=== PATIENT | female | born 1980 | race Caucasian/White ===

== ENCOUNTER → 2022-02-07 07:57 | Outpatient (BNVA) | payer OTHER, SELFPAY | PROVIDERS: PCP Pediatrics; Visit Provider Nurse Practitioner Family | DX: G70.00 Myasthenia gravis without (acute) exacerbation (principal); B02.9 Zoster without complications; H53.2 Diplopia; K58.9 Irritable bowel syndrome, unspecified; Z79.899 Other long term (current) drug therapy | CPT/HCPCS: 99212 ==

== ENCOUNTER → 2022-11-29 08:12 | Outpatient (BNVA) | payer OTHER, SELFPAY | PROVIDERS: PCP Pediatrics; Visit Provider Nurse Practitioner Family | DX: Z13.89 Encounter for screening for other disorder (principal) ==

== ENCOUNTER 2023-07-15 08:02 | Outpatient (AMB) | payer OTHER, SELFPAY ==
--- NOTE | 2023-07-15 08:07 | MHC.OFFVIS ---
Intake Vital Signs 07/15/23 08:08 Height 5 ft 2 in Weight 277 lb 2 oz BMI 50.7 BP 130/92 H Blood Pressure Location Rt brachial Position Sitting Pulse 86 Pulse Source Pulse Oximeter Pulse Oximetry (%) 97 Oxygen Delivery Method Room Air Intake Visit Reasons: 4m follow up - Confirmed Intake Note: Patient presents for follow up. Patient states no concerns today. Allergies hydromorphone [From Dilaudid] Allergy (Severe, Verified 07/15/23 08:09) Hives sulfamethoxazole [From Bactrim] Allergy (Severe, Verified 07/15/23 08:09) Rash trimethoprim [From Bactrim] Allergy (Severe, Verified 07/15/23 08:09) Rash clindamycin Allergy (Intermediate, Verified 07/15/23 08:09) Rash acetaminophen [From Percocet] Allergy (Mild, Verified 07/15/23 08:09) axitation erythromycin base Allergy (Mild, Verified 07/15/23 08:09) mg flare oxycodone [From Percocet] Allergy (Mild, Verified 07/15/23 08:09) axitation Medication List - Last Reconciled 07/15/23 by ELINOR Ramon cephalexin 500 mg PO TID escitalopram oxalate (Lexapro) 5 mg PO DAILY ketoconazole 2% appl topical DAILY levothyroxine 75 mcg PO DAILY liothyronine (Cytomel) 5 mcg PO BID lisinopril 20 mg PO DAILY mometasone 0.1% appl topical DAILY pyridostigmine bromide (Mestinon) 30 mg orally 6 times a day, may take extra 1-2 doses per day prn diplopia; 90 days semaglutide (Ozempic) 1 mg subcut QWEEK HPI HPI Comments History of Present Illness Details 43-yr-old female presents for f/u visit. She had another Covid-19 infection in early Jun- states was primarily cold/flu s/s, fatigued, sore legs. Pt reports she had a weight increase and had increased snoring. She had a HST which showed mild sleep apnea. She is sleeping better with CPAP and has more daytiem energy. F/b SMS- Nandini. She also started Ozempic- for pre-diabetes and weight loss. She states her MG is stable- intermittent diplopia, swallowing, and generalized weakness- worse when the weather is warmer and more humid.. She is taking Mestinon 30mg 5 x's per day, if increased triggers (being outside) may take an extra 1-2 1/2 tabs per day. Her MG AB labs are still pending. Since the weight gain, she is feeling more off-balance. This can overlap w/ when her MG symptoms have flared up. May use a cane when walking on her own. [facility] Medical History (Reviewed 11/29/22 @ 08:22 by Donita Moon [facility] [address]) COVID-19 virus infection Depression Hypothyroidism Surgical History Hx of cholecystectomy Family History (Updated 07/15/23 @ 08:12 by COREY Meier) Mother Diabetes HTN (hypertension) Hyperlipidemia Father Diabetes HTN (hypertension) Hyperlipidemia Skin cancer Social History Alcohol intake: current Alcohol intake frequency: a few times a week Patient Tobacco Use Status: Never used Tobacco Review of Systems Const All systems reviewed & are unremarkable except as noted in HPI and below Physical Exam Vital Signs: Last Vital Signs Pulse 86 07/15/23 08:08 BP 130/92 H 07/15/23 08:08 Pulse Ox 97 07/15/23 08:08 Oxygen Delivery Method Room Air 07/15/23 08:08 BMI result Body Mass Index 50.7 Const General: cooperative and no acute distress Orientation/consciousness: patient oriented x3 HEENT Head: Yes normocephalic Resp Effort & Inspection: normal respiratory effort and able to speak in complete sentences Neuro General: patient oriented x3, gait normal and CN's II-XI intact bilaterally Cognition (Neuro): normal cognition Motor exam (neuro): 5/5 motor strength present throughout Psych Appearance: grossly normal Mental Status: mental status grossly normal Speech and movement: Normal speech and movement present Affect: normal affect Attitude: cooperative Thought process: Normal thought process present Thought content: Normal thought content present Insight: Good insight present (Psych) Judgement: Good judgement present (Psych) Assessment & Plan Assessment & Plan (1) Myasthenia gravis: Comment: ACHR-AB negative Code(s): G70.00 - Myasthenia gravis without (acute) exacerbation (2) Diplopia: Code(s): H53.2 - Diplopia (3) IBS (irritable bowel syndrome): Code(s): K58.9 - Irritable bowel syndrome without diarrhea (4) Weakness: Code(s): R53.1 - Weakness Plan Will request MG AB labs when available. For now, continue Mestinon 60mg- 1/2 tab 4-6 times per day, and extra 1/2 tab as needed. Continue increased exercise, adhering to a healthy diet, MG trigger avoidance as able Monitor myasthenia symptoms- diplopia, swallowing, and generalized weakness. Future considerations: Cellcept, IvIG Medications: Refilled pyridostigmine bromide (Mestinon) (1/2 x 60 mg) 30 mg orally 6 times a day, may take extra 1-2 doses per day prn diplopia; 90 days 285 tabs 1RF Coding Level of Care Code Est Pt Level 4 (84053) Diagnoses Myasthenia gravis G70.00 Diplopia H53.2 IBS (irritable bowel syndrome) K58.9 Weakness R53.1
[2023-07-15 08:08] VITALS: BP 130/92; PULSE 86; O2SAT 97; BMI 50.7
== END 2023-07-15 08:48 | disposition home or self-care (01) ==
PROVIDERS: Visit Provider Nurse Practitioner Family
DX: G70.00 Myasthenia gravis without (acute) exacerbation (principal); H53.2 Diplopia; K58.9 Irritable bowel syndrome, unspecified; R53.1 Weakness
CPT/HCPCS: 99214

== ENCOUNTER → 2023-07-15 08:02 | Outpatient (BNVA) | payer OTHER, SELFPAY | PROVIDERS: Visit Provider Nurse Practitioner Family | DX: G70.00 Myasthenia gravis without (acute) exacerbation (principal) ==

== ENCOUNTER 2024-01-15 09:14 | Outpatient (AMB) | payer OTHER, SELFPAY ==
--- NOTE | 2024-01-15 09:15 | MHC.OFFVIS ---
Intake Intake Visit Reasons: 6m follow up-LVM Intake Note: Patient presents for6 month follow up. pt. wants to discuss medication dosage. Allergies hydromorphone [From Dilaudid] Allergy (Severe, Verified 01/15/24 09:16) Hives sulfamethoxazole [From Bactrim] Allergy (Severe, Verified 01/15/24 09:16) Rash trimethoprim [From Bactrim] Allergy (Severe, Verified 01/15/24 09:16) Rash clindamycin Allergy (Intermediate, Verified 01/15/24 09:16) Rash acetaminophen [From Percocet] Allergy (Mild, Verified 01/15/24 09:16) axitation erythromycin base Allergy (Mild, Verified 01/15/24 09:16) mg flare oxycodone [From Percocet] Allergy (Mild, Verified 01/15/24 09:16) axitation Medication List - Last Reconciled 01/15/24 by ELINOR Ramon cephalexin 500 mg PO TID escitalopram oxalate (Lexapro) 5 mg PO DAILY ketoconazole 2% appl topical DAILY levothyroxine 75 mcg PO DAILY liothyronine (Cytomel) 5 mcg PO BID lisinopril 20 mg PO DAILY mometasone 0.1% appl topical DAILY pyridostigmine bromide (Mestinon) 30 mg orally 6 times a day, may take extra 1-2 doses per day prn diplopia; 90 days semaglutide (Ozempic) 1 mg subcut QWEEK HPI HPI Comments History of Present Illness Details 43-yr-old female presents for f/u televideo visit via [employer]. Pt reports she has not been She had a Covid-19 negative URI and a post-viral cough x's 2 months and GIs/s. CXR- was WNL. She did sprain her side from coughing, and could not get up much x's the last 1-2 month. This has led to another 20lb weight gain. Her Ozempic was held when she was sick, but this has been resumed recently. She resumed her nutrition plan. She has been noticing more pronounced diplopia. Wakes up with diplopia, cannot see her phone. Needing to take more Mestinon in order to use her computer more frequently- from 30mg to 60mg a few times a week. Otherwise taking 30mg qid. She has been having increased chewing (jaw becomes tired) and swallowing difficulties- takes more effort- timing eating around the timing of her Mestinon. Has not noticed any SOB- but has just recently been more active. Needing to use her cane again- her body is uncomfortable. She notes the weight gain has not helped her mobility. She has to plan to sit down after showering d/t the humidity causing her to feel more weak. Her mood is good. Is seeing her therapist weekly. [facility] Medical History COVID-19 virus infection Depression Hypothyroidism Surgical History Hx of cholecystectomy Family History Mother Diabetes HTN (hypertension) Hyperlipidemia Father Diabetes HTN (hypertension) Hyperlipidemia Skin cancer Social History Alcohol intake: current Alcohol intake frequency: a few times a week Patient Tobacco Use Status: Never used Tobacco Physical Exam Const General: cooperative and no acute distress Orientation/consciousness: patient oriented x3 Resp Effort & Inspection: normal respiratory effort and able to speak in complete sentences Neuro General: patient oriented x3 Cognition (Neuro): normal cognition Psych Appearance: grossly normal Mental Status: mental status grossly normal Speech and movement: Normal speech and movement present Affect: normal affect Attitude: cooperative Assessment & Plan Assessment & Plan (1) Myasthenia gravis: Comment: ACHR-AB negative Code(s): G70.00 - Myasthenia gravis without (acute) exacerbation (2) Diplopia: Code(s): H53.2 - Diplopia (3) Weakness: Code(s): R53.1 - Weakness (4) Mild obstructive sleep apnea: Code(s): G47.33 - Obstructive sleep apnea (adult) (pediatric) (5) Weight gain: Code(s): R63.5 - Abnormal weight gain Plan ACHR AB and anti-MuSK AB- negative. Increase Mestinon 30mg tid and 60mg at bedtime, may increase up to 60mg QID and extra 1/2 tab as needed. Continue adhering to a healthy diet, MG trigger avoidance as able. Increase physical activity- slowly, paced. Monitor myasthenia symptoms- diplopia, swallowing, and generalized weakness. Future considerations: Mestinon extended release, Cellcept, IvIG Telehealth Telehealth Location of provider rendering services: practice address Location of patient: address on file Patient Identification confirmed using: Name, : Yes Telehealth method: video Patient verbally consented to treatment: Yes Patient verbally consented to billing insurance company: Yes Patient informed of any privacy concerns related to visit: Yes Minutes spent on Phone/Video with Pt.: 23 Coding Level of Care Code Tele Est Pt Level 4 (48172) Diagnoses Myasthenia gravis G70.00 Diplopia H53.2 Weakness R53.1 Mild obstructive sleep apnea G47.33 Weight gain R63.5
== END 2024-01-15 14:26 | disposition home or self-care (01) ==
LOC: HO.HSMS 09:15
PROVIDERS: PCP Pediatrics; Visit Provider Nurse Practitioner Family
DX: G70.00 Myasthenia gravis without (acute) exacerbation (principal); H53.2 Diplopia; R53.1 Weakness; G47.33 Obstructive sleep apnea (adult) (pediatric); R63.5 Abnormal weight gain
CPT/HCPCS: 99214

== ENCOUNTER → 2024-01-15 09:14 | Outpatient (BNVA) | payer OTHER, SELFPAY | PROVIDERS: PCP Pediatrics; Visit Provider Nurse Practitioner Family | DX: G70.00 Myasthenia gravis without (acute) exacerbation (principal) ==

== ENCOUNTER 2024-04-30 08:48 | Outpatient (AMB) | payer OTHER, SELFPAY ==
--- NOTE | 2024-04-30 08:52 | A.OFFVIS_ITS ---
Vital Signs 04/30/24 08:53 Height 5 ft Weight 289 lb BMI 56.4 BP 114/84 Blood Pressure Location Rt brachial Position Sitting Pulse 90 Pulse Source Pulse Oximeter Pulse Oximetry (%) 96 Oxygen Delivery Method Room Air Intake Visit Reasons: follow up - LVM Intake Note: Patient presents for follow up. patient has no changes. Allergies hydromorphone [From Dilaudid] Allergy (Severe, Verified 04/30/24 08:56) Hives sulfamethoxazole [From Bactrim] Allergy (Severe, Verified 04/30/24 08:56) Rash trimethoprim [From Bactrim] Allergy (Severe, Verified 04/30/24 08:56) Rash clindamycin Allergy (Intermediate, Verified 04/30/24 08:56) Rash acetaminophen [From Percocet] Allergy (Mild, Verified 04/30/24 08:56) axitation erythromycin base Allergy (Mild, Verified 04/30/24 08:56) mg flare oxycodone [From Percocet] Allergy (Mild, Verified 04/30/24 08:56) axitation Medication List - Last Reconciled 04/30/24 by ELINOR Ramon cephalexin 500 mg PO TID escitalopram oxalate (Lexapro) 5 mg PO DAILY ketoconazole 2% appl topical DAILY levothyroxine 75 mcg PO DAILY liothyronine (Cytomel) 5 mcg PO BID lisinopril 20 mg PO DAILY mometasone 0.1% appl topical DAILY pyridostigmine bromide (Mestinon) 30 mg orally 6 times a day, may take extra 1-2 doses per day prn diplopia; 90 days semaglutide (Ozempic) 1 mg subcut QWEEK HPI Comments Details: 44-yr-old female presents for f/u visit. Pt denies any significant interval medical changes. Pt reports she is still struggling with mobility, which has affected her ability to do her ADLs and walk well. She notes some days are better than others. Some days she feels overall weaker, triggered by the warmer temperatures or temperature changes- which she contributes to the MG. Feels this in her arms, but can be in her legs and generalized as well. Sometimes trouble swallowing- gagging on her own saliva in the am. Not noticing SOB- but not overly active. She finds herself needing to support herself- say leaning against counter, proppring ehrself up on the couch, using a cane. She has increased the Mestinon to 60mg tab - tid w/ extra 1/2 tab prn. (1, 11/18, 11/18, 1). The tab at night, helps to suppress her nocturnal diplopia. She is still trying to mange her triggers. Resting in an space w/ AC and taking 1/2 tab Mesitinon helps after 15-20 minutes- but this can prevent her from driving or engaging in activities while waiting. [facility] Medical History COVID-19 virus infection Depression Hypothyroidism Surgical History Hx of cholecystectomy Family History Mother Diabetes HTN (hypertension) Hyperlipidemia Father Diabetes HTN (hypertension) Hyperlipidemia Skin cancer Social History Alcohol intake: current Alcohol intake frequency: a few times a week Patient Tobacco Use Status: Never used Tobacco Review of Systems Const All systems reviewed & are unremarkable except as noted in HPI and below Physical Exam Vital Signs: Last Vital Signs Pulse 90 04/30/24 08:53 BP 114/84 04/30/24 08:53 Pulse Ox 96 04/30/24 08:53 Oxygen Delivery Method Room Air 04/30/24 08:53 BMI result Body Mass Index 56.4 Const General: cooperative and no acute distress Orientation/consciousness: patient oriented x3 HEENT Head: Yes normocephalic Resp Effort & Inspection: normal respiratory effort and able to speak in complete sentences Neuro General: patient oriented x3, gait normal and CN's II-XI intact bilaterally Cognition (Neuro): normal cognition Motor exam (neuro): 5/5 motor strength present throughout Psych Appearance: grossly normal Mental Status: mental status grossly normal Speech and movement: Normal speech and movement present Affect: normal affect Attitude: cooperative Thought process: Normal thought process present Thought content: Normal thought content present Insight: Good insight present (Psych) Judgement: Good judgement present (Psych) Assessment & Plan Assessment & Plan (1) Myasthenia gravis: Comment: ACHR-AB negative Code(s): - Myasthenia gravis without (acute) exacerbation Category: Medical Plan ACHR AB and anti-MuSK AB- negative. Start Mycophenolate mofetil 500mg orally twice a day in hopes this improves MG control- reduces weakness, diplopia, dysphagia. Would avoid chronic glucocorticoids, such as prednisone, use d/t risk for weight gain. Increase Mestinon to 180mg ER bid, as Mycophenolate mofetil may take 6-12 months to take full effect. May continue Mestinon 30mg tid prn. With starting Mycophenolate mofetil, will monitor labs closely. Lab orders mailed to pt and written instruction sent via portal. CBC w/ diff baseline weekly for first month, twice monthly during months 2 and 3, then monthly thereafter through the first year. CMP baseline and then monthly HCG baseline and in 2 weeks Hep B & C profile- baseline. Pt should establish care w/ a air value tester if she does not have one. Concur w/ starting PT and OT. Monitor myasthenia symptoms- diplopia, swallowing, and generalized weakness. f/u upon review of labs and in clinic in 3-4 months or sooner prn. Orders: Orders Complete Blood Count Auto Diff 04/30/24 G70. - Myasthenia gravis without (acute) exacerbation Hepatitis B,C Profile 04/30/2470. - Myasthenia gravis without (acute) exacerbation Comprehensive Met. Panel 04/30/24 G70. - Myasthenia gravis without (acute) exacerbation HCG Quantitative 04/30/2470. - Myasthenia gravis without (acute) exacerbation Medications: New pyridostigmine bromide ER (Mestinon Timespan) administer 6 hours apart 180 mg PO BID 60 tabs 6RF 30 days mycophenolate mofetil (CellCept) 500 mg PO BID 60 tabs 6RF 30 days Coding Level of Care Code Est Pt Level 4 (77925) Diagnoses Myasthenia gravis G
[2024-04-30 08:53] VITALS: BP 114/84; PULSE 90; O2SAT 96; BMI 56.4
== END 2024-04-30 09:58 | disposition home or self-care (01) ==
PROVIDERS: PCP Pediatrics; Visit Provider Nurse Practitioner Family
DX: G70.00 Myasthenia gravis without (acute) exacerbation (principal)
CPT/HCPCS: 99214

== ENCOUNTER → 2024-04-30 08:48 | Outpatient (BNVA) | payer OTHER, SELFPAY | PROVIDERS: PCP Pediatrics; Visit Provider Nurse Practitioner Family | DX: G70.00 Myasthenia gravis without (acute) exacerbation (principal) ==

== ENCOUNTER 2024-05-21 14:37 | Outpatient (REF) | payer OTHER, SELFPAY ==
[2024-05-21 14:58] LABS: MANUAL DIFF FLAG NO
[2024-05-21 15:36] LABS: Basophils Percent Auto 0.4 % (0-2); Eosinophils Absolute Auto 0.1 X10*3/uL (0.0-0.4); Eosinophils Percent Auto 1.1 % (0-4); Hematocrit 40.8 % (37.0-47.0); Hemoglobin 13.5 g/dl (12.0-16.0); Imm Gran Abs Auto 0.04 X10*3/uL (0.00-0.03); Imm Gran Pct Auto 0.5 % (0.0-0.4); Lymphocytes Absolute Auto 2.3 X10*3/uL (1.2-4.9); Lymphocytes Percent Auto 27.5 % (20-40); Mean Corpuscular HGB Conc 33.1 g/dl (31.0-35.0); Mean Corpuscular Hemoglobin 30.9 pg (27.0-33.0); Mean Corpuscular Volume 93.4 fL (80.0-98.0); Monocytes Absolute Auto 0.5 X10*3/uL (0.1-1.2); Monocytes Percent Auto 6.2 % (2-11); Neutrophils Absolute Auto 5.3 x10*3/uL (2.0-8.3); Neutrophils Percent Auto 64.3 % (45-73); Platelet Count 264 X10*3/uL (160-400); Red Blood Count 4.37 X10*6/uL (4.20-5.50); Red Cell Distribution Width 13.1 % (11.0-16.0); White Blood Count 8.2 X10*3/uL (4.8-10.8)
[2024-05-21 15:58] LABS: Alanine Aminotransferase 41 U/L (0-31); Albumin Level 4.5 g/dL (3.5-5.0); Alkaline Phosphatase 76 U/L (39-117); Anion Gap 13 (12-20); Aspartate Amino Transferase 22 U/L (5-31); Bilirubin Total 0.2 mg/dL (0.0-1.0); Blood Urea Nitrogen 13 mg/dL (9-16); Carbon Dioxide 23 mmol/L (22-29); Chloride 107 mmol/L (96-108); Estimated Glomerular Filt Rate > 60; Glucose Random 100 mg/dL (60-115); Potassium 3.9 mmol/L (3.3-5.1); Sodium 139 mmol/L (135-145); Total Protein 7.6 g/dL (6.5-8.0)
[2024-05-21 16:01] LABS: HCG Quantitative < 2 mIU/mL
[2024-05-22 03:50] LABS: HBS Num1 72.55 mIU/mL (0-7.99); HBc Num1 0.05 S/CO (0.00-0.79); HBsAGNum1 0.29 S/CO (0.00-0.99); Hepatitis B Core Antibody Nonreactive (Nonreactive); Hepatitis B Surface Antigen Negative (Negative); ~HepC Num1 0.05 S/CO (0.00-0.79); ~Hepatitis B Surface Antibody REACTIVE (Nonreactive); ~Hepatitis C Antibody Nonreactive (Nonreactive)
== END 2024-05-21 14:38 | disposition home or self-care (01) ==
LOC: HO.LAB 14:37
PROVIDERS: Visit Provider Nurse Practitioner Family
DX: G70.00 Myasthenia gravis without (acute) exacerbation (principal)
CPT/HCPCS: 36415; 80053; 84702; 85025; 86704; 86706; 86803; 87340

== ENCOUNTER 2024-05-31 15:58 | Outpatient (REF) | payer OTHER, SELFPAY ==
[2024-05-31 16:19] LABS: MANUAL DIFF FLAG NO
[2024-05-31 16:33] LABS: Basophils Percent Auto 0.4 % (0-2); Eosinophils Absolute Auto 0.1 X10*3/uL (0.0-0.4); Eosinophils Percent Auto 1.5 % (0-4); Hemoglobin 13.2 g/dl (12.0-16.0); Imm Gran Abs Auto 0.02 X10*3/uL (0.00-0.03); Imm Gran Pct Auto 0.3 % (0.0-0.4); Lymphocytes Absolute Auto 2.5 X10*3/uL (1.2-4.9); Lymphocytes Percent Auto 31.2 % (20-40); Mean Corpuscular Hemoglobin 31.1 pg (27.0-33.0); Mean Corpuscular Volume 94.3 fL (80.0-98.0); Mean Platelet Volume 10.6 fL (9.4-12.3); Monocytes Absolute Auto 0.5 X10*3/uL (0.1-1.2); Monocytes Percent Auto 6.7 % (2-11); Neutrophils Absolute Auto 4.8 x10*3/uL (2.0-8.3); Neutrophils Percent Auto 59.9 % (45-73); Platelet Count 275 X10*3/uL (160-400); Red Blood Count 4.24 X10*6/uL (4.20-5.50); Red Cell Distribution Width 12.8 % (11.0-16.0)
== END 2024-05-31 15:59 | disposition home or self-care (01) ==
LOC: HO.LABR 15:58
PROVIDERS: PCP Pediatrics; Visit Provider Nurse Practitioner Family
DX: G70.00 Myasthenia gravis without (acute) exacerbation (principal)
CPT/HCPCS: 36415; 85025

== ENCOUNTER 2024-06-07 16:16 | Outpatient (REF) | payer OTHER, SELFPAY ==
[2024-06-07 16:29] LABS: MANUAL DIFF FLAG NO
[2024-06-07 16:41] LABS: Basophils Percent Auto 0.5 % (0-2); Eosinophils Absolute Auto 0.1 X10*3/uL (0.0-0.4); Hematocrit 41.2 % (37.0-47.0); Hemoglobin 13.4 g/dl (12.0-16.0); Imm Gran Abs Auto 0.02 X10*3/uL (0.00-0.03); Imm Gran Pct Auto 0.2 % (0.0-0.4); Lymphocytes Percent Auto 24.7 % (20-40); Mean Corpuscular HGB Conc 32.5 g/dl (31.0-35.0); Mean Corpuscular Hemoglobin 31.5 pg (27.0-33.0); Mean Corpuscular Volume 96.7 fL (80.0-98.0); Monocytes Absolute Auto 0.4 X10*3/uL (0.1-1.2); Monocytes Percent Auto 5.3 % (2-11); Neutrophils Absolute Auto 5.5 x10*3/uL (2.0-8.3); Neutrophils Percent Auto 68.3 % (45-73); Platelet Count 248 X10*3/uL (160-400); Red Blood Count 4.26 X10*6/uL (4.20-5.50); White Blood Count 8.1 X10*3/uL (4.8-10.8)
[2024-06-07 17:16] LABS: HCG Quantitative < 2 mIU/mL
== END 2024-06-07 16:17 | disposition home or self-care (01) ==
LOC: HO.LAB 16:16
PROVIDERS: PCP Pediatrics; Visit Provider Nurse Practitioner Family
DX: G70.00 Myasthenia gravis without (acute) exacerbation (principal)
CPT/HCPCS: 36415; 84702; 85025

== ENCOUNTER 2024-06-22 08:26 | Outpatient (REF) | payer OTHER, SELFPAY ==
[2024-06-22 08:53] LABS: MANUAL DIFF FLAG NO
[2024-06-22 10:16] LABS: Basophils Percent Auto 0.4 % (0-2); Eosinophils Absolute Auto 0.1 X10*3/uL (0.0-0.4); Eosinophils Percent Auto 1.2 % (0-4); Hematocrit 41.9 % (37.0-47.0); Hemoglobin 13.8 g/dl (12.0-16.0); Imm Gran Abs Auto 0.03 X10*3/uL (0.00-0.03); Imm Gran Pct Auto 0.4 % (0.0-0.4); Lymphocytes Absolute Auto 1.7 X10*3/uL (1.2-4.9); Mean Corpuscular HGB Conc 32.9 g/dl (31.0-35.0); Mean Corpuscular Hemoglobin 30.8 pg (27.0-33.0); Mean Corpuscular Volume 93.5 fL (80.0-98.0); Mean Platelet Volume 11.2 fL (9.4-12.3); Monocytes Absolute Auto 0.4 X10*3/uL (0.1-1.2); Monocytes Percent Auto 6.4 % (2-11); Neutrophils Absolute Auto 4.4 x10*3/uL (2.0-8.3); Neutrophils Percent Auto 65.6 % (45-73); Platelet Count 246 X10*3/uL (160-400); Red Blood Count 4.48 X10*6/uL (4.20-5.50); Red Cell Distribution Width 12.6 % (11.0-16.0); White Blood Count 6.7 X10*3/uL (4.8-10.8)
[2024-06-22 11:07] LABS: Alanine Aminotransferase 41 U/L (0-31); Albumin Level 4.4 g/dL (3.5-5.0); Alkaline Phosphatase 66 U/L (39-117); Anion Gap 18 (12-20); Aspartate Amino Transferase 27 U/L (5-31); Bilirubin Total 0.3 mg/dL (0.0-1.0); Blood Urea Nitrogen 12 mg/dL (9-16); Calcium 9.6 mg/dL (8.4-10.2); Carbon Dioxide 20 mmol/L (22-29); Chloride 105 mmol/L (96-108); Estimated Glomerular Filt Rate > 60; Glucose Random 140 mg/dL (60-115); Potassium 4.2 mmol/L (3.3-5.1); Sodium 139 mmol/L (135-145); Total Protein 7.4 g/dL (6.5-8.0)
== END 2024-06-22 08:27 | disposition home or self-care (01) ==
LOC: HO.LAB 08:26
PROVIDERS: PCP Pediatrics; Visit Provider Nurse Practitioner Family
DX: G70.00 Myasthenia gravis without (acute) exacerbation (principal)
CPT/HCPCS: 36415; 80053; 85025

== ENCOUNTER 2024-07-05 16:14 | Outpatient (REF) | payer OTHER, SELFPAY ==
[2024-07-05 16:29] LABS: MANUAL DIFF FLAG NO
[2024-07-05 16:45] LABS: Basophils Percent Auto 0.4 % (0-2); Eosinophils Absolute Auto 0.1 X10*3/uL (0.0-0.4); Eosinophils Percent Auto 1.3 % (0-4); Hematocrit 40.7 % (37.0-47.0); Hemoglobin 13.1 g/dl (12.0-16.0); Imm Gran Abs Auto 0.04 X10*3/uL (0.00-0.03); Imm Gran Pct Auto 0.5 % (0.0-0.4); Lymphocytes Absolute Auto 2.1 X10*3/uL (1.2-4.9); Lymphocytes Percent Auto 27.6 % (20-40); Mean Corpuscular HGB Conc 32.2 g/dl (31.0-35.0); Mean Corpuscular Hemoglobin 30.8 pg (27.0-33.0); Mean Corpuscular Volume 95.5 fL (80.0-98.0); Mean Platelet Volume 10.9 fL (9.4-12.3); Monocytes Absolute Auto 0.5 X10*3/uL (0.1-1.2); Monocytes Percent Auto 6.3 % (2-11); Neutrophils Percent Auto 63.9 % (45-73); Platelet Count 255 X10*3/uL (160-400); Red Blood Count 4.26 X10*6/uL (4.20-5.50); Red Cell Distribution Width 12.7 % (11.0-16.0); White Blood Count 7.8 X10*3/uL (4.8-10.8)
== END 2024-07-05 16:15 | disposition home or self-care (01) ==
LOC: HO.LAB 16:14
PROVIDERS: PCP Pediatrics; Visit Provider Nurse Practitioner Family
DX: G70.00 Myasthenia gravis without (acute) exacerbation (principal)
CPT/HCPCS: 36415; 85025

== ENCOUNTER 2024-08-03 14:32 | Outpatient (REF) | payer OTHER, SELFPAY ==
[2024-08-03 14:53] LABS: MANUAL DIFF FLAG NO
[2024-08-03 15:14] LABS: Basophils Percent Auto 0.4 % (0-2); Eosinophils Absolute Auto 0.1 X10*3/uL (0.0-0.4); Eosinophils Percent Auto 1.2 % (0-4); Hematocrit 40.8 % (37.0-47.0); Hemoglobin 13.5 g/dl (12.0-16.0); Imm Gran Abs Auto 0.02 X10*3/uL (0.00-0.03); Imm Gran Pct Auto 0.3 % (0.0-0.4); Lymphocytes Absolute Auto 1.9 X10*3/uL (1.2-4.9); Lymphocytes Percent Auto 28.1 % (20-40); Mean Corpuscular HGB Conc 33.1 g/dl (31.0-35.0); Mean Corpuscular Hemoglobin 31.4 pg (27.0-33.0); Mean Corpuscular Volume 94.9 fL (80.0-98.0); Mean Platelet Volume 10.9 fL (9.4-12.3); Monocytes Absolute Auto 0.5 X10*3/uL (0.1-1.2); Monocytes Percent Auto 7.5 % (2-11); Neutrophils Absolute Auto 4.3 x10*3/uL (2.0-8.3); Neutrophils Percent Auto 62.5 % (45-73); Platelet Count 255 X10*3/uL (160-400); Red Cell Distribution Width 12.5 % (11.0-16.0); White Blood Count 6.8 X10*3/uL (4.8-10.8)
[2024-08-03 15:47] LABS: Alanine Aminotransferase 45 U/L (0-31); Albumin Level 4.4 g/dL (3.5-5.0); Alkaline Phosphatase 73 U/L (39-117); Anion Gap 12 (12-20); Aspartate Amino Transferase 27 U/L (5-31); Bilirubin Total 0.2 mg/dL (0.0-1.0); Blood Urea Nitrogen 12 mg/dL (9-16); Calcium 9.9 mg/dL (8.4-10.2); Carbon Dioxide 27 mmol/L (22-29); Chloride 106 mmol/L (96-108); Estimated Glomerular Filt Rate > 60; Glucose Random 107 mg/dL (60-115); Sodium 141 mmol/L (135-145); Total Protein 7.3 g/dL (6.5-8.0)
== END 2024-08-03 14:33 | disposition home or self-care (01) ==
LOC: HO.LAB 14:32
PROVIDERS: PCP Pediatrics; Visit Provider Nurse Practitioner Family
DX: G70.00 Myasthenia gravis without (acute) exacerbation (principal)
CPT/HCPCS: 36415; 80053; 85025

== ENCOUNTER 2024-09-17 15:20 | Outpatient (REF) | payer OTHER, SELFPAY ==
[2024-09-17 15:32] LABS: MANUAL DIFF FLAG NO
[2024-09-17 16:09] LABS: Basophils Percent Auto 0.4 % (0-2); Eosinophils Absolute Auto 0.1 X10*3/uL (0.0-0.4); Eosinophils Percent Auto 1.2 % (0-4); Hematocrit 40.6 % (37.0-47.0); Hemoglobin 13.4 g/dl (12.0-16.0); Imm Gran Abs Auto 0.02 X10*3/uL (0.00-0.03); Imm Gran Pct Auto 0.3 % (0.0-0.4); Lymphocytes Absolute Auto 2.3 X10*3/uL (1.2-4.9); Lymphocytes Percent Auto 31.3 % (20-40); Mean Corpuscular Hemoglobin 30.9 pg (27.0-33.0); Mean Corpuscular Volume 93.8 fL (80.0-98.0); Mean Platelet Volume 11.3 fL (9.4-12.3); Monocytes Absolute Auto 0.5 X10*3/uL (0.1-1.2); Monocytes Percent Auto 6.6 % (2-11); Neutrophils Absolute Auto 4.4 x10*3/uL (2.0-8.3); Neutrophils Percent Auto 60.2 % (45-73); Platelet Count 266 X10*3/uL (160-400); Red Blood Count 4.33 X10*6/uL (4.20-5.50); Red Cell Distribution Width 12.6 % (11.0-16.0); White Blood Count 7.3 X10*3/uL (4.8-10.8)
[2024-09-17 16:32] LABS: Alanine Aminotransferase 36 U/L (0-31); Albumin Level 4.5 g/dL (3.5-5.0); Alkaline Phosphatase 75 U/L (39-117); Anion Gap 15 (12-20); Aspartate Amino Transferase 27 U/L (5-31); Bilirubin Total 0.3 mg/dL (0.0-1.0); Blood Urea Nitrogen 12 mg/dL (9-16); Calcium 9.6 mg/dL (8.4-10.2); Carbon Dioxide 22 mmol/L (22-29); Chloride 107 mmol/L (96-108); Estimated Glomerular Filt Rate > 60; Glucose Random 90 mg/dL (60-115); Potassium 3.9 mmol/L (3.3-5.1); Sodium 140 mmol/L (135-145); Total Protein 7.2 g/dL (6.5-8.0)
== END 2024-09-17 15:21 | disposition home or self-care (01) ==
LOC: HO.LAB 15:20
PROVIDERS: PCP Pediatrics; Visit Provider Nurse Practitioner Family
DX: G70.00 Myasthenia gravis without (acute) exacerbation (principal)
CPT/HCPCS: 36415; 80053; 85025

== ENCOUNTER 2024-09-21 07:41 | Outpatient (AMB) | payer OTHER, SELFPAY ==
--- NOTE | 2024-09-21 07:41 | MHC.OFFVIS ---
Intake Visit Reasons: 3 month f/u Intake Note: Patient presents for follow up Allergies hydromorphone [From Dilaudid] Allergy (Severe, Verified 09/21/24 07:42) Hives sulfamethoxazole [From Bactrim] Allergy (Severe, Verified 09/21/24 07:42) Rash trimethoprim [From Bactrim] Allergy (Severe, Verified 09/21/24 07:42) Rash clindamycin Allergy (Intermediate, Verified 09/21/24 07:42) Rash acetaminophen [From Percocet] Allergy (Mild, Verified 09/21/24 07:42) axitation erythromycin base Allergy (Mild, Verified 09/21/24 07:42) mg flare oxycodone [From Percocet] Allergy (Mild, Verified 09/21/24 07:42) axitation Medication List - Last Reconciled 09/21/24 by ELINOR Ramon cephalexin 500 mg PO TID escitalopram oxalate (Lexapro) 5 mg PO DAILY ketoconazole 2% appl topical DAILY levothyroxine 75 mcg PO DAILY liothyronine (Cytomel) 5 mcg PO BID lisinopril 20 mg PO DAILY mometasone 0.1% appl topical DAILY mycophenolate mofetil (CellCept) 500 mg PO BID 30 days pyridostigmine bromide (Mestinon) 30 mg orally 6 times a day, may take extra 1-2 doses per day prn diplopia; 90 days pyridostigmine bromide ER (Mestinon Timespan) 180 mg PO BID 30 days semaglutide (Ozempic) 1 mg subcut QWEEK tirzepatide (weight loss) (Zepbound) mg subcut HPI Comments Details: 44-yr-old female presents for f/u televideo visit for myasthenia gravis. She feels overall much improved. Her weight loss tx was switched from Ozempic to Zepbound d/t change in her insurance formulary. 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 Has completed PT, doing some weight training exercises. Monitoring body composition- fat/muscle percentages. Has lost approx 10 lbs so far. Pt reports the extended release Mestinon and Mycophenolate has been helpful. Using the Mestinon 30mg prn usually once once a day, sometimes 2-3 times a day, rarely 4-5 times- only if in extended heat/humidity. Continues to try avoid heat/humidity, avoids night driving as diplopia is worse at night (has avoided this since dx). Tolerating increased Mestinon well- states usually w/ increased mestinon she may feel daytime creepy crawly restlessness, but has not noticed this. No significant GI effects. Monitoring her GI s/s as she is also on wt loss tx. Routine CBC/CMP- have been overall WNL- just very mild increase in AST at 41 which is trending down to last AST 36. She did notice increase in her general MG s/s- especially more generalized weakness- when she held the Mycophenolate for 2 weeks following her Covid-19 vaccination. However, this improved upon restarting the Mycophenolate. Her vision is better in the am- no longer waiting for mestinon to kick in before her diplopia subsides. She may still have gagging- typically triggered by allergies. Not noticing SOB. She is stronger now. Can now sit in her desk chair for an entire work day- supporting her arms and back on the chair/desk helps. Still needs support to hold herself up for longer times- say needing chair w/ arms and using a cane. She has increased the Mestinon to 60mg tab - tid w/ extra 1/2 tab prn. (1, 1/2, 1/2, 1). The tab at night, helps to suppress her nocturnal diplopia. She is still trying to mange her triggers. Resting in an space w/ AC and taking 1/2 tab Mesitinon helps after 15-20 minutes- but this can prevent her from driving or engaging in activities while waiting. [facility] Medical History COVID-19 virus infection Depression Hypothyroidism Surgical History Hx of cholecystectomy Family History Mother Diabetes HTN (hypertension) Hyperlipidemia Father Diabetes HTN (hypertension) Hyperlipidemia Skin cancer Social History Alcohol intake: current Alcohol intake frequency: a few times a week Patient Tobacco Use Status: Never used Tobacco Physical Exam Const General: cooperative and no acute distress Orientation/consciousness: patient oriented x3 Resp Effort & Inspection: normal respiratory effort and able to speak in complete sentences Neuro General: patient oriented x3 Cognition (Neuro): normal cognition Psych Appearance: grossly normal Mental Status: mental status grossly normal Speech and movement: Normal speech and movement present Affect: normal affect Attitude: cooperative Telehealth Telehealth Telehealth Platform: [employer] Location of provider rendering services: practice address Location of patient: address on file Patient Identification confirmed using: Name, : Yes Telehealth method: video Patient verbally consented to treatment: Yes Patient verbally consented to billing insurance company: Yes Patient informed of any privacy concerns related to visit: Yes Minutes spent on Phone/Video with Pt.: 29 Assessment & Plan Assessment & Plan (1) Myasthenia gravis: Comment: ACHR-AB negative Code(s): G70.00 - Myasthenia gravis without (acute) exacerbation Category: Medical (2) Weakness: Code(s): R53.1 - Weakness Category: Medical (3) Diplopia: Code(s): H53.2 - Diplopia Category: Medical Plan ACHR AB and anti-MuSK AB- negative. Hep B & C profile- negative. Continue Mycophenolate mofetil 500mg orally twice a day as pt is already seeing reduction in MG s/s of weakness, diplopia, dysphagia. Continue Mestinon to 180mg ER bid, as Mycophenolate mofetil may take 6-12 months to take full effect. May continue Mestinon 30mg tid prn. Would avoid chronic glucocorticoids, such as prednisone, use d/t risk for weight gain. Check Mycophenolate level. Check CBC and CMP monthly- orders written. CBC w/ diff baseline weekly for first month, twice monthly during months 2 and 3, then monthly thereafter through the first year. Pt should establish care w/ a ob/gyn doctor if she does not have one. Concur w/ weight loss efforts, optimizing diet, increasing physical and weight training exercises. Continue to avoid known MG triggers- heat/humidity. Monitor myasthenia symptoms- diplopia, swallowing, and generalized weakness. Will follow-up upon review of above and patient to follow-up in clinic in 3-4 months or sooner prn. Orders: Orders Other Ref Test - [facility] Today G70.00 - Myasthenia gravis without (acute) exacerbation, H53.2 - Diplopia, R53.1 - Weakness Complete Blood Count Auto Diff Today G70.00 - Myasthenia gravis without (acute) exacerbation Comprehensive Met. Panel Today G70.00 - Myasthenia gravis without (acute) exacerbation Comprehensive Met. Panel Today G70.00 - Myasthenia gravis without (acute) exacerbation Comprehensive Met. Panel 12/20/24 G70.00 - Myasthenia gravis without (acute) exacerbation Comprehensive Met. Panel 01/19/25 G70.00 - Myasthenia gravis without (acute) exacerbation Comprehensive Met. Panel 02/18/25 G70.00 - Myasthenia gravis without (acute) exacerbation Comprehensive Met. Panel 05/19/25 G70.00 - Myasthenia gravis without (acute) exacerbation Complete Blood Count Auto Diff Today G70.00 - Myasthenia gravis without (acute) exacerbation Complete Blood Count Auto Diff 12/20/24 G70.00 - Myasthenia gravis without (acute) exacerbation Complete Blood Count Auto Diff 07/18/25 G70.00 - Myasthenia gravis without (acute) exacerbation Complete Blood Count Auto Diff 08/17/25 G70.00 - Myasthenia gravis without (acute) exacerbation Comprehensive Met. Panel 10/21/24 G70.00 - Myasthenia gravis without (acute) exacerbation Comprehensive Met. Panel 11/20/24 G70.00 - Myasthenia gravis without (acute) exacerbation Comprehensive Met. Panel 03/20/25 G70.00 - Myasthenia gravis without (acute) exacerbation Comprehensive Met. Panel 04/19/25 G70.00 - Myasthenia gravis without (acute) exacerbation Comprehensive Met. Panel 06/18/25 G70.00 - Myasthenia gravis without (acute) exacerbation Comprehensive Met. Panel 07/18/25 G70.00 - Myasthenia gravis without (acute) exacerbation Comprehensive Met. Panel 08/17/25 G70.00 - Myasthenia gravis without (acute) exacerbation Complete Blood Count Auto Diff 10/21/24 G70.00 - Myasthenia gravis without (acute) exacerbation Complete Blood Count Auto Diff 11/20/24 G70.00 - Myasthenia gravis without (acute) exacerbation Complete Blood Count Auto Diff 01/19/25 G70.00 - Myasthenia gravis without (acute) exacerbation Complete Blood Count Auto Diff 02/18/25 G70.00 - Myasthenia gravis without (acute) exacerbation Complete Blood Count Auto Diff 03/20/25 G70.00 - Myasthenia gravis without (acute) exacerbation Complete Blood Count Auto Diff 04/19/25 G70.00 - Myasthenia gravis without (acute) exacerbation Complete Blood Count Auto Diff 05/19/25 G70.00 - Myasthenia gravis without (acute) exacerbation Complete Blood Count Auto Diff 06/18/25 G70.00 - Myasthenia gravis without (acute) exacerbation Coding Level of Care Code Tele Est Pt Level 4 (85928) Diagnoses Myasthenia gravis G70.00 Weakness R53.1 Diplopia H53.2
== END 2024-09-21 09:33 | disposition home or self-care (01) ==
LOC: HO.HSMS 07:41
PROVIDERS: PCP Pediatrics; Visit Provider Nurse Practitioner Family
DX: G70.00 Myasthenia gravis without (acute) exacerbation (principal); R53.1 Weakness; H53.2 Diplopia
CPT/HCPCS: 99214

== ENCOUNTER 2024-10-29 12:58 | Outpatient (REF) | payer OTHER, SELFPAY ==
--- OUTSIDE RECORDS SUMMARY | 2024-10-29 13:02 | XMS_ITS | Continuity of Care Document ---
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 Plan of Treatment Reminders Order Date Submit Date Provider Last Modified By Organization Details Last Modified Time Details Appointments FOLLOW UP 1 2024 10:45A Main Ring MD Not available Not available Not available Lab CMP, serum or plasma 2023 [facility], [address], [address], [place], [address], 09/20/2024 13:43:27 LDL, direct, serum 2023 [facility], [address], [place], [address], 09/07/2024 09:47:00 HbA1c (hemoglob in A1c), blood 2023 024 R[facility], [address], [address], [place], [address], 09/07/2024 09:47:01 T3, free, serum or plasma 2023 RICK [facility], [address], [place], [address], 09/07/2024 09:47:00 unlisted lab - TSH reflex to t4f 2023 [facility], [address], [place], [address], 09/07/2024 09:47:01 urinalysi s, complete 2023 [place] [facility], [address], [place], [address], 09/07/2024 09:46:59 Referral gynecolog ist referral - Patient to schedule 2023 Not available 09/07/2024 09:51:38 gastroent erologist referral - Needs colon cancer screening 2023 [email or web address] Bowen MD, [address] [place], [address], 10/11/2024 09:28:36 Procedures colonosco py screening (PROC) 2023 024 [email or web address] [facility], [address] [facility], [address], [place], [address], 09/07/2024 11:05:37 Surgeries None recorded. Imaging MAMMO, screening , bilateral - Perform Diagnosti c Mammogram and Breast Ultrasoun d if needed / Perform Ultrasoun d Guided Aspiratio n and/or Breast Biopsy if warranted 2023 [facility], [address] [facility], [place], [address], 09/07/2024 09:51:38 Medication Orders Zepbound 5 mg/0.5 mL subcutane ous pen injector 2023 [place] [id number], [id number] [place], [address], 10/22/2024 15:00:19 Patient TargetsNo targets recorded. Patient Instructions Encounter Date Encounter Id Patient Instructions Last Modified By Organization Details Last Modified Time 09/07/2024 [id number] depression treatment: care instructions awychowski Not available 09/07/2024 09:46:41 Cervical Cancer Screening awychowski Not available 09/07/2024 09:46:41 prediabetes: care instructions awychowski Not available 09/07/2024 09:46:41 body mass index: care instructions awychowski Not available 09/07/2024 09:46:40 learning about healthy weight awychowski Not available 09/07/2024 09:46:41 starting a weight loss plan: care instructions awychowski Not available 09/07/2024 09:46:40 Nutrition Referral and Weight Management Follow-up Information awychowski Not available 09/07/2024 09:46:40 learning about colon cancer awychowski Not available 09/07/2024 09:46:40 high blood pressure: care instructions awychowski Not available 09/07/2024 09:46:41 learning about high blood pressure awychowski Not available 09/07/2024 09:46:40 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 Referral for Sc reening for malignant neoplasm of cervix Patient to schedule Referring Physician: Family Lidia Medicine, Encounter Date: 09/07/2024 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 Referral for Screening for malignant neoplasm of colon Needs colon cancer screening Referring Physician: Family Celeste Murillo, Encounter Date: 09/07/2024 Problems Name Problem SNOMED Code Status Onset Date Resolution Date Notes Provider Name and Address Organization Details Recorded Time Anaphyla xis 54009380 Completed 201305/31/2014 STORY: UNKNOWN CAUSE OCT 2012; RECORDED 02/25/20 14 8:52AM BY ANGELO Siegel MD, ANNOTATI ON/ADDEN DUM Angelo Ring MD [address] [address], [place], [address] , [facility] 6 21:33:38 Anxiety state 090034926 Completed 201303/28/2016 Angelo Ring MD [address] [facility] [address], [place], [address] , [facility] 6 21:33:38 Patient status finding [id number] Completed 201205/31/2014 RECORDED 05/21/20 13 2:50PM BY GANESH HOPE MA, ANNOTATI ON/ADDEN DUM Angelo Ring MD [address] [facility] [address], [place], [address] , [facility] 6 21:33:38 Autoimmu ne disease 21607038 Completed 201305/31/2014 RECORDED 02/25/20 14 8:52AM BY ANGELO Siegel MD, ANNOTATI ON/ADDEN DUM Angelo Ring MD [address] [facility] [address], [place], [address] , [facility] 6 21:33:38 Hashimot o thyroidi tis 57215040 Active 2013 Not Available [facility] 3 13:43:23 Screenin g for malignan t neoplasm of cervix Completed 201305/31/2014 RECORDED 02/25/20 14 8:30AM BY CASSIA MCPHERSON MA, ANNOTATI ON/ADDEN DUM Angelo Ring MD [address] [facility] [address], [place], [address] , [facility] 6 21:33:38 Chest pain 14510780 Completed 201205/31/2014 IMPRESSI ON: SYMPTOMS C/W EIA POSSIBLE ANXIETY COMPONEN T. WILL TRY PRE EXERCISE MDI. ADVISED TO CALL IF PERSISTA NT/WORSE .; RECORDED 05/21/20 13 2:50PM BY GANESH HOPE MA, ANNOTATI ON/ADDEN DUM Angelo Ring MD [address] [facility] [address], [place], [address] , [facility] 6 21:33:38 Cough [id number] Completed 201312/09/2014 IMPRESSI ON: LUNGS ARE CLEAR, ALREADY ON AUGMENTI N FOR SINUSITI S WILL COMPLETE COURSE, REC. MUCOLYTI CS/HYDRA TION; RECORDED 03/03/20 14 11:53AM BY CHARLES PATHAK PA-C, OFFICE VISIT Angelo Ring MD [address] [facility] [address], [place], [address] , [facility] 6 21:33:38 Depressi ve disorder 54137930 Completed 201303/28/2016 Angelo Ring MD [address] [facility] [address], [place], [address] , [facility] 6 21:33:38 Recurren t major depressi ve episodes , in full remissio n Completed 201311/05/2019 Removal Reason: negative Angelo Ring MD [address] [facility] [address], [place], [address] , [facility] 9 09:34:27 Lyme disease 98312823 Completed 201305/31/2014 IMPRESSI ON: SXS CONSISTE NT WITH EARLY LYME, WILL TREAT. 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 I DO NOT SEE ANY BELLS PALSY AT THIS POINT. REASSURE Shine ZARATE THAT SHE HAS NO DROOP; RECORDED 02/25/20 14 8:52AM BY ANGELO Siegel MD, ANNOTATI ON/ADDEN DUM Angelo Ring MD [address] [facility] [address], [place], [address] , [facility] 6 21:33:38 Malaise and fatigue 578632468 Completed 201205/31/2014 IMPRESSI ON: COUPLED TO CHEST TIGHTNES S WITH INCREASE D ANXIETY RAISES POSSIBLI TY OF MOOD DISORDER . AT THE SAME TIME PRESENCE OF ABNORMAL THYROID LABS GENERATE S CONSERN FOR THAT CONTRIBU TING. WILL ASK ENDO FOR OPION ON THYROID LAB RESULTS AND WHETHER SYMPTOMS ARE REASONAB LE TO ATTRIBUT E TO THAT. IF NOT WILL NEED FURTHER EVAL AND CONSIDER ATION OF ANXIETY TREATMEN T.; RECORDED 01/28/20 13 4:18PM BY CASSIA MCPHERSON MA, ALEX ON/LEAH Ring MD [address] [facility] [address], [place], [address] , [facility] 6 21:33:38 Influenz a vaccine needed [id number] 06 Completed 201205/31/2014 RECORDED 07/31/20 13 10:03AM BY RAMYA BENTON I, NURSE VISIT Angelo Ring MD [address] [facility] [address], [place], [address] , [facility] 6 21:33:38 Adult health examinat ion Completed 201305/31/2014 IMPRESSI ON: IMMUNIZA TION STATUS UTD WILL SCREEN BASED ON RISK FACTORS. REGULAR DENTAL CARE AND SEATBELT USE ADVISED. DISTRACT ED DRIVING DISCUSSE D. CERVICAL CANCER SCREENIN G UTD. ADVANCE DIRECTIV ES DISCUSSE D AND IN PLACE.; RECORDED 03/03/20 14 9:43AM BY CALEB HENRY MA, ALEX ON/ DUM Angelo Ring MD [address] [facility] [address], [place], [address] , [facility] 6 21:33:38 Celiac disease 458804837 Completed 201304/02/2017 STORY: BLOOD TESTS NEGATIVE FOR CELIAC Angelo Ring MD [address] [facility] [address], [place], [address] , [facility] 7 10:21:10 History of infectio us disease 446455090 Completed 201205/31/2014 RECORDED 01/28/20 13 4:18PM BY CASSIA MCPHERSON MA, ALEX ON/ADD DUM Angelo Ring MD [address] [facility] [address], [place], [address] , [facility] 6 21:33:38 Obesity 992571709 Completed 201304/02/2017 IMPRESSI ON: POTENTIA L ADVERSE HEALTH CONSEQUE MOES DISCUSSE D. INCREASE D PHYSICAL ACTIVITY AND APPROPRI ATWE DIETARY CHANGES ADVISED. ; RECORDED 03/03/20 14 9:43AM BY CALEB HENRY MA, OFFICE VISIT Cherie Hannah PA-C [address] [address], [place], [address] , [facility] 3 15:22:51 Panic disorder without agorapho litzy 22229476 Completed 201305/31/2014 RECORDED 02/25/20 14 8:52AM BY ANGELO Siegel MD, ANNOTATI ON/ADDEN DUM Angelo Ring MD [address] [address], [place], [address] , [facility] 6 21:33:38 Immuniza tion refused Completed 201205/31/2014 RECORDED 01/28/20 13 4:18PM BY CASSIA MCPHERSON MA, ANNOTATI ON/ADDEN DUM Angelo Ring MD [address] [address], [place], [address] , [facility] 6 21:33:38 Chronic sinusiti s 89493292 Completed 201305/31/2014 IMPRESSI ON: C/W POST VIRAL SECONDAR Y BACTERIA L PROCESS. CALL INB/WORS E.; RECORDED 03/03/20 14 9:43AM BY CALEB HENRY MA, ANNOTATI ON/PINEDA Ring MD [address] [address], [place], [address] , [facility] 6 21:33:38 Tachycar effie 4204619 Completed 201205/31/2014 IMPRESSI ON: WILL SCREEN FOR CONDUCTI ON ABNORMAL ITY.; RECORDED 05/21/20 13 2:50PM BY GANESH HOPE MA, ANNOTATI ON/ADDEN DUM Angelo Ring MD [address] [facility] [address], [place], [address] , [facility] 6 21:33:38 Vitamin D deficien cy 27888323 Active 2013 Not Available [facility] 3 13:43:23 Anaphyla xis 17099536 Completed 201306/27/2014 STORY: UNKNOWN CAUSE OCT 2012; RECORDED 02/25/20 14 8:52AM BY ANGELO Siegel MD, ANNOTATI ON/ADDEN DUM Angelo Ring MD [address] [facility] [address], [place], [address] , [facility] 6 21:33:38 Patient status finding [id number] Completed 201206/27/2014 RECORDED 05/21/20 13 2:50PM BY GANESH HOPE MA, ANNOTATI ON/ADDEN DUM Angelo Ring MD [address] [facility] [address], [place], [address] , [facility] 6 21:33:38 Autoimmu ne disease 99064629 Completed 201306/27/2014 RECORDED 02/25/20 14 8:52AM BY ANGELO Siegel MD, ANNOTATI ON/ADD DUM Angelo Ring MD [address] [facility] [address], [place], [address] , [facility] 6 21:33:38 Screenin g for malignan t neoplasm of cervix Completed 201306/27/2014 RECORDED 02/25/20 14 8:30AM BY CASSAI MCPHERSON MA, ANNOTATI ON/ADDEN DUM Angelo Ring MD [address] [facility] [address], [place], [address] , [facility] 6 21:33:38 Chest pain 75752603 Completed 201206/27/2014 IMPRESSI ON: SYMPTOMS C/W EIA POSSIBLE ANXIETY COMPONEN T. WILL TRY PRE EXERCISE MDI. ADVISED TO CALL IF PERSISTA NT/WORSE .; RECORDED 05/21/20 13 2:50PM BY GANESH HOPE MA, ANNOTATI ON/ DUM Angelo Ring MD [address] [facility] [address], [place], [address] , [facility] 6 21:33:38 Lyme disease 30704726 Completed 201306/27/2014 IMPRESSI ON: SXS CONSISTE NT WITH EARLY LYME, WILL TREAT. 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 I DO NOT SEE ANY BELLS PALSY AT THIS POINT. REASSURE Shine ZARATE THAT SHE HAS NO DROOP; RECORDED 02/25/20 14 8:52AM BY ANGELO Siegel MD, CAROLINEATI ON/ DUM Angelo Ring MD [address] [facility] [address], [place], [address] , [facility] 6 21:33:38 Malaise and fatigue 822504215 Completed 201206/27/2014 IMPRESSI ON: COUPLED TO CHEST TIGHTNES S WITH INCREASE D ANXIETY RAISES POSSIBLI TY OF MOOD DISORDER . AT THE SAME TIME PRESENCE OF ABNORMAL THYROID LABS GENERATE S CONSERN FOR THAT CONTRIBU TING. WILL ASK ENDO FOR OPION ON THYROID LAB RESULTS AND WHETHER SYMPTOMS ARE REASONAB LE TO ATTRIBUT E TO THAT. IF NOT WILL NEED FURTHER EVAL AND CONSIDER ATION OF ANXIETY TREATMEN T.; RECORDED 01/28/20 13 4:18PM BY CASSIA MCPHERSON MA, CAROLINEATI ON/ DUM Angelo Ring MD [address] [facility] [address], [place], [address] , [facility] 6 21:33:38 Influenz a vaccine needed [id number] 06 Completed 201206/27/2014 RECORDED 07/31/20 13 10:03AM BY RAMYA BENTON I, NURSE VISIT Angelo Ring MD [address] [facility] [address], [place], [address] , [facility] 6 21:33:38 Adult health examinat ion Completed 201306/27/2014 IMPRESSI ON: IMMUNIZA TION STATUS UTD WILL SCREEN BASED ON RISK FACTORS. REGULAR DENTAL CARE AND SEATBELT USE ADVISED. DISTRACT ED DRIVING DISCUSSDanica [place]. CERVICAL CANCER SCREENIN G UTD. ADVANCE DIRECTIV ES DISCUSSDanica D AND IN PLACE.; RECORDED 03/03/20 14 9:43AM BY CALEB HENRY MA, ANNOTATI ON/ADDLEAH DUM Angelo Ring MD [address] [address], [place], [address] , [facility] 6 21:33:38 History of infectio us disease 040478173 Completed 201206/27/2014 RECORDED 01/28/20 13 4:18PM BY CASSIA MCPHERSON MA, ANNOTATI ON/PINEDA Ring MD [address] [address], [place], [address] , [facility] 6 21:33:38 Panic disorder without agorapho litzy 81590209 Completed 201306/27/2014 RECORDED 02/25/20 14 8:52AM BY ANGELO Siegel MD, ANNOTATI ON/PINEDA Ring MD [address] [address], [place], [address] , [facility] 6 21:33:38 Immuniza tion refused Completed 201206/27/2014 RECORDED 01/28/20 13 4:18PM BY CASSIA MCPHERSON MA, ANNOTATI ON/ DUM Angelo Ring MD [address] [address], [place], [address] , [facility] 6 21:33:38 Chronic sinusiti s 40475232 Completed 201306/27/2014 IMPRESSI ON: C/W POST VIRAL SECONDAR Y BACTERIA L PROCESS. CALL INB/WORS E.; RECORDED 03/03/20 14 9:43AM BY CALEB HENRY MA, ANNOTATI ON/ADDEN DUM Angelo Ring MD [address] [facility] [address], [place], [address] , [facility] 6 21:33:38 Tachycceci effie 2092997 Completed 201206/27/2014 IMPRESSI ON: WILL SCREEN FOR CONDUCTI ON ABNORMAL ITY.; RECORDED 05/21/20 13 2:50PM BY GANESH HOPE MA, ANNOTATI ON/ADDEN DUM Angelo Ring MD [address] [facility] [address], [place], [address] , [facility] 6 21:33:38 Divertic ulitis of colon 823621657 Completed 201404/02/2017 Angelo Ring MD [address] [facility] [address], [place], [address] , [facility] 7 10:20:23 Body mass index 30+ - obesity 871796085 Completed 07/06/2020 Cassia Mcpherson MA null, [facility] 0 15:05:27 Multiple joint pain 51912175 Active Not Available [facility] 3 13:43:23 Mixed anxiety and depressi ve disorder 024808304 Completed 04/02/2017 Angelo Ring MD [address] [facility] [address], [place], [address] , [facility] 7 10:20:46 Abdomina l pain 10721268 Completed 03/28/2016 Angelo Ring MD [address] [facility] [address], [place], [address] , [facility] 6 21:33:38 Divertic ular disease 834177209 Active s/p partial colectom y Not Available [facility] 3 13:43:23 Diplopia 73011865 Active Not Available [facility] 3 13:43:23 Floaters in visual field 533744807 Completed 03/28/2016 Angelo Ring MD [address] [facility] [address], [place], [address] , [facility] 6 21:33:38 Headache 48792806 Completed 04/02/2017 Angelo Ring MD [address] [facility] [address], [place], [address] , [facility] 7 10:20:58 Myasthen ia gravis 26385025 Active Not Available [facility] 3 13:43:24 Acne 34166264 Completed 04/02/2017 Angelo Ring MD [address] [facility] [address], [place], [address] , [facility] 7 10:20:27 Hypergly cemia 20100269 Completed 04/02/2017 Angelo Ring MD [address] [facility] [address], [place], [address] , [facility] 7 10:21:18 Vitiligo 82894666 Active Not Available [facility] 3 13:43:23 Autoimmu ne polyendo crinopat hy 75502712 Active Not Available [facility] 3 13:43:23 Macrocyt osis 877052486 Active 2018 Not Available [facility] 3 13:43:23 Irritabl e bowel syndrome 40268195 Active 2018 Not Available [facility] 3 13:43:23 Recurren t major depressi on in partial remissio n 59748785 Active 2018 Not Available [facility] 3 13:43:23 Essentia l hyperten lucia 15987971 Active 2019 Not Available [facility] 3 13:43:24 Anti-nuc lear factor detected 498726934 Active 2020 Not Available [facility] 3 13:43:23 Herpes zoster 2027087 Active 2020 Not Available [facility] 3 13:43:23 History of SARS-CoV -2 37911420586 1519921 Active 2021 Not Available [facility] 3 13:43:23 Tinea pedis 7802433 Active 2021 Not Available [facility] 3 13:43:24 Generali zed anxiety disorder 71154264 Active 2021 Not Available [facility] 3 13:43:23 Prediabe rema 958642242 Active 2022 Not Available [facility] 3 13:43:24 Hyperlip idemia 83229762 Active 2022 Not Available [facility] 3 13:43:23 Pain in right heel 93605848749 84554 Completed 202208/05/2023 Angelo Ring MD [address], [place], [address] , [facility] 3 13:48:40 Candidia sis of vagina 52408506 Completed 202208/05/2023 Angelo Ring MD [address], [place], [address] , [facility] 3 13:35:30 Snoring 06454305 Completed 202208/05/2023 Angelo Ring MD [address], [place], [address] , [facility] 3 13:48:55 Obstruct kathy sleep apnea of adult 95471918533 03 Active 2022 Not Available [facility] 3 13:43:23 Morbid obesity 035981782 Active 2022 Not Available [facility] 3 13:43:23 Family history of malignan t melanoma 383750113 Active 2023 Angelo Ring MD [address], [place], [address] , [facility] 4 17:18:08 Body mass index 40+ - severely obese 494500699 Active 2023 Angelo Ring MD [address] [address], [place], [address] , [facility] 4 09:39:33 Problem Notes None recorded. Procedures Surgical History Date Name Laterality Status Provider Name and Address Organization Details Recorded Time 12/22/19 24 Most Recent Mammogram completed Lizeth Herrera [facility] 12/22/2023 13:04:28 12/22/19 24 Mammogram both breasts completed Charles Jack MA [facility] 09/07/2024 09:03:27 12/20/19 23 Mammogram both breasts completed Charles Jack MA [facility] 08/05/2023 13:06:43 12/05/19 22 Mammogram Screening completed Liyah Sheikh [facility] 12/28/2021 14:01:53 03/19/20 20 Date of Last Pap Smear completed Cassia Mcpherson MA [facility] 07/06/2020 15:07:41 06/21/20 18 Cholecystectomy completed Angelo Ring MD [address] [address], [place], [address], [facility] 06/23/2018 10:10:03 12/26/19 16 Gastrointestinal Surgery completed Angelo Rnig MD [address], [address], [facility] 12/27/2015 08:41:03 03/15/20 11 Date of Last Colonoscopy completed Cassia Mcpherson MA [facility] 03/28/2016 08:32:59 03/15/20 11 Colonoscopy completed Cassia Mcpherson MA [facility] 03/28/2016 08:33:00 Dxa bone density study completed Cassia Mcpherson MA [facility] 04/02/2017 09:39:01 Imaging Results None recorded. Procedure Notes None recorded. Medical Equipment None Reported. Allergies Allergen ID Allergen Name Allergen Category Reaction Reaction Severity Criticality Documentation Date Start Date Code Code System Note Provider Name and Address Organization Details Recorded Time 85260 Substance with sulfonami de structure and antibacte rial mechanism of action (substanc e) medicatio n hives moderate Not available 12/09/20142013 09866 8003 SNOMED REACT ION: HIVES Lily [place] her [facility] 5 11:01:46 55011 acetamino phen / oxycodone medicatio n other mild Not available 12/09/2014 56929 3 RxNorm agita tion Angelo Ring MD [address], [place], [address], [facility] 5 08:52:25 38816 Dilaudid medicatio n rash mild Not available 01/03/20162015 08937 3 RxNorm hives ,rash , itchi ness, repor rafia from pt ED visit Flori Springer taina, [facility] 6 08:13:55 05162 erythromy morro medicatio n other moderate Not available 03/28/20162015 4053 RxNorm MG flare Angelo Ring MD [address], [place], [address], [facility] 6 09:06:27 31760 amoxicill in medicatio n abdominal pain severe Not available 02/01/20192018 723 RxNorm Iris PatireCASEY, [facility] 9 09:36:51 08951 Bactrim medicatio n Not available Not available Not available 02/28/2020 98265 9 RxNorm Gita Money taina [facility] 0 10:20:34 97030 cephalexi n medicatio n rash moderate Not available 12/24/2022 2231 RxNorm KAYLI Hollingsworth, [facility] 3 14:38:30 56706 bupropion Not available other mild Not available 12/24/2022 41958 RxNorm eleva rafia BP Not Available [facility] 3 17:58:18 4228 clindamyc in hydrochlo ride medicatio n hives moderate Not available 05/31/20142013 94090 RxNorm Cassialakisha Mcpherson MA null, [facility] 6 08:28:39 4229 Paxil medicatio n Not available Not available Not available 05/31/20142013 68810 8 RxNorm REACT ION: ECCHY SIMON Ring MD [address] [facility] [address], [facility] [place], [address], [facility] 7 10:12:34 Medications Name Sig Start Date Stop Date Status Note LastModified by Organization Details LastModified Time metronida zole 500 mg tabs active Not Available Not Available Not Available levofloxa morro 500 mg tabs active Not Available Not Available Not Available fluconazo le 150 mg tabs active Not Available Not Available Not Available naltrexon e 3mg caps. 06/28 completed Not Available Not Available Not Available pyridosti gmine bromide 60 mg tabs 1/2 tab 3-5 times daily as needed 04/03 completed Not Available Not Available Not Available hydrocodo ne/acetam inophen 5-325 mgtabs active Not Available Not Available Not Available peg-3350/ nacl/na bicarbona te/kcl 420 gm solr active Not Available Not Available Not Available levothyro xine sodium 75 mcg tabs active Not Available Not Available Not Available cefuroxim e axetil 250 mg tabs active Not Available Not Available Not Available amoxicill in 500 mg capsule 01/04 completed Not Available Not Available Not Available Mirena 21 mcg/24 hr (up to 8 years) 52 mg intrauter ine device 04/03 completed Not Available Not Available Not Available dicloxaci llin 500 mg capsule TAKE 1 CAPSULE BY MOUTH TWICE A DAY 07/15 completed Not Available Not Available Not Available doxycycli ne hyclate 100 mg capsule Take 1 capsule twice a day by oral route for 10 days. active Not Available Not Available No t Available tizanidin e 2 mg tablet active Not Available Not Available Not Available cetirizin e 10 mg tablet DAILY 11/02 completed RECORDED 11/04/20 12 2:36PM BY DENISSE WHITING, MEDICATI ON AUTO-JANET CTIVATIO N; Not Available Not Available Not Available alprazola m 1 mg tablet TAKE 1 TABLET BY MOUTH EVERY DAY A SINGLE DOSE 07/15 completed Not Available Not Available Not Available ofloxacin 0.3 % eye drops INSTILL 1 DROP INTO AFFECTED EYE(S) BY OPHTHALM IC ROUTE 4 TIMES PER DAY 04/02 completed Not Available Not Available Not Available fluconazo le 150 mg tablet TAKE 1 TABLET BY MOUTH EVERY 72 HOURS DIRECTED FOR 2 DAYS 06/13 completed Not Available Not Available Not Available methylphe nidate 10 mg tablet TAKE 1 TABLET BY MOUTH TWICE A DAY NEEDED FOR 14 DAYS 02/07 completed Not Available Not Available Not Available valacyclo vir 1 gram tablet TAKE 1 TABLET BY MOUTH THREE TIMES A DAY FOR 7 DAYS 02/25 completed Not Available Not Available Not Available fluconazo le 200 mg tablet Take 1 tablet as needed by oral route for 21 days. 04/03 completed Not Available Not Available Not Available lisinopri l 20 mg tablet TAKE 1 TABLET BY MOUTH EVERY DAY active Not Available Not Available No t Available prednison e 20 mg tablet DAILY 11/04 completed RECORDED 11/04/20 12 2:36PM BY DENISSE WHITING, MEDICATI ON AUTO-JANET CTIVATIO N; Not Available Not Available Not Available terconazo le 0.8 % vaginal cream 04/02 completed Not Available Not Available Not Available metronida zole 500 mg tablet Take 1 tablet every 8 hours by oral route for 7 days. 2014 active Not Available Not Available Not Avai lable Tamiflu 75 mg capsule Take 1 capsule twice a day by oral route. 07/06 completed Not Available Not Available Not Available liothyron ine 5 mcg tablet TAKE 1 TABLET BY MOUTH TWICE A DAY active Not Available Not Available No t Available triamcino lone acetonide 0.1 % topical cream APPLY A THIN LAYER TO THE AFFECTED AREAS TOPICALL Y TWICE DAILY FOR 10-14 DAYS. 06/13 completed Not Available Not Available Not Available amoxicill in 500 mg tablet Take 2 tablets every day by oral route for 10 days. 03/30 completed Not Available Not Available Not Available levothyro xine 75 mcg tablet TAKE 1 TABLET BY MOUTH EVERY MORNING active Not Available Not Available No t Available mycopheno late mofetil 500 mg tablet TAKE 1 TABLET BY MOUTH TWICE A DAY FOR 30 DAYS active Not Available Not Available No t Available adapalene 0.1 % topical cream 04/02 completed Not Available Not Available Not Available levothyro xine 88 mcg tablet Take 1 tablet every day by oral route as directed for 30 days. 04/03 completed Not Available Not Available Not Available benzonata te 100 mg capsule TAKE 1 CAPSULE BY MOUTH 3 TIMES A DAY NEEDED 07/15 completed Not Available Not Available Not Available econazole 1 % topical cream APPLY TWICE DAILY TO AFFECTED TOES/WEB SPACES UNTIL RESOLVED . REPEAT NEEDED FOR RECURREN CE. active Not Available Not Available No t Available cephalexi n 500 mg capsule Take 1 capsule 3 times a day by oral route as directed for 7 days. 12/24 completed Not Available Not Available Not Available clotrimaz ole-betam ethasone 1 %-0.05 % topical cream 04/02 completed Not Available Not Available Not Available pyridosti gmine bromide 60 mg tablet 1 TABLET NEEDED active Not Available Not Available No t Available lisinopri l 10 mg tablet TAKE 1 TABLET BY MOUTH EVERY DAY 03/08 completed Not Available Not Available Not Available lidocaine 5 % topical patch Apply 1 package every day by topical route as directed for 10 days. 04/06 completed Not Available Not Available Not Available bupropion HCl 75 mg tablet TAKE 1 TABLET BY MOUTH TWICE A DAY DIRECTED 10/13 completed Not Available Not Available Not Available indapamid e 1.25 mg tablet Take 1 tablet every day by oral route. 06/29 completed Not Available Not Available Not Available pyridosti gmine bromide ER 180 mg tablet,ex tended release TAKE 1 TABLET BY MOUTH TWICE A DAY 6 HOURS APART active Not Available Not Available No t Available zinc 50 mg tablet Take 1 tablet every day by oral route. 04/03 completed Not Available Not Available Not Available ranitidin e 150 mg capsule TWO TIMES DAILY 11/02 completed RECORDED 11/04/20 12 2:36PM BY DENISSE WHITING, MEDICATI ON AUTO-JANET CTIVATIO N; Not Available Not Available Not Available lisinopri l 10 mg-hydroc hlorothia zide 12.5 mg tablet Take 1 tablet every day by oral route. 06/29 completed Not Available Not Available Not Available levofloxa morro 500 mg tablet Take 1 tablet every 24 hours by oral route for 7 days. 2014 active Not Available Not Available Not Avai lable levofloxa morro 750 mg tablet TAKE 1 TABLET BY MOUTH EVERY DAY active Not Available Not Available No t Available albuterol sulfate HFA 90 mcg/actua tion aerosol inhaler INHALE 2 PUFFS EVERY 4 HOURS NEEDED FOR 14 DAYS active Not Available Not Available No t Available ketoconaz ole 2 % topical cream APPLY TOPICALL Y TO THE AFFECTED AREA EVERY DAY 02/07 completed Not Available Not Available Not Available ondansetr on 4 mg disintegr ating tablet Place 1 tablet twice a day by translin gual route as needed for 3 days. 2014 active Not Available Not Available Not Avai lable mometason e 0.1 % topical cream APPLY SPARINGL Y TO AFFECTED AREA EVERY DAY 12/24 completed Not Available Not Available Not Available amoxicill in 875 mg-potass ium clavulana te 125 mg tablet TWO TIMES DAILY 03/06 completed RECORDED 03/09/20 14 10:05AM BY CALEB HENRY MA, MEDICATI ON AUTO-JANET CTIVATIO N; Not Available Not Available Not Available amoxicill in 500 mg-potass ium clavulana te 125 mg tablet 01/14 completed Not Available Not Available Not Available bacitraci n-polymyx in B 500 unit-10,0 00 unit/gram eye ointment 01/14 completed Not Available Not Available Not Available erythromy morro with ethanol 2 % topical gel active MG exacerba tion Not Available Not Available Not Available escitalop daniella 10 mg tablet TAKE 1 TABLET BY MOUTH EVERY DAY active Not Available Not Available No t Available atomoxeti ne 40 mg capsule TAKE 1 CAPSULE BY MOUTH EVERY DAY active Not Available Not Available No t Available Vitamin D3 25 mcg (1,000 unit) tablet 1 tablet every day by oral route. 2018 active Not Available Not Available Not Avai lable codeine-g uaifenesi n oral syrup Q 4 HOURS PRN 03/11 completed RECORDED 03/11/20 14 9:03AM BY CHARLES PATHAK PA-C, MEDICATI ON AUTO-JANET CTIVATIO N; Not Available Not Available Not Available bupropion HCl XL 300 mg 24 hr tablet, extended release TAKE 1 TABLET BY MOUTH EVERY DAY 12/24 completed Not Available Not Available Not Available bupropion HCl XL 150 mg 24 hr tablet, extended release Take 1 tablet every day by oral route for 30 days. 09/12 completed Not Available Not Available Not Available escitalop daniella 5 mg tablet TAKE 1 TABLET BY MOUTH EVERY DAY 09/22 completed Not Available Not Available Not Available EpiPen 0.3 mg/0.3 mL injection , auto-inje ctor INJECT AT ONSET ANAPHYLA XIS 04/02 completed Not Available Not Available Not Available iron 1 daily active Not Available Not Avail able Not Available naltrexon e 3 mcg daily orally 02/23 completed Not Available Not Available Not Available Iron (ferrous sulfate) 1 tab daily orally 04/02 completed Not Available Not Available Not Available Multivita min With Minerals 1 tablet po daily active Not Available Not Available No t Available cholecalc iferol (vitamin D3) 50 mcg (2,000 unit) capsule Take 1 capsule every day by oral route as directed . 03/30 completed Not Available Not Available Not Available glucos 375 mg-msm 375 mg-collag n2-hyalur on 20 mg-antiar thritic3 tablet Take 2 tablets every day by oral route. active Not Available Not Available No t Available Lo Loestrin Fe 1 mg-10 mcg (24)/10 mcg (2) tablet TAKE 1 TABLET BY MOUTH EVERY DAY 02/22 completed Not Available Not Available Not Available morphine ER 30 mg-naltre xone 1.2 mg capsule, extend release, oral only Take 1 capsule every 24 hours by oral route as directed . 04/02 completed Not Available Not Available Not Available Flonase Allergy Relief 50 mcg/actua tion nasal spray,[employer] [place] 1 spray every day by intranas al route. active Not Available Not Available No t Available bupropion HCl 150 mg tablet,12 hr sustained -release( smoking deterrent ) Take 1 tablet every day by oral route. 07/06 completed Not Available Not Available Not Available Ozempic 0.25 mg or 0.5 mg (2 mg/1.5 mL) subcutane ous pen injector Inject 0.25 mg every week by subcutan eous route for 28 days. 06/13 completed Not Available Not Available Not Available Ozempic 1 mg/dose (4 mg/3 mL) subcutane ous pen injector Inject 1 mg every week by sub-q route for 28 days. 07/08 completed Not Available Not Available Not Available BinaxNOW COVID-19 Ag Self Test kit FOLLOW INSTRUCT IONS INCLUDED WITH THE PACKAGE. 01/16 completed Not Available Not Available Not Available Paxlovid 300 mg (150 mg x 2)-100 mg tablets in a dose pack TAKE 2 TABLETS (NIRMATR STEPHEN) AND TAKE 1 TABLET (RITONAV IR) BY MOUTH TWICE A DAY FOR 5 DAYS 08/05 completed Not Available Not Available Not Available Ozempic 2 mg/dose (8 mg/3 mL) subcutane ous pen injector INJECT 2MG SUBCUTAN EOUSLY WEEKLY FOR 28 DAYS 09/22 completed diarrhea and daily nausea Not Available Not Available Not Available Ozempic 0.25 mg or 0.5 mg (2 mg/3 mL) subcutane ous pen injector INJECT 0.5 MG SUBCUTAN EOUSLY EVERY WEEK FOR 30 DAYS. 04/06 completed Not Available Not Available Not Available Zepbound 5 mg/0.5 mL subcutane ous pen injector INJECT 5 MG SUBCUTAN EOUSLY WEEKLY FOR 28 DAYS 10/22 completed Not Available Not Available Not Available Zepbound 2.5 mg/0.5 mL subcutane ous pen injector INJECT 2.5 MG SUBCUTAN EOUSLY WEEKLY FOR 28 DAYS PA DENIED 09/07 completed Not Available Not Available Not Available Zepbound 7.5 mg/0.5 mL subcutane ous pen injector Inject 7.5 mg every week by subcutan eous route for 28 days. 2023 active Not Available Not Available Not Avai lable Vitals Date Recorded Body height Body mass index (BMI) Body weight Heart rate Oxygen saturation Oxygen saturation in Arterial blood by Pulse oximetry Body temperature Systolic blood pressure Diastolic blood pressure Provider Name and Address Organization Details Last Updated DateTime 4 156.85 cm 50.8 kg/m2 194260 g 99 /min 96 % 96 % 98.1 [degF] 118 mm[Hg] 81 mm[Hg] Charles Jack MA [facility] 4 09:00:49 Social History Question Answer Notes LastModified by Organizat ion Details LastModified Time Tobacco Smoking Status Never Smoker Not Available [facility]/2020 03:36:39 Do You Have An Advance Directive? Yes HCP -Jacklyn, Kaela/Mauro Information not available 06/13/2023 What Is Your Level Of Alcohol Consumption? Occasional Information not available 08/05/2023 Is Blood Transfusion Acceptable In An Emergency? Yes [id number] Information not available 09/19/2020 What Is Your Level Of Caffeine Consumption? Moderate Coffee [id number] Information not available 09/19/2020 How Much Tobacco Do You Chew? None [id number] Information not available 09/19/2020 Are You Currently Employed? Yes [employer] [id number] Information not available 09/19/2020 What Type Of Diet Are You Following? REGULAR Information not available 07/15/2022 Which Illicit Or Recreational Drugs Have You Used? None [id number] Information not available 09/19/2020 Do You Or Have You Ever Used E-cigarettes Or Vape? 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 With Others 3 Partners (Jacklyn, Kaela, Mauro), 3 Children, 2 Cats, 1 Dog Information not available 06/13/2023 Do You Take Precautions To Prevent Distracted Driving? Yes Information not available 10/20/2015 How Often Do You Need To Have Someone Help You When You Read Instructions, Pamphlets, Or Other Written Material From Your Doctor Or Pharmacy? Never Information not available 10/20/2015 Have You Served In The ? No Information not available 04/02/2017 Have You Or Anyone In Your Household Had Any Of The Following Symptoms In The Last 14 Days: Sore Throat, Cough, Chills, Body Aches For Unknown Reasons, Shortness Of Breath For Unknown Reasons, Loss Of Smell, Loss Of Taste, Fever At Or Greater Than 100 Degrees Fahrenheit? No Information not available 06/28/2020 Are You Or Anyone In Your Household A Health Care Provider Or Emergency Responder? No Information not available 06/28/2020 To The Best Of Your Knowledge Have You Been In Close Proximity To Any Individual Who Tested Positive For COVID-19? No [email or web address] Information not available 06/28/2020 *AWV ONLY* Are You Presently Prescribed Opioid Medication By PCP Or Specialist? If YES -Provider Assess The Benefit For Other, Non-opioid Pain Therapies Instead, Even If The Patient Does Not Have OUD But Is Possibly At Risk. No Information not available 07/06/2020 Have You Recently Traveled To A COVID-19 High Risk Area Or Gathering In The Last 10 Days? No Information not available 02/23/2021 What Was The Date Of Your Most Recent Tobacco Screening? 09/07/2024 Information not available 09/07/2024 How Many Children Do You Have? 3 [id number] Information not available 09/19/2020 Do You Use Protection During Sex? No Information not available 07/08/2024 Do You Use Your Seat Belt Or Car Seat Routinely? Yes Information not available 07/15/2022 Seat Belts Used Routinely Yes Information not available 06/13/2023 Are You Sexually Active? Yes [id number] Information not available 09/19/2020 Smoke Alarm In Home Yes Information not available 06/13/2023 Do You Have Smoke And Carbon Monoxide Detectors In Your Home? Yes Information not available 07/15/2022 At What Age Did You Start Smoking Tobacco? 1 [id number] Information not available 09/19/2020 Are You Passively Exposed To Smoke? No Information not available 03/17/2015 Do You Or Have You Ever Used Smokeless Tobacco? Never Used Smokeless Tobacco [id number] Information not available 09/19/2020 How Much Tobacco Do You Smoke? No [id number] Information not available 09/19/2020 Do You Use Any Illicit Or Recreational Drugs? No Information not available 06/13/2023 Do You Use Sunscreen Routinely? Yes [id number] Information not available 09/19/2020 How Many Years Have You Smoked Tobacco? 0 [id number] Information not available 09/19/2020 Do You Or Have You Ever Used Any Other Forms Of Tobacco Or Nicotine? No Information not available 06/13/2023 Sex: Unknown Functional Status Question Answer Note LastModified by Organizat ion Details LastModified Time Are you able to walk? YESWOREST Information not available 06/13/2023 Are you able to care for yourself? Yes [id number] Information not available 09/19/2020 What is your exercise level? Occasional Information not available 07/08/2024 Mental Status None recorded. Family History Relationship Description Onset Age of this Age Resolved Age Notes LastModified by Organization Details LastModified Time Father Alcohol abuse awychowski Not available 03/28 09:07:20 Father Asthma awychowski Not available 03/28/2016 09:07:20 Father Malignant neoplastic disease melano ma Not available 07/08/2024 12:34:29 Father Diabetes mellitus 40 [email or web address] Not available 11:29:04 Father Hypercholest erolemia awychowski Not available 03/28 09:07:20 Father Hypertensive disorder awychowski Not available 03/28 09:07:20 Father Minh thyroiditis Not available 06/18 12:34:29 Father Disorder of thyroid gland [email or web address] Not available 11:29:04 Father Sleep disorder 50 [email or web address] Not available 11:29:04 Father Obesity 40 [email or web address] Not avail able 04/01/2023 11:29:04 Mother Hypercholest erolemia Not available 2021 10:59:46 Mother Hypertensive disorder awychowski Not available 03/28 09:07:20 Mother Diabetes mellitus 40 [email or web address] Not available 11:29:04 Mother Obesity 40 [email or web address] Not avail able 04/01/2023 11:29:04 Brother Well adult Not availabl e 07/08/2024 12:34:29 Medical History Condition Response Other N Gout N Blood Diseases N Kidney Stones N Hyperthyroidism N Breast Cancer N Hypothyroidism Y Lung Disease N Depression Y COPD N Defects or Inherited Disease N Anesthesia Complications N Headaches/Migraines N Varicose Veins N Anxiety Disorder Y Obesity Y Vision or Eye Problems Y Arthritis N Head Injury/Concussion N Infertility N Polyps N Congenital Anomalies N Acid Reflux (GERD) N Cancer N Stroke N ADHD N Endometriosis N High Cholesterol N Liver Disease N Fibromyalgia N Kidney Disease N Heart Problems N Ear or Hearing Problems N Hospitalizations N Thyroid Problems Y GI Problems Y Acne N Eating Disorder N Skin Problems N Anemia N Constipation N Bladder Problems N Mental Illness N Diabetes N Ovarian Cancer N Blood Transfusions N Seizures/Epilepsy N Tuberculosis N AIDS/HIV N Congestive Heart Failure (CHF) N Eczema N Abuse/Domestic Violence N Diverticulitis Y Asthma N Allergies N Reflux/GERD N Hepatitis N Pulmonary Embolism N Hypertension N Chicken Pox N Autism Spectrum Disorder (ASD) N Osteoporosis N Gynecological History Statement/Question Response Date of Last Pap Smear 03/19/2020 Date of Last Colonoscopy 03/15/2011 Most Recent Mammogram 12/22/2023 Most Recent Bone Density Obstetrics History GPAL:G 0 P 0 0 0 0 Immunizations Vaccine Type Date Status Note Provider Nam e and Address Organization Details Recorded Time COVID-19, mRNA, LNP-S, PF, 30 mcg/0.3 mL dose 1 completed Lizeth her [facility] 09/29/2023 09:57:53 COVID-19, mRNA, LNP-S, PF, 30 mcg/0.3 mL dose 1 completed Lizeth her [facility] 09/29/2023 09:57:53 COVID-19, mRNA, LNP-S, PF, 30 mcg/0.3 mL dose 1 completed Lizeth L Herrera null, [facility] 09/29/2023 09:57:53 COVID-19, mRNA, LNP-S, PF, 30 mcg/0.3 mL dose 1 completed Lizeth L Herrera null, [facility] 09/29/2023 09:57:53 Influenza, MDCK, quadrivalent, PF 1 completed Lizeth L Herrera null, [facility] 09/29/2023 09:57:53 Tdap 9 completed Lizeth L Herrera null, [facility] 09/29/2023 09:57:53 Influenza, split virus, quadrivalent, PF 8 completed Lizeth L Herrera null, [facility] 09/29/2023 09:57:53 Influenza, split virus, quadrivalent, PF 0 completed Lizeth L Herrera null, [facility] 09/29/2023 09:57:53 COVID-19, mRNA, LNP-S, PF, 100 mcg/0.5mL dose or 50 mcg/0.25mL dose 2 completed Lizeth L Herrera null, [facility] 09/29/2023 09:57:53 Influenza, split virus, quadrivalent, PF 6 completed Lizeth L Herrera null, [facility] 09/29/2023 09:57:53 Influenza, split virus, quadrivalent, PF 9 completed Lizeth L Herrera null, [facility] 09/29/2023 09:57:53 Influenza, MDCK, quadrivalent, PF 2 completed Lizeth L Herrera null, [facility] 09/29/2023 09:57:53 COVID-19, mRNA, LNP-S, bivalent, PF, 50 mcg/0.5 mL or 25mcg/0.25 mL dose 2 completed Lizeth her, [facility] 09/29/2023 09:57:53 COVID-19, mRNA, LNP-S, PF, 50 mcg/0.5 mL 3 completed Lizeth her, [facility] 09/29/2023 09:57:53 Influenza, MDCK, trivalent, PF 4 completed KAYLI Hollingsworth, [facility] 09/07/2024 08:52:06 COVID-19, mRNA, LNP-S, PF, mina-sucrose, 30 mcg/0.3 mL 4 completed KAYLI Hollingsworth, [facility] 09/07/2024 08:52:06 Tdap 9 completed Lizeth her [facility] 09/29/2023 09:57:53 influenza, seasonal, intradermal, preservative free 3 completed Lizeth her, [facility] 09/29/2023 09:57:53 Influenza, split virus, quadrivalent, PF 3 completed Angelo Ring MD [address], [address], [facility] 08/05/2023 13:57:35 Past Encounters Encounter ID Performer Location Encounter Start Date Encounter Closed Date Diagnosis/Indication Diagnosis SNOMED-CT Code Diagnosis ICD10 Code [id number] Lorenza cross [place] Main Office [address] [facility] [address] [place] [address] 09/07/2024 08:48:57 09/07/2024 09:51:38 Adult health examination 523398170 Z00.00 Screening for malignant neoplasm of cervix 885541192 Z12.4 Screening for malignant neoplasm of breast 677859048 Z12.39 Body mass index 40+ - severely obese 059003553 E66.01 Z68.43 Needs infl uenza immunization 652777528 Z23 Recurrent major depression in partial remission 16985900 F33.41 Impaired f asting glycemia 536600193 R73.01 Essential hypertension 42617048 I10 Hypercholesterolemia 136 48494 E78.01 Vitamin D deficiency 347 55684 E55.9 Minh thyroiditis 21 613441 E06.3 Myasthenia gravis 128478 04 G70.00 Prediabetes 665131292 R7 3.03 Obstructiv e sleep apnea of adult 8025073122 103 G47.33 Screening for malignant neoplasm of colon 760452044 Z12.11 Health Concerns Section Related Observation LastModified by Organization Detai ls LastModified Time None Recorded Concern Status LastModified by Organization Details LastModified Time None Recorded Payers Encounter Date Sequence Insurance Name Policy Number Policy Quick Covered Member ID Quick Member ID Guarantor Name 09/07/2024 1 [facility] [id number] Joanna Elise [id number] Joanna Elise Notes Date Note Type Note Provider Name and Address Organization Details Recorded Time 09/07/2024 text/html Generic HPI TemplateReported bypatient.Notes:Here for physical, Feels well on tirzapatide for 5 weeks. . Seeing dentist and ophtho regularly. KAYLI Llamas [place] - [facility] 09/07/2024 13:37:21 OBGyn Episode No OBEpisode recorded.
--- OUTSIDE RECORDS SUMMARY | 2024-10-29 13:02 | XMS_ITS | Data Portability ---
Author Organization [facility], Main Office Address [address] [place] [address] Care Team Providers Care Pediatric Geneticist Name Role Phone ANGELO RING Primary Care Provider SVITLANA RUBIN OTHER AIYANA OBREGON Neurologist [facility] Gymnastic Coach [phone] [facility] SCHEDULING DEPT Mixing Operator [facility] Electric Power Superintendent Assessment Encounter Date Assessment Date Assessment LastModified by Organization Details LastModified Time 10/27/2023 10/27/2023 Discussed with patient the signs/symptom s warranted for a return to office visit and/or an ER visit. Patient understood and agreed with the plan. [email or web address] Not available 10/27/2023 10:57:47 Plan of Treatment Reminders Order Date Submit Date Provider Last Modified By Organization Details Last Modified Time Details Appointments FOLLOW UP 1 2024 10:45A M Angelo Ring MD Not available Not available Not available Lab unlist ed lab - urinal ysis w/refl ex cultur e 2023 024 [facility], [address] [facility], [place], [address], 12/04/2023 15:54:43 unlist ed lab - TSH reflex to t4f 2023 024 [facility], [address], [place], [address], 07/09/2024 12:06:19 thyrop eroxid ase Ab, serum 2023 024 [facility], [address] [facility] [address], [place], [address], 07/09/2024 12:06:20 T3, free, serum or plasma 2023 024 [facility], [address] , [facility] [address], [place], [address], 07/09/2024 12:06:20 HbA1c (hemog lobin A1c), blood 2023 024 [facility], [address] [facility], [facility] [address], [place], [address], 07/09/2024 12:06:18 CMP, serum or plasma 2023 024 [facility], [address] [facility], [facility] [address], [place], [address], 07/09/2024 12:06:15 urinal ysis, comple te 2023 024 [facility], [address] [facility], [facility] [address], [place], [address], 07/09/2024 12:06:17 lipid panel, serum 2023 024 [facility], [address] [facility], [facility] [address], [place], [address], 07/09/2024 12:06:18 CMP, serum or plasma 2023 024 [facility], [address], [facility] [address], [place], [address], 09/20/2024 13:43:27 LDL, direct , serum 2023 024 [facility], [address] , [facility] [address], [place], [address], 09/07/2024 09:47:00 HbA1c (hemog lobin A1c), blood 2023 024 [facility], [address], [address], [place], [address], 09/07/2024 09:47:01 T3, free, serum or plasma 2023 024 R[facility], [address] [place] [address], [place], [address], 09/07/2024 09:47:00 unlist ed lab - TSH reflex to t4f 2023 RICK [facility], [address] , [facility] [address], [place], [address], 09/07/2024 09:47:01 urinal ysis, comple te 2023 024 [facility], [address], [address], [place], [address], 09/07/2024 09:46:59 Referral occupa tional therap ist referr al - for assist ance with global weakne ss/ADL s and impair ed functi on second rigo to mysandra enia gravis . 2023 024 [email or web address] [place], [address], [place], [address], 10/04/2024 09:46:13 physic al therap ist referr al - for assist ance with global weakne ss/ADL s and impair ed functi on second rigo to mysandra enia gravis . 2023 024 [facility] [place], [address], [place], [address], 05/06/2024 15:34:45 nutrit ionist /dieti jocelin referr al 2023 024 [facility], [address] [place], [address], 07/14/2024 10:04:01 gyneco logist referr oseas - Ravi harvey to willyu le 2023 024 Not available 09/07/2024 09:51:38 gastro entero logist referr oseas - Michelle colon cancer screen ing 2023 024 Moe Bowen MD, [address] [place], [address], 10/11/2024 09:28:36 Procedures colono scopy screen ing (PROC) 2023 024 [facility], [address] [place] [address], [address], 09/07/2024 11:05:37 Surgeries None record ed. Imaging XR, chest, 2 view - produc tive cough x1 week with SOB and mild wheezi ng- rule in/out any pneumo earl 2022 023 [facility], [address] [place] [address], [address], 10/27/2023 12:01:14 XR, ribs, unilat eral, w/ PA chest - rule out right sided rib fractu re/PNA 2023 024 [facility], [address] [place] [address], [address], 12/04/2023 17:27:48 MAMMO, screen ing, bilate ral - Perfor m Diagno stic Mammog daniella and Breast Ultras ound if needed / Perfor m Ultras ound Guided Aspira tion and/or Breast Biopsy if warran rafia 2023 024 [facility], [address] [place] [address], [address], 09/07/2024 09:51:38 Medication Orders albute rol sulfat e HFA 90 mcg/ac tuatio n aeroso l inhale r 2022 023 [email or web address] [facility], [phone] [place], [address], 10/27/2023 11:37:38 tizani dine 2 mg tablet 2023 024 [facility] [phone] [place] [address], [address], 04/06/2024 12:53:19 lidoca ine 5 % topica l patch 2023 024 [facility], [phone] [place] [address], [address], 04/06/2024 12:52:41 Ozempi c 1 mg/dos e (4 mg/3 mL) subcut aneous pen inject or 2023 024 [facility], [phone] [place], [address], 07/08/2024 12:49:57 Zepbou nd 2.5 mg/0.5 mL subcut aneous pen inject or 2023 024 [facility], [phone] [place], [address], 09/07/2024 09:25:20 Zepbou nd 5 mg/0.5 mL subcut aneous pen inject or 2023 024 [facility], [phone] [place] [address], [address], 10/22/2024 15:00:19 Patient TargetsNo targets recorded. Patient Instructions Encounter Date Encounter Id Patient Instructions Last Modified By Organization Details Last Modified Time 10/27/2023 [id number] Chart reviewed, agree with above assessment and plan. suzy Not available 10/28/2023 13:41:47 12/04/2023 [id number] bladder training: care instructions suzy Not available 12/04/2023 15:54:33 kegel exercises: care instructions awychowski Not available 12/04/2023 15:55:21 depression treatment: care instructions awychowski Not available 12/04/2023 15:54:33 anxiety disorder: care instructions awychowski Not available 12/04/2023 15:54:33 When You Want to Lose Weight: Care Instructions awychowski Not available 12/04/2023 15:54:33 04/06/2024 [id number] myasthenia gravis: care instructions awychowski Not available 04/06/2024 13:21:10 anxiety disorder: care instructions awychowski Not available 04/06/2024 13:21:09 07/08/2024 [id number] starting a weight loss plan: care instructions awychowski Not available 07/08/2024 13:21:23 Nutrition Referral and Weight Management Follow-up Information awychowski Not available 07/08/2024 13:21:23 myasthenia gravis: care instructions awychowski Not available 07/08/2024 13:21:22 high blood pressure: care instructions awychowski Not available 07/08/2024 13:21:23 learning about high blood pressure awychowski Not available 07/08/2024 13:21:23 When You Want to Lose Weight: Care Instructions awychowski Not available 07/08/2024 13:21:23 09/07/2024 [id number] depression treatment: care instructions awychowski Not available [...] 09/07/2024 09:46:41 learning about high blood pressure suzy Not available 09/07/2024 09:46:40 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 Occupational Therapist Refer ral for Myasthenia gravis for assistance with global weakness/ADLs and impaired function secondary to myesthenia gravis. Referring Physician: Family Celeste Murillo, Encounter Date: 04/06/2024 Physical Therapist Referral for Myasthenia gravis for assistance with global weakness/ADLs and impaired function secondary to myesthenia gravis. Referring Physician: Family Celeste Murillo, Encounter Date: 04/06/2024 Community Midwife/dietitian Refer ral for Body mass index 40+ - severely obese Referring Physician: Family Celeste Murillo, Encounter Date: 07/08/2024 Mixing Operator Referral for Sc reening for malignant neoplasm of cervix Patient to schedule Referring Physician: Family Celeste Murillo, Encounter Date: 09/07/2024 Hand Stoner Referral for Screening for malignant neoplasm of colon Needs colon cancer screening Referring Physician: Family Celeste Murillo, Encounter Date: 09/07/2024 Results Created Date Observation Date Name Description Value Unit Range Abnormal Flag Note LastModifiedBy Organization Detail LastModifiedTime 07/08/20 24 07/09/2024 COMP. METAB OLIC PANEL (14) glucose 125 mg/dL 70-99 above high normal Not Available [facility] ([facility]) [address] [place], [address], 07/09/2024 12:06:15 07/08/20 24 07/09/2024 COMP. METAB OLIC PANEL (14) BUN 10 mg/dL 6-24 normal Not Available [facility] ([facility]) [address] [place], [address], 07/09/2024 12:06:15 07/08/20 24 07/09/2024 COMP. METAB OLIC PANEL (14) creatinine 0.62 mg/dL 0.57-1 .00 normal Not Available [facility] ([facility]) [address], [place], [address], 07/09/2024 12:06:15 07/08/20 24 07/09/2024 COMP. METAB OLIC PANEL (14) eGFR 112 mL/mi n/1.7 3 >59 normal Not Available [facility] ([facility]) [address], [place], [address], 07/09/2024 12:06:15 07/08/20 24 07/09/2024 COMP. METAB OLIC PANEL (14) BUN/creatini ne ratio 16 9-23 normal Not Available [facility] ([facility]) [address], [place], [address], 07/09/2024 12:06:15 07/08/20 24 07/09/2024 COMP. METAB OLIC PANEL (14) sodium 140 mmol/ L 134-14 4 normal Not Available [facility] ([facility]) [address], [place], [address], 07/09/2024 12:06:15 07/08/20 24 07/09/2024 COMP. METAB OLIC PANEL (14) potassium 4.4 mmol/ L 3.5-5. 2 normal Not Available [facility] ([facility]) [address], [address], 07/09/2024 12:06:15 07/08/20 24 07/09/2024 COMP. METAB OLIC PANEL (14) chloride 103 mmol/ L 96-106 normal Not Available [facility] ([facility]) [address], [address], 07/09/2024 12:06:15 07/08/20 24 07/09/2024 COMP. METAB OLIC PANEL (14) carbon dioxide, total 20 mmol/ L 20-29 normal Not Available [facility] ([facility]) [address] [place], [address], 07/09/2024 12:06:15 07/08/20 24 07/09/2024 COMP. METAB OLIC PANEL (14) calcium 9.5 mg/dL 8.7-10 .2 normal Not Available [facility] ([facility]) [address] [place], [address], 07/09/2024 12:06:15 07/08/20 24 07/09/2024 COMP. METAB OLIC PANEL (14) protein, total 6.9 g/dL 6.0-8. 5 normal Not Available [facility] ([facility]) [address] [place], [address], 07/09/2024 12:06:15 07/08/20 24 07/09/2024 COMP. METAB OLIC PANEL (14) albumin 4.6 g/dL 3.9-4. 9 normal Not Available [facility] ([facility]) [address] [place], [address], 07/09/2024 12:06:15 07/08/20 24 07/09/2024 COMP. METAB OLIC PANEL (14) globulin, total 2.3 g/dL 1.5-4. 5 Not Available [facility] ([facility]) [address] [place], [address], 07/09/2024 12:06:15 07/08/20 24 07/09/2024 COMP. METAB OLIC PANEL (14) bilirubin, total <0.2 mg/dL 0.0-1. 2 Not Available [facility] ([facility]) [address] [place], [address], 07/09/2024 12:06:15 07/08/20 24 07/09/2024 COMP. METAB OLIC PANEL (14) alkaline phosphatase 79 IU/L 44-121 normal Not Available [facility]) [address] [place], [address], 07/09/2024 12:06:15 07/08/20 24 07/09/2024 COMP. METAB OLIC PANEL (14) AST (SGOT) 28 IU/L 0-40 normal Not Available [facility] ([facility]) [address] [place], [address], 07/09/2024 12:06:15 07/08/20 24 07/09/2024 COMP. METAB OLIC PANEL (14) ALT (SGPT) 45 IU/L 0-32 above high normal Not Available [facility] ([facility]) [address], [place], [address], 07/09/2024 12:06:15 07/08/20 24 07/09/2024 URINA LYSIS , COMPL ETE specific gravity 1.017 1.005- 1.030 normal Not Available [facility] ([facility]) [address], [place], [address], 07/09/2024 12:06:17 07/08/20 24 07/09/2024 URINA LYSIS , COMPL ETE pH 5.5 5.0-7. 5 normal Not Available [facility] ([facility]) [address] [place], [address], 07/09/2024 12:06:17 07/08/20 24 07/09/2024 URINA LYSIS , COMPL ETE urine-color Yellow yellow Not Available [facility]) [address] [place], [address], 07/09/2024 12:06:17 07/08/20 24 07/09/2024 URINA LYSIS , COMPL ETE appearance Clear clear Not Available [facility] ([facility]) [address] [place], [address], 07/09/2024 12:06:17 07/08/20 24 07/09/2024 URINA LYSIS , COMPL ETE WBC esterase 1+ negati ve abnormal Not Available [facility] ([facility]) [address], [place], [address], 07/09/2024 12:06:17 07/08/20 24 07/09/2024 URINA LYSIS , COMPL ETE protein Negati ve negati ve/tra ce Not Available [facility] ([facility]) [address], [place], [address], 07/09/2024 12:06:17 07/08/20 24 07/09/2024 URINA LYSIS , COMPL ETE glucose Negati ve negati ve Not Available [facility] ([facility]) [address] [place], [address], 07/09/2024 12:06:17 07/08/20 24 07/09/2024 URINA LYSIS , COMPL ETE ketones Negati ve negati ve Not Available [facility] ([facility]) [address] [place], [address], 07/09/2024 12:06:17 07/08/20 24 07/09/2024 URINA LYSIS , COMPL ETE occult blood Negati ve negati ve Not Available [facility] ([facility]) [address] [place], [address], 07/09/2024 12:06:17 07/08/20 24 07/09/2024 URINA LYSIS , COMPL ETE bilirubin Negati ve negati ve Not Available [facility] ([facility]) [address] [place], [address], 07/09/2024 12:06:17 07/08/20 24 07/09/2024 URINA LYSIS , COMPL ETE urobilinogen ,semi-qn 0.2 mg/dL 0.2-1. 0 normal Not Available [facility] ([facility]) [address] [place], [address], 07/09/2024 12:06:17 07/08/20 24 07/09/2024 URINA LYSIS , COMPL ETE nitrite, urine Negati ve negati ve Not Available [facility] ([facility]) [address], [place], [address], 07/09/2024 12:06:17 07/08/20 24 07/09/2024 URINA LYSIS , COMPL ETE microscopic examination See below: Micro scopi c was indic ated and was perfo rmed. Not Available [facility] ([facility]) [address], [place], [address], 07/09/2024 12:06:17 07/08/20 24 07/09/2024 URINA LYSIS , COMPL ETE WBC 0-5 /hpf 0 - 5 Not Available [facility] ([facility]) [address], [place], [address], 07/09/2024 12:06:17 07/08/20 24 07/09/2024 URINA LYSIS , COMPL ETE RBC None seen /hpf 0 - 2 Not Available [facility] ([facility]) [address], [place], [address], 07/09/2024 12:06:17 07/08/20 24 07/09/2024 URINA LYSIS , COMPL ETE epithelial cells (non renal) 0-10 /hpf 0 - 10 Not Available [facility] ([facility]) [address], [place], [address], 07/09/2024 12:06:17 07/08/20 24 07/09/2024 URINA LYSIS , COMPL ETE epithelial cells (renal) BRANCH ASSOCIATE TELLER Not Available [facility] ([facility]) [address], [place], [address], 07/09/2024 12:06:17 07/08/20 24 07/09/2024 URINA LYSIS , COMPL ETE casts None seen /lpf none seen Not Available [facility] ([facility]) [address], [place], [address], 07/09/2024 12:06:17 07/08/20 24 07/09/2024 URINA LYSIS , COMPL ETE cast type BRANCH ASSOCIATE TELLER Not Available [facility] ([facility]) [address], [place], [address], 07/09/2024 12:06:17 07/08/20 24 07/09/2024 URINA LYSIS , COMPL ETE crystals BRANCH ASSOCIATE TELLER Not Available [facility] ([facility]) [address], [place], [address], 07/09/2024 12:06:17 07/08/20 24 07/09/2024 URINA LYSIS , COMPL ETE crystal type BRANCH ASSOCIATE TELLER Not Available [facility]) [address], [place], [address], 07/09/2024 12:06:17 07/08/20 24 07/09/2024 URINA LYSIS , COMPL ETE mucus threads BRANCH ASSOCIATE TELLER Not Available [facility]) [address], [place], [address], 07/09/2024 12:06:17 07/08/20 24 07/09/2024 URINA LYSIS , COMPL ETE bacteria Few none seen/f ew Not Available [facility] ([facility]) [address], [place], [address], 07/09/2024 12:06:17 07/08/20 24 07/09/2024 URINA LYSIS , COMPL ETE yeast BRANCH ASSOCIATE TELLER Not Available [facility] ([facility]) [address], [place], [address], 07/09/2024 12:06:17 07/08/20 24 07/09/2024 URINA LYSIS , COMPL ETE trichomonas BRANCH ASSOCIATE TELLER Not Available [facility] ([facility]) [address] [place], [address], 07/09/2024 12:06:17 07/08/20 24 07/09/2024 URINA LYSIS , COMPL ETE comment BRANCH ASSOCIATE TELLER Not Available [facility] ([facility]) [address] [place], [address], 07/09/2024 12:06:17 07/08/20 24 07/09/2024 URINA LYSIS , COMPL ETE microscopic examination BRANCH ASSOCIATE TELLER Not Available [facility]) [address], [place], [address], 07/09/2024 12:06:17 07/08/20 24 07/09/2024 LIPID PANEL cholesterol, total 206 mg/dL 100-19 9 above high normal Not Available [facility] ([facility]) [address] [place], [address], 07/09/2024 12:06:18 07/08/20 24 07/09/2024 LIPID PANEL triglyceride s 199 mg/dL 0-149 above high normal Not Available [facility] ([facility]) [address] [place], [address], 07/09/2024 12:06:18 07/08/20 24 07/09/2024 LIPID PANEL HDL cholesterol 59 mg/dL >39 normal Not Available [facility]) [address], [place], [address], 07/09/2024 12:06:18 07/08/20 24 07/09/2024 LIPID PANEL VLDL cholesterol barry 34 mg/dL 5-40 Not Available [facility]) [address] [place], [address], 07/09/2024 12:06:18 07/08/20 24 07/09/2024 LIPID PANEL LDL chol calc ([facility]) 113 mg/dL 0-99 above high normal Not Available [facility] ([facility]) [address] [place], [address], 07/09/2024 12:06:18 07/08/20 24 07/09/2024 LIPID PANEL LDL calc comment: BRANCH ASSOCIATE TELLER Not Available [facility] ([facility]) [address], [place], [address], 07/09/2024 12:06:18 07/08/20 24 07/09/2024 HEMOG LOBIN A1C hemoglobin A1C 6.5 % 4.8-5. 6 above high normal Predi abete s: 5.7 - 6.4 Diabe rema: >6.4 Glyce margarito contr ol for adult s with diabe rema: <7.0 Not Available [facility] ([facility]) [address] [place], [address], 07/09/2024 12:06:18 07/08/20 24 07/09/2024 TSH REFLE X TO T4F TSH 1.400 uIU/m L 0.450- 4.500 normal Not Available [facility] ([facility]) [address] [place], [address], 07/09/2024 12:06:19 07/08/20 24 07/09/2024 THYRO ID ANTIB ODIES thyroid peroxidase (tpo) Ab <9 IU/mL 0-34 Not Available [facility] ([facility]) [address] [place], [address], 07/09/2024 12:06:20 07/08/20 24 07/09/2024 THYRO ID ANTIB ODIES thyroglobuli n antibody <1.0 IU/mL 0.0-0. 9 Thyro globu larry Antib itzel measu red by Kathryn castro Coult er Metho dolog y It shoul d be noted that the prese nce of thyro globu larry antib odies may not be patho genic nor diagn ostic , espec ially at very low level s. The assay manuf actur er has found that four perce nt of indiv idual s witho ut evide nce of thyro id disea se or autoi mmuni ty will have posit kathy TgAb level s up to 4 IU/mL . Not Available [facility] ([facility]) [address], [place], [address], 07/09/2024 12:06:20 07/08/20 24 07/09/2024 TRIIO DOTHY ANGEL E (T3), FREE triiodothyro nine (T3), free 3.8 pg/mL 2.0-4. 4 normal Not Available [facility] ([facility]) [address], [place], [address], 07/09/2024 12:06:20 10/27/20 23 10/27/2023 XR, chest , 2 view Chest 2 Views Fronta l and Lat Reason : produc tive cough x1 week w SOB and mild wheezi ng- rule in out any pneumo earl COMPAR EVELYN: 2 prior chest examin ations with the most recent dated 022. FINDIN GS: LINES AND TUBES: None. LUNGS AND PLEURA : Clear lungs. Normal pulmon rigo vascul arity. No pleura l effusi on. No pneumo thorax . HEART, MEDIAS TINUM AND ELADIO: Heart is normal in size. Normal medias tinal and hilar contou r. BONES AND SOFT TISSUE S: No acute abnorm ality. IMPRES LUCIA: No acute abnorm ality. WSN: [id number] Orderi ng Physic mauro: Lucy Suarez Dictat ed By: Jm Maldonado MD, V Dictat ed Date/T jay jay: 11:58 a Review ed By: Jm Maldonado MD, V Signed By: Jm Maldonado MD, V Signed Date/T jay jay: 11:58 am Transc ribed By: FLOYD Transc ribed Date/T jay jay: 11:57 am Patien t Class: Outpat ient [facility] [address] , [place], [address], 12/04/2023 15:48:56 10/27/20 23 10/27/2023 XR, chest , 2 view No observ ation record ed. [facility] [address], [place], [address], 12/04/2023 15:48:56 12/04/19 24 12/04/2023 XR, ribs, unila teral , w/ PA chest Ribs W/ PA Chest Right 5 views. Reason : right sided chest pain, r o rib fx PNA COMPAR EVELYN: None FINDIN GS: LINES AND TUBES: None. LUNGS AND PLEURA : The lungs are clear, and the pulmon rigo vascul arity is normal . No effusi on or pneumo thorax . HEART, MEDIAS TINUM AND ELADIO: Normal . BONES: No fractu res or bone lesion s. SOFT TISSUE S: Normal . IMPRES LUCIA: No defini te acute displa isaac right- sided rib fractu res are seen. No right- sided pneumo thorax is seen. WSN: [id number] Orderi ng Physic mauro: Angelo Hernandez Dictat ed By: Jm Maldonado MD, V Dictat ed Date/T jay jay: 5:24 pm Review ed By: Braulio cabral MD, Jm Angeles Signed By: Jm Maldonado MD, V Signed Date/T jay jay: 5:24 pm Transc ribed By: FLOYD Transc ribed Date/T jay jay: 5:23 pm Patien t Class: Outpat ient [facility]) [address], [place], [address], 04/06/2024 13:10:21 12/22/19 24 12/22/2023 MAMMO , scree loli, digit al, bilat eral PROCED URE: MM Digita l Mammo Screen ing INDICA TION: Screen ing for breast cancer . No known palpab le abnorm alitie s. COMPAR EVELYN: 12/20/19 23, 022 TECHNI QUE: Full-f ield digita l CC and MLO 3D tomosy nthesi s images of both breast s were acquir ed. Comput er-aid ed detect ion (CAD) was utiliz ed in the interp retati on of this study. DENSIT Y: The breast tissue is almost entire ly fatty. FINDIN GS: No suspic ious masses , suspic ious microc alcifi cation s, or areas of joseph ectura l distor tion are seen in either breast to sugges t malign marina. IMPRES LUCIA: No mammog raphic eviden ce of malign marina. RECOMM ENDATI ON: Annual mammog raphic screen ing BI-RAD S: 1 (Negat kathy) Lay letter mailed to ravi harvey WSN: [id number] Orderi ng Physic mauro: Angelo Hernandez Dictat ed By: Sarahi Najera MD Dictat ed Date/T jay jay: 12:41 pm Review ed By: Sarahi Najera MD Signed By: Sarahi Najera MD Signed Date/T jay jay: 12:41 pm Transc ribed By: CSB Transc riptio n Date/T jay jay: 12:38 pm Birads : Ravi harvey Class: Outpat ient [facility] [address] [place], [address], 04/06/2024 13:10:21 12/22/19 24 12/22/2023 MAMMO , scree loli, bilat eral No observ ation record ed. [facility] [address] [place], [address], 04/06/2024 13:10:21 Result Notes None recorded. Problems Name Problem SNOMED Code Status Onset Date Resolution Date Notes Provider Name and Address Organization Details Recorded Time Anaphyla xis 77565958 Completed 201305/31/2014 STORY: UNKNOWN CAUSE OCT 2012; RECORDED 02/25/20 14 8:52AM BY ANGELO Siegel MD, ANNOTATI ON/ADDEN DUM Angelo Ring MD [address] [facility] [address], [place], [address] , [facility] 6 21:33:38 Anxiety state [id number] Completed 201303/28/2016 Angelo Ring MD [address] [facility] [address], [place], [address] , [facility] 6 21:33:38 Patient status finding [id number] Completed 201205/31/2014 RECORDED 05/21/20 13 2:50PM BY GANESH HOPE MA, ANNOTATI ON/ADDEN DUM Angelo Ring MD [address] [facility] [address], [place], [address] , [facility] 6 21:33:38 Autoimmu ne disease 23494693 Completed 201305/31/2014 RECORDED 02/25/20 14 8:52AM BY ANGELO Siegel MD, ANNOTATI ON/ADDEN DUM Angelo Ring MD [address] [facility] [address], [place], [address] , [facility] 6 21:33:38 Hashimot o thyroidi tis 82900866 Active 2013 Not Available [facility] 3 13:43:23 Screenin g for malignan t neoplasm of cervix Completed 201305/31/2014 RECORDED 02/25/20 14 8:30AM BY CASSIA MCPHERSON MA, ANNOTATI ON/ADDEN DUM Angelo Ring MD [address] [facility] [address], [place], [address] , [facility] 6 21:33:38 Chest pain 37563161 Completed 201205/31/2014 IMPRESSI ON: SYMPTOMS C/W EIA POSSIBLE ANXIETY COMPONEN T. WILL TRY PRE EXERCISE MDI. ADVISED TO CALL IF PERSISTA NT/WORSE .; RECORDED 05/21/20 13 2:50PM BY GANESH HOPE MA, ANNOTATI ON/ADDEN DUM Angelo Ring MD [address] [facility] [address], [place], [address] , [facility] 6 21:33:38 Cough 81073583 Completed 201312/09/2014 IMPRESSI ON: LUNGS ARE CLEAR, ALREADY ON AUGMENTI N FOR SINUSITI S WILL COMPLETE COURSE, REC. MUCOLYTI CS/HYDRA TION; RECORDED 03/03/20 14 11:53AM BY LIZZETH PATHAK PA-C, OFFICE VISIT Angelo Ring MD [address] [facility] [address], [place], [address] , [facility] 6 21:33:38 Depressi ve disorder 72684657 Completed 201303/28/2016 Angelo Ring MD [address] [facility] [address], [place], [address] , [facility] 6 21:33:38 Recurren t major depressi ve episodes , in full remissio n Completed 201311/05/2019 Removal Reason: negative Angelo Ring MD [address] [facility] [address], [place], [address] , [facility] 9 09:34:27 Lyme disease 39571134 Completed 201305/31/2014 IMPRESSI ON: SXS CONSISTE NT WITH EARLY LYME, WILL TREAT. 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 I DO NOT SEE ANY BELLS PALSY AT THIS POINT. REASSURE Shine MARSHALL THAT SHE HAS NO DROOP; RECORDED 02/25/20 14 8:52AM BY ANGELO Siegel MD, ANNOTATI ON/ADDEN DUM Angelo Ring MD [address] [facility] [address], [place], [address] , [facility] 6 21:33:38 Malaise and fatigue 431965245 Completed 201205/31/2014 IMPRESSI ON: COUPLED TO CHEST [...] MCPHERSON MA, ALEX ON/LEAH Ring MD [address] [facility] [address], [place], [address] , [facility] 6 21:33:38 Influenz a vaccine needed [id number] 06 Completed 201205/31/2014 RECORDED 07/31/20 13 10:03AM BY RAMYA BENTON I, NURSE VISIT Angelo Ring MD [address] [facility] [address], [place], [address] , [facility] 6 21:33:38 Adult health examinat ion Completed 201305/31/2014 IMPRESSI ON: IMMUNIZA TION STATUS UTD WILL SCREEN BASED ON RISK FACTORS. REGULAR DENTAL CARE AND SEATBELT USE ADVISED. DISTRACT ED DRIVING DISCUSSE D. CERVICAL CANCER SCREENIN G UTD. ADVANCE DIRECTIV ES DISCUSSE D AND IN PLACE.; RECORDED 03/03/20 14 9:43AM BY CALEB HENRY MA, ALEX ON/ DUM Angelo Ring MD [address] [facility] [address], [place], [address] , [facility] 6 21:33:38 Celiac disease 717006186 Completed 201304/02/2017 STORY: BLOOD TESTS NEGATIVE FOR CELIAC Angelo Ring MD [address] [address], [place], [address] , [facility] 7 10:21:10 History of infectio us disease 803915341 Completed 201205/31/2014 RECORDED 01/28/20 13 4:18PM BY CASSIA MCPHERSON MA, ALEX ON/ADD DUM Angelo Ring MD [address] [facility] [address], [place], [address] , [facility] 6 21:33:38 Obesity 786889822 Completed 201304/02/2017 IMPRESSI ON: POTENTIA L ADVERSE HEALTH CONSEQUE WVES DISCUSSE D. INCREASE D PHYSICAL ACTIVITY AND APPROPRI ATWE DIETARY CHANGES ADVISED. ; RECORDED 03/03/20 14 9:43AM BY CALEB HENRY MA, OFFICE VISIT Cherie Hannha PA-C [address] [address], [place], [address] , [facility] 3 15:22:51 Panic disorder without agorapho litzy 98382595 Completed 201305/31/2014 RECORDED 02/25/20 14 8:52AM BY ANGELO Siegel MD, ANNOTATI ON/ADDEN DUM Angelo Ring MD [address] [address], [place], [address] , [facility] 6 21:33:38 Immuniza tion refused Completed 201205/31/2014 RECORDED 01/28/20 13 4:18PM BY CASSIA MCPHERSON MA, ANNOTATI ON/ADDEN DUM Angelo Ring MD [address] [address], [place], [address] , [facility] 6 21:33:38 Chronic sinusiti s 96380592 Completed 201305/31/2014 IMPRESSI ON: C/W POST VIRAL SECONDAR Y BACTERIA L PROCESS. CALL INB/WORS E.; RECORDED 03/03/20 14 9:43AM BY CALEB HENRY MA, ANNOTATI ON/PINEDA Ring MD [address] [address], [place], [address] , [facility] 6 21:33:38 Tachycar effie 2345352 Completed 201205/31/2014 IMPRESSI ON: WILL SCREEN FOR CONDUCTI ON ABNORMAL ITY.; RECORDED 05/21/20 13 2:50PM BY GANESH HOPE MA, ANNOTATI ON/ADDEN DUM Angelo Ring MD [address] [address], [place], [address] , [facility] 6 21:33:38 Vitamin D deficien cy 79652720 Active 2013 Not Available [facility] 3 13:43:23 Anaphyla xis 76281737 Completed 201306/27/2014 STORY: UNKNOWN CAUSE OCT 2012; RECORDED 02/25/20 14 8:52AM BY ANGELO Siegel MD, ANNOTATI ON/ADDEN DUM Angelo Ring MD [address], [place], [address] , [facility] 6 21:33:38 Patient status finding [id number] Completed 201206/27/2014 RECORDED 05/21/20 13 2:50PM BY GANESH HOPE MA, ANNOTATI ON/ADDEN DUM Angelo Ring MD [address], [place], [address] , [facility] 6 21:33:38 Autoimmu ne disease 95172466 Completed 201306/27/2014 RECORDED 02/25/20 14 8:52AM BY ANGELO Siegel MD, ANNOTATI ON/ADD DUM Angelo Ring MD [address], [place], [address] , [facility] 6 21:33:38 Screenin g for malignan t neoplasm of cervix Completed 201306/27/2014 RECORDED 02/25/20 14 8:30AM BY CASSIA MCPHERSON MA, ANNOTATI ON/ADDEN DUM Angelo Ring MD [address], [place], [address] , [facility] 6 21:33:38 Chest pain 78463440 Completed 201206/27/2014 IMPRESSI ON: SYMPTOMS C/W EIA POSSIBLE ANXIETY COMPONEN T. WILL TRY PRE EXERCISE MDI. ADVISED TO CALL IF PERSISTA NT/WORSE .; RECORDED 05/21/20 13 2:50PM BY GANESH HOPE MA, ANNOTATI ON/ DUM Angelo Ring MD [address], [place], [address] , [facility] 6 21:33:38 Lyme disease 48152253 Completed 201306/27/2014 IMPRESSI ON: SXS CONSISTE NT WITH EARLY LYME, WILL TREAT. 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 I DO NOT SEE ANY BELLS PALSY AT THIS POINT. REASSURE Shine MARSHALL THAT SHE HAS NO DROOP; RECORDED 02/25/20 14 8:52AM BY ANGELO Siegel MD, CAROLINEATI ON/ DUM Angelo Ring MD [address] [facility] [address], [place], [address] , [facility] 6 21:33:38 Malaise and fatigue 793278448 Completed 201206/27/2014 IMPRESSI ON: COUPLED TO CHEST [...] CAROLINEATI ON/ DUM Angelo Ring MD [address] [facility] [address], [place], [address] , [facility] 6 21:33:38 Influenz a vaccine needed [id number] 06 Completed 201206/27/2014 RECORDED 07/31/20 13 10:03AM BY RAMYA BENTON I, NURSE VISIT Angelo Ring MD [address] [facility] [address], [place], [address] , [facility] 6 21:33:38 Adult health examinat ion Completed 201306/27/2014 IMPRESSI ON: IMMUNIZA TION STATUS UTD WILL SCREEN BASED ON RISK FACTORS. REGULAR DENTAL CARE AND SEATBELT USE ADVISED. DISTRACT ED DRIVING DISCUSSDanica [place]. CERVICAL CANCER SCREENIN G UTD. ADVANCE DIRECTIV ES DISCUSSDanica D AND IN PLACE.; RECORDED 03/03/20 14 9:43AM BY CALEB HENRY MA, ANNOTATI ON/ADDLEAH DUM Angelo Ring MD [address] [address], [place], [address] , [facility] 6 21:33:38 History of infectio us disease 142860106 Completed 201206/27/2014 RECORDED 01/28/20 13 4:18PM BY CASSIA MCPHERSON MA, ANNOTATI ON/PINEDA Ring MD [address] [address], [place], [address] , [facility] 6 21:33:38 Panic disorder without agorapho litzy 30506699 Completed 201306/27/2014 RECORDED 02/25/20 14 8:52AM BY ANGELO Siegel MD, ANNOTATI ON/PINEDA Ring MD [address] [address], [place], [address] , [facility] 6 21:33:38 Immuniza tion refused Completed 201206/27/2014 RECORDED 01/28/20 13 4:18PM BY CASSIA MCPHERSON MA, ANNOTATI ON/ DUM Angelo Ring MD [address] [address], [place], [address] , [facility] 6 21:33:38 Chronic sinusiti s 67293559 Completed 201306/27/2014 IMPRESSI ON: C/W POST VIRAL SECONDAR Y BACTERIA L PROCESS. CALL INB/WORS E.; RECORDED 03/03/20 14 9:43AM BY CALEB HENRY MA, ANNOTATI ON/ADDEN DUM Angelo Ring MD [address] [facility] [address], [place], [address] , [facility] 6 21:33:38 Tachycceci effie 0137293 Completed 201206/27/2014 IMPRESSI ON: WILL SCREEN FOR CONDUCTI ON ABNORMAL ITY.; RECORDED 05/21/20 13 2:50PM BY GANESH HOPE MA, ANNOTATI ON/ADDEN DUM Angelo Ring MD [address] [facility] [address], [place], [address] , [facility] 6 21:33:38 Divertic ulitis of colon 428883357 Completed 201404/02/2017 Angelo Ring MD [address] [facility] [address], [place], [address] , [facility] 7 10:20:23 Body mass index 30+ - obesity 499090327 Completed 07/06/2020 Cassia Mcpherson MA null, [facility] 0 15:05:27 Multiple joint pain 30287620 Active Not Available [facility] 3 13:43:23 Mixed anxiety and depressi ve disorder 493780449 Completed 04/02/2017 Angelo Ring MD [address] [facility] [address], [place], [address] , [facility] 7 10:20:46 Abdomina l pain 00847995 Completed 03/28/2016 Angelo Ring MD [address] [facility] [address], [place], [address] , [facility] 6 21:33:38 Divertic ular disease 730973093 Active s/p partial colectom y Not Available [facility] 3 13:43:23 Diplopia 71744428 Active Not Available [facility] 3 13:43:23 Floaters in visual field 068437764 Completed 03/28/2016 Angelo Ring MD [address] [facility] [address], [place], [address] , [facility] 6 21:33:38 Headache 04922128 Completed 04/02/2017 Angelo Ring MD [address] [facility] [address], [place], [address] , [facility] 7 10:20:58 Myasthen ia gravis 58790374 Active Not Available [facility] 3 13:43:24 Acne 20251157 Completed 04/02/2017 Angelo Ring MD [address] [address], [place], [address] , [facility] 7 10:20:27 Hypergly cemia 17849505 Completed 04/02/2017 Angelo Ring MD [address] [address], [place], [address] , [facility] 7 10:21:18 Vitiligo 43077469 Active Not Available [facility] 3 13:43:23 Autoimmu ne polyendo crinopat hy 75349675 Active Not Available [facility] 3 13:43:23 Macrocyt osis 395147929 Active 2018 Not Available [facility] 3 13:43:23 Irritabl e bowel syndrome 70666117 Active 2018 Not Available [facility] 3 13:43:23 Recurren t major depressi on in partial remissio n 26263955 Active 2018 Not Available [facility] 3 13:43:23 Essentia l hyperten lucia 02719126 Active 2019 Not Available [facility] 3 13:43:24 Anti-nuc lear factor detected 426090270 Active 2020 Not Available [facility] 3 13:43:23 Herpes zoster 5974744 Active 2020 Not Available [facility] 3 13:43:23 History of SARS-CoV -2 53034678116 3816770 Active 2021 Not Available [facility] 3 13:43:23 Tinea pedis 6036946 Active 2021 Not Available [facility] 3 13:43:24 Generali zed anxiety disorder 16868557 Active 2021 Not Available [facility] 3 13:43:23 Prediabe rema 610999714 Active 2022 Not Available [facility] 3 13:43:24 Hyperlip idemia 80698924 Active 2022 Not Available [facility] 3 13:43:23 Pain in right heel 63989623739 63255 Completed 202208/05/2023 Angelo Ring MD [address], [place], [address] , [facility] 3 13:48:40 Candidia sis of vagina 02998253 Completed 202208/05/2023 Angelo Ring MD [address], [place], [address] , [facility] 3 13:35:30 Snoring 79692509 Completed 202208/05/2023 Angelo Ring MD [address], [place], [address] , [facility] 3 13:48:55 Obstruct kathy sleep apnea of adult 16517421115 03 Active 2022 Not Available [facility] 3 13:43:23 Morbid obesity 235398040 Active 2022 Not Available [facility] 3 13:43:23 Family history of malignan t melanoma 587483937 Active 2023 Angelo Ring MD [address], [place], [address] , [facility] 4 17:18:08 Body mass index 40+ - severely obese 792673029 Active 2023 Angelo Ring MD [address] [address], [place], [address] , [facility] 4 09:39:33 Problem Notes None recorded. Procedures Surgical History Date Name Laterality Status Provider Name and Address Organization Details Recorded Time 12/22/19 24 Most Recent Mammogram completed Lizeth Herrera [facility] 12/22/2023 13:04:28 12/22/19 24 Mammogram both breasts completed Lizzeth Jack MA [facility] 09/07/2024 09:03:27 12/20/19 23 Mammogram both breasts completed Lizzeth Jack MA [facility] 08/05/2023 13:06:43 12/05/19 22 Mammogram Screening completed Liyah Sheikh [facility] 12/28/2021 14:01:53 03/19/20 20 Date of Last Pap Smear completed Cassia Mcpherson MA [facility] 07/06/2020 15:07:41 06/21/20 18 Cholecystectomy completed Angelo Ring MD [address] [address], [place], [address], [facility] 06/23/2018 10:10:03 12/26/19 16 Gastrointestinal Surgery completed Angelo Ring MD [address], [address], [facility] 12/27/2015 08:41:03 03/15/20 11 Date of Last Colonoscopy completed Cassia Mcpherson MA [facility] 03/28/2016 08:32:59 03/15/20 11 Colonoscopy completed Cassia Mcpherson MA [facility] 03/28/2016 08:33:00 Dxa bone density study completed Cassia Mcpherson MA [facility] 04/02/2017 09:39:01 Imaging Results Imaging Date Name Status LastModified by Organiz ation Details LastModified Time 10/27/2023 XR, chest, 2 view completed [facility] [address] [place], [address], 12/04/2023 15:48:56 10/27/2023 XR, chest, 2 view completed [facility] [address] [place], [address], 12/04/2023 15:48:56 12/04/2023 XR, ribs, unilateral, w/ PA chest completed [facility] [address] [place], [address], 04/06/2024 13:10:21 12/22/2023 MAMMO, screening, digital, bilateral completed [facility] [address] [place], [address], 04/06/2024 13:10:21 12/22/2023 MAMMO, screening, bilateral completed [facility] [address], [place], [address], 04/06/2024 13:10:21 Procedure Notes None recorded. Medical Equipment None Reported. Allergies Allergen ID Allergen Name Allergen Category Reaction Reaction Severity Criticality Documentation Date Start Date Code Code System Note Provider Name and Address Organization Details Recorded Time 14734 Substance with sulfonami de structure and antibacte rial mechanism of action (substanc e) medicatio n hives moderate Not available 12/09/20142013 13574 8003 SNOMED REACT ION: HIVES Lily her, [facility] 5 11:01:46 72229 acetamino phen / oxycodone medicatio n other mild Not available 12/09/2014 47683 3 RxNorm agita tidalton Ring MD [address], [place], [address], [facility] 5 08:52:25 74035 Dilaudid medicatio n rash mild Not available 01/03/20162015 61353 3 RxNorm hives ,rash , itchi ness, repor rafia from pt ED visit Flori Springer taina, [facility] 6 08:13:55 57911 erythromy morro medicatio n other moderate Not available 03/28/20162015 4053 RxNorm MG flare Angelo Ring MD [address], [place], [address], [facility] 6 09:06:27 27491 amoxicill in medicatio n abdominal pain severe Not available 02/01/20192018 723 RxNorm Iris Lutz LPN [facility], [facility] 9 09:36:51 62467 Bactrim medicatio n Not available Not available Not available 02/28/2020 92194 9 RxNorm Gita Money [facility], [facility] 0 10:20:34 16610 cephalexi n medicatio n rash moderate Not available 12/24/2022 2231 RxNorm KAYLI Hollingsworth, [facility] 3 14:38:30 31298 bupropion Not available other mild Not available 12/24/2022 04507 RxNorm eleva rafia BP Not Available [facility] 3 17:58:18 4228 clindamyc in hydrochlo ride medicatio n hives moderate Not available 05/31/20142013 51004 RxNorm Cassia Mcpherson MA [facility], [facility] 6 08:28:39 4229 Paxil medicatio n Not available Not available Not available 05/31/20142013 12406 8 RxNorm REACT ION: ECCHY MOSIS Angelo Ring MD [address], [place], [address], [facility] 7 10:12:34 Medications Name Sig Start Date [...] 03/11 completed RECORDED 03/11/20 14 9:03AM BY LIZZETH PATHAK PA-C, MEDICATI ON AUTO-JANET CTIVATIO N; [...] Relief 50 mcg/actua tion nasal spray,nacho pension [place] 1 spray every day by intranas al [...] height Body mass index (BMI) Body weight Oxygen saturation Oxygen saturation in Arterial blood by Pulse oximetry Heart rate Body temperature Systolic blood pressure Diastolic blood pressure Provider Name and Address Organization Details Last Updated DateTime 3 156.85 cm 51.6 kg/m2 398176. 56 g 97 % 97 % 112 /min 98.2 [degF] 126 mm[Hg] 81 mm[Hg] Lacy Graham MA [facility] 3 10:47:53 Date Recorded Body height Body mass index (BMI) Body weight Heart rate Oxygen saturation Oxygen saturation in Arterial blood by Pulse oximetry Body temperature Systolic blood pressure Diastolic blood pressure Provider Name and Address Organization Details Last Updated DateTime 4 156.85 cm 52.5 kg/m2 850691. 83 g 93 /min 97 % 97 % 98.1 [degF] 127 mm[Hg] 85 mm[Hg] Lorenza grissom MA [facility] 4 15:22:37 Date Recorded Body height Body mass index (BMI) Body weight Heart rate Oxygen saturation Oxygen saturation in Arterial blood by Pulse oximetry Body temperature Systolic blood pressure Diastolic blood pressure Provider Name and Address Organization Details Last Updated DateTime 4 156.85 cm 53.5 kg/m2 227665. 79 g 120 /min 96 % 96 % 98.7 [degF] 130 mm[Hg] 84 mm[Hg] Waqas atkins [facility] 4 12:51:58 Date Recorded Heart rate Provider Name an d Address Organization Details Last Updated DateTime 04/06/2024 88 /min Angelo Bartlett i, MD [address], [address], [facility] 04/06/2024 13:21:01 Date Recorded Body height Body mass index (BMI) Body weight Heart rate Oxygen saturation Oxygen saturation in Arterial blood by Pulse oximetry Body temperature Systolic blood pressure Diastolic blood pressure Provider Name and Address Organization Details Last Updated DateTime 4 156.85 cm 52.8 kg/m2 461068. 22 g 88 /min 98 % 98 % 98.2 [degF] 125 mm[Hg] 83 mm[Hg] Kelly Ramirez LPN [facility] 4 12:48:01 Date Recorded Body height Body mass index (BMI) Body weight Heart rate Oxygen saturation Oxygen saturation in Arterial blood by Pulse oximetry Body temperature Systolic blood pressure Diastolic blood pressure Provider Name and Address Organization Details Last Updated DateTime 4 156.85 cm 50.8 kg/m2 854984 g 99 /min 96 % 96 % 98.1 [degF] 118 mm[Hg] 81 mm[Hg] Lizzeth Jack [facility] 4 09:00:49 Social History Question Answer Notes LastModified by Organizat ion Details LastModified Time Tobacco Smoking Status Never Smoker Not Available [facility] 09/19/2020 03:36:39 Do You Have An Advance Directive? Yes HCP -Jacklyn, Kaela/Mauro Information not available 06/13/2023 What Is Your Level Of Alcohol Consumption? Occasional Information not available 08/05/2023 Is Blood Transfusion Acceptable In An Emergency? Yes [id number] Information not available 09/19/2020 What Is Your Level Of Caffeine Consumption? Moderate Coffee [id number] Information not available 09/19/2020 How Much Tobacco Do You Chew? None [id number] Information not available 09/19/2020 Are You Currently Employed? Yes [employer] [id number] Information not available 09/19/2020 What Type Of Diet Are You Following? REGULAR Information not available 07/15/2022 Which Illicit Or Recreational Drugs Have You Used? None [id number] Information not available 09/19/2020 Do You Or Have You Ever Used E-cigarettes Or Vape? 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 No [email or web address] Information not available 06/28/2020 Are You Or Anyone In Your Household A Health Care Provider Or Emergency Responder? No Information not available 06/28/2020 To The Best Of Your Knowledge Have You Been In Close Proximity To Any Individual Who Tested Positive For COVID-19? No Information not available 06/28/2020 *AWV ONLY* Are [...] How Many Children Do You Have? 3 [id number] Information not available 09/19/2020 Do You Use Protection During Sex? No Information not available 07/08/2024 Do You Use Your Seat Belt Or Car Seat Routinely? Yes Information not available 07/15/2022 Seat Belts Used Routinely Yes Information not available 06/13/2023 Are You Sexually Active? Yes [id number] Information not available 09/19/2020 Smoke Alarm In Home Yes Information not available 06/13/2023 Do You Have Smoke And Carbon Monoxide Detectors In Your Home? Yes Information not available 07/15/2022 At What Age Did You Start Smoking Tobacco? 1 [id number] Information not available 09/19/2020 Are You Passively Exposed To Smoke? No Information not available 03/17/2015 Do You Or Have You Ever Used Smokeless Tobacco? Never Used Smokeless Tobacco [id number] Information not available 09/19/2020 How Much Tobacco Do You Smoke? No [id number] Information not available 09/19/2020 Do You Use Any Illicit Or Recreational Drugs? No Information not available 06/13/2023 Do You Use Sunscreen Routinely? Yes [id number] Information not available 09/19/2020 How Many Years Have You Smoked Tobacco? 0 [id number] Information not available 09/19/2020 Do You Or Have You Ever Used Any Other Forms Of Tobacco Or Nicotine? No Information not available 06/13/2023 Sex: Unknown Functional Status Question Answer Note LastModified by Organizat ion Details LastModified Time Are you able to walk? YESWOREST Information not available 06/13/2023 Are you able to care for yourself? Yes [id number] Information not available 09/19/2020 What is your [...] History Condition Response Other N Gout N Kidney Stones N Blood Diseases N Hyperthyroidism N Breast Cancer N COPD N Depression Y Hypothyroidism Y Lung Disease N Defects or Inherited Disease N Anesthesia [...] Problems Y GI Problems Y Acne N Skin Problems N Eating Disorder N Anemia N Constipation N Bladder Problems N Mental Illness N Ovarian Cancer N Diabetes N Blood Transfusions N Seizures/Epilepsy N Tuberculosis N AIDS/HIV N Congestive Heart Failure (CHF) N Eczema N Diverticulitis Y Abuse/Domestic Violence N Asthma N Allergies N Reflux/GERD N Hepatitis N Pulmonary Embolism N Hypertension N Osteoporosis N Chicken Pox N Autism Spectrum Disorder (ASD) N Gynecological History Statement/Question Response Date of Last Pap Smear 03/19/2020 Date of Last Colonoscopy 03/15/2011 Most Recent Mammogram 12/22/2023 Most Recent Bone Density Obstetrics History GPAL:G 0 P 0 0 0 0 Immunizations Vaccine Type Date Status Note Provider Nam e and Address Organization Details Recorded Time COVID-19, mRNA, LNP-S, PF, 30 mcg/0.3 mL dose 1 completed Lizeth her, [facility] 09/29/2023 09:57:53 COVID-19, mRNA, LNP-S, PF, 30 mcg/0.3 mL dose 1 completed Lizeth her [facility] 09/29/2023 09:57:53 COVID-19, mRNA, LNP-S, PF, 30 mcg/0.3 mL dose 1 completed Lizeth her, [facility] 09/29/2023 09:57:53 COVID-19, mRNA, LNP-S, PF, 30 mcg/0.3 mL dose 1 completed Lizeth her, [facility] 09/29/2023 09:57:53 Influenza, MDCK, quadrivalent, PF 1 completed Lizeth her [facility] 09/29/2023 09:57:53 Tdap 9 completed Lizeth L Herrera null, [facility] 09/29/2023 09:57:53 Influenza, split virus, quadrivalent, PF 8 completed Lizeth L Herrera null, [facility] 09/29/2023 09:57:53 Influenza, split virus, quadrivalent, PF 0 completed Lizeth L Herrera null, [facility] 09/29/2023 09:57:53 COVID-19, mRNA, LNP-S, PF, 100 mcg/0.5mL dose or 50 mcg/0.25mL dose 2 completed Lizeth L Herrera null, [facility] 09/29/2023 09:57:53 Influenza, split virus, quadrivalent, PF 6 completed Lizeth L Herrera null, [facility] 09/29/2023 09:57:53 Influenza, split virus, quadrivalent, PF 9 completed Lizeth L Herrera null, [facility] 09/29/2023 09:57:53 Influenza, MDCK, quadrivalent, PF 2 completed Lizeth L Herrera null, [facility] 09/29/2023 09:57:53 COVID-19, mRNA, LNP-S, bivalent, PF, 50 mcg/0.5 mL or 25mcg/0.25 mL dose 2 completed Lizeth L Herrera null, [facility] 09/29/2023 09:57:53 COVID-19, mRNA, LNP-S, PF, 50 mcg/0.5 mL 3 completed Lizeth L Herrera null, [facility] 09/29/2023 09:57:53 Influenza, MDCK, trivalent, PF 4 completed Lizzeth Jack [place] null, [facility] 09/07/2024 08:52:06 COVID-19, mRNA, LNP-S, PF, mina-sucrose, 30 mcg/0.3 mL 4 completed Lizzeth Jack [place] null, [facility] 09/07/2024 08:52:06 Tdap 9 completed Lizeth Herrera null, [facility] 09/29/2023 09:57:53 influenza, seasonal, intradermal, preservative free 3 completed Lizeth Herrera null, [facility] 09/29/2023 09:57:53 Influenza, split virus, quadrivalent, PF 3 completed Angelo Ring MD [address] [facility] [address], [place], [address], [facility] 08/05/2023 13:57:35 Past Encounters Encounter ID Performer Location Encounter Start Date Encounter Closed Date Diagnosis/Indication Diagnosis SNOMED-CT Code Diagnosis ICD10 Code [id number] autoEComm erce [id number] [facility] [place] [address] 10/30/2012 00:00:00 [id number] autoEComm erce [address] [facility] [place] [address] 12/17/2012 00:00:00 [id number] autoEComm erce [address] [facility] [place] [address] 01/28/2013 00:00:00 [id number] autoEComm erce [address] [facility] [place] [address] 05/21/2013 00:00:00 [id number] autoEComm erce [address] [facility] [place] [address] 02/24/2014 00:00:00 [id number] autoEComm erce [address] [facility] [place] [address] 03/03/2014 00:00:00 [id number] Cha Gil [place] Main Office [address] [place] [address] 11/29/2014 14:07:45 11/29/2014 14:55:38 Adnexal tenderness 149490391 Acute abdomen [id number] Cha Gil [place] Main Office [address] [address] [place] [address] 12/09/2014 08:01:30 12/09/2014 08:56:51 Diverticulitis of colon 371300712 [id number] Cassia Mcpherson [place] Main Office [address] [address] [place] [address] 02/15/2015 09:48:55 02/15/2015 10:33:32 Cough 53472628 [id number] Emerald Grimm Main Office [address] [address] [place] [address] 03/17/2015 13:57:14 03/17/2015 15:19:51 Adult health examination 568485430 Body mass index 30+ - obesity 819879091 Multiple joint pain 3567 8005 Minh thyroiditis 21 595896 Mixed anxi ety and depressive disorder 352114927 [id number] Cassia Mcpherson [place] Main Office [address] [address] [place] [address] 05/30/2015 14:03:59 05/30/2015 15:06:20 Abdominal pain 90876546 [id number] Essence sosa Main Office [address] [address] [place] [address] 06/01/2015 11:25:30 06/01/2015 11:52:16 Diverticulitis of colon 770108312 [id number] Main Office [address] [address] [place] [address] 06/22/2015 14:07:00 06/22/2015 15:04:05 Diverticulitis of colon 453914098 Mixed anxi ety and depressive disorder 661589184 Minh thyroiditis 21 762302 [id number] Shante Gr Main Office [address] [address] [place] [address] 07/11/2015 12:42:00 07/11/2015 13:32:02 Diplopia 73379833 Floaters i n visual field 064449983 Headache 08419001 [id number] Main Office [address] [address] [place] [address] 10/20/2015 13:24:10/20/2015 14:01:53 Diverticulitis of colon 719469559 K57.32 [id number] Angelo Ring MD Main Office [address] [address] [place] [address] 12/07/2015 08:06:46 12/07/2015 08:52:55 Diverticulitis of colon 519997150 K57.32 Minh thyroiditis 21 217603 E06.3 Needs infl uenza immunization 740356827 Z23 Myasthenia gravis 564807 04 G70.00 Body mass index 30+ - obesity 203277912 Z68.38 [id number] Angelo Ring MD Main Office [address] [address] [place] [address] 01/02/2016 10:23:43 01/16/2016 11:46:47 [id number] Angelo Ring MD Main Office [address] [address] [place] [address] 03/28/2016 08:05:39 03/28/2016 09:29:39 Adult health examination 269814096 Z00.00 Body mass index 30+ - obesity 205833565 Z68.36 Minh thyroiditis 21 102696 E06.3 Hyperglycemia 23204588 R 73.9 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 [id number] Jorge Luis smith Main Office [address] [address] [place] [address] 01/14/2017 08:40:56 01/14/2017 09:24:29 Acute conjunctivitis 61794225 H10.31 [id number] Angelo Ring MD Main Office [address] [address] [place] [address] 04/02/2017 09:26:44 04/02/2017 10:34:49 Adult health examination 653865701 Z00.01 Myasthenia gravis 856116 04 G70.00 Body mass index 30+ - obesity 865797109 Z68.36 Increased frequency of urination 275786353 R35.0 [id number] Angelo Ring MD Main Office [address] [address] [place] [address] 04/03/2018 08:22:48 04/03/2018 09:21:03 Adult health examination 205132363 Z00.00 Myasthenia gravis 562996 04 G70.00 Body mass index 30+ - obesity 273053501 Z68.36 Minh thyroiditis 21 279367 E06.3 Vitamin D deficiency 347 06379 E55.9 [id number] Angelo Ring MD Main Office [address] [address] [place] [address] 06/19/2018 14:32:25 06/19/2018 15:29:15 Sprain of jaw 82848728 S03.40XA [id number] Angelo Ring MD Main Office [address] [address] [place] [address] 06/23/2018 08:44:23 06/23/2018 10:11:04 [id number] Angelo Ring MD Main Office [address] [address] [place] [address] 09/03/2018 14:32:34 09/03/2018 14:43:41 Needs influenza immunization 551791699 Z23 [id number] Angelo Ring MD Main Office [address] [address] [place] [address] 01/29/2019 10:50:49 01/29/2019 11:48:59 Acute pharyngitis 333548873 J02.9 Acute vaginitis 29542746 N76.0 [id number] Angelo Ring MD Main Office [address] [address] 04/05/2019 14:03:43 04/05/2019 15:27:44 Adult health examination 193167456 Z00.00 Administra tion of viral vaccine 59426260 Z23 Screening for malignant neoplasm of breast 350212395 Z12.39 Myasthenia gravis 899223 04 G70.00 Body mass index 30+ - obesity 039071096 Z68.37 Minh thyroiditis 21 676154 E06.3 Vitamin D deficiency 347 39074 E55.9 Recurrent major depression in partial remission 82116487 F33.41 Macrocytosis 366895147 D 75.89 Hypercholesterolemia 136 93998 E78.00 Left flank pain 19844380 9 R10.9 Impaired f asting glycemia 222808922 R73.01 Obesity 002353784 E66.9 [id number] Angelo Ring MD Main Office [address] [address] [place] [address] 05/13/2019 14:41:57 05/13/2019 15:25:19 Recurrent major depressive episodes, in full remission 158529392 F33.42 Vitamin D deficiency 347 80566 E55.9 [id number] Angelo Ring MD Main Office [address] [address] [place] [address] 09/14/2019 12:37:13 09/14/2019 13:28:14 Needs influenza immunization 602943777 Z23 Major depr ession single episode, in partial remission 62177108 F32.4 [id number] Angelo Ring MD Main Office [address] [address] [place] [address] 11/05/2019 08:32:31 11/05/2019 09:43:46 Recurrent major depression in partial remission 83333786 F33.41 [id number] Angelo Ring MD Main Office [address] [address] [place] [address] 02/28/2020 09:22:21 02/28/2020 13:24:40 Recurrent major depression in partial remission 71007726 F33.41 Impaired f asting glycemia 455984554 R73.01 Hypercholesterolemia 136 52799 E78.00 Vitamin D deficiency 347 37044 E55.9 [id number] Angelo Ring MD Main Office [facility] [address] [place] [address] 06/28/2020 14:04:47 06/28/2020 15:12:18 Hypertensive disorder 57047128 I10 Minh thyroiditis 21 020843 E06.3 [id number] Angelo Ring MD Main Office [facility] [address] [place] [address] 07/06/2020 14:50:52 07/06/2020 15:58:04 Adult health examination 294199493 Z00.00 Essential hypertension 54424788 I10 Screening for malignant neoplasm of breast 559927890 Z12.39 Myasthenia gravis 883541 04 G70.00 Obesity 763683044 E66.9 Body mass index 30+ - obesity 833966819 Z68.39 Minh thyroiditis 21 385721 E06.3 Vitamin D deficiency 347 62645 E55.9 Recurrent major depression in partial remission 71828322 F33.41 Hypercholesterolemia 136 34324 E78.01 Impaired f asting glycemia 798164520 R73.01 [id number] Angelo Ring MD Main Office [address] [address] 09/05/2020 13:24:59 09/05/2020 13:59:04 Essential hypertension 35984867 I10 Recurrent major depression in partial remission 50763470 F33.41 Needs infl uenza immunization 530914185 Z23 [id number] Angelo Ring MD [address] [address] 10/13/2020 08:10:30 10/13/2020 13:15:17 Essential hypertension 36206807 I10 Recurrent major depression in partial remission 99926501 F33.41 [id number] Angelo Ring MD [address] [address] 02/23/2021 08:38:27 02/23/2021 09:43:57 Essential hypertension 70267749 I10 Recurrent major depression in partial remission 33771370 F33.41 Impaired f asting glycemia 240085196 R73.01 [id number] [address] [address] 03/08/2021 08:40:17 03/08/2021 11:56:11 Headache 65298625 R51.9 Minh thyroiditis 21 114906 E06.3 Myasthenia gravis 629986 04 G70.00 Essential hypertension 72161795 I10 [id number] Angelo Ring MD Main Office [facility] [address] [address] 04/26/2021 12:40:23 04/26/2021 13:13:55 Contusion of right foot 6831132202 7832552 S90.31XA [id number] Angelo Ring MD Main Office [address] [facility] [address] [place] [address] 07/12/2021 10:55:07 07/12/2021 12:03:32 Adult health examination 889428509 Z00.00 Essential hypertension 03155924 I10 Screening for malignant neoplasm of breast 057731676 Z12.39 Screening for malignant neoplasm of cervix 641743027 Z12.4 Hepatitis C screening 41 5087988 Z11.59 Myasthenia gravis 176199 04 G70.00 Obesity 873095721 E66.9 Minh thyroiditis 21 358330 E06.3 Vitamin D deficiency 347 69522 E55.9 Recurrent major depression in partial remission 45789688 F33.41 Hypercholesterolemia 136 01078 E78.01 Impaired f asting glycemia 694532956 R73.01 Bilateral knee pain 1187 636476 7573365 M25.561 M25.562 Body mass index 40+ - severely obese 248933121 E66.01 Z68.41 Adjustment disorder with anxious mood 40772513 F43.22 [id number] Angelo Ring MD [facility] [address] [facility] [address] [place] [address] 08/17/2021 08:33:56 08/21/2021 09:12:13 Recurrent major depression in partial remission 81968444 F33.41 Herpes zoster 0113772 B0 2.9 [id number] Byron Rodrigues MD [facility] [address] [facility] [address] [place] [address] 02/23/2022 08:23:04 02/25/2022 10:00:48 COVID-19 121690402 U07.1 [id number] Angelo Ring MD Main Office [address] [facility] [address] [place] [address] 07/15/2022 10:59:17 07/15/2022 12:27:18 Adult health examination 870379735 Z00.00 Recurrent major depression in partial remission 32070716 F33.41 Impaired f asting glycemia 177185755 R73.01 Essential hypertension 32455871 I10 Screening for malignant neoplasm of breast 289910544 Z12.39 Screening for malignant neoplasm of cervix 996489469 Z12.4 Body mass index 40+ - severely obese 699366009 E66.01 Z68.42 Hypercholesterolemia 136 44714 E78.01 Vitamin D deficiency 347 17136 E55.9 Minh thyroiditis 21 534523 E06.3 Myasthenia gravis 814473 04 G70.00 Tinea pedis 1445866 B35. 3 [id number] Angelo Ring MD [address] [address] [place] [address] 08/16/2022 08:17:39 08/16/2022 09:29:36 Recurrent major depression in partial remission 32731823 F33.41 Persistent cough 9947023 02 R05.3 Generalize d anxiety disorder 83888909 F41.1 [id number] Angelo Ring MD Main Office [address] [place] [address] [place] [address] 10/31/2022 12:35:45 10/31/2022 13:21:07 Generalized anxiety disorder 96657920 F41.1 Fever 424000857 R50.9 Essential hypertension 84647021 I10 [id number] ADAM Hector Main Office [facility] [address] [place] [address] 11/22/2022 13:58:23 11/22/2022 14:45:50 Essential hypertension 98248636 I10 Anxiety 81568274 F41.9 Prediabetes 735521334 R7 3.03 Hyperlipidemia 23885581 E78.5 Pain in right heel 79806 96927 524617 M79.671 Candidiasis of vagina 72 908886 B37.31 [id number] Erasmo Sandoval MD [address] [address] [place] [address] 12/07/2022 16:43:59 12/09/2022 10:40:33 Eruption 630389616 R21 [id number] Angelo Ring MD Main Office [address] [place] [address] [place] [address] 12/24/2022 14:31:04 12/24/2022 15:30:08 Essential hypertension 71807662 I10 Liver enzy mes level above reference range 364506046 R74.01 [id number] Angelo Ring MD Main Office [address] [facility] [address] [place] [address] 01/16/2023 09:03:04 01/16/2023 10:05:21 Generalized anxiety disorder 43878323 F41.1 Obesity 993148120 E66.9 Essential hypertension 12203306 I10 Attention deficit hyperactivity disorder, combined type 95017868 F90.2 Recurrent major depression in partial remission 52595841 F33.41 [id number] Angelo Ring MD [address] [address] [place] [address] 02/07/2023 13:10:43 02/07/2023 13:56:06 Generalized anxiety disorder 58696458 F41.1 Recurrent major depression in partial remission 07202731 F33.41 Attention deficit hyperactivity disorder, predominantly inattentive type 05908056 F90.0 Essential hypertension 45004788 I10 Snoring 80510168 R06.83 [id number] Angelo Ring MD Main Office [address] [address] [place] [address] 04/01/2023 11:19:49 04/01/2023 12:38:49 Generalized anxiety disorder 74242247 F41.1 Snoring 47709857 R06.83 Impaired f asting glycemia 924455015 R73.01 Recurrent major depression in partial remission 16021924 F33.41 Essential hypertension 87698716 I10 Minh thyroiditis 21 640429 E06.3 [id number] Angelo Ring MD [address] [address] [place] [address] 05/02/2023 08:32:28 05/06/2023 08:24:01 Generalized anxiety disorder 83760165 F41.1 Recurrent major depression in partial remission 54907135 F33.41 Obstructiv e sleep apnea of adult 1768485200 103 G47.33 Contact dermatitis 12028 004 L25.9 Body mass index 40+ - severely obese 224708135 E66.01 Z68.41 Prediabetes 465787608 R7 3.03 [id number] Angelo Ring MD [address] [address] [place] [address] 06/13/2023 08:26:00 06/13/2023 10:16:05 Generalized anxiety disorder 04698126 F41.1 Morbid obesity 367190471 E66.01 Obstructiv e sleep apnea of adult 4835705057 103 G47.33 Prediabetes 482846806 R7 3.03 Recurrent major depression in partial remission 26403830 F33.41 [id number] Angelo Ring MD Main Office [address] [place] [address] 08/05/2023 12:49:12 08/05/2023 14:02:15 Adult health examination 287997044 Z00.00 Needs infl uenza immunization 639392151 Z23 Body mass index 40+ - severely obese 942219931 E66.01 Z68.41 Recurrent major depression in partial remission 67213409 F33.41 Impaired f asting glycemia 351882104 R73.01 Essential hypertension 96202708 I10 Screening for malignant neoplasm of breast 158426678 Z12.39 Screening for malignant neoplasm of cervix 757039527 Z12.4 Hypercholesterolemia 136 61095 E78.01 Vitamin D deficiency 347 22126 E55.9 Minh thyroiditis 21 058841 E06.3 Myasthenia gravis 657725 04 G70.00 Abnormal g ait due to impairment of balance 939376292 R26.89 Prediabetes 077291859 R7 3.03 Obstructiv e sleep apnea of adult 9735944567 103 G47.33 [id number] Jenn Alejandra [facility] [address] [place] [address] 09/22/2023 14:22:00 09/22/2023 15:45:04 Adverse reaction to drug 31721893 T50.905A Morbid obesity 500538004 E66.01 Prediabetes 907370479 R7 3.03 Nausea 664441958 R11.0 [id number] Angelo Ring MD Main Office [address] [address] [place] [address] 10/27/2023 10:39:25 10/27/2023 11:05:58 Cough 63455018 R05.9 Expiratory wheezing 9763 007 R06.2 [id number] Jenn Alejandra Main Office [address] [place] [address] 12/04/2023 14:27:42 12/04/2023 16:00:04 Generalized anxiety disorder 55916642 F41.1 Morbid obesity 328608809 E66.01 Recurrent major depression in partial remission 90340162 F33.41 Right side d chest pain 710297799 R07.89 Female str ess incontinence 57725405 N39.3 Myasthenia gravis 130648 04 G70.00 Body mass index 40+ - severely obese 587097467 Z68.43 [id number] Angelo Ring MD Main Office [address] [address] 04/06/2024 12:43:35 04/06/2024 13:25:15 Generalized anxiety disorder 29900498 F41.1 Prediabetes 493274213 R7 3.03 Myasthenia gravis 574599 04 G70.00 [id number] Angelo Ring MD Main Office [address] [address] 07/08/2024 12:32:31 07/08/2024 13:26:04 Myasthenia gravis 48800022 G70.00 Minh thyroiditis 21 669939 E06.3 Obstructiv e sleep apnea of adult 9047501199 103 G47.33 Morbid obesity 222297885 E66.01 Body mass index 40+ - severely obese 084763442 E66.01 Z68.41 Essential hypertension 10115166 I10 Prediabetes 212518864 R7 3.03 [id number] Lorenza cross [place] Main Office [address] [address] 09/07/2024 08:48:57 09/07/2024 09:51:38 Adult health examination 487469002 Z00.00 Screening for malignant neoplasm of cervix 207171182 Z12.4 Screening for malignant neoplasm of breast 144925571 Z12.39 Body mass index 40+ - severely obese 317918860 E66.01 Z68.43 Needs infl uenza immunization 797028416 Z23 Recurrent major depression in partial remission 30675404 F33.41 Impaired f asting glycemia 693995123 R73.01 Essential hypertension 28623239 I10 Hypercholesterolemia 136 65839 E78.01 Vitamin D deficiency 347 60028 E55.9 Minh thyroiditis 21 473016 E06.3 Myasthenia gravis 985815 04 G70.00 Prediabetes 254945786 R7 3.03 Obstructiv e sleep apnea of adult 2289412715 103 G47.33 Screening for malignant neoplasm of colon 716902798 Z12.11 Health Concerns Section Related Observation LastModified by Organization Detai ls LastModified Time None Recorded Concern Status LastModified by Organization Details LastModified Time None Recorded Advance Directives Directive Y: HCP -Jacklyn, Margarito a/Mauro Payers Encounter Date Sequence Insurance Name Policy Number Policy Quick Covered Member ID Quick Member ID Guarantor Name 10/27/2023 1 [facility] [id number] 1 Frannie Edouard [id number] Joanna Elise 12/04/[address] [place] [address] [id number] 1 Frannie Edouard [id number] Joanna Elise 04/06/[address] [place] [address] [id number] 1 Frannie Edouard [id number] Joanna Elise 07/08/[address] [place] [address]) [id number] Joanna Elise [id number] Joanna lEise 09/07/[address] [place] [address]) [id number] Joanna Elise [id number] Joanna Elise Notes Date Note Type Note Provider Name and Address Organization Details Recorded Time 10/27/20 23 text/htm krissy Marshall presents to the office for a cough x 11 days. Reports of having a sore throat that resolved after x1 week (resolved on 10/23). Still experiencing a lingering cough and fatigue. Notes of feeling SOB after coughing episodes. Denies of any fever, chills, sore throat, nasal congestion, sinus pressure, chest pain, n/v/d. Angelo Ring MD [address] [address], [place], [address], [facility] 10/28/2023 13:42:08 12/04/19 24 text/htm l Anxiety/DepressionReported bypatient.Quality:symptoms improved Severity:able to maintain relationships; does not interfere with activities of daily living Duration:symptoms lasting over 2 weeks Context:major life stressors Associated Symptoms:denies homicidal ideations; no significant weight gain; no significant weight loss; mood good; no crying spells;anxiety;depressionNote s:Symptoms significantly improved CPAP and escitalopram.ObesityReported bypatient.Diagnosis Summary:diagnosis: impaired fasting glucose Context:no oral steroids Associated Symptoms:depression or anger symptoms;chronic illness Co-morbidities:obstructive sleep symptoms Lifestyle changes:exercising more Nutrition:whole grain foods;poor compliance with diet Physical Activity:no exercise Medication Education:understands potential side effects; understands administration; understands role of diet as primary therapyNotes:Was initially tolerating GLP1 agonist very well, but then developed GI symptoms in the beginning of Sep prompting d/c of 2mg dose. Has not resumed, GI symptoms have improved.Urinary FrequencyReported bypatient.Severity:mild Associated Symptoms:no constipation;abdominal painNotes:Pt with MG having stress incontinence symptoms also with recent cough. Also has myasthenia gravis. Had a cough since which just resolved, but around 11/02 developed acute right sided lower thoracic pain with a coughing fit which is persistent and limiting. Jenn her, [facility] 12/08/2023 15:24:59 04/06/20 24 text/htm l Anxiety/DepressionReported bypatient.Quality:symptoms improved Severity:able to maintain relationships; does not interfere with activities of daily living Duration:symptoms lasting over 2 weeks Context:major life stressors Associated Symptoms:denies homicidal ideations; no significant weight gain; no significant weight loss; mood good; no crying spells;anxiety;depressionNote s:Symptoms significantly improved CPAP and escitalopram.ObesityReported bypatient.Diagnosis Summary:diagnosis: impaired fasting glucose Context:no oral steroids Associated Symptoms:depression or anger symptoms;chronic illness Co-morbidities:obstructive sleep symptoms Lifestyle changes:exercising more Nutrition:whole grain foods;poor compliance with diet Physical Activity:no exercise Medication Education:understands potential side effects; understands administration; understands role of diet as primary therapyNotes:Was initially tolerating GLP1 agonist very well, but then developed GI symptoms in the beginning of Sep prompting d/c of 2mg dose. Has been on 0.5mg/week since her last visit and tolerating it well. Having trouble physically rebounding from her COVID and other infections last year. Spent most of the beginning of this year in bed but working. Having trouble ambulating and myesthenia gravis medications recently titrated by Dr. Obregon. Angelo Ring MD [address], [id number], [facility] 04/06/2024 13:28:51 07/08/20 24 text/htm l Hypertension F/UReported bypatient.Associated Symptoms:no dizziness; no lightheadedness; no chest pain; no shortness of breath; no palpitations; no edema; no calf pain with exertion Medications:taking medications as directed; no side effects from medicationObesityReported bypatient.Diagnosis Summary:diagnosis: impaired fasting glucose Context:no oral steroids Associated Symptoms:depression or anger symptoms;chronic illness Co-morbidities:obstructive sleep symptoms Lifestyle changes:exercising more Nutrition:whole grain foods;poor compliance with diet Physical Activity:no exercise Medication Education:understands potential side effects; understands administration; understands role of diet as primary therapyNotes:Was initially tolerating Ozempic very well, but then developed GI symptoms in the beginning of Sep 2023 prompting d/c of 2mg dose. Resumed at last visit but [facility] denied dose titration because she is not technically diabetic. Carries several other significant comorbidities. though. Nutritional counseling done in the past but still struggling to lose weight. Angelo Ring MD [address] [address], [place], [id number], [facility] 07/08/2024 13:31:09 09/07/20 24 text/htm l Generic HPI TemplateReported bypatient.Notes:Here for physical, Feels well on tirzapatide for 5 weeks. . Seeing dentist and ophtho regularly. KAYLI Thomas, [facility] 09/07/2024 13:37:21 OBGyn Episode No OBEpisode recorded.
[2024-10-29 13:17] LABS: MANUAL DIFF FLAG NO
[2024-10-29 13:36] LABS: Basophils Percent Auto 0.4 % (0-2); Eosinophils Absolute Auto 0.1 X10*3/uL (0.0-0.4); Eosinophils Percent Auto 1.6 % (0-4); Hematocrit 39.3 % (37.0-47.0); Hemoglobin 12.7 g/dl (12.0-16.0); Imm Gran Abs Auto 0.05 X10*3/uL (0.00-0.03); Imm Gran Pct Auto 0.6 % (0.0-0.4); Lymphocytes Absolute Auto 2.3 X10*3/uL (1.2-4.9); Lymphocytes Percent Auto 27.4 % (20-40); Mean Corpuscular HGB Conc 32.3 g/dl (31.0-35.0); Mean Corpuscular Hemoglobin 30.6 pg (27.0-33.0); Mean Corpuscular Volume 94.7 fL (80.0-98.0); Mean Platelet Volume 11.1 fL (9.4-12.3); Monocytes Absolute Auto 0.5 X10*3/uL (0.1-1.2); Monocytes Percent Auto 5.4 % (2-11); Neutrophils Absolute Auto 5.4 x10*3/uL (2.0-8.3); Neutrophils Percent Auto 64.6 % (45-73); Platelet Count 245 X10*3/uL (160-400); Red Blood Count 4.15 X10*6/uL (4.20-5.50); Red Cell Distribution Width 13.1 % (11.0-16.0); White Blood Count 8.4 X10*3/uL (4.8-10.8)
[2024-10-29 14:17] LABS: Alanine Aminotransferase 23 U/L (0-31); Albumin Level 4.1 g/dL (3.5-5.0); Alkaline Phosphatase 61 U/L (39-117); Anion Gap 14 (12-20); Aspartate Amino Transferase 22 U/L (5-31); Bilirubin Total 0.2 mg/dL (0.0-1.0); Blood Urea Nitrogen 14 mg/dL (9-16); Carbon Dioxide 26 mmol/L (22-29); Chloride 105 mmol/L (96-108); Estimated Glomerular Filt Rate > 60; Glucose Random 93 mg/dL (60-115); Potassium 4.2 mmol/L (3.3-5.1); Sodium 141 mmol/L (135-145); Total Protein 6.8 g/dL (6.5-8.0)
[2024-11-04 03:19] LABS: Mycophenolic Acid 1.5 mcg/mL (1.0-3.5); Mycophenolic Acid Glucuronide 33.5 mcg/mL (35.0-100.0)
== END 2024-10-29 12:59 | disposition home or self-care (01) ==
LOC: HO.LAB 12:58
PROVIDERS: PCP Pediatrics; Visit Provider Nurse Practitioner Family
DX: G70.00 Myasthenia gravis without (acute) exacerbation (principal)
CPT/HCPCS: 36415; 80053; 80180; 85025

== ENCOUNTER 2025-03-25 13:56 | Outpatient (REF) | payer OTHER, SELFPAY ==
--- OUTSIDE RECORDS SUMMARY | 2025-03-25 13:59 | XMS_ITS | Continuity of Care Document ---
Author Organization [facility] Address [address] [place] [address] Phone Care Team Providers Care Seo Team Lead Name Role Phone Axel VALDEZ, RVT, RPTERE, Ruddy Unavailable U navailable Allergies, Adverse Reactions, Alerts Substance Reaction Status Criticality PSEUDOEPHEDRINE HCL Active No Infor mation Sulfa (Sulfonamide Antibiotics) Active No Information oxycodone Active No Information Procedures Procedure Date Duplex Scan-extrem Veins; Uni/ CT & [place] A Endovenous Rf, 1st Vein- [place] & [place] 2024 Ultrason Guidan Needle Bx-rad- CT & [place] A Inj Sclerosing Solution; Sngl- CT & [place] A Duplex Scan-extrem Veins; Uni/ CT & [place] A Endovenous Laser, 1st Vein- CT & [place] Endovenous Laser, 1st Vein- CT & [place] Endovenous laser vein addon- CT & [place] Feb Ultrason Guidan Needle Bx-rad- CT & [place] A Inj Sclerosing Solution; Sngl- CT & [place] A Offic/outpt E&m Estab 5 Min Trial- Telem edicine CT & [place] Offic Cons New/estab Mod 40 Mi- CT & [place] Duplex Scan-extrem Veins; Comp- CT & [place] Advance Directives Directive Yes / No Effective Date File Name No Information Encounters Encounter Description Practice Location Reason(s) For Visit Diagnoses Date Provider Providers Copied on Encounter [facility] [place], [address] [place] [address] Dr Barrera [address], [id number], tel:[phone] [facility] [place] Encounter for follow-up examination after completed treatment for conditions other than malignant neoplasmPain in left leg 5 Axel VALDEZ RVT, AJITH Fox. [facility], [address], [place], [id number], [place]. tel:[phone] Referring Provider: Angelo Pinzon, [address] [place] [address] [place] [address], suite [facility], [place], [address]. tel:[phone] [facility] MD JEROME, [address] [place] [address] Dr Barrera [address], [place], [id number], [place] tel:[phone] [facility] [place] Varicose veins of left lower extremity with other complications 5 Axel VALDEZ RVT, RPVI Robert. [facility], [place] [address], [place], [id number], [place]. tel:[phone] Referring Provider: Angelo Pinzon, [address] [facility] 207 [facility], suite [facility], [place], [address]. tel:[phone] [facility] MD JEROME, [address] [place] [address] Dr Barrera [address], [place], [id number], [place] tel:[phone] [facility] [place] Encounter for follow-up examination after completed treatment for conditions other than malignant neoplasmVaric ose veins of right lower extremity with pain 5 Axel VALDEZ RVT, RPVI Robert. [facility], [address], [place], [id number], [place]. tel:[phone] Referring Provider: Angelo Pinzon, [address] [place] [address] [place] [address], [place], [address]. tel:[phone] [facility], [address] [place] [address] Dr Barrera [address] [facility] [place], [id number], [place] tel:[phone] [facility] - [place] - [place] Varicose veins of right lower extremity with other complications 5 Axel VALDEZ RVT, AJITH Fox. [address] [place] [address], [place], [id number], [place]. tel:[phone] Referring Provider: Angelo Pinzon, [address] [place] [address], [place], [address]. tel:[phone] [facility], [address] [place] [address] Dr Barrera [address] [facility] [place], [id number], [place] tel:[phone] [facility] - [place] No Information 5 Axel VALDEZ RVT, AJITH Fox. [address] [place] [address], [place], [id number], [place]. tel:[phone] [facility] MD JEROME, [address] [place] [address] Dr Barrera [address] [facility] [place], [id number], [place] tel:[phone] [facility] - [place] - [place] Chronic venous hypertension (idiopathic) with inflammation of right lower extremity 5 Axel VALDEZ RVT, AJITH Fox. [address] [place] [address], [place], [id number], [place]. tel:[phone] Referring Provider: Angelo Pinzon, [address] [place] [address], [place], [address]. tel:[phone] Offic/outpt E&m Estab 5 Min Trial- Telemedicine CT & [place] [facility] MD JEROME, [address] [place] [address] Dr Barrera [address] [facility] [address], [id number], [place] tel:[phone] [facility] [place] Localized edemaVenous insufficiency (chronic) (peripheral) 5 Jarocho Suh. [address] [facility], [address], [place], [id number], [place]. tel:[phone] Referring Provider: Angelo Pinzon, [address] [place] [address], [place] [address], [place], [address]. tel:[phone] Offic Cons New/estab Mod 40 Mi- [place] & [place] [facility], [address] [place] [address] Dr Barrera [address], [place], [id number], [place] tel:[phone] CVR - [facility] Chronic venous hypertension (idiopathic) with other complications of bilateral lower extremityLoca lized edema 5 Axel VALDEZ RVT, AJITH Fox. [address] [place] [address], [place], [id number], [place]. tel:[phone] Referring Provider: Angelo Pinzon, [facility] [address] [place] [address], [place], [address]. tel:[phone] [facility], [address] [place] [address] Dr Barrera [address], [place], [id number], [place] tel:[phone] CV - [facility] Chronic venous hypertension (idiopathic) with other complications of bilateral lower extremity 5 Axel VALDEZ RVT, AJITH Fox. [address] [place] [address], [place], [id number], [place]. tel:[phone] Referring Provider: Angelo Pinzon, [address] [facility] [address] [place] [address], [place] [address], [place], [address]. tel:[phone] Family History Family Member Type Diagnosis Age At Onset No Information Payers Payer name Insurance type Covered libertarian ID Doris nickerson(s) [facility] [id number] Social History Type Description Quantity Date Captured Comments Sex Female Smoking Status No Information Chief Complaint And Reason For Visit No Information Reason For Referral Reason For Referral No Information Plan Of Treatment Date Type Action Status Goal Diet education completed Referral Ordered: Weight management: Referral to physician timeframe: 3 Months (related to Body mass index (BMI) 50-59.9 , adult) ordered Appointment Joanna Elise BOOKED Appointment oJanna Elise BOOKED History Of Present Illness Encounter Date Complaint History Of Prese nt Illness No Information Functional Status Date Functional Assessmen t No Information Instructions Date Instruction Additional Infor mation Patient education booklet given Related to Localized edema Compression stocking usage as conservative measure Related to Localized edema Patient education booklet given Related to Chronic venous hypertension (idiopathic) with other complications of bilateral lower extremity Diet education Related to Body mass index (BMI) 50-59.9 , adult Giving Encouragement to exercise Related to Body mass index (BMI) 50-59.9 , adult Lifestyle education Related to B itzel mass index (BMI) 50-59.9 , adult Assessments Type Assessment Date No Information Patient Care Teams Name Effective Dates (start - stop) Status Members No Information
--- OUTSIDE RECORDS SUMMARY | 2025-03-25 14:00 | XMS_ITS | Data Portability ---
Author Organization [facility], Main Office Address [address] [facility] [address] [place] [id number] Care Team Providers Care Promotions Coordinator Name Role Phone ANGELO RING Primary Care Provider SVITLANA RUBIN OTHER AIYANA OBREGON Neurologist [facility] Music Video Director [facility] SCHEDULING DEPT Layout Operator [facility] Coagulating Operator IRINEO REYNA Vascular Surgeon Assessment No assessment recorded. Plan of Treatment Reminders Order Date Submit Date Provider Last Modified By Organization Details Last Modified Time Details Appointments URGENT 2024 12:45P Main Ring MD Not available Not available Not available FOLLOW UP 2024 10:00A Main Ring MD Not available Not available Not available Lab strep group A, DNA, swab 2024 025 RICK In-Office Order, Internal Use Only DO Not Attach Compendium DO Not Attach Compendium, Do Not Delete/merge, [id number] 02/16/2025 10:47:11 CMP, serum or plasma 2023 024 RICK [facility], [address] [place] [address], [address], [address], 09/20/2024 13:43:27 LDL, direct , serum 2023 024 RICK [facility] (Centralized Electronic Ordering - All Locations), Patient Can Go To The Location Of Their Choice, 12/07/2024 06:07:23 HbA1c (hemog lobin A1c), blood 2023 RICK [facility], [address], [address], [place], [address], 12/07/2024 06:07:24 T3, free, serum or plasma 2023 RICK [facility] (Centralized Electronic Ordering - All Locations), Patient Can Go To The Location Of Their Choice, 12/07/2024 06:07:26 unlist ed lab - TSH reflex to t4f 2023 RICK [facility] (Centralized Electronic Ordering - All Locations), Patient Can Go To The Location Of Their Choice, 12/07/2024 06:07:25 urinal ysis, comple te 2023 RICK [facility], [address], [address], [place], [address], 09/07/2024 09:46:59 unlist ed lab - TSH reflex to t4f 2023 RICK [facility] (Centralized Electronic Ordering - All Locations), Patient Can Go To The Location Of Their Choice, 07/09/2024 12:06:19 thyrop eroxid ase Ab, serum 2023 RICK [facility] (Centralized Electronic Ordering - All Locations), Patient Can Go To The Location Of Their Choice, 07/09/2024 12:06:20 T3, free, serum or plasma 2023 RICK [facility] (Centralized Electronic Ordering - All Locations), Patient Can Go To The Location Of Their Choice, 07/09/2024 12:06:20 HbA1c (hemog lobin A1c), blood 2023 RICK [facility] (Centralized Electronic Ordering - All Locations), Patient Can Go To The Location Of Their Choice, 07/09/2024 12:06:18 CMP, serum or plasma 2023 RICK [facility] (Centralized Electronic Ordering - All Locations), Patient Can Go To The Location Of Their Choice, [id number] 07/09/2024 12:06:15 urinal ysis, comple te 2023 RICK [facility] (Centralized Electronic Ordering - All Locations), Patient Can Go To The Location Of Their Choice, [id number] 07/09/2024 12:06:17 lipid panel, serum 2023 RICK [facility] (Centralized Electronic Ordering - All Locations), Patient Can Go To The Location Of Their Choice, [id number] 07/09/2024 12:06:18 Referral vein specia list referr al - rule out venous insuff icienc y in pt with leg pain/s wellin g 2024 025 RICK Reyna MD, [address] [facility], [address], [place], [address], 12/10/2024 08:50:04 gyneco logist referr al - Patien t to schedu le 2023 024 [email or web address] Not available 03/07/2025 10:30:46 gastro entero logist referr al - Needs colon cancer screen ing 2023 024 [email or web address] Bowen MD, [address] [place], [address], 10/11/2024 09:28:36 nutrit ionist /dieti jocelin referr al 2023 024 [facility], [address] [facility], [place], [address], 07/14/2024 10:04:01 Procedures colono scopy screen ing (PROC) 2023 024 richie [facility], [address], [place], [address], 09/07/2024 11:05:37 Surgeries None record ed. Imaging MAMMO, screen ing, bilate ral - Perfor m Diagno stic Mammog daniella and Breast Ultras ound if needed / Perfor m Ultras ound Guided Aspira tion and/or Breast Biopsy if warran rafia 2023 024 [facility], [address] [place], [address], 01/06/2025 09:45:37 Medication Orders Zepbou nd 12.5 mg/0.5 mL subcut aneous pen inject or 2024 025 [id number], [phone] [place], [address], 02/22/2025 15:29:27 ondans etron 4 mg disint egrati ng tablet 2024 025 [id number], [phone] [place], [address], 02/28/2025 05:01:00 Zepbou nd 10 mg/0.5 mL subcut aneous pen inject or 2024 025 [facility], [phone] [place], [address], 02/22/2025 15:29:13 Zepbou nd 5 mg/0.5 mL subcut aneous pen inject or 2023 024 [facility], [phone] [place], [address], 10/22/2024 15:00:19 Zepbou nd 2.5 mg/0.5 mL subcut aneous pen inject or 2023 024 [facility], [phone] [place], [address], 09/07/2024 09:25:20 Patient TargetsNo targets recorded. Patient Instructions Encounter Date Encounter Id Patient Instructions Last Modified By Organization Details Last Modified Time 07/08/2024 [id number] starting a weight loss plan: care instructions [...] Instructions [email or web address] Not available 07/08/2024 13:21:23 09/07/2024 [id number] depression treatment: care instructions awychowski Not available [...] blood pressure awychowski Not available 09/07/2024 09:46:40 12/07/2024 [id number] high blood pressure: care instructions awychowski Not available 12/07/2024 11:46:40 learning about high blood pressure awychowski Not available 12/07/2024 11:46:40 02/16/2025 [id number] food poisoning: care instructions jthabet Not available 02/16/2025 12:19:59 gastroenteritis: care instructions jthabet Not available 02/16/2025 12:19:59 oral rehydration: care instructions jthabet Not available 02/16/2025 10:40:27 dehydration: care instructions jthabet Not available 02/16/2025 10:40:27 To call or return for worsening or concerns jthabet Not available 02/16/2025 10:34:50 02/22/2025 [id number] depression treatment: care instructions awychowski Not available 02/22/2025 15:29:25 high blood pressure: care instructions awychowski Not available 02/22/2025 15:29:25 learning about high blood pressure awychowski Not available 02/22/2025 15:29:25 When You Want to Lose Weight: Care Instructions awychowski Not available 02/22/2025 15:29:25 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 Refer ral for Body mass index 40+ - severely obese Referring Physician: Family Celeste Murillo, Encounter Date: 07/08/2024 Layout Operator Referral for Sc reening for malignant neoplasm of cervix Patient to schedule Referring Physician: Family Celeste Murillo, Encounter Date: 09/07/2024 Instructional Assistant Referral for Screening for malignant neoplasm of colon Needs colon cancer screening Referring Physician: Family Celeste Mruillo, Encounter Date: 09/07/2024 Vein Specialist Referral for Pain in bilateral legs rule out venous insufficiency in pt with leg pain/swelling Referring Physician: Family Celeste Murillo, Encounter Date: 12/07/2024 Results Created Date Observation Date Name Description Value Unit Range Abnormal Flag Note LastModifiedBy Organization Detail LastModifiedTime 07/08/20 24 07/09/2024 COMP. METAB OLIC PANEL (14) glucose 125 mg/dL 70-99 above high normal Not Available [facility] ([facility]) [address] [place], [address], 07/09/2024 12:06:15 07/08/20 24 07/09/2024 COMP. METAB OLIC PANEL (14) BUN 10 mg/dL 6-24 normal Not Available [facility] ([facility]) [address] [place], [address], 07/09/2024 12:06:15 07/08/20 24 07/09/2024 COMP. METAB OLIC PANEL (14) creatinine 0.62 mg/dL 0.57-1 .00 normal Not Available [facility] ([facility]) [address] [place] [place], [address], 07/09/2024 12:06:15 07/08/20 24 07/09/2024 COMP. METAB OLIC PANEL (14) eGFR 112 mL/mi n/1.7 3 >59 normal Not Available [facility] ([facility]) [address] [facility], [place], [address], 07/09/2024 12:06:15 07/08/20 24 07/09/2024 COMP. METAB OLIC PANEL (14) BUN/creatini ne ratio 16 9-23 normal Not Available [facility] ([facility]) [address] [facility], [place], [address], 07/09/2024 12:06:15 07/08/20 24 07/09/2024 COMP. METAB OLIC PANEL (14) sodium 140 mmol/ L 134-14 4 normal Not Available [facility] ([facility]) [address] [place] [place], [address], 07/09/2024 12:06:15 07/08/20 24 07/09/2024 COMP. METAB OLIC PANEL (14) potassium 4.4 mmol/ L 3.5-5. 2 normal Not Available [facility] ([facility]) [address] [place] [place], [address], 07/09/2024 12:06:15 07/08/20 24 07/09/2024 COMP. METAB OLIC PANEL (14) chloride 103 mmol/ L 96-106 normal Not Available [facility] ([facility]) [address] [facility], [place], [address], 07/09/2024 12:06:15 07/08/20 24 07/09/2024 COMP. METAB OLIC PANEL (14) carbon dioxide, total 20 mmol/ L 20-29 normal Not Available [facility] ([facility]) [address] [place] [place], [address], 07/09/2024 12:06:15 07/08/20 24 07/09/2024 COMP. METAB OLIC PANEL (14) calcium 9.5 mg/dL 8.7-10 .2 normal Not Available [facility] ([facility]) [address] [place] [place], [address], 07/09/2024 12:06:15 07/08/20 24 07/09/2024 COMP. METAB OLIC PANEL (14) protein, total 6.9 g/dL 6.0-8. 5 normal Not Available [facility] ([facility]) [address] [place] [place], [address], 07/09/2024 12:06:15 07/08/20 24 07/09/2024 COMP. METAB OLIC PANEL (14) albumin 4.6 g/dL 3.9-4. 9 normal Not Available [facility] ([facility]) [address] [place] [place], [address], 07/09/2024 12:06:15 07/08/20 24 07/09/2024 COMP. METAB OLIC PANEL (14) globulin, total 2.3 g/dL 1.5-4. 5 Not Available [facility] ([facility]) [address] [place] [place], [address], 07/09/2024 12:06:15 07/08/20 24 07/09/2024 COMP. METAB OLIC PANEL (14) bilirubin, total <0.2 mg/dL 0.0-1. 2 Not Available [facility] ([facility]) [address] [place] [place], [address], 07/09/2024 12:06:15 07/08/20 24 07/09/2024 COMP. METAB OLIC PANEL (14) alkaline phosphatase 79 IU/L 44-121 normal Not Available [facility] ([facility]) [address] [place], [address], 07/09/2024 12:06:15 07/08/20 24 07/09/2024 COMP. METAB OLIC PANEL (14) AST (SGOT) 28 IU/L 0-40 normal Not Available [facility] ([facility]) [address] [place], [address], 07/09/2024 12:06:15 07/08/20 24 07/09/2024 COMP. METAB OLIC PANEL (14) ALT (SGPT) 45 IU/L 0-32 above high normal Not Available [facility] ([facility]) [address] [place] [place], [address], 07/09/2024 12:06:15 07/08/20 24 07/09/2024 URINA LYSIS , COMPL ETE specific gravity 1.017 1.005- 1.030 normal Not Available [facility] ([facility]) [address] [place] [place], [address], 07/09/2024 12:06:17 07/08/20 24 07/09/2024 URINA LYSIS , COMPL ETE pH 5.5 5.0-7. 5 normal Not Available [facility] ([facility]) [address] [place] [place], [address], 07/09/2024 12:06:17 07/08/20 24 07/09/2024 URINA LYSIS , COMPL ETE urine-color Yellow yellow Not Available [facility] ([facility]) [address] [place] [place], [address], 07/09/2024 12:06:17 07/08/20 24 07/09/2024 URINA LYSIS , COMPL ETE appearance Clear clear Not Available [facility] ([facility]) [address] [place] [place], [address], 07/09/2024 12:06:17 07/08/20 24 07/09/2024 URINA LYSIS , COMPL ETE WBC esterase 1+ negati ve abnormal Not Available [facility] ([facility]) [address] [facility], [place], [address], 07/09/2024 12:06:17 07/08/20 24 07/09/2024 URINA LYSIS , COMPL ETE protein Negati ve negati ve/tra ce Not Available [facility] ([facility]) [address] [place], [address], 07/09/2024 12:06:17 07/08/20 24 07/09/2024 URINA LYSIS , COMPL ETE glucose Negati ve negati ve Not Available [facility] ([facility]) [address] [place], [address], 07/09/2024 12:06:17 07/08/20 24 07/09/2024 URINA LYSIS , COMPL ETE ketones Negati ve negati ve Not Available [facility] ([facility]) [address] [facility], [place], [address], 07/09/2024 12:06:17 07/08/20 24 07/09/2024 URINA LYSIS , COMPL ETE occult blood Negati ve negati ve Not Available [facility] ([facility]) [address] [place], [address], 07/09/2024 12:06:17 07/08/20 24 07/09/2024 URINA LYSIS , COMPL ETE bilirubin Negati ve negati ve Not Available [facility] ([facility]) [address] [place], [address], 07/09/2024 12:06:17 07/08/20 24 07/09/2024 URINA LYSIS , COMPL ETE urobilinogen ,semi-qn 0.2 mg/dL 0.2-1. 0 normal Not Available [facility] ([facility]) [address] [facility], [place], [address], 07/09/2024 12:06:17 07/08/20 24 07/09/2024 URINA LYSIS , COMPL ETE nitrite, urine Negati ve negati ve Not Available [facility] ([facility]) [address] [facility], [place], [address], 07/09/2024 12:06:17 07/08/20 24 07/09/2024 URINA LYSIS , COMPL ETE microscopic examination See below: Micro scopi c was indic ated and was perfo rmed. Not Available [facility] ([facility]) [address] [facility], [place], [address], 07/09/2024 12:06:17 07/08/20 24 07/09/2024 URINA LYSIS , COMPL ETE WBC 0-5 /hpf 0 - 5 Not Available [facility] ([facility]) [address] [facility], [place], [address], 07/09/2024 12:06:17 07/08/20 24 07/09/2024 URINA LYSIS , COMPL ETE RBC None seen /hpf 0 - 2 Not Available [facility] ([facility]) [address] [facility], [place], [address], 07/09/2024 12:06:17 07/08/20 24 07/09/2024 URINA LYSIS , COMPL ETE epithelial cells (non renal) 0-10 /hpf 0 - 10 Not Available [facility] ([facility]) [address] [facility], [place], [address], 07/09/2024 12:06:17 07/08/20 24 07/09/2024 URINA LYSIS , COMPL ETE epithelial cells (renal) DYE HOUSE HELPER Not Available [facility] ([facility]) [address] [place], [address], 07/09/2024 12:06:17 07/08/20 24 07/09/2024 URINA LYSIS , COMPL ETE casts None seen /lpf none seen Not Available [facility] ([facility]) [address] [facility], [place], [address], 07/09/2024 12:06:17 07/08/20 24 07/09/2024 URINA LYSIS , COMPL ETE cast type DYE HOUSE HELPER Not Available [facility] ([facility]) [address] [facility], [place], [address], 07/09/2024 12:06:17 07/08/20 24 07/09/2024 URINA LYSIS , COMPL ETE crystals DYE HOUSE HELPER Not Available [facility] ([facility]) [address] [facility], [place], [address], 07/09/2024 12:06:17 07/08/20 24 07/09/2024 URINA LYSIS , COMPL ETE crystal type DYE HOUSE HELPER Not Available [facility] ([facility]) [address] [facility], [place], [address], 07/09/2024 12:06:17 07/08/20 24 07/09/2024 URINA LYSIS , COMPL ETE mucus threads DYE HOUSE HELPER Not Available [facility] ([facility]) [address] [facility], [place], [address], 07/09/2024 12:06:17 07/08/20 24 07/09/2024 URINA LYSIS , COMPL ETE bacteria Few none seen/f ew Not Available [facility] ([facility]) [address] [facility], [place], [address], 07/09/2024 12:06:17 07/08/20 24 07/09/2024 URINA LYSIS , COMPL ETE yeast 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 HELPER Not Available [facility] ([facility]) [address] [facility], [place], [address], 07/09/2024 12:06:17 07/08/20 24 07/09/2024 URINA LYSIS , COMPL ETE trichomonas DYE HOUSE HELPER Not Available [facility] ([facility]) [address] [place], [address], 07/09/2024 12:06:17 07/08/20 24 07/09/2024 URINA LYSIS , COMPL ETE comment DYE HOUSE HELPER Not Available [facility] ([facility]) [address] [place], [address], 07/09/2024 12:06:17 07/08/20 24 07/09/2024 URINA LYSIS , COMPL ETE microscopic examination DYE HOUSE HELPER Not Available [facility] ([facility]) [address] [place], [address], 07/09/2024 12:06:17 07/08/20 24 07/09/2024 LIPID PANEL cholesterol, total 206 mg/dL 100-19 9 above high normal Not Available [facility] ([facility]) [address] [place], [address], 07/09/2024 12:06:18 07/08/20 24 07/09/2024 LIPID PANEL triglyceride s 199 mg/dL 0-149 above high normal Not Available [facility] ([facility]) [address] [place], [address], 07/09/2024 12:06:18 07/08/20 24 07/09/2024 LIPID PANEL HDL cholesterol 59 mg/dL >39 normal Not Available [facility] ([facility]) [address] [place], [address], 07/09/2024 12:06:18 07/08/20 24 07/09/2024 LIPID PANEL VLDL cholesterol barry 34 mg/dL 5-40 Not Available [facility] ([facility]) [address] [place], [address], 07/09/2024 12:06:18 07/08/20 24 07/09/2024 LIPID PANEL LDL chol calc ([facility]) 113 mg/dL 0-99 above high normal Not Available [facility] ([facility]) [address] [place], [address], 07/09/2024 12:06:18 07/08/20 24 07/09/2024 LIPID PANEL LDL calc comment: 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 6 above high normal Predi abete s: 5.7 - 6.4 Diabe rema: >6.4 Glyce margarito contr ol for adult s with diabe rema: <7.0 Not Available [facility] ([facility]) [address] [place], [address], 07/09/2024 12:06:18 07/08/20 24 07/09/2024 TSH REFLE X TO T4F TSH 1.400 uIU/m L 0.450- 4.500 normal Not Available [facility] ([facility]) [address] [place], [address], 07/09/2024 12:06:19 07/08/20 24 07/09/2024 THYRO ID ANTIB ODIES thyroid peroxidase (tpo) Ab <9 IU/mL 0-34 Not Available [facility] ([facility]) [address] [place], [address], 07/09/2024 12:06:20 07/08/20 24 07/09/2024 THYRO ID [...] at very low level s. The assay manusteven actur er has found that four perce nt of indiv idual s witho ut evide nce of thyro id disea se or autoi mmuni ty will have posit kathy TgAb level s up to 4 IU/mL . Not Available [facility] ([facility]) [address] [place], [address], 07/09/2024 12:06:20 07/08/20 24 07/09/2024 TRIIO DOTHY ANGEL E (T3), FREE triiodothyro nine (T3), free 3.8 pg/mL 2.0-4. 4 normal Not Available [facility] ([facility]) [address] [place], [address], 07/09/2024 12:06:20 12/03/19 25 12/04/2024 COMP. METAB OLIC PANEL (14) glucose 133 mg/dL 70-99 above high normal Not Available [facility] ([facility]) [address] [place], [address], 12/07/2024 06:07:22 12/03/19 25 12/04/2024 COMP. METAB OLIC PANEL (14) BUN 12 mg/dL 6-24 normal Not Available [facility] ([facility]) [address] [place], [address], 12/07/2024 06:07:22 12/03/19 25 12/04/2024 COMP. METAB OLIC PANEL (14) creatinine 0.77 mg/dL 0.57-1 .00 normal Not Available [facility] ([facility]) [address] [place], [address], 12/07/2024 06:07:22 12/03/19 25 12/04/2024 COMP. METAB OLIC PANEL (14) eGFR 97 mL/mi n/1.7 3 >59 normal Not Available [facility] ([facility]) [address] [place], [address], 12/07/2024 06:07:22 12/03/19 25 12/04/2024 COMP. METAB OLIC PANEL (14) BUN/creatini ne ratio 16 9-23 normal Not Available [facility] ([facility]) [address] [place], [address], 12/07/2024 06:07:22 12/03/19 25 12/04/2024 COMP. METAB OLIC PANEL (14) sodium 143 mmol/ L 134-14 4 normal Not Available [facility] ([facility]) [address] [place], [address], 12/07/2024 06:07:22 12/03/19 25 12/04/2024 COMP. METAB OLIC PANEL (14) potassium 4.6 mmol/ L 3.5-5. 2 normal Not Available [facility] ([facility]) [address] [place], [address], 12/07/2024 06:07:22 12/03/19 25 12/04/2024 COMP. METAB OLIC PANEL (14) chloride 106 mmol/ L 96-106 normal Not Available [facility] ([facility]) [address] [place], [address], 12/07/2024 06:07:22 12/03/19 25 12/04/2024 COMP. METAB OLIC PANEL (14) carbon dioxide, total 16 mmol/ L 20-29 below low normal Not Available [facility] ([facility]) [address] [place], [address], 12/07/2024 06:07:22 12/03/19 25 12/04/2024 COMP. METAB OLIC PANEL (14) calcium 10.1 mg/dL 8.7-10 .2 normal Not Available [facility] ([facility]) [address] [place], [address], 12/07/2024 06:07:22 12/03/19 25 12/04/2024 COMP. METAB OLIC PANEL (14) protein, total 7.2 g/dL 6.0-8. 5 normal Not Available [facility] ([facility]) [address] [place], [address], 12/07/2024 06:07:22 12/03/19 25 12/04/2024 COMP. METAB OLIC PANEL (14) albumin 4.8 g/dL 3.9-4. 9 normal Not Available [facility] ([facility]) [address] [place], [address], 12/07/2024 06:07:22 12/03/19 25 12/04/2024 COMP. METAB OLIC PANEL (14) globulin, total 2.4 g/dL 1.5-4. 5 Not Available [facility] ([facility]) [address] [place], [address], 12/07/2024 06:07:22 12/03/19 25 12/04/2024 COMP. METAB OLIC PANEL (14) bilirubin, total <0.2 mg/dL 0.0-1. 2 Not Available [facility] ([facility]) [address] [place], [address], 12/07/2024 06:07:22 12/03/19 25 12/04/2024 COMP. METAB OLIC PANEL (14) alkaline phosphatase 69 IU/L 44-121 normal Not Available [facility] ([facility]) [address] [place], [address], 12/07/2024 06:07:22 12/03/19 25 12/04/2024 COMP. METAB OLIC PANEL (14) AST (SGOT) 26 IU/L 0-40 normal Not Available [facility] ([facility]) [address] [place], [address], 12/07/2024 06:07:22 12/03/19 25 12/04/2024 COMP. METAB OLIC PANEL (14) ALT (SGPT) 33 IU/L 0-32 above high normal Not Available [facility] ([facility]) [address] [place], [address], 12/07/2024 06:07:22 12/03/19 25 12/04/2024 LDL RUTH STERO L (DIRE CT) LDL chol. 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 6 above high normal Predi abete s: 5.7 - 6.4 Diabe rema: >6.4 Glyce margarito contr ol for adult s with diabe rema: <7.0 Not Available [facility] ([facility]) [address] [place], [address], 12/07/2024 06:07:24 12/03/1912/04/2024 TSH REFLE X TO T4F TSH 0.715 uIU/m L 0.450- 4.500 normal Not Available [facility] ([facility]) [address] [place], [address], 12/07/2024 06:07:25 12/03/1912/04/2024 TRIIO DOTHY ANGEL E (T3), FREE triiodothyro nine (T3), free 4.2 pg/mL 2.0-4. 4 normal Not Available [facility] ([facility]) [address] [place], [address], 12/07/2024 06:07:26 12/03/19 25 12/07/[address] PROBL EM request problem COMMEN T Test not perfo rmed. Patie nt was unabl e to provi de a self- colle cted speci men for the reque sted testi ng. The follo wing test( s) were not perfo rmed: TEST: 19500 2 Urina lysis , Compl ete Not Available [facility] ([facility]) [address] [facility], [place], [address], 12/07/2024 06:07:27 02/17/20 25 02/16/2025 strep group A, DNA, swab ID NOW Strep A 2 (rapid molecular test) negati ve Not Available In-Office Order Internal Use Only DO Not Attach Compendium DO Not Attach Compendium, Do Not Delete/merge, [id number] 02/16/2025 10:34:12 12/10/19 25 12/09/2024 US, kelly x, samir s, oziel mity, compl ete No observ ation record ed. [facility] [address], [place], [address], 12/14/2024 07:33:11 01/06/20 25 01/06/2025 MAMMO , scree loli, digit al, bilat eral PROCED URE: MM Digita l Mammo Screen ing INDICA TION: Screen ing. No known palpab le abnorm alitie s. COMPAR EVELYN: Dating back to 022 TECHNI QUE: Full-f ield digita l [...] 1 (Negat kathy) Lay letter mailed to bg harvey WSN: [id number] Orderi Physic mauro: Angelo Hernandez ed By: Zain Camacho MD Dictat ed Date/T jay jay: 9:40 am Review ed By: Zain Camacho MD Signed By: Zain Camacho MD Signed Date/T jay jay: 9:40 am Transc ribed By: CSB Transc riptio n Date/T jay jay: 9:40 am Birads : Kasandradanielito harvey Class: Outpat ient [email or web address] [facility] (Outpt Imaging) [address] [place], [address], 01/06/2025 11:27:56 01/06/2001/06/2025 MAMMO , scree loli, bilat eral No observ ation record ed. [email or web address] [facility] [address] [place], [address], 01/06/2025 11:28:21 Result Notes None recorded. Problems Name Problem SNOMED Code Status Onset Date Resolution Date Notes Provider Name and Address Organization Details Recorded Time Anaphyla xis 95020283 Completed 201305/31/2014 STORY: UNKNOWN CAUSE OCT 2012; RECORDED 02/25/20 14 8:52AM BY ANGELO Siegel MD, ANNOTATI ON/ADDEN DUM Angelo Ring MD [address], [place], [address] , [facility] 6 21:33:38 Anxiety state 367326370 Completed 201303/28/2016 Angelo Ring MD [address], [place], [address] , [facility] 6 21:33:38 Patient status finding [id number] Completed 201205/31/2014 RECORDED 05/21/20 13 2:50PM BY GANESH HOPE MA, ANNOTATI ON/ADDEN DUM Angelo Ring MD [address], [place], [address] , [facility] 6 21:33:38 Autoimmu ne disease 88064564 Completed 201305/31/2014 RECORDED 02/25/20 14 8:52AM BY ANGELO Siegel MD, ANNOTATI ON/ADDEN DUM Angelo Ring MD [address], [place], [address] , [facility] 6 21:33:38 Hashimot o thyroidi tis 79275034 Active 2013 Not Available [facility] 3 13:43:23 Screenin g for malignan t neoplasm of cervix Completed 201305/31/2014 RECORDED 02/25/20 14 8:30AM BY CASSIA MCPHERSON MA, ANNOTATI ON/ADDEN DUM Angelo Ring MD [address], [place], [address] , [facility] 6 21:33:38 Chest pain 03072413 Completed 201205/31/2014 IMPRESSI ON: SYMPTOMS C/W EIA POSSIBLE ANXIETY COMPONEN T. WILL TRY PRE EXERCISE MDI. ADVISED TO CALL IF PERSISTA NT/WORSE .; RECORDED 05/21/20 13 2:50PM BY GANESH HOPE MA, ANNOTATI ON/ADDEN DUM Angelo Rign MD [address], [place], [address] , [facility] 6 21:33:38 Cough 71272146 Completed 201312/09/2014 IMPRESSI ON: LUNGS ARE CLEAR, ALREADY ON AUGMENTI N FOR SINUSITI S WILL COMPLETE COURSE, REC. MUCOLYTI CS/HYDRA TION; RECORDED 03/03/20 14 11:53AM BY LIZZETH PATHAK PA-C, OFFICE VISIT Angelo Ring MD [address], [place], [address] , [facility] 6 21:33:38 Depressi ve disorder 05378887 Completed 201303/28/2016 Angelo Ring MD [address], [place], [address] , [facility] 6 21:33:38 Recurren t major depressi ve episodes , in full remissio n Completed 201311/05/2019 Removal Reason: negative Angelo Ring MD [address], [place], [address] , [facility] 9 09:34:27 Lyme disease 91579852 Completed 201305/31/2014 IMPRESSI ON: SXS CONSISTE NT WITH EARLY LYME, WILL TREAT. 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 I DO NOT SEE ANY BELLS PALSY AT THIS POINT. REASSURE Shine ZARATE THAT SHE HAS NO DROOP; RECORDED 02/25/20 14 8:52AM BY ANGELO Siegel MD, ANNOTATI ON/ADDEN DUM Angelo Ring MD [address], [place], [address] , [facility] 6 21:33:38 Malaise and fatigue 633184803 Completed 201205/31/2014 IMPRESSI ON: COUPLED TO CHEST [...] ON/ADDEN DUM Angelo Ring MD [address] [facility] [address], [place], [address] , [facility] 6 21:33:38 Influenz a vaccine needed [id number] 06 Completed 201205/31/2014 RECORDED 07/31/20 13 10:03AM BY RAMYA BENTON I, NURSE VISIT Angelo Ring MD [address] [address], [place], [address] , [facility] 6 21:33:38 Adult health examinat ion Completed 201305/31/2014 IMPRESSI ON: IMMUNIZA TION STATUS UTD WILL SCREEN BASED ON RISK FACTORS. REGULAR DENTAL CARE AND SEATBELT USE ADVISED. DISTRACT ED DRIVING DISCUSSE D. CERVICAL CANCER SCREENIN G UTD. ADVANCE DIRECTIV ES DISCUSSDanica D AND IN PLACE.; RECORDED 03/03/20 14 9:43AM BY CALEB HENRY MA, ANNOTATI ON/PINEDA Ring MD [address] [address], [place], [address] , [facility] 6 21:33:38 Celiac disease 454481319 Completed 201304/02/2017 STORY: BLOOD TESTS NEGATIVE FOR CELIAC Angelo Ring MD [address] [address], [place], [address] , [facility] 7 10:21:10 History of infectio us disease 200802818 Completed 201205/31/2014 RECORDED 01/28/20 13 4:18PM BY CASSIA MCPHERSON MA, ANNOTATI ON/PINEDA Ring MD [address] [address], [place], [address] , [facility] 6 21:33:38 Obesity 839953248 Completed 201304/02/2017 IMPRESSI ON: POTENTIA L ADVERSE HEALTH CONSEQUE NCES DISCUSSDanica D. INCREASE D PHYSICAL ACTIVITY AND APPROPRI ATWE DIETARY CHANGES ADVISED. ; RECORDED 03/03/20 14 9:43AM BY CALEB HENRY MA, OFFICE VISIT Cherie Hannah PA-C [address] [address], [place], [address] , [facility] 3 15:22:51 Panic disorder without agorapho litzy 28874835 Completed 201305/31/2014 RECORDED 02/25/20 14 8:52AM BY ANGELO Siegel MD, ANNOTATI ON/PINEDA Ring MD [address] [address], [place], [address] , [facility] 6 21:33:38 Immuniza tion refused Completed 201205/31/2014 RECORDED 01/28/20 13 4:18PM BY CASSIA MCPHERSON MA, ANNOTATI ON/PINEDA Ring MD [address] [address], [place], [address] , [facility] 6 21:33:38 Chronic sinusiti s 22599188 Completed 201305/31/2014 IMPRESSI ON: C/W POST VIRAL SECONDAR Y BACTERIA L PROCESS. CALL INB/WORS E.; RECORDED 03/03/20 14 9:43AM BY CALEB HENRY MA, ANNOTATI ON/PINEDA Ring MD [address] [address], [place], [address] , [facility] 6 21:33:38 Tachycar effie 6431943 Completed 201205/31/2014 IMPRESSI ON: WILL SCREEN FOR CONDUCTI ON ABNORMAL ITY.; RECORDED 05/21/20 13 2:50PM BY GANESH HOPE MA, ANNOTATI ON/PINEDA Ring MD [address] [address], [place], [address] , [facility] 6 21:33:38 Vitamin D deficien cy 22382940 Active 2013 Not Available [facility] 3 13:43:23 Anaphyla xis 94343950 Completed 201306/27/2014 STORY: UNKNOWN CAUSE OCT 2012; RECORDED 02/25/20 14 8:52AM BY ANGELO Siegel MD, ANNOTATI ON/ADDEN DUM Angelo Ring MD [address], [place], [address] , [facility] 6 21:33:38 Patient status finding [id number] Completed 201206/27/2014 RECORDED 05/21/20 13 2:50PM BY GANESH HOPE MA, ANNOTATI ON/ADDEN DUM Angelo Ring MD [address], [place], [address] , [facility] 6 21:33:38 Autoimmu ne disease 88386158 Completed 201306/27/2014 RECORDED 02/25/20 14 8:52AM BY ANGELO Siegel MD, ANNOTATI ON/EN DUM Angelo Ring MD [address], [place], [address] , [facility] 6 21:33:38 Screenin g for malignan t neoplasm of cervix Completed 201306/27/2014 RECORDED 02/25/20 14 8:30AM BY CASSIA MCPHERSON MA, ANNOTATI ON/ADDEN DUM Angelo Ring MD [address], [place], [address] , [facility] 6 21:33:38 Chest pain 33035767 Completed 201206/27/2014 IMPRESSI ON: SYMPTOMS C/W EIA POSSIBLE ANXIETY COMPONEN T. WILL TRY PRE EXERCISE MDI. ADVISED TO CALL IF PERSISTA NT/WORSE .; RECORDED 05/21/20 13 2:50PM BY GANESH HOPE MA, ANNOTATI ON/ADDEN DUM Angelo Ring MD [address], [place], [address] , [facility] 6 21:33:38 Lyme disease 60228824 Completed 201306/27/2014 IMPRESSI ON: SXS CONSISTE NT WITH EARLY LYME, WILL TREAT. 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 I DO NOT SEE ANY BELLS PALSY AT THIS POINT. REASSURE Shine ZARATE THAT SHE HAS NO DROOP; RECORDED 02/25/20 14 8:52AM BY ANGELO Siegel MD, ANNOTATI ON/PINEDA Ring MD [address], [place], [address] , [facility] 6 21:33:38 Malaise and fatigue 090189196 Completed 201206/27/2014 IMPRESSI ON: COUPLED TO CHEST [...] CASSIA MCPHERSON MA, ANNOTATI ON/PINEDA Ring MD [address] [address], [place], [address] , [facility] 6 21:33:38 Influenz a vaccine needed [id number] 06 Completed 201206/27/2014 RECORDED 07/31/20 13 10:03AM BY RAMYA BENTON I, NURSE VISIT Angelo Ring MD [address], [place], [address] , [facility] 6 21:33:38 Adult health examinat ion Completed 201306/27/2014 IMPRESSI ON: IMMUNIZA TION STATUS UTD WILL SCREEN BASED ON RISK FACTORS. REGULAR DENTAL CARE AND SEATBELT USE ADVISED. DISTRACT ED DRIVING [place]. CERVICAL CANCER SCREENIN G UTD. ADVANCE DIRECTIV ES CHRISTIE D AND IN PLACE.; RECORDED 03/03/20 14 9:43AM BY CALEB HENRY MA, ANNOTATI ON/PINEDA Ring MD [address] [address], [place], [address] , [facility] 6 21:33:38 History of infectio us disease 732326945 Completed 201206/27/2014 RECORDED 01/28/20 13 4:18PM BY CASSIA MCPHERSON MA, ANNOTATI ON/PINEDA Ring MD [address] [address], [place], [address] , [facility] 6 21:33:38 Panic disorder without agorapho litzy 99523339 Completed 201306/27/2014 RECORDED 02/25/20 14 8:52AM BY ANGELO Siegel MD, ANNOTVICKY ON/PINEDA Ring MD [address] [address], [place], [address] , [facility] 6 21:33:38 Immuniza tion refused Completed 201206/27/2014 RECORDED 01/28/20 13 4:18PM BY CASSIA MCPHERSON MA, ANNOTATI ON/PINEDA Ring MD [address] [address], [place], [address] , [facility] 6 21:33:38 Chronic sinusiti s 41673768 Completed 201306/27/2014 IMPRESSI ON: C/W POST VIRAL SECONDAR Y BACTERIA L PROCESS. CALL INB/WORS E.; RECORDED 03/03/20 14 9:43AM BY CALEB HENRY MA, ANNOTATI ON/PINEDA Ring MD [address] [address], [place], [address] , [facility] 6 21:33:38 Tachycar effie 4321400 Completed 201206/27/2014 IMPRESSI ON: WILL SCREEN FOR CONDUCTI ON ABNORMAL ITY.; RECORDED 05/21/20 13 2:50PM BY GANESH HOPE MA, ANNOTATI ON/ADDEN DUM Angelo Ring MD [address], [place], [address] , [facility] 6 21:33:38 Divertic ulitis of colon 306594155 Completed 201404/02/2017 Angelo Ring MD [address], [place], [address] , [facility] 7 10:20:23 Body mass index 30+ - obesity 890956391 Completed 07/06/2020 Cassia Mcpherson MA null, [facility] 0 15:05:27 Pain of multiple joints 58182828 Active Not Available [facility] 3 13:43:23 Mixed anxiety and depressi ve disorder 333966426 Completed 04/02/2017 Angeol Ring MD [address], [place], [address] , [facility] 7 10:20:46 Abdomina l pain 47163146 Completed 03/28/2016 Angelo Ring MD [address], [place], [address] , [facility] 6 21:33:38 Divertic ular disease 578940934 Active s/p partial colectom y Not Available [facility] 3 13:43:23 Diplopia 74293630 Active Not Available [facility] 3 13:43:23 Floaters in visual field 816383629 Completed 03/28/2016 Angelo Ring MD [address], [place], [address] , [facility] 6 21:33:38 Headache 47871011 Completed 04/02/2017 Angelo Ring MD [address], [place], [address] , [facility] 7 10:20:58 Myasthen ia gravis 65138871 Active Not Available [facility] 3 13:43:24 Acne 29203899 Completed 04/02/2017 Angelo Ring MD [address], [place], [address] , [facility] 7 10:20:27 Hypergly cemia 44411284 Completed 04/02/2017 Angelo Ring MD [address], [place], [address] , [facility] 7 10:21:18 Vitiligo 07031386 Active Not Available [facility] 3 13:43:23 Autoimmu ne polyendo crinopat hy 82775448 Active Not Available [facility] 3 13:43:23 Macrocyt osis 841459947 Active 2018 Not Available [facility] 3 13:43:23 Irritabl e bowel syndrome 55481784 Active 2018 Not Available [facility] 3 13:43:23 Recurren t major depressi on in partial remissio n 46993718 Active 2018 Not Available [facility] 3 13:43:23 Essentia l hyperten lucia 75919284 Active 2019 Not Available [facility] 3 13:43:24 Anti-nuc lear factor detected 285356862 Active 2020 Not Available [facility] 3 13:43:23 Herpes zoster 5140974 Active 2020 Not Available [facility] 3 13:43:23 History of SARS-CoV -2 75825389719 3522376 Active 2021 Not Available [facility] 3 13:43:23 Tinea pedis 8511990 Active 2021 Not Available [facility] 3 13:43:24 Generali zed anxiety disorder 42830467 Active 2021 Not Available [facility] 3 13:43:23 Prediabe rema 477242357 Active 2022 Not Available [facility] 3 13:43:24 Hyperlip idemia 24424710 Active 2022 Not Available [facility] 3 13:43:23 Pain in right heel 57973736183 79659 Completed 202208/05/2023 Angelo Ring MD [address], [place], [address] , [facility] 3 13:48:40 Candidia sis of vagina 98219907 Completed 202208/05/2023 Angelo Ring MD [address], [place], [address] , [facility] 3 13:35:30 Snoring 27401780 Completed 202208/05/2023 Angelo Ring MD [address], [place], [address] , [facility] 3 13:48:55 Obstruct kathy sleep apnea of adult 81645651107 03 Active 2022 Not Available [facility] 3 13:43:23 Morbid obesity 478213293 Active 2022 Not Available [facility] 3 13:43:23 Family history of malignan t melanoma 174073593 Active 2023 Angelo Ring MD [address], [place], [address] , [facility] 4 17:18:08 Body mass index 40+ - severely obese 227867150 Active 2023 Angelo Ring MD [address], [place], [address] , [facility] 4 09:39:33 Venous insuffic iency of leg 244742003 Active 2024 Angelo Ring MD [address], [place], [address] , [facility] 5 14:24:45 Acute pharyngi tis 564879014 Completed 202402/22/2025 Angelo Ring MD [address], [place], [address] , [facility] 5 15:16:34 Moderate dehydrat ion 52607241043 05 Completed 202402/22/2025 Angelo Ring MD [address], [place], [address] , [facility] 5 15:16:25 Food-bor ne gastroen teritis 446024256 Completed 202402/22/2025 Angelo Ring MD [address], [place], [address] , [facility] 5 15:16:36 Problem Notes None recorded. Procedures Surgical History Date Name Laterality Status Provider Name and Address Organization Details Recorded Time 01/06/20 25 Most Recent Mammogram completed Lizeth Herrera [facility] 01/06/2025 11:27:53 12/22/19 24 Mammogram both breasts completed Lizzeth Jack MA [facility] 09/07/2024 09:03:27 12/20/19 23 Mammogram both breasts completed Lizzeth Jack MA [facility] 08/05/2023 13:06:43 12/05/19 22 Mammogram Screening completed Liyah Sheikh [facility] 12/28/2021 14:01:53 03/19/20 20 Date of Last Pap Smear completed Cassia Mcpherson MA [facility] 07/06/2020 15:07:41 06/21/20 18 Cholecystectomy completed Angelo Ring MD [address], [place], [address], [facility] 06/23/2018 10:10:03 12/26/19 16 Gastrointestinal Surgery completed Angelo Ring MD [address], [place], [address], [facility] 12/27/2015 08:41:03 03/15/20 11 Date of Last Colonoscopy completed Cassia Mcpherson MA [facility] 03/28/2016 08:32:59 03/15/20 11 Colonoscopy completed Cassia Mcpherson MA [facility] 03/28/2016 08:33:00 Dxa bone density study completed [facility] 04/02/2017 09:39:01 Imaging Results Imaging Date Name Status LastModified by Organiz ation Details LastModified Time 12/09/2024 US, duplex, venous, extremity, complete completed [facility] [address], [place], [address], 12/14/2024 07:33:11 01/06/2025 MAMMO, screening, digital, bilateral completed [address] (Outpt Imaging) [address] [place], [address], 01/06/2025 11:27:56 01/06/2025 MAMMO, screening, bilateral completed [address] [facility] [address] [facility], [place], [address], 01/06/2025 11:28:21 Procedure Notes None recorded. Medical Equipment None Reported. Allergies Allergen ID Allergen Name Allergen Category Reaction Reaction Severity Criticality Documentation Date Start Date Code Code System Note Provider Name and Address Organization Details Recorded Time 41725 Substance with sulfonami de structure and antibacte rial mechanism of action (substanc e) medicatio n hives moderate Not available 12/09/20142013 08351 5437 SNOMED REACT ION: AGNES her, [facility] 5 11:01:46 11709 acetamino phen / oxycodone medicatio n other mild Not available 12/09/2014 73039 3 RxNorm agita tion Angelo Ring MD [address], [facility] [place], [address], [facility] 5 08:52:25 44208 Dilaudid medicatio n rash mild Not available 01/03/20162015 95768 3 RxNorm hives ,rash , itchi ness, repor rafia from pt ED visit Flori Springer taina, [facility] 6 08:13:55 18699 erythromy morro medicatio n other moderate Not available 03/28/20162015 4053 RxNorm MG flare Angelo Ring MD [address], [place], [address], [facility] 6 09:06:27 35837 amoxicill in medicatio n abdominal pain severe Not available 02/01/20192018 723 RxNorm CASEY Anderson, [facility] 9 09:36:51 58953 Bactrim medicatio n Not available Not available Not available 02/28/2020 90713 9 RxNorm Gita Money taina, [facility] 0 10:20:34 85517 cephalexi n medicatio n rash moderate Not available 12/24/2022 2231 RxNorm KAYLI Hollingsworth, [facility] 3 14:38:30 91455 bupropion Not available other mild Not available 12/24/2022 56940 RxNorm eleva rafia BP Not Available [facility] 3 17:58:18 4228 clindamyc in hydrochlo ride medicatio n hives moderate Not available 05/31/20142013 55850 RxNorm KAYLI Baron, [facility] 6 08:28:39 4229 Paxil medicatio n Not available Not available Not available 05/31/20142013 61128 8 RxNorm REACT ION: JOVANNA JASEDANNA Angelo Ring MD [address], [place], [address], [facility] 7 10:12:34 Medications Name Sig Start Date [...] ine 5 mcg tablet TAKE 1 TABLET TWICE A DAY BY ORAL ROUTE FOR 90 DAYS. active Not Available Not Available No t [...] TAKE 1 TABLET BY MOUTH EVERY DAY IN THE MORNING active Not Available Not Available No t Available mycopheno late mofetil 500 mg tablet TAKE 1 TABLET ORALLY 2 TIMES A DAY FOR 30 DAYS active Not [...] Not Available Not Available Not Available econazole nitrate 1 % topical cream APPLY TWICE DAILY [...] Available pyridosti gmine bromide 60 mg tablet TAKE 1/2 TABLET BY MOUTH 6 TIMES A DAY, MAY TAKE EXTRA 1-2 DOSES PER DAY NEEDED FOR DIPLOPIA active Not Available Not Available No t [...] 1 TABLET BY MOUTH TWICE A DAY (MAKE SURE TO SPACE AT LEAST 6 HOURS APART) active Not Available Not Available No t [...] mg disintegr ating tablet Place 1 tablet 3 times a day by translin gual route as needed for 5 days. 02/28 completed Not Available Not Available Not Available mometason e 0.1 % topical cream APPLY [...] TAKE 1 TABLET BY MOUTH EVERY DAY 2024 active Not Available Not Available Not Avai lable atomoxeti ne 40 mg capsule TAKE 1 [...] Relief 50 mcg/actua tion nasal spray,[employer] [place] 1 spray every day by intranas al [...] Not Available Not Available Not Available Zepbound 10 mg/0.5 mL subcutane ous pen injector INJECT 10 MG SUBCUTAN EOUSLY ONE TIME PER WEEK FOR 28 DAYS 02/22 completed Not Available Not Available Not Available Zepbound 5 mg/0.5 mL subcutane ous pen injector INJECT 5 MG SUBCUTAN EOUSLY WEEKLY FOR 28 DAYS 10/22 completed Not Available Not Available Not Available Zepbound 2.5 mg/0.5 mL subcutane ous pen injector INJECT 2.5 MG SUBCUTAN EOUSLY WEEKLY FOR 28 DAYS PA DENIED 09/07 completed Not Available Not Available Not Available Zepbound 12.5 mg/0.5 mL subcutane ous pen injector INJECT 12.5 MG SUBCUTAN EOUSLY WEEKLY active Not Available Not Available No t Available Zepbound 7.5 mg/0.5 mL subcutane ous pen injector Inject 7.5 mg every week by subcutan eous route for 28 days. 12/07 completed Not Available Not Available Not Available Vitals Date Recorded Body height Body mass index (BMI) Body weight Heart rate Oxygen saturation Oxygen saturation in Arterial blood by Pulse oximetry Body temperature Systolic blood pressure Diastolic blood pressure Provider Name and Address Organization Details Last Updated DateTime 4 156.85 cm 52.8 kg/m2 803378. 22 g 88 /min 98 % 98 % 98.2 [degF] 125 mm[Hg] 83 mm[Hg] Kelly Ramirez LPN [facility] 4 12:48:01 Date Recorded Body height Body mass index (BMI) Body weight Heart rate Oxygen saturation Oxygen saturation in Arterial blood by Pulse oximetry Body temperature Systolic blood pressure Diastolic blood pressure Provider Name and Address Organization Details Last Updated DateTime 4 156.85 cm 50.8 kg/m2 027050 g 99 /min 96 % 96 % 98.1 [degF] 118 mm[Hg] 81 mm[Hg] Lizzeth Forest [facility] [place] 4 09:00:49 Date Recorded Body height Body mass index (BMI) Body weight Heart rate Oxygen saturation Oxygen saturation in Arterial blood by Pulse oximetry Body temperature Systolic blood pressure Diastolic blood pressure Provider Name and Address Organization Details Last Updated DateTime 5 156.85 cm 51.9 kg/m2 658317. 86 g 96 /min 95 % 95 % 98.4 [degF] 130 mm[Hg] 82 mm[Hg] Lizzeth [facility] 5 10:58:49 Date Recorded Body height Body mass index (BMI) Body weight Heart rate Oxygen saturation Oxygen saturation in Arterial blood by Pulse oximetry Body temperature Systolic blood pressure Diastolic blood pressure Provider Name and Address Organization Details Last Updated DateTime 5 156.85 cm 49.2 kg/m2 077231. 16 g 107 /min 97 % 97 % 98.2 [degF] 118 mm[Hg] 84 mm[Hg] Waqas atkins MA [facility] 5 10:17:47 Date Recorded Body height Body mass index (BMI) Body weight Heart rate Oxygen saturation Oxygen saturation in Arterial blood by Pulse oximetry Body temperature Systolic blood pressure Diastolic blood pressure Provider Name and Address Organization Details Last Updated DateTime 5 156.85 cm 50.9 kg/m2 094067. 49 g 81 /min 97 % 97 % 97.6 [degF] 132 mm[Hg] 89 mm[Hg] Lizzeth Jack MA [facility] 5 14:50:45 Social History Question Answer Notes LastModified by Organizat ion Details LastModified Time Tobacco Smoking Status Never Smoker Not Available [facility] 09/19/2020 03:36:39 Do You Have An Advance Directive? Yes HCP -Jacklyn, Kaela/Mauro Information not available 06/13/2023 What Is Your Level Of Alcohol Consumption? Occasional Information not available 08/05/2023 Is Blood Transfusion Acceptable In An Emergency? Yes [id number] Information not available 09/19/2020 What Is Your Level Of Caffeine Consumption? Moderate Coffee [id number] Information not available 09/19/2020 How Much Tobacco Do You Chew? None [id number] Information not available 09/19/2020 Are You Currently Employed? Yes [employer] [id number] Information not available 09/19/2020 What Type Of Diet Are You Following? REGULAR Information not available 07/15/2022 Which Illicit Or Recreational Drugs Have You Used? None [id number] Information not available 09/19/2020 Do You Or Have You Ever Used E-cigarettes Or Vape? 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 No [employer] Information not available 06/28/2020 *AWV ONLY* Are [...] Date Of Your Most Recent Tobacco Screening? 02/22/2025 Information not available 02/22/2025 How Many Children Do You Have? 3 [id number] Information not available 09/19/2020 Do You Use Protection During Sex? No Information not available 07/08/2024 Do You Use Your Seat Belt Or Car Seat Routinely? Yes Information not available 07/15/2022 Seat Belts Used Routinely Yes Information not available 06/13/2023 Are You Sexually Active? Yes [id number] Information not available 09/19/2020 Smoke Alarm In Home Yes Information not available 06/13/2023 Do You Have Smoke And Carbon Monoxide Detectors In Your Home? Yes Information not available 07/15/2022 At What Age Did You Start Smoking Tobacco? 1 [id number] Information not available 09/19/2020 Are You Passively Exposed To Smoke? No Information not available 03/17/2015 Do You Or Have You Ever Used Smokeless Tobacco? Never Used Smokeless Tobacco [id number] Information not available 09/19/2020 How Much Tobacco Do You Smoke? No [id number] Information not available 09/19/2020 Do You Use Any Illicit Or Recreational Drugs? No Information not available 06/13/2023 Do You Use Sunscreen Routinely? Yes [id number] Information not available 09/19/2020 How Many Years Have You Smoked Tobacco? 0 [id number] Information not available 09/19/2020 Do You Or Have You Ever Used Any Other Forms Of Tobacco Or Nicotine? No Information not available 06/13/2023 Sex: Unknown Functional Status Question Answer Note LastModified by Organizat ion Details LastModified Time Are you able to walk? YESWOREST Information not available 06/13/2023 Are you able to care for yourself? Yes [id number] Information not available 09/19/2020 What is your exercise level? Occasional Information not available 07/08/2024 Mental Status None recorded. Family History Relationship Description Onset Age of this Age Resolved Age Notes LastModified by Organization Details LastModified Time Father Harmful pattern of use of alcohol [email or web address] Not available 03/28 09:07:20 Father Asthma [...] e 07/08/2024 12:34:29 Medical History Condition Response Gout N Other N Kidney Stones N Blood Diseases N Hyperthyroidism N Breast Cancer N Hypothyroidism Y Lung Disease N Depression Y COPD N Defects or Inherited Disease N Anesthesia Complications N Headaches/Migraines N Anxiety Disorder Y Varicose Veins N Obesity Y Vision or Eye Problems Y [...] of Last Colonoscopy 03/15/2011 Most Recent Mammogram 01/06/2025 Most Recent Bone Density Obstetrics History GPAL:G 0 P 0 0 0 0 Immunizations Vaccine Type Date Status Note Provider Nam e and Address Organization Details Recorded Time COVID-19, mRNA, LNP-S, PF, 30 mcg/0.3 mL dose [address] [facility] 09/29/2023 09:57:53 COVID-19, mRNA, LNP-S, PF, 30 mcg/0.3 mL dose [address] [facility] 09/29/2023 09:57:53 COVID-19, mRNA, LNP-S, PF, 30 mcg/0.3 mL dose 1 completed Lizeth Herrera null, [facility] 09/29/2023 09:57:53 COVID-19, mRNA, LNP-S, PF, 30 mcg/0.3 mL dose 1 completed Lizeth Herrera null, [facility] 09/29/2023 09:57:53 Influenza, MDCK, quadrivalent, PF 1 completed Lizeth Herrera null, [facility] 09/29/2023 09:57:53 Tdap 9 completed Lizeth Herrera null, [facility] 09/29/2023 09:57:53 Influenza, split virus, quadrivalent, PF 8 completed Lizeth Herrera null, [facility] 09/29/2023 09:57:53 Influenza, split virus, quadrivalent, PF 0 completed Lizeth Herrera null, [facility] 09/29/2023 09:57:53 COVID-19, mRNA, LNP-S, PF, 100 mcg/0.5mL dose or 50 mcg/0.25mL dose 2 completed Lizeth Herrera null, [facility] 09/29/2023 09:57:53 Influenza, split virus, quadrivalent, PF 6 completed Lizeth Herrera null, [facility] 09/29/2023 09:57:53 Influenza, split virus, quadrivalent, PF 9 completed Lizeth Herrera null, [facility] 09/29/2023 09:57:53 Influenza, MDCK, quadrivalent, PF 2 completed Lizeth Herrera null, [facility] 09/29/2023 09:57:53 COVID-19, mRNA, LNP-S, bivalent, PF, 50 mcg/0.5 mL or 25mcg/0.25 mL dose 2 completed Lizeth her, [facility] 09/29/2023 09:57:53 COVID-19, mRNA, LNP-S, PF, 50 mcg/0.5 mL 3 completed Lizeth her, [facility] 09/29/2023 09:57:53 Influenza, MDCK, trivalent, PF 4 completed KAYLI Hollingsworth, [facility] 09/07/2024 08:52:06 COVID-19, mRNA, LNP-S, PF, mina-sucrose, 30 mcg/0.3 mL 4 completed KAYLI Hollingsworth, [facility] 09/07/2024 08:52:06 Tdap [address] [facility] 09/29/2023 09:57:53 influenza, seasonal, intradermal, preservative free 3 completed Lizeth her, [facility] 09/29/2023 09:57:53 Influenza, split virus, quadrivalent, PF 3 completed Angelo Ring MD [address], [address], [facility] 08/05/2023 13:57:35 Past Encounters Encounter ID Performer Location Encounter Start Date Encounter Closed Date Diagnosis/Indication Diagnosis SNOMED-CT Code Diagnosis ICD10 Code Diagnosis Note [id number] autoEComm erce [address] [facility] [place] [address] 10/30/2012 00:00:00 [id number] autoEComm erce [address] [facility] [place] [address] 12/17/2012 00:00:00 [id number] [facility] [facility] [address] [place] [address] 01/28/2013 00:00:00 [id number] autoEComm erce [address] [facility] [place] [address] 05/21/2013 00:00:00 [id number] autoEComm erce [address] [facility] [place], [place] [address] 02/24/2014 00:00:00 [id number] autoEComm erce [address] [facility] [place], [place] [address] 03/03/2014 00:00:00 [id number] Jasen Bruna [facility] Main Office [address] [facility] [address] [place] [address] 11/29/2014 14:07:45 11/29/2014 14:55:38 Adnexal tenderness [id number] Acute abdomen [id number] re bound tenderness and fever. most tenderness seems to be adnexal. To ER for either CT ab/pelvis or transvag u/s. she will take herself to ER. high risk condition with threat to life [id number] Angelo Ring MD Main Office [facility] [address] [place] [address] 12/09/2014 08:01:30 12/09/2014 08:56:51 Diverticulitis of colon 306615325 Responding well to therapy which patient seems to be tolerating well. Will complete course and implement diverticul osis dietary modificati ons. If recurs may need further evaluation /intervent ion. [id number] [facility] Main Office [address] [facility] [address] [place] [address] 02/15/2015 09:48:55 02/15/2015 10:33:32 Cough [id number] suspect bacterial infection given the new onset fever after 2 wks of sxs. pneumonia is possible but lung exam nl. sinusitis also possible since getting bloody rhinorrhea . will treat with coverage for both. she will call in 5 days if not improving and we will do a CXR [id number] Angelo Ring MD Main Office [address] [facility] [address] [place] [address] 03/17/2015 13:57:14 03/17/2015 15:19:51 Adult health examination [id number] Immunizati on status utd, flu advised in the Fall. Cervical cancer screening utd. Regular dental and ophtho care advised as well as seatbelt and sunscreen use. Distracted driving discussed. Advance directives in place. Body mass index 30+ - obesity 466190020 Pain of mu ltiple joints 58609866 Has history of Lyme s/p tx. Now episodic flares of joint pain in the context of other autoimmune disease. Will check labs and consult rheum to rule out inflammato ry vs autoimmune joint disease. Minh thyroiditis 25841132 Followed by endo. Will check labs. Mixed anxi ety and depressive disorder 880443418 Suspect this might be playing into some of her symptoms. Will reassess at f/u. [id number] Essence sosa MD Main Office [address] [facility] [address] [place] [address] 05/30/2015 14:03:59 05/30/2015 15:06:20 Abdominal pain 93916926 most likely diverticul itis by hx and exam, feels similar to episode of diverticul itis in 12/01, this is 2nd episode, pain /, eating and drinking, will check CBC, pt with negative urine and negative urine, will treat as below and repeat exam in 48 hours her with me, if any worsening, vomiting, more pain or high fever pt to ER for CT scan, for now iwll hold off on CT scan since early and more mild than last presentati on, talk to Dr Plaza her primary in 07/01 about if she should meet a surgeon since 2 episodes in 7 months in such a young person. [id number] Essence sosa MD Main Office [address] [facility] [address] [place] [address] 06/01/2015 11:25:30 06/01/2015 11:52:16 Diverticulitis of colon 369363575 much better after 48 hours of abx, did not do CT scan and not needed at this time, any worsening pt needs to return. [id number] Angelo Ring MD Main Office [address] [facility] [address] [place] [address] 06/22/2015 14:07:00 06/22/2015 15:04:05 Diverticulitis of colon 975453984 Given recurrence will ask surgery for opinion on whether resection is indicated. Mixed anxi ety and depressive disorder 788523245 Improved, without meds. Will monitor. Minh thyroiditis 08042181 Will assume med prescribin g. [id number] Angelo Ring MD Main Office [address] [facility] [address] [place] [address] 07/11/2015 12:42:00 07/11/2015 13:32:02 Diplopia 06206102 Exam unremarkab le. Will image to look for evidence of gliosis/MS vs other brainstem lesions vs atypical migraine, vs recurrent lyme. Needs ophtho eval for more thorough fundoscopi c examinatio n. Will start with labs and depending on whether symptoms persist and imaging results neuro referral would be next step. Floaters i n visual field 844927311 Headache 67695392 [id number] Cherie Hannah PA-C Main Office [address] [address] [place] [address] 10/20/2015 13:24:01 10/20/2015 14:01:53 Diverticulitis of colon 983861102 K57.32 3 rd episode of acute diverticul itis. Will try to manage outpatient ly. Do STAT CBC with diff. If high, will ask her to go to the ER. PT. needs clear liquid diet and will strt on Flagyl and Levaquin. If no improvemen t in 24 hrs or high or worse , recommende d to go to the ER immediatel y. [id number] Angelo Ring MD Main Office [address] [address] [place] [address] 12/07/2015 08:06:46 12/07/2015 08:52:55 Diverticulitis of colon 852005712 K57.32 Scheduled for surgery. Minh thyroiditis 21 231842 E06.3 Will assume med prescribin g and monitoring . Needs infl uenza immunization 782946108 Z23 Myasthenia gravis 264110 04 G70.00 Immunology referral generated. Body mass index 30+ - obesity 874860437 Z68.38 Will check fasting labs today. [id number] Angelo Ring MD Main Office [address] [facility] [address] [place] [address] 01/02/2016 10:23:43 01/16/2016 11:46:47 [id number] Angelo Ring MD Main Office [address] [place] [address] 03/28/2016 08:05:39 03/28/2016 09:29:39 Adult health examination 682588133 Z00.00 Immunizati on status utd, flu advised in the Fall. Cervical cancer screening utd. Regular dental and ophtho care advised as well as seat belt and sunscreen use. Distracted driving discussed. Advance directives in place. Body mass index 30+ - obesity 659355704 Z68.36 Minh thyroiditis 21 258259 E06.3 Biochemica lly and clinically euthyroid. Continue current dose and follow labs. Hyperglycemia 25290888 R 73.9 Mixed anxi ety and depressive disorder 416403487 F41.8 Improved, without meds. Seeing therapist. will monitor. [id number] Cherie Hannah PA-C Main Office [address] [address] 01/14/2017 08:40:56 01/14/2017 09:24:29 Acute conjunctivitis 29870522 H10.31 [id number] Angelo Ring MD Main Office [address] [place] [address] 04/02/2017 09:26:44 04/02/2017 10:34:49 Adult health examination 004658341 Z00.01 Immunizati on status utd, flu advised in the Fall. Cervical cancer screening utd. Regular dental and ophtho care advised as well as seat belt and sunscreen use. Distracted driving discussed. Advance directives in place. Myasthenia gravis 946233 04 G70.00 Well controlled and followed by neuro. Body mass index 30+ - obesity 323253730 Z68.36 Increased frequency of urination 509701125 R35.0 Info provided on IC as I suspect this is the issue. Pt will call for urology referral if symptoms worsen/kwame nge. [id number] nAgelo Ring MD Main Office [address] [address] 04/03/2018 08:22:48 04/03/2018 09:21:03 Adult health examination 639306048 Z00.00 Immunizati on status utd, flu advised in the Fall. Cervical cancer screening utd. Regular dental and ophtho care advised as well as seat belt and sunscreen use. Distracted driving discussed. Advance directives in place. Myasthenia gravis 205780 04 G70.00 Well controlled and followed by neuro. Body mass index 30+ - obesity 829159894 Z68.36 Minh thyroiditis 21 600672 E06.3 Biochemica lly and clinically euthyroid. Continue current dose and follow labs. Vitamin D deficiency 347 15037 E55.9 WIll confirm adequate supplement ation. [id number] Angelo Ring MD Main Office [address] [facility] [address] [place] [address] 06/19/2018 14:32:25 06/19/2018 15:29:15 Sprain of jaw 31918949 S03.40XA Mouth guard, prn NSAID. Call dentist inb/worse. [id number] Angelo Ring MD Main Office [address] [address] [place] [address] 06/23/2018 08:44:23 06/23/2018 10:11:04 [id number] Angelo Ring MD Main Office [address] [address] [place] [address] 09/03/2018 14:32:34 09/03/2018 14:43:41 Needs influenza immunization 733942712 Z23 [id number] Angelo Ring MD Main Office [address] [address] [place] [address] 01/29/2019 10:50:49 01/29/2019 11:48:59 Acute pharyngitis 603217180 J02.9 Given symptom score and recent exposure will cover for strep despite negative rapid. Supportive tx advised as well. Will d/c abx if culture is negative. Call inb/worse or if new symptoms develop. Acute vaginitis 27915827 N76.0 Often an issue with abx for her. Rx provided in case. [id number] Angelo Ring MD Main Office [address] [address] [place] [address] 04/05/2019 14:03:43 04/05/2019 15:27:44 Adult health examination 952560454 Z00.00 Immunizati on status updated, flu advised in the Fall. Cervical cancer screening utd. Regular dental and ophtho care advised as well as seat belt and sunscreen use. Distracted driving discussed. Advance directives in place. Administra tion of viral vaccine 20277814 Z23 Screening for malignant neoplasm of breast 754417426 Z12.39 Myasthenia gravis 072506 04 G70.00 Well controlled and followed by neuro. Body mass index 30+ - obesity 334345949 Z68.37 Minh thyroiditis 21 285096 E06.3 Biochemica lly and clinically euthyroid. Continue current dose and follow labs. Vitamin D deficiency 347 72978 E55.9 WIll confirm adequate supplement ation. Recurrent major depression in partial remission 52821957 F33.41 Symptoms are worse/limi ting. Will see if buproprion is tolerated/ effective. Macrocytosis 054230644 D 75.89 Will screen for nutritiona l deficienci es. Hypercholesterolemia 136 37568 E78.00 Based on current CVD risk score will work on TLC and plan to monitor. Left flank pain 59680793 9 R10.9 Start eval with UA and consider imaging depending on symptom evolution and test results. Impaired f asting glycemia 113703113 R73.01 Low CHO, regular exercise and weight loss advised. Obesity 772660454 E66.9 [id number] Angelo Ring MD Main Office [address] [facility] [address] [place] [address] 05/13/2019 14:41:57 05/13/2019 15:25:19 Recurrent major depressive episodes, in full remission 189856921 F33.42 Responding well to low dose buproprion . Back to exercising and using mindfullne ss skills. Will continue current dose for now. Call with any problems. Vitamin D deficiency 347 72020 E55.9 Will d/c supplement [id number] Angelo Ring MD Main Office [address] [facility] [address] [place] [address] 09/14/2019 12:37:13 09/14/2019 13:28:14 Needs influenza immunization 625383368 Z23 Major depr ession single episode, in partial remission 64574068 F32.4 Responding well to low dose buproprion . Planning to resume exercise. Will try alternatin g 300/150mg tablets and see if tolerated/ effective. [id number] Angelo Ring MD Main Office [address] [address] [place] [address] 11/05/2019 08:32:31 11/05/2019 09:43:46 Recurrent major depression in partial remission 69673419 F33.41 Overall doing well on reduced buproprion dose but not in a position to reduce further at this point. Will monitor. Will resume melatonin for sleep. [id number] Angelo Ring MD Main Office [address] [address] [place] [address] 02/28/2020 09:22:21 02/28/2020 13:24:40 Recurrent major depression in partial remission 14791907 F33.41 Overall doing well on reduced buproprion dose but not in a position to reduce further at this point. Will monitor. Impaired f asting glycemia 247579759 R73.01 Low CHO, regular exercise and weight loss advised. Due for f/u labs. Hypercholesterolemia 136 55695 E78.00 Due for reassessme nt, will discuss mgmt based on CVD risk score. Vitamin D deficiency 347 04718 E55.9 Will reassess on lower supplement dose. [id number] Angelo Ring MD Main Office [address] [address] [place] [address] 06/28/2020 14:04:47 06/28/2020 15:12:18 Hypertensive disorder 45299679 I10 Likely diet and weight related, but thyroid issues need to be considered as well. Will screen for end organ damage and start dual medication therapy. Pt advised of common/ser ious potential side effects and to call with any problems after starting. Will go for her fasting labs today. Titrate dose at f/u as tolerated to goal BP <130/90. Minh thyroiditis 21 776625 E06.3 Biochemica lly and clinically euthyroid. Continue current dose and follow labs. [id number] Angelo Ring MD Main Office [address] [address] [place] [address] 07/06/2020 14:50:52 07/06/2020 15:58:04 Adult health examination 860465242 Z00.00 Immunizati on status updated, flu advised in the Fall. Cervical cancer screening utd. Regular dental and ophtho care advised as well as seat belt and sunscreen use. Distracted driving discussed. Advance directives in place. Essential hypertension 84950804 I10 Well controlled on low dose ACEI. Continue as is for now. Screening for malignant neoplasm of breast 909500394 Z12.39 Myasthenia gravis 452148 04 G70.00 Stable and followed by neuro. Obesity 428685800 E66.9 Body mass index 30+ - obesity 898998232 Z68.39 Minh thyroiditis 21 059634 E06.3 Biochemica lly and clinically euthyroid. Continue current dose and follow labs. Vitamin D deficiency 347 61606 E55.9 Continue current dose. Recurrent major depression in partial remission 67726934 F33.41 Improved. Continue current regimen. Hypercholesterolemia 136 44194 E78.01 Based on current CVD risk score will work on TLC and plan to monitor. Impaired f asting glycemia 403319469 R73.01 Low CHO, regular exercise and weight loss advised. [id number] Angelo Ring MD Main Office [address] [facility] [address] [place] [address] 09/05/2020 13:24:59 09/05/2020 13:59:04 Essential hypertension 16009364 I10 Well controlled on low dose ACEI. Continue as is for now. May decrease if BP goes down off of SNRI. Recurrent major depression in partial remission 34808986 F33.41 Will try slow wean and monitor symptoms. Call with any problems. Needs infl uenza immunization 346167380 Z23 [id number] Angelo Ring MD [facility] [address] [facility] [address] [place] [address] 10/13/2020 08:10:30 10/13/2020 13:15:17 Essential hypertension 88901661 I10 Fair control based on reported home numbers. Wants to work on Na restrictio n and weight loss. Will monitor. Recurrent major depression in partial remission 73254131 F33.41 Symptoms have increased since stopping buproprion but overall coping well and heading in the right direction. Will monitor with therapy and no medication for now. Call if any problems. [id number] Angelo Ring MD [facility] [address] [facility] [address] [place] [address] 02/23/2021 08:38:27 02/23/2021 09:43:57 Essential hypertension 70590644 I10 Fair control based on reported home numbers. Will titrate ACEI dose and monitor home BP. Advised to go for labs 2-3 weeks after dose increase. Healthy diet and exercise habits again discussed/ encouraged . Recurrent major depression in partial remission 59080087 F33.41 Symptoms remain since stopping buproprion but overall coping well and heading in the right direction. Will monitor with therapy and no medication for now. Call if any problems. Impaired f asting glycemia 632624554 R73.01 Low CHO, regular exercise and weight loss advised. Has been normal last 2 assessment s. Will remove diagnosis if normal this time around., [id number] Erasmo Sandoval MD [facility] [address] [address] [place] [address] 03/08/2021 08:40:17 03/08/2021 11:56:11 Headache 50810744 R51.9 Multifacto rial: ( stress, kids school from home, work, recent change in lisinopril , MG with 1st pfizer vaccine 02/21) but suspect may be hormonal as she recently stopped OCP and had a 9 day menses. Hydration, rest, watch for any possible triggers. Advil as needed but not daily to prevent rebound headaches. Have lab work done in the next week or so- I will add on CBC and thyroid studies to bloodwork already ordered by PCP. Minh thyroiditis 21 194096 E06.3 Myasthenia gravis 699071 04 G70.00 Essential hypertension 71769525 I10 Recent increase in lisinopril dosing which has improved her BP, still in normal range, do not suspect med is the cause of headache. continue to monitor BP. [id number] Angelo Ring MD Main Office [address] [facility] [address] [place] [address] 04/26/2021 12:40:23 04/26/2021 13:13:55 Contusion of right foot 0241067551 7919845 S90.31XA Most likely soft tissue injury is the cause of her symptoms, but given persistent point tenderness will image to rule out fracture. Refer to ortho if positive. [id number] Angelo Ring MD Main Office [address] [place] [address] 07/12/2021 10:55:07 07/12/2021 12:03:32 Adult health examination 651652688 Z00.00 Immunizati on status updated, flu advised in the Fall. Will screen based on risk factors. Cervical cancer screening utd, pt to have mammo done this year. Regular dental and ophtho care advised as well as seat belt and sunscreen use. Distracted driving discussed. Advance directives in place. Essential hypertension 74644052 I10 Well controlled , continue current regimen. Screening for malignant neoplasm of breast 039775028 Z12.39 Screening for malignant neoplasm of cervix 529746073 Z12.4 Hepatitis C screening 41 3178635 Z11.59 Myasthenia gravis 113876 04 G70.00 Stable and followed by neuro. Obesity 063758629 E66.9 Minh thyroiditis 21 920884 E06.3 Biochemica lly and clinically euthyroid. Continue current dose and follow labs. Vitamin D deficiency 347 69487 E55.9 Will verify adequate dosing. Recurrent major depression in partial remission 70128690 F33.41 Improved. Continue current regimen. Hypercholesterolemia 136 14515 E78.01 WIll reassess and manage based on CVD risk score. Impaired f asting glycemia 382121317 R73.01 Low CHO, regular exercise and weight loss advised. WIll monitor. Bilateral knee pain [id number] M25.561 M25.562 Likely OA but with comorbid autoimmune disease will screen for reactive arhtritis. Body mass index 40+ - severely obese 493441169 E66.01 Z68.41 Adjustment disorder with anxious mood 72310946 F43.22 Will monitor with SSRI trial. [id number] Angelo Ring MD [facility] [address] [place] [address] 08/17/2021 08:33:56 08/21/2021 09:12:13 Recurrent major depression in partial remission 57037175 F33.41 Improved but still symptomati c. Still following with therapist. Will continue current dose for now. Herpes zoster 2469189 B0 2.9 Diagnosed at and responding to valacyclov ir without significan t pain symptoms. Will call with any problems. [id number] Byron Rodrigues MD Tele[facility] [address] [facility] [address] [facility] [place] [address] 02/23/2022 08:23:04 02/25/2022 10:00:48 COVID-19 [id number] U07.1 Motrin or Tylenol OTC, not to exceed package insert for pain or fever q6h advised prn.Throat Lozenges otc prn for sore throat,masood twater gargle,mary quate hydration enforced,s jhonny sprays,hum idifier use enforced.p axlovid called in, last available kidney function reviewed, tessalon 100 tid prn good called inalso advised can use teaspoon honey for cough.isol ation precaution discussedp recaution advised if any difficulty breathing or tmax 103 > go to nearest ED [id number] Angleo Ring MD Main Office [address] [facility] [address] [facility] [place] [address] 07/15/2022 10:59:17 07/15/2022 12:27:18 Adult health examination 614128262 Z00.00 Immunizati on status updated, flu advised in the Fall. Will screen based on risk factors. Cervical cancer screening utd, pt to have mammo done this year. Regular dental and ophtho care advised as well as seat belt and sunscreen use. Distracted driving discussed. Advance directives in place. Recurrent major depression in partial remission 78203728 F33.41 Improved but still symptomati c. Still following with therapist. Will continue current dose for now. Impaired f asting glycemia 110743748 R73.01 Low CHO, regular exercise and weight loss advised. Will monitor. Essential hypertension 26086061 I10 Well controlled , continue current regimen. Screening for malignant neoplasm of breast 232331779 Z12.39 Screening for malignant neoplasm of cervix 987395913 Z12.4 Body mass index 40+ - severely obese 337274884 E66.01 Z68.42 Hypercholesterolemia 136 60605 E78.01 Will reassess and manage based on CVD risk score. Vitamin D deficiency 347 37024 E55.9 Level has been perfect on current dose. Contiue as is. Minh thyroiditis 21 750235 E06.3 Biochemica lly and clinically euthyroid. Continue current dose and follow labs. Additional labs ordered for the prescriber of her throid supplement s. Myasthenia gravis 025461 04 G70.00 Stable and followed by neuro. Luis Miguel cano [id number] B35. 3 [id number] Angelo Ring MD [facility] [address] [facility] [address] [facility] [place] [address] 08/16/2022 08:17:39 08/16/2022 09:29:36 Recurrent major depression in partial remission 79041845 F33.41 Improved but still symptomati c. Will titrate buproprion dose and reassess in 3-4 weeks. Persistent cough 2907449 02 R05.3 Will rule out pneumonia. If CXR positive or if symptoms worsen/sec ond sickening occurs would start her on a course of doxy. May need to consider ACEI induced cough but this sounds more inflammato ry. Generalize d anxiety disorder 03453793 F41.1 Buproprion seems to help. Not using any anxiolytic s. Wonder if there is a component of OCD. [id number] Angelo Ring MD Main Office [address] [facility] [address] [place] [address] 10/31/2022 12:35:45 10/31/2022 13:21:07 Generalized anxiety disorder 61565247 F41.1 Buproprion with low dose escitalopr am seems to be helping. Not using any anxiolytic s. Wonder if there is a component of OCD. Consider weaning off of SSRI if remains well controlled . Fever 463860187 R50.9 With exposure and fever here will screen for likely possible viral proccesees in community and more specifical ly at her home. Essential hypertension 18454185 I10 Not well controlled today and not sure if it is related to febrile illness or buporoprio n. Will reassess after acute issues resolve. [id number] Erasmo Sandoval MD Main Office [address] [facility] [address] [place] [address] 11/22/2022 13:58:23 11/22/2022 14:45:50 Essential hypertension 88791104 I10 will check blood work and urine, and wean off wellbutrin . ut back on sodium, hydration, rest, take lisinopril as directed. F/U as scheduled in Dec.EKG NSR, no acute abnormalit y Anxiety 60747413 F41.9 Cut wellbutrin back to 150mg daily x 7 days. then 150mg every other day for 7 days, if needed may extend to take 150mg every 3rd day then stop med. Prediabetes 866814025 R7 3.03 Hyperlipidemia 30952382 E78.5 Pain in right heel 69491 17605 273401 M79.671 recommend keeping heels clean and dry, use mometasone at bedtime x 7 days then start flexitol heel balm daily. Candidiasis of vagina 72 587304 B37.31 will rx diflucan as she is on abx and gets yeast frequently . 229126 Erasmo Sandoval MD [facility] [address] [address] [address] [facility] [place] [address] 12/07/2022 16:43:59 12/09/2022 10:40:33 Eruption 821934091 R21 Possible drug eruption to keflex. [id number] Angelo Ring MD Main Office [address] [place] [address] [place] [address] 12/24/2022 14:31:04 12/24/2022 15:30:08 Essential hypertension 12812083 I10 Well controlled on ACEI, tolerating therapy continue current dose. Liver enzy mes level above reference range 664212468 R74.01 Will reassess and evaluate further if persistent . [id number] Angelo Ring MD Main Office [address] [place] [address] [place] [address] 01/16/2023 09:03:04 01/16/2023 10:05:21 Generalized anxiety disorder 68599807 F41.1 Obesity 062389339 E66.9 Essential hypertension 98425234 I10 Well controlled on ACEI, tolerating therapy continue current dose. Needs to be monitored on stimulant therapy. Attention deficit hyperactivity disorder, combined type 11773004 F90.2 Will trial a course of stimulant therapy to help augment SSRI and monitor BP/symptom s. Titrate as tolerated to goal symptoms control. If effective transition to ER formulatio n. Recurrent major depression in partial remission 50598099 F33.41 Worse, reluctant to titrate SSRI further given her weight issues. [id number] Angelo Ring MD [facility] [address] [facility] [address] [place] [place] [address] 02/07/2023 13:10:43 02/07/2023 13:56:06 Generalized anxiety disorder 39207840 F41.1 Not well controlled but secondary to stressors which are hopefully going to be mitigate soon. Recurrent major depression in partial remission 18044377 F33.41 Worse, reluctant to titrate SSRI further given her weight issues. Attention deficit hyperactivity disorder, predominantly inattentive type 13437315 F90.0 See if atomoxetin e helps and is better tolerated. Essential hypertension 50992627 I10 Well controlled on ACEI, tolerating therapy continue current dose. Snoring 80642909 R06.83 Based on increasing weight and other symptoms sleep testing to r/o CHRIS is appropriat e. [id number] Angelo Ring MD Main Office [address] [facility] [address] [place] [address] 04/01/2023 11:19:49 04/01/2023 12:38:49 Generalized anxiety disorder 39744992 F41.1 Not well controlled but secondary to stressors which are hopefully going to be mitigate soon. Snoring 68167595 R06.83 Referral being coordinate d. Impaired f asting glycemia 022289931 R73.01 Low CHO, regular exercise and weight loss advised. Will monitor. Recurrent major depression in partial remission 60737195 F33.41 Worse, reluctant to titrate SSRI further given her weight issues. Ondina 4 weeks since last dose increase. Will monitor. Essential hypertension 07994029 I10 Well controlled on ACEI, tolerating therapy continue current dose. Minh thyroiditis 21 243909 E06.3 Biochemica lly and clinically euthyroid. Continue current dose and follow labs. Additional labs ordered for the prescriber of her throid supplement s. [id number] Angelo Ring MD [facility] [address] [facility] [address] [place] [address] 05/02/2023 08:32:28 05/06/2023 08:24:01 Generalized anxiety disorder 64166698 F41.1 Improved since escitalopr am dose titration. Will continue as is for now. Recurrent major depression in partial remission 51197085 F33.41 Fair control/co ping better on escitalopr am. Will continue current dose. Obstructiv e sleep apnea of adult 4615941825 103 G47.33 Positive sleep study, no follow up available with sleep medicine until Jul. Pt is ok waiting. I would defer to them as her treatment plan will likely be ivis rowan Contact dermatitis 15073 004 L25.9 OTC cortisone helps somewhat. Will try higher potency for short term only. Body mass index 40+ - severely obese 605304603 E66.01 Z68.41 Member is 18 years of age and older. The member has a BMI greater than 30KG/m2. The member has engaged in a trial of behavioral modificati on, dietary restrictio ns, and exercise for least 3 months. The member will continue to engage in behavioral modificati on, dietary restrictio ns, and exercise while on Ozempic. The dose requested does not exceed 2.4 mg once weekly. The member will not be taking Wegovy with any other weight loss agent or any other GLP-1 receptor agent. Prediabetes 100262322 R7 3.03 [id number] Angelo Ring MD Tele[facility] [address] [facility] [address] [place] [address] 06/13/2023 08:26:00 06/13/2023 10:16:05 Generalized anxiety disorder 68713891 F41.1 Improved on escitalopr am dose titration, but virtually resolved with CHRIS therapy. Will try reducing lexapro dose. Morbid obesity 344976859 E66.01 Obstructiv e sleep apnea of adult 2030190245 103 G47.33 On CPAP, tolerating and complying well with it with dramatic impact on systemic symptoms. Prediabetes 496002709 R7 3.03 Will titrate GLP1 agonist dose and go up to 1mg in 4 weeks if continuing to do well. Recurrent major depression in partial remission 07973481 F33.41 Doing much better from a mod perspectiv e on CPAP and not happy with thi impact on libido. Wants to try reducing dose to 5mg daily. Will taper slowly [id number] Angelo Ring MD Main Office [address] [facility] [address] [place] [address] 08/05/2023 12:49:12 08/05/2023 14:02:15 Adult health examination 839177201 Z00.00 Immunizati on status updated, flu advised in the Fall. Will screen based on risk factors. Cervical cancer screening utd, pt to have mammo done this year. Regular dental and ophtho care advised as well as seat belt and sunscreen use. Distracted driving discussed. Advance directives in place. Needs infl uenza immunization 727644205 Z23 Body mass index 40+ - severely obese 248452197 E66.01 Z68.41 Member is 18 years of age and older. The member has a BMI greater than 30KG/m2. The member has engaged in a trial of behavioral modificati on, dietary restrictio ns, and exercise for least 3 months. The member will continue to engage in behavioral modificati on, dietary restrictio ns, and exercise while on Ozempic. The dose requested does not exceed 2.4 mg once weekly. The member will not be taking Wegovy with any other weight loss agent or any other GLP-1 receptor agent. Recurrent major depression in partial remission 69424386 F33.41 Under much better control since starting CPAP Accidental ly self titrated her dose down to 5mg and doing well. Will stay there for now. Impaired f asting glycemia 412920315 R73.01 Low CHO, regular exercise and weight loss advised. Will monitor. Essential hypertension 35575875 I10 Well controlled , continue current regimen. Screening for malignant neoplasm of breast 117389531 Z12.39 Screening for malignant neoplasm of cervix 568604602 Z12.4 Hypercholesterolemia 136 12909 E78.01 Will reassess and manage based on CVD risk score. Vitamin D deficiency 347 03631 E55.9 Level has been perfect on current dose. Continue as is. Minh thyroiditis 21 286605 E06.3 Biochemica lly and clinically euthyroid. Continue current dose and follow labs. Additional labs ordered for the prescriber of her throid supplement s. Myasthenia gravis 728152 04 G70.00 Stable and followed by neuro. Abnormal g ait due to impairment of balance 672769851 R26.89 Prediabetes 815762361 R7 3.03 Will titrate GLP1 agonist dose and go up to 2mg in 4 weeks if continuing to do well. Obstructiv e sleep apnea of adult 2449100830 103 G47.33 On CPAP, tolerating and complying well with it with dramatic impact on systemic symptoms. [id number] Byron Rodrigues MD Tele[facility] [address] [facility] 207 [place] [address] 09/22/2023 14:22:00 09/22/2023 15:45:04 Adverse reaction to drug 89536080 T50.905A Adverse reaction to 2 mg of Ozempic which potentiate s pts IBS. Recommend to discontinu e 2 mg dose and take no Ozempic for 4 weeks. GLP is of great benefit to this patient overall due to prediabete s , morbid obesity ( current bmi 50.4) and hyperlipid emia with high cardiovasc ular risk. I would suggest to go back to 0.5 mg dose after 4 weeks and see if pt. is able to tolerate it better. Pt. agreed with the above plan and will f/u with PCP as scheduled in November. Morbid obesity 627007892 E66.01 Clear benefit from use of GLP-1 despite no weight loss so far on Ozempic. See above. Prediabetes 691638180 R7 3.03 Continue strict low calorie low carb diet and small dose of GLP-1 Ozempic. Discuss with PCP retrying 1 mg in the future if 0.5 mg dose was tolerated well. Avoid using at 2 mg dose. Nausea 527858049 R11.0 [id number] DENISSE NIETO Main Office [address] [facility] [address] [place] [address] 10/27/2023 10:39:25 10/27/2023 11:05:58 Cough 08157923 R05.9 -reports of recovering from viral infection- had sore throat that resolved after x1 week (resolved 10/23)-has not taken any OTC medication s-discusse d conservati ve measuremen ts to provide symptomati c relief-lopez l order xray for further evaluation Expiratory wheezing 9763 007 R06.2 hx of exercise induced asthma- has not needed/use d an inhaler in [facility] provide albuterol inhaler as wheezing was appreciate d on the PE [id number] Angelo Ring MD Main Office [address] [facility] [address] [place] [address] 12/04/2023 14:27:42 12/04/2023 16:00:04 Generalized anxiety disorder 72785702 F41.1 Improved on escitalopr am and CHRIS therapy. Morbid obesity 419638931 E66.01 Hold off on revisitng GLP1 agonsit therapy until chest pain is addressed. Recurrent major depression in partial remission 10868130 F33.41 Under much better control since starting CPAP Accidental ly self titrated her dose down to 5mg and doing well. Will stay there for now. Right side d chest pain 380855868 R07.89 Suspect soft tissue injury/str ain secondary to prolonged severe cough. Treatment options significan tly limited secondary to pt's myesthenia gravis (no NSAIDS/benitez roid). See if heat, and muscle relaxant helps as well as try topical lidocaine therapy if insurance will allow. Rule of rib fracture/P TX with focused imaging. Female str ess incontinence 96579924 N39.3 With her neuromuscu lar disorder may need further eval if persistent /worse. Will rule out UTI. Myasthenia gravis 504915 04 G70.00 Stable and followed by neuro, but condition and medical therapy impact many treatment options. Body mass index 40+ - severely obese 046348577 Z68.43 [id number] Angelo Ring MD Main Office [address] [facility] [address] [place] [address] 04/06/2024 12:43:35 04/06/2024 13:25:15 Generalized anxiety disorder 73334660 F41.1 Stable on current escitalopr am dose and CHRIS therapy. Prediabetes 752787653 R7 3.03 Will titrate GLP1 agonist dose and go up to 1mg dose Myasthenia gravis 355675 04 G70.00 Needs therapy assistance for global strength/b alance as well as help maintainin g ADLs. Requesting handicap placard which is reasonable . [id number] Angelo Ring MD Main Office [address] [facility] [address] [facility] [place] [address] 07/08/2024 12:32:31 07/08/2024 13:26:04 Myasthenia gravis 27063290 G70.00 On Cellcept, and labs being monitored closely by neuro. Minh thyroiditis 21 344891 E06.3 Biochemica lly and clinically euthyroid. Continue current dose and follow labs. Overdue for labs and does not want to follow with integrati e medicine who prescribed /monitored labs in the past. Obstructiv e sleep apnea of adult 9509661786 103 G47.33 On CPAP, tolerating and complying well with it with dramatic impact on systemic symptoms. Morbid obesity 545914960 E66.01 Certainly a candidate for GLP 1 agonist therapy. I hope insurance realizes this. Body mass index 40+ - severely obese 388747918 E66.01 Z68.41 Essential hypertension 38368932 I10 Well controlled , continue current regimen. Prediabetes 403158984 R7 3.03 Insurance rejected Ozempic, due for labs. [id number] Angelo Ring MD Main Office [address] [facility] [address] [place] [address] 09/07/2024 08:48:57 09/07/2024 09:51:38 Adult health examination 101330611 Z00.00 Immunizati on status utd. Will screen based on risk factors. Cervical cancer screening utd, pt to have mammo done this year. Regular dental and ophtho care advised as well as seat belt and sunscreen use. Distracted driving discussed. Advance directives in place. Screening for malignant neoplasm of cervix 216082528 Z12.4 Screening for malignant neoplasm of breast 911814339 Z12.39 Body mass index 40+ - severely obese 907332411 E66.01 Z68.43 Ins ultimately approved GLP1 therapy and she is responding . WIll titrate dose as tolerated. Needs infl uenza immunization 703541278 Z23 Recurrent major depression in partial remission 76774188 F33.41 Under much better control since starting CPAP, well controlled on current SSRI dose. Impaired f asting glycemia 530197975 R73.01 Low CHO, regular exercise and weight loss advised. Will monitor. Essential hypertension 42365197 I10 Well controlled , continue current regimen. Hypercholesterolemia 136 76626 E78.01 Will reassess and manage based on CVD risk score. Vitamin D deficiency 347 23552 E55.9 Level has been perfect on current dose. Continue as is. Minh thyroiditis 21 555419 E06.3 Biochemica lly and clinically euthyroid. Continue current dose and follow labs. Additional labs ordered for the prescriber of her throid supplement s. Myasthenia gravis 021543 04 G70.00 Stable and followed by neuro. Prediabetes 029280564 R7 3.03 Will titrate GLP1 agonist dose and go up to 2mg in 4 weeks if continuing to do well. If A1c remains >6.4 will enter diabetes diagnosis. Obstructiv e sleep apnea of adult 4515063364 103 G47.33 On CPAP, tolerating and complying well with it with dramatic impact on systemic symptoms. Screening for malignant neoplasm of colon 323202970 Z12.11 [id number] Angelo Ring MD Main Office [address] [facility] [facility] 207 [place] [address] 12/07/2024 10:28:22 12/07/2024 11:50:35 Prediabetes 081581082 R73.03 Will titrate GLP1 agonist dose and go up to 15mg in 4 weeks if continuing to do well. Generalize d anxiety disorder 15813827 F41.1 Stable on current escitalopr am dose and CHRIS therapy. Essential hypertension 80035739 I10 Well controlled , continue current regimen. Body mass index 40+ - severely obese 959319934 E66.01 Z68.43 Ins ultimately approved GLP1 therapy not responding as would have expected. Will titrate dose as tolerated. Pain in bi lateral legs 4682606403 9138908 M79.604 M79.605 ? neurogenic vs vascular. will start with vascular eval and go further from there depending on outcome. Recurrent major depression in partial remission 43553419 F33.41 Under much better control despite increased personal stressors. Well controlled on current SSRI dose. [id number] Erasmo Sandoval MD Main Office [address] [place] [address] 02/16/2025 09:45:44 02/16/2025 10:44:05 Acute pharyngitis 655405734 J02.9 negative strep test. Moderate dehydration 475 9679957 105 E86.0 tachycardi a, has had N/V/D. encouraged hydration with electrolyt es, water. zofran as eeded for nausea Essential hypertension 37783484 I10 BP stable Myasthenia gravis 174589 04 G70.00 Food-borne gastroenteritis 647003222 A05.9 suspect food related, neg covid/ flu and strep. sx overall imrpoving, encouraged zofran as needed, hydration, bland diet and advance as tolerated, if not better next week f/u as scheduled. [id number] Angelo Ring MD Main Office [address] [facility] [address] [place] [address] 02/22/2025 14:43:13 02/22/2025 15:31:58 Morbid obesity 582775308 E66.01 On GLP1 and tolerating well, but not really responding . Will try to increase dose further. Generalize d anxiety disorder 01218102 F41.1 Stable on current escitalopr am dose and CHRIS therapy. Essential hypertension 34308887 I10 Well controlled , continue current regimen. Recurrent major depression in partial remission 83813661 F33.41 Under much better control despite increased personal stressors. Well controlled on current SSRI dose. Body mass index 40+ - severely obese 974166072 E66.01 Z68.43 Ins ultimately approved GLP1 therapy not responding as would have expected. Will titrate dose as tolerated. Obstructiv e sleep apnea of adult 5861756071 103 G47.33 On CPAP, tolerating and complying well with it with dramatic impact on systemic symptoms. Venous ins ufficiency of leg 035608717 I87.2 Has ablations scheduled next week Health Concerns Section Related Observation LastModified by Organization Lucero melo LastModified Time None Recorded Concern Status LastModified by Organization Details LastModified Time None Recorded Advance Directives Directive Y: HCP -Jacklyn, Margarito a/Mauro Payers Encounter Date Sequence Insurance Name Policy Number Policy Quick Covered Member ID Quick Member ID Guarantor Name 07/08/2024 1 [facility] [place] [id number] 1 Joanna Elise [id number] Joanna Elise 09/07/2024 1 [facility] [place] [place] [id number] 1 Joanna Elise [id number] Joanna Elise 12/07/2024 1 [facility] [place] [place] [id number] 1 Joanna Elise [id number] Joanna Elise 02/16/2025 1 [facility]) [id number] 1 Joanna Hoyt Evelina Elise [id number] Joanna Elise 02/22/2025 1 [facility] [place] [place] [id number] 1 Joanna L Evelina Elise [id number] Joanna Elise Notes Date Note Type Note Provider Name and Address Organization Details Recorded Time 07/08/20 24 text/htm l Hypertension F/UReported bypatient.Associated [...] to lose weight. Angelo Ring MD [address] [address], [place], [address], [facility] 07/08/2024 13:31:09 09/07/20 24 text/htm l Generic HPI TemplateReported bypatient.Notes:Here for physical, Feels well on tirzapatide for 5 weeks. . Seeing dentist and ophtho regularly. Lorenza cordero, [place] her, [email or web address] 09/07/2024 13:37:21 12/07/19 25 text/htm l Hypertension F/UReported bypatient.Associated Symptoms:no dizziness; no lightheadedness; no chest pain; no shortness of breath; no palpitations; no edema; no calf pain with exertion Medications:taking medications as directed; no side effects from medicationMusculoskeletal PainReported bypatient.Quality:aching Severity:worsening;interferen ce with work Duration:present for 6-12 months Timing:intermittent Context:overuseNotes:HAving intermittent leg pain and muscle fatigue in the afternoon. Has myestenia Gravis, does not exercise regularly, and was advised by therapist that she may have lipiedema.ObesityReported bypatient.Diagnosis Summary:diagnosis: impaired fasting glucose Context:no oral [...] struggling to lose weight. Angelo Ring MD [address], [address], [facility] 12/07/2024 13:11:06 02/17/20 25 text/htm l Throat PainReported bypatient.Notes:Patient went to dinner Friday, has seafood RAS, few hours later felt unwell, Friday was unable to tolerate PO and woke up with fever. diarrhea and vomiting, Friday had fever again, diarrhea most of the night.Yesterday had fever again, diarrhea less frequent, no fever today.distended abd, sulfur burps.-Is on zepbound- same dose x 5 weeks. last dose sunday 02/11.has had strep at home in her family members, 1 week ago. + sore throat, no body aches/ chills, + fatigue, + headache, no ear pain.She did test neg for covid and flu at home yesterday. Overall today feels better, less diarrhea and no fever. No one else at home got diarrhea or illness, she was the only one who ate seafood. ADAM Hector [address] [address], [place], [address], [facility] 02/16/2025 12:20:18 02/23/20 25 text/htm l Anxiety/DepressionReported bypatient.Quality:symptoms improved Severity:able to maintain relationships; does not interfere with activities of daily living Duration:symptoms lasting over 2 weeks Context:major life stressors Associated Symptoms:denies homicidal ideations; no significant weight gain; no significant weight loss; mood good; no crying spells;anxiety;depressionNote s:Symptoms significantly improved with CPAP, escitalopram and therapyHypertension F/UReported bypatient.Associated Symptoms:no dizziness; no lightheadedness; no chest pain; no shortness of breath; no palpitations; no edema; no calf pain with exertion Medications:taking medications as directed; no side effects from medicationMusculoskeletal PainReported bypatient.Quality:aching Severity:worsening;interferen ce with work Duration:present for 6-12 months Timing:intermittent Context:overuseNotes:Having intermittent leg pain and muscle fatigue in the afternoon. Has myesthenia Gravis, on cellcept, does not exercise regularly, and was advised by therapist that she may have lipedema. Seen by vascular and diagnosed with venous insufficiency.ObesityReported bypatient.Diagnosis Summary:diagnosis: impaired fasting glucose Context:no oral [...] past but still struggling to lose weight. Tolerating tirzepatide well, but weight loss effect has plateaued Angelo Ring MD [address] [address], [place], [address], [facility] 02/22/2025 16:49:43 OBGyn Episode No OBEpisode recorded.
[2025-03-25 14:10] LABS: MANUAL DIFF FLAG NO
[2025-03-25 14:33] LABS: Basophils Percent Auto 0.2 % (0-2); Eosinophils Absolute Auto 0.1 X10*3/uL (0.0-0.4); Eosinophils Percent Auto 1.1 % (0-4); Hematocrit 40.3 % (37.0-47.0); Hemoglobin 13.2 g/dl (12.0-16.0); Imm Gran Abs Auto 0.05 X10*3/uL (0.00-0.03); Imm Gran Pct Auto 0.6 % (0.0-0.4); Lymphocytes Absolute Auto 2.6 X10*3/uL (1.2-4.9); Lymphocytes Percent Auto 28.9 % (20-40); Mean Corpuscular HGB Conc 32.8 g/dl (31.0-35.0); Mean Corpuscular Volume 94.6 fL (80.0-98.0); Monocytes Absolute Auto 0.6 X10*3/uL (0.1-1.2); Monocytes Percent Auto 6.7 % (2-11); Neutrophils Absolute Auto 5.6 x10*3/uL (2.0-8.3); Neutrophils Percent Auto 62.5 % (45-73); Platelet Count 267 X10*3/uL (160-400); Red Blood Count 4.26 X10*6/uL (4.20-5.50); Red Cell Distribution Width 12.6 % (11.0-16.0); White Blood Count 8.9 X10*3/uL (4.8-10.8)
[2025-03-25 14:53] LABS: Alanine Aminotransferase 44 U/L (0-31); Albumin Level 4.5 g/dL (3.5-5.0); Alkaline Phosphatase 80 U/L (39-117); Anion Gap 11 (12-20); Aspartate Amino Transferase 26 U/L (5-31); Bilirubin Total 0.2 mg/dL (0.0-1.0); Blood Urea Nitrogen 12 mg/dL (9-16); Carbon Dioxide 27 mmol/L (22-29); Chloride 101 mmol/L (96-108); Estimated Glomerular Filt Rate > 60; Glucose Random 93 mg/dL (60-115); Potassium 4.1 mmol/L (3.3-5.1); Sodium 135 mmol/L (135-145); Total Protein 7.1 g/dL (6.5-8.0)
== END 2025-03-25 13:57 | disposition home or self-care (01) ==
LOC: HO.LAB 13:56
PROVIDERS: PCP Pediatrics; Visit Provider Nurse Practitioner Family
DX: G70.00 Myasthenia gravis without (acute) exacerbation (principal)
CPT/HCPCS: 36415; 80053; 85025

== ENCOUNTER 2025-03-29 07:49 | Outpatient (AMB) | payer OTHER, SELFPAY ==
--- OUTSIDE RECORDS SUMMARY | 2025-03-29 07:51 | XMS_ITS | Continuity of Care Document ---
Author Organization [facility] Address [address] [place] [address] Phone Care Team Providers Care Machine Stamper Name Role Phone Axel VALDEZ, RVT, RPTERE, [...] Providers Copied on Encounter [facility] [place], [address] [place] [address] Dr Barrera [address], [id number], tel:[phone] [facility] [place] Encounter for follow-up examination after completed treatment for conditions other than malignant neoplasmPain in left leg 5 Axel VALDEZ RVT, AJITH Fox. Formerly [facility], [address], [place], [id number], [place]. tel:[phone] Referring Provider: Angelo Pinzon, [address] [place] [address] [place] [address], suite [facility], [place], [address]. tel:[phone] [facility] MD JEROME, [address] [place] [address] Dr Barrera [address], [place], [id number], [place] tel:[phone] [facility] [place] Varicose veins of left lower extremity with other complications 5 Axel VALDEZ RVT, RPVI Robert. [facility], [address] [address], [place], [id number], [place]. tel:[phone] Referring Provider: Angelo Pinzon, [address] [facility] 207 [facility], suite [facility], [place], [address]. tel:[phone] [facility] MD J[place]OME, [address] [place] [address] Dr Barrera [address], [place], [id number], [place] tel:[phone] [facility] Encounter for follow-up examination after completed treatment for conditions other than malignant neoplasmVaric ose veins of right lower extremity with pain 5 Axel VALDEZ RVT, RPVI Robert. [facility], [address], [place], [id number], [place]. tel:[phone] Referring Provider: Angelo Pinzon, [address] [place] [address] [place] [address], [place], [address]. tel:[phone] [facility], [address] [place] [address] Dr Barrera 1000[facility] [place], [id number], [place] tel:[phone] CVR - [place] Varicose veins of right lower extremity with other complications 5 Axel VALDEZ RVT, AJITH Fox. [address] [place] [address], [place], [id number], [place]. tel:[phone] Referring Provider: Angelo Pinzon, [address] [place] [address], [place], [address]. tel:[phone] [facility], [address] [place] [address] Dr Barrera 1000[facility] [place], [id number], [place] tel:[phone] [facility] - [place] No Information 5 Axel VLADEZ RVT, AJITH Fox. [address] [place] [address], [place], [id number], [place]. tel:[phone] [facility] MD JEROME, [address] [place] [address] Dr Barrera 1000[facility] [place], [id number], [place] tel:[phone] [facility] Chronic venous hypertension (idiopathic) with inflammation of right lower extremity 5 Axel VALDEZ RVT, AJITH Fox. [address] [place] [address], [place], [id number], [place]. tel:[phone] Referring Provider: Angelo Pinzon, [address] [place] [address], [place], [address]. tel:[phone] Offic/outpt E&m Estab 5 Min Trial- Telemedicine [place] & [place] Mauricio [facility] MD JEROME, [address] [place] [address] Dr Barrera 1000[facility] [address], [id number], [place] tel:[phone] [facility] Localized edemaVenous insufficiency (chronic) (peripheral) 5 Jarocho Suh. [address] [facility], [address], [place], [id number], [place]. tel:[phone] Referring Provider: Angelo Pinzon, [address] [place] [address], [place] [address], [place], [address]. tel:[phone] Offic Cons New/estab Mod 40 Mi- [place] & [place] [facility], [address] [place] [address] Dr Barrera [address], [place], [id number], [place] tel:[phone] CVR - [facility] Chronic venous hypertension (idiopathic) with other complications of bilateral lower extremityLoca lized edema 5 Axel VALDEZ RVT, AJITH Fox. [address] [place] [address], [place], [id number], [place]. tel:[phone] Referring Provider: Angelo Pinzon, [facility]0 [facility] [address] [place] [address], [place], [address]. tel:[phone] [place] [facility], [address] [place] [address] Dr Barrera [address], [place], [id number], [place] tel:[phone] CV - [facility] Chronic venous hypertension (idiopathic) with other complications of bilateral lower extremity 5 Axel VALDEZ RVT, AJITH Fox. [address] [place] [address], [place], [id number], [place]. tel:[phone] Referring Provider: Angelo Pinzon, [address] [facility] [address] [place] [address], [place] [address], [place], [address]. tel:[phone] Family History Family Member Type Diagnosis Age At Onset No Information Payers Payer name Insurance type Covered democrat ID Doris nickerson(s) [facility] [id number] Social History Type Description Quantity Date Captured [...] adult) ordered Appointment Joanna Elise BOOKED Appointment Joanna Elise BOOKED History Of Present Illness Encounter Date Complaint History Of Prese nt Illness No Information Functional Status Date Functional Assessmen t No Information Instructions Date Instruction Additional Infor mation Compression stocking usage as conservative measure Related to Localized edema Patient education booklet given Related to Localized edema Lifestyle education Related to B itzel mass index (BMI) 50-59.9 , adult Giving Encouragement to exercise Related to Body mass index (BMI) 50-59.9 , adult Diet education Related to Body mass index (BMI) 50-59.9 , adult Patient education booklet given Related to Chronic venous hypertension (idiopathic) with other complications of bilateral lower extremity Assessments Type Assessment Date No Information Patient Care Teams Name Effective Dates (start - stop) Status Members No Information
--- OUTSIDE RECORDS SUMMARY | 2025-03-29 07:52 | XMS_ITS | Data Portability ---
Author Organization [facility], Main Office Address [address] [facility] [address] [place] [phone] Care Team Providers Care Sales Product Manager Name Role Phone ANGELO RING Primary Care Provider SVITLANA RUBIN OTHER AIYANA OBREGON Neurologist [facility] Health Physicist [facility] SCHEDULING DEPT Locator Specialist [facility] Rock Loader [phone] IRINEO REYNA Vascular Surgeon Assessment No assessment [...] DO Not Attach Compendium, Do Not Delete/merge, [id number] 02/16/2025 10:47:11 CMP, serum or plasma 2023 024 [facility], [address] [place] [address], [address], [address], 09/20/2024 13:43:27 LDL, direct , serum 2023 024 [facility] (Centralized Electronic Ordering - All Locations), Patient Can Go To The Location Of Their Choice, 12/07/2024 06:07:23 HbA1c (hemog lobin A1c), blood 2023 [facility], [address], [address], [place], [address], 12/07/2024 06:07:24 T3, free, serum or plasma 2023 R[facility] (Centralized Electronic Ordering - All Locations), Patient Can Go To The Location Of Their Choice, 12/07/2024 06:07:26 unlist ed lab - TSH reflex to t4f 2023 R[facility] (Centralized Electronic Ordering - All Locations), Patient Can Go To The Location Of Their Choice, 12/07/2024 06:07:25 urinal ysis, comple te 2023 [facility], [address], [address], [place], [address], 09/07/2024 09:46:59 unlist ed lab - TSH [...] Go To The Location Of Their Choice, [id number] 07/09/2024 12:06:15 urinal ysis, comple te 2023 R[facility] (Centralized Electronic Ordering - All Locations), Patient Can Go To The Location Of Their Choice, [id number] 07/09/2024 12:06:17 lipid panel, serum 2023 R[facility] (Centralized Electronic Ordering - All Locations), Patient Can Go To The Location Of Their Choice, [id number] 07/09/2024 12:06:18 Referral vein specia list referr al - rule out venous insuff icienc y in pt with leg pain/s wellin g 2024 025 RICK Reyna MD, [address] [facility], [address], [place], [address], 12/10/2024 08:50:04 gyneco logist referr al - Patien t to schedu le 2023 024 [email or web address] Not available 03/07/2025 10:30:46 gastro entero logist referr al - Needs colon cancer screen ing 2023 024 [email or web address] Bowen MD, [address] [place], [address], 10/11/2024 09:28:36 nutrit ionist /dieti jocelin referr al 2023 024 ATHENAFAX [employer], [address] [facility], [place], [address], 07/14/2024 10:04:01 Procedures colono scopy screen ing (PROC) 2023 024 richie [facility], [address], [place], [address], 09/07/2024 11:05:37 Surgeries None record ed. Imaging MAMMO, screen ing, bilate ral - Perfor m Diagno stic Mammog daniella and Breast Ultras ound if needed / Perfor m Ultras ound Guided Aspira tion and/or Breast Biopsy if warran rafia 2023 024 [facility], [address] [place], [address], 01/06/2025 09:45:37 Medication Orders Zepbou nd 12.5 mg/0.5 mL subcut aneous pen inject or 2024 025 [id number], [phone] [place], [address], 02/22/2025 15:29:27 ondans etron 4 mg disint egrati ng tablet 2024 025 [id number], [phone] [place], [address], 02/28/2025 05:01:00 Zepbou nd 10 mg/0.5 mL subcut aneous pen inject or 2024 025 [id number], [phone] [place], [address], 02/22/2025 15:29:13 Zepbou nd 5 mg/0.5 mL subcut aneous pen inject or 2023 024 [facility]1130, [phone] [place], [address], 10/22/2024 15:00:19 Zepbou nd 2.5 mg/0.5 mL subcut aneous pen inject or 2023 024 [id number], [phone] [place], [address], 09/07/2024 09:25:20 Patient TargetsNo targets recorded. Patient Instructions Encounter Date Encounter Id Patient Instructions Last Modified By Organization Details Last Modified Time 07/08/2024 [id number] starting a weight loss plan: care instructions [...] Instructions [email or web address] Not available 07/08/2024 13:21:23 09/07/2024 [id number] depression treatment: care instructions awychowski Not available [...] pressure awychowski Not available 09/07/2024 09:46:40 12/07/2024 [id number] high blood pressure: care instructions awychowski Not available 12/07/2024 11:46:40 learning about high blood pressure awychowski Not available 12/07/2024 11:46:40 02/16/2025 [id number] food poisoning: care instructions jthabet Not available 02/16/2025 12:19:59 gastroenteritis: care instructions jthabet Not available 02/16/2025 12:19:59 oral rehydration: care instructions jthabet Not available 02/16/2025 10:40:27 dehydration: care instructions jthabet Not available 02/16/2025 10:40:27 To call or return for worsening or concerns jthabet Not available 02/16/2025 10:34:50 02/22/2025 [id number] depression treatment: care instructions awychowski Not available 02/22/2025 15:29:25 high blood pressure: care instructions awychowski Not available 02/22/2025 15:29:25 learning about high blood pressure awychowski Not available 02/22/2025 15:29:25 When You Want to Lose Weight: Care Instructions awychowski Not available 02/22/2025 15:29:25 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 Branch Or Department 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/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 Refer ral for Body mass index 40+ - severely obese Referring Physician: Family Celeste Murillo, Encounter Date: 07/08/2024 Locator Specialist Referral for Sc reening for malignant neoplasm of cervix Patient to schedule Referring Physician: Family Celeste Murillo, Encounter Date: 09/07/2024 Adult Educator Referral for Screening for malignant neoplasm of colon Needs colon cancer screening Referring Physician: Family Celeste Murillo, Encounter Date: 09/07/2024 Vein Specialist Referral for Pain in bilateral legs rule out venous insufficiency in pt with leg pain/swelling Referring Physician: Family Celeste Murillo, Encounter Date: 12/07/2024 Results Created Date Observation Date Name Description Value Unit Range Abnormal Flag Note LastModifiedBy Organization Detail LastModifiedTime 07/08/20 24 07/09/2024 COMP. METAB OLIC PANEL (14) glucose 125 mg/dL 70-99 above high normal Not Available [facility] ([facility]) [address] [place], [address], 07/09/2024 12:06:15 07/08/20 24 07/09/2024 COMP. METAB OLIC PANEL (14) BUN 10 mg/dL 6-24 normal Not Available [facility] ([facility]) [address] [place], [address], 07/09/2024 12:06:15 07/08/20 24 07/09/2024 COMP. METAB OLIC PANEL (14) creatinine 0.62 mg/dL 0.57-1 .00 normal Not Available [facility] ([facility]) [address] [facility] [place], [address], 07/09/2024 12:06:15 07/08/20 24 07/09/2024 COMP. METAB OLIC PANEL (14) eGFR 112 mL/mi n/1.7 3 >59 normal Not Available [facility] ([facility]) [address] [facility], [place], [address], 07/09/2024 12:06:15 07/08/20 24 07/09/2024 COMP. METAB OLIC PANEL (14) BUN/creatini ne ratio 16 9-23 normal Not Available [facility] ([facility]) [address] [facility], [place], [address], 07/09/2024 12:06:15 07/08/20 24 07/09/2024 COMP. METAB OLIC PANEL (14) sodium 140 mmol/ L 134-14 4 normal Not Available [facility] ([facility]) [address] [facility] [place], [address], 07/09/2024 12:06:15 07/08/20 24 07/09/2024 COMP. METAB OLIC PANEL (14) potassium 4.4 mmol/ L 3.5-5. 2 normal Not Available [facility] ([facility]) [address] [facility] [place], [address], 07/09/2024 12:06:15 07/08/20 24 07/09/2024 COMP. METAB OLIC PANEL (14) chloride 103 mmol/ L 96-106 normal Not Available [facility] ([facility]) [address] [facility], [place], [address], 07/09/2024 12:06:15 07/08/20 24 07/09/2024 COMP. METAB OLIC PANEL (14) carbon dioxide, total 20 mmol/ L 20-29 normal Not Available [facility] ([facility]) [address] [facility] [place] [place], [address], 07/09/2024 12:06:15 07/08/20 24 07/09/2024 COMP. METAB OLIC PANEL (14) calcium 9.5 mg/dL 8.7-10 .2 normal Not Available [facility] ([facility]) [address] [facility] [place] [place], [address], 07/09/2024 12:06:15 07/08/20 24 07/09/2024 COMP. METAB OLIC PANEL (14) protein, total 6.9 g/dL 6.0-8. 5 normal Not Available [facility] ([facility]) [address] [facility] [place], [address], 07/09/2024 12:06:15 07/08/20 24 07/09/2024 COMP. METAB OLIC PANEL (14) albumin 4.6 g/dL 3.9-4. 9 normal Not Available [facility] ([facility]) [address] [facility] [place] [place], [address], 07/09/2024 12:06:15 07/08/20 24 07/09/2024 COMP. METAB OLIC PANEL (14) globulin, total 2.3 g/dL 1.5-4. 5 Not Available [facility] ([facility]) [address] [facility] [place] [place], [address], 07/09/2024 12:06:15 07/08/20 24 07/09/2024 COMP. METAB OLIC PANEL (14) bilirubin, total <0.2 mg/dL 0.0-1. 2 Not Available [facility] ([facility]) [address] [facility] [place], [address], 07/09/2024 12:06:15 07/08/20 24 07/09/2024 COMP. METAB OLIC PANEL (14) alkaline phosphatase 79 IU/L 44-121 normal Not Available [facility]) [address] [facility] [place], [address], 07/09/2024 12:06:15 07/08/20 24 07/09/2024 COMP. METAB OLIC PANEL (14) AST (SGOT) 28 IU/L 0-40 normal Not Available [facility] ([facility]) [address] [facility] [place], [address], 07/09/2024 12:06:15 07/08/20 24 07/09/2024 COMP. METAB OLIC PANEL (14) ALT (SGPT) 45 IU/L 0-32 above high normal Not Available [facility] ([facility]) [address] [facility] [place], [address], 07/09/2024 12:06:15 07/08/20 24 07/09/2024 URINA LYSIS , COMPL ETE specific gravity 1.017 1.005- 1.030 normal Not Available [facility] ([facility]) [address] [facility] [place], [address], 07/09/2024 12:06:17 07/08/20 24 07/09/2024 URINA LYSIS , COMPL ETE pH 5.5 5.0-7. 5 normal Not Available [facility] ([facility]) [address] [facility] [place], [address], 07/09/2024 12:06:17 07/08/20 24 07/09/2024 URINA LYSIS , COMPL ETE urine-color Yellow yellow Not Available [facility] ([facility]) [address] [facility] [place], [address], 07/09/2024 12:06:17 07/08/20 24 07/09/2024 URINA LYSIS , COMPL ETE appearance Clear clear Not Available [facility] ([facility]) [address] [facility] [place], [address], 07/09/2024 12:06:17 07/08/20 24 07/09/2024 URINA LYSIS , COMPL ETE WBC esterase 1+ negati ve abnormal Not Available [facility] ([facility]) [address] [facility], [place], [address], 07/09/2024 12:06:17 07/08/20 24 07/09/2024 URINA LYSIS , COMPL ETE protein Negati ve negati ve/tra ce Not Available [facility] ([facility]) [address] [place], [address], 07/09/2024 12:06:17 07/08/20 24 07/09/2024 URINA LYSIS , COMPL ETE glucose Negati ve negati ve Not Available [facility] ([facility]) [address] [place], [address], 07/09/2024 12:06:17 07/08/20 24 07/09/2024 URINA LYSIS , COMPL ETE ketones Negati ve negati ve Not Available [facility] ([facility]) [address] [facility], [place], [address], 07/09/2024 12:06:17 07/08/20 24 07/09/2024 URINA LYSIS , COMPL ETE occult blood Negati ve negati ve Not Available [facility] ([facility]) [address] [place], [address], 07/09/2024 12:06:17 07/08/20 24 07/09/2024 URINA LYSIS , COMPL ETE bilirubin Negati ve negati ve Not Available [facility] ([facility]) [address] [place], [address], 07/09/2024 12:06:17 07/08/20 24 07/09/2024 URINA LYSIS , COMPL ETE urobilinogen ,semi-qn 0.2 mg/dL 0.2-1. 0 normal Not Available [facility] ([facility]) [address] [facility], [place], [address], 07/09/2024 12:06:17 07/08/20 24 07/09/2024 URINA LYSIS , COMPL ETE nitrite, urine Negati ve negati ve Not Available [facility] ([facility]) [address] [facility], [place], [address], 07/09/2024 12:06:17 07/08/20 24 07/09/2024 URINA LYSIS , COMPL ETE microscopic examination See below: Micro scopi c was indic ated and was perfo rmed. Not Available [facility] ([facility]) [address] [facility], [place], [address], 07/09/2024 12:06:17 07/08/20 24 07/09/2024 URINA LYSIS , COMPL ETE WBC 0-5 /hpf 0 - 5 Not Available [facility] ([facility]) [address] [facility], [place], [address], 07/09/2024 12:06:17 07/08/20 24 07/09/2024 URINA LYSIS , COMPL ETE RBC None seen /hpf 0 - 2 Not Available [facility] ([facility]) [address] [facility], [place], [address], 07/09/2024 12:06:17 07/08/20 24 07/09/2024 URINA LYSIS , COMPL ETE epithelial cells (non renal) 0-10 /hpf 0 - 10 Not Available [facility] ([facility]) [address] [facility], [place], [address], 07/09/2024 12:06:17 07/08/20 24 07/09/2024 URINA LYSIS , COMPL ETE epithelial cells (renal) DECORATOR MANNEQUIN Not Available [facility] ([facility]) [address] [place], [address], 07/09/2024 12:06:17 07/08/20 24 07/09/2024 URINA LYSIS , COMPL ETE casts None seen /lpf none seen Not Available [facility] ([facility]) [address] [facility], [place], [address], 07/09/2024 12:06:17 07/08/20 24 07/09/2024 URINA LYSIS , COMPL ETE cast type DECORATOR MANNEQUIN Not Available [facility] ([facility]) [address] [facility], [place], [address], 07/09/2024 12:06:17 07/08/20 24 07/09/2024 URINA LYSIS , COMPL ETE crystals DECORATOR MANNEQUIN Not Available [facility] ([facility]) [address] [facility], [place], [address], 07/09/2024 12:06:17 07/08/20 24 07/09/2024 URINA LYSIS , COMPL ETE crystal type DECORATOR MANNEQUIN Not Available [facility]) [address] [facility], [place], [address], 07/09/2024 12:06:17 07/08/20 24 07/09/2024 URINA LYSIS , COMPL ETE mucus threads DECORATOR MANNEQUIN Not Available [facility] ([facility]) [address] [facility], [place], [address], 07/09/2024 12:06:17 07/08/20 24 07/09/2024 URINA LYSIS , COMPL ETE bacteria Few none seen/f ew Not Available [facility] ([facility]) [address] [facility], [place], [address], 07/09/2024 12:06:17 07/08/20 24 07/09/2024 URINA LYSIS , COMPL ETE yeast DECORATOR MANNEQUIN Not Available [facility] ([facility]) [address] [facility], [place], [address], 07/09/2024 12:06:17 07/08/20 24 07/09/2024 URINA LYSIS , COMPL ETE trichomonas DECORATOR MANNEQUIN Not Available [facility] ([facility]) [address] [place], [address], 07/09/2024 12:06:17 07/08/20 24 07/09/2024 URINA LYSIS , COMPL ETE comment DECORATOR MANNEQUIN Not Available [facility] ([facility]) [address] [place], [address], 07/09/2024 12:06:17 07/08/20 24 07/09/2024 URINA LYSIS , COMPL ETE microscopic examination DECORATOR MANNEQUIN Not Available [facility] ([facility]) [address] [place], [address], 07/09/2024 12:06:17 07/08/20 24 07/09/2024 LIPID PANEL cholesterol, total 206 mg/dL 100-19 9 above high normal Not Available [facility] ([facility]) [address] [place], [address], 07/09/2024 12:06:18 07/08/20 24 07/09/2024 LIPID PANEL triglyceride s 199 mg/dL 0-149 above high normal Not Available [facility] ([facility]) [address] [place], [address], 07/09/2024 12:06:18 07/08/20 24 07/09/2024 LIPID PANEL HDL cholesterol 59 mg/dL >39 normal Not Available [facility] ([facility]) [address] [place], [address], 07/09/2024 12:06:18 07/08/20 24 07/09/2024 LIPID PANEL VLDL cholesterol barry 34 mg/dL 5-40 Not Available [facility] ([facility]) [address] [place], [address], 07/09/2024 12:06:18 07/08/20 24 07/09/2024 LIPID PANEL LDL chol calc ([facility]) 113 mg/dL 0-99 above high normal Not Available [facility] ([facility]) [address] [place], [address], 07/09/2024 12:06:18 07/08/20 24 07/09/2024 LIPID PANEL LDL calc comment: DECORATOR MANNEQUIN Not Available [facility] ([facility]) [address] [place], [address], 07/09/2024 12:06:18 07/08/20 24 07/09/2024 HEMOG LOBIN A1C hemoglobin A1C 6.5 % 4.8-5. 6 above high normal Predi abete s: 5.7 - 6.4 Diabe rema: >6.4 Glyce margarito contr ol for adult s with diabe rema: <7.0 Not Available [facility] ([facility]) [address] [place], [address], 07/09/2024 12:06:18 07/08/20 24 07/09/2024 TSH REFLE X TO T4F TSH 1.400 uIU/m L 0.450- 4.500 normal Not Available [facility] ([facility]) [address] [place], [address], 07/09/2024 12:06:19 07/08/20 24 07/09/2024 THYRO ID ANTIB ODIES thyroid peroxidase (tpo) Ab <9 IU/mL 0-34 Not Available [facility] ([facility]) [address] [place], [address], 07/09/2024 12:06:20 07/08/20 24 07/09/2024 THYRO ID [...] to 4 IU/mL . Not Available [facility] ([facility]) [address] [place], [address], 07/09/2024 12:06:20 07/08/20 24 07/09/2024 TRIIO DOTHY ANGEL E (T3), FREE triiodothyro nine (T3), free 3.8 pg/mL 2.0-4. 4 normal Not Available [facility] ([facility]) [address] [place], [address], 07/09/2024 12:06:20 12/03/19 25 12/04/2024 COMP. METAB OLIC PANEL (14) glucose 133 mg/dL 70-99 above high normal Not Available [facility] ([facility]) [address] [place], [address], 12/07/2024 06:07:22 12/03/19 25 12/04/2024 COMP. METAB OLIC PANEL (14) BUN 12 mg/dL 6-24 normal Not Available [facility] ([facility]) [address] [place], [address], 12/07/2024 06:07:22 12/03/19 25 12/04/2024 COMP. METAB OLIC PANEL (14) creatinine 0.77 mg/dL 0.57-1 .00 normal Not Available [facility] ([facility]) [address] [place], [address], 12/07/2024 06:07:22 12/03/19 25 12/04/2024 COMP. METAB OLIC PANEL (14) eGFR 97 mL/mi n/1.7 3 >59 normal Not Available [facility] ([facility]) [address] [place], [address], 12/07/2024 06:07:22 12/03/19 25 12/04/2024 COMP. METAB OLIC PANEL (14) BUN/creatini ne ratio 16 9-23 normal Not Available [facility] ([facility]) [address] [facility] [place] [place], [address], 12/07/2024 06:07:22 12/03/19 25 12/04/2024 COMP. METAB OLIC PANEL (14) sodium 143 mmol/ L 134-14 4 normal Not Available [facility] ([facility]) [address] [facility] [place], [address], 12/07/2024 06:07:22 12/03/19 25 12/04/2024 COMP. METAB OLIC PANEL (14) potassium 4.6 mmol/ L 3.5-5. 2 normal Not Available [facility] ([facility]) [address] [facility] [place], [address], 12/07/2024 06:07:22 12/03/19 25 12/04/2024 COMP. METAB OLIC PANEL (14) chloride 106 mmol/ L 96-106 normal Not Available [facility] ([facility]) [address] [place], [address], 12/07/2024 06:07:22 12/03/19 25 12/04/2024 COMP. METAB OLIC PANEL (14) carbon dioxide, total 16 mmol/ L 20-29 below low normal Not Available [facility] ([facility]) [address] [place], [address], 12/07/2024 06:07:22 12/03/19 25 12/04/2024 COMP. METAB OLIC PANEL (14) calcium 10.1 mg/dL 8.7-10 .2 normal Not Available [facility] ([facility]) [address] [facility] [place], [address], 12/07/2024 06:07:22 12/03/19 25 12/04/2024 COMP. METAB OLIC PANEL (14) protein, total 7.2 g/dL 6.0-8. 5 normal Not Available [facility] ([facility]) [address] [facility] [place], [address], 12/07/2024 06:07:22 12/03/19 25 12/04/2024 COMP. METAB OLIC PANEL (14) albumin 4.8 g/dL 3.9-4. 9 normal Not Available [facility] ([facility]) [address] [facility] [place], [address], 12/07/2024 06:07:22 12/03/19 25 12/04/2024 COMP. METAB OLIC PANEL (14) globulin, total 2.4 g/dL 1.5-4. 5 Not Available [facility] ([facility]) [address] [facility] [place], [address], 12/07/2024 06:07:22 12/03/19 25 12/04/2024 COMP. METAB OLIC PANEL (14) bilirubin, total <0.2 mg/dL 0.0-1. 2 Not Available [facility] ([facility]) [address] [facility] [place], [address], 12/07/2024 06:07:22 12/03/19 25 12/04/2024 COMP. METAB OLIC PANEL (14) alkaline phosphatase 69 IU/L 44-121 normal Not Available [facility] ([facility]) [address] [place], [address], 12/07/2024 06:07:22 12/03/19 25 12/04/2024 COMP. METAB OLIC PANEL (14) AST (SGOT) 26 IU/L 0-40 normal Not Available [facility] ([facility]) [address] [place], [address], 12/07/2024 06:07:22 12/03/19 25 12/04/2024 COMP. METAB OLIC PANEL (14) ALT (SGPT) 33 IU/L 0-32 above high normal Not Available [facility] ([facility]) [address] [place], [address], 12/07/2024 06:07:22 12/03/19 25 12/04/2024 LDL RUTH STERO L (DIRE CT) LDL chol. (direct) 132 mg/dL 0-99 above high normal Not Available [facility] ([facility]) [address] [place], [address], 12/07/2024 06:07:23 12/03/19 25 12/04/2024 LDL RUTH STERO L (DIRE CT) LDL direct comment: DECORATOR MANNEQUIN Not Available [facility] ([facility]) [address] [place], [address], 12/07/2024 06:07:23 12/03/1912/04/2024 HEMOG LOBIN A1C hemoglobin A1C 6.1 % 4.8-5. 6 above high normal Predi abete s: 5.7 - 6.4 Diabe rema: >6.4 Glyce margarito contr ol for adult s with diabe rema: <7.0 Not Available [facility] ([facility]) [address] [place], [address], 12/07/2024 06:07:24 12/03/1912/04/2024 TSH REFLE X TO T4F TSH 0.715 uIU/m L 0.450- 4.500 normal Not Available [facility] ([facility]) [address] [place], [address], 12/07/2024 06:07:25 12/03/1912/04/2024 TRIIO DOTHY ANGEL E (T3), FREE triiodothyro nine (T3), free 4.2 pg/mL 2.0-4. 4 normal Not Available [facility] ([facility]) [address] [place], [address], 12/07/2024 06:07:26 12/03/19 25 12/07/[address] PROBL EM request problem COMMEN T Test not perfo rmed. Patie nt was unabl e to provi de a self- colle cted speci men for the reque sted testi ng. The follo wing test( s) were not perfo rmed: TEST: 06507 2 Urina lysis , Compl ete Not Available [facility] ([facility]) [address] [facility], [place], [address], 12/07/2024 06:07:27 02/17/20 25 02/16/2025 strep group A, DNA, swab ID NOW Strep A 2 (rapid molecular test) negati ve Not Available In-Office Order Internal Use Only DO Not Attach Compendium DO Not Attach Compendium, Do Not Delete/merge, [id number] 02/16/2025 10:34:12 12/10/19 25 12/09/2024 US, kelly x, samir s, oziel mity, compl ete No observ ation record ed. [facility] [address], [place], [address], 12/14/2024 07:33:11 01/06/20 25 01/06/2025 MAMMO , [...] Lay letter mailed to bg harvey WSN: [id number] Orderi Physic mauro: Angelo Hernandez ed By: Zain Camacho MD Dictat ed Date/T jay jay: 9:40 am Review ed By: Zain Camacho MD Signed By: Zain Camacho MD Signed Date/T jay jay: 9:40 am Transc ribed By: CSB Transc riptio n Date/T jay jay: 9:40 am Birads : Kasandradanielito harvey Class: Outpat ient [email or web address] [facility] (Outpt Imaging) [address] [place], [address], 01/06/2025 11:27:56 01/06/2001/06/2025 MAMMO , scree loli, bilat eral No observ ation record ed. [email or web address] [facility] [address] [place], [address], 01/06/2025 11:28:21 Result Notes None recorded. Problems Name Problem SNOMED Code Status Onset Date Resolution Date Notes Provider Name and Address Organization Details Recorded Time Anaphyla xis 41400643 Completed 201305/31/2014 STORY: UNKNOWN CAUSE OCT 2012; RECORDED 02/25/20 14 8:52AM BY ANGELO Siegel MD, ANNOTATI ON/ADDEN DUM Angelo Ring MD [address] [facility] [address], [place], [address] , [facility] 6 21:33:38 Anxiety state 368691802 Completed 201303/28/2016 Angelo Ring MD [address] [facility] [address], [place], [address] , [facility] 6 21:33:38 Patient status finding [id number] Completed 201205/31/2014 RECORDED 05/21/20 13 2:50PM BY GANESH HOPE MA, ANNOTATI ON/ADDEN DUM Angelo Ring MD [address] [facility] [address], [place], [address] , [facility] 6 21:33:38 Autoimmu ne disease 51792433 Completed 201305/31/2014 RECORDED 02/25/20 14 8:52AM BY ANGELO Siegel MD, ANNOTATI ON/ADDEN DUM Angelo Ring MD [address] [facility] [address], [place], [address] , [facility] 6 21:33:38 Hashimot o thyroidi tis 33244354 Active 2013 Not Available [facility] 3 13:43:23 Screenin g for malignan t neoplasm of cervix Completed 201305/31/2014 RECORDED 02/25/20 14 8:30AM BY CASSIA MCPHERSON MA, ANNOTATI ON/ADDEN DUM Angelo Ring MD [address] [facility] [address], [place], [address] , [facility] 6 21:33:38 Chest pain 37084358 Completed 201205/31/2014 IMPRESSI ON: SYMPTOMS C/W EIA POSSIBLE ANXIETY COMPONEN T. WILL TRY PRE EXERCISE MDI. ADVISED TO CALL IF PERSISTA NT/WORSE .; RECORDED 05/21/20 13 2:50PM BY GANESH HOPE MA, ANNOTATI ON/ADDEN DUM Angelo Ring MD [address] [facility] [address], [place], [address] , [facility] 6 21:33:38 Cough 81039018 Completed 201312/09/2014 IMPRESSI ON: LUNGS ARE CLEAR, ALREADY ON AUGMENTI N FOR SINUSITI S WILL COMPLETE COURSE, REC. MUCOLYTI CS/HYDRA TION; RECORDED 03/03/20 14 11:53AM BY LIZZETH PATHAK PA-C, OFFICE VISIT Angelo Ring MD [address] [facility] [address], [place], [address] , [facility] 6 21:33:38 Depressi ve disorder 92542531 Completed 201303/28/2016 Angelo Ring MD [address] [facility] [address], [place], [address] , [facility] 6 21:33:38 Recurren t major depressi ve episodes , in full remissio n Completed 201311/05/2019 Removal Reason: negative Angelo Ring MD [address] [facility] [address], [place], [address] , [facility] 9 09:34:27 Lyme disease 79108958 Completed 201305/31/2014 IMPRESSI ON: SXS CONSISTE NT WITH EARLY LYME, WILL TREAT. 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 I DO NOT SEE ANY BELLS PALSY AT THIS POINT. REASSURE Shine ZARATE THAT SHE HAS NO DROOP; RECORDED 02/25/20 14 8:52AM BY ANGELO Siegel MD, ANNOTATI ON/ADDEN DUM Angelo Ring MD [address] [facility] [address], [place], [address] , [facility] 6 21:33:38 Malaise and fatigue 682385414 Completed 201205/31/2014 IMPRESSI ON: COUPLED TO CHEST [...] ANNOTATI ON/ADDEN DUM Angelo Ring MD [address] [facility] [address], [place], [address] , [facility] 6 21:33:38 Influenz a vaccine needed [id number] 06 Completed 201205/31/2014 RECORDED 07/31/20 13 10:03AM BY RAMYA BENTON I, NURSE VISIT Angelo Ring MD [address] [address], [place], [address] , [facility] 6 21:33:38 Adult health examinat ion Completed 201305/31/2014 IMPRESSI ON: IMMUNIZA TION STATUS UTD WILL SCREEN BASED ON RISK FACTORS. REGULAR DENTAL CARE AND SEATBELT USE ADVISED. DISTRACT ED DRIVING DISCUSSE D. CERVICAL CANCER SCREENIN G UTD. ADVANCE DIRECTIV ES DISCUSSDanica D AND IN PLACE.; RECORDED 03/03/20 14 9:43AM BY CALEB HENRY MA, ANNOTATI ON/PINEDA Ring MD [address] [address], [place], [address] , [facility] 6 21:33:38 Celiac disease 742168214 Completed 201304/02/2017 STORY: BLOOD TESTS NEGATIVE FOR CELIAC Angelo Ring MD [address] [address], [place], [address] , [facility] 7 10:21:10 History of infectio us disease 217742385 Completed 201205/31/2014 RECORDED 01/28/20 13 4:18PM BY CASSIA MCPHERSON MA, ANNOTATI ON/PINEDA Ring MD [address] [address], [place], [address] , [facility] 6 21:33:38 Obesity 260060337 Completed 201304/02/2017 IMPRESSI ON: POTENTIA L ADVERSE HEALTH CONSEQUE NCES DISCUSSDanica D. INCREASE D PHYSICAL ACTIVITY AND APPROPRI ATWE DIETARY CHANGES ADVISED. ; RECORDED 03/03/20 14 9:43AM BY CALEB HENRY MA, OFFICE VISIT Cherie Hannah PA-C [address] [address], [place], [address] , [facility] 3 15:22:51 Panic disorder without agorapho litzy 65941652 Completed 201305/31/2014 RECORDED 02/25/20 14 8:52AM BY ANGELO Siegel MD, ANNOTATI ON/PINEDA Ring MD [address] [address], [place], [address] , [facility] 6 21:33:38 Immuniza tion refused Completed 201205/31/2014 RECORDED 01/28/20 13 4:18PM BY CASSIA MCPHERSON MA, ANNOTATI ON/PINEDA Ring MD [address] [address], [place], [address] , [facility] 6 21:33:38 Chronic sinusiti s 91635048 Completed 201305/31/2014 IMPRESSI ON: C/W POST VIRAL SECONDAR Y BACTERIA L PROCESS. CALL INB/WORS E.; RECORDED 03/03/20 14 9:43AM BY CALEB HENRY MA, ANNOTATI ON/PINEDA Ring MD [address] [address], [place], [address] , [facility] 6 21:33:38 Tachycar effie 9996469 Completed 201205/31/2014 IMPRESSI ON: WILL SCREEN FOR CONDUCTI ON ABNORMAL ITY.; RECORDED 05/21/20 13 2:50PM BY GANESH HOPE MA, ANNOTATI ON/PINEDA Ring MD [address] [address], [place], [address] , [facility] 6 21:33:38 Vitamin D deficien cy 02658505 Active 2013 Not Available [facility] 3 13:43:23 Anaphyla xis 41613066 Completed 201306/27/2014 STORY: UNKNOWN CAUSE OCT 2012; RECORDED 02/25/20 14 8:52AM BY ANGELO Seigel MD, ANNOTATI ON/ADDEN DUM Angelo Ring MD [address], [place], [address] , [facility] 6 21:33:38 Patient status finding [id number] Completed 201206/27/2014 RECORDED 05/21/20 13 2:50PM BY GANESH HOPE MA, ANNOTATI ON/ADDEN DUM Angelo Ring MD [address], [place], [address] , [facility] 6 21:33:38 Autoimmu ne disease 07877557 Completed 201306/27/2014 RECORDED 02/25/20 14 8:52AM BY ANGELO Siegel MD, ANNOTATI ON/EN DUM Angelo Ring MD [address], [place], [address] , [facility] 6 21:33:38 Screenin g for malignan t neoplasm of cervix Completed 201306/27/2014 RECORDED 02/25/20 14 8:30AM BY CASSIA MCPHERSON MA, ANNOTATI ON/ADDEN DUM Angelo Ring MD [address], [place], [address] , [facility] 6 21:33:38 Chest pain 23753323 Completed 201206/27/2014 IMPRESSI ON: SYMPTOMS C/W EIA POSSIBLE ANXIETY COMPONEN T. WILL TRY PRE EXERCISE MDI. ADVISED TO CALL IF PERSISTA NT/WORSE .; RECORDED 05/21/20 13 2:50PM BY GANESH HOPE MA, ANNOTATI ON/ADDEN DUM Angelo Ring MD [address], [place], [address] , [facility] 6 21:33:38 Lyme disease 36563475 Completed 201306/27/2014 IMPRESSI ON: SXS CONSISTE NT WITH EARLY LYME, WILL TREAT. 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 I DO NOT SEE ANY BELLS PALSY AT THIS POINT. REASSURE Shine ZARATE THAT SHE HAS NO DROOP; RECORDED 02/25/20 14 8:52AM BY ANGELO Siegel MD, ANNOTATI ON/PINEDA Ring MD [address] [facility] [address], [place], [address] , [facility] 6 21:33:38 Malaise and fatigue 791296742 Completed 201206/27/2014 IMPRESSI ON: COUPLED TO CHEST [...] CASSIA MCPHERSON MA, ANNOTATI ON/PINEDA Ring MD [address] [address], [place], [address] , [facility] 6 21:33:38 Influenz a vaccine needed [id number] 06 Completed 201206/27/2014 RECORDED 07/31/20 13 10:03AM BY RAMYA BENTON I, NURSE VISIT Angelo Ring MD [address] [facility] [address], [place], [address] , [facility] 6 21:33:38 Adult health examinat ion Completed 201306/27/2014 IMPRESSI ON: IMMUNIZA TION STATUS UTD WILL SCREEN BASED ON RISK FACTORS. REGULAR DENTAL CARE AND SEATBELT USE ADVISED. DISTRACT ED DRIVING [place]. CERVICAL CANCER SCREENIN G UTD. ADVANCE DIRECTIV ES CHRISTIE D AND IN PLACE.; RECORDED 03/03/20 14 9:43AM BY CALEB HENRY MA, ANNOTATI ON/PINEDA Ring MD [address] [address], [place], [address] , [facility] 6 21:33:38 History of infectio us disease 201110358 Completed 201206/27/2014 RECORDED 01/28/20 13 4:18PM BY CASSIA MCPHERSON MA, ANNOTATI ON/PINEDA Ring MD [address] [address], [place], [address] , [facility] 6 21:33:38 Panic disorder without agorapho litzy 53861443 Completed 201306/27/2014 RECORDED 02/25/20 14 8:52AM BY ANGELO Siegel MD, ANNOTVICKY ON/PINEDA Ring MD [address] [address], [place], [address] , [facility] 6 21:33:38 Immuniza tion refused Completed 201206/27/2014 RECORDED 01/28/20 13 4:18PM BY CASSIA MCPHERSON MA, ANNOTATI ON/PINEDA Ring MD [address] [address], [place], [address] , [facility] 6 21:33:38 Chronic sinusiti s 01087294 Completed 201306/27/2014 IMPRESSI ON: C/W POST VIRAL SECONDAR Y BACTERIA L PROCESS. CALL INB/WORS E.; RECORDED 03/03/20 14 9:43AM BY CALEB HENRY MA, ANNOTATI ON/PINEDA Ring MD [address] [address], [place], [address] , [facility] 6 21:33:38 Tachycar effie 0891743 Completed 201206/27/2014 IMPRESSI ON: WILL SCREEN FOR CONDUCTI ON ABNORMAL ITY.; RECORDED 05/21/20 13 2:50PM BY GANESH HOPE MA, ANNOTATI ON/ADDEN DUM Angelo Ring MD [address] [facility] [address], [place], [address] , [facility] 6 21:33:38 Divertic ulitis of colon 474428511 Completed 201404/02/2017 Angelo Ring MD [address] [facility] [address], [place], [address] , [facility] 7 10:20:23 Body mass index 30+ - obesity 051228970 Completed 07/06/2020 Cassia Mcpherson MA null, [facility] 0 15:05:27 Pain of multiple joints 16442889 Active Not Available [facility] 3 13:43:23 Mixed anxiety and depressi ve disorder 988163676 Completed 04/02/2017 Angelo Ring MD [address] [facility] [address], [place], [address] , [facility] 7 10:20:46 Abdomina l pain 84381908 Completed 03/28/2016 Angelo Ring MD [address] [facility] [address], [place], [address] , [facility] 6 21:33:38 Divertic ular disease 627208380 Active s/p partial colectom y Not Available [facility] 3 13:43:23 Diplopia 11177576 Active Not Available [facility] 3 13:43:23 Floaters in visual field 480601649 Completed 03/28/2016 Angelo Ring MD [address] [facility] [address], [place], [address] , [facility] 6 21:33:38 Headache 65601949 Completed 04/02/2017 Angelo Ring MD [address] [facility] [address], [place], [address] , [facility] 7 10:20:58 Myasthen ia gravis 97848375 Active Not Available [facility] 3 13:43:24 Acne 62678073 Completed 04/02/2017 Angelo Ring MD [address] [facility] [address], [place], [address] , [facility] 7 10:20:27 Hypergly cemia 18466514 Completed 04/02/2017 Angelo Ring MD [address] [facility] [address], [place], [address] , [facility] 7 10:21:18 Vitiligo 15565789 Active Not Available [facility] 3 13:43:23 Autoimmu ne polyendo crinopat hy 79142539 Active Not Available [facility] 3 13:43:23 Macrocyt osis 973880654 Active 2018 Not Available [facility] 3 13:43:23 Irritabl e bowel syndrome 85838788 Active 2018 Not Available [facility] 3 13:43:23 Recurren t major depressi on in partial remissio n 21962663 Active 2018 Not Available [facility] 3 13:43:23 Essentia l hyperten lucia 85243821 Active 2019 Not Available [facility] 3 13:43:24 Anti-nuc lear factor detected 794706530 Active 2020 Not Available [facility] 3 13:43:23 Herpes zoster 1589757 Active 2020 Not Available [facility] 3 13:43:23 History of SARS-CoV -2 58582257901 4452925 Active 2021 Not Available [facility] 3 13:43:23 Tinea pedis 2996273 Active 2021 Not Available [facility] 3 13:43:24 Generali zed anxiety disorder 72011269 Active 2021 Not Available [facility] 3 13:43:23 Prediabe rema 633023504 Active 2022 Not Available [facility] 3 13:43:24 Hyperlip idemia 32529733 Active 2022 Not Available [facility] 3 13:43:23 Pain in right heel 66638218730 02074 Completed 202208/05/2023 Angelo Ring MD [address], [place], [address] , [facility] 3 13:48:40 Candidia sis of vagina 24661890 Completed 202208/05/2023 Angelo Ring MD [address], [place], [address] , [facility] 3 13:35:30 Snoring 96782749 Completed 202208/05/2023 Angelo Ring MD [address], [place], [address] , [facility] 3 13:48:55 Obstruct kathy sleep apnea of adult 59793470673 03 Active 2022 Not Available [facility] 3 13:43:23 Morbid obesity 595130648 Active 2022 Not Available [facility] 3 13:43:23 Family history of malignan t melanoma 783017408 Active 2023 Angelo Ring MD [address], [place], [address] , [facility] 4 17:18:08 Body mass index 40+ - severely obese 729580373 Active 2023 Angelo Ring MD [address], [place], [address] , [facility] 4 09:39:33 Venous insuffic iency of leg 026349621 Active 2024 Angelo Ring MD [address], [place], [address] , [facility] 5 14:24:45 Acute pharyngi tis 078359293 Completed 202402/22/2025 Angelo Ring MD [address], [place], [address] , [facility] 5 15:16:34 Moderate dehydrat ion 08966610539 05 Completed 202402/22/2025 Angelo Ring MD [address], [place], [address] , [facility] 5 15:16:25 Food-bor ne gastroen teritis 206522553 Completed 202402/22/2025 Angelo Ring MD [address], [place], [address] , [facility] 5 15:16:36 Problem Notes None recorded. Procedures Surgical History Date Name Laterality Status Provider Name and Address Organization Details Recorded Time 01/06/20 25 Most Recent Mammogram completed Lizeth Herrera [facility] 01/06/2025 11:27:53 12/22/19 24 Mammogram both breasts completed Lizzeth Jack MA [facility] 09/07/2024 09:03:27 12/20/19 23 Mammogram both breasts completed Lizzeth Jack MA [facility] 08/05/2023 13:06:43 12/05/19 22 Mammogram Screening completed Liyah Sheikh [facility] 12/28/2021 14:01:53 03/19/20 20 Date of Last Pap Smear completed Cassia Mcpherson MA [facility] 07/06/2020 15:07:41 06/21/20 18 Cholecystectomy completed Angelo Ring MD [address], [place], [address], [facility] 06/23/2018 10:10:03 12/26/19 16 Gastrointestinal Surgery completed Angelo Ring MD [address], [place], [address], [facility] 12/27/2015 08:41:03 03/15/20 11 Date of Last Colonoscopy completed Cassia Mcphersno MA [facility] 03/28/2016 08:32:59 03/15/20 11 Colonoscopy completed Cassia Mcpherson MA [facility] 03/28/2016 08:33:00 Dxa bone density study completed [facility]pherson [facility] 04/02/2017 09:39:01 Imaging Results Imaging Date Name Status LastModified by Organiz ation Details LastModified Time 12/09/2024 US, duplex, venous, extremity, complete completed [facility] [address], [place], [address], 12/14/2024 07:33:11 01/06/2025 MAMMO, screening, digital, bilateral completed [address] (Outpt Imaging) [address] [place], [address], 01/06/2025 11:27:56 01/06/2025 MAMMO, screening, bilateral completed [address] [facility] [address] [facility], [place], [address], 01/06/2025 11:28:21 Procedure Notes None recorded. Medical Equipment None Reported. Allergies Allergen ID Allergen Name Allergen Category Reaction Reaction Severity Criticality Documentation Date Start Date Code Code System Note Provider Name and Address Organization Details Recorded Time 60612 Substance with sulfonami de structure and antibacte rial mechanism of action (substanc e) medicatio n hives moderate Not available 12/09/20142013 87656 4668 SNOMED REACT ION: AGNES her, [facility] 5 11:01:46 14820 acetamino phen / oxycodone medicatio n other mild Not available 12/09/2014 10602 3 RxNorm agita tion Angelo Ring MD [address], [place], [address], [facility] 5 08:52:25 35320 Dilaudid medicatio n rash mild Not available 01/03/20162015 43115 3 RxNorm hives ,rash , itchi ness, repor rafia from pt ED visit Flori Springer taina, [facility] 6 08:13:55 25253 erythromy morro medicatio n other moderate Not available 03/28/20162015 4053 RxNorm MG flare Angelo Ring MD [address], [place], [address], [facility] 6 09:06:27 97381 amoxicill in medicatio n abdominal pain severe Not available 02/01/20192018 723 RxNorm CASEY Anderson, [facility] 9 09:36:51 38540 Bactrim medicatio n Not available Not available Not available 02/28/2020 40277 9 RxNorm Gita Money taina, [facility] 0 10:20:34 23796 cephalexi n medicatio n rash moderate Not available 12/24/2022 2231 RxNorm KAYLI Hollingsworth, [facility] 3 14:38:30 41674 bupropion Not available other mild Not available 12/24/2022 72516 RxNorm eleva rafia BP Not Available [facility] 3 17:58:18 4228 clindamyc in hydrochlo ride medicatio n hives moderate Not available 05/31/20142013 08166 RxNorm KAYLI Baron, [facility] 6 08:28:39 4229 Paxil medicatio n Not available Not available Not available 05/31/20142013 36433 8 RxNorm REACT ION: JOVANNA SIMON Ring MD [address] [facility] [address], [facility] [place], [address], [facility] 7 10:12:34 Medications Name Sig Start Date Stop Date Status Note LastModified by Organization Details LastModified Time levofloxa morro 500 mg tabs active Not Available Not Available Not Available naltrexon e 3mg caps. 06/28 completed Not Available Not Available Not Available pyridosti gmine bromide 60 mg tabs 1/2 tab 3-5 times daily as needed 04/03 completed Not Available Not Available Not Available peg-3350/ nacl/na bicarbona te/kcl 420 gm solr active Not Available Not Available Not Available levothyro xine sodium 75 mcg tabs active Not Available Not Available Not Available metronida zole 500 mg tabs active Not Available Not Available Not Available fluconazo le 150 mg tabs active Not Available Not Available Not Available hydrocodo [...] Relief 50 mcg/actua tion nasal spray,nacho pension [place] 1 spray every day by intranas al [...] Updated DateTime 4 156.85 cm 52.8 kg/m2 721778. 22 g 88 /min 98 % 98 % 98.2 [degF] 125 mm[Hg] 83 mm[Hg] Kelly Ramirez LPN [facility] 4 12:48:01 Date Recorded Body height Body mass index (BMI) Body weight Heart rate Oxygen saturation Oxygen saturation in Arterial blood by Pulse oximetry Body temperature Systolic blood pressure Diastolic blood pressure Provider Name and Address Organization Details Last Updated DateTime 4 156.85 cm 50.8 kg/m2 648796 g 99 /min 96 % 96 % 98.1 [degF] 118 mm[Hg] 81 mm[Hg] Lizzeth Forest [facility] 4 09:00:49 Date Recorded Body height Body mass index (BMI) Body weight Heart rate Oxygen saturation Oxygen saturation in Arterial blood by Pulse oximetry Body temperature Systolic blood pressure Diastolic blood pressure Provider Name and Address Organization Details Last Updated DateTime 5 156.85 cm 51.9 kg/m2 535542. 86 g 96 /min 95 % 95 % 98.4 [degF] 130 mm[Hg] 82 mm[Hg] Lizzeth [facility] 5 10:58:49 Date Recorded Body height Body mass index (BMI) Body weight Heart rate Oxygen saturation Oxygen saturation in Arterial blood by Pulse oximetry Body temperature Systolic blood pressure Diastolic blood pressure Provider Name and Address Organization Details Last Updated DateTime 5 156.85 cm 49.2 kg/m2 508537. 16 g 107 /min 97 % 97 % 98.2 [degF] 118 mm[Hg] 84 mm[Hg] Waqas atkins MA [facility] 5 10:17:47 Date Recorded Body height Body mass index (BMI) Body weight Heart rate Oxygen saturation Oxygen saturation in Arterial blood by Pulse oximetry Body temperature Systolic blood pressure Diastolic blood pressure Provider Name and Address Organization Details Last Updated DateTime 5 156.85 cm 50.9 kg/m2 512283. 49 g 81 /min 97 % 97 % 97.6 [degF] 132 mm[Hg] 89 mm[Hg] Lizzeth Jack MA [facility] 5 14:50:45 Social History Question Answer Notes LastModified by Organizat ion Details LastModified Time Tobacco Smoking Status Never Smoker Not Available [facility] 09/19/2020 03:36:39 Do You Have An Advance Directive? Yes HCP -Jacklyn, Kaela/Mauro Information not available 06/13/2023 Is Blood Transfusion Acceptable In An Emergency? Yes [id number] Information not available 09/19/2020 What Is Your Level Of Caffeine Consumption? Moderate Coffee [id number] Information not available 09/19/2020 How Much Tobacco Do You Chew? None [id number] Information not available 09/19/2020 What Type Of Diet Are You Following? REGULAR Information not available 07/15/2022 Which Illicit Or Recreational Drugs Have You Used? None [id number] Information not available 09/19/2020 Education Post Graduate Information not available 06/13/2023 Live Alone Or With Others? With Others [...] Or Greater Than 100 Degrees Fahrenheit? No [email or web address] Information not available 06/28/2020 Are You Or Anyone In Your Household A Health Care Provider Or Emergency Responder? No [facility] Information not available 06/28/2020 To The Best Of Your Knowledge Have You Been In Close Proximity To Any Individual Who Tested Positive For COVID-19? No [facility] Information not available 06/28/2020 *AW[facility] ONLY* Are [...] How Many Children Do You Have? 3 [id number] Information not available 09/19/2020 Do You Use Protection During Sex? No Information not available 07/08/2024 Do You Use Your Seat Belt Or Car Seat Routinely? Yes Information not available 07/15/2022 Seat Belts Used Routinely Yes Information not available 06/13/2023 Are You Sexually Active? Yes _6 Information not available 09/19/2020 Smoke Alarm In Home Yes Information not available 06/13/2023 Do You Have Smoke And Carbon Monoxide Detectors In Your Home? Yes Information not available 07/15/2022 At What Age Did You Start Smoking Tobacco? 0 [id number] Information not available 09/19/2020 Are You Passively Exposed To Smoke? No Information not available 03/17/2015 How Much Tobacco Do You Smoke? No [id number] Information not available 09/19/2020 Do You Use Sunscreen Routinely? Yes [id number] Information not available 09/19/2020 How Many Years Have You Smoked Tobacco? 0 [id number] Information not available 09/19/2020 Sex: Unknown Functional Status Question Answer Note LastModified by Organizat ion Details LastModified Time Do you use any illicit or recreational drugs? No Information not available 06/13/2023 Do you or have you ever used any other forms of tobacco or nicotine? No Information not available 06/13/2023 What is your level of alcohol consumption? Occasional Information not available 08/05/2023 Do you or have you ever used smokeless tobacco? Never used smokeless tobacco [id number] Information not available 09/19/2020 Are you currently employed? Yes [employer] [id number] Information not available 09/19/2020 Are you able to walk? YESWOREST Information not available 06/13/2023 Are you able to care for yourself? 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 Never used electronic cigarettes Information not available 06/13/2023 What is your exercise level? Occasional Information [...] Diseases N Hyperthyroidism N Breast Cancer N Depression Y COPD N Lung Disease N Hypothyroidism Y Defects or Inherited Disease N Anesthesia Complications N Headaches/Migraines N Varicose Veins N Anxiety Disorder Y Obesity Y Vision or Eye Problems Y Arthritis N Head Injury/Concussion N Polyps N Infertility N Congenital Anomalies N Acid Reflux (GERD) [...] mcg/0.3 mL dose 1 completed Lizeth her [facility] 09/29/2023 09:57:53 COVID-19, mRNA, LNP-S, PF, 30 mcg/0.3 mL dose 1 completed Lizeth her [facility] 09/29/2023 09:57:53 COVID-19, mRNA, LNP-S, PF, 30 mcg/0.3 mL dose 1 completed Lizeth Herrera null, [facility] 09/29/2023 09:57:53 COVID-19, mRNA, LNP-S, PF, 30 mcg/0.3 mL dose 1 completed Lizeth Herrera null, [facility] 09/29/2023 09:57:53 Influenza, MDCK, quadrivalent, PF 1 completed Lizeth Herrera null, [facility] 09/29/2023 09:57:53 Tdap 9 completed Lizeth Herrera null, [facility] 09/29/2023 09:57:53 Influenza, split virus, quadrivalent, PF 8 completed Lizeth Herrera null, [facility] 09/29/2023 09:57:53 Influenza, split virus, quadrivalent, PF 0 completed Lizeth Herrera null, [facility] 09/29/2023 09:57:53 COVID-19, mRNA, LNP-S, PF, 100 mcg/0.5mL dose or 50 mcg/0.25mL dose 2 completed Lizeth Herrera null, [facility] 09/29/2023 09:57:53 Influenza, split virus, quadrivalent, PF 6 completed Lizeth Herrera null, [facility] 09/29/2023 09:57:53 Influenza, split virus, quadrivalent, PF 9 completed Lizeth Herrera null, [facility] 09/29/2023 09:57:53 Influenza, MDCK, quadrivalent, PF 2 completed Lizeth Herrera null, [facility] 09/29/2023 09:57:53 COVID-19, mRNA, LNP-S, bivalent, PF, 50 mcg/0.5 mL or 25mcg/0.25 mL dose 2 completed Lizeth her, [facility] 09/29/2023 09:57:53 COVID-19, mRNA, LNP-S, PF, 50 mcg/0.5 mL 3 completed Lizeth her, [facility] 09/29/2023 09:57:53 Influenza, MDCK, trivalent, PF 4 completed KAYLI Hollingsworth, [facility] 09/07/2024 08:52:06 COVID-19, mRNA, LNP-S, PF, mina-sucrose, 30 mcg/0.3 mL 4 completed KAYLI Hollingsworth, [facility] 09/07/2024 08:52:06 Tdap 9 completed Lizeth her [facility] 09/29/2023 09:57:53 influenza, seasonal, intradermal, preservative free 3 completed Lizeth her, [facility] 09/29/2023 09:57:53 Influenza, split virus, quadrivalent, PF 3 completed Angelo Ring MD [address], [address], [facility] 08/05/2023 13:57:35 Past Encounters Encounter ID Performer Location Encounter Start Date Encounter Closed Date Diagnosis/Indication Diagnosis SNOMED-CT Code Diagnosis ICD10 Code Diagnosis Note [id number] autoEComm erce [address] [facility] [place] [address] 10/30/2012 00:00:00 [id number] autoEComm erce [address] [facility] [place] [address] 12/17/2012 00:00:00 [id number] [facility]Comm [facility] [facility] [address] [place] [address] 01/28/2013 00:00:00 [id number] autoEComm erce [address] [facility] [place] [address] 05/21/2013 00:00:00 [id number] autoEComm erce [address] [facility] [place], [place] [address] 02/24/2014 00:00:00 [id number] autoEComm erce [address] [facility] [address] [place], [place] [address] 03/03/2014 00:00:00 [id number] Jasen Bruna [facility] Main Office [address] [facility] [address] [place] [address] 11/29/2014 14:07:45 11/29/2014 14:55:38 Adnexal tenderness [id number] Acute abdomen [id number] re bound tenderness and fever. most tenderness seems to be adnexal. To ER for either CT ab/pelvis or transvag u/s. she will take herself to ER. high risk condition with threat to life [id number] Angelo Ring MD Main Office [facility] [address] [place] [address] 12/09/2014 08:01:30 12/09/2014 08:56:51 Diverticulitis of colon 491212545 Responding well to therapy which patient seems to be tolerating well. Will complete course and implement diverticul osis dietary modificati ons. If recurs may need further evaluation /intervent ion. [id number] [facility] Main Office [address] [facility] [address] [place] [address] 02/15/2015 09:48:55 02/15/2015 10:33:32 Cough [id number] suspect bacterial infection given the new onset fever after 2 wks of sxs. pneumonia is possible but lung exam nl. sinusitis also possible since getting bloody rhinorrhea . will treat with coverage for both. she will call in 5 days if not improving and we will do a CXR [id number] Angelo Ring MD Main Office [address] [facility] [address] [place] [address] 03/17/2015 13:57:14 03/17/2015 15:19:51 Adult health examination [id number] Immunizati on status utd, flu advised in the Fall. Cervical cancer screening utd. Regular dental and ophtho care advised as well as seatbelt and sunscreen use. Distracted driving discussed. Advance directives in place. Body mass index 30+ - obesity 487457730 Pain of mu ltiple joints 75244337 Has history of Lyme s/p tx. Now episodic flares of joint pain in the context of other autoimmune disease. Will check labs and consult rheum to rule out inflammato ry vs autoimmune joint disease. Minh thyroiditis 56397140 Followed by endo. Will check labs. Mixed anxi ety and depressive disorder 357797217 Suspect this might be playing into some of her symptoms. Will reassess at f/u. [id number] Essence sosa MD Main Office [address] [facility] [address] [place] [address] 05/30/2015 14:03:59 05/30/2015 15:06:20 Abdominal pain 55365552 most likely diverticul itis by hx and [...] 7 months in such a young person. [id number] Essence sosa MD Main Office [address] [facility] [address] [place] [address] 06/01/2015 11:25:30 06/01/2015 11:52:16 Diverticulitis of colon 142484248 much better after 48 hours of abx, did not do CT scan and not needed at this time, any worsening pt needs to return. [id number] Angelo Ring MD Main Office [address] [facility] [address] [place] [address] 06/22/2015 14:07:00 06/22/2015 15:04:05 Diverticulitis of colon 239395160 Given recurrence will ask surgery for opinion on whether resection is indicated. Mixed anxi ety and depressive disorder 380469550 Improved, without meds. Will monitor. Minh thyroiditis 34181165 Will assume med prescribin g. [id number] Angelo Ring MD Main Office [address] [facility] [address] [place] [address] 07/11/2015 12:42:00 07/11/2015 13:32:02 Diplopia 69891762 Exam unremarkab le. Will image to look for evidence of gliosis/MS vs other brainstem lesions vs atypical migraine, vs recurrent lyme. Needs ophtho eval for more thorough fundoscopi c examinatio n. Will start with labs and depending on whether symptoms persist and imaging results neuro referral would be next step. Floaters i n visual field 011794005 Headache 32453684 [id number] Cherie Hannah PA-C Main Office [address] [address] [place] [address] 10/20/2015 13:24:01 10/20/2015 14:01:53 Diverticulitis of colon 301763542 K57.32 3 rd episode of acute diverticul itis. Will try to manage outpatient ly. Do STAT CBC with diff. If high, will ask her to go to the ER. PT. needs clear liquid diet and will strt on Flagyl and Levaquin. If no improvemen t in 24 hrs or high or worse , recommende d to go to the ER immediatel y. [id number] Angelo Ring MD Main Office [address] [address] [place] [address] 12/07/2015 08:06:46 12/07/2015 08:52:55 Diverticulitis of colon 543663845 K57.32 Scheduled for surgery. Minh thyroiditis 21 121887 E06.3 Will assume med prescribin g and monitoring . Needs infl uenza immunization 536700747 Z23 Myasthenia gravis 417399 04 G70.00 Immunology referral generated. Body mass index 30+ - obesity 182688406 Z68.38 Will check fasting labs today. [id number] Angelo Ring MD Main Office [address] [facility] [address] [place] [address] 01/02/2016 10:23:43 01/16/2016 11:46:47 [id number] Angelo Ring MD Main Office [address] [place] [address] 03/28/2016 08:05:39 03/28/2016 09:29:39 Adult health examination 790842230 Z00.00 Immunizati on status utd, flu advised in the Fall. Cervical cancer screening utd. Regular dental and ophtho care advised as well as seat belt and sunscreen use. Distracted driving discussed. Advance directives in place. Body mass index 30+ - obesity 656950108 Z68.36 Minh thyroiditis 21 757573 E06.3 Biochemica lly and clinically euthyroid. Continue current dose and follow labs. Hyperglycemia 74640409 R 73.9 Mixed anxi ety and depressive disorder 013332989 F41.8 Improved, without meds. Seeing therapist. will monitor. [id number] Cherie Hannah PA-C Main Office [address] [address] 01/14/2017 08:40:56 01/14/2017 09:24:29 Acute conjunctivitis 70398695 H10.31 [id number] Angelo Ring MD Main Office [address] [place] [address] 04/02/2017 09:26:44 04/02/2017 10:34:49 Adult health examination 675642724 Z00.01 Immunizati on status utd, flu advised in the Fall. Cervical cancer screening utd. Regular dental and ophtho care advised as well as seat belt and sunscreen use. Distracted driving discussed. Advance directives in place. Myasthenia gravis 224331 04 G70.00 Well controlled and followed by neuro. Body mass index 30+ - obesity 092505198 Z68.36 Increased frequency of urination 856452079 R35.0 Info provided on IC as I suspect this is the issue. Pt will call for urology referral if symptoms worsen/kwame nge. [id number] Angelo Ring MD Main Office [address] [address] 04/03/2018 08:22:48 04/03/2018 09:21:03 Adult health examination 833584891 Z00.00 Immunizati on status utd, flu advised in the Fall. Cervical cancer screening utd. Regular dental and ophtho care advised as well as seat belt and sunscreen use. Distracted driving discussed. Advance directives in place. Myasthenia gravis 665636 04 G70.00 Well controlled and followed by neuro. Body mass index 30+ - obesity 900912271 Z68.36 Minh thyroiditis 21 332750 E06.3 Biochemica lly and clinically euthyroid. Continue current dose and follow labs. Vitamin D deficiency 347 40465 E55.9 WIll confirm adequate supplement ation. [id number] Angelo Ring MD Main Office [address] [facility] [address] [place] [address] 06/19/2018 14:32:25 06/19/2018 15:29:15 Sprain of jaw 52776025 S03.40XA Mouth guard, prn NSAID. Call dentist inb/worse. [id number] Angelo Ring MD Main Office [address] [address] [place] [address] 06/23/2018 08:44:23 06/23/2018 10:11:04 [id number] Angelo Ring MD Main Office [address] [address] [place] [address] 09/03/2018 14:32:34 09/03/2018 14:43:41 Needs influenza immunization 714685159 Z23 [id number] Angelo Ring MD Main Office [address] [address] [place] [address] 01/29/2019 10:50:49 01/29/2019 11:48:59 Acute pharyngitis 516662156 J02.9 Given symptom score and recent exposure will cover for strep despite negative rapid. Supportive tx advised as well. Will d/c abx if culture is negative. Call inb/worse or if new symptoms develop. Acute vaginitis 14177450 N76.0 Often an issue with abx for her. Rx provided in case. [id number] Angelo Ring MD Main Office [address] [address] [place] [address] 04/05/2019 14:03:43 04/05/2019 15:27:44 Adult health examination 663572707 Z00.00 Immunizati on status updated, flu advised in the Fall. Cervical cancer screening utd. Regular dental and ophtho care advised as well as seat belt and sunscreen use. Distracted driving discussed. Advance directives in place. Administra tion of viral vaccine 12931363 Z23 Screening for malignant neoplasm of breast 279449060 Z12.39 Myasthenia gravis 418407 04 G70.00 Well controlled and followed by neuro. Body mass index 30+ - obesity 150767590 Z68.37 Minh thyroiditis 21 309405 E06.3 Biochemica lly and clinically euthyroid. Continue current dose and follow labs. Vitamin D deficiency 347 16831 E55.9 WIll confirm adequate supplement ation. Recurrent major depression in partial remission 50446029 F33.41 Symptoms are worse/limi ting. Will see if buproprion is tolerated/ effective. Macrocytosis 417226906 D 75.89 Will screen for nutritiona l deficienci es. Hypercholesterolemia 136 70885 E78.00 Based on current CVD risk score will work on TLC and plan to monitor. Left flank pain 65423701 9 R10.9 Start eval with UA and consider imaging depending on symptom evolution and test results. Impaired f asting glycemia 428088778 R73.01 Low CHO, regular exercise and weight loss advised. Obesity 888032206 E66.9 [id number] Angelo Ring MD Main Office [address] [facility] [address] [place] [address] 05/13/2019 14:41:57 05/13/2019 15:25:19 Recurrent major depressive episodes, in full remission 163259495 F33.42 Responding well to low dose buproprion . Back to exercising and using mindfullne ss skills. Will continue current dose for now. Call with any problems. Vitamin D deficiency 347 45655 E55.9 Will d/c supplement [id number] Angelo Ring MD Main Office [address] [facility] [address] [place] [address] 09/14/2019 12:37:13 09/14/2019 13:28:14 Needs influenza immunization 444616004 Z23 Major depr ession single episode, in partial remission 00676068 F32.4 Responding well to low dose buproprion . Planning to resume exercise. Will try alternatin g 300/150mg tablets and see if tolerated/ effective. [id number] Angelo Ring MD Main Office [address] [address] [place] [address] 11/05/2019 08:32:31 11/05/2019 09:43:46 Recurrent major depression in partial remission 92029186 F33.41 Overall doing well on reduced buproprion dose but not in a position to reduce further at this point. Will monitor. Will resume melatonin for sleep. [id number] Angelo Ring MD Main Office [address] [address] [place] [address] 02/28/2020 09:22:21 02/28/2020 13:24:40 Recurrent major depression in partial remission 04035681 F33.41 Overall doing well on reduced buproprion dose but not in a position to reduce further at this point. Will monitor. Impaired f asting glycemia 400825873 R73.01 Low CHO, regular exercise and weight loss advised. Due for f/u labs. Hypercholesterolemia 136 39104 E78.00 Due for reassessme nt, will discuss mgmt based on CVD risk score. Vitamin D deficiency 347 12851 E55.9 Will reassess on lower supplement dose. [id number] Angelo Ring MD Main Office [address] [address] [place] [address] 06/28/2020 14:04:47 06/28/2020 15:12:18 Hypertensive disorder 92009194 I10 Likely diet and weight related, but thyroid issues need to be considered as well. Will screen for end organ damage and start dual medication therapy. Pt advised of common/ser ious potential side effects and to call with any problems after starting. Will go for her fasting labs today. Titrate dose at f/u as tolerated to goal BP <130/90. Minh thyroiditis 21 524000 E06.3 Biochemica lly and clinically euthyroid. Continue current dose and follow labs. [id number] Angelo Ring MD Main Office [address] [address] [place] [address] 07/06/2020 14:50:52 07/06/2020 15:58:04 Adult health examination 936359014 Z00.00 Immunizati on status updated, flu advised in the Fall. Cervical cancer screening utd. Regular dental and ophtho care advised as well as seat belt and sunscreen use. Distracted driving discussed. Advance directives in place. Essential hypertension 66740852 I10 Well controlled on low dose ACEI. Continue as is for now. Screening for malignant neoplasm of breast 657910696 Z12.39 Myasthenia gravis 609600 04 G70.00 Stable and followed by neuro. Obesity 676456171 E66.9 Body mass index 30+ - obesity 898661761 Z68.39 Minh thyroiditis 21 460138 E06.3 Biochemica lly and clinically euthyroid. Continue current dose and follow labs. Vitamin D deficiency 347 55771 E55.9 Continue current dose. Recurrent major depression in partial remission 69809966 F33.41 Improved. Continue current regimen. Hypercholesterolemia 136 00990 E78.01 Based on current CVD risk score will work on TLC and plan to monitor. Impaired f asting glycemia 954043741 R73.01 Low CHO, regular exercise and weight loss advised. [id number] Angelo Ring MD Main Office [address] [facility] [address] [facility] [place] [address] 09/05/2020 13:24:59 09/05/2020 13:59:04 Essential hypertension 00315249 I10 Well controlled on low dose ACEI. Continue as is for now. May decrease if BP goes down off of SNRI. Recurrent major depression in partial remission 84743026 F33.41 Will try slow wean and monitor symptoms. Call with any problems. Needs infl uenza immunization 038385749 Z23 [id number] [facility] [address] [facility] 207 [facility] [place] [address] 10/13/2020 08:10:30 10/13/2020 13:15:17 Essential hypertension 07826254 I10 Fair control based on reported home numbers. Wants to work on Na restrictio n and weight loss. Will monitor. Recurrent major depression in partial remission 35644775 F33.41 Symptoms have increased since stopping buproprion but overall coping well and heading in the right direction. Will monitor with therapy and no medication for now. Call if any problems. [id number] Angelo Ring MD [facility] [address] [facility] [address] [place] [address] 02/23/2021 08:38:27 02/23/2021 09:43:57 Essential hypertension 77030593 I10 Fair control based on reported home numbers. Will titrate ACEI dose and monitor home BP. Advised to go for labs 2-3 weeks after dose increase. Healthy diet and exercise habits again discussed/ encouraged . Recurrent major depression in partial remission 02782181 F33.41 Symptoms remain since stopping buproprion but overall coping well and heading in the right direction. Will monitor with therapy and no medication for now. Call if any problems. Impaired f asting glycemia 840487239 R73.01 Low CHO, regular exercise and weight loss advised. Has been normal last 2 assessment s. Will remove diagnosis if normal this time around., [id number] Erasmo Sandoval MD [facility] [address] [address] [place] [address] 03/08/2021 08:40:17 03/08/2021 11:56:11 Headache 74965270 R51.9 Multifacto rial: ( stress, kids school [...] already ordered by PCP. Minh thyroiditis 21 850359 E06.3 Myasthenia gravis 419790 04 G70.00 Essential hypertension 57947400 I10 Recent increase in lisinopril dosing which has improved her BP, still in normal range, do not suspect med is the cause of headache. continue to monitor BP. [id number] Angelo Ring MD Main Office [address] [facility] [address] [place] [address] 04/26/2021 12:40:23 04/26/2021 13:13:55 Contusion of right foot 3084474201 4493250 S90.31XA Most likely soft tissue injury is the cause of her symptoms, but given persistent point tenderness will image to rule out fracture. Refer to ortho if positive. [id number] Angelo Ring MD Main Office [address] [place] [address] 07/12/2021 10:55:07 07/12/2021 12:03:32 Adult health examination 522918603 Z00.00 Immunizati on status updated, flu advised in the Fall. Will screen based on risk factors. Cervical cancer screening utd, pt to have mammo done this year. Regular dental and ophtho care advised as well as seat belt and sunscreen use. Distracted driving discussed. Advance directives in place. Essential hypertension 38484504 I10 Well controlled , continue current regimen. Screening for malignant neoplasm of breast 461610498 Z12.39 Screening for malignant neoplasm of cervix 045448206 Z12.4 Hepatitis C screening 41 9217106 Z11.59 Myasthenia gravis 746506 04 G70.00 Stable and followed by neuro. Obesity 121358240 E66.9 Minh thyroiditis 21 047195 E06.3 Biochemica lly and clinically euthyroid. Continue current dose and follow labs. Vitamin D deficiency 347 04363 E55.9 Will verify adequate dosing. Recurrent major depression in partial remission 43826991 F33.41 Improved. Continue current regimen. Hypercholesterolemia 136 46587 E78.01 WIll reassess and manage based on CVD risk score. Impaired f asting glycemia 906380607 R73.01 Low CHO, regular exercise and weight loss advised. WIll monitor. Bilateral knee pain 1187 292569 6077931 M25.561 M25.562 Likely OA but with comorbid autoimmune disease will screen for reactive arhtritis. Body mass index 40+ - severely obese 180778888 E66.01 Z68.41 Adjustment disorder with anxious mood 04095176 F43.22 Will monitor with SSRI trial. [id number] Angelo Ring MD [facility] [address] [place] [address] 08/17/2021 08:33:56 08/21/2021 09:12:13 Recurrent major depression in partial remission 02759291 F33.41 Improved but still symptomati c. Still following with therapist. Will continue current dose for now. Herpes zoster 2539065 B0 2.9 Diagnosed at and responding to valacyclov ir without significan t pain symptoms. Will call with any problems. [id number] Byron Rodrigues MD [facility] [address] [facility] [address] [facility] [address] 02/23/2022 08:23:04 02/25/2022 10:00:48 COVID-19 922044480 U07.1 Motrin or Tylenol OTC, not to [...] tmax 103 > go to nearest ED [id number] Angelo Ring MD Main Office [address] [facility] 207 [facility] [place] [place] [address] 07/15/2022 10:59:17 07/15/2022 12:27:18 Adult health examination 858138408 Z00.00 Immunizati on status updated, flu advised in the Fall. Will screen based on risk factors. Cervical cancer screening utd, pt to have mammo done this year. Regular dental and ophtho care advised as well as seat belt and sunscreen use. Distracted driving discussed. Advance directives in place. Recurrent major depression in partial remission 95124720 F33.41 Improved but still symptomati c. Still following with therapist. Will continue current dose for now. Impaired f asting glycemia 884619142 R73.01 Low CHO, regular exercise and weight loss advised. Will monitor. Essential hypertension 68341623 I10 Well controlled , continue current regimen. Screening for malignant neoplasm of breast 107494196 Z12.39 Screening for malignant neoplasm of cervix 645455971 Z12.4 Body mass index 40+ - severely obese 751417559 E66.01 Z68.42 Hypercholesterolemia 136 79981 E78.01 Will reassess and manage based on CVD risk score. Vitamin D deficiency 347 05405 E55.9 Level has been perfect on current dose. Contiue as is. Minh thyroiditis 21 431546 E06.3 Biochemica lly and clinically euthyroid. Continue current dose and follow labs. Additional labs ordered for the prescriber of her throid supplement s. Myasthenia gravis 753051 04 G70.00 Stable and followed by neuro. Luis Miguel cano 5193496 B35. 3 [id number] Angelo Ring MD [facility] [address] [facility] 207 [facility] [place] [place] [address] 08/16/2022 08:17:39 08/16/2022 09:29:36 Recurrent major depression in partial remission 35614310 F33.41 Improved but still symptomati c. Will titrate buproprion dose and reassess in 3-4 weeks. Persistent cough 7548188 02 R05.3 Will rule out pneumonia. If CXR positive or if symptoms worsen/sec ond sickening occurs would start her on a course of doxy. May need to consider ACEI induced cough but this sounds more inflammato ry. Generalize d anxiety disorder 59216186 F41.1 Buproprion seems to help. Not using any anxiolytic s. Wonder if there is a component of OCD. [id number] Angelo Ring MD Main Office 36[address] [facility] 207 [facility] [place] [address] 10/31/2022 12:35:45 10/31/2022 13:21:07 Generalized anxiety disorder 83192469 F41.1 Buproprion with low dose escitalopr am seems to be helping. Not using any anxiolytic s. Wonder if there is a component of OCD. Consider weaning off of SSRI if remains well controlled . Fever 975964481 R50.9 With exposure and fever here will screen for likely possible viral proccesees in community and more specifical ly at her home. Essential hypertension 81675627 I10 Not well controlled today and not sure if it is related to febrile illness or buporoprio n. Will reassess after acute issues resolve. [id number] Erasmo Sandoval MD Main Office [address] [facility] 207 [facility] [place] [address] 11/22/2022 13:58:23 11/22/2022 14:45:50 Essential hypertension 40414974 I10 will check blood work and urine, and wean off wellbutrin . ut back on sodium, hydration, rest, take lisinopril as directed. F/U as scheduled in Dec.EKG NSR, no acute abnormalit y Anxiety 85453907 F41.9 Cut wellbutrin back to 150mg daily x 7 days. then 150mg every other day for 7 days, if needed may extend to take 150mg every 3rd day then stop med. Prediabetes 558452675 R7 3.03 Hyperlipidemia 77831387 E78.5 Pain in right heel 78873 85253 951747 M79.671 recommend keeping heels clean and dry, use mometasone at bedtime x 7 days then start flexitol heel balm daily. Candidiasis of vagina 72 663065 B37.31 will rx diflucan as she is on abx and gets yeast frequently . [id number] Erasmo Sandoval MD [facility] [address] [address] [facility] [address] 12/07/2022 16:43:59 12/09/2022 10:40:33 Eruption 622246380 R21 Possible drug eruption to keflex. [id number] Angelo Ring MD Main Office [address] [place] [address] [place] [address] 12/24/2022 14:31:04 12/24/2022 15:30:08 Essential hypertension 66597496 I10 Well controlled on ACEI, tolerating therapy continue current dose. Liver enzy mes level above reference range 353161620 R74.01 Will reassess and evaluate further if persistent . [id number] Angelo Ring MD Main Office [address] [place] [address] [place] [address] 01/16/2023 09:03:04 01/16/2023 10:05:21 Generalized anxiety disorder 32401418 F41.1 Obesity 360591375 E66.9 Essential hypertension 22947709 I10 Well controlled on ACEI, tolerating therapy continue current dose. Needs to be monitored on stimulant therapy. Attention deficit hyperactivity disorder, combined type 98985015 F90.2 Will trial a course of stimulant therapy to help augment SSRI and monitor BP/symptom s. Titrate as tolerated to goal symptoms control. If effective transition to ER formulatio n. Recurrent major depression in partial remission 79622635 F33.41 Worse, reluctant to titrate SSRI further given her weight issues. [id number] [facility] [address] [facility] [address] [place] [place] [address] 02/07/2023 13:10:43 02/07/2023 13:56:06 Generalized anxiety disorder 30004601 F41.1 Not well controlled but secondary to stressors which are hopefully going to be mitigate soon. Recurrent major depression in partial remission 18247562 F33.41 Worse, reluctant to titrate SSRI further given her weight issues. Attention deficit hyperactivity disorder, predominantly inattentive type 03278927 F90.0 See if atomoxetin e helps and is better tolerated. Essential hypertension 21056195 I10 Well controlled on ACEI, tolerating therapy continue current dose. Snoring 98637512 R06.83 Based on increasing weight and other symptoms sleep testing to r/o CHRIS is appropriat e. [id number] Angelo Ring MD Main Office [address] [facility] 207 [place] [address] 04/01/2023 11:19:49 04/01/2023 12:38:49 Generalized anxiety disorder 44988051 F41.1 Not well controlled but secondary to stressors which are hopefully going to be mitigate soon. Snoring 55880489 R06.83 Referral being coordinate d. Impaired f asting glycemia 316294716 R73.01 Low CHO, regular exercise and weight loss advised. Will monitor. Recurrent major depression in partial remission 29222078 F33.41 Worse, reluctant to titrate SSRI further given her weight issues. Ondina 4 weeks since last dose increase. Will monitor. Essential hypertension 92972786 I10 Well controlled on ACEI, tolerating therapy continue current dose. Minh thyroiditis 21 452933 E06.3 Biochemica lly and clinically euthyroid. Continue current dose and follow labs. Additional labs ordered for the prescriber of her throid supplement s. [id number] Angelo Ring MD [facility] [address] [facility] 207 [place] [address] 05/02/2023 08:32:28 05/06/2023 08:24:01 Generalized anxiety disorder 16839561 F41.1 Improved since escitalopr am dose titration. Will continue as is for now. Recurrent major depression in partial remission 38632613 F33.41 Fair control/co ping better on escitalopr am. Will continue current dose. Obstructiv e sleep apnea of adult 4427125085 103 G47.33 Positive sleep study, no follow up available with sleep medicine until Jul. Pt is ok waiting. I would defer to them as her treatment plan will likely be ivis rowan Contact dermatitis 22252 004 L25.9 OTC cortisone helps somewhat. Will try higher potency for short term only. Body mass index 40+ - severely obese 532567721 E66.01 Z68.41 Member is 17 years of [...] or any other GLP-1 receptor agent. Prediabetes 160832912 R7 3.03 [id number] Angelo Ring MD [facility] [address] [facility] [address] [place] [address] 06/13/2023 08:26:00 06/13/2023 10:16:05 Generalized anxiety disorder 08146662 F41.1 Improved on escitalopr am dose titration, but virtually resolved with CHRIS therapy. Will try reducing lexapro dose. Morbid obesity 991276506 E66.01 Obstructiv e sleep apnea of adult 4712728515 103 G47.33 On CPAP, tolerating and complying well with it with dramatic impact on systemic symptoms. Prediabetes 796901426 R7 3.03 Will titrate GLP1 agonist dose and go up to 1mg in 4 weeks if continuing to do well. Recurrent major depression in partial remission 42963271 F33.41 Doing much better from a mod perspectiv e on CPAP and not happy with thi impact on libido. Wants to try reducing dose to 5mg daily. Will taper slowly [id number] Angelo Ring MD Main Office [address] [facility] 207 [place] [address] 08/05/2023 12:49:12 08/05/2023 14:02:15 Adult health examination 611974542 Z00.00 Immunizati on status updated, flu advised in the Fall. Will screen based on risk factors. Cervical cancer screening utd, pt to have mammo done this year. Regular dental and ophtho care advised as well as seat belt and sunscreen use. Distracted driving discussed. Advance directives in place. Needs infl uenza immunization 876650556 Z23 Body mass index 40+ - severely obese 573812139 E66.01 Z68.41 Member is 17 years of [...] agent. Recurrent major depression in partial remission 60253776 F33.41 Under much better control since starting CPAP Accidental ly self titrated her dose down to 5mg and doing well. Will stay there for now. Impaired f asting glycemia 113750145 R73.01 Low CHO, regular exercise and weight loss advised. Will monitor. Essential hypertension 98187675 I10 Well controlled , continue current regimen. Screening for malignant neoplasm of breast 314800197 Z12.39 Screening for malignant neoplasm of cervix 486646599 Z12.4 Hypercholesterolemia 136 25640 E78.01 Will reassess and manage based on CVD risk score. Vitamin D deficiency 347 85434 E55.9 Level has been perfect on current dose. Continue as is. Minh thyroiditis 21 075505 E06.3 Biochemica lly and clinically euthyroid. Continue current dose and follow labs. Additional labs ordered for the prescriber of her throid supplement s. Myasthenia gravis 902914 04 G70.00 Stable and followed by neuro. Abnormal g ait due to impairment of balance 869146209 R26.89 Prediabetes 233735244 R7 3.03 Will titrate GLP1 agonist dose and go up to 2mg in 4 weeks if continuing to do well. Obstructiv e sleep apnea of adult 7128170804 103 G47.33 On CPAP, tolerating and complying well with it with dramatic impact on systemic symptoms. [id number] Byron Rodrigues MD [facility] [address] [facility] 207 [facility] [place] [address] 09/22/2023 14:22:00 09/22/2023 15:45:04 Adverse reaction to drug 55279425 T50.905A Adverse reaction to 2 mg of [...] PCP as scheduled in November. Morbid obesity 278434049 E66.01 Clear benefit from use of GLP-1 despite no weight loss so far on Ozempic. See above. Prediabetes 185667049 R7 3.03 Continue strict low calorie low carb diet and small dose of GLP-1 Ozempic. Discuss with PCP retrying 1 mg in the future if 0.5 mg dose was tolerated well. Avoid using at 2 mg dose. Nausea 125470141 R11.0 [id number] DENISSE NIETO Main Office 36[address] [facility] 207 [facility] [place] [place] [address] 10/27/2023 10:39:25 10/27/2023 11:05:58 Cough 69960680 R05.9 -reports of recovering from viral infection- had sore throat that resolved after x1 week (resolved 10/23)-has not taken any OTC medication s-discusse d conservati ve measuremen ts to provide symptomati c relief-lopez l order xray for further evaluation Expiratory wheezing 9763 007 R06.2 hx of exercise induced asthma- has not needed/use d an inhaler in [facility] provide albuterol inhaler as wheezing was appreciate d on the PE [id number] Angelo Ring MD Main Office [address] [facility] 207 [facility] [address] 12/04/2023 14:27:42 12/04/2023 16:00:04 Generalized anxiety disorder 18170733 F41.1 Improved on escitalopr am and CHRIS therapy. Morbid obesity 827632046 E66.01 Hold off on revisitng GLP1 agonsit therapy until chest pain is addressed. Recurrent major depression in partial remission 79788338 F33.41 Under much better control since starting CPAP Accidental ly self titrated her dose down to 5mg and doing well. Will stay there for now. Right side d chest pain 677950562 R07.89 Suspect soft tissue injury/str ain secondary to prolonged severe cough. Treatment options significan tly limited secondary to pt's myesthenia gravis (no NSAIDS/benitez roid). See if heat, and muscle relaxant helps as well as try topical lidocaine therapy if insurance will allow. Rule of rib fracture/P TX with focused imaging. Female str ess incontinence 97545144 N39.3 With her neuromuscu lar disorder may need further eval if persistent /worse. Will rule out UTI. Myasthenia gravis 889719 04 G70.00 Stable and followed by neuro, but condition and medical therapy impact many treatment options. Body mass index 40+ - severely obese 965635835 Z68.43 [id number] Angelo Ring MD Main Office [address] [facility] 207 [facility] [place] [address] 04/06/2024 12:43:35 04/06/2024 13:25:15 Generalized anxiety disorder 45388168 F41.1 Stable on current escitalopr am dose and CHRIS therapy. Prediabetes 660641573 R7 3.03 Will titrate GLP1 agonist dose and go up to 1mg dose Myasthenia gravis 882489 04 G70.00 Needs therapy assistance for global strength/b alance as well as help maintainin g ADLs. Requesting handicap placard which is reasonable . [id number] Angelo Ring MD Main Office [address] [facility] [address] [facility] [place] [address] 07/08/2024 12:32:31 07/08/2024 13:26:04 Myasthenia gravis 43330962 G70.00 On Cellcept, and labs being monitored closely by neuro. Minh thyroiditis 21 805185 E06.3 Biochemica lly and clinically euthyroid. Continue current dose and follow labs. Overdue for labs and does not want to follow with integrati e medicine who prescribed /monitored labs in the past. Obstructiv e sleep apnea of adult 4576004918 103 G47.33 On CPAP, tolerating and complying well with it with dramatic impact on systemic symptoms. Morbid obesity 456663751 E66.01 Certainly a candidate for GLP 1 agonist therapy. I hope insurance realizes this. Body mass index 40+ - severely obese 600918592 E66.01 Z68.41 Essential hypertension 23339310 I10 Well controlled , continue current regimen. Prediabetes 716401481 R7 3.03 Insurance rejected Ozempic, due for labs. [id number] Angelo Ring MD Main Office [address] [facility] [address] [place] [address] 09/07/2024 08:48:57 09/07/2024 09:51:38 Adult health examination 362315026 Z00.00 Immunizati on status utd. Will screen based on risk factors. Cervical cancer screening utd, pt to have mammo done this year. Regular dental and ophtho care advised as well as seat belt and sunscreen use. Distracted driving discussed. Advance directives in place. Screening for malignant neoplasm of cervix 379471498 Z12.4 Screening for malignant neoplasm of breast 780929844 Z12.39 Body mass index 40+ - severely obese 449470876 E66.01 Z68.43 Ins ultimately approved GLP1 therapy and she is responding . WIll titrate dose as tolerated. Needs infl uenza immunization 541215639 Z23 Recurrent major depression in partial remission 65442001 F33.41 Under much better control since starting CPAP, well controlled on current SSRI dose. Impaired f asting glycemia 558489404 R73.01 Low CHO, regular exercise and weight loss advised. Will monitor. Essential hypertension 90767327 I10 Well controlled , continue current regimen. Hypercholesterolemia 136 07570 E78.01 Will reassess and manage based on CVD risk score. Vitamin D deficiency 347 00829 E55.9 Level has been perfect on current dose. Continue as is. Minh thyroiditis 21 650324 E06.3 Biochemica lly and clinically euthyroid. Continue current dose and follow labs. Additional labs ordered for the prescriber of her throid supplement s. Myasthenia gravis 439850 04 G70.00 Stable and followed by neuro. Prediabetes 434219391 R7 3.03 Will titrate GLP1 agonist dose and go up to 2mg in 4 weeks if continuing to do well. If A1c remains >6.4 will enter diabetes diagnosis. Obstructiv e sleep apnea of adult 4931736620 103 G47.33 On CPAP, tolerating and complying well with it with dramatic impact on systemic symptoms. Screening for malignant neoplasm of colon 814866059 Z12.11 [id number] Angelo Ring MD Main Office [address] [facility] 207 [facility] [place] [address] 12/07/2024 10:28:22 12/07/2024 11:50:35 Prediabetes 695524106 R73.03 Will titrate GLP1 agonist dose and go up to 15mg in 4 weeks if continuing to do well. Generalize d anxiety disorder 21953462 F41.1 Stable on current escitalopr am dose and CHRIS therapy. Essential hypertension 46854708 I10 Well controlled , continue current regimen. Body mass index 40+ - severely obese 180068661 E66.01 Z68.43 Ins ultimately approved GLP1 therapy not responding as would have expected. Will titrate dose as tolerated. Pain in bi lateral legs 2130509059 4379421 M79.604 M79.605 ? neurogenic vs vascular. will start with vascular eval and go further from there depending on outcome. Recurrent major depression in partial remission 24575564 F33.41 Under much better control despite increased personal stressors. Well controlled on current SSRI dose. [id number] Erasmo Sandoval MD Main Office [address] [facility] [address] 02/16/2025 09:45:44 02/16/2025 10:44:05 Acute pharyngitis 299033591 J02.9 negative strep test. Moderate dehydration 041 8704194 105 E86.0 tachycardi a, has had N/V/D. encouraged hydration with electrolyt es, water. zofran as eeded for nausea Essential hypertension 15794504 I10 BP stable Myasthenia gravis 407449 04 G70.00 Food-borne gastroenteritis 750518052 A05.9 suspect food related, neg covid/ flu and strep. sx overall imrpoving, encouraged zofran as needed, hydration, bland diet and advance as tolerated, if not better next week f/u as scheduled. [id number] Angelo Ring MD Main Office [address] [facility] [address] [facility] [place] [address] 02/22/2025 14:43:13 02/22/2025 15:31:58 Morbid obesity 961621413 E66.01 On GLP1 and tolerating well, but not really responding . Will try to increase dose further. Generalize d anxiety disorder 29195644 F41.1 Stable on current escitalopr am dose and CHRIS therapy. Essential hypertension 42046408 I10 Well controlled , continue current regimen. Recurrent major depression in partial remission 14444767 F33.41 Under much better control despite increased personal stressors. Well controlled on current SSRI dose. Body mass index 40+ - severely obese 139092728 E66.01 Z68.43 Ins ultimately approved GLP1 therapy not responding as would have expected. Will titrate dose as tolerated. Obstructiv e sleep apnea of adult 3596687611 103 G47.33 On CPAP, tolerating and complying well with it with dramatic impact on systemic symptoms. Venous ins ufficiency of leg 102620060 I87.2 Has ablations scheduled next week Health Concerns Section Related Observation LastModified by Organization Lucero melo LastModified Time None Recorded Concern Status LastModified by Organization Details LastModified Time None Recorded Advance Directives Directive Y: HCP -Jacklyn, Margarito a/Mauro Payers Encounter Date Sequence Insurance Name Policy Number Policy Quick Covered Member ID Quick Member ID Guarantor Name 07/08/2024 1 [facility] [id number] 1 Joanna Elise [id number] Joanna Elise 09/07/2024 1 [facility] [place] [place] [id number] 1 Joanna Elise [id number] Joanna Elise 12/07/2024 1 [facility] [place] [place] [id number] 1 Joanna Elise [id number] Joanna Elise 02/16/2025 1 [facility]) [id number] 1 Joanna Hoyt Evelina Elise [id number] Joanna Elise 02/22/2025 1 [facility] [place] [place] [id number] 1 Joanna L Evelina Elise [id number] Joanna Elise Notes Date Note Type Note [...] to lose weight. Angelo Ring MD [address] [address], [place], [address], [facility] 07/08/2024 13:31:09 09/07/20 24 text/htm l Generic HPI TemplateReported bypatient.Notes:Here for physical, Feels well on tirzapatide for 5 weeks. . Seeing dentist and ophtho regularly. Lorenza cordero, [place] her, [facility] 09/07/2024 13:37:21 12/07/19 25 text/htm l Hypertension [...] struggling to lose weight. Angelo Ring MD [address], [address], [facility] 12/07/2024 13:11:06 02/17/20 25 text/htm l Throat [...] one who ate seafood. ADAM Hector [address] [address], [place], [address], [facility] 02/16/2025 12:20:18 02/23/20 25 text/htm l [...] loss effect has plateaued Angelo Ring MD [address] [address], [place], [address], [facility] 02/22/2025 16:49:43 OBGyn Episode No OBEpisode recorded.
--- NOTE | 2025-03-29 08:05 | MHC.OFFVIS ---
Vital Signs 03/29/25 08:06 Height 5 ft Weight 274 lb BMI 53.5 BP 110/80 Blood Pressure Location Lt brachial Position Sitting Pulse 84 Pulse Source Pulse Oximeter Pulse Oximetry (%) 98 Oxygen Delivery Method Room Air Intake Visit Reasons: Follow Up Intake Note: Patient presents follow up for Myasthenia gravis. labs done. Echo Vasc Tech Required: No Accompanied by: Self / Same As Patient Allergies hydromorphone [From Dilaudid] Allergy (Severe, Verified 03/29/25 08:08) Hives sulfamethoxazole [From Bactrim] Allergy (Severe, Verified 03/29/25 08:08) Rash trimethoprim [From Bactrim] Allergy (Severe, Verified 03/29/25 08:08) Rash clindamycin Allergy (Intermediate, Verified 03/29/25 08:08) Rash acetaminophen [From Percocet] Allergy (Mild, Verified 03/29/25 08:08) axitation erythromycin base Allergy (Mild, Verified 03/29/25 08:08) mg flare oxycodone [From Percocet] Allergy (Mild, Verified 03/29/25 08:08) axitation Medication List - Last Reconciled 03/29/25 by ELINOR Ramon cephalexin 500 mg PO TID escitalopram oxalate (Lexapro) 5 mg PO DAILY ketoconazole 2% appl topical DAILY levothyroxine 75 mcg PO DAILY liothyronine (Cytomel) 5 mcg PO BID lisinopril 20 mg PO DAILY mometasone 0.1% appl topical DAILY mycophenolate mofetil (CellCept) 500 mg PO BID 30 days pyridostigmine bromide (Mestinon) 30 mg orally 6 times a day, may take extra 1-2 doses per day prn diplopia; 90 days pyridostigmine bromide ER (Mestinon Timespan) 180 mg PO BID 30 days semaglutide (Ozempic) 1 mg subcut QWEEK tirzepatide (weight loss) (Zepbound) mg subcut HPI Comments Details: 45-yr-old female presents for f/u for myasthenia gravis. Pt reports she was doing PT, who raised the possibility of lipedema (as she has areas of painful firm lumps in legs and arms), and so she was referred to vascular. She was dx'd w/ BLE venous insufficiency, and has undergone BLE vein procedures (the last was 3 weeks ago)- which has started to help BLE heaviness some, but not the weakness yet. Her Ozempic was switched to Zepbound, however she has not noticed significant weight loss despite 1200 calorie restriction and walking to the best of her ability. She would like to review which mg antibody she has previously been tested for- which include anti-ACHR and Anti-MuSK antibodies- both of which were negative. Her last chest CT was over 10 years ago. She is currently taking: Mestinon ER only 1 tab qhs- due to a recent hospital nursing assistant back order. Mestinon IR 60mg 5 times a day. Mycophenolate 500 mg b.i.d.- started after April of 2024. Tolerating Mestinon and mycophenolate well. 03/25/2025 CBC and CMP within normal limits, with the exception of mildly elevated ALT at 44. Patient reports even with the using her CPAP, her fitbit shows noctural SpO2 is low 80s when she does not take a bedtime dose of Mestinon ER. However, when she does take a bedtime dose of Mestinon ER, her average nocturnal SpO2 is in the mid 90s. Sleep Medicine Services manages her CHRIS and CPAP- she has never had an in-lab sleep study or PAP titration study. Denies daytime SOB, but notes that once she feels the onset of muscle fatigue, she rests and removes herself from the situation if it triggering- ie hot/humid. She reports less diplopia and gagging in the mornings- with taking the Mestinon ER at bedtime She continues to feel weakness, exacerbated by heat humidity, physical activity. Using the cane and walker, makes her arms more prone to becoming weak as well. Her mobility continues to be limited due to heaviness, weakness, pain- continues to rely on a cane and a walker. She is still trying to mange her triggers- she often tries to minimize these symptoms by just not going anywhere. Continues to try avoid heat/humidity, avoids night driving as diplopia is worse at night (has avoided this since dx). Resting in an space w/ AC and taking 1/2 tab Mesitinon helps after 15-20 minutes- but this can prevent her from driving or engaging in activities while waiting. [facility] Medical History COVID-19 virus infection Depression Hypothyroidism Surgical History Hx of cholecystectomy Family History Mother Diabetes HTN (hypertension) Hyperlipidemia Father Diabetes HTN (hypertension) Hyperlipidemia Skin cancer Social History Alcohol intake: current Alcohol intake frequency: a few times a week Patient Tobacco Use Status: Never used Tobacco Physical Exam Vital Signs: Last Vital Signs Pulse 84 03/29/25 08:06 BP 110/80 03/29/25 08:06 Pulse Ox 98 03/29/25 08:06 Oxygen Delivery Method Room Air 03/29/25 08:06 BMI result Body Mass Index 53.5 Const General: cooperative and no acute distress Orientation/consciousness: patient oriented x3 HEENT Head: Yes normocephalic Resp Effort & Inspection: normal respiratory effort and able to speak in complete sentences Neuro General: patient oriented x3, gait normal and CN's II-XI intact bilaterally Cognition (Neuro): normal cognition Motor exam (neuro): 5/5 motor strength present throughout Psych Other: Teary at times Appearance: grossly normal Mental Status: mental status grossly normal Speech and movement: Normal speech and movement present Affect: normal affect Attitude: cooperative Thought process: Normal thought process present Thought content: Normal thought content present Insight: Good insight present (Psych) Judgement: Good judgement present (Psych) Assessment & Plan Assessment & Plan (1) Myasthenia gravis: Comment: ACHR-AB negative Code(s): G70.00 - Myasthenia gravis without (acute) exacerbation Category: Medical (2) Weakness: Code(s): R53.1 - Weakness Category: Medical (3) Impaired mobility and ADLs: Code(s): Z74.09 - Other reduced mobility; Z78.9 - Other specified health status Category: Medical (4) Diplopia: Code(s): H53.2 - Diplopia Category: Medical Plan As patient has ACHR AB negative and anti-MuSK AB negative myasthenia gravis symptoms continue to progress, and we have not seen significant improvement with starting mycophenolate: Check anti-LRP4 antibody Check chest CT with contrast Patient advised to discuss having In-lab PSG or In-lab PSG Pap titration with SMS- to further assess episodes of nocturnal hypoxemia and effectiveness of PAP therapy. OT eval and treat for optimization of ADLs strategies, strength and endurance. Future consideration, referral to neuromuscular neurology specialists Continue Mycophenolate mofetil 500mg orally twice a day. When available, resume Mestinon ER 180mg ER twice a day. Continue Mestinon 60 mg 5 times a day, and 30 mg 3 times a day as needed Would avoid chronic glucocorticoids, such as prednisone, use d/t risk for weight gain. Continue checking CBC and CMP monthly Concur w/ weight loss efforts, optimizing diet, increasing physical and weight training exercises. Continue to avoid known MG triggers- heat/humidity. Monitor myasthenia symptoms- diplopia, swallowing, and generalized weakness. Will follow-up upon review of above and patient to follow-up in clinic in 6 months or sooner prn. Orders: Orders OT Evaluation and Treatment Today G70.00 - Myasthenia gravis without (acute) exacerbation, R53.1 - Weakness, Z74.09 - Other reduced mobility, Z78.9 - Other specified health status CT chest w IV con Today G47.34 - Idiopathic sleep related nonobstructive alveolar hypoventilation, G70.00 - Myasthenia gravis without (acute) exacerbation, R53.1 - Weakness Other Ref Test - [facility] Today G70.00 - Myasthenia gravis without (acute) exacerbation Coding Level of Care Code Est Pt Level 4 (12951) Diagnoses Myasthenia gravis G70.00 Weakness R53.1 Impaired mobility and ADLs Z74.09; Z78.9 Diplopia H53.2
[2025-03-29 08:06] VITALS: BP 110/80; PULSE 84; O2SAT 98; BMI 53.5
== END 2025-03-29 09:00 | disposition home or self-care (01) ==
LOC: HO.HSMS 07:49
PROVIDERS: PCP Pediatrics; Visit Provider Nurse Practitioner Family
DX: G70.00 Myasthenia gravis without (acute) exacerbation (principal); R53.1 Weakness; Z74.09 Other reduced mobility; Z78.9 Other specified health status; H53.2 Diplopia
CPT/HCPCS: 99214

== ENCOUNTER 2025-05-16 14:33 | Outpatient (REF) | payer OTHER, SELFPAY ==
--- OUTSIDE RECORDS SUMMARY | 2025-04-18 06:58 | XMS_ITS | Continuity of Care Document ---
Author Organization [facility] Address [address] [place] [address] Phone Care Team Providers Care Wind Energy Technician Name Role Phone Charlie VALDEZ, Carlene Pedroza [...] Diagnoses Date Provider Providers Copied on Encounter [facility] MD JEROME, [address] [place] [address] Dr Barrera [facility] 1000[place], [id number], [place] tel:[phone] CVR - [facility] No Information 5 Charlie Concepcion. [address] [facility], [address], [place], [place], [id number], [place]. tel:[phone] Office/Outpt E&M Established 15 [facility]- [place] & [facility] MD JEROME, [address] [place] [address] Dr Barrera [facility] [place] H[place], [id number], [place] tel:[phone] CVR - [facility] Localized edemaVenous insufficienc y (chronic) (peripheral) Lymphedema, not elsewhere classifiedLi poedma 5 Axel VALDEZ RVT, AJITH Fox. [address] [place] [address], [id number], [place]. tel:[phone] Referring Provider: Angelo Pinzon, [address] [place] [address], [place], [address]. tel:[phone] [facility] MD JEROME, [address] [place] [address] Dr Barrera 1000Suite 1000[place], [id number], [place] tel:[phone] [facility] Chronic venous hypertension (idiopathic) with other complication s of bilateral lower extremity 5 Axel VALDEZ RVT, AJITH Fox. [address] [place] [address], [place], [place], [id number], [place]. tel:[phone] Referring Provider: Angelo Pinzon, [address] [place] [address], [place], [address]. tel:[phone] [facility], [address] [place] [address] Dr Barrera 1000Suite 1000Edgard [place], [id number], [place] tel:[phone] [place] Encounter for follow-up examination after completed treatment for conditions other than malignant neoplasmPain in left leg Feb- 5 Axel VALDEZ RVT, AJITH Fox. [address] [place] [address], [address], [id number], [place]. tel:[phone] Referring Provider: Angelo Pinzon, [address] [place] [address] [place] [address], [place] [address], [place], [address]. tel:[phone] [facility], [address] [place] [address] Dr Barrera 1000Suite 1000[place], [id number], [place] tel:[phone] CVR - [facility] Varicose veins of left lower extremity with other complication s Feb- 5 Axel VALDEZ RVT, AJITH Fox. [facility], [address], [id number], [place]. tel:[phone] Referring Provider: Angelo Pinzon, [facility] [place] [address] [place] [address], [place], [address]. tel:[phone] [facility], [address] [place] [address] Dr Barrera 1000Suite [place] Hilario [place], [id number], [place] tel:[phone] CVR - [facility] Encounter for follow-up examination after completed treatment for conditions other than malignant neoplasmVari cose veins of right lower extremity with pain Feb- 5 Axel VALDEZ RVT, AJITH Fox. [address] [place] [address], [address], [id number], [place]. tel:[phone] Referring Provider: Angelo Pinzon, [address] [place] [address] [place] [address], [place] [address], [place], [address]. tel:[phone] Mauricio [facility], [address] [place] [address] Dr [address] 1000[place], [place], [id number], [place] tel:[phone] [place] Varicose veins of right lower extremity with other complication s 5 Axel VALDEZ RVT, AJITH Fox. [address] [place] [address], [id number], [place]. tel:[phone] Referring Provider: Angelo Pinzon, [address] [place] [address], [place], [address]. tel:[phone] [facility], [address] [place] [address] Dr Barrera 1000[facility] 999Edgard [place], [id number], [place] tel:[phone] [facility] No Information 5 Axel VALDEZ RVT, AJITH Fox. [address] [place] [address], [id number], [place]. tel:[phone] [facility], [address] [place] [address] [address] Bar[address] [place] [address] [place] Hilario MD, [id number], [place] tel:[phone] CVR - [facility] Chronic venous hypertension (idiopathic) with inflammation of right lower extremity 5 Axel VALDEZ, LUCY, AJITH Fox. [address] [place] [address], [id number], [place]. tel:[phone] Referring Provider: Angelo Pinzon, [address] [place] [address], [place], [address]. tel:[phone] Offic/outpt E&m Estab 5 Min Trial- Telemedicine CT & [place] [facility], [address] [place] [address] Dr Barrera 1000[facility] 1000Edgard [place], [id number], [place] tel:[phone] [place] Localized edemaVenous insufficienc y (chronic) (peripheral) 5 Jarocho Suh. [address] [place] [address], [id number], [place]. tel:[phone] Referring Provider: Angelo Pinzon, [address] [facility] [address] [place] [address], [place] [address], [place], [address]. tel:[phone] Offic Cons New/estab Mod 40 Mi- CT & [place] [facility], [address] [place] [address] [facility] 1000Suite 1000, [place], [id number], [place] tel:[phone] CVR - [facility] Chronic venous hypertension (idiopathic) with other complication s of bilateral lower extremityLoc alized edema 5 Axel VALDEZ RVT, AJITH Fox. [address] [place] [address], [id number], [place]. tel:[phone] Referring Provider: Angelo Pinzon, [facility] Main [facility] [address] [place] [address], [place], [address]. tel:[phone] [facility], [address] [place] [address] [address] 1000, [place], [id number], [place] tel:[phone] [facility] Chronic venous hypertension (idiopathic) with other complication s of bilateral lower extremity 5 Axel VALDEZ RVT, AJITH Fox. [address] [place] [address], [place] [address], [place], [place], [id number], [place]. tel:[phone] Referring Provider: Angelo Pinzon, [facility] [address] [place] [address], [place], [address]. tel:[phone] Family History Family Member Type Diagnosis Age At Onset No Information Payers Payer name Insurance type Covered republican ID Doris nickerson([place] [id number] Social History Type Description Quantity Date Captured [...] Information Instructions Date Instruction Additional Infor mation Diet education Related to Body mass index (BMI) 50-59.9 , adult Giving Encouragement to exercise Related to Body mass index (BMI) 50-59.9 , adult Lifestyle education Related to B itzel mass index (BMI) 50-59.9 , adult Compression stocking usage as conservative measure Related to Localized edema Patient education booklet given Related to Localized edema Compression stocking usage as conservative measure Related to Localized edema Patient education booklet given Related to Localized edema Patient education booklet [...]
--- NOTE | ~2025-05-16 | CT_ITS ---
EXAMINATION: CT CHEST WITH CONTRAST CLINICAL INFORMATION: Myasthenia gravis without acute exacerbation COMPARISON: None available. TECHNIQUE: Multidetector volumetric CT imaging of the chest was obtained after the administration of 65 mL of Omnipaque 350 intravenous contrast without immediate adverse reactions. Axial MIP volume rendering provided. Sagittal and coronal reformatted images were obtained. This CT examination was performed using dose optimization techniques as appropriate, variously including the following: *Automated exposure control *Adjustment of mA and/or kV according to patient size (this includes techniques or standardized protocols for targeted exams where dose is matched to indication/reason for exam; i.e. extremities or head) *Use of iterative reconstruction technique FINDINGS: LUNGS: The lungs are clear with no evidence of inflammation or nodules. MEDIASTINUM: There is subtle patchy soft tissue density in the anterior mediastinum without a circumscribed solid mass. PLEURA: There is no pleural effusion. No pleural mass or thickening. AXILLA: No lymphadenopathy. UPPER ABDOMEN: Diffuse fatty changes are present in the liver OSSEOUS STRUCTURES: Unremarkable. CT/CT chest w IV con IMPRESSION: Subtle patchy soft tissue density in the anterior mediastinum 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 No evidence of a thymoma. Fleischner guidelines were followed. Electronically signed by: Mike Cohen MD 05/16/2025 04:25 PM EDT
[2025-05-16] MEDS: iohexoL 350 MG/ML 100 ML INFUS..BTL 65 ML IV (15:30)
== END 2025-05-16 14:34 | disposition home or self-care (01) ==
LOC: HO.CT 14:33
PROVIDERS: PCP Pediatrics; Visit Provider Nurse Practitioner Family
DX: G70.00 Myasthenia gravis without (acute) exacerbation (principal); G47.34 Idiopathic sleep related nonobstructive alveolar hypoventilation; R53.1 Weakness
CPT/HCPCS: 71260; Q9967

== ENCOUNTER → 2025-05-16 14:34 | Outpatient (BNV) | payer OTHER, SELFPAY | PROVIDERS: PCP Pediatrics; Visit Provider Radiology Diagnostic Radiology | DX: G70.00 Myasthenia gravis without (acute) exacerbation (principal) | CPT/HCPCS: 71260 ==

== ENCOUNTER 2025-05-25 15:35 | Outpatient (REF) | payer OTHER, SELFPAY ==
--- OUTSIDE RECORDS SUMMARY | 2025-04-18 06:58 | XMS_ITS | Continuity of Care Document ---
Author Organization [facility] Address [address] [place] [address] Phone Care Team Providers Care Membership Assistant Name Role Phone Charlie VALDEZ, Carlene Pedroza [...] Diagnoses Date Provider Providers Copied on Encounter [facility] MD JEROME, [address] [place] [address] Dr Barrera [facility] 1000[place], [id number], [place] tel:[phone] CVR - [facility] No Information 5 Charlie Concepcion. [address] [facility], [address], [place], [place], [id number], [place]. tel:[phone] Office/Outpt E&M Established 15 [facility]- CT & [facility] For [facility] Caodaism MD JEROME, [address] [place] [address] Dr Barrera [facility] [place], [id number], [place] tel:[phone] CVR - [facility] Localized edemaVenous insufficienc y (chronic) (peripheral) Lymphedema, not elsewhere classifiedLi poedma 5 Axel VALDEZ RVT, AJITH Fox. [address] [place] [address], [id number], [place]. tel:[phone] Referring Provider: Angelo Pinzon, [address] [place] [address], [place], [address]. tel:[phone] [facility] MD JEROME, [address] [place] [address] Dr Barrera 1000Suite 1000[place], [id number], [place] tel:[phone] [facility] Chronic venous hypertension (idiopathic) with other complication s of bilateral lower extremity 5 Axel VALDEZ RVT, AJITH Fox. [address] [place] [address], [place], [place], [id number], [place]. tel:[phone] Referring Provider: Angelo Pinzon, [address] [place] [address], [place], [address]. tel:[phone] [facility]icio For [facility], [address] [place] [address] Dr Barrera 1000Suite 1000Edgard [place], [id number], [place] tel:[phone] CVR - [place] Encounter for follow-up examination after completed treatment for conditions other than malignant neoplasmPain in left leg Feb- 5 Axel VALDEZ RVT, AJITH Fox. [address] [place] [address], [address], [id number], [place]. tel:[phone] Referring Provider: Angelo Pinzon, [address] [place] [address] [place] [address], [place] [address], [facility] [place], [address]. tel:[phone] [facility], [address] [place] [address] Dr Barrera 1000Suite 1000Edgard [place], [id number], [place] tel:[phone] CVR - [facility] Varicose veins of left lower extremity with other complication s Feb- 5 Axel VALDEZ RVT, AJITH Fox. [facility], [address], [id number], [place]. tel:[phone] Referring Provider: Angelo Pinzon, [facility] [place] [address] [place] [address], [place], [address]. tel:[phone] Mauricio James Vein Caodaism [facility], [address] [place] [address] Dr Barrera 1000Suite [place] Hilario MD, [id number], [place] tel:[phone] CVR - [facility] Encounter for follow-up examination after completed treatment for conditions other than malignant neoplasmVari cose veins of right lower extremity with pain Feb- 5 Axel VALDEZ RVT, AJITH Fox. [address] [place] [address], [address], [id number], [place]. tel:[phone] Referring Provider: Angelo Pinzon, [address] [place] [address] [place] [address], [place] [address], [place], [address]. tel:[phone] Mauricio James Vein Caodaism [facility], [address] [place] [address] Dr [address]Suite 1000[place], [place], [id number], [place] tel:[phone] CVR - [place] Varicose veins of right lower extremity with other complication s 5 Axel VALDEZ RVT, AJITH Fox. [address] [place] [address], [id number], [place]. tel:[phone] Referring Provider: Angelo Pinzon, [address] [place] [address], [facility] [place], [address]. tel:[phone] [facility], [address] [place] [address] Dr Barrera 1000[facility] 999Edgard [place], [id number], [place] tel:[phone] [facility] - [place] No Information 5 Axel VALDEZ RVT, AJITH Fox. [address] [place] [address], [id number], [place]. tel:[phone] [facility], [address] [place] [address] [place] [address] Ed[place] Hilario [place], [id number], [place] tel:[phone] CVR - [facility] Chronic venous hypertension (idiopathic) with inflammation of right lower extremity 5 Axel VALDEZ, LUCY, AJITH Fox. [address] [place] [address], [id number], [place]. tel:[phone] Referring Provider: Angelo Pinzon, [address] [place] [address], [facility] [place], [address]. tel:[phone] Offic/outpt E&m Estab 5 Min Trial- Telemedicine CT & [place] [facility], [address] [place] [address] Dr Barrera 1000[facility] 1000Edgard [place], [id number], [place] tel:[phone] [facility] - [place] Localized edemaVenous insufficienc y (chronic) (peripheral) 5 Jarocho Suh. [address] [place] [address], [id number], [place]. tel:[phone] Referring Provider: Angelo Pinzon, [address] [facility] [address] [place] [address], [place] [address], [place], [address]. tel:[phone] Offic Cons New/estab Mod 40 Mi- CT & [place] [facility], [address] [place] [address] [facility] 1000Suite 1000, [place], [id number], [place] tel:[phone] CVR - [facility] Chronic venous hypertension (idiopathic) with other complication s of bilateral lower extremityLoc alized edema 5 Axel VALDEZ RVT, AJITH Fox. [address] [place] [address], [id number], [place]. tel:[phone] Referring Provider: Angelo Pinzon, [facility] Main [facility] [address] [place] [address], [place], [address]. tel:[phone] [facility], [address] [place] [address] [address] 1000, [place], [id number], [place] tel:[phone] [facility] Chronic venous hypertension (idiopathic) with other complication s of bilateral lower extremity 5 Axel VALDEZ RVT, AJITH Fox. [address] [place] [address], [place] [address], [place], [place], [id number], [place]. tel:[phone] Referring Provider: Angelo Pinzon, [facility] [address] [place] [address], [place], [address]. tel:[phone] Family History Family Member Type Diagnosis Age At Onset No Information Payers Payer name Insurance type Covered constitution party ID Doris nickerson(s[employer] [place] [id number] Social History Type Description Quantity Date Captured [...]
--- OUTSIDE RECORDS SUMMARY | 2025-05-25 15:39 | XMS_ITS | Data Portability ---
Author Organization [facility], Main Office Address [address] [facility] [address] [place] [address] Care Team Providers Care [employer] Name Role Phone ANGELO RING Primary Care Provider SVITLANA RUBIN OTHER AIYANA OBREGON Neurologist [facility] Chemical Blender [facility] WOMEN'S HEALTH SCHEDULING DEPT Preschool Teacher'S Assistant [facility] Beater Room Supervisor [phone] IRINEO REYNA Vascular Surgeon [phone] [facility] Living Coach [phone] Assessment No assessment recorded. Plan of Treatment Reminders Order Date Submit Date Provider Last Modified By Organization Details Last Modified Time Details Appointments FOLLO W UP 2024 10:00A M Angelo Ring MD Not available Not available Not available PE EST 2024 08:30A M Angelo Ring MD Not available Not available Not available Lab HbA1c (hemo globi n A1c), blood 2024 025 RICK [facility] (Centralized Electronic Ordering - All Locations), Patient Can Go To The Location Of Their Choice, [address] 04/08/2025 08:07:19 strep group A, DNA, swab 2024 025 RICK In-Office Order, Internal Use Only DO Not Attach Compendium DO Not Attach Compendium, Do Not Delete/merge, [id number] 02/16/2025 10:47:11 CMP, serum or plasm a 2023 024 RICK [facility], [address], [address], [place], [address], 09/20/2024 13:43:27 LDL, direc t, serum 2023 RICK [facility] (Centralized Electronic Ordering - All Locations), Patient Can Go To The Location Of Their Choice, 12/07/2024 06:07:23 HbA1c (hemo globi n A1c), blood 2023 024 RICK [facility], [address], [address], [place], [address], 12/07/2024 06:07:24 T3, free, serum or plasm a 2023 RICK [facility] (Centralized Electronic Ordering - All Locations), Patient Can Go To The Location Of Their Choice, 12/07/2024 06:07:26 unlis rafia lab - TSH refle x to t4f 2023 RICK [facility] (Centralized Electronic Ordering - All Locations), Patient Can Go To The Location Of Their Choice, 12/07/2024 06:07:25 urina lysis , compl ete 2023 024 [email or web address] [facility], [address], [address], [place], [address], 04/06/2025 09:16:49 Referral physi barry thera pist refer ral - for right pena lofem oral pain. 2024 [email or web address] [facility], [address] [place] [address], [place], [address], 04/07/2025 15:39:47 physi barry medic ine and rehab ilita tion refer ral - for eval of chron ic knee pain with unrem arkab le xray. 2024 GARY Be MD, [address], [address], [place], [address], 05/17/2025 14:14:01 weigh t manag ement refer ral - For weigh t manag ement 2024 025 [facility], [address] [place] [address] Dr, [address], [place], [address], 05/06/2025 12:31:44 vein speci alist refer ral - rule out venou s insuf ficie ncy in pt with leg pain/ swell ing 2024 025 RICK Reyna MD, [address] [facility], [address], [place], [address], 12/10/2024 08:50:[address] refer ral - Patie nt to sched ule 2023 024 kenneth Not available 03/07/2025 10:30:46 gastr oente rolog ist refer ral - Needs colon cance r scree loli 2023 024 [email or web address] Moe Bowen MD, [address] [facility], [place], [address], 10/11/2024 09:28:36 Procedures colon oscop y scree loli (PROC ) 2023 024 [facility], [address] [facility], [address], [place], [address], 09/07/2024 11:05:37 Surgeries None recor ded. Imaging XR, knee, 3 view - to asses s arthr itis burde n in pt with pain 2024 025 [facility], [address], [place], [address], 04/08/2025 09:07:31 MAMMO , scree loli, bilat eral - Perfo rm Diagn ostic Mammo gram and Breas t Ultra sound if neede d / Perfo rm Ultra sound Guide d Aspir ation and/o r Merle t Rebecca y shady arabella nted 2023 024 [facility], [address] [place], [address], 01/06/2025 09:45:37 Medication Orders Zepbo und 12.5 mg/0. 5 mL subcu taneo us pen injec tor 2024 [facility] [phone] [place], [address], 04/12/2025 16:18:33 ondan setro n 4 mg disin tegra ting table t 2024 025 [facility]/Pharmacy #1130, [phone] [place], [address], 02/28/2025 05:01:00 Zepbo und 10 mg/0. 5 mL subcu taneo us pen injec tor 2024 025 [facility]/Pharmacy #1130, [phone] [place], [address], 02/22/2025 15:29:13 Zepbo und 5 mg/0. 5 mL subcu taneo us pen injec tor 2023 024 [facility]/Pharmacy #1130, [phone] [place], [address], 10/22/2024 15:00:19 Patient TargetsNo targets recorded. Patient Instructions Encounter Date Encounter Id Patient Instructions Last Modified By Organization Details Last Modified Time 09/07/2024 [id number] depression treatment: care instructions suzy Not available 09/07/2024 09:46:41 Cervical Cancer Screening suzy Not available 09/07/2024 09:46:41 prediabetes: car e instructions suzy Not available 09/07/2024 09:46:41 body mass index: care instructions suzy Not available 09/07/2024 09:46:40 learning about healthy weight awychowski Not available 09/07/2024 09:46:41 starting a weigh t loss plan: care instructions awychowski Not available 09/07/2024 09:46:40 Nutrition Referr al and Weight Management Follow-up Information awychowski Not available 09/07/2024 09:46:40 learning about colon cancer awychowski Not available 09/07/2024 09:46:40 high blood pressure: care instructions awychowski Not available 09/07/2024 09:46:41 learning about high blood pressure awychowski Not available 09/07/2024 09:46:40 12/07/2024 [id number] high blood pressure: care instructions awychowski Not available 12/07/2024 11:46:40 learning about high blood pressure awychowski Not available 12/07/2024 11:46:40 02/16/2025 [id number] food poisoning: care instructions jthabet Not available 02/16/2025 12:19:59 gastroenteritis: care instructions jthabet Not available 02/16/2025 12:19:59 oral rehydration : care instructions jthabet Not available 02/16/2025 10:40:27 dehydration: car e instructions jthabet Not available 02/16/2025 10:40:27 To call or retur n for worsening or concerns jthabet Not available 02/16/2025 10:34:50 02/22/2025 [id number] depression treatment: care instructions awychowski Not available 02/22/2025 15:29:25 high blood pressure: care instructions awychowski Not available 02/22/2025 15:29:25 learning about high blood pressure awychowski Not available 02/22/2025 15:29:25 When You Want to Lose Weight: Care Instructions awychowski Not available 02/22/2025 15:29:25 04/07/2025 [id number] patellofemoral pain syndrome: care instructions awychowski Not available 04/07/2025 15:34:04 body mass index: care instructions awychowski Not available 04/07/2025 15:34:04 learning about healthy weight awychowski Not available 04/07/2025 15:34:05 When You Want to Lose Weight: Care Instructions awychowski Not available 04/07/2025 15:34:04 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 Preschool Teacher'S Assistant Referral for Sc reening for malignant neoplasm of cervix Patient to schedule Referring Physician: Family Celeste Murillo, Encounter Date: 09/07/2024 Living Coach Referral for Screening for malignant neoplasm of colon Needs colon cancer screening Referring Physician: Family Celeste Murillo, Encounter Date: 09/07/2024 Vein Specialist Referral for Pain in bilateral legs rule out venous insufficiency in pt with leg pain/swelling Referring Physician: Family Celeste Murillo, Encounter Date: 12/07/2024 Weight Management Referral f or Body mass index 40+ - severely obese medical weight loss management For weight management Referring Physician: Family Celeste Murillo, Encounter Date: 04/07/2025 Physical Therapist Referral for Pain of knee region for right patellofemoral pain. Referring Physician: Family Celeste Murillo, Encounter Date: 04/07/2025 Physical Medicine And Rehabi litation Referral for Pain of knee region for eval of chronic knee pain with unremarkable xray. Referring Physician: Family Celeste Murillo, Encounter Date: 04/07/2025 Results Created Date Observation Date Name Description Value Unit Range Abnormal Flag Note LastModifiedBy Organization Detail LastModifiedTime 12/03/19 25 12/04/2024 COMP. METAB OLIC PANEL (14) glucose 133 mg/dL 70-99 above high normal Not Available [facility] ([facility]) [address] [place], [address], 12/07/2024 06:07:22 12/03/19 25 12/04/2024 COMP. METAB OLIC PANEL (14) BUN 12 mg/dL 6-24 normal Not Available [facility] ([facility]) [address] [place], [address], 12/07/2024 06:07:22 12/03/19 25 12/04/2024 COMP. METAB OLIC PANEL (14) creatinine 0.77 mg/dL 0.57-1 .00 normal Not Available [facility] ([facility]) [address] [place], [address], 12/07/2024 06:07:22 12/03/19 25 12/04/2024 COMP. METAB OLIC PANEL (14) eGFR 97 mL/mi n/1.7 3 >59 normal Not Available [facility] ([facility]) [address] [place], [address], 12/07/2024 06:07:22 12/03/19 25 12/04/2024 COMP. METAB OLIC PANEL (14) BUN/creatini ne ratio 16 9-23 normal Not Available [facility] ([facility]) [address] [place], [address], 12/07/2024 06:07:22 12/03/19 25 12/04/2024 COMP. METAB OLIC PANEL (14) sodium 143 mmol/ L 134-14 4 normal Not Available [facility] ([facility]) [address] [place], [address], 12/07/2024 06:07:22 12/03/19 25 12/04/2024 COMP. METAB OLIC PANEL (14) potassium 4.6 mmol/ L 3.5-5. 2 normal Not Available [facility] ([facility]) [address] [place], [address], 12/07/2024 06:07:22 12/03/19 25 12/04/2024 COMP. METAB OLIC PANEL (14) chloride 106 mmol/ L 96-106 normal Not Available [facility] ([facility]) [address] [place], [address], 12/07/2024 06:07:22 12/03/19 25 12/04/2024 COMP. METAB OLIC PANEL (14) carbon dioxide, total 16 mmol/ L 20-29 below low normal Not Available [facility] ([facility]) [address] [place], [address], 12/07/2024 06:07:22 12/03/19 25 12/04/2024 COMP. METAB OLIC PANEL (14) calcium 10.1 mg/dL 8.7-10 .2 normal Not Available [facility] ([facility]) [address] [place], [address], 12/07/2024 06:07:22 12/03/19 25 12/04/2024 COMP. METAB OLIC PANEL (14) protein, total 7.2 g/dL 6.0-8. 5 normal Not Available [facility] ([facility]) [address] [place], [address], 12/07/2024 06:07:22 12/03/19 25 12/04/2024 COMP. METAB OLIC PANEL (14) albumin 4.8 g/dL 3.9-4. 9 normal Not Available [facility] ([facility]) [address], [place], [address], 12/07/2024 06:07:22 12/03/19 25 12/04/2024 COMP. METAB OLIC PANEL (14) globulin, total 2.4 g/dL 1.5-4. 5 Not Available [facility] ([facility]) [address] [place], [address], 12/07/2024 06:07:22 12/03/19 25 12/04/2024 COMP. METAB OLIC PANEL (14) bilirubin, total <0.2 mg/dL 0.0-1. 2 Not Available [facility] ([facility]) [address] [place], [address], 12/07/2024 06:07:22 12/03/19 25 12/04/2024 COMP. METAB OLIC PANEL (14) alkaline phosphatase 69 IU/L 44-121 normal Not Available [facility] ([facility]) [address], [place], [address], 12/07/2024 06:07:22 12/03/19 25 12/04/2024 COMP. METAB OLIC PANEL (14) AST (SGOT) 26 IU/L 0-40 normal Not Available [facility] ([facility]) [address] [place], [address], 12/07/2024 06:07:22 12/03/19 25 12/04/2024 COMP. METAB OLIC PANEL (14) ALT (SGPT) 33 IU/L 0-32 above high normal Not Available [facility] ([facility]) [address] [place], [address], 12/07/2024 06:07:22 12/03/19 25 12/04/2024 LDL RUTH STERO L (DIRE CT) LDL chol. (direct) 132 mg/dL 0-99 above high normal Not Available [facility] ([facility]) [address], [place], [address], 12/07/2024 06:07:23 12/03/19 25 12/04/2024 LDL RUTH STERO L (DIRE CT) LDL direct comment: PRESS BOX CUSTODIAN Not Available [facility] ([facility]) [address] [place], [address], 12/07/2024 06:07:23 12/03/19 25 12/04/2024 HEMOG LOBIN A1C hemoglobin A1C 6.1 % 4.8-5. 6 above high normal Predi abete s: 5.7 - 6.4 Diabe rema: >6.4 Glyce margarito contr ol for adult s with diabe rema: <7.0 Not Available [facility] ([facility]) [address] [place], [address], 12/07/2024 06:07:24 12/03/19 25 12/04/2024 TSH REFLE X TO T4F TSH 0.715 uIU/m L 0.450- 4.500 normal Not Available [facility] ([facility]) [address], [place], [address], 12/07/2024 06:07:25 12/03/19 25 12/04/2024 TRIIO DOTHY ANGEL E (T3), FREE triiodothyro nine (T3), free 4.2 pg/mL 2.0-4. 4 normal Not Available [facility] ([facility]) [address], [place], [address], 12/07/2024 06:07:26 12/03/19 25 12/07/[address] PROBL EM request problem COMMEN T Test not perfo rmed. Patie nt was unabl e to provi de a self- colle cted speci men for the reque sted testi ng. The follo wing test( s) were not perfo rmed: TEST: 69820 2 Urina lysis , Compl ete Not Available [facility] ([facility]) [address], [place], [address], 12/07/2024 06:07:27 02/17/2002/16/2025 strep group A, DNA, swab ID NOW Strep A 2 (rapid molecular test) negati ve Not Available In-Office Order Internal Use Only DO Not Attach Compendium DO Not Attach Compendium, Do Not Delete/merge, [id number] 02/16/2025 10:34:12 04/07/2004/08/2025 HEMOG LOBIN A1C hemoglobin A1C 6.0 % 4.8-5. 6 above high normal Predi abete s: 5.7 - 6.4 Diabe rema: >6.4 Glyce margarito contr ol for adult s with diabe rema: <7.0 Not Available [facility] ([facility]) [address], [place], [address], 04/08/2025 08:07:19 12/10/19 25 12/09/2024 US, kelly x, samir s, oziel huff, compl ete No observ ation record ed. [facility] [address], [place], [address], 12/14/2024 07:33:11 01/06/20 25 01/06/2025 MAMMO , [...] (Negat kathy) Lay letter mailed to bg t WSN: [id number] Orderi ng Physic mauro: Angelo Hernandez Dictat ed By: Zain Camacho MD Dictat ed Date/T jay jay: 9:40 am Review ed By: Zain Camacho MD Signed By: Zain Camacho MD Signed Date/T jay jay: 9:40 am Transc ribed By: FLOYD Transc riptio n Date/T jay jay: 9:40 am Birads : Patidanielito t Class: Outpat ient [facility] (Outpt Imaging) [address], [place], [address], 01/06/2025 11:27:56 01/06/20 25 01/06/2025 MAMMO , scree loli, bilat eral No observ ation record ed. [id number] [facility] [address] , [place], [address], 01/06/2025 11:28:21 04/08/20 25 04/08/2025 XR, knee, 3 view Knee 3 Views Right Reason : pain COMPAR EVELYN: 07/26/20 21 FINDIN GS: No bone lesion s or fractu res. No arthri tic change s. No joint effusi on, osteoc hondra l defect s or intra- articu lar loose bodies . IMPRES LUCIA: Normal . WSN: [id number] Orderi ng Physic mauro: Angelo Hernandez Dictat ed By: Asif qiu MD, Angeli warner Dictat ed Date/T jay jay: 9:04 am Review ed By: Asif qiu MD, Angeli warner Signed By: Asif qiu MD, Angeli warner Signed Date/T jay jay: 9:04 am Transc ribed By: CSB Transc ribed Date/T jay jay: 9:03 am Patien t Class: Outpat ient [facility] (Outpt Imaging) [address], [place], [address], 04/12/2025 10:42:10 04/15/20 25 04/14/2025 samir loja study , lower extre mity, compl ete No observ ation record ed. [facility] [address] [facility] [address], [place], [address], 04/16/2025 09:19:46 05/16/20 25 05/16/2025 CT, chest , w/ contr ast No observ ation record ed. [facility] (Medical Records) [address] [facility], [place], [address], 05/18/2025 10:55:03 Result Notes Documentation Provider Name and Address Organization Details Recorded Time Mammo, Screening, Digital, Bilateral : PROCEDURE: MM Digital Mammo Screening INDICATION: Screening. No known palpable abnormalities. COMPARISON: Dating back to 12/05/2021 TECHNIQUE: Full-field digital CC and MLO 3D tomosynthesis images of both breasts were acquired. Computer-aided detection (CAD) was utilized in the interpretation of this study. DENSITY: The breast tissue is almost entirely fatty. FINDINGS: No suspicious masses, suspicious microcalcifications, or areas of architectural distortion are seen in either breast to suggest malignancy. IMPRESSION: No mammographic evidence of malignancy. RECOMMENDATION: Annual mammographic screening BI-RADS: 1 (Negative) Lay letter mailed to patient WSN: [id number] Ordering Physician: Angelo Ring Dictated By: Zain Camacho MD Dictated Date/Time: 01/06/25 9:40 am Reviewed By: Zain Camacho MD Signed By: Zain Camacho MD Signed Date/Time: 01/06/25 9:40 am Transcribed By: FLOYD [employer] Director Date/Time: 01/06/25 9:40 am Birads: Patient Class: Outpatient Lizeth her, [facility] 01/06/2025 11:27:56 Xr, Knee, 3 View : Knee 3 Views Right Reason: pain COMPARISON: 07/26/2021 FINDINGS: No bone lesions or fractures. No arthritic changes. No joint effusion, osteochondral defects or intra-articular loose bodies. IMPRESSION: Normal. WSN: [id number] Ordering Physician: Angelo Ring Dictated By: Vic Hammond MD Dictated Date/Time: 04/08/25 9:04 am Reviewed By: Vic Hammond MD Signed By: Vic Hammond MD Signed Date/Time: 04/08/25 9:04 am Transcribed By: FLOYD Transcribed Date/Time: 04/08/25 9:03 am Patient Class: Outpatient Angelo Ring MD [address], [address], [facility] 04/11/2025 23:37:07 Problems Name Problem SNOMED Code Status Onset Date Resolution Date Notes Provider Name and Address Organization Details Recorded Time Anaphyla xis 87598522 Completed 201305/31/2014 STORY: UNKNOWN CAUSE OCT 2012; RECORDED 02/25/20 14 8:52AM BY ANGELO Siegel MD, ANNOTATI ON/ADDEN DUM Angelo Ring MD [address], [address] , [facility] 6 21:33:38 Anxiety state 805999324 Completed 201303/28/2016 Angelo Ring MD [address] [facility] [address], [place], [address] , [facility] 6 21:33:38 Patient status finding [id number] Completed 201205/31/2014 RECORDED 05/21/20 13 2:50PM BY GANESH HOPE MA, ANNOTATI ON/ADDEN DUM Angelo Ring MD [address] [facility] [address], [place], [address] , [facility] 6 21:33:38 Autoimmu ne disease 88451052 Completed 201305/31/2014 RECORDED 02/25/20 14 8:52AM BY ANGELO Siegel MD, ANNOTATI ON/ADDEN DUM Angelo Ring MD [address] [facility] [address], [place], [address] , [facility] 6 21:33:38 Hashimot o thyroidi tis [id number] Active 2013 Not Available [facility] 13:43:23 Screenin g for malignan t neoplasm of cervix Completed 201305/31/2014 RECORDED 02/25/20 14 8:30AM BY CASSIA MCPHERSON MA, ANNOTATI ON/ADDEN DUM Angelo Ring MD [address] [facility] [address], [place], [address] , [facility] 21:33:38 Chest pain 78740781 Completed 201205/31/2014 IMPRESSI ON: SYMPTOMS C/W EIA POSSIBLE ANXIETY COMPONEN T. WILL TRY PRE EXERCISE MDI. ADVISED TO CALL IF PERSISTA NT/WORSE .; RECORDED 05/21/20 13 2:50PM BY GANESH HOPE MA, ANNOTATI ON/ADDEN DUM Angelo Ring MD [address] [facility] [address], [place], [address] , [facility] 6 21:33:38 Cough 48050535 Completed 201312/09/2014 IMPRESSI ON: LUNGS ARE CLEAR, ALREADY ON AUGMENTI N FOR SINUSITI S WILL COMPLETE COURSE, REC. MUCOLYTI CS/HYDRA TION; RECORDED 03/03/20 14 11:53AM BY LIZZETH PATHAK PA-C, OFFICE VISIT Angelo Ring MD [address] [facility] [address], [place], [address] , [facility] 6 21:33:38 Depressi ve disorder 58194749 Completed 201303/28/2016 Angelo Ring MD [address] [facility] [address], [place], [address] , [facility] 6 21:33:38 Recurren t major depressi ve episodes , in full remissio n Completed 201311/05/2019 Removal Reason: negative Angelo Ring MD [address] [facility] [address], [place], [address] , [facility] 9 09:34:27 Lyme disease 43141950 Completed 201305/31/2014 IMPRESSI ON: SXS CONSISTE NT WITH EARLY LYME, WILL TREAT. 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 I DO NOT SEE ANY BELLS PALSY AT THIS POINT. REASSURE Shine ZARATE THAT SHE HAS NO DROOP; RECORDED 02/25/20 14 8:52AM BY ANGELO Siegel MD, ANNOTATI ON/ADDEN DUM Angelo Ring MD [address] [facility] [address], [place], [address] , [facility] 21:33:38 Malaise and fatigue 567183181 Completed 201205/31/2014 IMPRESSI ON: COUPLED TO CHEST [...] 13 4:18PM BY CASSIA MCPHERSON MA, ANNOTATI ON/ADDDANIELITO Ring MD [address] [facility] [address], [place], [address] , [facility] 6 21:33:38 Influenz a vaccine needed [id number] Completed 201205/31/2014 RECORDED 07/31/20 13 10:03AM BY RAMYA BENTON I, NURSE VISIT Angelo Ring MD [address] [facility] [address], [place], [address] , [facility] 6 21:33:38 Adult health examinat ion Completed 201305/31/2014 IMPRESSI ON: IMMUNIZA TION STATUS UTD WILL SCREEN BASED ON RISK FACTORS. REGULAR DENTAL CARE AND SEATBELT USE ADVISED. DISTRACT ED DRIVING DISCUSSE D. CERVICAL CANCER SCREENIN G UTD. ADVANCE DIRECTIV ES DISCUSSDanica D AND IN PLACE.; RECORDED 03/03/20 14 9:43AM BY CALEB HENRY MA, ANNOTATI ON/PINEDA Ring MD [address] [facility] [address], [place], [address] , [facility] 6 21:33:38 Celiac disease 667945730 Completed 201304/02/2017 STORY: BLOOD TESTS NEGATIVE FOR CELIAC Angelo Ring MD [address] [facility] [address], [place], [address] , [facility] 10:21:10 History of infectio us disease 233417906 Completed 201205/31/2014 RECORDED 01/28/20 13 4:18PM BY CASSIA MCPHERSON MA, ANNOTATI ON/ADDDANIELITO Ring MD [address] [address], [place], [address] , [facility] 21:33:38 Obesity 093113389 Completed 201304/02/2017 IMPRESSI ON: POTENTIA L [facility] DISCUSSE D. INCREASE D PHYSICAL ACTIVITY AND APPROPRI ATWE DIETARY CHANGES ADVISED. ; RECORDED 03/03/20 14 9:43AM BY CALEB HENRY MA, OFFICE VISIT Cherie Hannah PA-C [address] [address], [place], [address] , [facility] 3 15:22:51 Panic disorder without agorapho litzy 81649845 Completed 201305/31/2014 RECORDED 02/25/20 14 8:52AM BY ANGELO Siegel MD, ANNOTATI ON/ADDEN DUM Angelo Ring MD [address] [address], [place], [address] , [facility] 6 21:33:38 Immuniza tion refused Completed 201205/31/2014 RECORDED 01/28/20 13 4:18PM BY CASSIA MCPHERSON MA, ANNOTATI ON/ADDEN DUM Angelo Ring MD [address] [address], [place], [address] , [facility] 6 21:33:38 Chronic sinusiti s 14870809 Completed 201305/31/2014 IMPRESSI ON: C/W POST VIRAL SECONDAR Y BACTERIA L PROCESS. CALL INB/WORS E.; RECORDED 03/03/20 14 9:43AM BY CALEB HENRY MA, ANNOTATI ON/ADDEN DUM Angelo Ring MD [address] [address], [place], [address] , [facility] 21:33:38 Tachycar effie 1518099 Completed 201205/31/2014 IMPRESSI ON: WILL SCREEN FOR CONDUCTI ON ABNORMAL ITY.; RECORDED 05/21/20 13 2:50PM BY GANESH HOPE MA, ANNOTATI ON/ADDEN DUM Angelo Ring MD [address], [place], [address] , [facility] 21:33:38 Vitamin D deficien cy 30432617 Active 2013 Not Available [facility] 3 13:43:23 Anaphyla xis 81364609 Completed 201306/27/2014 STORY: UNKNOWN CAUSE OCT 2012; RECORDED 02/25/20 14 8:52AM BY ANGELO Siegel MD, ANNOTATI ON/ADDEN DUM Angelo Ring MD [address], [place], [address] , [facility] 21:33:38 Patient status finding [id number] Completed 201206/27/2014 RECORDED 05/21/20 13 2:50PM BY GANESH HOPE MA, ANNOTATI ON/ADDEN DUM Angelo Ring MD [address], [place], [address] , [facility] 21:33:38 Autoimmu ne disease 91989326 Completed 201306/27/2014 RECORDED 02/25/20 14 8:52AM BY ANGELO Siegel MD, ANNOTATI ON/ADDEN DUM Angelo Ring MD [address], [place], [address] , [facility] 21:33:38 Screenin g for malignan t neoplasm of cervix Completed 201306/27/2014 RECORDED 02/25/20 14 8:30AM BY CASSIA MCPHERSON MA, ANNOTATI ON/ADDEN DUM Angelo Ring MD [address] [facility] [address], [place], [address] , [facility] 21:33:38 Chest pain 69831670 Completed 201206/27/2014 IMPRESSI ON: SYMPTOMS C/W EIA POSSIBLE ANXIETY COMPONEN T. WILL TRY PRE EXERCISE MDI. ADVISED TO CALL IF PERSISTA NT/WORSE .; RECORDED 05/21/20 13 2:50PM BY GANESH HOPE MA, CAROLINEATI ON/ADDEN DUM Angelo Ring MD [address] [facility] [address], [place], [address] , [facility] 21:33:38 Lyme disease 24489110 Completed 201306/27/2014 IMPRESSI ON: SXS CONSISTE NT WITH EARLY LYME, WILL TREAT. 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 I DO NOT SEE ANY BELLS PALSY AT THIS POINT. REASSURE Shine ZARATE THAT SHE HAS NO DROOP; RECORDED 02/25/20 14 8:52AM BY ANGELO Siegel MD, ANNOTVICKY ON/ Angelo Ring MD [address] [facility] [address], [place], [address] , [facility] 21:33:38 Malaise and fatigue 913595864 Completed 201206/27/2014 IMPRESSI ON: COUPLED TO CHEST [...] 13 4:18PM BY CASSIA MCPHERSON MA, ANNOTATI ON/ADD DUM Angelo Ring MD [address] [facility] [address], [place], [address] , [facility] 21:33:38 Influenz a vaccine needed [id number] 06 Completed 201206/27/2014 RECORDED 07/31/20 13 10:03AM BY RAMYA BENTON I, NURSE VISIT Angelo Ring MD [address] [facility] [address], [place], [address] , [facility] 21:33:38 Adult health examinat ion Completed 201306/27/2014 IMPRESSI ON: IMMUNIZA TION STATUS UTD WILL SCREEN BASED ON RISK FACTORS. REGULAR DENTAL CARE AND SEATBELT USE ADVISED. DISTRACT ED DRIVING DISCUSSE D. CERVICAL CANCER SCREENIN G UTD. ADVANCE DIRECTIV ES DISCUSSE D AND IN PLACE.; RECORDED 03/03/20 14 9:43AM BY CALEB HENRY MA, ANNOTATI ON/ADDEN DUM Angelo Ring MD [address] [address], [place], [address] , [facility] 21:33:38 History of infectio us disease 878675148 Completed 201206/27/2014 RECORDED 01/28/20 13 4:18PM BY CASSIA MCPHERSON MA, ANNOTATI ON/ADD DUM Angelo Ring MD [address] [address], [place], [address] , [facility] 21:33:38 Panic disorder without agorapho litzy 46858267 Completed 201306/27/2014 RECORDED 02/25/20 14 8:52AM BY ANGELO Siegel MD, ANNOTATI ON/ DUM Angelo Ring MD [address] [address], [place], [address] , [facility] 21:33:38 Immuniza tion refused Completed 201206/27/2014 RECORDED 01/28/20 13 4:18PM BY CASSIA MCPHERSON MA, ANNOTATI ON/ADD DUM Angelo Ring MD [address] [address], [place], [address] , [facility] 21:33:38 Chronic sinusiti s 82844342 Completed 201306/27/2014 IMPRESSI ON: C/W POST VIRAL SECONDAR Y BACTERIA L PROCESS. CALL INB/WORS E.; RECORDED 03/03/20 14 9:43AM BY CALEB HENRY MA, ANNOTATI ON/PINEDA Ring MD [address] [facility] [address], [place], [address] , [facility] 21:33:38 Tachycar effie 7587543 Completed 201206/27/2014 IMPRESSI ON: WILL SCREEN FOR CONDUCTI ON ABNORMAL ITY.; RECORDED 05/21/20 13 2:50PM BY GANESH HOPE MA, ANNOTATI ON/ADDDANIELITO Ring MD [address] [facility] [address], [place], [address] , [facility] 21:33:38 Divertic ulitis of colon 496718869 Completed 201404/02/2017 Angelo Ring MD [address] [facility] [address], [place], [address] , [facility] 10:20:23 Body mass index 30+ - obesity 219563736 Completed 07/06/2020 Cassia Mcpherson MA null, [facility] 0 15:05:27 Pain of multiple joints 19704156 Active Not Available [facility] 3 13:43:23 Mixed anxiety and depressi ve disorder 469563554 Completed 04/02/2017 Angelo Ring MD [address] [facility] [address], [place], [address] , [facility] 10:20:46 Abdomina l pain 46031234 Completed 03/28/2016 Angelo Ring MD [address] [facility] [address], [place], [address] , [facility] 21:33:38 Divertic ular disease 919822108 Active s/p partial colectom y Not Available [facility] 3 13:43:23 Diplopia 35365475 Active Not Available [facility] 3 13:43:23 Floaters in visual field 799685211 Completed 03/28/2016 Angelo Ring MD [address], [place], [address] , [facility] 21:33:38 Headache 96425370 Completed 04/02/2017 Angelo Ring MD [address], [place], [address] , [facility] 10:20:58 Myasthen ia gravis 06794904 Active Not Available [facility] 3 13:43:24 Acne 32062000 Completed 04/02/2017 Angelo Ring MD [address] [facility] [address], [place], [address] , [facility] 10:20:27 Hypergly cemia 14311044 Completed 04/02/2017 Angelo Ring MD [address] [facility] [address], [place], [address] , [facility] 10:21:18 Vitiligo 99094705 Active Not Available [facility] 3 13:43:23 Autoimmu ne polyendo crinopat hy 31061200 Active Not Available [facility] 3 13:43:23 Macrocyt osis 785259839 Active 2018 Not Available [facility] 3 13:43:23 Irritabl e bowel syndrome 83435229 Active 2018 Not Available [facility] 3 13:43:23 Recurren t major depressi on in partial remissio n 55551328 Active 2018 Not Available [facility] 3 13:43:23 Essentia l hyperten lucia 81537355 Active 2019 Not Available [facility] 3 13:43:24 Anti-nuc lear factor detected 023134301 Active 2020 Not Available [facility] 3 13:43:23 Herpes zoster 0728929 Active 2020 Not Available [facility] 3 13:43:23 History of SARS-CoV -2 74250163588 9962601 Active 2021 Not Available [facility] 3 13:43:23 Tinea pedis 2999792 Active 2021 Not Available [facility] 3 13:43:24 Generali zed anxiety disorder 66958197 Active 2021 Not Available [facility] 3 13:43:23 Prediabe rema 348548876 Active 2022 Not Available [facility] 3 13:43:24 Hyperlip idemia 15542898 Active 2022 Not Available [facility] 3 13:43:23 Pain in right heel 90254229189 28863 Completed 202208/05/2023 Angelo Ring MD [address], [place], [address] , [facility] 13:48:40 Candidia sis of vagina 35602686 Completed 202208/05/2023 Angelo Ring MD [address], [place], [address] , [facility] 13:35:30 Snoring 32861719 Completed 202208/05/2023 Angelo Ring MD [address], [place], [address] , [facility] 13:48:55 Obstruct kathy sleep apnea of adult 10314667837 03 Active 2022 Not Available [facility] 3 13:43:23 Morbid obesity 790144760 Active 2022 Not Available [facility] 3 13:43:23 Family history of malignan t melanoma 987623442 Active 2023 Angelo Ring MD [address] [facility] [address], [place], [address] , [facility] 4 17:18:08 Body mass index 40+ - severely obese 693866916 Active 2023 Angelo Ring MD [address] [facility] [address], [place], [address] , [facility] 4 09:39:33 Venous insuffic iency of leg 385161315 Active 2024 Angelo Ring MD [address] [facility] [address], [place], [address] , [facility] 14:24:45 Acute pharyngi tis 316255198 Completed 202402/22/2025 Angelo Ring MD [address] [facility] [address], [place], [address] , [facility] 15:16:34 Moderate dehydrat ion 09503752743 05 Completed 202402/22/2025 Angelo Ring MD [address] [facility] [address], [place], [address] , [facility] 15:16:25 Food-bor ne gastroen teritis 142062991 Completed 202402/22/2025 Angelo Ring MD [address] [facility] [address], [place], [address] , [facility] 15:16:36 Axillary hidraden itis suppurat noah 666974901 Active 2024 Angelo Ring MD [address] [facility] [address], [place], [address] , [facility] 5 15:30:13 Pain of knee region 7074901762 Active 2024 Angelo Ring MD [address], [place], [address] , [facility] 16:11:12 Steatoti c liver disease 750483267 Active 2024 Angelo Ring MD [address], [place], [address] , [facility] 09:22:22 Problem Notes None recorded. Procedures Surgical History Date Name Laterality Status Provider Name and Address Organization Details Recorded Time 01/06/20 25 Most Recent Mammogram completed Lizeth Herrera [facility] 01/06/2025 11:27:53 12/22/19 24 Mammogram both breasts completed Lizzeth Jack MA [facility] 09/07/2024 09:03:27 12/20/19 23 Mammogram both breasts completed Lizzeth Jack MA [facility] 08/05/2023 13:06:43 12/05/19 22 Mammogram Screening completed Liyah Sheikh [facility] 12/28/2021 14:01:53 03/19/20 20 Date of Last Pap Smear completed Cassia Mcpherson MA [facility] 07/06/2020 15:07:41 06/21/20 18 Cholecystectomy completed Angelo Ring MD [address], [place], [address], [facility] 06/23/2018 10:10:03 12/26/19 16 Gastrointestinal Surgery completed Angelo Ring MD [address] [facility], [place], [address], [facility] 12/27/2015 08:41:03 03/15/20 11 Date of Last Colonoscopy completed Cassia Mcpherson MA [facility] 03/28/2016 08:32:59 03/15/20 11 Colonoscopy completed Cassia Mcpherson MA [facility] 03/28/2016 08:33:00 Dxa bone density study completed Cassia Mcpherson MA [facility] 04/02/2017 09:39:01 Imaging Results None recorded. Procedure Notes None recorded. Medical Equipment None Reported. Allergies Allergen ID Allergen Name Allergen Category Reaction Reaction Severity Criticality Documentation Date Start Date Code Code System Note Provider Name and Address Organization Details Recorded Time 65334 Substance with sulfonami de structure and antibacte rial mechanism of action (substanc e) medicatio n hives moderate Not available 12/09/20142013 90178 8003 SNOMED REACT ION: HIVES Lily Carroll taina [facility] 5 11:01:46 44760 acetamino phen / oxycodone medicatio n other mild Not available 12/09/2014 77390 3 RxNorm agita tion Angelo Ring MD [address], [place], [address], [facility] 08:52:25 33399 Dilaudid medicatio n rash mild Not available 01/03/20162015 48664 3 RxNorm hives ,rash , itchi ness, repor rafia from pt ED visit Flori Springer taina [facility] 6 08:13:55 36554 erythromy morro medicatio n other moderate Not available 03/28/20162015 4053 RxNorm MG flare Angelo Ring MD [address], [place], [address], [facility] 09:06:27 16866 amoxicill in medicatio n abdominal pain severe Not available 02/01/20192018 723 RxNorm 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, 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 [employer] taina [facility] 9 09:36:51 21561 Bactrim medicatio n Not available Not available Not available 02/28/2020 45411 9 RxNorm Gita Money taina [facility] 0 10:20:34 64388 cephalexi n medicatio n rash moderate Not available 12/24/2022 2231 RxNorm Lizzeth KAYLI Hunter, [facility] 3 14:38:30 04464 bupropion Not available other mild Not available 12/24/2022 54998 RxNorm eleva rafia BP Not Available [facility] 3 17:58:18 4228 clindamyc in hydrochlo ride medicatio n hives moderate Not available 05/31/20142013 26249 RxNorm KAYLI Baron, [facility] 6 08:28:39 4229 Paxil medicatio n Not available Not available Not available 05/31/20142013 22346 8 RxNorm REACT ION: ECCHY SIMON Ring MD [address] [facility] [address], [facility] [place], [address], [facility] 10:12:34 Medications Name Sig Start Date [...] t Available tizanidin e 2 mg tablet Take 1 tablet every 6 hours by oral route as needed for 5 days. 04/06 completed Not Available Not Available Not Available cetirizin e 10 mg tablet DAILY 11/02 completed RECORDED 11/04/20 12 2:36PM BY DENISSE HOANG, MEDICATI ON AUTO-JANET CTIVATIO N; Not Available [...] completed RECORDED 11/04/20 12 2:36PM BY DENISSE HOANG, MEDICATI ON AUTO-JANET CTIVATIO N; Not Available [...] MOUTH TWICE A DAY FOR 30 DAYS ADMINIST ER 6 HOURS APART active Not Available Not Available No t Available zinc 50 mg tablet Take 1 tablet every day by oral route. 04/03 completed Not Available Not Available Not Available bisacodyl 5 mg tablet,de layed release TAKE 4 TABLETS THE DAY BEFORE PROCEDUR E ORALLY ONCE A DAY 1 04/07 completed Not Available Not Available Not Available ranitidin e 150 mg capsule TWO TIMES DAILY 11/02 completed RECORDED 11/04/20 12 2:36PM BY DENISSE HOANG, MEDICATI ON AUTO-JANET CTIVATIO N; Not Available [...] Not Available Not Available Not Avai lable Strattera 40 mg capsule Take 1 capsule every day by oral route for 30 days. 2022 active Not Available Not Available Not Avai [...] completed Not Available Not Available Not Available GaviLyte- G 236 gram-22.7 4 gram-6.74 gram-5.86 gram oral solution TAKE 4000ML ORALLY PATIENT HAS INSTRUCT IONS 2 DAYS 04/07 completed Not Available Not Available Not Available [...] Relief 50 mcg/actua tion nasal spray,[employer] [place] 1 spray every day by intranas al [...] injector Inject 1 mg every week by subcutan eous route for 28 days. 07/08 completed Not [...] 12.5 mg/0.5 mL subcutane ous pen injector Inject 0.5 mL every week by sub-q route as directed for 28 days. 04/12 completed has not lost enough weight on highest dose Not Available Not Available Not Available Zepbound 7.5 mg/0.5 mL subcutane ous pen injector Inject 7.5 mg every week by subcutan eous route for 28 days. 12/07 completed Not Available Not Available Not Available Vitals Date Recorded Body height Body mass index (BMI) Body weight Heart rate Oxygen saturation Oxygen saturation in Arterial blood by Pulse oximetry Body temperature Systolic And Diastolic Provider Name and Address Organization Details Last Updated DateTime 5 156.85 cm 51.9 kg/m2 628102. 86 g 96 /min 95 % 95 % 98.4 [degF] 130/82 mm[Hg] Lizzeth Garg [facility] 5 10:58:49 Date Recorded Body height Body mass index (BMI) Body weight Heart rate Oxygen saturation Oxygen saturation in Arterial blood by Pulse oximetry Body temperature Systolic And Diastolic Provider Name and Address Organization Details Last Updated DateTime 5 156.85 cm 49.2 kg/m2 871054. 16 g 107 /min 97 % 97 % 98.2 [degF] 118/84 mm[Hg] Waqas atkins MA [facility] 5 10:17:47 Date Recorded Body height Body mass index (BMI) Body weight Heart rate Oxygen saturation Oxygen saturation in Arterial blood by Pulse oximetry Body temperature Systolic And Diastolic Provider Name and Address Organization Details Last Updated DateTime 5 156.85 cm 50.9 kg/m2 055191. 49 g 81 /min 97 % 97 % 97.6 [degF] 132/89 mm[Hg] Lizzeth [facility] 5 14:50:45 Date Recorded Body height Body mass index (BMI) Body weight Heart rate Oxygen saturation Oxygen saturation in Arterial blood by Pulse oximetry Body temperature Systolic And Diastolic Provider Name and Address Organization Details Last Updated DateTime 5 156.85 cm 49.8 kg/m2 066669. 94 g 97 /min 96 % 96 % 98.1 [degF] 130/86 mm[Hg] Lorenza grissom [facility] 5 14:55:35 Date Recorded Body height Body mass index (BMI) Body weight Heart rate Oxygen saturation Oxygen saturation in Arterial blood by Pulse oximetry Body temperature Systolic And Diastolic Provider Name and Address Organization Details Last Updated DateTime 4 156.85 cm 50.8 kg/m2 701733 g 99 /min 96 % 96 % 98.1 [degF] 118/81 mm[Hg] [facility]eth [facility] 4 09:00:49 Social History Question Answer Notes LastModified by Organizat ion Details LastModified Time Tobacco Smoking Status Never Smoker Not Available [facility] 09/19/2020 03:36:39 Do You Have An Advance Directive? Yes HCP -Jacklyn, Kaela/Mauro Information not available 06/13/2023 Is Blood Transfusion Acceptable In An Emergency? Yes [id number] Information not available 09/19/2020 What Is Your Level Of Caffeine Consumption? Moderate Coffee [id number] Information not available 09/19/2020 How Much Tobacco Do You Chew? None [id number] Information not available 09/19/2020 What Type Of Diet Are You Following? REGULAR Information not available 07/15/2022 Which Illicit Or Recreational Drugs Have You Used? None [id number] Information not available 09/19/2020 Education Post Graduate [...] Or Greater Than 100 Degrees Fahrenheit? No [employer] Information not available 06/28/2020 Are You Or Anyone In Your Household A Health Care Provider Or Emergency Responder? No [employer] Information not available 06/28/2020 To The Best Of Your Knowledge Have You Been In Close Proximity To Any Individual Who Tested Positive For COVID-19? No [employer] Information not available 06/28/2020 *AWV ONLY* Are [...] How Many Children Do You Have? 3 [id number] Information not available 09/19/2020 Do You Use Protection During Sex? No Information not available 07/08/2024 Do You Use Your Seat Belt Or Car Seat Routinely? Yes Information not available 07/15/2022 Seat Belts Used Routinely Yes Information not available 06/13/2023 Are You Sexually Active? Yes [id number] Information not available 09/19/2020 Smoke Alarm In Home Yes Information not available 06/13/2023 Do You Have Smoke And Carbon Monoxide Detectors In Your Home? Yes Information not available 07/15/2022 At What Age Did You Start Smoking Tobacco? 1 [id number] Information not available 09/19/2020 Are You Passively Exposed To Smoke? No Information not available 03/17/2015 How Much Tobacco Do You Smoke? No [id number] Information not available 09/19/2020 Do You Use Sunscreen Routinely? Yes [id number] Information not available 09/19/2020 How Many Years Have You Smoked Tobacco? 0 [id number] Information not available 09/19/2020 Sex: Unknown Functional [...] used smokeless tobacco? 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 [id number] Information not available 09/19/2020 Are you able to walk? YESWOREST Information not available 06/13/2023 Are you able to care for yourself? 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 [id number] Information not available 09/19/2020 Do you or [...] Stones N Hyperthyroidism N Breast Cancer N Lung Disease N COPD N Depression Y Hypothyroidism Y Defects or Inherited Disease N [...] mcg/0.3 mL dose 1 completed Lizeth her [facility] 09/29/2023 09:57:53 COVID-19, mRNA, LNP-S, PF, 30 mcg/0.3 mL dose 1 completed Lizeth her [facility] 09/29/2023 09:57:53 COVID-19, mRNA, LNP-S, PF, 30 mcg/0.3 mL dose 1 completed Lizeth her [facility] 09/29/2023 09:57:53 COVID-19, mRNA, LNP-S, PF, 30 mcg/0.3 mL dose 1 completed Lizeth her [facility] 09/29/2023 09:57:53 Influenza, MDCK, quadrivalent, PF 1 completed Lizeth her [facility] 09/29/2023 09:57:53 Tdap 9 completed Lizeth her [facility] 09/29/2023 09:57:53 Influenza, split virus, quadrivalent, PF 8 completed Lizeth her [facility] 09/29/2023 09:57:53 Influenza, split virus, quadrivalent, PF 0 completed Lizeth her, [facility] 09/29/2023 09:57:53 COVID-19, mRNA, LNP-S, PF, 100 mcg/0.5mL dose or 50 mcg/0.25mL dose 2 completed Lizethedinson Canasnett null, [facility] 09/29/2023 09:57:53 Influenza, split virus, quadrivalent, PF 6 completed Lizeth Herrera null, [facility] 09/29/2023 09:57:53 Influenza, split virus, quadrivalent, PF 9 completed Lizeth Herrera null, [facility] 09/29/2023 09:57:53 Influenza, MDCK, quadrivalent, PF 2 [facility] 09:57:53 COVID-19, mRNA, LNP-S, bivalent, PF, 50 mcg/0.5 mL or 25mcg/0.25 mL dose 2 completed Lizeth Herrera null, [facility] 09/29/2023 09:57:53 COVID-19, mRNA, LNP-S, PF, 50 mcg/0.5 mL 3 completed Lizeth her, [facility] 09/29/2023 09:57:53 Influenza, MDCK, trivalent, PF 4 completed Lizzeth Jack MA null, [facility] 09/07/2024 08:52:06 COVID-19, mRNA, LNP-S, PF, mina-sucrose, 30 mcg/0.3 mL 4 completed KAYLI Hollingsworth, [facility] 09/07/2024 08:52:06 [facility]dap 9 [facility] 09:57:53 influenza, seasonal, intradermal, preservative free 3 completed Lizeth her [facility] [place] 09/29/2023 09:57:53 Influenza, split virus, quadrivalent, PF 3 completed Angelo Ring MD [address] [address], [place], [address], [facility] [place] 08/05/2023 13:57:35 Past Encounters Encounter ID Performer Location Encounter Start Date Encounter Closed Date Diagnosis/Indication Diagnosis SNOMED-CT Code Diagnosis ICD10 Code Diagnosis Note [id number] autoEComm erce [id number] [facility] [facility] [place] [address] 10/30/2012 00:00:00 [id number] autoEComm erce [id number] [facility] [facility] [place] [address] 12/17/2012 00:00:00 [id number] autoEComm erce [id number] [facility] [facility] [place] [address] 01/28/2013 00:00:00 [id number] autoEComm erce [id number] [facility] [facility] [place] [address] 05/21/2013 00:00:00 [id number] autoEComm erce [address] [facility] [facility] [place] [address] 02/24/2014 00:00:00 [id number] autoEComm erce [address] [facility] [facility] [place] [address] 03/03/2014 00:00:00 [id number] ADAM Hoang Main Office [address] [place] [address] 11/29/2014 14:07:45 11/29/2014 14:55:38 Adnexal tenderness [id number] Acute abdomen [id number] re bound tenderness and fever. most tenderness seems to be adnexal. To ER for either CT ab/pelvis or transvag u/s. she will take herself to ER. high risk condition with threat to life [id number] Angelo Ring MD Main Office [address] [address] 12/09/2014 08:01:30 12/09/2014 08:56:51 Diverticulitis of colon [id number] Responding well to therapy which patient seems to be tolerating well. Will complete course and implement diverticul osis dietary modificati ons. If recurs may need further evaluation /intervent ion. [id number] ADAM Hoang Main Office [address] [facility] [address] [place] [address] 02/15/2015 09:48:55 02/15/2015 10:33:32 Cough [id number] suspect bacterial infection given the new onset fever after 2 wks of sxs. pneumonia is possible but lung exam nl. sinusitis also possible since getting bloody rhinorrhea . will treat with coverage for both. she will call in 5 days if not improving and we will do a CXR [id number] Angleo Ring MD Main Office [address] [facility] [address] [place] [address] 03/17/2015 13:57:14 03/17/2015 15:19:51 Adult health examination [id number] Immunizati on status utd, flu advised in the Fall. Cervical cancer screening utd. Regular dental and ophtho care advised as well as seatbelt and sunscreen use. Distracted driving discussed. Advance directives in place. Body mass index 30+ - obesity 807958704 Pain of mu ltiple joints 27969955 Has history of Lyme s/p tx. Now episodic flares of joint pain in the context of other autoimmune disease. Will check labs and consult rheum to rule out inflammato ry vs autoimmune joint disease. Minh thyroiditis 03694133 Followed by endo. Will check labs. Mixed anxi ety and depressive disorder 436103071 Suspect this might be playing into some of her symptoms. Will reassess at f/u. [id number] Essence sosa MD Main Office [address] [facility] [address] [place] [address] 05/30/2015 14:03:59 05/30/2015 15:06:20 Abdominal pain 23822932 most likely diverticul itis by hx and [...] 7 months in such a young person. [id number] Essence sosa MD Main Office 3640 [facility] [address] [facility] [place] [address] 06/01/2015 11:25:30 06/01/2015 11:52:16 Diverticulitis of colon 622494492 much better after 48 hours of abx, did not do CT scan and not needed at this time, any worsening pt needs to return. [id number] Angelo Ring MD Main Office [address] [address] [place] [address] 06/22/2015 14:07:00 06/22/2015 15:04:05 Diverticulitis of colon 854191202 Given recurrence will ask surgery for opinion on whether resection is indicated. Mixed anxi ety and depressive disorder 082686844 Improved, without meds. Will monitor. Minh thyroiditis 40133401 Will assume med prescribin g. [id number] Angelo Ring MD Main Office [address] [address] [place] [address] 07/11/2015 12:42:00 07/11/2015 13:32:02 Diplopia 29710633 Exam unremarkab le. Will image to look for evidence of gliosis/MS vs other brainstem lesions vs atypical migraine, vs recurrent lyme. Needs ophtho eval for more thorough fundoscopi c examinatio n. Will start with labs and depending on whether symptoms persist and imaging results neuro referral would be next step. Floaters i n visual field 574652472 Headache 62336638 [id number] Cherie Hannah PA-C Main Office [address] [address] [place] [address] 10/20/2015 13:24:01 10/20/2015 14:01:53 Diverticulitis of colon 196670426 K57.32 3 rd episode of acute diverticul itis. Will try to manage outpatient ly. Do STAT CBC with diff. If high, will ask her to go to the ER. PT. needs clear liquid diet and will strt on Flagyl and Levaquin. If no improvemen t in 24 hrs or high or worse , recommende d to go to the ER immediatel y. [id number] Angelo Ring MD Main Office [address] [facility] [address] [place] [address] 12/07/2015 08:06:46 12/07/2015 08:52:55 Diverticulitis of colon 877065681 K57.32 Scheduled for surgery. Minh thyroiditis 21 538667 E06.3 Will assume med prescribin g and monitoring . Needs infl uenza immunization 406029712 Z23 Myasthenia gravis 128050 04 G70.00 Immunology referral generated. Body mass index 30+ - obesity 163984036 Z68.38 Will check fasting labs today. [id number] Angelo Ring MD Main Office [address] [place] [address] 01/02/2016 10:23:43 01/16/2016 11:46:47 [id number] Angelo Ring MD Main Office [address] [place] [address] 03/28/2016 08:05:39 03/28/2016 09:29:39 Adult health examination 623134764 Z00.00 Immunizati on status utd, flu advised in the Fall. Cervical cancer screening utd. Regular dental and ophtho care advised as well as seat belt and sunscreen use. Distracted driving discussed. Advance directives in place. Body mass index 30+ - obesity 284473044 Z68.36 Minh thyroiditis 21 193448 E06.3 Biochemica lly and clinically euthyroid. Continue current dose and follow labs. Hyperglycemia 95424374 R 73.9 Mixed anxi ety and depressive disorder 330387284 F41.8 Improved, without meds. Seeing therapist. will monitor. [id number] Cherie Hannah PA-C Main Office [address] [address] [place] [address] 01/14/2017 08:40:56 01/14/2017 09:24:29 Acute conjunctivitis 27024119 H10.31 [id number] Angelo Ring MD Main Office [address] [facility] [address] [place] [address] 04/02/2017 09:26:44 04/02/2017 10:34:49 Adult health examination 466053898 Z00.01 Immunizati on status utd, flu advised in the Fall. Cervical cancer screening utd. Regular dental and ophtho care advised as well as seat belt and sunscreen use. Distracted driving discussed. Advance directives in place. Myasthenia gravis 961065 04 G70.00 Well controlled and followed by neuro. Body mass index 30+ - obesity 130415082 Z68.36 Increased frequency of urination 061017709 R35.0 Info provided on IC as I suspect this is the issue. Pt will call for urology referral if symptoms worsen/kwame gonzaleze. [id number] Angelo Ring MD Main Office [address] [facility] [address] [place] [address] 04/03/2018 08:22:48 04/03/2018 09:21:03 Adult health examination 849678966 Z00.00 Immunizati on status utd, flu advised in the Fall. Cervical cancer screening utd. Regular dental and ophtho care advised as well as seat belt and sunscreen use. Distracted driving discussed. Advance directives in place. Myasthenia gravis 004889 04 G70.00 Well controlled and followed by neuro. Body mass index 30+ - obesity 810510328 Z68.36 Minh thyroiditis 21 814988 E06.3 Biochemica lly and clinically euthyroid. Continue current dose and follow labs. Vitamin D deficiency 347 40997 E55.9 WIll confirm adequate supplement ation. [id number] Angelo Ring MD Main Office [address] [facility] [address] [place] [address] 06/19/2018 14:32:25 06/19/2018 15:29:15 Sprain of jaw 83089725 S03.40XA Mouth guard, prn NSAID. Call dentist inb/worse. [id number] Angelo Ring MD Main Office [address] [address] [place] [address] 06/23/2018 08:44:23 06/23/2018 10:11:04 [id number] Angelo Ring MD Main Office [address] [facility] [address] [place] [address] 09/03/2018 14:32:34 09/03/2018 14:43:41 Needs influenza immunization 329272333 Z23 [id number] Angelo Ring MD Main Office [address] [facility] [address] [place] [address] 01/29/2019 10:50:49 01/29/2019 11:48:59 Acute pharyngitis 711432187 J02.9 Given symptom score and recent exposure will cover for strep despite negative rapid. Supportive tx advised as well. Will d/c abx if culture is negative. Call inb/worse or if new symptoms develop. Acute vaginitis 94916552 N76.0 Often an issue with abx for her. Rx provided in case. [id number] Angelo Ring MD Main Office [address] [address] [place] [address] 04/05/2019 14:03:43 04/05/2019 15:27:44 Adult health examination 452819724 Z00.00 Immunizati on status updated, flu advised in the Fall. Cervical cancer screening utd. Regular dental and ophtho care advised as well as seat belt and sunscreen use. Distracted driving discussed. Advance directives in place. Administra tion of viral vaccine 51642993 Z23 Screening for malignant neoplasm of breast 802919473 Z12.39 Myasthenia gravis 015867 04 G70.00 Well controlled and followed by neuro. Body mass index 30+ - obesity 090116538 Z68.37 Minh thyroiditis 21 245653 E06.3 Biochemica lly and clinically euthyroid. Continue current dose and follow labs. Vitamin D deficiency 347 56407 E55.9 WIll confirm adequate supplement ation. Recurrent major depression in partial remission 14013419 F33.41 Symptoms are worse/limi ting. Will see if buproprion is tolerated/ effective. Macrocytosis 355747814 D 75.89 Will screen for nutritiona l deficienci es. Hypercholesterolemia 136 36110 E78.00 Based on current CVD risk score will work on TLC and plan to monitor. Left flank pain 55265992 9 R10.9 Start eval with UA and consider imaging depending on symptom evolution and test results. Impaired f asting glycemia 600381195 R73.01 Low CHO, regular exercise and weight loss advised. Obesity 218236404 E66.9 [id number] Angelo Ring MD Main Office [address] [place] [address] [place] [address] 05/13/2019 14:41:57 05/13/2019 15:25:19 Recurrent major depressive episodes, in full remission 800003297 F33.42 Responding well to low dose buproprion . Back to exercising and using mindfullne ss skills. Will continue current dose for now. Call with any problems. Vitamin D deficiency 347 52862 E55.9 Will d/c supplement [id number] Angelo Ring MD Main Office [address] [place], [place] [address] [address] 09/14/2019 12:37:13 09/14/2019 13:28:14 Needs influenza immunization 001039348 Z23 Major depr ession single episode, in partial remission 61793687 F32.4 Responding well to low dose buproprion . Planning to resume exercise. Will try alternatin g 300/150mg tablets and see if tolerated/ effective. [id number] Angelo Ring MD Main Office [address] [place] [address] [place] [address] 11/05/2019 08:32:31 11/05/2019 09:43:46 Recurrent major depression in partial remission 90263425 F33.41 Overall doing well on reduced buproprion dose but not in a position to reduce further at this point. Will monitor. Will resume melatonin for sleep. [id number] Angelo Ring MD Main Office [address] [place], [place] [address] [address] 02/28/2020 09:22:21 02/28/2020 13:24:40 Recurrent major depression in partial remission 54964149 F33.41 Overall doing well on reduced buproprion dose but not in a position to reduce further at this point. Will monitor. Impaired f asting glycemia 524927016 R73.01 Low CHO, regular exercise and weight loss advised. Due for f/u labs. Hypercholesterolemia 136 99998 E78.00 Due for reassessme nt, will discuss mgmt based on CVD risk score. Vitamin D deficiency 347 68691 E55.9 Will reassess on lower supplement dose. [id number] Angelo Ring MD Main Office [address] [facility] [address] [place] [address] 06/28/2020 14:04:47 06/28/2020 15:12:18 Hypertensive disorder 02191398 I10 Likely diet and weight related, but thyroid issues need to be considered as well. Will screen for end organ damage and start dual medication therapy. Pt advised of common/ser ious potential side effects and to call with any problems after starting. Will go for her fasting labs today. Titrate dose at f/u as tolerated to goal BP <130/90. Minh thyroiditis 21 869365 E06.3 Biochemica lly and clinically euthyroid. Continue current dose and follow labs. [id number] Angelo Ring MD Main Office [address]40 [facility] [address] [place] [address] 07/06/2020 14:50:52 07/06/2020 15:58:04 Adult health examination 021298662 Z00.00 Immunizati on status updated, flu advised in the Fall. Cervical cancer screening utd. Regular dental and ophtho care advised as well as seat belt and sunscreen use. Distracted driving discussed. Advance directives in place. Essential hypertension 83641962 I10 Well controlled on low dose ACEI. Continue as is for now. Screening for malignant neoplasm of breast 880379511 Z12.39 Myasthenia gravis 045090 04 G70.00 Stable and followed by neuro. Obesity 555159552 E66.9 Body mass index 30+ - obesity 880307098 Z68.39 Minh thyroiditis 21 049079 E06.3 Biochemica lly and clinically euthyroid. Continue current dose and follow labs. Vitamin D deficiency 347 62073 E55.9 Continue current dose. Recurrent major depression in partial remission 12872321 F33.41 Improved. Continue current regimen. Hypercholesterolemia 136 71999 E78.01 Based on current CVD risk score will work on TLC and plan to monitor. Impaired f asting glycemia 697879356 R73.01 Low CHO, regular exercise and weight loss advised. [id number] Angelo Ring MD Main Office [address] [facility] [address] [place] [address] 09/05/2020 13:24:59 09/05/2020 13:59:04 Essential hypertension 37981597 I10 Well controlled on low dose ACEI. Continue as is for now. May decrease if BP goes down off of SNRI. Recurrent major depression in partial remission 14280539 F33.41 Will try slow wean and monitor symptoms. Call with any problems. Needs infl uenza immunization 263379621 Z23 [id number] Angelo Ring MD [place] [address] [place] [address] [place] [address] 10/13/2020 08:10:30 10/13/2020 13:15:17 Essential hypertension 07597826 I10 Fair control based on reported home numbers. Wants to work on Na restrictio n and weight loss. Will monitor. Recurrent major depression in partial remission 98163052 F33.41 Symptoms have increased since stopping buproprion but overall coping well and heading in the right direction. Will monitor with therapy and no medication for now. Call if any problems. [id number] Angelo Ring MD [facility] 3640 [facility] 207 [facility] [place], [place] [address] 02/23/2021 08:38:27 02/23/2021 09:43:57 Essential hypertension 31341413 I10 Fair control based on reported home numbers. Will titrate ACEI dose and monitor home BP. Advised to go for labs 2-3 weeks after dose increase. Healthy diet and exercise habits again discussed/ encouraged . Recurrent major depression in partial remission 76526938 F33.41 Symptoms remain since stopping buproprion but overall coping well and heading in the right direction. Will monitor with therapy and no medication for now. Call if any problems. Impaired f asting glycemia 457806451 R73.01 Low CHO, regular exercise and weight loss advised. Has been normal last 2 assessment s. Will remove diagnosis if normal this time around., [id number] Erasmo Sandoval MD [facility] 3640 [facility] [address] [place] [address] 03/08/2021 08:40:17 03/08/2021 11:56:11 Headache 08454368 R51.9 Multifacto rial: ( stress, kids school [...] already ordered by PCP. Minh thyroiditis 21 837116 E06.3 Myasthenia gravis 609211 04 G70.00 Essential hypertension 53751113 I10 Recent increase in lisinopril dosing which has improved her BP, still in normal range, do not suspect med is the cause of headache. continue to monitor BP. [id number] Angelo Ring MD Main Office [address] [address] 04/26/2021 12:40:23 04/26/2021 13:13:55 Contusion of right foot 1894862967 9309135 S90.31XA Most likely soft tissue injury is the cause of her symptoms, but given persistent point tenderness will image to rule out fracture. Refer to ortho if positive. [id number] Angelo Ring MD Main Office [address] [address] 07/12/2021 10:55:07 07/12/2021 12:03:32 Adult health examination 491662110 Z00.00 Immunizati on status updated, flu advised in the Fall. Will screen based on risk factors. Cervical cancer screening utd, pt to have mammo done this year. Regular dental and ophtho care advised as well as seat belt and sunscreen use. Distracted driving discussed. Advance directives in place. Essential hypertension 49639662 I10 Well controlled , continue current regimen. Screening for malignant neoplasm of breast 669772037 Z12.39 Screening for malignant neoplasm of cervix 284868305 Z12.4 Hepatitis C screening 41 9286514 Z11.59 Myasthenia gravis 305896 04 G70.00 Stable and followed by neuro. Obesity 423730992 E66.9 Minh thyroiditis 21 685590 E06.3 Biochemica lly and clinically euthyroid. Continue current dose and follow labs. Vitamin D deficiency 347 43967 E55.9 Will verify adequate dosing. Recurrent major depression in partial remission 94911775 F33.41 Improved. Continue current regimen. Hypercholesterolemia 136 41991 E78.01 WIll reassess and manage based on CVD risk score. Impaired f asting glycemia 488992767 R73.01 Low CHO, regular exercise and weight loss advised. WIll monitor. Bilateral knee pain 1187 784604 2042554 M25.561 M25.562 Likely OA but with comorbid autoimmune disease will screen for reactive arhtritis. Body mass index 40+ - severely obese 702805637 E66.01 Z68.41 Adjustment disorder with anxious mood 34698132 F43.22 Will monitor with SSRI trial. [id number] Angelo Ring MD [facility] [address]40 [facility] [address] [place] [address] 08/17/2021 08:33:56 08/21/2021 09:12:13 Recurrent major depression in partial remission 74485087 F33.41 Improved but still symptomati c. Still following with therapist. Will continue current dose for now. Herpes zoster 4071385 B0 2.9 Diagnosed at and responding to valacyclov ir without significan t pain symptoms. Will call with any problems. [id number] [facility] 3640 [facility] [address] [place] [address] 02/23/2022 08:23:04 02/25/2022 10:00:48 COVID-19 892146482 U07.1 Motrin or Tylenol OTC, not to [...] tmax 103 > go to nearest ED [id number] Angelo Ring MD Main Office [address]40 [facility] [address] [place] [address] 07/15/2022 10:59:17 07/15/2022 12:27:18 Adult health examination 943414843 Z00.00 Immunizati on status updated, flu advised in the Fall. Will screen based on risk factors. Cervical cancer screening utd, pt to have mammo done this year. Regular dental and ophtho care advised as well as seat belt and sunscreen use. Distracted driving discussed. Advance directives in place. Recurrent major depression in partial remission 04111935 F33.41 Improved but still symptomati c. Still following with therapist. Will continue current dose for now. Impaired f asting glycemia 255140660 R73.01 Low CHO, regular exercise and weight loss advised. Will monitor. Essential hypertension 52290189 I10 Well controlled , continue current regimen. Screening for malignant neoplasm of breast 426458925 Z12.39 Screening for malignant neoplasm of cervix 646722207 Z12.4 Body mass index 40+ - severely obese 862810200 E66.01 Z68.42 Hypercholesterolemia 136 81449 E78.01 Will reassess and manage based on CVD risk score. Vitamin D deficiency 347 75896 E55.9 Level has been perfect on current dose. Contiue as is. Minh thyroiditis 21 909096 E06.3 Biochemica lly and clinically euthyroid. Continue current dose and follow labs. Additional labs ordered for the prescriber of her throid supplement s. Myasthenia gravis 989824 04 G70.00 Stable and followed by neuro. Tinea pedis 1383555 B35. 3 [id number] [facility] MD [facility] [address] [place] [address] 08/16/2022 08:17:39 08/16/2022 09:29:36 Recurrent major depression in partial remission 01095386 F33.41 Improved but still symptomati c. Will titrate buproprion dose and reassess in 3-4 weeks. Persistent cough 9034889 02 R05.3 Will rule out pneumonia. If CXR positive or if symptoms worsen/sec ond sickening occurs would start her on a course of doxy. May need to consider ACEI induced cough but this sounds more inflammato ry. Generalize d anxiety disorder 87387557 F41.1 Buproprion seems to help. Not using any anxiolytic s. Wonder if there is a component of OCD. [id number] Angelo Ring MD Main Office [address] [address] [place] [address] 10/31/2022 12:35:45 10/31/2022 13:21:07 Generalized anxiety disorder 41972043 F41.1 Buproprion with low dose escitalopr am seems to be helping. Not using any anxiolytic s. Wonder if there is a component of OCD. Consider weaning off of SSRI if remains well controlled . Fever 413277837 R50.9 With exposure and fever here will screen for likely possible viral proccesees in community and more specifical ly at her home. Essential hypertension 64217087 I10 Not well controlled today and not sure if it is related to febrile illness or buporoprio n. Will reassess after acute issues resolve. [id number] Erasmo Sandoval MD Main Office [address] [address] [place] [address] 11/22/2022 13:58:23 11/22/2022 14:45:50 Essential hypertension 56375226 I10 will check blood work and urine, and wean off wellbutrin . ut back on sodium, hydration, rest, take lisinopril as directed. F/U as scheduled in Dec.EKG NSR, no acute abnormalit y Anxiety 38232408 F41.9 Cut wellbutrin back to 150mg daily x 7 days. then 150mg every other day for 7 days, if needed may extend to take 150mg every 3rd day then stop med. Prediabetes 939270243 R7 3.03 Hyperlipidemia 91233415 E78.5 Pain in right heel 87985 06858 647922 M79.671 recommend keeping heels clean and dry, use mometasone at bedtime x 7 days then start flexitol heel balm daily. Candidiasis of vagina 72 977953 B37.31 will rx diflucan as she is on abx and gets yeast frequently . [id number] Erasmo Sandoval MD [facility] [address] [address] [place] [address] 12/07/2022 16:43:59 12/09/2022 10:40:33 Eruption 649628885 R21 Possible drug eruption to keflex. [id number] Angelo Ring MD Main Office [address] [address] [place] [address] 12/24/2022 14:31:04 12/24/2022 15:30:08 Essential hypertension 88779337 I10 Well controlled on ACEI, tolerating therapy continue current dose. Liver enzy mes level above reference range 498180396 R74.01 Will reassess and evaluate further if persistent . [id number] Angelo Ring MD Main Office [address] [address] [place] [address] 01/16/2023 09:03:04 01/16/2023 10:05:21 Generalized anxiety disorder 48473590 F41.1 Obesity 849781071 E66.9 Essential hypertension 95074990 I10 Well controlled on ACEI, tolerating therapy continue current dose. Needs to be monitored on stimulant therapy. Attention deficit hyperactivity disorder, combined type 16888561 F90.2 Will trial a course of stimulant therapy to help augment SSRI and monitor BP/symptom s. Titrate as tolerated to goal symptoms control. If effective transition to ER formulatio n. Recurrent major depression in partial remission 53227997 F33.41 Worse, reluctant to titrate SSRI further given her weight issues. [id number] Angelo Ring MD [facility] [address] [address] [place] [address] 02/07/2023 13:10:43 02/07/2023 13:56:06 Generalized anxiety disorder 31407885 F41.1 Not well controlled but secondary to stressors which are hopefully going to be mitigate soon. Recurrent major depression in partial remission 21738131 F33.41 Worse, reluctant to titrate SSRI further given her weight issues. Attention deficit hyperactivity disorder, predominantly inattentive type 86402807 F90.0 See if atomoxetin e helps and is better tolerated. Essential hypertension 37239437 I10 Well controlled on ACEI, tolerating therapy continue current dose. Snoring 61107717 R06.83 Based on increasing weight and other symptoms sleep testing to r/o CHRIS is appropriat e. [id number] Angelo Ring MD Main Office [address] [address] [place] [address] 04/01/2023 11:19:49 04/01/2023 12:38:49 Generalized anxiety disorder 73128218 F41.1 Not well controlled but secondary to stressors which are hopefully going to be mitigate soon. Snoring 59055812 R06.83 Referral being coordinate d. Impaired f asting glycemia 648124874 R73.01 Low CHO, regular exercise and weight loss advised. Will monitor. Recurrent major depression in partial remission 46695330 F33.41 Worse, reluctant to titrate SSRI further given her weight issues. Ondina 4 weeks since last dose increase. Will monitor. Essential hypertension 54018727 I10 Well controlled on ACEI, tolerating therapy continue current dose. Minh thyroiditis 21 745384 E06.3 Biochemica lly and clinically euthyroid. Continue current dose and follow labs. Additional labs ordered for the prescriber of her throid supplement s. [id number] Angelo Ring MD [facility] [address] [address] 05/02/2023 08:32:28 05/06/2023 08:24:01 Generalized anxiety disorder 16381469 F41.1 Improved since escitalopr am dose titration. Will continue as is for now. Recurrent major depression in partial remission 66899473 F33.41 Fair control/co ping better on escitalopr am. Will continue current dose. Obstructiv e sleep apnea of adult 0834067657 103 G47.33 Positive sleep study, no follow up available with sleep medicine until Jul. Pt is ok waiting. I would defer to them as her treatment plan will likely be zoin anum Contact dermatitis 59508 004 L25.9 OTC cortisone helps somewhat. Will try higher potency for short term only. Body mass index 40+ - severely obese 681176137 E66.01 Z68.41 Member is 17 years of [...] or any other GLP-1 receptor agent. Prediabetes 056564954 R7 3.03 [id number] Angelo Ring MD [facility] [address] [facility] [address] [place] [address] 06/13/2023 08:26:00 06/13/2023 10:16:05 Generalized anxiety disorder 55617107 F41.1 Improved on escitalopr am dose titration, but virtually resolved with CHRIS therapy. Will try reducing lexapro dose. Morbid obesity 793832560 E66.01 Obstructiv e sleep apnea of adult 3045777716 103 G47.33 On CPAP, tolerating and complying well with it with dramatic impact on systemic symptoms. Prediabetes 191019279 R7 3.03 Will titrate GLP1 agonist dose and go up to 1mg in 4 weeks if continuing to do well. Recurrent major depression in partial remission 47564986 F33.41 Doing much better from a mod perspectiv e on CPAP and not happy with thi impact on libido. Wants to try reducing dose to 5mg daily. Will taper slowly [id number] Angelo Ring MD Main Office [address] [place] [address] 08/05/2023 12:49:12 08/05/2023 14:02:15 Adult health examination 602273117 Z00.00 Immunizati on status updated, flu advised in the Fall. Will screen based on risk factors. Cervical cancer screening utd, pt to have mammo done this year. Regular dental and ophtho care advised as well as seat belt and sunscreen use. Distracted driving discussed. Advance directives in place. Needs infl uenza immunization 578360198 Z23 Body mass index 40+ - severely obese 175848015 E66.01 Z68.41 Member is 17 years of [...] agent. Recurrent major depression in partial remission 06093505 F33.41 Under much better control since starting CPAP Accidental ly self titrated her dose down to 5mg and doing well. Will stay there for now. Impaired f asting glycemia 142313080 R73.01 Low CHO, regular exercise and weight loss advised. Will monitor. Essential hypertension 42357491 I10 Well controlled , continue current regimen. Screening for malignant neoplasm of breast 782079828 Z12.39 Screening for malignant neoplasm of cervix 123411609 Z12.4 Hypercholesterolemia 136 95504 E78.01 Will reassess and manage based on CVD risk score. Vitamin D deficiency 347 64955 E55.9 Level has been perfect on current dose. Continue as is. Minh thyroiditis 21 289659 E06.3 Biochemica lly and clinically euthyroid. Continue current dose and follow labs. Additional labs ordered for the prescriber of her throid supplement s. Myasthenia gravis 386165 04 G70.00 Stable and followed by neuro. Abnormal g ait due to impairment of balance 994103314 R26.89 Prediabetes 413307286 R7 3.03 Will titrate GLP1 agonist dose and go up to 2mg in 4 weeks if continuing to do well. Obstructiv e sleep apnea of adult 8320710574 103 G47.33 On CPAP, tolerating and complying well with it with dramatic impact on systemic symptoms. [id number] Byron Rodrigues MD [facility] [address] [facility] [address] [place] [address], [place] [address] 09/22/2023 14:22:00 09/22/2023 15:45:04 Adverse reaction to drug 67868889 T50.905A Adverse reaction to 2 mg of [...] PCP as scheduled in November. Morbid obesity 232361248 E66.01 Clear benefit from use of GLP-1 despite no weight loss so far on Ozempic. See above. Prediabetes 907620749 R7 3.03 Continue strict low calorie low carb diet and small dose of GLP-1 Ozempic. Discuss with PCP retrying 1 mg in the future if 0.5 mg dose was tolerated well. Avoid using at 2 mg dose. Nausea 680481558 R11.0 [id number] DENISSE NIETO Main Office 3640 [facility] [address] [place] [address] 10/27/2023 10:39:25 10/27/2023 11:05:58 Cough 78840794 R05.9 -reports of recovering from viral infection- [...] wheezing was appreciate d on the PE [id number] Angelo Ring MD Main Office [address] [facility] [address] [place] [address] 12/04/2023 14:27:42 12/04/2023 16:00:04 Generalized anxiety disorder 08909920 F41.1 Improved on escitalopr am and CHRIS therapy. Morbid obesity 979586740 E66.01 Hold off on revisitng GLP1 agonsit therapy until chest pain is addressed. Recurrent major depression in partial remission 95361849 F33.41 Under much better control since starting CPAP Accidental ly self titrated her dose down to 5mg and doing well. Will stay there for now. Right side d chest pain 930429211 R07.89 Suspect soft tissue injury/str ain secondary to prolonged severe cough. Treatment options significan tly limited secondary to pt's myesthenia gravis (no NSAIDS/benitez roid). See if heat, and muscle relaxant helps as well as try topical lidocaine therapy if insurance will allow. Rule of rib fracture/P TX with focused imaging. Female str ess incontinence 97080344 N39.3 With her neuromuscu lar disorder may need further eval if persistent /worse. Will rule out UTI. Myasthenia gravis 521566 04 G70.00 Stable and followed by neuro, but condition and medical therapy impact many treatment options. Body mass index 40+ - severely obese 204982083 Z68.43 [id number] Angelo Ring MD Main Office [address] [facility] [address] [place] [address] 04/06/2024 12:43:35 04/06/2024 13:25:15 Generalized anxiety disorder 52699636 F41.1 Stable on current escitalopr am dose and CHRIS therapy. Prediabetes 078738619 R7 3.03 Will titrate GLP1 agonist dose and go up to 1mg dose Myasthenia gravis 571675 04 G70.00 Needs therapy assistance for global strength/b alance as well as help maintainin g ADLs. Requesting handicap placard which is reasonable . [id number] Angelo Ring MD Main Office [address] [facility] [address] [place] [address] 07/08/2024 12:32:31 07/08/2024 13:26:04 Myasthenia gravis 04605210 G70.00 On Cellcept, and labs being monitored closely by neuro. Minh thyroiditis 21 565934 E06.3 Biochemica lly and clinically euthyroid. Continue current dose and follow labs. Overdue for labs and does not want to follow with integrativ e medicine who prescribed /monitored labs in the past. Obstructiv e sleep apnea of adult 3509005418 103 G47.33 On CPAP, tolerating and complying well with it with dramatic impact on systemic symptoms. Morbid obesity 819728030 E66.01 Certainly a candidate for GLP 1 agonist therapy. I hope insurance realizes this. Body mass index 40+ - severely obese 349466292 E66.01 Z68.41 Essential hypertension 03195982 I10 Well controlled , continue current regimen. Prediabetes 261925185 R7 3.03 Insurance rejected Ozempic, due for labs. [id number] Angelo Ring MD Main Office [address] [facility] [address] [place] [address] 09/07/2024 08:48:57 09/07/2024 09:51:38 Adult health examination 143674001 Z00.00 Immunizati on status utd. Will screen based on risk factors. Cervical cancer screening utd, pt to have mammo done this year. Regular dental and ophtho care advised as well as seat belt and sunscreen use. Distracted driving discussed. Advance directives in place. Screening for malignant neoplasm of cervix 060119253 Z12.4 Screening for malignant neoplasm of breast 292167860 Z12.39 Body mass index 40+ - severely obese 513094061 E66.01 Z68.43 Ins ultimately approved GLP1 therapy and she is responding . WIll titrate dose as tolerated. Needs infl uenza immunization 919681945 Z23 Recurrent major depression in partial remission 49393685 F33.41 Under much better control since starting CPAP, well controlled on current SSRI dose. Impaired f asting glycemia 015028496 R73.01 Low CHO, regular exercise and weight loss advised. Will monitor. Essential hypertension 87947914 I10 Well controlled , continue current regimen. Hypercholesterolemia 136 38397 E78.01 Will reassess and manage based on CVD risk score. Vitamin D deficiency 347 59823 E55.9 Level has been perfect on current dose. Continue as is. Minh thyroiditis 21 990006 E06.3 Biochemica lly and clinically euthyroid. Continue current dose and follow labs. Additional labs ordered for the prescriber of her throid supplement s. Myasthenia gravis 551318 04 G70.00 Stable and followed by neuro. Prediabetes 810758492 R7 3.03 Will titrate GLP1 agonist dose and go up to 2mg in 4 weeks if continuing to do well. If A1c remains >6.4 will enter diabetes diagnosis. Obstructiv e sleep apnea of adult 3274610342 103 G47.33 On CPAP, tolerating and complying well with it with dramatic impact on systemic symptoms. Screening for malignant neoplasm of colon 490296136 Z12.11 [id number] Angelo Ring MD Main Office [address] [facility] [address] [facility] [place], [place] [address] 12/07/2024 10:28:22 12/07/2024 11:50:35 Prediabetes 408025906 R73.03 Will titrate GLP1 agonist dose and go up to 15mg in 4 weeks if continuing to do well. Generalize d anxiety disorder 83977670 F41.1 Stable on current escitalopr am dose and CHRIS therapy. Essential hypertension 89381212 I10 Well controlled , continue current regimen. Body mass index 40+ - severely obese 145793875 E66.01 Z68.43 Ins ultimately approved GLP1 therapy not responding as would have expected. Will titrate dose as tolerated. Pain in bi lateral legs 1852190793 2929288 M79.604 M79.605 ? neurogenic vs vascular. will start with vascular eval and go further from there depending on outcome. Recurrent major depression in partial remission 91529139 F33.41 Under much better control despite increased personal stressors. Well controlled on current SSRI dose. [id number] Erasmo Sandoval MD Main Office [address] [facility] [address] [place] [address] 02/16/2025 09:45:44 02/16/2025 10:44:05 Acute pharyngitis 141213991 J02.9 negative strep test. Moderate dehydration 112 2097337 105 E86.0 tachycardi a, has had N/V/D. encouraged hydration with electrolyt es, water. zofran as eeded for nausea Essential hypertension 01355250 I10 BP stable Myasthenia gravis 798194 04 G70.00 Food-borne gastroenteritis 744717974 A05.9 suspect food related, neg covid/ flu and strep. sx overall imrpoving, encouraged zofran as needed, hydration, bland diet and advance as tolerated, if not better next week f/u as scheduled. [id number] Angelo Ring MD Main Office [address] [facility] [address] [place] [address] 02/22/2025 14:43:13 02/22/2025 15:31:58 Morbid obesity 298695857 E66.01 On GLP1 and tolerating well, but not really responding . Will try to increase dose further. Generalize d anxiety disorder 42213718 F41.1 Stable on current escitalopr am dose and CHRIS therapy. Essential hypertension 37555981 I10 Well controlled , continue current regimen. Recurrent major depression in partial remission 82269814 F33.41 Under much better control despite increased personal stressors. Well controlled on current SSRI dose. Body mass index 40+ - severely obese 457975976 E66.01 Z68.43 Ins ultimately approved GLP1 therapy not responding as would have expected. Will titrate dose as tolerated. Obstructiv e sleep apnea of adult 7571431828 103 G47.33 On CPAP, tolerating and complying well with it with dramatic impact on systemic symptoms. Venous ins ufficiency of leg 732660220 I87.2 Has ablations scheduled next week [id number] Angelo Ring MD Main Office [address] [facility] [place] [address] 04/07/2025 14:35:27 04/07/2025 15:39:46 Morbid obesity 949419145 E66.01 On GLP1 and tolerating well, but not a max dose. Insurance is not covering any further. Other weight loss medication s are not ideal options based on her comorbidit ies. Body mass index 40+ - severely obese 212115377 E66.01 Z68.43 Insurance denying GLP 1 therapy because of lack of effect. Will try Obstructiv e sleep apnea of adult 0242286669 103 G47.33 On CPAP, tolerating and complying well with it. Prediabetes 901983627 R7 3.03 Will monitor off of GLP1 agonist Pain of knee region 1003 272626 M25.561 G89.29 Possibly OA vs soft tissue vs vascular. If xray normal will discuss physiatry referral. Obesity 016656754 E66.9 BMI > 30 Axillary h idradenitis suppurativa 535155472 L73.2 Symptoms are suspicious for this diagnosis. Treatment options limited by allergies and comorbidit ies. Having thymus MRI, which should rule out chest pathology and recent mammogram was negative. Consider further eval if persistent /worse. Health Concerns Section Related Observation LastModified by Organization Detai ls LastModified Time None Recorded Concern Status LastModified by Organization Details LastModified Time None Recorded Advance Directives Directive Y: HCP -Jacklyn, Margarito a/Mauro Payers Insurance Date Sequence Insurance Name Policy Number Policy Quick Covered Member ID Quick Member ID Guarantor Name 07/07/2024 1 [facility] [id number] Frannie Silke [id number] Joanna Elise 07/11/2021 1 [facility] ([facility] [id number] Joanna Elise [id number] Joanna Elise 05/25/2025 1 [facility] ([facility] [id number] Joanna Elise [id number] Joanna Elise Notes Date Note Type Note Provider Name and Address Organization Details Recorded Time 09/07/20 24 text/htm l Generic HPI TemplateReported bypatient.Notes:Here for physical, Feels well on tirzapatide for 5 weeks. . Seeing dentist and ophtho regularly. KAYLI Thomas, [facility] 09/07/2024 13:37:21 12/07/19 25 text/htm l Hypertension [...] struggling to lose weight. Angelo Ring MD [address] [address], [place], [address], [facility] 12/07/2024 13:11:06 02/17/20 25 text/htm l Throat [...] was the only one who ate seafood. [place]ine [place] [id number] [address], [address], [facility] 02/16/2025 12:20:18 02/23/20 25 text/htm l Anxiety/DepressionReported [...] loss effect has plateaued Angelo Ring MD 3640 [facility] [address], [place], [address], [facility] 02/22/2025 16:49:43 04/07/20 25 text/htm l Anxiety/DepressionReported bypatient.Quality:symptoms improved Severity:able [...] directed; no side effects from medicationMusculoskeletal PainReported bypatient.Location:right knee Quality:aching Severity:worsening;interferen ce with work Duration:present for 6-12 months Timing:intermittent Context:overuseNotes:Having intermittent leg pain and muscle fatigue in the afternoon as well as right knee pain. Has myasthenia Gravis, on cellcept, does not exercise regularly, and diagnosed with venous insufficiency. Knee joint imaging unremarkable in 2020.ObesityReported bypatient.Diagnosis Summary:diagnosis: impaired fasting glucose Context:no oral [...] tirzepatide well, but weight loss effect has plateaued, and as a result her insurance.Skin LesionReported bypatient.Location:arms (b/l axilla) Quality:painful; tender; sore Severity:moderate Duration:started 2 year(s) ago Context:no known trigger Associated Symptoms:no fever Has been on GLP1 agonist for over 1 year. Initially Semaglutide but switched to tirzepatide last fall. Insurance is refusing to cover these medications for morbid obesity. Angelo Ring MD [address] [address], [place], [address], [facility] 04/12/2025 16:26:53 OBGyn Episode No OBEpisode recorded.
[2025-05-25 15:59] LABS: MANUAL DIFF FLAG NO
[2025-05-25 17:10] LABS: Hematocrit 41.7 % (37.0-47.0); Hemoglobin 13.8 g/dl (12.0-16.0); Imm Gran Abs Auto 0.05 X10*3/uL (0.00-0.03); Imm Gran Pct Auto 0.6 % (0.0-0.4); Lymphocytes Absolute Auto 2.6 X10*3/uL (1.2-4.9); Mean Corpuscular HGB Conc 33.1 g/dl (31.0-35.0); Mean Corpuscular Hemoglobin 30.9 pg (27.0-33.0); Mean Corpuscular Volume 93.3 fL (80.0-98.0); NRBC Abs Auto 0.000 X10*3/uL (0.0-0.012); NRBC Pct Auto 0.0 /100WBC (0.0-0.2); Platelet Count 278 X10*3/uL (160-400); Red Blood Count 4.47 X10*6/uL (4.20-5.50); White Blood Count 9.0 X10*3/uL (4.8-10.8)
[2025-05-25 17:39] LABS: Alanine Aminotransferase 49 U/L (0-31); Albumin Level 4.8 g/dL (3.5-5.0); Alkaline Phosphatase 64 U/L (39-117); Anion Gap 13 (12-20); Aspartate Amino Transferase 95 U/L (5-31); Blood Urea Nitrogen 12 mg/dL (9-16); Calcium 9.9 mg/dL (8.4-10.2); Carbon Dioxide 27 mmol/L (22-29); Chloride 103 mmol/L (96-108); Estimated Glomerular Filt Rate > 60; Potassium 4.3 mmol/L (3.3-5.1); Sodium 139 mmol/L (135-145); Total Protein 7.5 g/dL (6.5-8.0)
== END 2025-05-25 15:36 | disposition home or self-care (01) ==
LOC: HO.LAB 15:35
PROVIDERS: PCP Pediatrics; Visit Provider Nurse Practitioner Family
DX: G70.00 Myasthenia gravis without (acute) exacerbation (principal)
CPT/HCPCS: 36415; 80053; 85025

== ENCOUNTER 2025-06-27 09:41 | Outpatient (REF) | payer OTHER, SELFPAY ==
[2025-06-27 10:06] LABS: MANUAL DIFF FLAG NO
--- OUTSIDE RECORDS SUMMARY | 2025-06-27 10:13 | XMS_ITS | Encounter Summary ---
Author Organization [facility] Address [address] [facility] [address] [place] [address] Phone Care Team Providers Care Singing Teacher Name Role Phone Angelo Dey MD Primary Care Provider Encounter Details Date Type Department Care Team (Late st Contact Info) Description 06/21/2025 Procedure Pass [facility] Admitting Dept Virtual Department [address] [place] [address] Social History Tobacco Use Types Packs/Day Years Used Date Smoking Tobacco: Never Smokeless Tobacco: Never Alcohol Use Standard Drinks/Week Comments Not Currently 0 (1 standard drink = 0.6 oz pure alcohol) none since May 17; typical 1-2 per day Education Answer Date Recorded Are you interested in more education? Not on mary e 2025 Are you concerned about learning? Not on file 2025 No 2025 No 2025 Digital Access Answer Date Recorded No 2025 No 2025 Reliable internet access at home? Not on file 2025 Device with a working camera? Not on file Intimate Partner Violence Answer Date R ecorded Are you denied basic needs s uch as food, clothing, or medical care? No 06/21/2025 In the past 12 months have y ou been in a relationship with a person who hurts, threatens, or tries to control you? No 06/21/2025 Are you denied basic needs s uch as food, clothing, or medical care? No 06/21/2025 In the past 12 months have y ou been in a relationship with a person who hurts, threatens, or tries to control you? No 06/21/2025 Comments Unknown Sex and Gender Information Value Date Recorded Sex Assigned at Not on file Legal Sex Female 10:19 AM EDT Gender Identity Not on file Sexual Orientation Not on file documented as of this encounter Functional Status * Calculated C-SSRS Risk Score (Lifetime/Recent) Answer Date of Assessment Author No Risk Indicated 06/21/2025 7:14 AM EDT Francy Perera RN * [place] Suicide Severity Rating Scale (Screener/Recent Self-Report) Question Answer Date of Assessment Author 1. Wish to be (Past 1 Month) No 025 7:14 AM EDT Francy Perera RN 2. Non-Specific Active Suici angela Thoughts (Past 1 Month) No 06/21/2025 7:14 AM EDT Francy Perera RN 6. Suicidal Behavior (Lifetime) No 7:14 AM EDT Francy Perera RN documented as of this encounter Plan of Treatment Not on file documented as of this encounter Visit Diagnoses Not on filedocumented in this encounter Care Teams Singing Teacher Relationship Specialty Start Date End Date Angelo Dey MD [address] [place] [address] PCP - General Internal Medicine 06/21/25 documented as of this encounter Additional Source Comments The information contained in this document represents components of the legal health record. It is not the complete legal health record.[facility]
[2025-06-27 10:20] LABS: Hematocrit 36.5 % (37.0-47.0); Hemoglobin 11.6 g/dl (12.0-16.0); Imm Gran Abs Auto 0.03 X10*3/uL (0.00-0.03); Imm Gran Pct Auto 0.5 % (0.0-0.4); Lymphocytes Absolute Auto 1.7 X10*3/uL (1.2-4.9); Mean Corpuscular HGB Conc 31.8 g/dl (31.0-35.0); Mean Corpuscular Hemoglobin 30.4 pg (27.0-33.0); Mean Corpuscular Volume 95.8 fL (80.0-98.0); NRBC Abs Auto 0.000 X10*3/uL (0.0-0.012); NRBC Pct Auto 0.0 /100WBC (0.0-0.2); Platelet Count 252 X10*3/uL (160-400); Red Blood Count 3.81 X10*6/uL (4.20-5.50); White Blood Count 6.6 X10*3/uL (4.8-10.8)
[2025-06-27 11:02] LABS: Alanine Aminotransferase 32 U/L (0-31); Albumin Level 4.7 g/dL (3.5-5.0); Alkaline Phosphatase 62 U/L (39-117); Anion Gap 11 (12-20); Aspartate Amino Transferase 25 U/L (5-31); Blood Urea Nitrogen 10 mg/dL (9-16); Calcium 9.5 mg/dL (8.4-10.2); Carbon Dioxide 29 mmol/L (22-29); Chloride 106 mmol/L (96-108); Estimated Glomerular Filt Rate > 60; Potassium 4.3 mmol/L (3.3-5.1); Sodium 142 mmol/L (135-145); Total Protein 7.2 g/dL (6.5-8.0)
== END 2025-06-27 09:42 | disposition home or self-care (01) ==
LOC: HO.LAB 09:41
PROVIDERS: PCP Pediatrics; Visit Provider Nurse Practitioner Family
DX: G70.00 Myasthenia gravis without (acute) exacerbation (principal)
CPT/HCPCS: 80053; 85025; 86255

== ENCOUNTER 2025-06-29 07:26 | Outpatient (AMB) | payer OTHER, SELFPAY ==
[2025-06-29 07:37] VITALS: BP 122/76; PULSE 99; O2SAT 95; BMI 52.4
--- NOTE | 2025-06-29 07:37 | A.OFFVIS_ITS ---
Vital Signs 06/29/25 07:37 Height 5 ft Weight 268 lb 8 oz BMI 52.4 BP 122/76 Blood Pressure Location Lt brachial Position Sitting Pulse 99 Pulse Source Pulse Oximeter Pulse Oximetry (%) 95 Oxygen Delivery Method Room Air Intake Visit Reasons: 3m Follow Up OK per [facility] Intake Note: Patient presents follow up myasthenia gravis. OT/CT in chart. Has few questions Visitor Information Assistant Required: No Accompanied by: Self / Same As Patient Allergies hydromorphone (From Dilaudid) Allergy (Severe, Verified 06/29/25 07:39) Hives sulfamethoxazole (From Bactrim) Allergy (Severe, Verified 06/29/25 07:39) Rash trimethoprim (From Bactrim) Allergy (Severe, Verified 06/29/25 07:39) Rash clindamycin Allergy (Intermediate, Verified 06/29/25 07:39) Rash acetaminophen (From Percocet) Allergy (Mild, Verified 06/29/25 07:39) axitation erythromycin base Allergy (Mild, Verified 06/29/25 07:39) mg flare oxycodone (From Percocet) Allergy (Mild, Verified 06/29/25 07:39) axitation Medication List - Last Reconciled 06/29/25 by ELINOR Ramon cholecalciferol (vitamin D3) 50 mcg PO DAILY escitalopram oxalate (Lexapro) 10 mg PO DAILY ketoconazole 2% appl topical DAILY levothyroxine 75 mcg PO DAILY liothyronine (Cytomel) 5 mcg PO BID lisinopril 20 mg PO DAILY mometasone 0.1% appl topical DAILY multivitamin 1 tab PO DAILY mycophenolate mofetil (CellCept) 500 mg PO BID 30 days omega 1-jej-tpc-fish oil 1,200 (144-216) mg (Fish Oil) caps PO [probiotic PO] pyridostigmine bromide (Mestinon) 30 mg orally 6 times a day, may take extra 1-2 doses per day prn diplopia; 90 days pyridostigmine bromide ER (Mestinon Timespan) 180 mg PO BID 30 days HPI Comments Details: 45-yr-old female presents for f/u for myasthenia gravis. Interval history is notable for, early May labs, order by kinesiotherapist, were notable for elevated CK total at 705 and mildly positive LULU 1:80 (has history of previous mildly positive LULU. At the same time, routine CMP showed elevated AST/ENT 95/49. Patient states there were no significant changes prior to these labs, other than: * She had stopped drinking alcohol completely around this time-at that point she had been taking 1-2 drinks in the evening-though not all nights. * She also had abruptly stopped Zepbound therapy due to insurance issue shortly before these labs were drawn. Follow-up 06/28/2025 CMP, showed normalization of the AST/ALT . She is due to have follow-up CK level checked today-again ordered by her kinesiotherapist. States she has a h/o borderline HLD. She has GI f/u in Oct. 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 Thus, she is scheduled to see thoracic surgery on 07/11 at [facility] to further address. Her MG s/s have been worse d/t to the increased heat and humidity this summer. She notes that if she is exposed to heat and humidity for more than 5 minutes, she will have her typical MG s/s- facial droop, diplopia, and weakness. The Mestinon extended release is much more effective than the mestinon IR version- specifically notes that the morning diplopia and swallowing difficulties are better. though still using mestinon IR version prn. She notes recently going to a an indoor concert that did She is working w/ kinesiotherapist, Dr Carroll, for knee pain, and generalized joint and muscle pain. She is working with OT, which she feels has been helpful for learning eye exercises and energy conservation techniques. She has started PT, for her knee, mobility, joint pain. She is established care w/ [facility]. She is also seeing Dr Obed Maynard at the [facility]. 03/29/25, Previous HPI: Pt reports she was doing PT, who raised the possibility of lipedema (as she has areas of painful firm lumps in legs and arms), and so she was referred to vascular. She was dx'd w/ BLE venous insufficiency, and has undergone BLE vein procedures (the last was 3 weeks ago)- which has started to help BLE heaviness some, but not the weakness yet. Her Ozempic was switched to Zepbound, however she has not noticed significant weight loss despite 1200 calorie restriction and walking to the best of her ability. She would like to review which mg antibody she has previously been tested for- which include anti-ACHR and Anti-MuSK antibodies- both of which were negative. Her last chest CT was over 10 years ago. She is currently taking: Mestinon ER only 1 tab qhs- due to a recent product sales engineer back order. Mestinon IR 60mg 5 times a day. Mycophenolate 500 mg b.i.d.- started after April of 2024. Tolerating Mestinon and mycophenolate well. 03/25/2025 CBC and CMP within normal limits, with the exception of mildly elevated ALT at 44. Patient reports even with the using her CPAP, her fitbit shows noctural SpO2 is low 80s when she does not take a bedtime dose of Mestinon ER. However, when she does take a bedtime dose of Mestinon ER, her average nocturnal SpO2 is in the mid 90s. Sleep Medicine Services manages her CHRIS and CPAP- she has never had an in-lab sleep study or PAP titration study. Denies daytime SOB, but notes that once she feels the onset of muscle fatigue, she rests and removes herself from the situation if it triggering- ie hot/humid. She reports less diplopia and gagging in the mornings- with taking the Mestinon ER at bedtime She continues to feel weakness, exacerbated by heat humidity, physical activity. Using the cane and walker, makes her arms more prone to becoming weak as well. Her mobility continues to be limited due to heaviness, weakness, pain- continues to rely on a cane and a walker. She is still trying to mange her triggers- she often tries to minimize these symptoms by just not going anywhere. Continues to try avoid heat/humidity, avoids night driving as diplopia is worse at night (has avoided this since dx). Resting in an space w/ AC and taking 1/2 tab Mesitinon helps after 15-20 minutes- but this can prevent her from driving or engaging in activities while waiting. [facility] Medical History COVID-19 virus infection Depression Hypothyroidism Surgical History Hx of cholecystectomy Family History Mother Diabetes HTN (hypertension) Hyperlipidemia Glaucoma Father Diabetes HTN (hypertension) Hyperlipidemia Skin cancer Primary vitiligo Hx of Minh thyroiditis Social History Alcohol intake: current Alcohol intake frequency: a few times a week Patient Tobacco Use Status: Never used Tobacco Physical Exam Vital Signs: Last Vital Signs Pulse 99 06/29/25 07:37 BP 122/76 06/29/25 07:37 Pulse Ox 95 06/29/25 07:37 Oxygen Delivery Method Room Air 06/29/25 07:37 BMI result Body Mass Index 52.4 Const General: cooperative and no acute distress Orientation/consciousness: patient oriented x3 HEENT Head: Yes normocephalic Resp Effort & Inspection: normal respiratory effort and able to speak in complete sentences Neuro Other: Stand slowly, steady gait with cane General: patient oriented x3 and CN's II-XI intact bilaterally Cognition (Neuro): normal cognition Motor exam (neuro): 5/5 motor strength present throughout Psych Other: Teary at times Appearance: grossly normal Mental Status: mental status grossly normal Speech and movement: Normal speech and movement present Affect: normal affect Attitude: cooperative Thought process: Normal thought process present Thought content: Normal thought content present Insight: Good insight present (Psych) Judgement: Good judgement present (Psych) Results Reviewed Results Reviewed: 05/16/25, CT/CT chest w IV con Subtle patchy soft tissue density in the anterior mediastinum 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 No evidence of a thymoma. Laboratory Tests 05/25/25 15:59 AST 95 H ALT 49 H Alkaline Phosphatase 64 06/27/25 10:03 WBC 6.6 RBC 3.81 L Hgb 11.6 L Hct 36.5 L MCV 95.8 Plt Count 252 Sodium 142 Potassium 4.3 Chloride 106 Carbon Dioxide 29 Anion Gap 11 L BUN 10 Creatinine 0.67 Estimated GFR > 60 Random Glucose 126 H Calcium 9.5 Total Bilirubin 0.2 AST 25 ALT 32 H Alkaline Phosphatase 62 Total Protein 7.2 Albumin 4.7 Labs retrieved from [facility] portal: Sed Rate 05/27/25 14:40 16 CK, Total 05/27/25 14:40 705 Anti-Nuclear Antibody Screen 05/27/25 14:40 positive Rheumatoid Factor 05/27/25 14:40 < 10 LULU Homogeneous Pattern *1:80 Assessment & Plan Assessment & Plan (1) Myasthenia gravis: Comment: ACHR-AB negative Code(s): G70.00 - Myasthenia gravis without (acute) exacerbation Category: Medical (2) Weakness: Code(s): R53.1 - Weakness Category: Medical (3) Impaired mobility and ADLs: Code(s): Z74.09 - Other reduced mobility; Z78.9 - Other specified health status Category: Medical (4) Diplopia: Code(s): H53.2 - Diplopia Category: Medical Plan As patient has ACHR AB negative and anti-MuSK AB negative myasthenia gravis symptoms continue to progress, and we have not seen significant improvement with starting mycophenolate: * anti-LRP4 antibody was drawn 06/28/2025, results pending * Reviewed chest CT with contrast-signs of thymic hyperplasia * Thoracic surgery consult as scheduled * If not done yet, consider In-lab PSG or In-lab PSG Pap titration with SMS- to further assess episodes of nocturnal hypoxemia and effectiveness of PAP t herapy. * Continue OT therapy for optimization of ADLs strategies, strength and endurance. * Continue PT therapy. * Future consideration, referral to neuromuscular neurology specialists For recent elevated CK and AST/ALT: Possible this was triggered by her GLP 1 antagonist therapy, Zepbound, or related to alcohol take/cessation, related to known fatty liver AST/ALT have returned to baseline Follow-up CK lab tests pending Continue to monitor CBC and CMP closely, and we will add lipid panel to next lab draw Patient to notify us with any new red flag signs or symptoms Continue Mycophenolate mofetil 500mg orally twice a day. Continue Mestinon ER 180mg ER twice a day. Continue Mestinon 60 mg tab- 1/2-1 tab 3 times a day as needed Would avoid chronic glucocorticoids, such as prednisone, use d/t risk for weight gain. Concur w/ weight loss efforts, optimizing diet, increasing physical and weight training exercises. Continue to avoid known MG triggers- heat/humidity. Monitor myasthenia symptoms- diplopia, swallowing, and generalized weakness. Follow-up with physiatry, Integrative Medicine, weight management, and GI as scheduled Will follow-up upon review of above and patient to follow-up in clinic in 6 months or sooner prn. Orders: Orders Lipid Panel with Reflex Today E78.5 - Hyperlipidemia, unspecified Coding Level of Care Code Est Pt Level 4 (25579) Diagnoses Myasthenia gravis G70.00 Weakness R53.1 Impaired mobility and ADLs Z74.09; Z78.9 Diplopia H53.2
== END 2025-06-29 08:38 | disposition home or self-care (01) ==
LOC: HO.HSMS 07:26
PROVIDERS: PCP Pediatrics; Visit Provider Nurse Practitioner Family
DX: G70.00 Myasthenia gravis without (acute) exacerbation (principal); R53.1 Weakness; Z74.09 Other reduced mobility; Z78.9 Other specified health status; H53.2 Diplopia
CPT/HCPCS: 99214

== ENCOUNTER 2025-07-15 08:07 | Outpatient (AMB) | payer OTHER, SELFPAY ==
--- NOTE | 2025-07-15 08:25 | MHC.OFFVISWM ---
Intake Visit Reasons: [employer] SW[facility] vs MWL BMI 50.1 Allergies hydromorphone (From Dilaudid) Allergy (Severe, Verified 07/15/25 08:25) Hives sulfamethoxazole (From Bactrim) Allergy (Severe, Verified 07/15/25 08:25) Rash trimethoprim (From Bactrim) Allergy (Severe, Verified 07/15/25 08:25) Rash clindamycin Allergy (Intermediate, Verified 07/15/25 08:25) Rash acetaminophen (From Percocet) Allergy (Mild, Verified 07/15/25 08:25) axitation erythromycin base Allergy (Mild, Verified 07/15/25 08:25) mg flare oxycodone (From Percocet) Allergy (Mild, Verified 07/15/25 08:25) axitation Medication List - Last Reconciled 07/15/25 by Ted Quinones MD cholecalciferol (vitamin D3) 50 mcg PO DAILY escitalopram oxalate (Lexapro) 10 mg PO DAILY ketoconazole 2% appl topical DAILY levothyroxine 75 mcg PO DAILY liothyronine (Cytomel) 5 mcg PO BID lisinopril 20 mg PO DAILY mometasone 0.1% appl topical DAILY multivitamin 1 tab PO DAILY mycophenolate mofetil (CellCept) 500 mg PO BID 30 days omega 1-aev-xyd-fish oil 1,200 (144-216) mg (Fish Oil) caps PO [probiotic PO] pyridostigmine bromide (Mestinon) 30 mg orally 6 times a day, may take extra 1-2 doses per day prn diplopia; 90 days pyridostigmine bromide ER (Mestinon Timespan) 180 mg PO BID 30 days HPI HPI TV [employer] SWL vs MWL BMI 50.1: Details: Start time: 8.19am, End time: 9.04am ?I spent 40 minutes speaking with the patient on the phone plus an additional 5 minutes reviewing and updating records for a total of 45 minutes HPI Comments Details: Previous weight loss efforts: self diets and exercise Wakes up: 6am, Sleeps:10pm Breakfast: skips Lunch: 12-1pm (Metogenic powder or premade [employer] (25gr) protein shake with egg salad) Dinner: 6.30pm (vegetables, chicken) Snacks: none Exercise: (has home treadmill) Beverages:Coffee (1 cup/d black), Tea: rarely, Soda: none, Juice: none, ETOH: none PFSH Medical History (Updated 07/15/25 @ 08:47 by Ted Quinones MD) History of open sigmoidectomy Anxiety Hypertension Morbid obesity COVID-19 virus infection Depression Hypothyroidism Surgical History Hx of cholecystectomy Family History Mother Diabetes HTN (hypertension) Hyperlipidemia Glaucoma Father Diabetes HTN (hypertension) Hyperlipidemia Skin cancer Primary vitiligo Hx of Minh thyroiditis Social History Alcohol intake: current Alcohol intake frequency: a few times a week Patient Tobacco Use Status: Never used Tobacco Telehealth Telehealth Telehealth Platform: Telephone Location of provider rendering services: practice address Location of patient: address on file Patient Identification confirmed using: Name, : Yes Telehealth method: voice only Patient verbally consented to treatment: Yes Patient verbally consented to billing insurance company: Yes Patient informed of any privacy concerns related to visit: Yes Minutes spent on Phone/Video with Pt.: 45 Assessment & Plan Assessment & Plan (1) Morbid obesity: Code(s): E66.01 - Morbid (severe) obesity due to excess calories Category: Medical Plan: 1.? Plan for lap sleeve gastrectomy. If diaphragmatic or ventral hernias are present at time of surgery, these will be repaired laparoscopically as well. I emphasized the importance of close follow-up, adherence to instructions and good communication. The surgery does not replace the need to change your lifestlyle which is the cause of the obesity problem. The surgery provides the motivation to try again to change your lifestyle, it reduces the appetite and make the transition to a better lifestyle easier and doubles the amount of weight you would lose compared to doing the lifestyle change without the surgery. You will need to be on a liquid diet with protein shakes for 2 weeks before surgery to maximize weight loss and boost your nutritional status to recover better from surgery and also for the first two weeks after surgery to let the stomach heal before we introduce other foods. After the first 2 weeks we will introduce protein bars and soft foods like scrambled eggs, cottage cheese and yogurt and after the 6th week will introduce meat, fish and cooked vegetables in small amounts. Over time you should be able to eat everything in small amounts. Side effects like nausea, vomiting, heartburn or abdominal pain are not common in the practice unless you are not following in the practice. This operation requires lifetime commitment to following in our practice and communication with me. You will much less weight and experience side effects if you don?t communicate or not following in the practice. Complications are rare and in our practice is about 1/10 of the national average. However, you can develop bleeding that may require transfusion (hasn?t happened for year in the practice), you may from complications (we did not have any deaths in the practice) and infections. Infections are usually a result of breakdown in communication or not understanding or following directions correctly. They are difficult to treat, they can happen during the first 6 weeks, they may require to be in the hospital for weeks or even months, not being able to eat by mouth and you may have drains and surgeries to try and correct the issue. Other risks and complications include possible conversion to an open procedure, leaks, small bowel obstruction, blood clots, cardiac, or pulmonary complications, as intermodal dispatcher complications such as ulcers, insufficient weight loss and vitamin deficiencies. 1.?Nutritional counseling. Start with one premade [employer]ms protein shake (8oz of [employer], NOT the whole bottle) at 7am-9am, one protein bar (Fit Crunch protein bar, buy at [employer], or [employer]) at 10am-12pm, another premade PREMIER protein shake (mix 4oz of Premier mixed with 4oz low fat unsweetened almond milk each) at 1pm-3pm, another Fit Crunch protein bar,? dinner at 7pm (8 forks of protein and 8 forks of salad/vegetables). So you do 2 protein shakes, 2.5 protein bars and one meal per day. Meal to include lean meat (beef, fish, pork, turkey, chicken), or hong konger yogurt, or egg whites, or beans with a salad with olive oil and fruits (berries, pears, apples, kiwi). Avoid salt, breads, potatoes, rice, pasta, desserts. 3. Each shake would be drunk slowly, like coffee in a period of 2 hours. 4. Cut each bar in 4 pieces and eat each piece in 30min ?to make each bar last 2 hours. 5. I emphasized the importance of measuring accurately the food portion and measure it when serving the food in plate 6. The meal portions include 10 full-size forks of meat and 10 full-size forks of salad. You always eat the meat portion but you can replace up to 5 forks for salad/vegetables with rice, potatoes or pasta, or a fruit ?if you like. The less you do it the better weight loss will be. 7. One full-size fork is what it can be scooped on the fork without falling aside and not what can be bit with the fork. Use regular forks like those you find in a typical restaurant. 8.? Please buy the body composition scale we discussed and send me weight measurements as soon as possible and then once a week. Always include your diet and exercise plan. 9. Start treadmill with an incline of 0.0 and speed of 2.0mph. Increase incline by 1 every 3 min to a max incline of 0.0, stay 3min at 6.0 and then return to 0.0 and repeat same steps until calorie goal is met. Goal is to burn 2000 calories per week on exercise, which means either 300 calories daily. You could break out the 300 calorie session to either 3 sessions of 100 calories, or 2 sessions per day for 150 calories per work-out. 10.?It is important of avoiding and for at least 18 months postoperatively and has been discussed at the infosession. 11. Goal is to lose at least 1.5-2lbs per week 12. Goal to lose 10% of your weight before surgery, which is about 27lbs. Ultimate weight goal: 245lbs before surgery 13. Please follow the diet plan exactly without any change. If you don't like something about the plan or you feel hungry you need to communicate with me so I can help you revise the plan. You should not change the plan yourself 14. To be scheduled for EGD to assess the stomach's anatomy. The possibility of biopsies was discussed. Patient needs to avoid use of NSAIDs and aspirin for 1 week prior to EGD. You must be on liquids only the day before your endoscopy. Risks of perforation and bleeding was discussed with the patient. This will be an outpatient procedure with IV sedation. 15. Please do the following test: Check your heart rate at rest (at your sleep). Walk for exactly one mile distance as fast as you can and ceck your heart rate again as soon as you complete the mile walk. Text me the heart rate at rest and after the walk and the time in minutes and seconds that took you to complete the mile walk. You can use your smartphone's stopwatch to track accurately the time it took to walk the mile. Orders: Orders Zinc Today E03.9 - Hypothyroidism, unspecified, E66.01 - Morbid (severe) obesity due to excess calories, E78.5 - Hyperlipidemia, unspecified, I10 - Essential (primary) hypertension C Reactive Protein Today E03.9 - Hypothyroidism, unspecified, E66.01 - Morbid (severe) obesity due to excess calories, E78.5 - Hyperlipidemia, unspecified, I10 - Essential (primary) hypertension Ferritin Today E03.9 - Hypothyroidism, unspecified, E66.01 - Morbid (severe) obesity due to excess calories, E78.5 - Hyperlipidemia, unspecified, I10 - Essential (primary) hypertension US abdomen comp w elastography Today E03.9 - Hypothyroidism, unspecified, E66.01 - Morbid (severe) obesity due to excess calories, E78.5 - Hyperlipidemia, unspecified, I10 - Essential (primary) hypertension XR chest 2V Today E03.9 - Hypothyroidism, unspecified, E66.01 - Morbid (severe) obesity due to excess calories, E78.5 - Hyperlipidemia, unspecified, I10 - Essential (primary) hypertension ECG 12 lead EKG Today E03.9 - Hypothyroidism, unspecified, E66.01 - Morbid (severe) obesity due to excess calories, E78.5 - Hyperlipidemia, unspecified, I10 - Essential (primary) hypertension Insulin Today E03.9 - Hypothyroidism, unspecified, E66.01 - Morbid (severe) obesity due to excess calories, E78.5 - Hyperlipidemia, unspecified, I10 - Essential (primary) hypertension Hemoglobin A1c Today E03.9 - Hypothyroidism, unspecified, E66.01 - Morbid (severe) obesity due to excess calories, E78.5 - Hyperlipidemia, unspecified, I10 - Essential (primary) hypertension H Pylori Breath Test Today E03.9 - Hypothyroidism, unspecified, E66.01 - Morbid (severe) obesity due to excess calories, E78.5 - Hyperlipidemia, unspecified, I10 - Essential (primary) hypertension Complete Blood Count Auto Diff Today E03.9 - Hypothyroidism, unspecified, E66.01 - Morbid (severe) obesity due to excess calories, E78.5 - Hyperlipidemia, unspecified, I10 - Essential (primary) hypertension Lipid Panel Today E03.9 - Hypothyroidism, unspecified, E66.01 - Morbid (severe) obesity due to excess calories, E78.5 - Hyperlipidemia, unspecified, I10 - Essential (primary) hypertension IRON PROFILE Today E03.9 - Hypothyroidism, unspecified, E66.01 - Morbid (severe) obesity due to excess calories, E78.5 - Hyperlipidemia, unspecified, I10 - Essential (primary) hypertension Comprehensive Met. Panel Today E03.9 - Hypothyroidism, unspecified, E66.01 - Morbid (severe) obesity due to excess calories, E78.5 - Hyperlipidemia, unspecified, I10 - Essential (primary) hypertension Vitamin B12 and Folate Today E03.9 - Hypothyroidism, unspecified, E66.01 - Morbid (severe) obesity due to excess calories, E78.5 - Hyperlipidemia, unspecified, I10 - Essential (primary) hypertension Vitamin B1 Today E03.9 - Hypothyroidism, unspecified, E66.01 - Morbid (severe) obesity due to excess calories, E78.5 - Hyperlipidemia, unspecified, I10 - Essential (primary) hypertension Vitamin A Today E03.9 - Hypothyroidism, unspecified, E66.01 - Morbid (severe) obesity due to excess calories, E78.5 - Hyperlipidemia, unspecified, I10 - Essential (primary) hypertension TSH reflex Free T4 Today E03.9 - Hypothyroidism, unspecified, E66.01 - Morbid (severe) obesity due to excess calories, E78.5 - Hyperlipidemia, unspecified, I10 - Essential (primary) hypertension Vitamin D 25-OH Total Today E03.9 - Hypothyroidism, unspecified, E66.01 - Morbid (severe) obesity due to excess calories, E78.5 - Hyperlipidemia, unspecified, I10 - Essential (primary) hypertension FL upper GI w air Today E03.9 - Hypothyroidism, unspecified, E66.01 - Morbid (severe) obesity due to excess calories, E78.5 - Hyperlipidemia, unspecified, I10 - Essential (primary) hypertension Referrals Behavioral Health Referral E03.9 - Hypothyroidism, unspecified, E66.01 - Morbid (severe) obesity due to excess calories, E78.5 - Hyperlipidemia, unspecified, I10 - Essential (primary) hypertension Nutrition/Dietitian Referral E03.9 - Hypothyroidism, unspecified, E66.01 - Morbid (severe) obesity due to excess calories, E78.5 - Hyperlipidemia, unspecified, I10 - Essential (primary) hypertension
== END 2025-07-15 09:04 | disposition home or self-care (01) ==
LOC: HO.HBS 08:07
PROVIDERS: PCP Pediatrics; Visit Provider Surgery
DX: E66.01 Morbid (severe) obesity due to excess calories (principal)
CPT/HCPCS: 99204

== ENCOUNTER 2025-07-22 08:58 | Outpatient (REF) | payer OTHER, SELFPAY ==
--- OUTSIDE RECORDS SUMMARY | 2025-04-18 06:58 | XMS_ITS | Continuity of Care Document ---
Author Organization [facility] Address [address] [place] [address] Phone Care Team Providers Care Dry Kiln Burner Name Role Phone Charlie VALDEZ, Carlene Pedroza [...] Diagnoses Date Provider Providers Copied on Encounter [facility] MD JEROME, [address] [place] [address] Dr Barrera 1000[facility] [address], [id number], [place] tel:[phone] [facility] - [facility] No Information 5 Charlie Concepcion. [address], [place], [place], [id number], [place]. tel:[phone] Office/Outpt E&M Established 15 [facility] [place] & [facility] MD JEROME, [address] [place] [address] Dr Barrera 1000[facility] [place], [id number], [place] tel:[phone] [facility] - [facility] Localized edemaVenous insufficienc y (chronic) (peripheral) Lymphedema, not elsewhere classifiedLi poedma 5 Axel VALDEZ RVT, AJITH Fox. [address] [place] [address], [id number], [place]. tel:[phone] Referring Provider: Angelo Pinzon, [address] [place] [address], [place], [address]. tel:[phone] [facility] MD JEROME, [address] [place] [address] Dr Barrera [address] 1000[place], [id number], [place] tel:[phone] [facility] Chronic venous hypertension (idiopathic) with other complication s of bilateral lower extremity 5 Axel VALDEZ RVT, AJITH Fox. [address] [place] [address], [place], [place], [id number], [place]. tel:[phone] Referring Provider: Angelo Pinzon, [address] [place] [address], [place], [address]. tel:[phone] [facility], [address] [place] [address] Dr Barrera [address], [id number], [place] tel:[phone] CVR - [place] [facility] [place] Encounter for follow-up examination after completed treatment for conditions other than malignant neoplasmPain in left leg Feb- 5 Axel VALDEZ RVT, AJITH Fox. [address] [place] [address], [address], [id number], [place]. tel:[phone] Referring Provider: Angelo Pinzon, [address] [place] [address] [place] [address], [place] [address], [place] [address]. tel:[phone] [facility], [address] [place] [address] Dr Barrera [address] 1000[place], [id number], [place] tel:[phone] [facility] - [facility] Varicose veins of left lower extremity with other complication s Feb- 5 Axel VALDEZ RVT, AJITH Fox. [facility]0 [facility], [address], [id number], [place]. tel:[phone] Referring Provider: Angelo Pinzon, [facility] [place] [address] [place] [address], [place], [address]. tel:[phone] [facility], [address] [place] [address] Dr Barrera 1000Suite [place], [id number], [place] tel:[phone] [facility] - [facility] Encounter for follow-up examination after completed treatment for conditions other than malignant neoplasmVari cose veins of right lower extremity with pain Feb- 5 Axel VALDEZ RVT, AJITH Fox. [address] [place] [address], [address], [id number], [place]. tel:[phone] Referring Provider: Angelo Pinzon, [address] [place] [address] [place] [address], [place] [address], [place], [address]. tel:[phone] Maur[facility], [address] [place] [address] Dr [address], [place], [id number], [place] tel:[phone] [facility] - [place] [facility] [place] Varicose veins of right lower extremity with other complication s 5 Axel VALDEZ RVT, AJITH Fox. [address] [place] [address], [id number], [place]. tel:[phone] Referring Provider: Angelo Pinzno, [address] [place] [address], [facility] [place], [address]. tel:[phone] [facility], [address] [place] [address] Dr Barrera 1000[facility] [address], [id number], [place] tel:[phone] [facility] - [place] [facility] [place] No Information 5 Axel VALDEZ RVT, AJITH Fox. [address] [place] [address], [id number], [place]. tel:[phone] [facility], [address] [place] [address] [address] [place] [address] [place], [id number], [place] tel:[phone] [facility] - [facility] Chronic venous hypertension (idiopathic) with inflammation of right lower extremity 5 Axel VALDEZ, LUCY, AJITH Fox. [address] [place] [address], [id number], [place]. tel:[phone] Referring Provider: Angelo Pinzon, [address] [place] [address], [facility] [place], [address]. tel:[phone] Offic/outpt E&m Estab 5 Min Trial- Telemedicine [place] & [place] [facility] [facility], [address] [place] [address] Dr Barrera 1000[facility] 1000[place], [id number], [place] tel:[phone] [facility] - [place] [facility] [place] Localized edemaVenous insufficienc y (chronic) (peripheral) 5 Jarocho Suh. [address] [place] [address], [id number], [place]. tel:[phone] Referring Provider: Angelo Pinzon, [address] [facility] [address] [place] [address], [place] [address], [place], [address]. tel:[phone] Offic Cons New/estab Mod 40 Mi- [place] & [place] [facility], [address] [place] [address] [facility] 1000[address], [place], [id number], [place] tel:[phone] [facility] - [facility] Chronic venous hypertension (idiopathic) with other complication s of bilateral lower extremityLoc alized edema 5 Axel VALDEZ RVT, AJITH Fox. [address] [place] [address], [id number], [place]. tel:[phone] Referring Provider: Angelo Pinzon, [facility]0 [facility] [address] [place] [address], [place], [address]. tel:[phone] [facility], [address] [place] [address] [address] 1000, [place], [id number], [place] tel:[phone] [facility] Chronic venous hypertension (idiopathic) with other complication s of bilateral lower extremity 5 Axel VALDEZ RVT, AJITH Fox. [address] [place] [address], [place] [address], [place], [place], [id number], [place]. tel:[phone] Referring Provider: Angelo Pinzon, [facility]0 [facility] [address] [place] [address], [place], [address]. tel:[phone] Family History Family Member Type Diagnosis Age At Onset No Information Payers Payer name Insurance type Covered libertarian ID Doris nickerson([employer] [place] [id number] Social History Type Description Quantity Date Captured [...] Localized edema Lifestyle education Related to B iztel mass index (BMI) 50-59.9 , adult Giving [...]
--- NOTE | ~2025-07-22 | XR_ITS ---
EXAMINATION: XR CHEST 2 VIEWS HISTORY: E66.01 - Morbid (severe) obesity due to excess calories COMPARISON: Correlation is made with a CT dated 05/16/2025. FINDINGS: PA and lateral views of the chest are submitted. The lungs are expanded and clear. There is no pleural effusion, pneumothorax, or pulmonary vascular congestion. The heart is normal in size. The bones are intact. XR/XR chest 2V IMPRESSION: No acute cardiopulmonary abnormality. Electronically signed by: Ruddy Chan MD 07/22/2025 09:27 AM EDT
--- NOTE | 2025-07-22 09:04 | ECG_ITS ---
Test Reason : mor obs Blood Pressure : */* mmHG Vent. Rate : 83 BPM Atrial Rate : 83 BPM P-R Int : 130 ms QRS Dur : 78 ms QT Int : 364 ms P-R-T Axes : 56 7 26 degrees QTcB Int : 427 ms Normal sinus rhythm Normal ECG No previous ECGs available Referred By: Ted Quinones Electronically Signed By: Evert Miranda
--- OUTSIDE RECORDS SUMMARY | 2025-07-22 09:42 | XMS_ITS | Clinical Summary ---
Author Organization [facility] Address [address] [facility] [address] [place] [phone] Phone Care Team Providers Care Airline Lounge Receptionist Name Role Phone Angelo Dey MD Primary [...] Surgery [facility] Endoscopy Admitting Dept Virtual Department [address] [place] [phone] Toni Montague MD COLONOSCOPY 06/21/2025 8:09 AM EDT Anesthesia Event [facility] Endoscopy Admitting Dept Virtual Department [address] [place] [address] 13216 Ezio Mercer Jr., DO 06/21/2025 6:55 AM EDT - 06/21/2025 9:12 AM EDT Hospital Encounter [facility] Endoscopy Admitting Dept Virtual Department [address] [place] [address]52 Toni Montague MD Discharge Disposition: Home or Self Care 06/21/2025 Procedure Pass [facility] Endoscopy Admitting Dept Virtual Department [address] [place] [address] 06/15/2025 3:00 PM EDT Pre-Admission Testing Pre Procedure Evaluation [address] [place] [address] [phone] Toni Montague MD from Last 3 Months [...] Procedure Name Priority Date/Time Associated Diagnosis Comments AL COLSC FLX W/RMVL OF TUMOR POLYP LESION SNARE TQ 06/21/2025 8:10 AM EDT colon Special Needs CHRIS/CPAP AL COLONOSCOPY W/BIOPSY SINGLE/MULTIPLE 06/21/2025 8:10 AM EDT colon Special Needs CHRIS/CPAP AL COLONOSCOPY FLX DX W/COLLJ SPEC WHEN PFRMD 06/21/2025 8:10 AM EDT colon Special Needs CHRIS/CPAP ENDOSCOPY, COLON 06/21/2025 8:08 AM EDT ANATOMIC PATHOLOGY Routine 06/21/2025 12 :00 AM EDT from Last 3 Months Results * ENDOSCOPY, COLON (06/21/2025 8:08 AM EDT) Narrative Transcriptions Toni Montague MD - 06/21/2025 8:08 AM EDT [facility] Patient Name: Joanna Conway Attending MD:: TONI MONTAGUE MD, Procedure Date: 06/21/2025 8:08 AM Date of : 1980 Age: 45 Admit Type: Outpatient Gender: Female Room: [facility] Referring MD: Angelo Dey MD Exam Type: [...] bowel preparation was evaluated using the BBPS ([place] Bowel Preparation Scale) with scores of:Right Colon [...] minimal. There was evidence of a prior cfq-kr-hqzrfpu-colonic anastomosis in the sigmoid colon. This was [...] 8:08 AM Procedure Code(s): --- Professional --- 35734, Colonoscopy, flexible; with removal of tumor(s), polyp(s), or other lesion(s) by snare technique --- Technical --- 83331, Colonoscopy, flexible; with removal of tumor(s), polyp(s), [...] or abscess without bleeding CPT copyright 2021 [employer]. All rights reserved. The codes documented in this report are preliminary and upon lace winder reviewmay be revised to meet current compliance requirements. Procedure Date: 06/21/2025 8:08:[address] [place] [id number] us Angelo Dey MD GI PROCEDURE ORDERABLE S Final Result * Anatomic Pathology (06/21/2025 12:00 AM EDT) 06/21/2025 06/21/2025 10: 41 AM EDT Narrative SEE NARRATIVE - 06/22/2025 2:51 PM EDT [address] [address] Promotional Advertising Assistant: Sanju Dominguez MD Surgical Pathology Report FINAL [...] entirely submitted A1. DN 06/21/2025 Grossing Staff: [facility] Patient Name: JOANNA CONWAY : 1980 (Age: 45) Sex: F Institution: [facility] Date of Operation: 06/21/2025 Date of Reported: 06/22/2025 14:51 Results To: Toni Dey MD us Toni Montague MD PATHOLOGY ORDERABLES Final Res ult SEE NARRATIVE from Last 3 Months Insurance Member Subscriber Plan / Payer (Ef fective 2022-Present) Name:Joanna Conway Relation to Subscriber:Self Name:Joanna Conway Payer ID:Not on file Type:HMO Address: [place] [id number] Member Subscriber Plan / Payer (Ef fective 2022-Present) Name:Joanna Conway Relation to Subscriber:Self Name:Joanna Conway Payer ID:Not on file Type:O Address: [place] [phone] Care Teams Airline Lounge Receptionist Relationship Specialty Start Date End Date Angelo Dey MD [address] [place] [address] PCP - General Internal Medicine 06/21/25 Additional Source Comments The information contained in this document represents components of the legal health record. It is not the complete legal health record.[facility]
--- OUTSIDE RECORDS SUMMARY | 2025-07-22 09:42 | XMS_ITS | Encounter Summary ---
Author Organization [facility] Address [address] [place] [address] Phone Care Team Providers Care Clothing Manager Name Role Phone Angelo Dey MD Primary Care Provider Encounter Details Date Type Department Care Team (Late st Contact Info) Description 06/21/2025 Procedure Pass [facility] Endoscopy Admitting Dept Virtual Department [address] [place] [address] Social History Tobacco Use Types Packs/Day Years [...] 7:14 AM EDT Francy Perera RN * [place] Suicide Severity Rating Scale (Screener/Recent Self-Report) Question [...] on filedocumented in this encounter Care Teams Clothing Manager Relationship Specialty Start Date End Date Angelo Dey MD [address] [place] [address] PCP - General Internal Medicine 06/21/25 documented as of this encounter Additional Source Comments The information contained in this document represents components of the legal health record. It is not the complete legal health record.[facility]
[2025-07-22 09:56] LABS: MANUAL DIFF FLAG NO
[2025-07-22 10:30] LABS: Hematocrit 38.0 % (37.0-47.0); Hemoglobin 12.4 g/dl (12.0-16.0); Imm Gran Abs Auto 0.01 X10*3/uL (0.00-0.03); Imm Gran Pct Auto 0.2 % (0.0-0.4); Lymphocytes Absolute Auto 1.9 X10*3/uL (1.2-4.9); Mean Corpuscular HGB Conc 32.6 g/dl (31.0-35.0); Mean Corpuscular Hemoglobin 30.5 pg (27.0-33.0); Mean Corpuscular Volume 93.6 fL (80.0-98.0); NRBC Abs Auto 0.000 X10*3/uL (0.0-0.012); NRBC Pct Auto 0.0 /100WBC (0.0-0.2); Platelet Count 263 X10*3/uL (160-400); Red Blood Count 4.06 X10*6/uL (4.20-5.50); White Blood Count 5.6 X10*3/uL (4.8-10.8)
[2025-07-22 10:54] LABS: Hemoglobin A1C 125.5513 umol/L; Total Hemoglobin (HGBA1C) 3267.1511 umol/L
[2025-07-22 10:55] LABS: Alanine Aminotransferase 26 U/L (0-31); Albumin Level 4.9 g/dL (3.5-5.0); Alkaline Phosphatase 74 U/L (39-117); Anion Gap 13 (12-20); Aspartate Amino Transferase 28 U/L (5-31); Blood Urea Nitrogen 19 mg/dL (9-16); Calcium 9.5 mg/dL (8.4-10.2); Carbon Dioxide 26 mmol/L (22-29); Chloride 105 mmol/L (96-108); Cholesterol 222 mg/dL (<200); Estimated Glomerular Filt Rate > 60; HDL Cholesterol 50 mg/dL (>40); Iron 57 mcg/dL (30-160); Percent Iron Saturation 20 % (15-50); Potassium 4.5 mmol/L (3.3-5.1); Sodium 139 mmol/L (135-145); Total Iron Binding Capacity 288 mcg/dL (228-428); Total Protein 7.3 g/dL (6.5-8.0); Triglycerides 109 mg/dL (<150); Unsaturated Iron Binding 231 ug/dL
[2025-07-22 11:21] LABS: Ferritin 67 ng/mL (10-250)
[2025-07-22 11:29] LABS: Folate 16.1 ng/mL (> or = 4.0); Vitamin B12 1867 pg/mL (200-900)
[2025-07-22 13:01] LABS: Reflex LDLD? No
== END 2025-07-22 08:59 | disposition home or self-care (01) ==
LOC: HO.XRAY 08:58
PROVIDERS: Absent Provider Surgery; PCP Pediatrics; Visit Provider Nurse Practitioner Family
DX: G70.00 Myasthenia gravis without (acute) exacerbation (principal); E78.5 Hyperlipidemia, unspecified; I10 Essential (primary) hypertension; E03.9 Hypothyroidism, unspecified; E66.01 Morbid (severe) obesity due to excess calories; Z13.1 Encounter for screening for diabetes mellitus; Z13.0 Encounter for screening for diseases of the blood and blood-forming organs and certain disorders involving the immune mechanism
CPT/HCPCS: 36415; 71046; 80053; 80061; 82306; 82607; 82728; 82746; 83036; 83525; 83540; 84425; 84443; 84590; 84630; 85025; 86140; 93005

== ENCOUNTER → 2025-07-22 09:04 | Outpatient (BNV) | payer OTHER, SELFPAY | PROVIDERS: Absent Provider Surgery; PCP Pediatrics; Visit Provider Internal Medicine Cardiovascular Disease | DX: E66.01 Morbid (severe) obesity due to excess calories (principal) | CPT/HCPCS: 93010 ==

== ENCOUNTER → 2025-07-22 09:11 | Outpatient (BNV) | payer OTHER, SELFPAY | PROVIDERS: Absent Provider Surgery; PCP Pediatrics; Visit Provider Radiology Diagnostic Radiology | DX: E66.01 Morbid (severe) obesity due to excess calories (principal) | CPT/HCPCS: 71046 ==

== ENCOUNTER 2025-07-28 12:11 | Outpatient (AMB) | payer OTHER, SELFPAY ==
--- NOTE | 2025-07-28 12:05 | A.OFFWM_ITS ---
Intake Intake Visit Reasons: VIDEO BH Intake Allergies hydromorphone (From Dilaudid) Allergy (Severe, Verified 07/15/25 08:25) Hives sulfamethoxazole (From Bactrim) Allergy (Severe, Verified 07/15/25 08:25) Rash trimethoprim (From Bactrim) Allergy (Severe, Verified 07/15/25 08:25) Rash clindamycin Allergy (Intermediate, Verified 07/15/25 08:25) Rash acetaminophen (From Percocet) Allergy (Mild, Verified 07/15/25 08:25) axitation erythromycin base Allergy (Mild, Verified 07/15/25 08:25) mg flare oxycodone (From Percocet) Allergy (Mild, Verified 07/15/25 08:25) axitation PFSH Medical History (Updated 07/15/25 @ 08:47 by Ted Quinones MD) History of open sigmoidectomy Anxiety Hypertension Morbid obesity COVID-19 virus infection Depression Hypothyroidism Surgical History Hx of cholecystectomy Family History Mother Diabetes HTN (hypertension) Hyperlipidemia Glaucoma Father Diabetes HTN (hypertension) Hyperlipidemia Skin cancer Primary vitiligo Hx of Minh thyroiditis Social History Alcohol intake: current Alcohol intake frequency: a few times a week Patient Tobacco Use Status: Never used Tobacco Behavioral Health Assessment Weight Management Therapy Therapy Notes Details The patient is a 45-year-old female presenting for an initial behavioral health assessment as part of the surgical weight loss program. She reports that both her primary care provider and neurologist have recommended bariatric surgery due to persistent difficulty losing weight, despite trials of Ozempic, Zepbound, and ongoing nutritional counseling. She carries a neuromuscular diagnosis, and excess weight is significantly impacting her daily functioning. The patient notes a lifelong struggle with weight, with an approximate 100 lb gain since the onset of the COVID-19 pandemic and perimenopause. Presenting Concerns Referral Source WMP-Provider. Reason for referral Completion of behavioral health assessment as part of process for weight-loss surgery. Precipitating Event Obesity. Living Situation Current Living Situation Own At risk of losing current housing? No Satisfied with current living situation? Yes Comments PT lives with his , 3 children, co-parents (2 dads) and one of the dad's mom. Also 4 cats and 1 dog. Food/Weight/Diet Expectations of change Initial goal is to Patient goals are PT is implementing the following: Current meal plan: Exercise plan: History/Relationship with food Example of meals before starting the program: Breakfast: Lunch: Dinner: Snacks: Drinks/Liquids: History/Relationship with weight In the last 10 years, the patient's Lowest weight was 175Lbs and the highest 290Lbs Social History Family history and relationship The patient has been with her for 25 years and for 21 years. Although they are no longer romantically involved, they maintain a strong partnership and are in a polyamorous relationship with a male partner who has lived with them for the past 10 years. They have three children, all carried by her . The children?s biological father, who is not romantically involved with the adults, resides with the family on the [address]. Both of the patient?s parents are alive, and she has one brother who is with two children. The patient describes herself as very close to her family. 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 Developmental history and status ADHD diagnosed as an adult in 2021. Social support , partner, kids, bio-dad. Friends from [place] and work. Community support PCP, providers. Voodoo/Spirituality Tenriism goes to [employer]. The rest of her household is Yazdanism. Cultural/Ethnic information . Legal Involvement and History Current or historical involvement with the legal system? None reported. Education Highest grade completed Masters degree. Preferred learning style Auditory and Visual Currently enrolled in educational program? No Interested in further educational program? 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 ) Wants help to find employment? No Meaningful activities family activities, theater, museums, concerns. Reading, writing, some visual arts. Financial Situation Describe current financial situation Occasional struggle Financial assistance? None Service Service? No Mental Health and Addiction Treatment0 Psychiatric history PT is currently in counseling, she has been seeing a probation worker in private practice, Jessica Wallace, since January 2020. Her PCP currently prescribes her Lexapro 10mg. Pt has been diagnosed with Major Depression, CHRISTIE, panic disorder and ADHD. PT denies ever been in crisis, inpatient for mental health, She had a history of SI on and off and had 3 SA in adolescence. Denies any safety concern in aduldhood Pain Screening Current pain? Yes Pain in the last few months? Yes Trauma/Abuse History History of trauma? No (AISHA score: 2) Questionnaires PHQ-9 Over the last 2 weeks, how often have you been bothered by any of the following problems? 1. Little interest or pleasure in doing things: several days 2. Feeling down, depressed, or hopeless: more than half the days 3. Trouble falling or staying asleep, or sleeping too much: not at all 4. Feeling tired or having little energy: more than half the days 5. Poor appetite or overeating: more than half the days 6. Feeling bad about yourself - or that you are a failure or have let yourself or your family down: more than half the days 7. Trouble concentrating on things, such as reading the newspaper or watching television: nearly every day 8. Moving or speaking so slowly that other people could have noticed. Or the opposite - being so fidgety or restless that you have been moving around a lot more than usual: several days 9. Thoughts that you would be better off or of hurting yourself in some way: not at all Total score: 13 Depression Screening Interpretation: Positive (From new Pt pack completed on 06/06/25, a new one will be administered at next melissa) Depression Screening Follow -up: Existing condition and In treatment Depression Screening Done: Yes Source: Developed by Drs. Ruddy Guy, Megha Richardson, Glenn Prince and colleagues, with an educational sil from [employer]. Binge Eating Scale Group 1 A. I don't feel self-conscious about my wt. or body size when I'm with others. B. I feel concerned about how I look to others, but it normally does not make me fell disappointed with myself C. I do get self-conscious about my appearance and wt. which makes me feel disappointed in myself. D. I feel very self-conscious about my wt. and frequently I feel intense shame and disgust for myself. I try to avoid social contacts because of my self- consciousness. Response Group 1: A Group 2 A. I don't have any difficulty eating slowly in the proper manner. B. Although I seem to gobble down foods, I don't end up feeling stuffed because of eating to much. C. At times, I tend to eat quickly and then, I feel uncomfortably full afterwards. D. I have the habit of bolting down my food, without really chewing it. When this happens I usually feel uncomfortably stuffed because I've eaten to much. Response Group 2: B Group 3 A. I feel capable to control my eating urges when I want to. B. I feel like I have failed to control my eating more than the average person. C. I feel utterly helpless when it comes to feeling in control of my eating urges. D. Because I feel so helpless about controlling my eating I have become very desperate about trying to get control. Response Group 3: B Group 4 A. I don't have the habit of eating when I'm bored. B. I sometimes eat when I'm bored, but often I'm able to get busy and get my mind off food. C. I have a regular habit of eating when I'm bored, but occasionally, I can use some other activity to get my mind off eating. D. I have a strong habit of eating when I'm bored. Nothing seems to help me breath the habit. Response Group 4: B Group 5 A. I'm usually physically hungry when I eat something. B. Occasionally, I eat something on impulse even though I really am not hungry. C. I have the regular habit of eating foods, that I might not really enjoy, to satisfy a hungry feeling even though physically, I don't need the food. D. Although I'm not physically hungry, I get a hungry feeling in my mouth that only seems to be satisfied when I eat a food, like sandwich, that fills my mouth. Sometimes, when I eat the food to satisfy my mouth hunger, I then spit the food out so I won't gain weight. Response Group 5: B Group 6 A. I don't feel any guilt or self-hate after I overeat. B. After I overeat, occasionally I feel guilt or self-hate. C. Almost all the time I experience strong guilt or self-hate after I overeat. Response Group 6: A Group 7 A. I don't lose total control of my eating when dieting even after periods when I overeat. B. Sometimes when I eat a forbidden food on a diet, I feel like I blew it and eat even more. C. Frequently, I have the habit of saying to myself, I've blown it now, why not go all the way, when I overeat on a diet. When that happens I eat more. D. I have a regular habit of starting a strict diets for myself but I break the diets by going on an eating binge. My life seems to be either a feast or famine. Response Group 7: B Group 8 A. I rarely eat so much food that I feel uncomfortably stuffed afterwards. B. Usually about once a month, I each such a quantity of food, I end up feeling very stuffed. C. I have regular periods during the month when I eat large amounts of food, either at mealtime or at snacks. D. I eat so much food that I regularly feel quite uncomfortable after eating and sometimes a bit nauseous. Response Group 8: B Group 9 A. My level of calorie intake does not go up very high or go down very low on a regular basis. B. Sometimes after I overeat, I will try to reduce my caloric intake to almost nothing to compensate for the excess calories I've eaten. C. I have a regular habit of overeating during the night. It seems that my routine is not to be hungry in the morning but overeat in the evening. D. In my adult years, I have had week-long periods where I practically starve myself. This follows periods when I overeat. It seems I live a life of either feast or famine. Response Group 9: B Group 10 A. I usually am able to stop eating when I want to. I know when enough is enough. B. Every so often, I experience a compulsion to eat which I can't seem to control. C. Frequently, I experience strong urges to eat which I seem unable to control, but at other times I can control my eating urges. D. I feel incapable of controlling urges to eat. I have a fear of not being able to stop eating voluntarily. Response Group 10: A Group 11 A. I don't have any problem stopping eating when I feel full. B. I usually can stop eating when I feel full but occasionally overeat leaving me feeling uncomfortably stuffed. C. I have a problem stopping eating once I start and usually I feel uncomfortably stuffed after I eat a meal. D. Because I have a problem not being able to stop eating when I want, I sometimes have to induce vomiting to relieve my stuffed feeling. Response Group 11: B Group 12 A. I seem to eat just as much when I'm with others, Family social gatherings as when I'm by myself. B. Sometimes, when I'm with other persons, I don't eat as much as I want to eat because I'm self-conscious about my eating. C. Frequently, I eat only a small amount of food when others are present, because I'm very embarrassed about my eating. D. I feel so ashamed about overeating that I pick times to overeat when I know no one will see me. I feel like a closet eater. Response Group 12: A Group 13 A. I eat three meals a day with only an occasional between meal snack. B. I eat 3 meals a day, but I also normally snack between meals. C. When I am snacking heavily, I get in the habit of skipping regular meals. D. There are regular periods when I seem to be continually eating, with no planned meals. Response Group 13: A Group 14 A. I don't think much about trying to control unwanted eating urges. B. At least some of the time, I feel my thoughts are pre-occupied with trying to control my eating urges. C. I feel that frequently I spend much time thinking about how much I ate or about trying not to eat anymore. D. It seems to me that most of my waking hours are pre-occupied by thoughts about eating or not eating. I feel like I'm constantly struggling not to eat. Response Group 14: B Group 15 A. I don't think about food a great deal. B. I have strong craving for food but they last only for brief periods of time. C. I have days when I can't seem to think about anything else but food. D. Most of my days seem to be pre-occupied with thoughts about food. I feel like I live to eat. Response Group 15: C Group 16 A. I usually know whether or not I'm physically hungry. I take the right portion of food to satisfy me. B. Occasionally, I feel uncertain about knowing whether or not I'm physically hungry. A these times it's hard to know how much food I should take to satisfy me. C. Even though I might know how many calories I should eat, I don't have any idea what is a normal amount of food for me. Response Group 16: A Binge Eating Score: 11 Score less than 17 Minimal Risk Score between 18-26 Moderate Risk Score between 27-46 High Risk Assessment & Plan Assessment & Plan (1) Generalized anxiety disorder: Code(s): F41.1 - Generalized anxiety disorder (2) Panic disorder: Code(s): F41.0 - Panic disorder [episodic paroxysmal anxiety] (3) Major depressive disorder: Code(s): F32.9 - Major depressive disorder, single episode, unspecified Qualifiers: Major depression recurrence: recurrent Active/Remission status: remission status unspecified Qualified Code(s): F33.9 - Major depressive disorder, recurrent, unspecified (4) Pre-bariatric surgery psychological evaluation: Code(s): Z71.89 - Other specified counseling Plan The patient was not cleared today as the assessment was not completed. The patient will return in 2-4 weeks to continue the evaluation. Next appointment: 08/25/25 at 10 am, video - Sooner melissa available however it conflicts with upcoming surgery. Telehealth Telehealth Telehealth Platform: [facility] Location of provider rendering services: other (Home office. [place], [place]) Location of patient: address on file Patient Identification confirmed using: Name, : Yes Telehealth method: video Patient verbally consented to treatment: Yes Patient verbally consented to billing insurance company: Yes Patient informed of any privacy concerns related to visit: Yes Minutes spent on Phone/Video with Pt.: 60 Coding Level of Care Code New Pt Tele Psy Diag Eval ([id number]) Patient Type New Diagnoses Generalized anxiety disorder F41.1 Panic disorder F41.0 Recurrent major depressive disorder, remission status unspecified F33.9 Major depression recurrence: recurrent Active/Remission status: remission status unspecified Pre-bariatric surgery psychological evaluation Z71.89 Time Spent (min) 60
--- OUTSIDE RECORDS SUMMARY | 2025-07-28 16:23 | XMS_ITS | Encounter Summary ---
Author Organization [facility] Address [address] [place] [id number] Phone Care Team Providers Care Special Effects Person Name Role Phone Angelo Dey MD Primary Care Provider Encounter Details Date Type Department Care Team (Late st Contact Info) Description 06/21/2025 Procedure Pass [facility] Endoscopy Admitting Dept Virtual Department [address] [place] [address] Social History Tobacco Use Types Packs/Day Years [...] 7:14 AM EDT Francy Perera RN * [place] Suicide Severity Rating Scale (Screener/Recent Self-Report) Question [...] on filedocumented in this encounter Care Teams Special Effects Person Relationship Specialty Start Date End Date Angelo Dey MD [address] [place] [address] PCP - General Internal Medicine 06/21/25 documented as of this encounter Additional Source Comments The information contained in this document represents components of the legal health record. It is not the complete legal health record.[facility]
== END 2025-07-28 13:05 | disposition home or self-care (01) ==
LOC: HO.HBST 12:11
PROVIDERS: PCP Pediatrics; Visit Provider Counselor Mental Health
DX: F41.1 Generalized anxiety disorder (principal); F41.0 Panic disorder [episodic paroxysmal anxiety]; F33.9 Major depressive disorder, recurrent, unspecified; Z71.89 Other specified counseling
CPT/HCPCS: 90791

== ENCOUNTER 2025-08-01 07:15 | Day surgery (SDC) | payer OTHER, SELFPAY ==
--- OUTSIDE RECORDS SUMMARY | 2025-04-18 06:58 | XMS_ITS | Continuity of Care Document ---
Author Organization [facility] Address [address] [place] [address] Phone Care Team Providers Care Casino Supervisor Name Role Phone Charlie VALDEZ, Carlene Pedroza [...] Diagnoses Date Provider Providers Copied on Encounter [facility] MD JEROME, [address] [place] [address] Dr Barrera 1000[facility] 1000[place], [id number], [place] tel:[phone] CVR - [facility] No Information 5 Charlie Concepcion. [address] [facility], [address], [place], [place], [id number], [place]. tel:[phone] Office/Outpt E&M Established 15 [facility]- CT & [facility] For [facility] Buddhist MD JEROME, [address] [place] [address] Dr Barrera 1000[facility] [place] H[place], [id number], [place] tel:[phone] CVR - [facility] Localized edemaVenous insufficienc y (chronic) (peripheral) Lymphedema, not elsewhere classifiedLi poedma 5 Axel VALDEZ RVT, AJITH Fox. [address] [place] [address], [id number], [place]. tel:[phone] Referring Provider: Angelo Pinzon, [address] [place] [address], [place], [address]. tel:[phone] [facility] MD JEROME, [address] [place] [address] Dr Barrera 1000Suite 1000Ed[place], [id number], [place] tel:[phone] [facility] Chronic venous hypertension (idiopathic) with other complication s of bilateral lower extremity 5 Axel VALDEZ RVT, AJITH Fox. [address] [place] [address], [place], [place], [id number], [place]. tel:[phone] Referring Provider: Angelo Pinzon, [address] [place] [address], [place], [address]. tel:[phone] [facility], [address] [place] [address] Dr Barrera 1000Suite 1000Ed[place], [id number], [place] tel:[phone] [facility] - [place] Encounter for follow-up examination after completed treatment for conditions other than malignant neoplasmPain in left leg Feb- 5 Axel VALDEZ RVT, AJITH Fox. [address] [place] [address], [address], [id number], [place]. tel:[phone] Referring Provider: Angelo Pinzon, [address] [place] [address] [place] [address], [place] [address], [facility] [place] [address]. tel:[phone] [facility], [address] [place] [address] Dr Barrera 1000Suite 1000Edgard [place], [id number], [place] tel:[phone] CVR - [facility] Varicose veins of left lower extremity with other complication s Feb- 5 Axel VALDEZ RVT, AJITH Fox. [facility], [address], [id number], [place]. tel:[phone] Referring Provider: Angelo Pinzon, [facility] [place] [address] [place] [address], [place], [address]. tel:[phone] Mauricio [facility], [address] [place] [address] Dr Barrera 1000Suite [place] Hilario MD, [id number], [place] tel:[phone] CVR - [facility] Encounter for follow-up examination after completed treatment for conditions other than malignant neoplasmVari cose veins of right lower extremity with pain Feb- 5 Axel VALDEZ RVT, AJITH Fox. [address] [place] [address], [address], [id number], [place]. tel:[phone] Referring Provider: Angelo Pinzon, [address] [place] [address] [place] [address], [place] [address], [place], [address]. tel:[phone] Mauricio [facility], [address] [place] [address] Dr [address] 1000Suite 1000Ed[place], [place], [id number], [place] tel:[phone] [facility] Varicose veins of right lower extremity with other complication s 5 Axel VALDEZ RVT, AJITH Fox. [address] [place] [address], [id number], [place]. tel:[phone] Referring Provider: Angelo Pinzon, [address] [place] [address], [facility] [place], [address]. tel:[phone] [facility], [address] [place] [address] Dr Barrera 1000[facility] 999Edgard [place], [id number], [place] tel:[phone] [facility] - [place] No Information 5 Axel VALDEZ RVT, AJITH Fox. [address] [place] [address], [id number], [place]. tel:[phone] [facility], [address] [place] [address] Dr Barrera [address] [place] [address] [place] H[place]io [place], [id number], [place] tel:[phone] CVR - [facility] Chronic venous hypertension (idiopathic) with inflammation of right lower extremity 5 Axel VALDEZ, LUCY, AJITH Fox. [address] [place] [address], [id number], [place]. tel:[phone] Referring Provider: Angelo Pinzon, [address] [place] [address], [facility] [place], [address]. tel:[phone] Offic/outpt E&m Estab 5 Min Trial- Telemedicine CT & [place] [facility], [address] [place] [address] Dr Barrera 1000[facility] 1000Edgard [place], [id number], [place] tel:[phone] [facility] - [place] Localized edemaVenous insufficienc y (chronic) (peripheral) 5 Jarocho Suh. [address] [place] [address], [id number], [place]. tel:[phone] Referring Provider: Angelo Pinzon, [address] [facility] [address] [place] [address], [place] [address], [place], [address]. tel:[phone] Offic Cons New/estab Mod 40 Mi- CT & [place] [facility], [address] [place] [address] [facility] 1000Suite 1000, [place], [id number], [place] tel:[phone] CVR - [facility] Chronic venous hypertension (idiopathic) with other complication s of bilateral lower extremityLoc alized edema 5 Axel VALDEZ RVT, AJITH Fox. [address] [place] [address], [id number], [place]. tel:[phone] Referring Provider: Angelo Pinzon, [facility] Main [facility] [address] [place] [address], [place], [address]. tel:[phone] [facility], [address] [place] [address] [address] 1000, [place], [id number], [place] tel:[phone] [facility] venous hypertension (idiopathic) with other complication s of bilateral lower extremity 5 Axel VALDEZ RVT, AJITH Fox. [address] [place] [address], [place] [address], [place], [place], [id number], [place]. tel:[phone] Referring Provider: Angelo Pinzon, [facility] [address] [place] [address], [place], [address]. tel:[phone] Family History Family Member Type Diagnosis Age At Onset No Information Payers Payer name Insurance type Covered democrat ID Doris nickerson([employer] [place] CI [id number] Social History Type Description Quantity Date Captured [...]
--- OUTSIDE RECORDS SUMMARY | 2025-07-15 23:59 | XMS_ITS | Continuity of Care Document ---
Author Organization [facility] Address [address] [place] [address]- Care Team Providers Care Environmental Director Name Role Phone Angelo Dey MD Primary Care Physician [phone] [id number] Date(s): 07/08/25 - 07/15/25 [facility] [address] [place] [address] Attending Physician: Alexandre Neil MD Encounter Type: Office Visit Allergies, Adverse Reactions, Alerts Substance Criticality Severity Reaction Reaction Severity Status clindamycin Active erythromycin Active Dilaudid Hives Active oxyCODONE Maddie Active sulfADIAZINE Active Paxil Active Wheat Active Medications custom right knee patellofemoral support brace custom right knee patellofemoral support brace, See Instructions, # 1 each, Refills 0, Tot. Refills0, Maintenance, use daily This brace will provide the patient ambulation independance and prevent falls and injuries, 05/27/25 2:24:00 PM EDT, Supply Start Date: 05/27/25 Status: Ordered Medication Dispense Status: Completed Quantity: 1.0 Unit: each Total Allowed Fills: 1 Fills Dispensed: 0 Indications: Other instability, right knee; Other instability, right knee; Body mass index [BMI] 45.0-49.9, adult; Cytomel 5 mcg oral tablet 1 tablet = 5 mcg, By Mouth, 2 times a day, # 30 tablet, 0 Refills, Maintenance, 06/20/18 9:55:31 PM EDT, Tablet Start Date: 06/20/18 Status: Ordered Medication Dispense Status: Completed Quantity: 30.0 Unit: tablet Total Allowed Fills: 1 Fills Dispensed: 0 escitalopram 10 mg oral tablet TAKE 1 TABLET BY MOUTH EVERY DAY Start Date: 05/27/25 Status: Ordered Medication Dispense Status: Completed Total Allowed Fills: 1 Fills Dispensed: 0 Ferrous Gluconate By Mouth, Daily, IRON, 0 Refills, Maintenance, 06/05/22 10:10:00 AM EDT, Partial fill upon patient request if the prescription is for a schedule II opioid drug. Start Date: 06/05/22 Status: Ordered Medication Dispense Status: Completed Total Allowed Fills: 1 Fills Dispensed: 0 Flonase Daily, 0 Refills, Maintenance, 06/05/22 10:10:00 AM EDT, Partial fill upon patient request if the prescription is for a schedule II opioid drug. Start Date: 06/05/22 Status: Ordered Medication Dispense Status: Completed Total Allowed Fills: 1 Fills Dispensed: 0 Glucosamine Chondroitin 3 capsule, By Mouth, Daily, 0 Refills, Maintenance, 06/20/18 9:58:11 PM EDT Start Date: 06/20/18 Status: Ordered Medication Dispense Status: Completed Total Allowed Fills: 1 Fills Dispensed: 0 levothyroxine 75 mcg (0.075 mg) oral tablet 1 tablet = 75 mcg, By Mouth, Daily, # 30 tablet, 0 Refills, Maintenance, 08/09/16 10:35:57 AM EDT, Tablet Start Date: 08/09/16 Status: Ordered Medication Dispense Status: Completed Quantity: 30.0 Unit: tablet Total Allowed Fills: 1 Fills Dispensed: 0 Lexapro 5 mg oral tablet 2 tablet = 10 mg, By Mouth, Daily, 0 Refills, Maintenance, 06/05/22 10:11:00 AM EDT, Partial fill upon patient request if the prescription is for a schedule II opioid drug. Start Date: 06/05/22 Status: Ordered Medication Dispense Status: Completed Total Allowed Fills: 1 Fills Dispensed: 0 Lisinopril = 20 mg, By Mouth, Daily, 0 Refills, Maintenance, 06/05/22 10:10:00 AM EDT, Partial fill upon patient request if the prescription is for a schedule II opioid drug. Start Date: 06/05/22 Status: Ordered Medication Dispense Status: Completed Total Allowed Fills: 1 Fills Dispensed: 0 Mestinon See Instructions, 30mg 36x daily, 0 Refills, Maintenance, 08/09/16 10:35:17 AM EDT Start Date: 08/09/16 Status: Ordered Medication Dispense Status: Completed Total Allowed Fills: 1 Fills Dispensed: 0 Multivitamin Daily, 0 Refills, Maintenance, 06/20/18 9:57:52 PM EDT Start Date: 06/20/18 Status: Ordered Medication Dispense Status: Completed Total Allowed Fills: 1 Fills Dispensed: 0 mycophenolate mofetil 500 mg oral tablet TAKE 1 TABLET ORALLY 2 TIMES A DAY FOR 30 DAYS Start Date: 05/27/25 Status: Ordered Medication Dispense Status: Completed Total Allowed Fills: 1 Fills Dispensed: 0 Ozempic Subcutaneous Infusion, 0 Refills, Maintenance, 10/17/23 8:20:00 AM EST, Partial fill upon patient request if the prescription is for a schedule II opioid drug. Start Date: 10/17/23 Status: Ordered Medication Dispense Status: Completed Total Allowed Fills: 1 Fills Dispensed: 0 Probiotic Formula 1 capsule, By Mouth, Daily, 0 Refills, Maintenance, 06/20/18 9:58:00 PM EDT Start Date: 06/20/18 Status: Ordered Medication Dispense Status: Completed Total Allowed Fills: 1 Fills Dispensed: 0 pyridostigmine 60 mg oral tablet 60 mg, 1, tablet, By Mouth, 3 times a day, Refills 0, Maintenance, 07/11/25 11:08:00 AM EDT, Partialfill upon patient request if the prescription is for a schedule II opioid drug. Start Date: 07/11/25 Status: Ordered Medication Dispense Status: Completed Total Allowed Fills: 1 Fills Dispensed: 0 Problem List Condition Confirmation Course Effective Dates Status Health St atus Informant Anxiety Confirmed Active Hypertension Confirmed Active Hypothyroid Confirmed Active MG (myasthenia gravis) Confirmed Active Severe obesity Confirmed Active Vitiligo Confirmed Active Social History Social History Type Response Smoking Status Never (less than 100 in lifetime) entered on: 07/11/25 Sex Sex Representation Female (finding) Note * Ollie Marte: PERFORM Event Display: Patient Education/Instruction Authored Date: [id number] Ambulatory Adult Visit Summary [facility] [place] [facility] [address] [place] [address] Name: TESSA CONWAY : 1980?? Visit: 07/08/2025 13:10?? Ambulatory Visit Instructions ?? Your Care Team Primary Care Provider Angelo Dey MD? This Visit Provider Alexandre Neil MD Vitals Signs Pulse Rate:??99 bpm??High Height: 165 cm Systolic Blood Pressure: 137 mm Hg Weight: 122 kg Diastolic Blood Pressure: 84 mm Hg Body Mass Index:??44.81 kg/m2??Critical Oxygen Saturation: 99 % Body surface area: 2.36 What to do next Scheduled Follow-Up Appointments Friday 11:00 AM EDT ?? With: Dimitrios Guerrier DO Where: [facility] Thoracic Surgery [address] [place] [address] [address] [place] [address]- Status: Pending Friday 9:00 AM EDT ?? With: Miguelangel Velez Where: [facility] Status: Pending 2024 9:00 AM EDT ?? With: Miguelangel Velez Where: [facility] Status: Pending Friday 6:50 PM EDT ?? With: Amaris Camacho CNM Where: [facility] MALT SPECIFICATIONS CONTROL ASSISTANT Non Global [address] [place] [address]- Status: Pending Future Orders Vaginosis Panel - Routine, Vaginal Swab, Once, 07/23/24 9:58:00 EDT, [facility], Vaginal Swab?? Urine Culture - Routine, Once, 07/23/24 9:58:00 EDT, Order for Today, [facility], Urine Clean Catch?? Medications The list below reflects the information in our records and provided by you today along with any changes made during this visit. Please continue your medications until treatment is completed or stopped by your provider. If this is different from the information you have or there are other questions,please contact the prescribing provider. What How Much When Why Instructions Unchanged ascorbic acid/ chondroitin/ glucosa/ deb (Glucosamine Chondroitin) 3 capsule Oral Daily Unchanged bifidobacterium-lactobacillus (Probiotic Formula) 1 capsule Oral Daily Unchanged Durable Medical Equipment (custom right knee patellofemoral support brace) See instructions BMI 45.0-49.9, adult Instability of right knee joint Patellar instability of right knee use daily This brace will provide the patient ambulation independance and prevent falls and injuries ?? Unchanged Escitalopram (escitalopram 10 mg oral tablet) TAKE 1 TABLET BY MOUTH EVERY DAY ?? Unchanged Escitalopram (Lexapro 5 mg oral tablet) 2 tab(s) Oral Daily Unchanged Ferrous Gluconate Oral Daily IRON ?? Unchanged Fluticasone Nasal (Flonase) Daily Unchanged Levothyroxine (levothyroxine 75 mcg (0.075 mg) oral tablet) 1 tab(s) Oral Daily Unchanged Liothyronine (Cytomel 5 mcg oral tablet) 1 tab(s) Oral Twice a day Unchanged Lisinopril 20 Milligram Oral Daily Unchanged Multivitamin Daily Unchanged Mycophenolate Mofetil (mycophenolate mofetil 500 mg oral tablet) TAKE 1 TABLET ORALLY 2 TIMES A DAY FOR 30 DAYS ?? Unchanged Pyridostigmine (Mestinon) See instructions 30mg 36x daily ?? Unchanged semaglutide (Ozempic) Subcutaneous Infusion Medications and Immunizations Administered Medications Given During Visit No medications given during this visit.?? Allergies (NKA means No Known Allergies) Dilaudid Paxil Wheat clindamycin erythromycin oxyCODONE sulfADIAZINE Common Emergency Awareness Tips IS IT A STROKE? Act FAST and Check for these signs: FACE Does the face look uneven? ARM Does one arm drift down? SPEECH Does their speech sound strange? TIME Call at any sign of stroke ?? Heart Attack Signs Chest discomfort: Most heart attacks involve discomfort in the center of the chest and lasts more than a few minutes, or goes away and comes back. It can feel like uncomfortable pressure, squeezing, fullness or pain. Discomfort in upper body: Symptoms can include pain or discomfort in one or both arms, back, neck, jaw or stomach. Shortness of breath: With or without discomfort. Other signs: Breaking out in a cold sweat, nausea, or lightheaded. Remember, MINUTES DO MATTER. If you experience any of these heart attack warning signs, call to get immediate medical attention! ?? Smoking can increase your chances of developing chronic health problems and can cause harmful effects to other family members in your house. If you smoke, you are strongly encouraged to quit. Please call [employer] at [phone] or [phone] ([phone]) or log in to [email or web address] for referrals to smoking cessation programs. ?? The National Suicide Prevention Hotline is available 09/06 if you or someone you know needs to find a reason to keep living. By calling 4-179-127-Gnammo (2006) you'll be connected to a skilled, trained counselor at a crisis center in your area. [facility] Portal You can view and manage your care through the patient portal or by using a health care melissa of your choosing. [employer] is a website that allows you to securely view your medical information including your hospital discharge summary, office visit summaries, medications and follow-up visits. You can also request appointments, renew medications, and request access to your medical information using a health care melissa of your choosing, or just ask a question. You can enroll at [email or web address] or register during your next office visit. [facility], in keeping with [facility] guidance, no longer requires face masks for staff, patientsor visitors in most situations. Similiar to time spent indoors at other locations, there is the chance that you were exposed to repiratory viruses during your time with us (such as flu or COVID-19). If you develop symptoms concerning for a viral respiratory infection, please seek testing (and treatment if indicated) from your medical provider or home test kit. ?? Disclaimer: The information provided is of a general nature and is intended to be used in conjunction with the recommendations and advice of your health care practitioner. Every effort has been made to ensure that the information provided is accurate and complete at the time it is provided to you however, as your needs change, or, as new information becomes available, different or additional instructions may be required. ?? If you have questions, please consult with your primary care provider or pharmacist, as appropriate. This information is not intended to serve as substitution for assessment and evaluation by a qualified health care provider. If you do not have a primary care provider, you may find a [facility] provider by calling [employer] at [phone]. Patient Care team information Care Team Personnel Name: Angelo Dey MD Position: Reference Physician Member Role: PCP Address: [address] [place] [address] Telecom: Care Team Related Persons Name: MARRY LAGUERRE Name: CHRISTOPHE COOLEY Insurance Providers Guarantor name: TESSA [facility] Plan Information #: 1 Payer: [facility] HMO Payer Identifier: PIPER Member Number: [id number] Group Number: [id number] Subscriber Identifier: [id number] Relationship to Subscriber: spouse Coverage Type: Commercial Managed Care - HMO Coverage Verification Date: NA Telecom: NA Address:
--- OUTSIDE RECORDS SUMMARY | 2025-07-17 23:59 | XMS_ITS | Continuity of Care Document ---
Author Organization [facility] Address [address] [place] [address] [address], [address] [place] [address]- Care Team Providers Care Used Building Materials Yard Worker Name Role Phone Angelo Dey MD Primary Care Physician [phone] Encounter [facility] Date(s): 06/17/25 - 07/17/25 [facility] [address] [place] [address] Drive [address] [place], [place] [address] Encounter Type: Triage Allergies, Adverse Reactions, Alerts Substance Criticality Severity [...] on: 07/11/25 Sex Sex Representation Female (finding) Patient Care team information Care Team Personnel Name: Angelo Dey MD Position: Reference Physician Member Role: PCP Address: [address] [place] [address]- Telecom: Care Team Related Persons Name: CARLOTTA, MARRY Name: CHRISTOPHE COOLEY Insurance Providers Guarantor name: TESSA CONWAY [facility] Plan Information #: 1 Payer: [facility] H[facility] Payer Identifier: NA Member Number: [id number] Group Number: [id number] Subscriber Identifier: NA Relationship to Subscriber: spouse Coverage Type: Commercial Managed Care - HMO Coverage Verification Date: NA Telecom: NA Address: NA
--- OUTSIDE RECORDS SUMMARY | 2025-07-18 23:59 | XMS_ITS | Continuity of Care Document ---
Author Organization [facility] Address [address] [place] [address] [address], [address] [place] [address]- Care Team Providers Care Plant Engineering Supervisor Name Role Phone Angelo Dey MD Primary Care Physician [phone] [id number]): [facility] - 07/18/25 [facility] [address] [place] [address] Drive [address] [place], [place] [address] Attending Physician: Dimitrios Guerrier DO Referring Physician: Germaine Driscoll NP Encounter Type: Office Visit Allergies, Adverse Reactions, Alerts Substance Criticality Severity Reaction Reaction Severity Status clindamycin Active erythromycin Active sulfADIAZINE Active Dilaudid Hives Active Paxil Active Wheat Active oxyCODONE Maddie Active Medications custom right knee patellofemoral support [...] Sex Sex Representation Female (finding) Note * Alyson Aquino: PERFORM Event Display: Patient Education/Instruction Authored Date: [id number] Ambulatory Adult Visit Summary [facility] [address] [place], [place] [id number] Name: TESSA CONWAY : 1980?? Visit: 07/11/2025 10:54?? Ambulatory Visit Instructions ?? Your Care Team Primary Care Provider Angelo Dey MD? This Visit Provider Dimitrios Guerrier DO Your Diagnosis Elevated CPK Thymus hyperplasia Vitals Signs Temperature: 98 DegF Height: 165 cm Pulse Rate:??97 bpm??High Weight: 124.2 kg Respiratory Rate: 18 br/min Body Mass Index:??45.62 kg/m2??Critical Systolic Blood Pressure: 112 mm Hg Body surface area: 2.39 Diastolic Blood Pressure: 66 mm Hg ?? Oxygen Saturation: 97 % ?? What to do next Instructions From Your Provider [facility] [address] [place] [address] ?? Dr. Dimitrios Guerrier, DO, FACS?? Dr. Rosi Hernandez MD, FCCP, FACS? Dr. Katherin Martin MD, MPH, FACS? PJ Meza, [facility]- ?? Office Phone #: [phone]? Office Fax #: [phone] ?? 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 You are being sent for the following imaging studies to be done??REAGAN?(you will be called to schedule these studies unless otherwise noted): -??CT chest ?? Our surgical nurse practitioner will call you to schedule the following procedure(s): -??Robotic thymectomy ?? Scheduled Follow-Up Appointments Friday 9:00 AM EDT ?? With: Miguelangel Velez Where: [facility] Status: Pending 2024 9:00 AM EDT ?? With: Miguelangel Velez Where: [facility] Status: Pending Friday 6:50 PM EDT ?? With: Amaris Camacho CNM Where: [facility] INSIDE SALES PERSON Non Global [address] [place] [address]- Status: Pending Follow-Up Appointments Follow Up with??Dimitrios Guerrier DO When:??11/22/2025 04:30 PM EST Where: [address] [place] [facility] [place] [address]- Future Orders CT Chest W/ Contrast, Routine, Reason for Exam: Other:, Operative planning/thymic hyperplasia., IV Contrast Only, REAGAN for operative planning., Once, *Est. 10/19/25 +/- 30 days, Single or Recurring Future Order Vaginosis Panel - Routine, Vaginal Swab, Once, 07/23/24 9:58:00 EDT, [facility], Vaginal Swab?? Urine Culture - Routine, Once, 07/23/24 9:58:00 EDT, Order for Today, [facility], Urine Clean Catch?? BUN - Routine, Once, 07/11/25 11:54:00 EDT, Single or Recurring Future Order, [facility], Blood?? Creatinine - Routine, Once, 07/11/25 11:54:00 EDT, Single or Recurring Future Order, [facility], Blood?? Medications The list below reflects the information [...] See instructions 30mg 36x daily ?? Unchanged Pyridostigmine (pyridostigmine 60 mg oral tablet) 1 tab(s) Oral 3 times a day Unchanged semaglutide (Ozempic) Subcutaneous Infusion Test Performed Below is a partial list of the tests performed during your Visit. You may have had other tests and procedures not included in this list. Please discuss all test results with your provider. BUN?-- Results Pending -- CPK Total Only Creatinine?-- Results Pending -- Lab Test Results Below is a partial list of the most recent Laboratory test results done during your Visit. You may have had other tests and procedures not included in this list. Please discuss all test results with your provider. Test Name Test Result Date/Time CK, Total 72 u/L 06/29/2025 08:54 EDT Medications and Immunizations Administered Medications Given During Visit No medications given during this visit.?? Allergies (NKA means No Known Allergies) Dilaudid??(Hives) Paxil Wheat clindamycin erythromycin oxyCODONE??(Maddie) sulfADIAZINE Common Emergency Awareness Tips IS IT [...] are strongly encouraged to quit. Please call [facility] [employer] at [phone] or [phone] ([phone]) or log in to [email or web address] for referrals to smoking cessation programs. ?? The National Suicide Prevention Hotline is available 09/06 if you or someone you know needs to find a reason to keep living. By calling 2-626-387-[employer] (7952) you'll be connected to a skilled, trained counselor at a crisis center in your area. [facility] Portal You can view and manage your care through the patient portal or by using a health care melissa of your choosing. [employer] is a website that allows you to securely view your medical information including your hospital discharge summary, office visit summaries, medications and follow-up visits. You can also request appointments, renew medications, and request access to your medical information using a health care melissa of your choosing, or just ask a question. You can enroll at [email or web address] or register during your next office visit. [facility], in keeping with [facility] guidance, no longer requires face masks for [...] primary care provider, you may find a [facility] provider by calling [facility] at [phone]. Patient Care team information Care Team Personnel Name: Angelo Dey MD Position: Reference Physician Member Role: PCP Address: [address] [place] [address] Telecom: Care Team Related Persons Name: MARRY LAGUERRE Name: CHRISTOPHE COOLEY Insurance Providers Guarantor name: TESSA CONWAY [facility] Information #: 1 Payer: [facility] H[facility] Payer Identifier: PIPER Member Number: [id number] Group Number: [id number] Subscriber Identifier: [id number] Relationship to Subscriber: spouse Coverage Type: Commercial Managed Care - HMO Coverage Verification Date: Telecom: NA Address:
--- OUTSIDE RECORDS SUMMARY | 2025-07-20 14:47 | XMS_ITS | Clinical Summary ---
Author Organization [facility] Address [address] [facility] [address] [place] [address] Phone Care Team Providers Care Wrapper Hand Name Role Phone Angelo Dey MD Primary Care Provider Allergies Active Allergy Reactions Criticality Noted Date Comments Clindamycin Hcl Rash Low 06/15/2025 Erythromycin Asthenia High 06/15/2025 Hydromorphone Hives 06/15/2025 Oxycodone Feeling Irritable Low 06/15/2025 Paroxetine Hcl 06/15/2025 Sulfa (Sulfonamide Antibiotics) 05/19 Medications lisinopril (PRINIVIL,ZESTRI L) 20 MG tablet Take 1 tablet by mouth every morning. 04/26/2025 Active liothyronine (CYTOMEL) 5 MCG tablet Take 1 tablet by mouth 2 (two) times a day. 06/06/2025 Active levothyroxine (SYNTHROID, LEVOTHROID) 75 MCG tablet Take 75 mcg by mouth every morning. 03/29/2025 Active mycophenolate mofetil (CELLCEPT) 500 mg tablet Take 1 tablet by mouth 2 (two) times a day. 05/28/2025 Active escitalopram oxalate (LEXAPRO) 10 MG tablet Take 1 tablet by mouth every morning. 06/06/2025 Active pyRIDostigmine (MESTINON) 60 mg tablet Take 30 mg by mouth. 05/22/2025 Active pyRIDostigmine (MESTINON) 180 mg CR tablet Take 180 mg by mouth daily. 05/13/2025 Active docosahexaenoic acid/epa (FISH OIL ORAL) Take by mouth. Active glucosamine sulfate (GLUCOSAMINE ORAL) Take by mouth. Active Lactobacillus acidophilus (PROBIOTIC ORAL) Take by mouth. Active MULTIVITAMIN ORAL Take by mouth. Active cholecalciferol, vitamin D3, (VITAMIN D3 ORAL) Take by mouth. Active Encounters Date Type Department Care Team Description 06/21/2025 8:15 AM EDT - 06/21/2025 8:30 AM EDT Surgery [facility] Endoscopy Admitting Dept Virtual Department [address] [place] [id number] Toni Montague MD COLONOSCOPY 06/21/2025 8:09 AM EDT Anesthesia Event [facility] Admitting Dept Virtual Department [address] [place] [phone] Ezio Mercer Jr., DO 06/21/2025 6:55 AM EDT - 06/21/2025 9:12 AM EDT Hospital Encounter [facility] Admitting Dept Virtual Department [address] [place] [phone] Toni Montague MD Discharge Disposition: Home or Self Care 06/21/2025 Procedure Pass [facility] Endoscopy Admitting Dept Virtual Department [address] [place] [phone] 06/15/2025 3:00 PM EDT Pre-Admission Testing Pre Procedure Evaluation [address] [place] [phone] Toni Montague MD from Last 3 Months Social History Tobacco Use Types Packs/Day Years Used Date Smoking Tobacco: Never Smokeless Tobacco: Never Tobacco Cessation:Counseling Given: Not Answered Alcohol Use Standard Drinks/Week Comments Not Currently [...] on file Sexual Orientation Not on file Last Filed Vital Signs Vital Sign Reading Time Taken Comments Blood Pressure 120/68 06/21/2025 8:38 AM EDT Pulse 78 06/21/2025 8:38 AM EDT Temperature 35.8 C (96.4 F) 06/21/2025 8:28 AM EDT Respiratory Rate 25 06/21/2025 8:38 AM EDT Oxygen Saturation 98% 06/21/2025 8:38 AM EDT Inhaled Oxygen Concentration - - Weight 127 kg (280 lb) 06/15/2025 3:19 PM EDT Height 157.5 cm (5' 2 ) 06/15/2025 3:19 PM EDT Body Mass Index 51.21 06/15/2025 3:19 PM EDT Plan of Treatment Health Maintenance Due Date Last Done Comments CREATININE LEVEL 1979 LIPID PANEL 1979 POTASSIUM LEVEL 1979 TSH LEVEL 1979 DEPRESSION SCREENING 1991 HEPATITIS C SCREENING 1997 HIV ONE-TIME SCREENING (18-65 YEARS) 1997 PNEUMOCOCCAL VACCINES (0-49 years) (1 of 2 - PCV) 1998 PAP SMEAR 2000 SCREENING FOR DIABETES 2014 COLOGUARD 2024 FIT TEST 2024 FOBT 2024 SIGMOIDOSCOPY 2024 VIRTUAL COLONOSCOPY 2024 COVID-19 VACCINE (9 - Pfizer risk season) 2025 08/15/2024, 09/25/2023, 08/23/2022, Additional history exists MAMMOGRAM 12/22/2025 12/22/2023, 02/0 01/2023, 12/05/2021 Adult Td,Tdap Booster 04/05/2029 04/05/2019, 009 COLONOSCOPY 06/21/2035 06/21/2025 COLORECTAL CANCER SCREENING 06/21/2035 SMOKING STATUS SCREENING (Once After 26 Yrs) Completed 06/15/2025 HEPATITIS A VACCINES Aged Out No long er eligible based on patient's age to complete this topic HIB VACCINES Aged Out No longer eligi ble based on patient's age to complete this topic MENINGOCOCCAL VACCINES (ACWY) Aged Out No longer eligible based on patient's age to complete this topic MENINGOCOCCAL VACCINES (B) Aged Out N o longer eligible based on patient's age to complete this topic Medical Devices Not on file Procedures Procedure Name Priority Date/Time Associated Diagnosis Comments AR COLSC FLX W/RMVL OF TUMOR POLYP LESION SNARE TQ 06/21/2025 8:10 AM EDT colon Special Needs CHRIS/CPAP AR COLONOSCOPY W/BIOPSY SINGLE/MULTIPLE 06/21/2025 8:10 AM EDT colon Special Needs CHRIS/CPAP AR COLONOSCOPY FLX DX W/COLLJ SPEC WHEN PFRMD 06/21/2025 8:10 AM EDT colon Special Needs CHRIS/CPAP ENDOSCOPY, COLON 06/21/2025 8:08 AM EDT ANATOMIC PATHOLOGY Routine 06/21/2025 12 :00 AM EDT from Last 3 Months Results * ENDOSCOPY, COLON (06/21/2025 8:08 AM EDT) Narrative Transcriptions Toni Montague MD - 06/21/2025 8:08 AM EDT [facility] Patient Name: Joanna Conway Attending MD:: TONI MONTAGUE MD, Procedure Date: 06/21/2025 8:08 AM Date of : 1980 Age: 45 Admit Type: Outpatient Gender: Female Room: [facility] Referring MD: Angelo Dey MD Exam Type: Colonoscopy Indications: Screening for colorectal malignant neoplasm, Thisis the patient's first colonoscopy Medications: Monitored Anesthesia Care Procedure: Informed consent was obtained from the patientafter discussion of the indications, limitations, alternatives, benefits, and risks of the procedure. Risks specifically discussed include but are not limited to medication reactions, missed lesions, bleeding, perforation, or the need for emergent surgery. Throughout the procedure, the patient's blood pressure, pulse, end-tidal CO2, and oxygensaturations were monitored continuously. The Colonoscope was introduced through the anus and advanced to the cecum, identified by theappendiceal orifice, ileocecal valve and palpation. The colonoscopy was performed without difficulty. The patient tolerated the procedure well. The qualityof the bowel preparation was evaluated using the BBPS ([place] Bowel Preparation Scale) with scores of:Right Colon = 3, Transverse Colon = 3 and Left Colon = 3 (entire mucosa seen well with no residual staining, small fragments of stool or opaque liquid). Thetotal BBPS score equals 9. The ileocecal valve,appendiceal orifice, and rectum were photographed. Complications: No immediate complications. Estimated blood loss: Minimal. Findings: The perianal and digital rectal examinations were normal. Pertinent negatives include normalsphincter tone. A 15 mm polyp was found in the mid rectum at 15 cm proximal to the anus. The polyp wassemi-pedunculated. The polyp was removed with a hot snare. Resectionand retrieval were complete. Estimated blood loss was minimal. There was evidence of a prior bbd-dd-ggmporu-colonic anastomosis in the sigmoid colon. This was patentand was characterized by healthy appearing mucosa. The anastomosis was traversed. Many small and large-mouthed diverticula were foundin the descending colon, splenic flexure andtransverse colon. There was no evidence of diverticularbleeding. Retroflexion in the right colon was performed. Non-bleeding internal hemorrhoids were found during retroflexion. The hemorrhoids were small. The exam was otherwise without abnormality ondirect and retroflexion views. Impression: - One 15 mm polyp in the mid rectum at 15 cmproximal to the anus, removed with a hot snare. Resected and retrieved. - Patent end-to-end colo-colonic anastomosis, characterized by healthy appearing mucosa. - Moderate diverticulosis in the descending colon,at the splenic flexure and in the transverse colon.There was no evidence of diverticular bleeding. - Non-bleeding internal hemorrhoids. - The examination was otherwise normal on directand retroflexion views. Recommendation: - I will send results of your biopsy to you and your referringphysician or provider. If you do not receive notification within 3 weeks,please call our office. - No aspirin, ibuprofen, naproxen, or other non-steroidal anti-inflammatory drugs for 10 days after polyp removal. - Repeat colonoscopy in 3 years for surveillance based on pathology results. TONI MONTAGUE MD 06/21/2025 8:30:23 AM This report has been signed electronically. Number of Addenda: 0 Note Initiated On: 06/21/2025 8:08 AM Procedure Code(s): --- Professional --- 72194, Colonoscopy, flexible; with removal of tumor(s), polyp(s), or other lesion(s) by snare technique --- Technical --- 44860, Colonoscopy, flexible; with removal of tumor(s), polyp(s), or other lesion(s) by snare technique Diagnosis Code(s): --- Professional --- Z12.11, Encounter for screening for malignantneoplasm of colon D12.5, Benign neoplasm of sigmoid colon Z98.0, Intestinal bypass and anastomosis status K64.8, Other hemorrhoids K57.30, Diverticulosis of large intestine without perforation or abscess without bleeding --- Technical --- Z12.11, Encounter for screening for malignantneoplasm of colon D12.5, Benign neoplasm of sigmoid colon Z98.0, Intestinal bypass and anastomosis status K64.8, Other hemorrhoids K57.30, Diverticulosis of large intestine without perforation or abscess without bleeding CPT copyright 2021 [employer]. All rights reserved. The codes documented in this report are preliminary and upon industrial gas fitter reviewmay be revised to meet current compliance requirements. Procedure Date: 06/21/2025 8:08:[address] [place] [id number] us Angelo Dey MD GI PROCEDURE ORDERABLE S Final Result * Anatomic Pathology (06/21/2025 12:00 AM EDT) 06/21/2025 06/21/2025 10: 41 AM EDT Narrative SEE NARRATIVE - 06/22/2025 2:51 PM EDT [address] [address] Integrated Logistics Programs Director: Sanju Dominguez MD Surgical Pathology Report FINAL PATHOLOGIC DIAGNOSIS: RECTUM AT 15CM, POLYP, HOT SNARE REMOVAL: Tubulovillous adenoma. Electronically Signed Out By Meryl Espino MD By his/her signature above, the pathologist listed as making the Final Diagnosis certifies that he/she has personally reviewed this case and confirmed or corrected the diagnosis. CLINICAL HISTORY Screening for colorectal malignant neoplasm, this is the patient's first colonoscopy SPECIMENS SUBMITTED: A: RECTUM AT 15CM, POLYP GROSS DESCRIPTION RECTUM AT 15CM, POLYP: Formalin: Is a 1.3 x 1.1 x 0.8 cm polyp with an identifiable stalk. It is cross-sectioned and entirely submitted A1. DN 06/21/2025 Grossing Staff: [facility] Patient Name: JOANNA CONWAY : 1980 (Age: 45) Sex: F Institution: [facility] Date of Operation: 06/21/2025 Date of Reported: 06/22/2025 14:51 Results To: Toni Dey MD us Toni Montague MD PATHOLOGY ORDERABLES Final Res ult SEE NARRATIVE from Last 3 Months Insurance Member Subscriber Plan / Payer (Ef fective 2022-Present) Name:Joanna Conway Relation to Subscriber:Self Name:Joanna Conway Payer ID:Not on file Type:HMO Address: [place] [id number] Member Subscriber Plan / Payer (Ef fective 2022-Present) Name:Joanna Conway Relation to Subscriber:Self Name:Joanna Conway Payer ID:Not on file Type:O Address: [place] [id number] Care Teams Wrapper Hand Relationship Specialty Start Date End Date Angelo Dey MD [address] [place] [address] PCP - General Internal Medicine 06/21/25 Additional Source Comments The information contained in this document represents components of the legal health record. It is not the complete legal health record.[facility]
--- OUTSIDE RECORDS SUMMARY | 2025-07-20 14:47 | XMS_ITS | Encounter Summary ---
Author Organization [facility] Address [address] [place] [address] Phone Care Team Providers Care Venetian Blind Machine Operator Name Role Phone Angelo Dey MD Primary Care Provider Encounter Details Date Type Department Care Team (Late st Contact Info) Description 06/21/2025 Procedure Pass [facility] Endoscopy Admitting Dept Virtual Department [address] [place] [address] Social History Tobacco Use Types Packs/Day Years [...] 7:14 AM EDT Francy Perera RN * [place] Suicide Severity Rating Scale (Screener/Recent Self-Report) Question [...] on filedocumented in this encounter Care Teams Venetian Blind Machine Operator Relationship Specialty Start Date End Date Angelo Dey MD [address] [place] [address] PCP - General Internal Medicine 06/21/25 documented as of this encounter Additional Source Comments The information contained in this document represents components of the legal health record. It is not the complete legal health record.[facility]
--- NOTE | 2025-07-28 15:31 | HO.ANESPROP2 ---
Documented by User: Landy Parmar NP 07/28/25 15:33 HPI - Anesthesia Eval Consult details Narrative: 45yo F for Upper Endoscopy Myesthenia on pyridostigmine BMI 52 PMFSH Active Problems Active Problems: All Active Problems Hypothyroidism (Acute) Anxiety (Acute) Hypertension (Acute) Morbid obesity (Acute) HLD (hyperlipidemia) (Acute) Thymus hyperplasia (Acute) Nocturnal hypoxemia (Acute) Impaired mobility and ADLs (Acute) Weight gain (Acute) Mild obstructive sleep apnea (Acute) Weakness (Acute) IBS (irritable bowel syndrome) (Acute) Diplopia (Acute) Myasthenia gravis (Acute) Past Medical History Medical History (Updated 07/15/25 @ 08:47 by Ted Quinones MD) History of open sigmoidectomy Anxiety Hypertension Morbid obesity COVID-19 virus infection Depression Hypothyroidism Family History Family History Mother Diabetes HTN (hypertension) Hyperlipidemia Glaucoma Father Diabetes HTN (hypertension) Hyperlipidemia Skin cancer Primary vitiligo Hx of Minh thyroiditis Surgical History Surgical History Hx of cholecystectomy Social History Social History Are you a primary regular senior care provider to a significant other at home: No Do you presently have visiting nurse or other home services: No Alcohol intake: current Alcohol intake frequency: a few times a week Patient Tobacco Use Status: Never used Tobacco Have you been hit, kicked, punched, or otherwise hurt by someone within the past year? If so, by whom?: No Are you DNR?: No Advance Directives: No Advance Directives Information Provided: Yes FDLMP: 60 days ago Poor oral hygiene: No Meds Allergies Allergy/AdvReac Type Severity Reaction Status Date / Time hydromorphone (From Dilaudid) Allergy Severe Hives Verified 07/15/25 08:25 sulfamethoxazole (From Allergy Severe Rash Verified 07/15/25 08:25 Bactrim) trimethoprim (From Bactrim) Allergy Severe Rash Verified 07/15/25 08:25 clindamycin Allergy Intermediate Rash Verified 07/15/25 08:25 acetaminophen (From Percocet) Allergy Mild axitation Verified 07/15/25 08:25 erythromycin base Allergy Mild mg flare Verified 07/15/25 08:25 oxycodone (From Percocet) Allergy Mild axitation Verified 07/15/25 08:25 Home Medications ?Medication ?Instructions ?Recorded ?Confirmed ?Last Taken ?Type levothyroxine 75 mcg capsule 75 mcg PO DAILY 02/07/22 07/15/25 Unknown History liothyronine 5 mcg tablet (Cytomel) 5 mcg PO BID 02/07/22 07/15/25 Unknown History lisinopril 20 mg tablet 20 mg PO DAILY 02/07/22 07/15/25 Unknown History ketoconazole 2 % topical cream appl topical DAILY 11/29/22 07/15/25 Unknown History mometasone 0.1 % topical cream appl topical DAILY 11/29/22 07/15/25 Unknown History cholecalciferol (vitamin D3) 50 50 mcg PO DAILY 06/06/25 07/15/25 Unknown History mcg (2,000 unit) tablet escitalopram oxalate 10 mg tablet 10 mg PO DAILY 06/06/25 07/15/25 Unknown History (Lexapro) multivitamin 1 tab PO DAILY 06/06/25 07/15/25 Unknown History omega 1-gwm-tqb-fish oil 1,200 mg cap PO 06/06/25 07/15/25 Unknown History (144 mg-216 mg) capsule (Fish Oil) probiotic PO 06/06/25 07/15/25 Unknown History Assessment and Plan Assessment Anesthesia Assessment: Chart Reviewed Documented by User: Amada Vargas MD 08/01/25 07:40 [facility] Past Medical History Medical History (Updated 07/15/25 @ 08:47 by Ted Quinones MD) History of open sigmoidectomy Anxiety Hypertension Morbid obesity COVID-19 virus infection Depression Hypothyroidism Family History Family History Mother Diabetes HTN (hypertension) Hyperlipidemia Glaucoma Father Diabetes HTN (hypertension) Hyperlipidemia Skin cancer Primary vitiligo Hx of Minh thyroiditis Family history of problems with anesthesia: No Surgical History Surgical History Hx of cholecystectomy History of Problems with Anesthesia: No Social History Social History Are you a primary regular senior care provider to a significant other at home: No Do you presently have visiting nurse or other home services: No Alcohol intake: current Alcohol intake frequency: a few times a week Patient Tobacco Use Status: Never used Tobacco Have you been hit, kicked, punched, or otherwise hurt by someone within the past year? If so, by whom?: No Are you DNR?: No Advance Directives: No Advance Directives Information Provided: Yes FDLMP: 60 days ago Poor oral hygiene: No Meds Allergies Allergy/AdvReac Type Severity Reaction Status Date / Time hydromorphone (From Dilaudid) Allergy Severe Hives Verified 07/15/25 08:25 sulfamethoxazole (From Allergy Severe Rash Verified 07/15/25 08:25 Bactrim) trimethoprim (From Bactrim) Allergy Severe Rash Verified 07/15/25 08:25 clindamycin Allergy Intermediate Rash Verified 07/15/25 08:25 acetaminophen (From Percocet) Allergy Mild axitation Verified 07/15/25 08:25 erythromycin base Allergy Mild mg flare Verified 07/15/25 08:25 oxycodone (From Percocet) Allergy Mild axitation Verified 07/15/25 08:25 Home Medications ?Medication ?Instructions ?Recorded ?Confirmed ?Last Taken ?Type levothyroxine 75 mcg capsule 75 mcg PO DAILY 02/07/22 07/15/25 Unknown History liothyronine 5 mcg tablet (Cytomel) 5 mcg PO BID 02/07/22 07/15/25 Unknown History lisinopril 20 mg tablet 20 mg PO DAILY 02/07/22 07/15/25 Unknown History ketoconazole 2 % topical cream appl topical DAILY 11/29/22 07/15/25 Unknown History mometasone 0.1 % topical cream appl topical DAILY 11/29/22 07/15/25 Unknown History cholecalciferol (vitamin D3) 50 50 mcg PO DAILY 06/06/25 07/15/25 Unknown History mcg (2,000 unit) tablet escitalopram oxalate 10 mg tablet 10 mg PO DAILY 06/06/25 07/15/25 Unknown History (Lexapro) multivitamin 1 tab PO DAILY 06/06/25 07/15/25 Unknown History omega 9-gle-bux-fish oil 1,200 mg cap PO 06/06/25 07/15/25 Unknown History (144 mg-216 mg) capsule (Fish Oil) probiotic PO 06/06/25 07/15/25 Unknown History Exam Airway Mallampati Class: III TM Dist: >3cm Neck ROM: Full Heart: rrr Lungs: cta Assessment and Plan Assessment Anesthesia Assessment: Anesthesia Plan Discussed Final Anesthetic Review Family History of Problems with Anesthesia: No History of Problems with Anesthesia: No NPO: Yes ASA Class: III Final Preanesthetic Review: No Changes in Pt Med Stat, Meds/Allgs Chart Reviewed and Consent Obtained/Reviewed Patient Risk: Intermediate Procedure Risk: Intermediate Anesthetic Plan Anesthetic Plan: MAC: Disposition: Standard PACU
[2025-08-01] MEDS: Lactated Ringers 1,000 ML 100 ML IVCONT (07:26)
[2025-08-01 07:42] LABS: UPreg QC Valid YES
[2025-08-01 07:46] VITALS: BP 140/77; PULSE 85; RESP 18; TEMP 36.7; O2SAT 96
--- NOTE | 2025-08-01 07:58 | P.HPSUR_ITS ---
Pre-Procedural Eval Section A - 24 Hr Update-Section A only Date of Service: 08/01/25 The patient is an INPATIENT: No The patient has been examined within 24 hours of the surgical procedure. The History & Physical has been completed within 30 days and I have reviewed it.: Yes Section B - Complete if H&P > 30 days Chief Complaint: Morbid (severe) obesity due to excess calories Relevant Family History (Specify if Yes): No Relevant Social History: None Present Medications: None Medical History: No relevant PMH History of Previous Operations: No relevant previous surgery Allergies: Allergies Allergy/AdvReac Type Severity Reaction Status Date / Time hydromorphone (From Dilaudid) Allergy Severe Hives Verified 08/01/25 07:48 sulfamethoxazole (From Allergy Severe Rash Verified 08/01/25 07:48 Bactrim) trimethoprim (From Bactrim) Allergy Severe Rash Verified 08/01/25 07:48 clindamycin Allergy Intermediate Rash Verified 08/01/25 07:48 acetaminophen (From Percocet) Allergy Mild axitation Verified 08/01/25 07:48 erythromycin base Allergy Mild mg flare Verified 08/01/25 07:48 oxycodone (From Percocet) Allergy Mild axitation Verified 08/01/25 07:48 Review of Systems Sugical H&P ROS: Negative: Constitution, Cardiovascular, Respiratory, Neurological, Psychiatric, Hem-Onc, Allergic/Immunologic, Gastrointestinal, Genitourinary, Musculoskeletal, Integumentary, Endocrine and Eyes/Ears/Nose/Thr oat Exam Surgical H&P Exam: Normal: HEENT, Normal: Heart, Normal: Lungs, Normal: Extremities, Normal: Abdomen, Normal: Skin and Normal: Neurological Plan Diagnosis/Plan: Unchanged ( EGD to assess the stomach's anatomy. Risks of bleeding and perforation were discussed with the patient and she is in agreement with the plan.) I have reviewed the history and physical and performed a pertinent physical examination on my patient. No changes have occurred unless specified. Time Spent With Patient Time: Total time managing care of this patient today ____ minutes.
--- NOTE | 2025-08-01 07:59 | P.BOP_ITS ---
Brief Operative Note Date of Service: 08/01/25 Pre-op diagnosis: Morbid obesity Post-op diagnosis: same (& small hiatal hernia) Procedure: PROCEDURE DATE: 08/01/2025 PREOPERATIVE DIAGNOSIS: Morbid obesity POSTOPERATIVE DIAGNOSIS: ?Same as above. 3cm diaphragmatic hernia reducible PROCEDURE: [id number] with biopsies Surgeon: ?Cipriano Quinones M.D.. Ph.D. De Ionizer Operator: None ? Anesthesia: IV sedation Estimated blood loss: ?Minimal FINDINGS AND PROCEDURE: ? OPERATIVE INDICATIONS: ?The patient is a 45 year old female known to me who is interested in bariatric surgery. Based on this information I recommended an upper endoscopy to evaluate the patient's symptoms. Risks and complications of the surgery were discussed with the patient in advance particularly the possibility of perforation or bleeding that may require surgical intervention. The patient understood the risks and was in agreement with the plan. ? PROCEDURE: After informed consent was obtained by the patient, the patient was ?transferred to the Operating Room and was placed in the supine position.? After successful induction of IV sedation, a mouth block was inserted and the patient was placed in the left lateral decubitus position. An upper endoscopy was performed next, the oropharynx and esophagus appeared within the normal limits. There was a 3cm reducible hiatal hernia. The z-line was smooth. Two biopsies were obtained from the distal esophagus 2-3 cm proximal to the GE junction and two additional biopsies from the GE junction. The stomach was entered and it appeared to be of normal size. There was no gastritis. There was no stricture or ulcer. A biopsy was obtained from the gastric fundus and the antrum. No significant bleeding was noted from any of the biopsy sites. The scope was then advanced into the duodenum which appeared to be normal as well. retroflexion of the scope confirmed the presence of a small diaphragmatic hernia. At that point the duodenum ?and the stomach were decompressed and the scope was withdrawn from the patient's mouth. The patient extubated and was transferred in stable condition to the Recovery Room for further care. I was present and performed all steps of the procedure. There were no residents to assist with this case. Cipriano Quinones M.D., Ph.D. Surgeon: Ted Quinones MD Anesthesia: MAC Was an De Ionizer Operator used for this Procedure?: No Estimated blood loss (mL): 0 IV fluids (mL): 400 Urine output (mL): 0 (No Cage to record output) Pathology: other (1) antrum x1, 2) fundus x1, 3) GE junction x2, 4) distal esophagus x2) Condition: stable Disposition: PACU
[2025-08-01 08:27] VITALS: BP 116/72; PULSE 78; RESP 16; TEMP 36.4; O2SAT 94
[2025-08-01 08:42] VITALS: BP 121/68; PULSE 71; RESP 18; TEMP 36.1; O2SAT 94
== END 2025-08-01 08:58 | disposition home or self-care (01) ==
PROVIDERS: Nurse Practitioner; PCP Pediatrics; Visit Provider Surgery
PROC: 0DJ08ZZ Inspection of Upper Intestinal Tract, Via Natural or Artificial Opening Endoscopic (ICD-10-PCS; CPT 43235; principal; 2025-08-01 08:50)
DX: E66.01 Morbid (severe) obesity due to excess calories (principal); Z68.43 Body mass index [BMI] 50.0-59.9, adult; K44.9 Diaphragmatic hernia without obstruction or gangrene; I10 Essential (primary) hypertension; E78.5 Hyperlipidemia, unspecified; E03.9 Hypothyroidism, unspecified; F41.9 Anxiety disorder, unspecified; Z79.899 Other long term (current) drug therapy; Z88.1 Allergy status to other antibiotic agents; Z88.2 Allergy status to sulfonamides; Z88.5 Allergy status to narcotic agent; Z90.49 Acquired absence of other specified parts of digestive tract
CPT/HCPCS: 43239; 81025; 88305; 88342; J2003; J2704

== ENCOUNTER → 2025-08-01 07:15 | Outpatient (BNV) | payer OTHER, SELFPAY | PROVIDERS: PCP Pediatrics; Visit Provider Surgery | DX: E66.01 Morbid (severe) obesity due to excess calories (principal); Z68.43 Body mass index [BMI] 50.0-59.9, adult; K44.9 Diaphragmatic hernia without obstruction or gangrene | CPT/HCPCS: 43239 ==

== ENCOUNTER 2025-08-02 07:01 | Outpatient (RCR) | payer OTHER, SELFPAY ==
--- NOTE | 2025-05-03 13:24 | MHC.OT.EP ---
[address] [phone] Occupational Therapy Plan of Care Patient Name: Joanna Elise Date of Evaluation: 05/03/25 Diagnosis: Myasthenia gravis Pain Location: Pain in low back/hips/knees Current: 5-04/26 Basline: 01/24 Pain Score: 6 Aggravating Factors: Humidity/heat for MG pain and weakness Movement/excessive muscle use and stress exacerbates weakness Alleviating Factors: Rest Assessment: Pt is a 45 y/o female referred to OT for myasthenia gravis as it is impacting her ADL's/IADL's and she is experiencing worsening balance/strength/endurance. Pt was diagnosed ~10 years ago, also had 2 bouts of Lyme disease. She reports she was doing PT, and recently diagnosed with lipedema and referred to vascular. She was diagnosed with BLE harjinder insufficiency and has undergone BLE vein procedures. Currently pt is ambulating with straight cane, although by the afternoon she is unable to walk long distances. Her mobility is limited due to weakness, heaviness in all extremities, pain in back and B knees. She reports poor proprioception, frequently bumping into things and losing her balance. On assessment, pt presents with convergence insufficiency, likely causing double vision and impacting balance. She notes she is currently only able to tolerate standing for approx 3 min before experiencing fatigue and instability. She has discontinued driving due to concerns of poor UE motor control and visual disturbances. Pt would benefit from skilled OT to address noted barriers and maximize functional IND. Frequency and Duration: The patient will be seen 2x/wk for 6 weeks Short Term Goals: Pt will complete seated meal prep using EC/WS strategies Improve standing tolerance to >6 min during simulated IADL task IND with pencil push-ups and gaze stabilization exercises Kayaking Instructor Goals: Improve stand tolerance >10 min with use of pacing strategies IND complete 3 household mgt tasks with modified technique for endurance and safety Demo IND use of strategies to manage visual symptoms Demo IND with breathing strategies to recover from fatigue during daily tasks Treatment Plan: Therapeutic Exercise Therapeutic Activity Home Exercise Program Neuro Re-ed Patient Education ADL Training Electronically Signed By: Meryl Carroll MS OTR/L Please Sign and return to therapist. Thank you once again for your referral.
--- NOTE | 2025-08-02 08:54 | MHC.OT.DC ---
[facility] Office [address] [phone] F: [phone] F: [phone] Occupational Therapy Discharge Note Patient Name: Joanna Elise Provider: Germaine Driscoll Diagnosis: Myasthenia gravis Date of Evaluation: 05/03/25 Date of Discharge: 08/02/25 Treatments to Date: 13 Discharge Status: Achieved Goals Improved Function Independent with HEP Discharge Summary: Joanna has has demonstrated significant improvement in managing symptoms of myasthenia gravis and has achieved independence in gilbert functional areas. She now tolerates standing activities for greater than 10 minutes using effective pacing strategies and has successfully integrated energy conservation techniques into daily routines. She is scheduled for upcoming thymectomy surgery next week. At this time, Joanna is independent in symptom management and has developed a comprehensive toolbox of strategies for nervous system regulation and visual exercises and is IND with HEP. Thank you for this referral! Electronically Signed By: Meryl Carroll MS OTR/L Reviewed/agree with student documentation: Therapist: Please Sign and return to therapist, thank you for your referral.
== END 2025-08-02 10:39 | disposition home or self-care (01) ==
LOC: HO.OTS 07:01
PROVIDERS: Visit Provider Nurse Practitioner Family
DX: R53.1 Weakness (principal); G70.00 Myasthenia gravis without (acute) exacerbation; Z74.09 Other reduced mobility
CPT/HCPCS: 97110; 97112; 97165; 97530

== ENCOUNTER 2025-08-25 10:46 | Outpatient (AMB) | payer OTHER, SELFPAY ==
--- NOTE | 2025-08-25 10:00 | MHC.WMTHER ---
Intake Intake Visit Reasons: VIDEO BH Intake Part 2 Allergies hydromorphone (From Dilaudid) Allergy (Severe, Verified 08/01/25 07:48) Hives sulfamethoxazole (From Bactrim) Allergy (Severe, Verified 08/01/25 07:48) Rash trimethoprim (From Bactrim) Allergy (Severe, Verified 08/01/25 07:48) Rash clindamycin Allergy (Intermediate, Verified 08/01/25 07:48) Rash acetaminophen (From Percocet) Allergy (Mild, Verified 08/01/25 07:48) axitation erythromycin base Allergy (Mild, Verified 08/01/25 07:48) mg flare oxycodone (From Percocet) Allergy (Mild, Verified 08/01/25 07:48) axitation PFSH Medical History History of open sigmoidectomy Anxiety Hypertension Morbid obesity COVID-19 virus infection Depression Hypothyroidism Surgical History Hx of cholecystectomy Family History Mother Diabetes HTN (hypertension) Hyperlipidemia Glaucoma Father Diabetes HTN (hypertension) Hyperlipidemia Skin cancer Primary vitiligo Hx of Minh thyroiditis Social History Are you a primary wild animal caretaker to a significant other at home: No Do you presently have visiting nurse or other home services: No Alcohol intake: current Alcohol intake frequency: a few times a week Patient Tobacco Use Status: Never used Tobacco Behavioral Health Assessment Weight Management Therapy Therapy Notes Details The patient is a 45-year-old female presenting for a second visit to continue behavioral health assessment as part of the surgical weight loss program. She reports that both her primary care provider and neurologist have recommended bariatric surgery due to persistent difficulty losing weight, despite trials of Ozempic, Zepbound, and ongoing nutritional counseling. She carries a neuromuscular diagnosis, and excess weight is significantly impacting her daily functioning. The patient notes a lifelong struggle with weight, with an approximate 100 lb gain since the onset of the COVID-19 pandemic and perimenopause. Presenting Concerns Referral Source WMP-Provider. Reason for referral Completion of behavioral health assessment as part of process for weight-loss surgery. Precipitating Event Obesity. Living Situation Current Living Situation Own At risk of losing current housing? No Satisfied with current living situation? Yes Comments PT lives with his , 3 children, co-parents (2 dads) and one of the dad's mom. Also 4 cats and 1 dog. Food/Weight/Diet Expectations of change PT started the program on 07/15/2025 at 273Lbs and the initial goal to lose 10% of your weight before surgery, which is about 27lbs. Ultimate weight goal: 245lbs before surgery Recent weight as of today 08/25, was 262Lbs. PT is implementing the following: Current meal plan: 2 shakes, 2 bars and 1 meal (8FT/8FT) Exercise plan: Walking. Scale: yes Communication with provider: . History/Relationship with food PT reports her issues have been related to overeating when she eats, consuming heavy daily products, drinking alcohol on a daily basis with dinner. Dinner was a big daily event at home and would eat our 3-4 days at week. Example of meals before starting the program: Breakfast: Skip Lunch: @1pm - a Salad or a sandwich Dinner: @5-7pm - home-made dinner, a big dinner or out as date night . Always bread, a carb like pasta/potatoes, protein like chicken/fish, and vegetables. With a cocktail and appetizers, also. PT was eating out 3-4 times a week Snacks: Fruit, nuts, cheese, and crackers. Drinks/Liquids: coffee: 1-2 cups a day without sugar. Tea: none. Juice: none. Soda: occasionally, 2 x week. energy drinks: none. Alcohol: 1-2 mixed drinks, wine, or beer a day, mostly at dinner. History/Relationship with weight PT reports she has always been overweight, but the majority of weight gain started in perimenopause. In the last 10 years, the patient's Lowest weight was 175Lbs and the highest 290Lbs History/Relationship with dieting Intermittent fasting, WW at age 9 for the first time and a current member, she attends monthly WW meetings, she feels these are helpful for mindset. Different self-diets. GLP-1 did Zepbound last year june 2024- May 2025, lost about 17 Lbs. Ozempic April 2023- April 2024 for about 1 year, didn't lose weight but her blood sugar was better. Binge Eating Do you frequently eat large amounts of food in short periods of time, not feeling physically hungry? Yes Do you feel out of control when you eat a large amount of food in a short period of time? No Do you eat large amounts of food rapidly and typically alone? No Night Eating Do you wake up at least once during the night to eat? No If you wake up in the night, do you find that it is necessary to eat something in order to fall back asleep? No Do you have little or no appetite in the morning and feel very hungry in the evening, often overeating between dinner and when you go to bed? Yes Social History Family history and relationship The patient has been with her for 25 years and for 21 years. Although they are no longer romantically involved, they maintain a strong partnership and are in a polyamorous relationship with a male partner who has lived with them for the past 10 years. They have three children, all carried by her . The children?s biological father, who is not romantically involved with the adults, resides with the family on the third floor. Both of the patient?s parents are alive, and she has one brother who is with two children. The patient describes herself as very close to her family. Parental/Familial policy specialist obligations The oldest is 14, then a 12-year-old and a 10-year-old. Developmental history and status ADHD diagnosed as an adult in 2021. Social support , partner, kids, bio-dad. Friends from [employer] and work. Community support PCP, providers. Sikh/Spirituality Gnosticist goes to [employer]. The rest of her household is [employer]. Cultural/Ethnic information . Legal Involvement and History Current or historical involvement with the legal system? None reported. Education Highest grade completed Masters degree. Preferred learning style Auditory and Visual Currently enrolled in educational program? No Interested in further educational program? 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 ) Wants help to find employment? No Meaningful activities family activities, theater, museums, concerns. Reading, writing, some visual arts. Financial Situation Describe current financial situation Occasional struggle Financial assistance? None Service Service? No Mental Health and Addiction Treatment Current/Past substance abuse? No Comments Alcohol: 1-3 drinks at day. - Havent' drink since May/2025, reports no challenges. Cigarettes/Tobacco: None Cannabis/Edibles: None Current/Past addictive behavior concerns? No Psychiatric history Patient is currently engaged in weekly counseling with Jessica Wallace LCSW, in private practice since January 2020. She is prescribed Lexapro 10 mg daily by her primary care provider. Diagnosed psychiatric conditions include Major Depressive Disorder, Generalized Anxiety Disorder, Panic Disorder, and ADHD. Patient reports a history of suicidal ideation intermittently and three suicide attempts during adolescence. She denies any psychiatric hospitalizations, crisis interventions, or inpatient mental health treatment. No current or recent safety concerns reported in adulthood. Medical and Physical Health Summary Additional Medical History not covered in history None aditional Sexual History concerns None reported. Physical exam in the last year? Yes Pain Screening Current pain? Yes Pain in the last few months? Yes Medications Is the patient compliant with medications? Yes Does the patient have Ivy Guardian in place? Not applicable Does the patient use complimentary health approaches? No Trauma/Abuse History History of trauma? No (AISHA score: 2) Questionnaires PHQ-9 Over the last 2 weeks, how often have you been bothered by any of the following problems? 1. Little interest or pleasure in doing things: not at all 2. Feeling down, depressed, or hopeless: not at all 3. Trouble falling or staying asleep, or sleeping too much: several days (Had surgery recently.) 4. Feeling tired or having little energy: more than half the days (Due to recent surgery.) 5. Poor appetite or overeating: not at all 6. Feeling bad about yourself - or that you are a failure or have let yourself or your family down: not at all 7. Trouble concentrating on things, such as reading the newspaper or watching television: several days 8. Moving or speaking so slowly that other people could have noticed. Or the opposite - being so fidgety or restless that you have been moving around a lot more than usual: not at all 9. Thoughts that you would be better off or of hurting yourself in some way: not at all Total score: 4 Depression Screening Interpretation: Negative Depression Screening Done: Yes 24836 - PHQ-9 Billing: Yes Source: Developed by Drs. Ruddy Guy, Megha Richardson, Glenn Prince and colleagues, with an educational sil from [employer]. Binge Eating Scale Group 1 A. I don't feel self-conscious about my wt. or body size when I'm with others. B. I feel concerned about how I look to others, but it normally does not make me fell disappointed with myself C. I do get self-conscious about my appearance and wt. which makes me feel disappointed in myself. D. I feel very self-conscious about my wt. and frequently I feel intense shame and disgust for myself. I try to avoid social contacts because of my self-consciousness. Response Group 1: A Group 2 A. I don't have any difficulty eating slowly in the proper manner. B. Although I seem to gobble down foods, I don't end up feeling stuffed because of eating to much. C. At times, I tend to eat quickly and then, I feel uncomfortably full afterwards. D. I have the habit of bolting down my food, without really chewing it. When this happens I usually feel uncomfortably stuffed because I've eaten to much. Response Group 2: B Group 3 A. I feel capable to control my eating urges when I want to. B. I feel like I have failed to control my eating more than the average person. C. I feel utterly helpless when it comes to feeling in control of my eating urges. D. Because I feel so helpless about controlling my eating I have become very desperate about trying to get control. Response Group 3: B Group 4 A. I don't have the habit of eating when I'm bored. B. I sometimes eat when I'm bored, but often I'm able to get busy and get my mind off food. C. I have a regular habit of eating when I'm bored, but occasionally, I can use some other activity to get my mind off eating. D. I have a strong habit of eating when I'm bored. Nothing seems to help me breath the habit. Response Group 4: B Group 5 A. I'm usually physically hungry when I eat something. B. Occasionally, I eat something on impulse even though I really am not hungry. C. I have the regular habit of eating foods, that I might not really enjoy, to satisfy a hungry feeling even though physically, I don't need the food. D. Although I'm not physically hungry, I get a hungry feeling in my mouth that only seems to be satisfied when I eat a food, like sandwich, that fills my mouth. Sometimes, when I eat the food to satisfy my mouth hunger, I then spit the food out so I won't gain weight. Response Group 5: B Group 6 A. I don't feel any guilt or self-hate after I overeat. B. After I overeat, occasionally I feel guilt or self-hate. C. Almost all the time I experience strong guilt or self-hate after I overeat. Response Group 6: A Group 7 A. I don't lose total control of my eating when dieting even after periods when I overeat. B. Sometimes when I eat a forbidden food on a diet, I feel like I blew it and eat even more. C. Frequently, I have the habit of saying to myself, I've blown it now, why not go all the way, when I overeat on a diet. When that happens I eat more. D. I have a regular habit of starting a strict diets for myself but I break the diets by going on an eating binge. My life seems to be either a feast or famine. Response Group 7: B Group 8 A. I rarely eat so much food that I feel uncomfortably stuffed afterwards. B. Usually about once a month, I each such a quantity of food, I end up feeling very stuffed. C. I have regular periods during the month when I eat large amounts of food, either at mealtime or at snacks. D. I eat so much food that I regularly feel quite uncomfortable after eating and sometimes a bit nauseous. Response Group 8: B Group 9 A. My level of calorie intake does not go up very high or go down very low on a regular basis. B. Sometimes after I overeat, I will try to reduce my caloric intake to almost nothing to compensate for the excess calories I've eaten. C. I have a regular habit of overeating during the night. It seems that my routine is not to be hungry in the morning but overeat in the evening. D. In my adult years, I have had week-long periods where I practically starve myself. This follows periods when I overeat. It seems I live a life of either feast or famine. Response Group 9: B Group 10 A. I usually am able to stop eating when I want to. I know when enough is enough. B. Every so often, I experience a compulsion to eat which I can't seem to control. C. Frequently, I experience strong urges to eat which I seem unable to control, but at other times I can control my eating urges. D. I feel incapable of controlling urges to eat. I have a fear of not being able to stop eating voluntarily. Response Group 10: A Group 11 A. I don't have any problem stopping eating when I feel full. B. I usually can stop eating when I feel full but occasionally overeat leaving me feeling uncomfortably stuffed. C. I have a problem stopping eating once I start and usually I feel uncomfortably stuffed after I eat a meal. D. Because I have a problem not being able to stop eating when I want, I sometimes have to induce vomiting to relieve my stuffed feeling. Response Group 11: B Group 12 A. I seem to eat just as much when I'm with others, Family social gatherings as when I'm by myself. B. Sometimes, when I'm with other persons, I don't eat as much as I want to eat because I'm self-conscious about my eating. C. Frequently, I eat only a small amount of food when others are present, because I'm very embarrassed about my eating. D. I feel so ashamed about overeating that I pick times to overeat when I know no one will see me. I feel like a closet eater. Response Group 12: A Group 13 A. I eat three meals a day with only an occasional between meal snack. B. I eat 3 meals a day, but I also normally snack between meals. C. When I am snacking heavily, I get in the habit of skipping regular meals. D. There are regular periods when I seem to be continually eating, with no planned meals. Response Group 13: A Group 14 A. I don't think much about trying to control unwanted eating urges. B. At least some of the time, I feel my thoughts are pre-occupied with trying to control my eating urges. C. I feel that frequently I spend much time thinking about how much I ate or about trying not to eat anymore. D. It seems to me that most of my waking hours are pre-occupied by thoughts about eating or not eating. I feel like I'm constantly struggling not to eat. Response Group 14: B Group 15 A. I don't think about food a great deal. B. I have strong craving for food but they last only for brief periods of time. C. I have days when I can't seem to think about anything else but food. D. Most of my days seem to be pre-occupied with thoughts about food. I feel like I live to eat. Response Group 15: C Group 16 A. I usually know whether or not I'm physically hungry. I take the right portion of food to satisfy me. B. Occasionally, I feel uncertain about knowing whether or not I'm physically hungry. A these times it's hard to know how much food I should take to satisfy me. C. Even though I might know how many calories I should eat, I don't have any idea what is a normal amount of food for me. Response Group 16: A Binge Eating Score: 11 Score less than 17 Minimal Risk Score between 18-26 Moderate Risk Score between 27-46 High Risk Assessment & Plan Assessment & Plan (1) Generalized anxiety disorder: Code(s): F41.1 - Generalized anxiety disorder (2) Panic disorder: Code(s): F41.0 - Panic disorder [episodic paroxysmal anxiety] (3) Major depressive disorder: Code(s): F32.9 - Major depressive disorder, single episode, unspecified (4) Pre-bariatric surgery psychological evaluation: Code(s): Z71.89 - Other specified counseling Plan Following a comprehensive behavioral health assessment?including review of the Binge Eating Scale, PHQ-9, mental status evaluation, and patient self-report?there are currently no behavioral health contraindications to proceeding with bariatric surgery. The patient demonstrates appropriate insight, motivation, and psychological readiness for the procedure. No active psychiatric symptoms or maladaptive eating behaviors were identified that would impede surgical outcomes at this time. The patient is cleared from a behavioral health perspective to proceed with bariatric surgery and documentation can be submitted for insurance approval as indicated. PT will return for a follow-up behavioral health visit 1?4 weeks postoperatively to monitor psychological adjustment, reinforce coping strategies, and screen for any emerging concerns such as mood changes, adjustment difficulties, or disordered eating patterns. Additional behavioral health support will be provided as needed based on postoperative assessment. Next melissa: 1-4 weeks PO. Telehealth Telehealth Telehealth Platform: [employer] Location of provider rendering services: other (Home office. [place], [place]) Location of patient: address on file Patient Identification confirmed using: Name, : Yes Telehealth method: video Patient verbally consented to treatment: Yes Patient verbally consented to billing insurance company: Yes Patient informed of any privacy concerns related to visit: Yes Minutes spent on Phone/Video with Pt.: 60 Coding Level of Care Code Established Pt Tele Psytx >53 mins (90164) Patient Type Established Diagnoses Generalized anxiety disorder F41.1 Panic disorder F41.0 Major depressive disorder F32.9 Pre-bariatric surgery psychological evaluation Z71.89 Additional Codes PHQ-9 - 41358 - PHQ-9 Billing: Yes ([id number]) Time Spent (min) 60
== END 2025-08-25 11:12 | disposition home or self-care (01) ==
LOC: HO.HBST 10:46
PROVIDERS: PCP Pediatrics; Visit Provider Counselor Mental Health
DX: F32.0 Major depressive disorder, single episode, mild (principal); F41.1 Generalized anxiety disorder; F41.0 Panic disorder [episodic paroxysmal anxiety]; Z71.89 Other specified counseling
CPT/HCPCS: 90837

== ENCOUNTER 2025-09-27 08:19 | Outpatient (REF) | payer OTHER, SELFPAY ==
--- OUTSIDE RECORDS SUMMARY | 2025-04-18 05:58 | XMS_ITS | Continuity of Care Document ---
Author Organization [facility] Address [address] [place] [address] Phone Care Team Providers Care Service Plumber Name Role Phone Charlie VALDEZ, Carlene Pedroza Unavailabl e Allergies, Adverse Reactions, Alerts Substance Reaction Status Criticality PSEUDOEPHEDRINE HCL Active No Infor mation Sulfa (Sulfonamide Antibiotics) Active No Information oxycodone Active No Information Procedures Procedure Date Office/Outpt E&M Established 15 Mins- CT & [place] Duplex Scan-extrem Veins; Comp- CT & [place] Duplex Scan-extrem Veins; Uni/ CT & [place] [...] Diagnoses Date Provider Providers Copied on Encounter [facility] MD JEROME, [address] [place] [address] Dr Barrera [address] [address], [id number], [place] tel:[phone] CVR - [facility] No Information 5 Charlie Concepcion. [address], [address], [place], [place], [id number], [place]. tel:[phone] Office/Outpt E&M Established 15 [facility]- [place] & [facility] MD JEROME, [address] [place] [address] Dr Barrera [address] [place], [id number], [place] tel:[phone] CVR - [facility] Localized edemaVenous insufficienc y (chronic) (peripheral) Lymphedema, not elsewhere classifiedLi poedma 5 Axel VALDEZ RVT, AJITH Fox. [address] [place] [address], [id number], [place]. tel:[phone] Referring Provider: Angelo Pinzon, [address] [place] [address], [place], [address]. tel:[phone] [facility] MD JEROME, [address] [place] [address] Dr Barrera [address], [id number], [place] tel:[phone] [facility] Chronic venous hypertension (idiopathic) with other complication s of bilateral lower extremity 5 Axel VALDEZ RVT, AJITH Fox. [address] [place] [address], [place], [place], [id number], [place]. tel:[phone] Referring Provider: Angelo Pinzon, [address] [place] [address], [place], [address]. tel:[phone] [facility], [address] [place] [address] Dr Barrera [address], [id number], [place] tel:[phone] [facility] [place] Encounter for follow-up examination after completed treatment for conditions other than malignant neoplasmPain in left leg Feb- 5 Axel VALDEZ RVT, AJITH Fox. [address] [place] [address], [address], [id number], [place]. tel:[phone] Referring Provider: Angelo Pinzon, [address] [place] [address] [place] [address], [place] [address], [facility] [place], [address]. tel:[phone] [facility], [address] [place] [address] Dr Barrera [address], [id number], [place] tel:[phone] [facility] - [facility] Varicose veins of left lower extremity with other complication s Feb- 5 Axel VALDEZ RVT, AJITH Fox. [facility], [address], [id number], [place]. tel:[phone] Referring Provider: Angelo Pinzon, [facility] [place] [place] [address], [place], [address]. tel:[phone] [facility], [address] [place] [address] Dr Barrera [address]Suite [place], [id number], [place] tel:[phone] [facility] - [facility] Encounter for follow-up examination after completed treatment for conditions other than malignant neoplasmVari cose veins of right lower extremity with pain Feb- 5 Axel VALDEZ RVT, AJITH Fox. [address] [place] [address], [address], [id number], [place]. tel:[phone] Referring Provider: Angelo Pinzon, [address] [place] [address] [place] [address], [place] [address], [place], [address]. tel:[phone] [facility], [address] [place] [address] Dr [address], [place], [id number], [place] tel:[phone] [facility] [place] Varicose veins of right lower extremity with other complication s 5 Axel VALDEZ RVT, AJITH Fox. [address] [place] [address], [id number], [place]. tel:[phone] Referring Provider: Angelo Pinzon, [address] [place] [address], [facility] [place], [address]. tel:[phone] [facility], [address] [place] [address] Dr Barrera 1000[facility] [address], [id number], [place] tel:[phone] [facility] [place] No Information 5 Axel VALDEZ RVT, AJITH Fox. [address] [place] [address], [id number], [place]. tel:[phone] [facility], [address] [place] [address] Dr [address] [place] [address] [place], [id number], [place] tel:[phone] [facility] - [facility] Chronic venous hypertension (idiopathic) with inflammation of right lower extremity 5 Axel VALDEZ, LUCY, AJITH Fox. [address] [place] [address], [id number], [place]. tel:[phone] Referring Provider: Angelo Pinzon, [address] [place] [address], [place], [address]. tel:[phone] Offic/outpt E&m Estab 5 Min Trial- Telemedicine CT & [place] [facility], [address] [place] [address] Dr Barrera 1000[facility] [address], [id number], [place] tel:[phone] [facility] [place] Localized edemaVenous insufficienc y (chronic) (peripheral) 5 Jarocho Suh. [address] [place] [address], [id number], [place]. tel:[phone] Referring Provider: Angelo Pinzon, [address] [facility] [address] [place] [address], [place] [address], [place], [address]. tel:[phone] Offic Cons New/estab Mod 40 Mi- CT & [place] [facility], [address] [place] [address] [facility] [address], [place], [id number], [place] tel:[phone] CVR - [facility] Chronic venous hypertension (idiopathic) with other complication s of bilateral lower extremityLoc alized edema 5 Axel VALDEZ RVT, AJITH Fox. [address] [place] [address], [id number], [place]. tel:[phone] Referring Provider: Angelo Pinzon, [facility] [address] [place] [address], [place], [address]. tel:[phone] [facility], [address] [place] [address] [address] 1000, [place], [id number], [place] tel:[phone] [facility] Chronic venous hypertension (idiopathic) with other complication s of bilateral lower extremity 5 Axel VALDEZ RVT, AJITH Fox. [address] [place] [address], [place] [address], [place], [place], [id number], [place]. tel:[phone] Referring Provider: Angelo Pinzon, [facility] [address] [place] [address], [place], [address]. tel:[phone] Family History Family Member Type Diagnosis Age At Onset No Information Payers Payer name Insurance type Covered libertarian ID Doris nickerson([employer] [place] [employer] [id number] Social History Type Description Quantity Date Captured Comments Alcohol Use Details Unknown Caffeine Use Details Unknown Tobacco Use Status No Information Smoking Status No Information Sex Female Chief Complaint And Reason For Visit No Information Reason For Referral Reason For Referral No Information Plan Of Treatment Date Type Action Status Goal Diet education completed Goal Diet education completed Referral Ordered: Weight management: Referral to physician timeframe: 3 Months (related to Body mass index (BMI) 50-59.9 , adult) ordered Referral Ordered: Weight management: Referral to physician timeframe: 3 Months (related to Body mass index (BMI) 50-59.9 , adult) ordered Appointment Joanna Elise (6 Month ) BOOKED Appointment Joanna Elise (6 Month) BOOKED History Of Present Illness Encounter Date Complaint History Of Prese nt Illness No Information Functional Status Date Functional Assessmen t No Information Instructions Date Instruction Additional Infor mation Patient education booklet given Related to Localized edema Compression stocking usage as conservative measure Related to Localized edema Lifestyle education Related to B itzel mass index (BMI) 50-59.9 , adult Giving Encouragement to exercise Related to Body mass index (BMI) 50-59.9 , adult Diet education Related to Body mass index (BMI) 50-59.9 , adult Compression stocking usage as conservative measure Related [...]
--- NOTE | ~2025-09-27 | US_ITS ---
EXAMINATION: US COMPLETE ABDOMEN WITH LIVER ELASTOGRAPHY CLINICAL INFORMATION: Moderate/severe obesity due to excess calories. COMPARISON: None available. TECHNIQUE: Real-time imaging of the abdominal viscera. Noninvasive ultrasound liver fibrosis assessment is performed using Dillon ElastPQ point quantification shear wave elastography (pSWE) with a C5-2 MHz transducer. Multiple elastography samples are obtained. FINDINGS: PANCREAS: The visualized pancreatic head and body are normal in appearance. The remainder of the pancreas is obscured from visualization by the overlying bowel gas. ABDOMINAL AORTA: The proximal and distal abdominal aorta is of normal caliber. The mid abdominal aorta is nonwell-visualized. INFERIOR VENA CAVA: Visualized portions are normal. LIVER: The liver demonstrates normal size, contour and and slight increased echogenicity. No focal lesion or intrahepatic biliary duct dilatation. The right lobe measures 15.8 cm in length. The left lobe measures 11.9 cm in length. Portal flow is hepatopedal Shear wave liver elastography median stiffness is 1.29 m/s (reference: normal median stiffness is 1.3 m/s or less). IQR/median stiffness to assess sampling precision is 0.13 (reference: good quality data set is IQR/median stiffness of 0.15 or less). GALLBLADDER: The gallbladder has been surgically removed. COMMON BILE DUCT: Normal in caliber measuring 0.43 cm in diameter. RIGHT KIDNEY: No hydronephrosis. No renal calculi or focal parenchymal lesions. The kidney measures 12.0 cm in maximum dimension. LEFT KIDNEY: No hydronephrosis. No renal calculi or focal parenchymal lesions. The kidney measures 11.8 cm in maximum dimension. Hypertrophy hypertrophy column of [place] in midpole left kidney. SPLEEN: Unremarkable. The spleen measures 10.2 cm in maximum dimension. FREE FLUID: None seen. US/US abdomen comp w elastography IMPRESSION: 1. Slightly echogenic liver. Cholecystectomy. 2. Liver elastography: [Median liver stiffness 1.29M/S is suggestive of a highly probable normal exam. The sampling precision data is normal measuring 0.13 cm. However due increased depth the accuracy may be less than normal. REFERENCE: Society of Radiologists in Ultrasound Liver Stiffness Thresholds (2020): LIVER STIFFNESS THRESHOLDS: *Liver Stiffness equal or less than 1.3 m/s: High probability of being normal. *Liver Stiffness less than 1.7 m/s: In the absence of other known clinical signs, rules out compensated advanced chronic liver disease. *Liver Stiffness 1.7-2.1 m/s: Suggestive of compensated advanced chronic liver disease but need further test for confirmation. *Liver Stiffness over 2.1 m/s: Rules in compensated advanced chronic liver disease. *Liver Stiffness over 2.4 m/s: Suggestive of clinically significant portal hypertension. QUALITY OF DATA SET: *IQR/Median value equal or less than 0.15 implies a quality data set. *IQR/Median value over 0.15 implies a poor quality data set. SIGNIFICANT CHANGE FROM PRIOR EXAM: Significant change if liver stiffness measurement is 10% or greater from prior exam. OTHER CONSIDERATIONS: The stage of liver fibrosis may be overestimated in the setting of acute hepatitis, liver inflammation, elevated liver function tests, hepatic vascular congestion, obstructive cholestasis, non-fasting state, and infiltrative diseases such as amyloidosis and lymphoma. In some patients with NAFLD, the liver stiffness thresholds for compensated advanced chronic liver disease may be lower. In causes other than viral hepatitis and NAFLD, liver stiffness thresholds are not well established. Electronically signed by: Duran Padron MD 09/27/2025 10:02 AM [facility]
--- OUTSIDE RECORDS SUMMARY | 2025-09-27 08:25 | XMS_ITS | Clinical Summary ---
Author Organization [facility] Address [address] [place] [phone] Phone Care Team Providers Care Refuse And Recycling Worker Name Role Phone Angelo Dey MD [...] (VITAMIN D3 ORAL) Take by mouth. Active Social History Tobacco Use Types Packs/Day Years [...] 06/15/2025 3:19 PM EDT Plan of Treatment Upcoming Encounters Date Type Department Care Team ([facility] Contact Info) Description 10/27/2025 11:00 AM EST Office Visit [facility] [address] [place] [address] Unknown, Unknown, Megha Davidson, BULB PACKER [address] [address] [email or web address] Health Maintenance Due Date Last Done Comments CREATININE LEVEL 1979 LIPID PANEL 1979 POTASSIUM LEVEL 1979 TSH LEVEL 1979 DEPRESSION SCREENING 1991 HEPATITIS C SCREENING 1997 HIV ONE-TIME SCREENING (18-65 YEARS) 1997 PNEUMOCOCCAL VACCINES (0-49 years) (1 of 2 - PCV) 1998 PAP SMEAR 2000 SCREENING FOR DIABETES 2014 COLOGUARD 2024 FIT TEST 2024 FOBT 2024 SIGMOIDOSCOPY 2024 VIRTUAL COLONOSCOPY 2024 INFLUENZA VACCINE (#1) 2025 , 08/05/2023, 08/07/2022, Additional history exists COVID-19 VACCINE (2024- season) 2025 08/15/2024, 09/25/2023, 08/23/2022, Additional history exists MAMMOGRAM 12/22/2025 12/22/2023, 02/0 01/2023, 12/05/2021 COLONOSCOPY 06/23/2028 06/21/2025 COLORECTAL CANCER SCREENING 06/23/2028 Adult Td,Tdap Booster 04/05/2029 04/05/2019, 009 SMOKING STATUS SCREENING (Once After 26 Yrs) Completed 06/15/2025 HEPATITIS A VACCINES Aged Out No long er eligible based on patient's age to complete this topic HIB VACCINES Aged Out No longer eligi ble based on patient's age to complete this topic IPV VACCINES Aged Out No longer eligi ble based on patient's age to complete this topic MENINGOCOCCAL VACCINES (ACWY) Aged Out No longer eligible based on patient's age to complete this topic MENINGOCOCCAL VACCINES (B) Aged Out N o longer eligible based on patient's age to complete this topic Medical Devices Not on file Procedures Procedure Name Priority Date/Time Associated Diagnosis Comments ENDOSCOPY, COLON 06/21/2025 8:08 AM EDT from Last 3 Months or Most Recently Relevant to Health Maintenance Results * ENDOSCOPY, COLON (06/21/2025 8:08 AM EDT) Narrative Transcriptions Toni Montague MD - 06/21/2025 8:08 AM EDT [facility] Patient Name: Joanna Elise Attending MD:: TONI MONTAGUE MD, Procedure Date: 06/21/2025 8:08 AM Date of : 1980 Age: 45 Admit Type: Outpatient Gender: Female Room: [place] [address] Referring MD: Angelo Dey MD Exam Type: [...] bowel preparation was evaluated using the BBPS ([employer] Bowel Preparation Scale) with scores of:Right Colon [...] minimal. There was evidence of a prior vvq-ee-amsmnmr-colonic anastomosis in the sigmoid colon. This was [...] 8:08 AM Procedure Code(s): --- Professional --- 49949, Colonoscopy, flexible; with removal of tumor(s), polyp(s), or other lesion(s) by snare technique --- Technical --- 34557, Colonoscopy, flexible; with removal of tumor(s), polyp(s), [...] or abscess without bleeding CPT copyright 2021 [employer]. All rights reserved. The codes documented in this report are preliminary and upon hr coordinator reviewmay be revised to meet current compliance requirements. Procedure Date: 06/21/2025 8:08:27 AM [address] [place] [address] Angelo Dey MD GI PROCEDURE ORDERABLE S Final Result from Last 3 Months or Most Recently Relevant to Health Maintenance Insurance O Member Subscriber Plan / Payer (Ef fective 2022-Present) Name:Joanna Elise Relation to Subscriber:Self Name:Joanna Elise Payer ID:Not on file Type:O Address: [place] [id number] Care Teams Refuse And Recycling Worker Relationship Specialty Start Date End Date Angelo Dey MD [address] [place] [address] PCP - General Internal Medicine 06/21/25 Additional Source Comments The information contained in this document represents components of the legal health record. It is not the complete legal health record.[facility]
--- OUTSIDE RECORDS SUMMARY | 2025-09-27 08:26 | XMS_ITS | Data Portability ---
Author Organization [facility], Main Office Address [address] [facility] [place] [address] Care Team Providers Care Program Management Specialist Name Role Phone ANGELO RING Primary Care Provider [phone] AIYANA OBREGON Neurologist [facility] Manager Actuarial [facility] SCHEDULING DEPT Staff Climate Scientist [facility] Chip Unloader IRINEO LANGFORD Vascular Surgeon [facility] Director Learning And Development [phone] [facility] Sleep Medicine JJ MEDRANO Thoracic Surgeon DANNA PEACE Bariatric Surgeon [phone] MISHA MAYNARD Naturopathic Medicine [phone] Assessment No assessment recorded. Plan of Treatment Reminders Order Date Submit Date Provider Last Modified By Organization Details Last Modified Time Details Appointments FOLLO W UP 30MIN 2025 09:00A M Angelo Ring MD Not available Not available Not available Lab TSH + free T4, serum 2024 026 suzy [facility] (Centralized Electronic Ordering - All Locations), Patient Can Go To The Location Of Their Choice, [id number] 09/08/2025 09:16:45 T3, free, serum or plasm a 2024 026 suzy [facility] (Centralized Electronic Ordering - All Locations), Patient Can Go To The Location Of Their Choice, [id number] 09/08/2025 09:16:45 HbA1c (hemo globi n A1c), blood 2024 026 awychowski [facility] (Centralized Electronic Ordering - All Locations), Patient Can Go To The Location Of Their Choice, [id number] 09/08/2025 09:16:44 lipid panel , serum 2024 026 awychowski [facility] (Centralized Electronic Ordering - All Locations), Patient Can Go To The Location Of Their Choice, [id number] 09/08/2025 09:16:44 CMP, serum or plasm a 2024 026 awychowski [facility] (Centralized Electronic Ordering - All Locations), Patient Can Go To The Location Of Their Choice, [id number] 09/08/2025 09:16:45 HbA1c (hemo globi n A1c), blood 2024 025 RICK [facility] (Centralized Electronic Ordering - All Locations), Patient Can Go To The Location Of Their Choice, [id number] 07/27/2025 08:38:27 CMP, serum or plasm a 2024 025 RICK [facility] (Centralized Electronic Ordering - All Locations), Patient Can Go To The Location Of Their Choice, [id number] 07/25/2025 11:58:20 lipid panel , serum 2024 025 RICK [facility] (Centralized Electronic Ordering - All Locations), Patient Can Go To The Location Of Their Choice, [id number] 07/25/2025 11:58:20 HbA1c (hemo globi n A1c), blood 2024 025 RICK [facility] (Centralized Electronic Ordering - All Locations), Patient Can Go To The Location Of Their Choice, 04/08/2025 08:07:19 strep group A, DNA, swab 2024 025 RICK In-Office Order, Internal Use Only DO Not Attach Compendium DO Not Attach Compendium, Do Not Delete/merge, [id number] 02/16/2025 10:47:[address] refer herrera - Kasandrae nt to sched ule 2024 025 [email or web address] Not available 09/08/2025 09:26:11 physi [facility] il[facility] tion refer ral - for eval of left shoul denilson pain 2024 025 [email or web address] Alexandre vincent MD, [address], [address], [place], [address], 09/08/2025 09:26:11 physi barry thera pist refer ral - for left shoul denilson PT for bieps tendi nitis /rota tor cuff bursi tis 2024 025 [email or web address] [facility], [address], [place], [address], 09/08/2025 09:26:[address]/di etiti an refer ral 2024 025 [email or web address] Not available 09/09/2025 08:43:18 gastr dari vivar ist refer ral - for fatty liver disea se 2024 025 GARY Bowen MD, [address] [place], [address], 05/26/2025 16:00:06 lymph edema consu lt - for lymph edema evalu ation /queenie gemen t 2024 025 [email or web address] [facility] (Physical Therapy), [address] [facility], [facility], [place], [address], 05/26/2025 15:24:16 rheum atolo gist refer ral - for eval of knee pain and ayden rn for conne ctive tissu e disea se. 2024 025 GARY Sebastian MD, [address] [place], [address], 05/30/2025 10:04:23 physi barry thera pist refer ral - for right pena lofem oral pain. [address] [facility], [address], [place], [address], 04/07/2025 15:39:47 physi barry medic ine and rehab ilita tion refer ral - for eval of chron ic knee pain with unrem arkab le xray. 2024 025 suzy Be MD, [address] [facility], [facility] [address], [place], [address], 05/26/2025 10:48:29 weigh t manag ement refer ral - For weigh t manag ement [address] [facility], [address] [place] [address] Dr, [facility] [address], [place], [address], 05/06/2025 12:31:44 Procedures None recor ded. Surgeries None recor ded. Imaging MAMMO , scree loli, bilat eral - Perfo rm Diagn ostic Mammo gram and Breas t Ultra sound if neede d / Perfo rm Ultra sound Guide d Aspir ation and/o r Breas t Biops y if warra nted [email or web address] [place] [address] Radiology, [address], [place], [address], 09/08/2025 09:26:11 XR, knee, 3 view - to asses s arthr itis lew n in pt with pain 2024 [facility]25 [facility], [address] [facility], [place], [address], 04/08/2025 09:07:31 Medication Orders Zepbo und 12.5 mg/0. 5 mL subcu taneo us pen injec tor 2024 025 suzy [id number], [phone] [facility], [place], [address], 04/12/2025 16:18:33 ondan setro n 4 mg disin tegra ting table t 2024 025 [id number], [phone] [place], [address], 02/28/2025 05:01:00 Patient TargetsNo targets recorded. Patient Instructions Encounter Date Encounter Id Patient Instructions Last Modified By Organization Details Last Modified Time 02/16/2025 [id number] food poisoning: care instructions [email or web address] Not available 02/16/2025 12:19:59 gastroenteritis: care instructions [email or web address] Not available 02/16/2025 12:19:59 oral rehydration : care instructions jthabet Not available 02/16/2025 10:40:27 dehydration: car e instructions jthabet Not available 02/16/2025 10:40:27 To call or retur n for worsening or concerns jthabet Not available 02/16/2025 10:34:50 02/22/2025 [id number] depression treatment: care instructions awychowski Not available 02/22/2025 15:29:25 high blood pressure: care instructions awychowski Not available 02/22/2025 15:29:25 learning about high blood pressure awychowski Not available 02/22/2025 15:29:25 When You Want to Lose Weight: Care Instructions awychowski Not available 02/22/2025 15:29:25 04/07/2025 [id number] patellofemoral pain syndrome: care instructions awychowski Not available 04/07/2025 15:34:04 body mass index: care instructions awychowski Not available 04/07/2025 15:34:04 learning about healthy weight awychowski Not available 04/07/2025 15:34:05 When You Want to Lose Weight: Care Instructions awychowski Not available 04/07/2025 15:34:04 05/26/2025 [id number] body mass index: care instructions awychowski Not available 05/26/2025 10:53:09 learning about healthy weight awychowski Not available 05/26/2025 10:53:09 high blood pressure: care instructions awychowski Not available 05/26/2025 10:53:09 learning about high blood pressure awychowski Not available 05/26/2025 10:53:08 09/08/2025 [id number] high cholesterol : care instructions syedowski Not available 09/08/2025 09:16:45 Cervical Cancer Screening awychowski Not available 09/08/2025 09:16:45 biceps tendiniti s: exercises awychowski Not available 09/08/2025 09:16:44 rotator cuff: exercises awychowski Not available 09/08/2025 09:16:44 Starting a Weight-Loss Plan: Care Instructions awdanielaowski Not available 09/08/2025 09:16:44 Nutrition Referr al and Weight Management Follow-up Information [email or web address] Not available 09/08/2025 09:16:44 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 Weight Management Referral f or Body mass [...] Physician: Family Celeste Murillo, Encounter Date: 04/07/2025 Lymphedema Consult for Liped zay of lower extremity for lymphedema evaluation/management Referring Physician: Family Celeste Murillo, Encounter Date: 05/26/2025 Home Economics Teacher Referral for Patellofemoral syndrome of bilateral knees for eval of knee pain and concern for connective tissue disease. Referring Physician: Family Celeste Murillo, Encounter Date: 05/26/2025 Director Learning And Development Referral for Steatotic liver disease for fatty liver disease Referring Physician: Family Celeste Murillo, Encounter Date: 05/26/2025 Programmer Developer/dietitian Refer ral for Body mass index 40+ - severely obese Referring Physician: Family Celeste Murillo, Encounter Date: 09/08/2025 Staff Climate Scientist Referral for Sc reening for malignant neoplasm of cervix Patient to schedule Referring Physician: Angelo Ring [facility], Encounter Date: 09/08/2025 Physical Medicine And Rehabi litation Referral for Pain of left shoulder region for eval of left shoulder pain Referring Physician: Angelo Ring [facility], Encounter Date: 09/08/2025 Physical Therapist Referral for Pain of left shoulder region for left shoulder PT for bieps tendinitis/rotator cuff bursitis Referring Physician: Angelo Ring [facility], Encounter Date: 09/08/2025 Results Created Date Observation Date Name Description Value Unit Range Abnormal Flag Note LastModifiedBy Organization Detail LastModifiedTime 02/17/2002/16/2025 strep group A, DNA, swab ID NOW Strep A 2 (rapid molecular test) negati ve Not Available In-Office Order Internal Use Only DO Not Attach Compendium DO Not Attach Compendium, Do Not Delete/merge, [id number] 02/16/2025 10:34:12 04/07/2004/08/2025 HEMOG LOBIN A1C hemoglobin A1C 6.0 % 4.8-5. 6 above high normal Predi abete s: 5.7 - 6.4 Diabe rema: >6.4 Glyce margarito contr ol for adult s with diabe rema: <7.0 Not Available [facility] ([facility]) [address] [facility], [place], [address], 04/08/2025 08:07:19 04/08/20 25 04/08/2025 XR, knee, 3 view Knee 3 Views Right Reason : pain COMPAR EVELYN: 07/26/20 21 FINDIN GS: No bone lesion s or fractu res. No arthri tic change s. No joint effusi on, osteoc hondra l defect s or intra- articu lar loose bodies . IMPRES LUCIA: Normal . WSN: [id number] Orderi ng Physic mauro: Angelo Hernandez ed By: Angeli Lenz MD Dictgabe ed Date/T jay jay: 9:04 am Review ed By: Angeli Lenz MD Signed By: Angeli Lenz MD Signed Date/T jay jay: 9:04 am Transc ribed By: FLOYD Transc ribed Date/T jay jay: 9:03 am Patien t Class: Outpat ient [facility] (Outpt Imaging) [address], [place], [address], 05/26/2025 10:48:29 04/15/20 25 04/14/2025 venou s study , lower extre mity, compl ete No observ ation record ed. [facility] [address], [place], [address], 05/26/2025 10:48:29 05/16/20 25 05/16/2025 CT, chest , w/ contr ast No observ ation record ed. [facility] (Medical Records) [address] [place], [address], 05/26/2025 10:48:29 07/22/20 25 07/22/2025 XR, chest , 2 view No observ ation record ed. [facility] (Medical Records) [address] [place], [address], 09/08/2025 08:47:45 Result Notes Documentation Provider Name and Address Organization Details Recorded Time Xr, Knee, 3 View : Knee 3 Views Right Reason: pain COMPARISON: 07/26/2021 FINDINGS: No bone lesions or fractures. No arthritic changes. No joint effusion, osteochondral defects or intra-articular loose bodies. IMPRESSION: Normal. WSN: [id number] Ordering Physician: Angelo Ring Dictated By: Vic Hammond MD Dictated Date/Time: 04/08/25 9:04 am Reviewed By: Vic Hammond MD Signed By: Vic Hammond MD Signed Date/Time: 04/08/25 9:04 am Transcribed By: FLOYD Transcribed Date/Time: 04/08/25 9:03 am Patient Class: Outpatient Angelo Ring MD [address] [facility] [address], [place], [address], [facility] 05/26/2025 10:48:29 Problems Name Problem SNOMED Code Status Onset Date Resolution Date Notes Provider Name and Address Organization Details Recorded Time Body mass index 30+ - obesity 182642624 Completed 07/06/2020 Cassia Mcpherson MA null, [facility] 0 15:05:27 Pain of multiple joints 61075753 Active Not Available [facility], [facility] 3 13:43:23 Mixed anxiety and depressi ve disorder 341386324 Completed 04/02/2017 Angelo Ring MD [address] [facility] [address], [place], [address] , [facility] 7 10:20:46 Abdomina l pain 86241212 Completed 03/28/2016 Angelo Ring MD [address] [facility] [address], [place], [address] , [facility] 6 21:33:38 Divertic ular disease 076445207 Active s/p partial colectom y Not Available [facility] 3 13:43:23 Diplopia 07907607 Active Not Available [facility], [facility] 3 13:43:23 Floaters in visual field 852814559 Completed 03/28/2016 Angelo Ring MD [address] [facility] [address], [place], [address] , [facility] 6 21:33:38 Headache 89439721 Completed 04/02/2017 Angelo Ring MD [address] [facility] [address], [place], [address] , [facility] 7 10:20:58 Myasthen ia gravis 19883648 Active seronega tive Angelo Ring MD [address] [facility] [address], [place], [address] , [facility] 5 06:32:36 Acne 32479837 Completed 04/02/2017 Angelo Ring MD [address] [facility] [address], [place], [address] , [facility] 7 10:20:27 Hypergly cemia 03921058 Completed 04/02/2017 Angelo Ring MD [address] [facility] [address], [place], [address] , [facility] 7 10:21:18 Vitiligo 44182760 Active Not Available [facility] 3 13:43:23 Autoimmu ne polyendo crinopat hy 62174026 Active Not Available [facility], [facility] 3 13:43:23 Malaise and fatigue 005747522 Completed 201205/31/2014 IMPRESSI ON: COUPLED TO CHEST [...] ANNOTATI ON/ADDEN DUM Angelo Ring MD [address] [facility] [address], [place], [address] , [facility] 6 21:33:38 History of infectio us disease 962578716 Completed 201205/31/2014 RECORDED 01/28/20 13 4:18PM BY CASSIA MCPHERSON MA, ANNOTATI ON/ADDEN DUM Angelo Ring MD [address] [address], [place], [address] , [facility] 6 21:33:38 Immuniza tion refused Completed 201205/31/2014 RECORDED 01/28/20 13 4:18PM BY CASSIA MCPHERSON MA, ANNOTATI ON/PINEDA Ring MD [address], [place], [address] , [facility] 6 21:33:38 Malaise and fatigue 034342215 Completed 201206/27/2014 IMPRESSI ON: COUPLED TO CHEST [...] 13 4:18PM BY CASSIA MCPHERSON MA, ALEX ON/PINEDA Ring MD [address] [facility] [address], [place], [address] , [facility] 6 21:33:38 History of infectio us disease 926355961 Completed 201206/27/2014 RECORDED 01/28/20 13 4:18PM BY CASSIA MCPHERSON MA, ALEX ON/PINEDA Ring MD [address] [facility] [address], [place], [address] , [facility] 6 21:33:38 Immuniza tion refused Completed 201206/27/2014 RECORDED 01/28/20 13 4:18PM BY CASSIA MCPHERSON MA, ALEX ON/PINEDA Ring MD [address] [facility] [address], [place], [address] , [facility] 6 21:33:38 Patient status finding 050740030 Completed 201205/31/2014 RECORDED 05/21/20 13 2:50PM BY GANESH HOPE MA, ALEX ON/PINEDA Ring MD [address] [facility] [address], [place], [address] , [facility] 6 21:33:38 Chest pain 94614846 Completed 201205/31/2014 IMPRESSI ON: SYMPTOMS C/W EIA POSSIBLE ANXIETY COMPONEN T. WILL TRY PRE EXERCISE MDI. ADVISED TO CALL IF PERSISTA NT/WORSE .; RECORDED 05/21/20 13 2:50PM BY GANESH HOPE MA, ANNOTATI ON/PINEDA Ring MD [address] [facility] [address], [place], [address] , [facility] 6 21:33:38 Tachycar effie 3006157 Completed 201205/31/2014 IMPRESSI ON: WILL SCREEN FOR CONDUCTI ON ABNORMAL ITY.; RECORDED 05/21/20 13 2:50PM BY GANESH HOPE MA, ANNOTATI ON/PINEDA Ring MD [address] [address], [place], [address] , [facility] 6 21:33:38 Patient status finding [id number] Completed 201206/27/2014 RECORDED 05/21/20 13 2:50PM BY GANESH HOPE MA, ALEX ON/PINEDA Ring MD [address] [address], [place], [address] , [facility] 6 21:33:38 Chest pain 90578952 Completed 201206/27/2014 IMPRESSI ON: SYMPTOMS C/W EIA POSSIBLE ANXIETY COMPONEN T. WILL TRY PRE EXERCISE MDI. ADVISED TO CALL IF PERSISTA NT/WORSE .; RECORDED 05/21/20 13 2:50PM BY GANESH HOPE MA, CAROLINEATI ON/PINEDA Ring MD [address] [facility] [address], [place], [address] , [facility] 6 21:33:38 Tachycar effie 1409159 Completed 201206/27/2014 IMPRESSI ON: WILL SCREEN FOR CONDUCTI ON ABNORMAL ITY.; RECORDED 05/21/20 13 2:50PM BY GANESH HOPE MA, ANNOTATI ON/ADDEN DUM Angelo Ring MD [address] [facility] [address], [place], [address] , [facility] 6 21:33:38 Influenz a vaccine needed 46125802389 06 Completed 201205/31/2014 RECORDED 07/31/20 13 10:03AM BY RAMYA BENTON I, NURSE VISIT Angelo Ring MD [address] [facility] [address], [place], [address] , [facility] 6 21:33:38 Influenz a vaccine needed 95177684929 06 Completed 201206/27/2014 RECORDED 07/31/20 13 10:03AM BY RAMYA BENTON I, NURSE VISIT Angelo Ring MD [address] [facility] [address], [place], [address] , [facility] 6 21:33:38 Anaphyla xis 29359784 Completed 201305/31/2014 STORY: UNKNOWN CAUSE OCT 2012; RECORDED 02/25/20 14 8:52AM BY ANGELO Siegel MD, ANNOTATI ON/ADDEN DUM Angelo Ring MD [address] [facility] [address], [place], [address] , [facility] 6 21:33:38 Autoimmu ne disease 64059309 Completed 201305/31/2014 RECORDED 02/25/20 14 8:52AM BY ANGELO Siegel MD, ANNOTATI ON/ADDEN DUM Angelo Ring MD [address] [facility] [address], [place], [address] , [facility] 6 21:33:38 Screenin g for malignan t neoplasm of cervix Completed 201305/31/2014 RECORDED 02/25/20 14 8:30AM BY CASSIA MCPHERSON MA, ANNOTATI ON/ADDEN DUM Angelo Ring MD [address] [facility] [address], [place], [address] , [facility] 6 21:33:38 Lyme disease 47269533 Completed 201305/31/2014 IMPRESSI ON: SXS CONSISTE NT WITH EARLY LYME, WILL TREAT. 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 I DO NOT SEE ANY BELLS PALSY AT THIS POINT. REASSURE Shine ZARATE THAT SHE HAS NO DROOP; RECORDED 02/25/20 14 8:52AM BY ANGELO Siegel MD, ANNOTATI ON/ADDEN DUM Angelo Ring MD [address] [facility] [address], [place], [address] , [facility] 6 21:33:38 Panic disorder without agorapho litzy 83548999 Completed 201305/31/2014 RECORDED 02/25/20 14 8:52AM BY ANGELO Siegel MD, ANNOTATI ON/ADDEN DUM Angelo Ring MD [address] [address], [place], [address] , [facility] 6 21:33:38 Anaphyla xis 27018183 Completed 201306/27/2014 STORY: UNKNOWN CAUSE OCT 2012; RECORDED 02/25/20 14 8:52AM BY ANGELO Siegel MD, ANNOTATI ON/ADDEN DUM Angelo Ring MD [address] [facility] [address], [place], [address] , [facility] 6 21:33:38 Autoimmu ne disease 75146850 Completed 201306/27/2014 RECORDED 02/25/20 14 8:52AM BY ANGELO Siegel MD, ANNOTATI ON/ADDEN DUM Angelo Ring MD [address] [address], [place], [address] , [facility] 6 21:33:38 Screenin g for malignan t neoplasm of cervix Completed 201306/27/2014 RECORDED 02/25/20 14 8:30AM BY CASSIA MCPHERSON MA, ANNOTATI ON/ADDLEAH DUM Angelo Ring MD [address] [address], [place], [address] , [facility] 6 21:33:38 Lyme disease 53619617 Completed 201306/27/2014 IMPRESSI ON: SXS CONSISTE NT WITH EARLY LYME, WILL TREAT. 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 I DO NOT SEE ANY BELLS PALSY AT THIS POINT. REASSURE Shine ZARATE THAT SHE HAS NO DROOP; RECORDED 02/25/20 14 8:52AM BY ANGELO Siegel MD, ANNOTATI ON/PINEDA Ring MD [address] [address], [place], [address] , [facility] 6 21:33:38 Panic disorder without agorapho litzy 79810898 Completed 201306/27/2014 RECORDED 02/25/20 14 8:52AM BY ANGELO Siegel MD, ANNOTATI ON/PINEDA DUM Angelo Ring MD [address] [address], [place], [address] , [facility] 6 21:33:38 Anxiety state 747630261 Completed 201303/28/2016 Angelo Ring MD [address] [address], [place], [address] , [facility] 6 21:33:38 Hashimot o thyroidi tis 82885814 Active 2013 Not Available [facility] 3 13:43:23 Cough 71182084 Completed 201312/09/2014 IMPRESSI ON: LUNGS ARE CLEAR, ALREADY ON AUGMENTI N FOR SINUSITI S WILL COMPLETE COURSE, REC. MUCOLYTI CS/HYDRA TION; RECORDED 03/03/20 14 11:53AM BY LIZZETH PATHAK PA-C, OFFICE VISIT Angelo Ring MD [address] [address], [place], [address] , [facility] 6 21:33:38 Depressi ve disorder 07956449 Completed 201303/28/2016 Angelo Ring MD [address] [address], [place], [address] , [facility] 6 21:33:38 Recurren t major depressi ve episodes , in full remissio n Completed 201311/05/2019 Removal Reason: negative Angelo Ring MD [address] [address], [place], [address] , [facility] 9 09:34:27 Adult health examinat ion Completed 201305/31/2014 IMPRESSI ON: IMMUNIZA TION STATUS UTD WILL SCREEN BASED ON RISK FACTORS. REGULAR DENTAL CARE AND SEATBELT USE ADVISED. DISTRACT ED DRIVING DISCUSSE D. CERVICAL CANCER SCREENIN G UTD. ADVANCE DIRECTIV ES DISCUSSE D AND IN PLACE.; RECORDED 03/03/20 14 9:43AM BY CALEB HENRY MA, ANNOTATI ON/ADDEN DUM Angelo Ring MD [address] [address], [place], [address] , [facility] 6 21:33:38 Celiac disease 831956468 Completed 201304/02/2017 STORY: BLOOD TESTS NEGATIVE FOR CELIAC Angelo Ring MD [address] [address], [place], [address] , [facility] 7 10:21:10 Obesity 320278670 Completed 201304/02/2017 IMPRESSI ON: POTENTIA L ADVERSE HEALTH CONSEQUE NCES DISCUSSE D. INCREASE D PHYSICAL ACTIVITY AND APPROPRI ATWE DIETARY CHANGES ADVISED. ; RECORDED 03/03/20 14 9:43AM BY CALEB HENRY MA, OFFICE VISIT Cherie Hannah PA-C [address] [address], [place], [address] , [facility] 3 15:22:51 Chronic sinusiti s 34257812 Completed 201305/31/2014 IMPRESSI ON: C/W POST VIRAL SECONDAR Y BACTERIA L PROCESS. CALL INB/WORS E.; RECORDED 03/03/20 14 9:43AM BY CALEB HENRY MA, ALEX ON/PINEDA Ring MD [address] [address], [place], [address] , [facility] 6 21:33:38 Vitamin D deficien cy 19327106 Active 2013 Not Available [facility] 3 13:43:23 Adult health examinat ion Completed 201306/27/2014 IMPRESSI ON: IMMUNIZA TION STATUS UTD WILL SCREEN BASED ON RISK FACTORS. REGULAR DENTAL CARE AND SEATBELT USE ADVISED. DISTRACT ED DRIVING DISCUSSE D. CERVICAL CANCER SCREENIN G UTD. ADVANCE DIRECTIV ES DISCUSSE D AND IN PLACE.; RECORDED 03/03/20 14 9:43AM BY CALEB HENRY MA, ALEX ON/PINEDA Ring MD [address] [address], [place], [address] , [facility] 6 21:33:38 Chronic sinusiti s 10029593 Completed 201306/27/2014 IMPRESSI ON: C/W POST VIRAL SECONDAR Y BACTERIA L PROCESS. CALL INB/WORS E.; RECORDED 03/03/20 14 9:43AM BY CALEB HENRY MA, ALEX ON/PINEDA Ring MD [address] [address], [place], [address] , [facility] 6 21:33:38 Divertic ulitis of colon 254384905 Completed 201404/02/2017 Angelo Ring MD [address] [address], [place], [address] , [facility] 7 10:20:23 Macrocyt osis 858543735 Active 2018 Not Available [facility] 3 13:43:23 Irritabl e bowel syndrome 50880455 Active 2018 Not Available [facility] 3 13:43:23 Recurren t major depressi on in partial remissio n 81280720 Active 2018 Not Available [facility] 3 13:43:23 Essentia l hyperten lucia 03767869 Active 2019 Not Available [facility] 3 13:43:24 Anti-nuc lear factor detected 669172043 Active 2020 Not Available [facility] 3 13:43:23 Herpes zoster 0452706 Active 2020 Not Available [facility] 3 13:43:23 History of SARS-CoV -2 12028703827 5396939 Active 2021 Not Available [facility] 3 13:43:23 Tinea pedis 5327095 Active 2021 Not Available [facility] 3 13:43:24 Generali zed anxiety disorder 25756758 Active 2021 Not Available [facility] 3 13:43:23 Prediabe rema 999982523 Active 2022 Not Available [facility] 3 13:43:24 Hyperlip idemia 47710433 Active 2022 Not Available [facility] 3 13:43:23 Pain of right heel 27694405509 96784 Completed 202208/05/2023 Angelo Ring MD [address] [facility] [address], [place], [address] , [facility] 3 13:48:40 Candidia sis of vagina 53988248 Completed 202208/05/2023 Angelo Ring MD [address] [facility] [address], [place], [address] , [facility] 3 13:35:30 Snoring 78716716 Completed 202208/05/2023 Angelo Ring MD [address], [place], [address] , [facility] 3 13:48:55 Obstruct kathy sleep apnea of adult 97863189869 03 Active 2022 Not Available [facility] 3 13:43:23 Morbid obesity 074366337 Active 2022 Not Available [facility] 3 13:43:23 Family history of malignan t melanoma 636628450 Active 2023 Angelo Ring MD [address], [place], [address] , [facility] 4 17:18:08 Body mass index 40+ - severely obese 147276792 Active 2023 Angelo Ring MD [address], [place], [address] , [facility] 4 09:39:33 Venous insuffic iency of lower limb 365232668 Active 2024 Angelo Ring MD [address], [place], [address] , [facility] 5 14:24:45 Acute pharyngi tis 010061140 Completed 202402/22/2025 Angelo Ring MD [address], [place], [address] , [facility] 5 15:16:34 Moderate dehydrat ion 89949067495 05 Completed 202402/22/2025 Angelo Ring MD [address], [place], [address] , [facility] 5 15:16:25 Food-bor ne gastroen teritis 257307753 Completed 202402/22/2025 Angelo Ring MD [address], [place], [address] , [facility] 5 15:16:36 Axillary hidraden itis suppurat noah 416846455 Completed 202405/26/2025 Angelo Ring MD [address], [place], [address] , [facility] 5 10:50:03 Pain of knee region 1906469010 Active 2024 Angelo Ring MD [address], [place], [address] , [facility] 5 16:11:12 Steatoti c liver disease 458553448 Active 2024 Angelo Ring MD [address], [place], [address] , [facility] 5 09:22:22 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 27442797436 104860 Active 2024 Angelo Ring MD [address], [place], [address] , [facility] 5 12:58:57 Disorder of thymus gland 00757394 Completed 202409/08/2025 Angelo Ring MD [address], [place], [address] , [facility] 5 09:11:11 Benign adenomat ous neoplasm 716773703 Active 2024 Angelo Ring MD [address], [place], [address] , [facility] 5 15:48:13 Pain of left shoulder region Active 2024 Angelo Ring MD [address] [address], [facility] [place], [address] , [facility] 5 09:01:02 Problem Notes None recorded. Procedures Surgical History Date Name Laterality Status Provider Name and Address Organization Details Recorded Time 08/11/20 25 total thymectomy completed Angelo Ring MD [address] [address], [place], [address], [facility] 08/17/2025 13:07:18 06/21/20 25 colonoscopy completed Angelo Ring MD [address] [address], [place], [address], [facility] 09/08/2025 08:54:04 01/06/20 25 Most Recent Mammogram completed Lizeth Herrera [facility] 01/06/2025 11:27:53 12/22/19 24 Mammogram both breasts completed Lizzeth Jack MA [facility] 09/07/2024 09:03:27 12/20/19 23 Mammogram both breasts completed Lizzeth Jack MA [facility] 08/05/2023 13:06:43 12/05/19 22 Mammogram Screening completed Liyah Sheikh [facility] 12/28/2021 14:01:53 03/19/20 20 Date of Last Pap Smear completed Cassia Mcpherson MA [facility] 07/06/2020 15:07:41 06/21/20 18 Cholecystectomy completed Angelo Ring MD [address] [address], [place], [address], [facility] 06/23/2018 10:10:03 12/26/19 16 Gastrointestinal Surgery completed Angelo Ring MD [address] [address], [place], [address], [facility] 12/27/2015 08:41:03 03/15/20 11 Date of Last Colonoscopy completed Cassia Mcpherson MA [facility] 03/28/2016 08:32:59 03/15/20 11 Colonoscopy completed Cassia Mcpherson MA [facility] 03/28/2016 08:33:00 Dxa bone density study completed Cassia Mcpherson MA [facility] 04/02/2017 09:39:01 Imaging Results None recorded. Procedure Notes None recorded. Medical Equipment None Reported. Allergies Allergen ID Allergen Name Allergen Category Reaction Reaction Severity Criticality Documentation Date Start Date Code Code System Note Provider Name and Address Organization Details Recorded Time 59044 Substance with sulfonami de structure and antibacte rial mechanism of action (substanc e) medicatio n hives moderate Not available 12/09/20142013 46292 8003 SNOMED REACT ION: AGNES Bautista Glen her [facility] 5 11:01:46 91119 acetamino phen / oxycodone medicatio n other mild Not available 12/09/2014 67742 3 RxNorm agita tion Angelo Ring MD [address], [place], [address], [facility] 5 08:52:25 06896 Dilaudid medicatio n rash mild Not available 01/03/20162015 95593 3 RxNorm hives ,rash , itchi ness, repor rafia from pt ED visit Flori her [facility] 6 08:13:55 54753 erythromy morro medicatio n other moderate Not available 03/28/20162015 4053 RxNorm MG flare Angelo Ring MD [address], [place], [address], [facility] 6 09:06:27 73468 amoxicill in medicatio n abdominal pain severe Not available 02/01/20192018 723 RxNorm CASEY Anderson [facility] 9 09:36:51 97901 Bactrim medicatio n Not available Not available Not available 02/28/2020 81158 9 RxNorm Gita Khushboo taina, [facility] 0 10:20:34 65735 cephalexi n medicatio n rash moderate Not available 12/24/2022 2231 RxNorm Lizzeth Forest MarcieKAYLI, [facility] 3 14:38:30 91782 bupropion Not available other mild Not available 12/24/2022 74663 RxNorm eleva rafia BP Not Available [facility] 3 17:58:18 4228 clindamyc in hydrochlo ride medicatio n hives moderate Not available 05/31/20142013 24805 RxNorm KAYLI Baron, [facility] 6 08:28:39 4229 Paxil medicatio n Not available Not available Not available 05/31/20142013 69466 8 RxNorm REACT ION: ECCHY SIMON Ring MD [address] [facility] [address], [place], [address], [facility] 7 10:12:34 Medications Name Sig Start Date [...] active Not Available Not Available Not Available celecoxib 200 mg capsule TAKE 1 CAPSULE BY MOUTH TWO TIMES A DAY 09/08 completed Not Available Not Available Not Available [...] N; Not Available Not Available Not Available CombiPatc h 0.05 mg-0.14 mg/24 hr transderm al APPLY 1 PATCH TOPICALL Y EVERY FRIDAY AND FRIDAY FOR 28 DAYS active Not Available Not Available No t Available alprazola m 1 mg tablet TAKE [...] mg tablet TAKE 1 TABLET BY MOUTH 2 TIMES A DAY FOR 30 DAYS 09/08 completed Not Available Not Available Not Available adapalene 0.1 % topical cream 04/02 [...] pyridosti gmine bromide 60 mg tablet TAKE 1 HALF-TAB LET BY MOUTH 6 TIMES DAILY. MAY TAKE EXTRA 1-2 DOSES DAILY NEEDED FOR DIPLOPIA active Not Available Not [...] completed Not Available Not Available Not Available gabapenti n 300 mg capsule TAKE 1 CAPSULE BY MOUTH THREE TIMES A DAY 09/08 completed Not Available Not Available Not Available [...] completed RECORDED 11/04/20 12 2:36PM BY DENISSE OHANG, MEDICATI ON AUTO-JANET CTIVATIO N; Not Available Not Available Not Available lisinopri l 10 mg-hydroc hlorothia zide 12.5 mg tablet Take 1 tablet every day by oral route. 06/29 completed Not Available Not Available Not Available levofloxa morro 500 mg tablet Take 1 tablet every 24 hours by oral route for 7 days. 2014 active Not Available Not Available Not Avai lable estradiol 0.01% (0.1 mg/gram) vaginal cream PLEASE SEE ATTACHED FOR DETAILED DIRECTIO NS active Not Available Not Available No t Available levofloxa morro 750 mg tablet TAKE 1 [...] Relief 50 mcg/actua tion nasal spray,nacho pension [place] 1 spray every day by intranas al [...] Updated DateTime 5 156.85 cm 49.2 kg/m2 172809. 16 g 107 /min 97 % 97 % 98.2 [degF] 118/84 mm[Hg] Waqas atkins MA [facility] 5 10:17:47 Date Recorded Body height Body mass index (BMI) Body weight Heart rate Oxygen saturation Oxygen saturation in Arterial blood by Pulse oximetry Body temperature Systolic And Diastolic Provider Name and Address Organization Details Last Updated DateTime 5 156.85 cm 50.9 kg/m2 938447. 49 g 81 /min 97 % 97 % 97.6 [degF] 132/89 mm[Hg] Lizzeth Jack MA [facility] 5 14:50:45 Date Recorded Body height Body mass index (BMI) Body weight Heart rate Oxygen saturation Oxygen saturation in Arterial blood by Pulse oximetry Body temperature Systolic And Diastolic Provider Name and Address Organization Details Last Updated DateTime 5 156.85 cm 49.8 kg/m2 916611. 94 g 97 /min 96 % 96 % 98.1 [degF] 130/86 mm[Hg] Lorenza grissom [facility] 5 14:55:35 Date Recorded Body height Body mass index (BMI) Body weight Oxygen saturation Oxygen saturation in Arterial blood by Pulse oximetry Heart rate Body temperature Systolic And Diastolic Provider Name and Address Organization Details Last Updated DateTime 5 156.85 cm 50.2 kg/m2 537993. 52 g 96 % 96 % 86 /min 98.3 [degF] 127/78 mm[Hg] Lacy Graham MA [facility] 5 10:10:10 Date Recorded Body height Body mass index (BMI) Body weight Heart rate Oxygen saturation Oxygen saturation in Arterial blood by Pulse oximetry Body temperature Systolic And Diastolic Systolic And Diastolic Provider Name and Address Organization Details Last Updated DateTime 5 156.85 cm 48.3 kg/m2 589244. 2 g 82 /min 96 % 96 % 98.3 [degF] 149/83 mm[Hg] 130/80 mm[Hg] Chantell Montiel MA [facility] 5 08:34:18 Social History Question Answer Notes LastModified by Organizat ion Details LastModified Time Tobacco Smoking Status Never Smoker Not Available [facility] 09/19/2020 03:36:39 Do You Have An Advance Directive? Yes HCP -Jacklyn, Kaela/Mauro Information not available 06/13/2023 Is Blood Transfusion Acceptable In An Emergency? Yes [id number] Information not available 09/19/2020 What Is Your Level Of Caffeine Consumption? Moderate Coffee [id number] Information not available 09/19/2020 How Much Tobacco Do You Chew? None [id number] Information not available 09/19/2020 What Type Of Diet Are You Following? REGULAR Information not available 07/15/2022 Which Illicit Or Recreational Drugs Have You Used? None [id number] Information not available 09/19/2020 Education Post Graduate Information not available 06/13/2023 Live Alone Or With Others? With Others 3 Partners (Jacklyn, Mauro), 3 Children, 2 Cats, 1 Dog Information not available 09/08/2025 Do You Take Precautions To Prevent Distracted [...] Date Of Your Most Recent Tobacco Screening? 09/08/2025 [email or web address] Information not available 09/08/2025 How Many Children Do You Have? 3 [id number] Information not available 09/19/2020 Do You Use Protection During Sex? No Information not available 07/08/2024 Do You Use Your Seat Belt Or Car Seat Routinely? Yes Information not available 07/15/2022 Seat Belts Used Routinely Yes Information not available 06/13/2023 Are You Sexually Active? Yes [id number] Information not available 09/19/2020 Smoke Alarm In Home Yes Information not available 06/13/2023 Do You Have Smoke And Carbon Monoxide Detectors In Your Home? Yes Information not available 07/15/2022 At What Age Did You Start Smoking Tobacco? 1 [id number] Information not available 09/19/2020 Are You Passively Exposed To Smoke? No Information not available 03/17/2015 How Much Tobacco Do You Smoke? No [id number] Information not available 09/19/2020 Do You Use Sunscreen Routinely? Yes [id number] Information not available 09/19/2020 How Many Years Have You Smoked Tobacco? 0 [id number] Information not available 09/19/2020 Sex: Unknown Functional Status Question Answer Note LastModified by Organizat ion Details LastModified Time Do you use any illicit or recreational drugs? No Information not available 06/13/2023 Do you or have you ever used any other forms of tobacco or nicotine? No Information not available 06/13/2023 What is your level of alcohol consumption? Occasional [email or web address] Information not available 08/05/2023 Do you or have you ever used smokeless tobacco? Never used smokeless tobacco [id number] Information not available 09/19/2020 Are you currently employed? Yes [employer] [id number] Information not available 09/19/2020 Are you able to walk independently without assistance or assistive devices? YESWOREST Information not available 06/13/2023 Are you able to care for yourself independently? 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 Information not available 04/05/2019 Do you or have you ever used [...] 09:07:20 Father Malignant neoplastic disease melano ma drosadorivera Not available 09/08/2025 08:20:03 Father Diabetes mellitus 40 [email or web address] Not available 11:29:04 Father Hypercholest erolemia awychowski Not available 03/28 09:07:20 Father Hypertensive disorder awychowski Not available 03/28 09:07:20 Father Minh thyroiditis drosadorivera Not available 09/08/2025 08:20:03 Father Disorder of thyroid gland [email or web address] Not available 11:29:04 Father Sleep disorder 50 [email or web address] Not available 11:29:04 Father Obesity 40 [email or web address] Not avail able 04/01/2023 11:29:04 Mother Hypercholest erolemia Not available 2021 10:59:46 Mother Hypertensive disorder awychowski Not available 03/28 09:07:20 Mother Diabetes mellitus 40 [email or web address] Not available 11:29:04 Mother Obesity 40 [email or web address] Not avail able 04/01/2023 11:29:04 Brother Well adult semaj Not a vailable 09/08/2025 08:20:03 Medical History Condition Response Gout N Other N Kidney Stones N Blood Diseases N Hyperthyroidism N Breast Cancer N COPD N Depression Y Lung Disease N Hypothyroidism Y Defects or [...] mcg/0.3 mL dose 1 completed Lizeth her [facility] 09/29/2023 09:57:53 COVID-19, mRNA, LNP-S, PF, 30 mcg/0.3 mL dose 1 nirav her [facility] 09/29/2023 09:57:53 COVID-19, mRNA, LNP-S, PF, 30 mcg/0.3 mL dose 1 nirav her [facility] 09/29/2023 09:57:53 COVID-19, mRNA, LNP-S, PF, 30 mcg/0.3 mL dose 1 completed Lizeth Herrera null, [facility] 09/29/2023 09:57:53 Influenza, MDCK, quadrivalent, PF 1 completed Lizeth Herrera null, [facility] 09/29/2023 09:57:53 Tdap 9 completed Lizeth Herrera null, [facility] 09/29/2023 09:57:53 Influenza, split virus, quadrivalent, PF 8 completed Lizeth Herrera null, [facility] 09/29/2023 09:57:53 Influenza, split virus, quadrivalent, PF 0 completed Lizeth Herrera null, [facility] 09/29/2023 09:57:53 COVID-19, mRNA, LNP-S, PF, 100 mcg/0.5mL dose or 50 mcg/0.25mL dose 2 completed Lizeth Herrera null, [facility] 09/29/2023 09:57:53 Influenza, split virus, quadrivalent, PF 6 completed Lizeth Herrera null, [facility] 09/29/2023 09:57:53 Influenza, split virus, quadrivalent, PF 9 completed Lizeth Herrera null, [facility] 09/29/2023 09:57:53 Influenza, MDCK, quadrivalent, PF 2 completed Lizeth Herrera null, [facility] 09/29/2023 09:57:53 COVID-19, mRNA, LNP-S, bivalent, PF, 50 mcg/0.5 mL or 25mcg/0.25 mL dose 2 completed Lizeth Herrera null, [facility] 09/29/2023 09:57:53 COVID-19, mRNA, LNP-S, PF, 50 mcg/0.5 mL 3 completed Lizeth her, [facility] 09/29/2023 09:57:53 Influenza, MDCK, trivalent, PF 4 completed KAYLI Hollingsworth, [facility] 09/07/2024 08:52:06 COVID-19, mRNA, LNP-S, PF, mina-sucrose, 30 mcg/0.3 mL 4 completed KAYLI Hollingsworth, [facility] 09/07/2024 08:52:06 Influenza, MDCK, trivalent, PF 5 completed KAYLI Laureano, [facility] 09/08/2025 08:26:14 COVID-19, mRNA, LNP-S, PF, mina-sucrose, 30 mcg/0.3 mL 5 completed KAYLI Laureano, [facility] 09/08/2025 08:26:14 Tdap 9 completed Lizeth her, [facility] 09/29/2023 09:57:53 influenza, seasonal, intradermal, preservative free 3 completed Lizeth her, [facility] 09/29/2023 09:57:53 Influenza, split virus, quadrivalent, PF 3 completed Angelo Ring MD [address], [address] 08/05/2023 13:57:35 Past Encounters Encounter ID Performer Location Encounter Start Date Encounter Closed Date Diagnosis/Indication Diagnosis SNOMED-CT Code Diagnosis ICD10 Code Diagnosis IMO Codes Diagnosis Note [id number] [facility] [address] [facility] [address] [place] [address] 10/30/2012 00:00:00 [id number] autoEComm erce [address] [facility] [address] [place] [address] 12/17/2012 00:00:00 [id number] auto[facility] erce [address] [facility] [address] [place], [place] [address] 01/28/2013 00:00:00 [id number] auto[facility] erce [address] [facility] [address] [place], [place] [address] 05/21/2013 00:00:00 [id number] auto[facility] erce [address] [facility] [address] [place], [place] [address] 02/24/2014 00:00:00 [id number] [facility] erce [address] [facility] [address] [place], [place] [address] 03/03/2014 00:00:00 [id number] ADAM Hoang Main Office [address] [facility] [address] [place] [address] 11/29/2014 14:07:45 11/29/2014 14:55:38 Adnexal tenderness 166581697 Acute abdomen 3726118 rebo und tenderness and fever. most tenderness seems to be adnexal. To ER for either CT ab/pelvis or transvag u/s. she will take herself to ER. high risk condition with threat to life [id number] Angelo Ring MD Main Office [address] [address] [place], [place] [address] 12/09/2014 08:01:30 12/09/2014 08:56:51 Diverticulitis of colon 902012380 Responding well to therapy which patient seems to be tolerating well. Will complete course and implement diverticul osis dietary modificati ons. If recurs may need further evaluation /intervent ion. [id number] ADAM Hoang Main Office [address] [facility] [address] [place] [address] 02/15/2015 09:48:55 02/15/2015 10:33:32 Cough 57130472 suspect bacterial infection given the new onset fever after 2 wks of sxs. pneumonia is possible but lung exam nl. sinusitis also possible since getting bloody rhinorrhea . will treat with coverage for both. she will call in 5 days if not improving and we will do a CXR [id number] Angelo Ring MD Main Office [address] [facility] [address] [place] [address] 03/17/2015 13:57:14 03/17/2015 15:19:51 Adult health examination 439408284 Immunizati on status utd, flu advised in the Fall. Cervical cancer screening utd. Regular dental and ophtho care advised as well as seatbelt and sunscreen use. Distracted driving discussed. Advance directives in place. Body mass index 30+ - obesity 360980093 Pain of mu ltiple joints 79648357 Has history of Lyme s/p tx. Now episodic flares of joint pain in the context of other autoimmune disease. Will check labs and consult rheum to rule out inflammato ry vs autoimmune joint disease. Minh thyroiditis 81552258 Followed by endo. Will check labs. Mixed anxi ety and depressive disorder 883676742 Suspect this might be playing into some of her symptoms. Will reassess at f/u. [id number] Essence sosa MD Main Office [address] [address] [place] [address] 05/30/2015 14:03:59 05/30/2015 15:06:20 Abdominal pain 09233329 most likely diverticul itis by hx and [...] 7 months in such a young person. [id number] Essence sosa MD Main Office [address] [facility] [address] [place] [address] 06/01/2015 11:25:30 06/01/2015 11:52:16 Diverticulitis of colon 868020399 much better after 48 hours of abx, did not do CT scan and not needed at this time, any worsening pt needs to return. [id number] Angelo Ring MD Main Office [address] [facility] [address] [place] [address] 06/22/2015 14:07:00 06/22/2015 15:04:05 Diverticulitis of colon 205228017 Given recurrence will ask surgery for opinion on whether resection is indicated. Mixed anxi ety and depressive disorder 273127148 Improved, without meds. Will monitor. Minh thyroiditis 63818904 Will assume med prescribin g. [id number] Angelo Ring MD Main Office [address] [facility] [address] [place] [address] 07/11/2015 12:42:00 07/11/2015 13:32:02 Diplopia 82058072 Exam unremarkab le. Will image to look for evidence of gliosis/MS vs other brainstem lesions vs atypical migraine, vs recurrent lyme. Needs ophtho eval for more thorough fundoscopi c examinatio n. Will start with labs and depending on whether symptoms persist and imaging results neuro referral would be next step. Floaters i n visual field 373800107 Headache 69138502 [id number] Cherie Camden WOODS Main Office [address] [facility] [address] [place] [address] 10/20/2015 13:24:01 10/20/2015 14:01:53 Diverticulitis of colon 585197003 K57.32 3 rd episode of acute diverticul itis. Will try to manage outpatient ly. Do STAT CBC with diff. If high, will ask her to go to the ER. PT. needs clear liquid diet and will strt on Flagyl and Levaquin. If no improvemen t in 24 hrs or high or worse , recommende d to go to the ER immediatel y. [id number] Angelo Ring MD Main Office [address] [facility] [address] [place] [address] 12/07/2015 08:06:46 12/07/2015 08:52:55 Diverticulitis of colon 230103433 K57.32 Scheduled for surgery. Minh thyroiditis 21 013244 E06.3 Will assume med prescribin g and monitoring . Needs infl uenza immunization 094278747 Z23 Myasthenia gravis 212521 04 G70.00 Immunology referral generated. Body mass index 30+ - obesity 878841505 Z68.38 Will check fasting labs today. [id number] Angelo Ring MD Main Office [address] [address] [place] [address] 01/02/2016 10:23:43 01/16/2016 11:46:47 [id number] Angelo Ring MD Main Office [address] [address] [place] [address] 03/28/2016 08:05:39 03/28/2016 09:29:39 Adult health examination 451792456 Z00.00 Immunizati on status utd, flu advised in the Fall. Cervical cancer screening utd. Regular dental and ophtho care advised as well as seat belt and sunscreen use. Distracted driving discussed. Advance directives in place. Body mass index 30+ - obesity 841727828 Z68.36 Minh thyroiditis 21 586490 E06.3 Biochemica lly and clinically euthyroid. Continue current dose and follow labs. Hyperglycemia 75875354 R 73.9 Mixed anxi ety and depressive disorder 697240500 F41.8 Improved, without meds. Seeing therapist. will monitor. [id number] Cherie Hannah PA-C Main Office [address] [address] [place] [address] 01/14/2017 08:40:56 01/14/2017 09:24:29 Acute conjunctivitis 30748782 H10.31 [id number] Angelo Ring MD Main Office [address] [address] [place] [address] 04/02/2017 09:26:44 04/02/2017 10:34:49 Adult health examination 056763458 Z00.01 Immunizati on status utd, flu advised in the Fall. Cervical cancer screening utd. Regular dental and ophtho care advised as well as seat belt and sunscreen use. Distracted driving discussed. Advance directives in place. Myasthenia gravis 999525 04 G70.00 Well controlled and followed by neuro. Body mass index 30+ - obesity 928895543 Z68.36 Increased frequency of urination 115193154 R35.0 Info provided on IC as I suspect this is the issue. Pt will call for urology referral if symptoms worsen/kwame nge. [id number] Angelo Rnig MD Main Office [address] [address] [place] [address] 04/03/2018 08:22:48 04/03/2018 09:21:03 Adult health examination 284585938 Z00.00 Immunizati on status utd, flu advised in the Fall. Cervical cancer screening utd. Regular dental and ophtho care advised as well as seat belt and sunscreen use. Distracted driving discussed. Advance directives in place. Myasthenia gravis 151810 04 G70.00 Well controlled and followed by neuro. Body mass index 30+ - obesity 093637286 Z68.36 Minh thyroiditis 21 759191 E06.3 Biochemica lly and clinically euthyroid. Continue current dose and follow labs. Vitamin D deficiency 347 09456 E55.9 WIll confirm adequate supplement ation. [id number] Angelo Ring MD Main Office [address] [address] [place] [address] 06/19/2018 14:32:25 06/19/2018 15:29:15 Sprain of jaw 94809488 S03.40XA Mouth guard, prn NSAID. Call dentist inb/worse. [id number] Angelo Ring MD Main Office [address] [address] [place] [address] 06/23/2018 08:44:23 06/23/2018 10:11:04 [id number] Angelo Ring MD Main Office [address] [address] [place] [address] 09/03/2018 14:32:34 09/03/2018 14:43:41 Needs influenza immunization 592812497 Z23 [id number] Angelo Ring MD Main Office [address] [address] [place] [address] 01/29/2019 10:50:49 01/29/2019 11:48:59 Acute pharyngitis 450061560 J02.9 Given symptom score and recent exposure will cover for strep despite negative rapid. Supportive tx advised as well. Will d/c abx if culture is negative. Call inb/worse or if new symptoms develop. Acute vaginitis 11788113 N76.0 Often an issue with abx for her. Rx provided in case. [id number] Angelo Ring MD Main Office [address] [facility] [address] [facility] [place] [address] 04/05/2019 14:03:43 04/05/2019 15:27:44 Adult health examination 624357413 Z00.00 Immunizati on status updated, flu advised in the Fall. Cervical cancer screening utd. Regular dental and ophtho care advised as well as seat belt and sunscreen use. Distracted driving discussed. Advance directives in place. Administra tion of viral vaccine 05639356 Z23 Screening for malignant neoplasm of breast 042733008 Z12.39 Myasthenia gravis 717410 04 G70.00 Well controlled and followed by neuro. Body mass index 30+ - obesity 369818041 Z68.37 Minh thyroiditis 21 779216 E06.3 Biochemica lly and clinically euthyroid. Continue current dose and follow labs. Vitamin D deficiency 347 62944 E55.9 WIll confirm adequate supplement ation. Recurrent major depression in partial remission 48706323 F33.41 Symptoms are worse/limi ting. Will see if buproprion is tolerated/ effective. Macrocytosis 079094979 D 75.89 Will screen for nutritiona l deficienci es. Hypercholesterolemia 136 96715 E78.00 Based on current CVD risk score will work on TLC and plan to monitor. Left flank pain 79264307 9 R10.9 Start eval with UA and consider imaging depending on symptom evolution and test results. Impaired f asting glycemia 434095648 R73.01 Low CHO, regular exercise and weight loss advised. Obesity 760348289 E66.9 [id number] Angelo Ring MD Main Office [address] [facility] [address] [place] [address] 05/13/2019 14:41:57 05/13/2019 15:25:19 Recurrent major depressive episodes, in full remission 152777240 F33.42 Responding well to low dose buproprion . Back to exercising and using mindfullne ss skills. Will continue current dose for now. Call with any problems. Vitamin D deficiency 347 31714 E55.9 Will d/c supplement [id number] Angelo Ring MD Main Office [address] [place] [address] 09/14/2019 12:37:13 09/14/2019 13:28:14 Needs influenza immunization 003317124 Z23 Major depr ession single episode, in partial remission 71875368 F32.4 Responding well to low dose buproprion . Planning to resume exercise. Will try alternatin g 300/150mg tablets and see if tolerated/ effective. [id number] Angelo Ring MD Main Office [address] [address] [place] [address] 11/05/2019 08:32:31 11/05/2019 09:43:46 Recurrent major depression in partial remission 11008428 F33.41 Overall doing well on reduced buproprion dose but not in a position to reduce further at this point. Will monitor. Will resume melatonin for sleep. [id number] Angelo Ring MD Main Office [address] [address] [place] [address] 02/28/2020 09:22:21 02/28/2020 13:24:40 Recurrent major depression in partial remission 29684836 F33.41 Overall doing well on reduced buproprion dose but not in a position to reduce further at this point. Will monitor. Impaired f asting glycemia 253149757 R73.01 Low CHO, regular exercise and weight loss advised. Due for f/u labs. Hypercholesterolemia 136 11020 E78.00 Due for reassessme nt, will discuss mgmt based on CVD risk score. Vitamin D deficiency 347 66848 E55.9 Will reassess on lower supplement dose. [id number] Angelo Ring MD Main Office [address] [address] [place] [address] 06/28/2020 14:04:47 06/28/2020 15:12:18 Hypertensive disorder 63558131 I10 Likely diet and weight related, but thyroid issues need to be considered as well. Will screen for end organ damage and start dual medication therapy. Pt advised of common/ser ious potential side effects and to call with any problems after starting. Will go for her fasting labs today. Titrate dose at f/u as tolerated to goal BP <130/90. Minh thyroiditis 21 898968 E06.3 Biochemica lly and clinically euthyroid. Continue current dose and follow labs. [id number] Angelo Ring MD Main Office [address] [facility] [address] [place] [address] 07/06/2020 14:50:52 07/06/2020 15:58:04 Adult health examination 025870832 Z00.00 Immunizati on status updated, flu advised in the Fall. Cervical cancer screening utd. Regular dental and ophtho care advised as well as seat belt and sunscreen use. Distracted driving discussed. Advance directives in place. Essential hypertension 03128922 I10 Well controlled on low dose ACEI. Continue as is for now. Screening for malignant neoplasm of breast 584111438 Z12.39 Myasthenia gravis 360346 04 G70.00 Stable and followed by neuro. Obesity 251336363 E66.9 Body mass index 30+ - obesity 689247340 Z68.39 Minh thyroiditis 21 283352 E06.3 Biochemica lly and clinically euthyroid. Continue current dose and follow labs. Vitamin D deficiency 347 63921 E55.9 Continue current dose. Recurrent major depression in partial remission 62302507 F33.41 Improved. Continue current regimen. Hypercholesterolemia 136 44723 E78.01 Based on current CVD risk score will work on TLC and plan to monitor. Impaired f asting glycemia 235508912 R73.01 Low CHO, regular exercise and weight loss advised. [id number] Angelo Ring MD Main Office [address] [address] [place] [address] 09/05/2020 13:24:59 09/05/2020 13:59:04 Essential hypertension 84330832 I10 Well controlled on low dose ACEI. Continue as is for now. May decrease if BP goes down off of SNRI. Recurrent major depression in partial remission 49389296 F33.41 Will try slow wean and monitor symptoms. Call with any problems. Needs infl uenza immunization 010965394 Z23 [id number] Angelo Ring MD [facility] [address] [facility] [address] [place] [address] 10/13/2020 08:10:30 10/13/2020 13:15:17 Essential hypertension 07850142 I10 Fair control based on reported home numbers. Wants to work on Na restrictio n and weight loss. Will monitor. Recurrent major depression in partial remission 00348193 F33.41 Symptoms have increased since stopping buproprion but overall coping well and heading in the right direction. Will monitor with therapy and no medication for now. Call if any problems. [id number] Angelo Ring MD [facility] [address] [place], [place] [address] 02/23/2021 08:38:27 02/23/2021 09:43:57 Essential hypertension 02087090 I10 Fair control based on reported home numbers. Will titrate ACEI dose and monitor home BP. Advised to go for labs 2-3 weeks after dose increase. Healthy diet and exercise habits again discussed/ encouraged . Recurrent major depression in partial remission 51776699 F33.41 Symptoms remain since stopping buproprion but overall coping well and heading in the right direction. Will monitor with therapy and no medication for now. Call if any problems. Impaired f asting glycemia 373471252 R73.01 Low CHO, regular exercise and weight loss advised. Has been normal last 2 assessment s. Will remove diagnosis if normal this time around., [id number] Erasmo Sandoval MD [facility] [address] [place], [place] [address] 03/08/2021 08:40:17 03/08/2021 11:56:11 Headache 71261856 R51.9 Multifacto rial: ( stress, kids school [...] already ordered by PCP. Minh thyroiditis 21 370525 E06.3 Myasthenia gravis 640129 04 G70.00 Essential hypertension 72064926 I10 Recent increase in lisinopril dosing which has improved her BP, still in normal range, do not suspect med is the cause of headache. continue to monitor BP. [id number] Angelo Ring MD Main Office [address] [place] [address] 04/26/2021 12:40:23 04/26/2021 13:13:55 Contusion of right foot 6832426780 1556076 S90.31XA Most likely soft tissue injury is the cause of her symptoms, but given persistent point tenderness will image to rule out fracture. Refer to ortho if positive. [id number] Angelo Ring MD Main Office [address] [address] [place] [address] 07/12/2021 10:55:07 07/12/2021 12:03:32 Adult health examination 031659171 Z00.00 Immunizati on status updated, flu advised in the Fall. Will screen based on risk factors. Cervical cancer screening utd, pt to have mammo done this year. Regular dental and ophtho care advised as well as seat belt and sunscreen use. Distracted driving discussed. Advance directives in place. Essential hypertension 97220925 I10 Well controlled , continue current regimen. Screening for malignant neoplasm of breast 381281030 Z12.39 Screening for malignant neoplasm of cervix 668203340 Z12.4 Hepatitis C screening 41 2202109 Z11.59 Myasthenia gravis 888421 04 G70.00 Stable and followed by neuro. Obesity 659640886 E66.9 Minh thyroiditis 21 230997 E06.3 Biochemica lly and clinically euthyroid. Continue current dose and follow labs. Vitamin D deficiency 347 99762 E55.9 Will verify adequate dosing. Recurrent major depression in partial remission 54344795 F33.41 Improved. Continue current regimen. Hypercholesterolemia 136 53578 E78.01 WIll reassess and manage based on CVD risk score. Impaired f asting glycemia 636595725 R73.01 Low CHO, regular exercise and weight loss advised. WIll monitor. Bilateral knee pain 1187 462526 6855635 M25.561 M25.562 Likely OA but with comorbid autoimmune disease will screen for reactive arhtritis. Body mass index 40+ - severely obese 661198048 E66.01 Z68.41 Adjustment disorder with anxious mood 12106090 F43.22 Will monitor with SSRI trial. [id number] Angel[facility] [address] [facility] [address] [place] [address] 08/17/2021 08:33:56 08/21/2021 09:12:13 Recurrent major depression in partial remission 03032024 F33.41 Improved but still symptomati c. Still following with therapist. Will continue current dose for now. Herpes zoster 1961198 B0 2.9 Diagnosed at and responding to valacyclov ir without significan t pain symptoms. Will call with any problems. [id number] Byron Rodrigues MD [facility] [address] [facility] [address] [place] [address] 02/23/2022 08:23:04 02/25/2022 10:00:48 COVID-19 929019901 U07.1 Motrin or Tylenol OTC, not to [...] tmax 103 > go to nearest ED [id number] Angelo Ring MD Main Office [address] [facility] [address] [place] [address] 07/15/2022 10:59:17 07/15/2022 12:27:18 Adult health examination 326970637 Z00.00 Immunizati on status updated, flu advised in the Fall. Will screen based on risk factors. Cervical cancer screening utd, pt to have mammo done this year. Regular dental and ophtho care advised as well as seat belt and sunscreen use. Distracted driving discussed. Advance directives in place. Recurrent major depression in partial remission 72905557 F33.41 Improved but still symptomati c. Still following with therapist. Will continue current dose for now. Impaired f asting glycemia 677074563 R73.01 Low CHO, regular exercise and weight loss advised. Will monitor. Essential hypertension 48984809 I10 Well controlled , continue current regimen. Screening for malignant neoplasm of breast 685974325 Z12.39 Screening for malignant neoplasm of cervix 776651483 Z12.4 Body mass index 40+ - severely obese 306444438 E66.01 Z68.42 Hypercholesterolemia 136 12094 E78.01 Will reassess and manage based on CVD risk score. Vitamin D deficiency 347 53554 E55.9 Level has been perfect on current dose. Contiue as is. Minh thyroiditis 21 378143 E06.3 Biochemica lly and clinically euthyroid. Continue current dose and follow labs. Additional labs ordered for the prescriber of her throid supplement s. Myasthenia gravis 344647 04 G70.00 Stable and followed by neuro. Luis Miguel cano 8810647 B35. 3 [id number] Angelo Ring MD [facility] [address] [facility] [address] [place] [address] 08/16/2022 08:17:39 08/16/2022 09:29:36 Recurrent major depression in partial remission 32836365 F33.41 Improved but still symptomati c. Will titrate buproprion dose and reassess in 3-4 weeks. Persistent cough 4276178 02 R05.3 Will rule out pneumonia. If CXR positive or if symptoms worsen/sec ond sickening occurs would start her on a course of doxy. May need to consider ACEI induced cough but this sounds more inflammato ry. Generalize d anxiety disorder 70715962 F41.1 Buproprion seems to help. Not using any anxiolytic s. Wonder if there is a component of OCD. [id number] Angelo Ring MD Main Office [address] [facility] 207 [facility] [place] [address] 10/31/2022 12:35:45 10/31/2022 13:21:07 Generalized anxiety disorder 08200205 F41.1 Buproprion with low dose escitalopr am seems to be helping. Not using any anxiolytic s. Wonder if there is a component of OCD. Consider weaning off of SSRI if remains well controlled . Fever 657601700 R50.9 With exposure and fever here will screen for likely possible viral proccesees in community and more specifical ly at her home. Essential hypertension 13116537 I10 Not well controlled today and not sure if it is related to febrile illness or buporoprio n. Will reassess after acute issues resolve. [id number] Erasmo Sandoval MD Main Office [address] [address] [place] [address] 11/22/2022 13:58:23 11/22/2022 14:45:50 Essential hypertension 82773382 I10 will check blood work and urine, and wean off wellbutrin . ut back on sodium, hydration, rest, take lisinopril as directed. F/U as scheduled in Dec.EKG NSR, no acute abnormalit y Anxiety 27885197 F41.9 Cut wellbutrin back to 150mg daily x 7 days. then 150mg every other day for 7 days, if needed may extend to take 150mg every 3rd day then stop med. Prediabetes 709695649 R7 3.03 Hyperlipidemia 89009662 E78.5 Pain of right heel 15980 12420 075275 M79.671 recommend keeping heels clean and dry, use mometasone at bedtime x 7 days then start flexitol heel balm daily. Candidiasis of vagina 72 956740 B37.31 will rx diflucan as she is on abx and gets yeast frequently . [id number] [facility] [address] [address] [place] [address] 12/07/2022 16:43:59 12/09/2022 10:40:33 Eruption 482640693 R21 Possible drug eruption to keflex. [id number] Angelo Ring MD Main Office [address] [address] [place] [address] 12/24/2022 14:31:04 12/24/2022 15:30:08 Essential hypertension 89886051 I10 Well controlled on ACEI, tolerating therapy continue current dose. Liver enzy mes level above reference range 631443598 R74.01 Will reassess and evaluate further if persistent . [id number] Angelo Ring MD Main Office [address] [address] [place] [address] 01/16/2023 09:03:04 01/16/2023 10:05:21 Generalized anxiety disorder 79199520 F41.1 Obesity 515146444 E66.9 Essential hypertension 10896300 I10 Well controlled on ACEI, tolerating therapy continue current dose. Needs to be monitored on stimulant therapy. Attention deficit hyperactivity disorder, combined type 66282716 F90.2 Will trial a course of stimulant therapy to help augment SSRI and monitor BP/symptom s. Titrate as tolerated to goal symptoms control. If effective transition to ER formulatio n. Recurrent major depression in partial remission 34030998 F33.41 Worse, reluctant to titrate SSRI further given her weight issues. [id number] Angelo Ring MD [facility] [address] [facility] [address] [place] [address] 02/07/2023 13:10:43 02/07/2023 13:56:06 Generalized anxiety disorder 67982309 F41.1 Not well controlled but secondary to stressors which are hopefully going to be mitigate soon. Recurrent major depression in partial remission 92933249 F33.41 Worse, reluctant to titrate SSRI further given her weight issues. Attention deficit hyperactivity disorder, predominantly inattentive type 38801782 F90.0 See if atomoxetin e helps and is better tolerated. Essential hypertension 18367655 I10 Well controlled on ACEI, tolerating therapy continue current dose. Snoring 94234120 R06.83 Based on increasing weight and other symptoms sleep testing to r/o CHRIS is appropriat e. [id number] Angelo Ring MD Main Office [address] [place] [address] 04/01/2023 11:19:49 04/01/2023 12:38:49 Generalized anxiety disorder 06075355 F41.1 Not well controlled but secondary to stressors which are hopefully going to be mitigate soon. Snoring 86442863 R06.83 Referral being coordinate d. Impaired f asting glycemia 726321511 R73.01 Low CHO, regular exercise and weight loss advised. Will monitor. Recurrent major depression in partial remission 34385360 F33.41 Worse, reluctant to titrate SSRI further given her weight issues. Ondina 4 weeks since last dose increase. Will monitor. Essential hypertension 96474116 I10 Well controlled on ACEI, tolerating therapy continue current dose. Minh thyroiditis 21 824950 E06.3 Biochemica lly and clinically euthyroid. Continue current dose and follow labs. Additional labs ordered for the prescriber of her throid supplement s. [id number] Angelo Ring MD [facility] [address] [facility] [address] [place] [address] 05/02/2023 08:32:28 05/06/2023 08:24:01 Generalized anxiety disorder 18703091 F41.1 Improved since escitalopr am dose titration. Will continue as is for now. Recurrent major depression in partial remission 97022248 F33.41 Fair control/co ping better on escitalopr am. Will continue current dose. Obstructiv e sleep apnea of adult 8558290210 103 G47.33 Positive sleep study, no follow up available with sleep medicine until Jul. Pt is ok waiting. I would defer to them as her treatment plan will likely be ivis rowan Contact dermatitis 40168 004 L25.9 OTC cortisone helps somewhat. Will try higher potency for short term only. Body mass index 40+ - severely obese 449006804 E66.01 Z68.41 Member is 17 years of [...] or any other GLP-1 receptor agent. Prediabetes 402615865 R7 3.03 [id number] Angelo Ring MD [facility] [address] [facility] [address] [place] [address] 06/13/2023 08:26:00 06/13/2023 10:16:05 Generalized anxiety disorder 11535488 F41.1 Improved on escitalopr am dose titration, but virtually resolved with CHRIS therapy. Will try reducing lexapro dose. Morbid obesity 782784813 E66.01 Obstructiv e sleep apnea of adult 5238365379 103 G47.33 On CPAP, tolerating and complying well with it with dramatic impact on systemic symptoms. Prediabetes 010653724 R7 3.03 Will titrate GLP1 agonist dose and go up to 1mg in 4 weeks if continuing to do well. Recurrent major depression in partial remission 91003222 F33.41 Doing much better from a mod perspectiv e on CPAP and not happy with thi impact on libido. Wants to try reducing dose to 5mg daily. Will taper slowly [id number] Angelo Ring MD Main Office [address] [facility] [address] [place] [address] 08/05/2023 12:49:12 08/05/2023 14:02:15 Adult health examination 833503450 Z00.00 Immunizati on status updated, flu advised in the Fall. Will screen based on risk factors. Cervical cancer screening utd, pt to have mammo done this year. Regular dental and ophtho care advised as well as seat belt and sunscreen use. Distracted driving discussed. Advance directives in place. Needs infl uenza immunization 538713713 Z23 Body mass index 40+ - severely obese 238274510 E66.01 Z68.41 Member is 17 years of [...] agent. Recurrent major depression in partial remission 09071729 F33.41 Under much better control since starting CPAP Accidental ly self titrated her dose down to 5mg and doing well. Will stay there for now. Impaired f asting glycemia 147198684 R73.01 Low CHO, regular exercise and weight loss advised. Will monitor. Essential hypertension 07759274 I10 Well controlled , continue current regimen. Screening for malignant neoplasm of breast 678580399 Z12.39 Screening for malignant neoplasm of cervix 965865561 Z12.4 Hypercholesterolemia 136 85421 E78.01 Will reassess and manage based on CVD risk score. Vitamin D deficiency 347 97460 E55.9 Level has been perfect on current dose. Continue as is. Minh thyroiditis 21 506638 E06.3 Biochemica lly and clinically euthyroid. Continue current dose and follow labs. Additional labs ordered for the prescriber of her throid supplement s. Myasthenia gravis 858452 04 G70.00 Stable and followed by neuro. Abnormal g ait due to impairment of balance 836271824 R26.89 Prediabetes 819563893 R7 3.03 Will titrate GLP1 agonist dose and go up to 2mg in 4 weeks if continuing to do well. Obstructiv e sleep apnea of adult 4496025287 103 G47.33 On CPAP, tolerating and complying well with it with dramatic impact on systemic symptoms. [id number] Byron Rodrigues MD [facility] [address] [facility] [address] [place] [address] 09/22/2023 14:22:00 09/22/2023 15:45:04 Adverse reaction to drug 73580603 T50.905A Adverse reaction to 2 mg of [...] PCP as scheduled in November. Morbid obesity 449033354 E66.01 Clear benefit from use of GLP-1 despite no weight loss so far on Ozempic. See above. Prediabetes 016976908 R7 3.03 Continue strict low calorie low carb diet and small dose of GLP-1 Ozempic. Discuss with PCP retrying 1 mg in the future if 0.5 mg dose was tolerated well. Avoid using at 2 mg dose. Nausea 861215052 R11.0 [id number] DENISSE NIETO Main Office [address] [facility] [address] [place] [address] 10/27/2023 10:39:25 10/27/2023 11:05:58 Cough 43564413 R05.9 -reports of recovering from viral infection- had sore throat that resolved after x1 week (resolved 10/23)-has not taken any OTC medication s-discusse d conservati ve measuremen ts to provide symptomati c relief-lopez l order xray for further evaluation Expiratory wheezing 9763 007 R06.2 hx of exercise induced asthma- has not needed/use d an inhaler in [facility] provide albuterol inhaler as wheezing was appreciate d on the PE [id number] Angelo Ring MD Main Office [address] [facility] [address] [place] [address] 12/04/2023 14:27:42 12/04/2023 16:00:04 Generalized anxiety disorder 95147967 F41.1 Improved on escitalopr am and CHRIS therapy. Morbid obesity 095600373 E66.01 Hold off on revisitng GLP1 agonsit therapy until chest pain is addressed. Recurrent major depression in partial remission 44190236 F33.41 Under much better control since starting CPAP Accidental ly self titrated her dose down to 5mg and doing well. Will stay there for now. Right side d chest pain [id number] R07.89 Suspect soft tissue injury/str ain secondary to prolonged severe cough. Treatment options significan tly limited secondary to pt's myesthenia gravis (no NSAIDS/benitez roid). See if heat, and muscle relaxant helps as well as try topical lidocaine therapy if insurance will allow. Rule of rib fracture/P TX with focused imaging. Female uri nary stress incontinence 97018701 N39.3 With her neuromuscu lar disorder may need further eval if persistent /worse. Will rule out UTI. Myasthenia gravis 522366 04 G70.00 Stable and followed by neuro, but condition and medical therapy impact many treatment options. Body mass index 40+ - severely obese 304028683 Z68.43 [id number] Angelo Ring MD Main Office [address] [facility] [address] [facility], [place] [address] 04/06/2024 12:43:35 04/06/2024 13:25:15 Generalized anxiety disorder 77108795 F41.1 Stable on current escitalopr am dose and CHRIS therapy. Prediabetes 614596444 R7 3.03 Will titrate GLP1 agonist dose and go up to 1mg dose Myasthenia gravis 351849 04 G70.00 Needs therapy assistance for global strength/b alance as well as help maintainin g ADLs. Requesting handicap placard which is reasonable . [id number] Angelo Ring MD Main Office [address] [facility] [address] [place] [address] 07/08/2024 12:32:31 07/08/2024 13:26:04 Myasthenia gravis 86176165 G70.00 On Cellcept, and labs being monitored closely by neuro. Minh thyroiditis 21 699490 E06.3 Biochemica lly and clinically euthyroid. Continue current dose and follow labs. Overdue for labs and does not want to follow with integrativ e medicine who prescribed /monitored labs in the past. Obstructiv e sleep apnea of adult 7357375522 103 G47.33 On CPAP, tolerating and complying well with it with dramatic impact on systemic symptoms. Morbid obesity 910091525 E66.01 Certainly a candidate for GLP 1 agonist therapy. I hope insurance realizes this. Body mass index 40+ - severely obese 666284431 E66.01 Z68.41 Essential hypertension 89869034 I10 Well controlled , continue current regimen. Prediabetes 869832820 R7 3.03 Insurance rejected Ozempic, due for labs. [id number] Angelo Ring MD Main Office [address] [facility] [address] [place] [address] 09/07/2024 08:48:57 09/07/2024 09:51:38 Adult health examination 437635579 Z00.00 Immunizati on status utd. Will screen based on risk factors. Cervical cancer screening utd, pt to have mammo done this year. Regular dental and ophtho care advised as well as seat belt and sunscreen use. Distracted driving discussed. Advance directives in place. Screening for malignant neoplasm of cervix 749862808 Z12.4 Screening for malignant neoplasm of breast 903864397 Z12.39 Body mass index 40+ - severely obese 381336148 E66.01 Z68.43 Ins ultimately approved GLP1 therapy and she is responding . WIll titrate dose as tolerated. Needs infl uenza immunization 604412240 Z23 Recurrent major depression in partial remission 60423351 F33.41 Under much better control since starting CPAP, well controlled on current SSRI dose. Impaired f asting glycemia 666973977 R73.01 Low CHO, regular exercise and weight loss advised. Will monitor. Essential hypertension 46874467 I10 Well controlled , continue current regimen. Hypercholesterolemia 136 29991 E78.01 Will reassess and manage based on CVD risk score. Vitamin D deficiency 347 25726 E55.9 Level has been perfect on current dose. Continue as is. Minh thyroiditis 21 151001 E06.3 Biochemica lly and clinically euthyroid. Continue current dose and follow labs. Additional labs ordered for the prescriber of her throid supplement s. Myasthenia gravis 647516 04 G70.00 Stable and followed by neuro. Prediabetes 234765953 R7 3.03 Will titrate GLP1 agonist dose and go up to 2mg in 4 weeks if continuing to do well. If A1c remains >6.4 will enter diabetes diagnosis. Obstructiv e sleep apnea of adult 4738079282 103 G47.33 On CPAP, tolerating and complying well with it with dramatic impact on systemic symptoms. Screening for malignant neoplasm of colon 088495366 Z12.11 [id number] Angelo Ring MD Main Office [address] [facility] [address] [place] [address] 12/07/2024 10:28:22 12/07/2024 11:50:35 Prediabetes 894758313 R73.03 Will titrate GLP1 agonist dose and go up to 15mg in 4 weeks if continuing to do well. Generalize d anxiety disorder 54290060 F41.1 Stable on current escitalopr am dose and CHRIS therapy. Essential hypertension 79574135 I10 Well controlled , continue current regimen. Body mass index 40+ - severely obese 141590324 E66.01 Z68.43 Ins ultimately approved GLP1 therapy not responding as would have expected. Will titrate dose as tolerated. Pain in bi lateral legs 6972504345 1354255 M79.604 M79.605 ? neurogenic vs vascular. will start with vascular eval and go further from there depending on outcome. Recurrent major depression in partial remission 39659157 F33.41 Under much better control despite increased personal stressors. Well controlled on current SSRI dose. [id number] Erasmo Sandoval MD Main Office [address] [facility] [address] [place] [address] 02/16/2025 09:45:44 02/16/2025 10:44:05 Acute pharyngitis 025022957 J02.9 negative strep test. Moderate dehydration 651 2535609 105 E86.0 tachycardi a, has had N/V/D. encouraged hydration with electrolyt es, water. zofran as eeded for nausea Essential hypertension 82418792 I10 BP stable Myasthenia gravis 056386 04 G70.00 Food-borne gastroenteritis 999009344 A05.9 suspect food related, neg covid/ flu and strep. sx overall imrpoving, encouraged zofran as needed, hydration, bland diet and advance as tolerated, if not better next week f/u as scheduled. [id number] Angelo Ring MD Main Office [address] [place] [address] 02/22/2025 14:43:13 02/22/2025 15:31:58 Morbid obesity 355461281 E66.01 On GLP1 and tolerating well, but not really responding . Will try to increase dose further. Generalize d anxiety disorder 09719563 F41.1 Stable on current escitalopr am dose and CHRIS therapy. Essential hypertension 14986310 I10 Well controlled , continue current regimen. Recurrent major depression in partial remission 46692418 F33.41 Under much better control despite increased personal stressors. Well controlled on current SSRI dose. Body mass index 40+ - severely obese 719074809 E66.01 Z68.43 Ins ultimately approved GLP1 therapy not responding as would have expected. Will titrate dose as tolerated. Obstructiv e sleep apnea of adult 4739239924 103 G47.33 On CPAP, tolerating and complying well with it with dramatic impact on systemic symptoms. Venous ins ufficiency of lower limb 204565757 I87.2 Has ablations scheduled next week [id number] Angelo Ring MD Main Office [address] [facility] [place] [place] [address] 04/07/2025 14:35:27 04/07/2025 15:39:46 Morbid obesity 012362962 E66.01 On GLP1 and tolerating well, but not a max dose. Insurance is not covering any further. Other weight loss medication s are not ideal options based on her comorbidit ies. Body mass index 40+ - severely obese 711978412 E66.01 Z68.43 Insurance denying GLP 1 therapy because of lack of effect. Will try Obstructiv e sleep apnea of adult 2729297958 103 G47.33 On CPAP, tolerating and complying well with it. Prediabetes 418004024 R7 3.03 Will monitor off of GLP1 agonist Pain of knee region 1003 584602 M25.561 G89.29 63684305 Possibly OA vs soft tissue vs vascular. If xray normal will discuss physiatry referral. Obesity 286605321 E66.9 BMI > 30 Axillary h idradenitis suppurativa 646021296 L73.2 8956339 Symptoms are suspicious for this diagnosis. Treatment options limited by allergies and comorbidit ies. Having thymus MRI, which should rule out chest pathology and recent mammogram was negative. Consider further eval if persistent /worse. [id number] Angelo Ring MD Main Office [address] [facility] [address] [facility], [place] [address] 05/26/2025 09:54:16 05/26/2025 11:00:22 Essential hypertension 87890928 I10 Well controlled , continue current regimen. Lipedema o f lower extremity 2761111498 R60.0 2535543424 Followed by vein center, but needs PT for lip/lymphe alyssa Patellofem oral syndrome of bilateral knees 9465688578 6472780 M22.2X1 M22.2X2 14603812 Will comorbidit ies there is concern for CTD. Will ask rheum for guidance. Body mass index 40+ - severely obese 607547625 E66.01 Z68.43 Insurance denying GLP 1 therapy because of lack of effect. Has appt with Danna Wt mgmt 06/06, and Dr. Maynard as well. Myasthenia gravis 887716 04 G70.00 Stable and followed by neuro. 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 Being referred to thoracic surgery by neuro. 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 Seen incidental ly on chest CT. Will ask GI to help evaluate further. Obstructiv e sleep apnea of adult 1374205398 103 G47.33 On CPAP, tolerating and complying well with it. Being considered for BIPAP. Prediabetes 959687332 R7 3.03 Will monitor off of GLP1 agonist [id number] Angelo Ring MD Main Office [address] [facility] [address] [facility] [place], [place] [address] 09/08/2025 08:19:15 09/08/2025 09:26:11 Adult health examination 782188178 Z00.00 Immunizati on status utd. Will screen based on risk factors. Cervical cancer screening utd, pt to have mammo done this year. Regular dental and ophtho care advised as well as seat belt and sunscreen use. Distracted driving discussed. Advance directives in place. Body mass index 40+ - severely obese 854635828 E66.01 Z68.42 Making strides with Danna olivarez and Dr. Maynard as well. Obstructiv e sleep apnea of adult 7485896767 103 G47.33 On CPAP, tolerating and complying well with it. Screening for malignant neoplasm of cervix 229012664 Z12.4 Will request recent PAP result. Screening for malignant neoplasm of breast 261500658 Z12.39 Due in Dec Pain of le ft shoulder region 8121996378 M25.512 10029771 c/w biceps tendinitis /rotator cuff disease. Try home/forma l PT and PMR consult if persistent /worse. Myasthenia gravis 132845 04 G70.00 Stable and followed by neuro. Off of immunomodu latory meds since thymectomy . Vitamin D deficiency 347 66014 E55.9 Level has been perfect on current dose. Continue as is. Prediabetes 143095894 R7 3.03 Will monitor off of GLP1 agonist Acquired hypothyroidism 555644500 E03.9 17179 On T4?T3 supplement . Hyperlipidemia 84215998 E78.5 Due for reassessme nt, will discuss mgmt based on CVD risk score. Recurrent major depression in partial remission 99404474 F33.41 Under much better control despite increased personal stressors. Well controlled on current SSRI dose. Generalize d anxiety disorder 87799170 F41.1 Stable on current escitalopr am dose and CHRIS therapy. Health Concerns Section Related Observation LastModified by Organization Detai ls LastModified Time None Recorded Concern Status LastModified by Organization Details LastModified Time None Recorded Advance Directives Directive Y: HCP -Jacklyn, Margarito a/Mauro Payers Insurance Date Sequence Insurance Name Policy Number Policy Quick Covered Member ID Quick Member ID Guarantor Name 07/07/2024 1 [facility] [id number] Frannie Edouard [id number] Joanna Elise 07/11/2021 1 [facility] [place] [id number] Joanna Elise [id number] Joanna Elise 09/08/2025 1 [facility] [place] [place] [id number] Joanna Elise [id number] Joanna Elise Notes Date Note Type Note Provider Name and Address Organization Details Recorded Time 025 text/ht ml Throat PainReported by PatientPatient went to dinner Friday, has seafood RAS, [...] the only one who ate seafood. Nadine Lema, [facility] [address] [place] [address], [place], [address], [facility] 02/16/2025 12:20:18 025 text/ht ml Musculoskeletal PainReported by PatientHPIFor quality, patient reportsaching. For severity, patient reportsworseningandinterference with work. For duration, patient reportspresent for 6-12 months. For timing, patient reportsintermittent. For context, patient reportsoveruse.Having intermittent leg pain and muscle fatigue in the afternoon. Has myesthenia Gravis, on cellcept, does not exercise regularly, and was advised by therapist that she may have lipedema. Seen by vascular and diagnosed with venous insufficiency. Hypertension F/UReported by PatientHPIFor associated symptoms, patient reportsno dizziness,no lightheadedness,no chest pain,no shortness of breath,no palpitations,no edema, andno calf pain with exertion. For medications, patient reportstaking medications as directedandno side effects from medication. Anxiety/DepressionReported by PatientHPIFor context, patient reportsmajor life stressors. For associated symptoms, patient reportsanxietyanddepressionbut reportsdenies homicidal ideations,no significant weight gain,no significant weight loss,mood good, andno crying spells. For quality, patient reportssymptoms improved. For severity, patient reportsable to maintain relationshipsanddoes not interfere with activities of daily living. For duration, patient reportssymptoms lasting over 2 weeks.Symptoms significantly improved with CPAP, escitalopram and therapy ObesityReported by PatientHPIFor associated symptoms, patient reportsdepression or anger symptomsandchronic illness. For co-morbidities, patient reportsobstructive sleep symptoms. For nutrition, patient reportspoor compliance with dietbut reportswhole grain foods. For physical activity, patient reportsno exercise. For diagnosis summary, patient reportsdiagnosis: impaired fasting glucose. For context, patient reportsno oral steroids. For lifestyle changes, patient reportsexercising more. For medication education, patient reportsunderstands potential side effects,understands administration, andunderstands role of diet as primary therapy.Was initially tolerating Ozempic very well, but then [...] loss effect has plateaued Angelo Ring MD [address] [address], [place], [address], [facility] 02/22/2025 16:49:43 025 text/ht ml Musculoskeletal PainReported by PatientHPIFor quality, patient reportsaching. For severity, patient reportsworseningandinterference with work. For location, patient reportsright knee. For duration, patient reportspresent for 6-12 months. For timing, patient reportsintermittent. For context, patient reportsoveruse.Having intermittent leg pain and muscle fatigue in the afternoon as well as right knee pain. Has myasthenia Gravis, on cellcept, does not exercise regularly, and diagnosed with venous insufficiency. Knee joint imaging unremarkable in 2020. Skin LesionReported by PatientHPIFor location, patient reportsarms (b/l axilla). For quality, patient reportspainful,tender, andsore. For severity, patient reportsmoderate. For duration, patient reportsstarted 2 year(s) ago. For context, patient reportsno known trigger. For associated symptoms, patient reportsno fever. Hypertension F/UReported by PatientHPIFor associated symptoms, patient reportsno dizziness,no lightheadedness,no chest pain,no shortness of breath,no palpitations,no edema, andno calf pain with exertion. For medications, patient reportstaking medications as directedandno side effects from medication. Anxiety/DepressionReported by PatientHPIFor context, patient reportsmajor life stressors. For associated symptoms, patient reportsanxietyanddepressionbut reportsdenies homicidal ideations,no significant weight gain,no significant weight loss,mood good, andno crying spells. For quality, patient reportssymptoms improved. For severity, patient reportsable to maintain relationshipsanddoes not interfere with activities of daily living. For duration, patient reportssymptoms lasting over 2 weeks.Symptoms significantly improved with CPAP, escitalopram and therapy ObesityReported by PatientHPIFor associated symptoms, patient reportsdepression or anger symptomsandchronic illness. For co-morbidities, patient reportsobstructive sleep symptoms. For nutrition, patient reportspoor compliance with dietbut reportswhole grain foods. For physical activity, patient reportsno exercise. For diagnosis summary, patient reportsdiagnosis: impaired fasting glucose. For context, patient reportsno oral steroids. For lifestyle changes, patient reportsexercising more. For medication education, patient reportsunderstands potential side effects,understands administration, andunderstands role of diet as primary therapy.Was initially tolerating Ozempic very well, but then [...] has plateaued, and as a result her insurance. Has been on GLP1 agonist for over 1 year. Initially Semaglutide but switched to tirzepatide last fall. Insurance is refusing to cover these medications for morbid obesity. Angelo Ring MD [address] [address], [place], [address], [facility] 04/12/2025 16:26:53 025 text/ht ml Musculoskeletal PainReported by PatientHPIFor quality, patient reportsaching. For severity, patient reportsworseningandinterference with work. For location, patient reportsbilateral knee. For duration, patient reportspresent for 6-12 months. For timing, patient reportsintermittent. For context, patient reportsoveruse.Having intermittent leg pain and muscle fatigue in the afternoon as well as right knee pain. Has myasthenia Gravis, on cellcept, does not exercise regularly, and diagnosed with venous insufficiency. XR of knee was normal. Seeing OT and there is concern that she may have ligamentous laxity or possible MCTD Skin LesionReported by PatientHPIFor location, patient reportsarms (b/l axilla). For quality, patient reportspainful,tender, andsore. For severity, patient reportsmoderate. For duration, patient reportsstarted 2 year(s) ago. For context, patient reportsno known trigger. For associated symptoms, patient reportsno fever.Recent CT scan showed thymus. Seen by vascular and in addition to venous insuffiency was diagnosed to lipedema/lymphedema. Hypertension F/UReported by PatientHPIFor associated symptoms, patient reportsno dizziness,no lightheadedness,no chest pain,no shortness of breath,no palpitations,no edema, andno calf pain with exertion. For medications, patient reportstaking medications as directedandno side effects from medication. Abnormal Liver TestsReported by PatientHPIFor severity, patient reportsast:95,alt:49, andtotal bilirubin: 0.2. For duration, patient reportspresent for 1-6 months. For onset/timing, patient reportsnoted on routine blood work. For associated symptoms, patient reportsno jaundice,no ruq abdominal pain,no luq abdominal pain, andno rlq abdominal pain.CT of chest done showed fatty liver changes. Seeing Dr. Bowen and has colonoscopy schedule next month. Anxiety/DepressionReported by PatientHPIFor context, patient reportsmajor life stressors. For associated symptoms, patient reportsanxietyanddepressionbut reportsdenies homicidal ideations,no significant weight gain,no significant weight loss,mood good, andno crying spells. For quality, patient reportssymptoms improved. For severity, patient reportsable to maintain relationshipsanddoes not interfere with activities of daily living. For duration, patient reportssymptoms lasting over 2 weeks.Symptoms significantly improved with CPAP, escitalopram and therapy ObesityReported by PatientHPIFor associated symptoms, patient reportsdepression or anger symptomsandchronic illness. For co-morbidities, patient reportsobstructive sleep symptoms. For nutrition, patient reportspoor compliance with dietbut reportswhole grain foods. For physical activity, patient reportsno exercise. For diagnosis summary, patient reportsdiagnosis: impaired fasting glucose. For context, patient reportsno oral steroids. For lifestyle changes, patient reportsexercising more. For medication education, patient reportsunderstands potential side effects,understands administration, andunderstands role of diet as primary therapy.Was initially tolerating Ozempic very well, but then [...] has plateaued, and as a result her insurance is denying GLP1 agonist therapy. Had been on GLP1 agonist for over 1 year. Initially Semaglutide but switched to tirzepatide last fall. Insurance is refusing to cover these medications for morbid obesity now and she has gained weigfht since last visit. Angelo Ring MD [address] [address], [place], [address], [facility] 05/26/2025 13:01:18 025 text/ht ml Generic HPI TemplateReported by PatientHere for physical, s/p thymectomy, will be going for gastric sleeve in October. Seeing dentist and ophtho regularly. Angelo Ring MD [address] [address], [place], [address], [facility] 09/08/2025 09:24:55 OBGyn Episode No OBEpisode recorded.
--- OUTSIDE RECORDS SUMMARY | 2025-09-27 08:26 | XMS_ITS | Encounter Summary ---
Author Organization [facility] Address [address] [place] [address] Phone Care Team Providers Care Solvent Mixer Name Role Phone Angelo Dey MD Primary Care Provider Encounter Details Date Type Department Care Team (Late st Contact Info) Description 06/21/2025 Procedure Pass [facility] Endoscopy Admitting Dept Virtual Department [address] [place] [address] Social History Tobacco Use Types Packs/Day Years [...] 7:14 AM EDT Francy Perera RN * [place] Suicide Severity Rating Scale (Screener/Recent Self-Report) Question Answer Date of Assessment Author 1. Wish to be (Past 1 Month) No 025 7:14 AM EDT Francy Perera RN 2. Non-Specific Active Suici angela Thoughts (Past 1 Month) No 06/21/2025 7:14 AM EDT Francy Perera RN 6. Suicidal Behavior (Lifetime) No 7:14 AM EDT Francy Perera RN documented as of this encounter Plan of Treatment Upcoming Encounters Date Type Department Care Team (Late st Contact Info) Description 10/27/2025 11:00 AM EST Office Visit [facility] [address] [place] [address] Unknown, Unknown, Megha Davidson, RRT [address] [address] [email or web address] documented as of this encounter Visit Diagnoses Not on filedocumented in this encounter Care Teams Solvent Mixer Relationship Specialty Start Date End Date Angelo Dey MD [address] [place] [id number] PCP - General Internal Medicine 06/21/25 documented as of this encounter Additional Source Comments The information contained in this document represents components of the legal health record. It is not the complete legal health record.[facility]
== END 2025-09-27 08:20 | disposition home or self-care (01) ==
LOC: HO.US 08:19
PROVIDERS: PCP Pediatrics; Visit Provider Surgery
DX: E66.01 Morbid (severe) obesity due to excess calories (principal); E03.9 Hypothyroidism, unspecified; E78.5 Hyperlipidemia, unspecified; I10 Essential (primary) hypertension
CPT/HCPCS: 76700; 76981

== ENCOUNTER → 2025-09-27 08:21 | Outpatient (BNV) | payer OTHER, SELFPAY | PROVIDERS: PCP Pediatrics; Visit Provider Radiology Diagnostic Radiology | DX: E66.01 Morbid (severe) obesity due to excess calories (principal); Z68.43 Body mass index [BMI] 50.0-59.9, adult; Z90.49 Acquired absence of other specified parts of digestive tract | CPT/HCPCS: 76700 ==

== ENCOUNTER 2025-10-04 11:28 | Outpatient (AMB) | payer OTHER, SELFPAY ==
--- NOTE | 2025-10-03 23:13 | MHC.OFFVISWM ---
VS Expanded 10/03/25 23:14 Height 5 ft 2 in Weight 253 lb BMI 46.3 Body Fat % 62.7 Body Fat Mass 158.6 Fat Free Mass 94.4 Visceral Fat Rating 27 Body Water % 25.6 Body Water Mass 64.7 Muscle Mass/Score 1,293 Intake Visit Reasons: TV Pre Op LSG 10/18/25 Allergies hydromorphone (From Dilaudid) Allergy (Severe, Verified 10/03/25 23:20) Hives sulfamethoxazole (From Bactrim) Allergy (Severe, Verified 10/03/25 23:20) Rash trimethoprim (From Bactrim) Allergy (Severe, Verified 10/03/25 23:20) Rash clindamycin Allergy (Intermediate, Verified 10/03/25 23:20) Rash erythromycin base Allergy (Mild, Verified 10/03/25 23:20) mg flare oxycodone (From Percocet) Allergy (Mild, Verified 10/04/25 10:16) Agitated Sulfa (Sulfonamide Antibiotics) Allergy (Verified 10/04/25 10:09) Rash Medication List - Last Reconciled 10/03/25 by Ted Quinones MD cholecalciferol (vitamin D3) 50 mcg PO DAILY escitalopram oxalate (Lexapro) 10 mg PO DAILY ketoconazole 2% appl topical DAILY levothyroxine 75 mcg PO DAILY liothyronine (Cytomel) 5 mcg PO BID lisinopril 20 mg PO DAILY mometasone 0.1% appl topical DAILY multivitamin 1 tab PO DAILY mycophenolate mofetil (CellCept) 500 mg PO BID 30 days omega 3-ihx-mvf-fish oil 1,200 (144-216) mg (Fish Oil) caps PO ondansetron 4 mg PO Q12H pantoprazole 40 mg PO DAILY polyethylene glycol 3350 17 grams PO DAILY [probiotic PO] pyridostigmine bromide (Mestinon) 30 mg orally 6 times a day, may take extra 1-2 doses per day prn diplopia; 90 days pyridostigmine bromide ER (Mestinon Timespan) 180 mg PO BID 30 days sucralfate 10 mL PO BID HPI HPI TV Pre Op LSG 10/18/25: Details: Start time: 11.30am, End time: 12pm ?I spent 25 minutes speaking with the patient on the phone plus an additional 5 minutes reviewing and updating records for a total of 30 minutes HPI Comments Details: Overall weight loss: 20.4lbs, or 7.46% TBWL Is doing a Premier shake (4oz mixed with 4oz almond milk), one 8oz [employer] shake, 2 Fit Crunch protein bars and one meal (8 forks each) Exercise: treadmill for 300 barry x7/week PFSH Medical History (Updated 10/04/25 @ 10:11 by Lizzeth Reyna RN) History of open sigmoidectomy (~12/26/15) Anxiety Hypertension Morbid obesity COVID-19 virus infection Depression Hypothyroidism Surgical History (Updated 10/04/25 @ 10:13 by Lizzeth Reyna RN) H/O colonoscopy History of esophagogastroduodenoscopy (EGD) Hx of thymectomy (~08/11/25) Hx of cholecystectomy (~06/21/18) Family History Mother Diabetes HTN (hypertension) Hyperlipidemia Glaucoma Father Diabetes HTN (hypertension) Hyperlipidemia Skin cancer Primary vitiligo Hx of Minh thyroiditis Social History Are you a primary account executive healthcare to a significant other at home: No Do you presently have visiting nurse or other home services: No Alcohol intake: current Alcohol intake frequency: does not drink Patient Tobacco Use Status: Never used Tobacco Physical Exam Vital Signs: BMI result Body Mass Index 46.3 Telehealth Telehealth Telehealth Platform: Telephone Location of provider rendering services: practice address Location of patient: address on file Patient Identification confirmed using: Name, : Yes Telehealth method: voice only Patient verbally consented to treatment: Yes Patient verbally consented to billing insurance company: Yes Patient informed of any privacy concerns related to visit: Yes Minutes spent on Phone/Video with Pt.: 30 Assessment & Plan Assessment & Plan (1) Morbid obesity: Code(s): E66.01 - Morbid (severe) obesity due to excess calories Category: Medical Plan: 1.? Plan for lap sleeve gastrectomy including upper GI endoscopy. All tests has been completed and reviewed and the patient is cleared for the surgery. ?If diaphragmatic or ventral hernias are present at time of surgery, these will be repaired laparoscopically as well. The surgery does not replace the need to change your lifestlyle which is the cause of the obesity problem. The surgery provides the motivation to try again to change your lifestyle, it reduces the appetite and make the transition to a better lifestyle easier and doubles the amount of weight you would lose compared to doing the lifestyle change without the surgery. You will need to be on a liquid diet with protein shakes for 2 weeks before surgery to maximize weight loss and boost your nutritional status to recover better from surgery and also for the first two weeks after surgery to let the stomach heal before we introduce other foods. After the first 2 weeks we will introduce protein bars and soft foods like scrambled eggs, cottage cheese and yogurt and after the 6th week will introduce meat, fish and cooked vegetables in small amounts. Over time you should be able to eat everything in small amounts. Side effects like nausea, vomiting, heartburn or abdominal pain are not common in the practice unless you are not following in the practice. This operation requires lifetime commitment to following in our practice and communication with me. You will much less weight and experience side effects if you don?t communicate or not following in the practice. Complications are rare and in our practice is about 1/10 of the national average. However, you can develop bleeding that may require transfusion (hasn?t happened for year in the practice), you may from complications (we did not have any deaths in the practice) and infections. Infections are usually a result of breakdown in communication or not understanding or following directions correctly. They are difficult to treat, they can happen during the first 6 weeks, they may require to be in the hospital for weeks or even months, not being able to eat by mouth and you may have drains and surgeries to try and correct the issue. Other risks and complications include possible conversion to an open procedure, leaks, small bowel obstruction, blood clots, cardiac, or pulmonary complications, as longitudinal float operator complications such as ulcers, insufficient weight loss and vitamin deficiencies. So far she has proven to be an excellent communicator and very compliant with all our directions accomplishing a great weight loss. I believe that she is an excellent candidate and she is ready. 2. Preop prescriptions were provided and explained the purpose of each one. Need to be purchased preop. Start Pantoprazole now as you get it from the pharmacy, 1 pill per day. Sucralfate and Zofran are for after surgery as needed. 3. Bowel prep: please do 7 packets ?of Miralax mixing each one with a an 8oz glass of water, crystal light, gatorade zero, or propel ?on 10/16/25 and the same amount on 10/17/25. The Miralax you begin with one packet at a time in 8oz water or crystal light, gatorade zero, or propel ?as early in the day as you can and you do them back to back until you finish them. Continue the protein shakes during? the bowel prep. 4. Needs to purchase 1oz medicine cups . 5. Needs to purchase Children's liquid Tylenol for postop pain control. 6. She needs to stop the CellCept as of tomorrow 10/04/25. Avoid aspirin, motrin, Advil, Aleve, Ibuprofen, Naproxyn. Tylenol is OK. 7. She needs to purchase the Celebrate multivitamins from the hospital's gift shop. 8. Will do basic preop blood work-up any day between Friday10/10/25 and Friday10/12/25 fasting for 12 hours and is scheduled to see the Anesthesiologist prior to the day of surgery. 9. Importance of adherence to postop folllow-up and recommendations was underscored and she understands that. 10. Stop food and bars as of Friday10/05/25 and continue with 3 8oz (NOT the whole bottle) PREMIER protein shakes at 7am-9am, 10am-12pm and 1pm-3pm and two 8oz [employer] shakes at 4pm-6pm and at 7pm-9pm 11. No soups, broths or V8 12. The patient's?medical?history has been reviewed and they are considered low risk for post op DVT and therefore DVT prophylaxis is not considered necessary. Travel after surgery was reviewed. The patient has not disclosed any travel plans during the first 30 days after surgery and they have been advised that within the first 30 days after surgery any bus, plane, train or car travel over 2 hours in duration is contraindicated due to the possibility of developing blood clots from immobility. Any travel, needs to include periods of ambulation of 10 minutes in duration every 2 hours.? Patient was instructed to discuss any plans for travel during this period with their bariatric surgeon.? 13. As of tomorrow, please check your blood pressure daily in the morning. If your blood pressure is: Below 120/70: do not take the Lisinopril 121/71 to 130/80: take HALF Lisinopril Over 131/81: take the whole Lisinopril 14. Please take at the day of surgery the following medications: The Mestinon and the Lisinopril only if the blood pressure is high enough to justify it based on the parameters above. 15. Stop any control pills and don't use them for one month after surgery 16. Absolutely no smoking or vaping, or marijuana until the surgery and for at least the first 4 weeks. Only nicotine patches are allowed. 17. Send me weight measurements on Friday10/07/25 and 10/14/25 and then on Friday10/18/25, the day of surgery before you go to the hospital. 18. Avoid any steroids by mouth for any reason. Let me know if someone prescribes them to you 19. These instructions supersede anything else you read in the handbook, anything you watched in videos or classes or you were told by any other provider. If there is any conflict, you follow the above instructions and nothing else. Orders: Orders Complete Blood Count Auto Diff 10/03/25 E03.9 - Hypothyroidism, unspecified, E66.01 - Morbid (severe) obesity due to excess calories, E78.5 - Hyperlipidemia, unspecified, I10 - Essential (primary) hypertension C Reactive Protein 10/03/25 E03.9 - Hypothyroidism, unspecified, E66.01 - Morbid (severe) obesity due to excess calories, E78.5 - Hyperlipidemia, unspecified, I10 - Essential (primary) hypertension Hemoglobin A1c 10/03/25 E03.9 - Hypothyroidism, unspecified, E66.01 - Morbid (severe) obesity due to excess calories, E78.5 - Hyperlipidemia, unspecified, I10 - Essential (primary) hypertension Comprehensive Met. Panel 10/03/25 E03.9 - Hypothyroidism, unspecified, E66.01 - Morbid (severe) obesity due to excess calories, E78.5 - Hyperlipidemia, unspecified, I10 - Essential (primary) hypertension Type and Screen 10/03/25 E03.9 - Hypothyroidism, unspecified, E66.01 - Morbid (severe) obesity due to excess calories, E78.5 - Hyperlipidemia, unspecified, I10 - Essential (primary) hypertension TSH reflex Free T4 10/03/25 E03.9 - Hypothyroidism, unspecified, E66.01 - Morbid (severe) obesity due to excess calories, E78.5 - Hyperlipidemia, unspecified, I10 - Essential (primary) hypertension Insulin 10/03/25 E03.9 - Hypothyroidism, unspecified, E66.01 - Morbid (severe) obesity due to excess calories, E78.5 - Hyperlipidemia, unspecified, I10 - Essential (primary) hypertension Lipid Panel 10/03/25 E03.9 - Hypothyroidism, unspecified, E66.01 - Morbid (severe) obesity due to excess calories, E78.5 - Hyperlipidemia, unspecified, I10 - Essential (primary) hypertension Partial Thromboplastin Time 10/03/25 E03.9 - Hypothyroidism, unspecified, E66.01 - Morbid (severe) obesity due to excess calories, E78.5 - Hyperlipidemia, unspecified, I10 - Essential (primary) hypertension Prothrombin Time INR 10/03/25 E03.9 - Hypothyroidism, unspecified, E66.01 - Morbid (severe) obesity due to excess calories, E78.5 - Hyperlipidemia, unspecified, I10 - Essential (primary) hypertension Medications: New pantoprazole 40 mg PO DAILY 90 tabs 0RF K21.9 - Gastro-esophageal reflux disease without esophagitis sucralfate 10 mL PO BID 600 mL 2RF K21.9 - Gastro-esophageal reflux disease without esophagitis ondansetron Only take one every 12 hours as needed if you have nausea 4 mg PO Q12H 20 tabs 0RF nausea and vomiting R11.0 - Nausea polyethylene glycol 3350 Mix each measuring cup with 8oz of water, Crystal light, or Gatorade zero, or Propel and do 7 measuring cups on 10/16/25 and another 7 measuring cups on 10/17/25 17 grams PO DAILY 238 grams 0RF Z01.818 - Encounter for other preprocedural examination
[2025-10-03 23:14] VITALS: BMI 46.3
== END 2025-10-04 15:07 | disposition home or self-care (01) ==
LOC: HO.HBS 11:28
PROVIDERS: PCP Pediatrics; Visit Provider Surgery
DX: E66.01 Morbid (severe) obesity due to excess calories (principal)
CPT/HCPCS: 99214

== ENCOUNTER 2025-10-18 08:41 | Day surgery (SDC) | payer OTHER, SELFPAY ==
--- NOTE | 2025-10-04 10:00 | HO.ANESPROP2 ---
Documented by User: Shanta Whitehead NP 10/04/25 10:11 HPI - Anesthesia Eval Consult details Narrative: 45 yr old female for Gastrectomy Sleeve,EGD,possible Diaphragmatic Hernia,possible Ventral Hernia,possible Open BMI 46.3 Myasthenia Gravis: follows 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 S/P thymectomy 08/11/25 [facility] [place] Thoracic surgery, post op course uncomplicated, off Cellcept end of Jul 2025. PMFSH Active Problems Active Problems: All Active Problems Hypothyroidism (Acute) Anxiety (Acute) Hypertension (Acute) Morbid obesity (Acute) HLD (hyperlipidemia) (Acute) Thymus hyperplasia (Acute) Nocturnal hypoxemia (Acute) Impaired mobility and ADLs (Acute) Weight gain (Acute) Mild obstructive sleep apnea (Acute) Weakness (Acute) IBS (irritable bowel syndrome) (Acute) Diplopia (Acute) Myasthenia gravis (Acute) Past Medical History Medical History History of open sigmoidectomy (~12/26/15) Anxiety Hypertension Morbid obesity COVID-19 virus infection Depression Hypothyroidism Family History Family History Mother Diabetes HTN (hypertension) Hyperlipidemia Glaucoma Father Diabetes HTN (hypertension) Hyperlipidemia Skin cancer Primary vitiligo Hx of Minh thyroiditis Family history of problems with anesthesia: No Surgical History Surgical History H/O colonoscopy History of esophagogastroduodenoscopy (EGD) Hx of thymectomy (~08/11/25) Hx of cholecystectomy (~06/21/18) History of Problems with Anesthesia: No Social History Social History Are you a primary home care scheduler to a significant other at home: No Do you presently have visiting nurse or other home services: No Alcohol intake: current Alcohol intake frequency: does not drink Patient Tobacco Use Status: Never used Tobacco Meds Allergies Allergy/AdvReac Type Severity Reaction Status Date / Time hydromorphone (From Dilaudid) Allergy Severe Hives Verified 10/03/25 23:20 sulfamethoxazole (From Allergy Severe Rash Verified 10/03/25 23:20 Bactrim) trimethoprim (From Bactrim) Allergy Severe Rash Verified 10/03/25 23:20 clindamycin Allergy Intermediate Rash Verified 10/03/25 23:20 erythromycin base Allergy Mild mg flare Verified 10/03/25 23:20 oxycodone (From Percocet) Allergy Mild Agitated Verified 10/04/25 10:16 Sulfa (Sulfonamide Allergy Rash Verified 10/04/25 10:09 Antibiotics) Home Medications ?Medication ?Instructions ?Recorded ?Confirmed ?Last Taken ?Type levothyroxine 75 mcg capsule 75 mcg PO DAILY 02/07/22 10/04/25 08/01/25 History liothyronine 5 mcg tablet (Cytomel) 5 mcg PO BID 02/07/22 10/04/25 Unknown History lisinopril 20 mg tablet 20 mg PO DAILY 02/07/22 10/04/25 Unknown History ketoconazole 2 % topical cream 1 appl topical DAILY 11/29/22 10/04/25 Unknown History mometasone 0.1 % topical cream 1 appl topical DAILY 11/29/22 10/04/25 08/01/25 History cholecalciferol (vitamin D3) 50 50 mcg PO DAILY 06/06/25 10/04/25 Unknown History mcg (2,000 unit) tablet escitalopram oxalate 10 mg tablet 10 mg PO DAILY 06/06/25 10/04/25 08/01/25 History (Lexapro) multivitamin 1 tab PO DAILY 06/06/25 10/04/25 Unknown History omega 4-nou-vrg-fish oil 1,200 mg 1 cap PO DAILY 06/06/25 10/04/25 Unknown History (144 mg-216 mg) capsule (Fish Oil) probiotic 1 tab PO DAILY 06/06/25 10/04/25 Unknown History estradiol 0.05 mg-norethindrone 1 patch topical QWEEK 10/04/25 10/04/25 Unknown History 0.14 mg/24 hr semiwkly transderm patch (CombiPatch) pyridostigmine bromide 60 mg 60 mg PO TID PRN Outbreak 10/04/25 10/04/25 Unknown History tablet (Mestinon) Exam Pertinent Lab Results Pertinent Lab Results: Laboratory Tests 07/22/25 09:53 WBC 5.6 RBC 4.06 L Hgb 12.4 Hct 38.0 Plt Count 263 Sodium 139 Potassium 4.5 Chloride 105 Carbon Dioxide 26 BUN 19 H Creatinine 0.70 Narrative Narrative: EKG 07/2025 Vent. Rate : 83 BPM Atrial Rate : 83 BPM P-R Int : 130 ms QRS Dur : 78 ms QT Int : 364 ms P-R-T Axes : 56 7 26 degrees QTcB Int : 427 ms Normal sinus rhythm Normal ECG No previous ECGs available Assessment and Plan Final Anesthetic Review Family History of Problems with Anesthesia: No History of Problems with Anesthesia: No Documented by User: Claudia Neri MD 10/18/25 08:40 PMFSH Past Medical History Medical History History of open sigmoidectomy (~12/26/15) Anxiety Hypertension Morbid obesity COVID-19 virus infection Depression Hypothyroidism Family History Family History Mother Diabetes HTN (hypertension) Hyperlipidemia Glaucoma Father Diabetes HTN (hypertension) Hyperlipidemia Skin cancer Primary vitiligo Hx of Minh thyroiditis Surgical History Surgical History H/O colonoscopy History of esophagogastroduodenoscopy (EGD) Hx of thymectomy (~08/11/25) Hx of cholecystectomy (~06/21/18) Social History Social History Are you a primary home care scheduler to a significant other at home: No Do you presently have visiting nurse or other home services: No Alcohol intake: current Alcohol intake frequency: does not drink Patient Tobacco Use Status: Never used Tobacco Meds Allergies Allergy/AdvReac Type Severity Reaction Status Date / Time hydromorphone (From Dilaudid) Allergy Severe Hives Verified 10/03/25 23:20 sulfamethoxazole (From Allergy Severe Rash Verified 10/03/25 23:20 Bactrim) trimethoprim (From Bactrim) Allergy Severe Rash Verified 10/03/25 23:20 clindamycin Allergy Intermediate Rash Verified 10/03/25 23:20 erythromycin base Allergy Mild mg flare Verified 10/03/25 23:20 oxycodone (From Percocet) Allergy Mild Agitated Verified 10/04/25 10:16 Sulfa (Sulfonamide Allergy Rash Verified 10/04/25 10:09 Antibiotics) Home Medications ?Medication ?Instructions ?Recorded ?Confirmed ?Last Taken ?Type levothyroxine 75 mcg capsule 75 mcg PO DAILY 02/07/22 10/04/25 08/01/25 History liothyronine 5 mcg tablet (Cytomel) 5 mcg PO BID 02/07/22 10/04/25 Unknown History lisinopril 20 mg tablet 20 mg PO DAILY 02/07/22 10/04/25 Unknown History ketoconazole 2 % topical cream 1 appl topical DAILY 11/29/22 10/04/25 Unknown History mometasone 0.1 % topical cream 1 appl topical DAILY 11/29/22 10/04/25 08/01/25 History cholecalciferol (vitamin D3) 50 50 mcg PO DAILY 06/06/25 10/04/25 Unknown History mcg (2,000 unit) tablet escitalopram oxalate 10 mg tablet 10 mg PO DAILY 06/06/25 10/04/25 08/01/25 History (Lexapro) multivitamin 1 tab PO DAILY 06/06/25 10/04/25 Unknown History omega 9-qbj-czr-fish oil 1,200 mg 1 cap PO DAILY 06/06/25 10/04/25 Unknown History (144 mg-216 mg) capsule (Fish Oil) probiotic 1 tab PO DAILY 06/06/25 10/04/25 Unknown History estradiol 0.05 mg-norethindrone 1 patch topical QWEEK 10/04/25 10/04/25 Unknown History 0.14 mg/24 hr semiwkly transderm patch (CombiPatch) pyridostigmine bromide 60 mg 60 mg PO TID PRN Outbreak 10/04/25 10/04/25 Unknown History tablet (Mestinon) Exam Airway Mallampati Class: III TM Dist: <=3cm Neck ROM: Full Heart: rrr Lungs: cta Assessment and Plan Assessment Anesthesia Assessment: Anesthesia Plan Discussed and Chart Reviewed Final Anesthetic Review NPO: Yes ASA Class: III Final Preanesthetic Review: No Changes in Pt Med Stat, Meds/Allgs Chart Reviewed, Consent Obtained/Reviewed and Anes Risks/Benef Reviewed Patient Risk: Intermediate Procedure Risk: Intermediate Anesthetic Plan Anesthetic Plan: GA and Agree w/ Assess. and Plan Disposition: Standard PACU
[2025-10-04 10:39] VITALS: BMI 46.6
[2025-10-11 07:31] LABS: MANUAL DIFF FLAG NO
[2025-10-11 07:38] LABS: Hematocrit 41.5 % (37.0-47.0); Hemoglobin 13.6 g/dl (12.0-16.0); Imm Gran Abs Auto 0.03 X10*3/uL (0.00-0.03); Imm Gran Pct Auto 0.4 % (0.0-0.4); Lymphocytes Absolute Auto 1.4 X10*3/uL (1.2-4.9); Mean Corpuscular HGB Conc 32.8 g/dl (31.0-35.0); Mean Corpuscular Hemoglobin 30.3 pg (27.0-33.0); Mean Corpuscular Volume 92.4 fL (80.0-98.0); NRBC Abs Auto 0.000 X10*3/uL (0.0-0.012); NRBC Pct Auto 0.0 /100WBC (0.0-0.2); Platelet Count 233 X10*3/uL (160-400); Red Blood Count 4.49 X10*6/uL (4.20-5.50); White Blood Count 7.9 X10*3/uL (4.8-10.8)
[2025-10-11 07:46] LABS: INTERNATIONAL NORM RATIO 1.1 (0.9-1.1); Prothrombin Time 13.1 SEC (11.2-13.5)
[2025-10-11 07:49] LABS: Partial Thromboplastin Time 35.3 SEC (26.7-34.1)
[2025-10-11 07:59] LABS: Alanine Aminotransferase 46 U/L (0-31); Albumin Level 4.9 g/dL (3.5-5.0); Alkaline Phosphatase 76 U/L (39-117); Anion Gap 14 (12-20); Aspartate Amino Transferase 34 U/L (5-31); Blood Urea Nitrogen 14 mg/dL (9-16); Calcium 9.6 mg/dL (8.4-10.2); Carbon Dioxide 23 mmol/L (22-29); Chloride 107 mmol/L (96-108); Cholesterol 170 mg/dL (<200); Creatinine Clr Calc Pharmacy 128.3; Estimated Glomerular Filt Rate > 60; HDL Cholesterol 44 mg/dL (>40); Potassium 4.0 mmol/L (3.3-5.1); Sodium 140 mmol/L (135-145); Total Protein 7.2 g/dL (6.5-8.0); Triglycerides 127 mg/dL (<150)
[2025-10-18] VITALS (13 sets, daily range): BP systolic 115–145; BP diastolic 58–88; PULSE 78–115; RESP 11–17; TEMP 36–36.4; O2SAT 94–100; BMI 46.1
[2025-10-18 09:50] LABS: UPreg QC Valid YES
[2025-10-18] MEDS: Lactated Ringers 1,000 ML 999 ML IV ×2 (10:18→10:19)
[2025-10-18] MEDS: Aprepitant 32 MG/4.4 ML VIAL IVPUSH (10:22)
--- NOTE | 2025-10-18 11:34 | MHC.SHP ---
Pre-Procedural Eval Section A - 24 Hr Update-Section A only Date of Service: 10/18/25 The patient is an INPATIENT: No The patient has been examined within 24 hours of the surgical procedure. The History & Physical has been completed within 30 days and I have reviewed it.: Yes Section B - Complete if H&P > 30 days Chief Complaint: Morbid (severe) obesity due to excess calories Relevant Family History (Specify if Yes): No Relevant Social History: None Present Medications: None Medical History: No relevant PMH History of Previous Operations: No relevant previous surgery Allergies: Allergies Allergy/AdvReac Type Severity Reaction Status Date / Time hydromorphone (From Dilaudid) Allergy Severe Hives Verified 10/03/25 23:20 sulfamethoxazole (From Allergy Severe Rash Verified 10/03/25 23:20 Bactrim) trimethoprim (From Bactrim) Allergy Severe Rash Verified 10/03/25 23:20 clindamycin Allergy Intermediate Rash Verified 10/03/25 23:20 erythromycin base Allergy Mild mg flare Verified 10/03/25 23:20 oxycodone (From Percocet) Allergy Mild Agitated Verified 10/04/25 10:16 Sulfa (Sulfonamide Allergy Rash Verified 10/04/25 10:09 Antibiotics) Review of Systems Sugical H&P ROS: Negative: Constitution, Cardiovascular, Respiratory, Neurological, Psychiatric, Hem-Onc, Allergic/Immunologic, Gastrointestinal, Genitourinary, Musculoskeletal, Integumentary, Endocrine and Eyes/Ears/Nose/Throat Exam Surgical H&P Exam: Normal: HEENT, Normal: Heart, Normal: Lungs, Normal: Extremities, Normal: Abdomen, Normal: Skin and Normal: Neurological Plan Diagnosis/Plan: Unchanged I have reviewed the history and physical and performed a pertinent physical examination on my patient. No changes have occurred unless specified. Time Spent With Patient Time: Total time managing care of this patient today ____ minutes.
--- NOTE | 2025-10-18 11:35 | PM.OP ---
Brief Operative Note Date of Service: 10/18/25 Pre-op diagnosis: Morbid obesity with comorbidities (see below) Post-op diagnosis: same (& congenital abdominal adhesions) Procedure: INITIAL PATIENT BMI ON PRESENTATION AT OUR OFFICE: 50.1 kg/m2 LAST BMI BEFORE SURGERY: 45.9 kg/m2 COMORBIDITIES: hypertension, depression, anxiety, hypothyroidism, myasthenia gravis ?The patient presented to the Weight Management Program with significant obesity that was negatively impacting the patient's comorbidities as listed above.? The program is a phased program with a special focus on preoperative medical weight management to promote substantial weight loss and prepare the patients for the second phase of the program: bariatric surgery. The patient participated in an intensive weekly lifestyle ?intervention and exercise program during which the patient ?has lost between the initial office visit and the last preoperative visit 24 lbs, or 8.8% of initial actual body weight. It was deemed appropriate for the patient to now have bariatric surgery. In light of the current Covid-19 pandemic and the well documented strong association of obesity and increased risk of worse outcomes if infected with Covid-19 (REFERENCES:https://pubmed.ncbi.nlm.nih.gov/69671396/,?https://pubmed.ncbi.nlm.nih.gov/96987049/), any delay in undergoing bariatric surgery may lead to the patient's worsening health condition and increased?risk of more severe Covid-19 disease if infected. In addition a recent?study from [facility] published in [facility] on 11/12/2021 ([email or web address]) found that, among patients with obesity, substantial weight loss achieved with surgery was associated with improved outcomes of COVID-19 infection. The findings suggest that obesity can be a modifiable risk factor for the severity of COVID-19 infection. In addition, the patient met the BMI-criteria for bariatric surgery based on the BMI on initial presentation. The patient should not be penalized for achieving such weight loss because ?it is not sustainable long-term without surgical intervention and it was achieved in preparation for bariatric surgery ?under my direction and based on my published research ([email or web address]).[email or web address] and?https://www.soard.org/article/[email or web address](12)51430-X/pdf) ?that a 10% preoperative weight loss improves long-term weight loss after surgery and reduces perioperative complications.? Insurance carriers such as [facility] have endorsed my recommendations ?and have included in their policies criteria to include a 10% preoperative weight loss requirement. PROCEDURE: Esophago-gastroscopy, laparoscopic lysis of adhesions, laparoscopic sleeve gastrectomy and laparoscopic gastropexy INDICATIONS: This is a 45 year-old female who was electively scheduled for laparoscopic, possibly open sleeve gastrectomy. The risks and complications of the procedure were discussed with the patient in advance, particularly the possibility of ; pulmonary embolism; staple line leak; bleeding; GERD; cardiac, pulmonary, or renal complications; as well as long-term problems such as insufficient weight loss, vitamin deficiency, strictures, or ulcers. The patient understood all the risks, and was in agreement to proceed with surgery. DESCRIPTION OF PROCEDURE: After informed consent was obtained from the patient, the patient was given preoperative antibiotics, and was transferred to the operating room. After successful induction of general anesthesia, pneumatic compression devices were placed on both lower extremities. An upper endoscopy was performed next. The oropharynx and esophagus appeared to be within normal limits. There was no diaphragmatic hernia present. The stomach was entered. Then after all fluid and air were suctioned and the stomach was fully decompressed, the scope was withdrawn and secured in the mid esophagus. The patient was then prepped and draped in the usual sterile manner, and abdominal access was established at the right upper quadrant with the Etta technique. A 12 mm blunt port was inserted, and the abdomen was insufflated with CO2 to a pressure of 15 mmHg. Under direct visualization, additional ports were placed, specifically two 5 mm Versi-step ports to the left upper quadrant, and a 5 mm Versi-Step port to the right upper quadrant. 1% lidocaine plain was used to infiltrate all port sites as well as all fascia defects. There were adhesions in the abdomen from previous laparoscopic sigmoidectomy involving the omentum and the anterior abdominal wall. Those were left intact as they did not interfere with my procedure. Following that, the patient was placed in a steep reverse Trendelenburg position. An additional 5 mm port was placed to the right flank for the Mediflex retractor that was used to retract the left lobe of the liver. The gastro-esophageal fat pad was opened with the ultrasonic device (Thunderbeat, Olympus) and the anterior esophagus and hiatus were exposed. The angle of His was opened with the ultrasonic device the fundus of the stomach from any diaphragmatic and splenic attachments. I then opened the gastrocolic ligament between the transverse colon and the greater curvature of the stomach with the ultrasonic device to enter the lesser sac and facilitate the ligation of the short gastric vessels. I started at a mid-point along the greater curvature and using the Thunderbeat, all short gastric vessels were divided all the way to the angle of His until the left katrin was completely dissected at its entirety. I then divided the gastro-colic ligament distally to a distance of about 3-4 cm proximal to the pylorus. There were extensive congenital adhesions between the pancreas and posterior gastric wall. Those were lysed completely with the ultrasonic device. Adhesiolysis took approximately 45 min to complete. The stomach was then divided transversely with three Endo SHARMAINE-45 purple and three SHARMAINE-60 articulating purple loads using the SIGNIA stapler and loads. Every effort was made that the gastric sleeve had a tubular shape and an even caliber throughout. Once the sleeve resection was completed, the staple line of the gastric sleeve was reinforced with Hemoclips. The resected stomach was retrieved without difficulty from the Etta port. A gastropexy was then performed in order to prevent postoperative GERD and partial gastric volvulus. Several interrupted 2.0 Surgidac sutures were placed between the sleeve's staple line and the previously divided greater omentum and gastro-colic ligament using the Endo-Stitch device. ?An upper endoscopy was performed. There was no narrowing at the GE junction. The scope was easily advanced all the way to the pylorus which was clearly visualized. There was no narrowing anywhere and the sleeve's caliber was even throughout. The sleeve's staple line was inspected and there was no evidence of ischemia, bleeding or dehiscence. At that point the gastroscope was withdrawn from the patient?s mouth while we were decompressing the bowel and the stomach from any remaining air. I looked into the lesser sac to see how the sleeve was situating and it was situating well. There was no bleeding from the staple line, spleen, or short gastric vessels. The Mediflex retractor was removed, and the undersurface of the liver was inspected and there was no bleeding. The patient was placed in supine position. I closed the fascial defect of the 12 mm port site with a figure of eight #1 Polysorb suture. Then 30cc Ropivacaine plain with 10 mg of Dexamethasone were used to infiltrate the fascial closure as well as all skin incisions. At this point, the abdomen was deflated, all ports were removed under direct vision, and no bleeding was noted from any of the port sites. The skin incisions were irrigated with saline and were closed with 4-0 absorbable monofilament sutures. Steri-Strips and OpSites were used to cover all incisions. The patient was extubated and was transferred in stable condition to the recovery room for further care. I was present and performed all gilbert parts of the procedure. Ms. Cruzdemarco was the first aid attendant. There were no residents to assist with this case. Cipriano Quinones MD, PhD, FACS Surgeon: Ted Quinones MD Anesthesia: GETA, local and other (TAP block) Was an Miller First used for this Procedure?: No Miller First: Ly Faustin Estimated blood loss (mL): 10 IV fluids (mL): 2,500 Urine output (mL): 0 (No Cage to record output) Pathology: other (1) Stomach, 2) Gastro-esophageal fat pad) Condition: stable Disposition: PACU
--- NOTE | 2025-10-18 11:40 | P.PNGS_ITS ---
Subjective Subjective Date of Service: 10/19/25 Interval history: Feels well. Mild incisional pain. She is tolerating phase 1 bariatric diet Physical Exam 2 Vital Signs: Vital Signs: Last Vital Signs Temp 97.3 F 10/18/25 10:07 Pulse 83 10/18/25 10:07 Resp 16 10/18/25 10:07 BP 131/59 L 10/18/25 10:07 Pulse Ox 96 10/18/25 10:07 O2 Del Method Room Air 10/18/25 10:07 BMI result Body Mass Index 46.1 GI: Inspection: Yes normal to inspection, Yes incision (clean, dry and intact) and Yes obesity Palpation (GI): Soft to palpation Extrem: Right lower extremity: normal to inspection (no calf tenderness) L eft lower extremity: normal to inspection (no calf tenderness) Objective Data Active Medications Fentanyl (Fentanyl Citrate/Pf 100 Mcg/2 Ml Vial) 50 mcg IVPUSH Q5M PRN PRN Reason: Pain, Moderate to Severe (Pain Scale 4-10) Stop: 10/18/25 14:41 Haloperidol Lactate (Haloperidol Lactate 5 Mg/Ml Vial) 1 mg IVPUSH ONCE PRN PRN Reason: intractable nausea Stop: 10/18/25 14:41 Lactated Ringer's (Lr) 1,000 mls @ 100 mls/hr IVCONT .Q10H COURTNEY Stop: 10/18/25 13:29 Naloxone HCl (Naloxone Hcl 0.4 Mg/Ml Vial) 0.04 mg IVPUSH Q5M PRN PRN Reason: Excessive sedation or RR < 8 Ondansetron HCl (Ondansetron Hcl 4 Mg/2 Ml Vial) 4 mg IVPUSH ONCE PRN PRN Reason: Nausea and Vomiting Stop: 10/18/25 14:41 Labs 10/19/25 05:05 10/19/25 05:05 Labs: Laboratory Results - last 24 hr 10/18/25 09:34 Urine Test NEGATIVE Procedures Date of Service Date of Service: 10/19/25 Progress Note: A&P Assessment and plan (1) Morbid obesity: Status: Acute Assessment and Plan: s/p laparoscopic sleeve gastrectomy, lysis of adhesions and gastropexy Doing well Will check am labs and if OK the patient will be discharged home (2) Hypothyroidism: Status: Acute (3) Hypertension: Status: Acute (4) Anxiety: Status: Acute (5) HLD (hyperlipidemia): Status: Acute (6) Myasthenia gravis: Status: Acute (7) Mild obstructive sleep apnea: Status: Acute (8) Depression: Status: Acute (9) S/P laparoscopic sleeve gastrectomy: Status: Acute (10) Congenital intra-abdominal adhesions: Status: Acute Time Spent With Patient Time: Total time managing care of this patient today ____ minutes. Quality Stroke Does the patient have a stroke diagnosis?: No VTE Prior VTE?: No VTE Risk Level:: Surgical - moderate VTE Device Contraindication: N/A - Device Ordered VTE Drug Contraindication: Treatment Not Indicated
--- NOTE | 2025-10-18 15:08 | PM.DS ---
DS: Providers Provider Date of Service: 10/18/25 Date of discharge: 10/19/25 Primary care physician: Angelo Dey MD DS: Diagnosis Discharge Diagnosis (1) Morbid obesity: Status: Acute (2) Hypothyroidism: Status: Acute (3) Hypertension: Status: Acute (4) Anxiety: Status: Acute (5) HLD (hyperlipidemia): Status: Acute (6) Myasthenia gravis: Status: Acute (7) Mild obstructive sleep apnea: Status: Acute (8) Depression: Status: Acute (9) S/P laparoscopic sleeve gastrectomy: Status: Acute (10) Congenital intra-abdominal adhesions: Status: Acute DS: Summary Hospital Course Hospital Course: ADMITTING DIAGNOSIS: morbid obesity DISCHARGE DIAGNOSIS: same, s/p laparoscopic sleeve gastrectomy and gastropexy PAST HISTORY:? Anxiety Hypertension Morbid obesity COVID-19 virus infection Depression Hypothyroidism Myasthenia gravis Mild CHRIS (uses CPAP) H/O colonoscopy History of esophagogastroduodenoscopy (EGD) Hx of thymectomy (~08/11/25) Hx of cholecystectomy (~06/21/18) History of open sigmoidectomy (~12/26/15) PROCEDURE: upper endoscopy, laparoscopic sleeve gastrectomy and gastropexy DISCHARGE SUMMARY: History of Present Illness: The patient is a45 year-old woman with a BMI of?46.1 kg/m2 and associated co-morbidities as described above. The patient had extensive work-up, lost 29.4 lbs preoperatively and was electively scheduled for laparoscopic, possible open sleeve gastrectomy and gastropexy. Risks and complications of the surgery were discussed with the patient in advance, particularly the possibility of , pulmonary embolism, anastomotic leak, bleeding, bowel injury, GERD, cardiac, renal or pulmonary complications. The patient understood all the risks and was in agreement with the surgical plan. Hospital Course: The patient underwent an uneventful laparoscopic sleeve gastrectomy with gastropexy on the day of admission. Postoperatively, the patient was transferred to the surgical floor. The patient received IV Acetaminophen and IV morphine for pain control. Patient was started on bariatric phase 1 diet POD #0. On postoperative day one, the patient was feeling well without nausea, vomiting, fevers, or tachycardia. The patient had some mild incisional pain and the abdomen was soft.? On the morning of postoperative day one, the patient was continued on 1 ounce of water or ice every half hour. During the day, the patient did fairly well, having some incisional pain, but able to ambulate adequately and to tolerate liquids well. Since the patient is doing well, we decided that the patient was ready to be discharged. The patient was given instructions to follow-up with me next week and to call my office for any fever over 101, persistent abdominal pain, nausea, vomiting, GERD, symptoms of DVT such as calf tenderness, or leg swelling, or pulmonary embolism such as chest pain or shortness of breath.? The patient was also instructed to drink 40-60 ounces of liquids per day using the 1-ounce cups. The patient had been given prescriptions for Tylenol for pain, Zofran prn for nausea, and pantoprazole and carafate previously. The patient was encouraged to ambulate and use the incentive spirometer. The patient was allowed to shower, but no baths, and encouraged to stay active at home. All of these instructions were given to the patient personally. All questions were answered and the patient understood all instructions, the instructions were also given to the patient in print. Time Attestation Discharge Coordination Time (in mins): 30 Quality: Safe Use of Opioids Does Pt have an Active Cancer Diagnosis on the Problem List?: No Quality: Stroke Does the patient have a stroke diagnosis?: No Physical Exam Vital Signs: Vital Signs: Last Vital Signs Temp 97 F 10/18/25 14:55 Pulse 112 H 10/18/25 15:05 Resp 13 10/18/25 15:05 BP 125/64 10/18/25 15:05 Pulse Ox 95 10/18/25 15:05 O2 Del Method Room Air 10/18/25 15:05 O2 Flow Rate 8 10/18/25 15:00 BMI result Body Mass Index 46.1 DS: Data Data Completed and Pending Pending studies at discharge: Pending at discharge 10/18/25 13:50 Surgical [PTH] Routine Labs on day of discharge: Laboratory Results - last 24 hr 10/18/25 09:34 Urine Test NEGATIVE Discharge Plan Discharge Patient Disposition: Home, Self-Care Referrals: Angelo Dey MD [Primary Care Provider, Medical] - 1 Week Discharge Medications: Continued pyridostigmine bromide [Mestinon Timespan] 180 mg tablet extended release 180 mg PO BID 30 Days Qty: 60 6RF Rx Instructions: administer 6 hours apart pyridostigmine bromide [Mestinon] 60 mg tablet 60 mg PO TID PRN (Reason: Outbreak) Rx Instructions: 30 mg orally 6 times a day, may take extra 1-2 doses per day prn diplopia; levothyroxine 75 mcg capsule 75 mcg PO DAILY@0600 liothyronine [Cytomel] 5 mcg tablet 5 mcg PO BID escitalopram oxalate [Lexapro] 10 mg tablet 10 mg PO DAILY Held lisinopril 20 mg tablet 20 mg PO DAILY Hold Instructions: Resume on 10/19/25. follow Dr. Armendariz's blood pressure parameters for Lisinopril Discontinued CombiPatch 0.05-0.14 mg/24 hr patch semiweekly 1 patch topical QWEEK multivitamin Tablet 1 tab PO DAILY cholecalciferol (vitamin D3) 50 mcg (2,000 unit) tablet 50 mcg PO DAILY omega 2-hes-kca-fish oil [Fish Oil] 1,200 (144-216) mg capsule 1 cap PO DAILY probiotic 1 tab PO DAILY polyethylene glycol 3350 17 gram/dose powder 17 g PO DAILY Qty: 238 0RF Rx Instructions: Mix each measuring cup with 8oz of water, Crystal light, or Gatorade zero, or Propel and do 7 measuring cups on 10/16/25 and another 7 measuring cups on 10/17/25 Discharge Orders: Discharge Order (Routine); Ordered 10/19/25 Ordered By: Ted Quinones Activity on Discharge: No heavy lifting Activity Restrictions/Additional Instructions: Discharge Instructions: You may shower the day after discharge. No tub baths, sex or returning to work until discussed at first post op appointment. No alcohol, tobacco, or illegal drug use. Continue to use incentive spirometer hourly while awake. Walk in home for 5-10 minutes every 2 hours during the first week. Wear abdominal binder with activity. Activity: limit stair climbing, no bending, no heavy lifting, no driving, no exercise, no work. No lifting > 10 lbs x6 weeks post op. No driving within 24 hours of taking narcotic pain medications. Follow all meal plan instructions from your bariatric surgeon. Do not advance diet until approved by surgeon. Review bariatric handbook and call with any questions. If you do not move your bowels in the next 2 days, please take milk of magnesia over the counter. Dressing Change/Wound Care: Your incisions are covered with waterproof dressings. You can shower with these and pat dry. Do not rub over dressings or incisions. If the area is tender, you may apply an ice pack for short intervals (no more than 20 minutes on, followed by at least 20 minutes off). Do not apply heat. Do not use creams, lotions, or topical antibiotics unless instructed to do so by your surgeon. Do not hesitate to contact the office with any questions at or concerns such as: - Temperature exceeds 101.5 F, fevers, chills - Excessive pain or swelling, abdominal pain - Unexpected reaction to medication - Excessive bleeding - Continued vomiting/nausea - Incision begins to separate - Signs of infection such as increased redness, swelling, excessive pain, heat, or drainage (light blood or clear fluid is normal) - Shortness of breath - Chest pain - Leg pain or swelling - Return to ER for any emergent symptoms General instructions: Please walk around your home every 1-2hrs to prevent blood clots from forming in your legs. You do not need to wake from sleeping to walk. Please sleep in a bed or couch to prevent kinking at the hips and knees. Please take your incentive spirometer (your lung technical assistant) home with you and use it for the next few days to prevent pneumonia. Please make sure you are consuming 40-60 ounces of total fluids per day. Avoid all carbonation. The patient's medical history has been reviewed and they are considered low risk for post op DVT and therefore DVT prophylaxis is not considered necessary. Travel after surgery was reviewed. The patient has not disclosed any travel plans during the first 30 days after surgery and they have been advised that within the first 30 days after surgery any bus, plane, train or car travel over 2 hours in duration is contraindicated due to the possibility of developing blood clots from immobility. Any travel, needs to include periods of ambulation of 10 minutes in duration every 2 hours.? The patient was instructed to discuss any plans for travel during this period with their bariatric surgeon. Follow up as scheduled in 1 week in office Print Language: Micronesian Discharge Date/Time: 10/19/25 08:54
[2025-10-18 15:30] LABS: Hematocrit 40.4 % (37.0-47.0); Hemoglobin 12.9 g/dl (12.0-16.0)
[2025-10-18 15:43] LABS: Anion Gap 16 (12-20); Blood Urea Nitrogen 11 mg/dL (9-16); Calcium 8.7 mg/dL (8.4-10.2); Carbon Dioxide 16 mmol/L (22-29); Chloride 111 mmol/L (96-108); Creatinine Clr Calc Pharmacy 124.5; Estimated Glomerular Filt Rate > 60; Potassium 3.7 mmol/L (3.3-5.1); Sodium 139 mmol/L (135-145)
[2025-10-18] MEDS: Lactated Ringers 1,000 ML 100 ML IVCONT (16:17)
--- NOTE | 2025-10-18 16:23 | PHA.MEDREC ---
Addendum entered by Hali Marina RPh 10/18/25 17:28: MED REC REVIEWED BY [facility] Original Note: Pharmacy Consult ? Medication Reconciliation Pharmacy has completed the medication reconciliation. Spoke with pt and she confirmed her medications. Pt confirmed she is to start Ondansetron, Pantoprazole and Sucralfate when she gets home from surgery and she is taking a bunch of OTC medications but doesnt remember the names or dose of them at this time.
[2025-10-18] MEDS: 0.9 % Sodium Chloride Flush 3 ML SYRINGE IVFLUSH (20:57)
[2025-10-19] MEDS: Lactated Ringers 1,000 ML 100 ML IVCONT (02:17)
[2025-10-19 03:53] VITALS: BP 100/57; PULSE 62; RESP 14; TEMP 36.1; O2SAT 96
[2025-10-19 05:59] LABS: MANUAL DIFF FLAG NO
[2025-10-19 06:16] LABS: Hematocrit 37.1 % (37.0-47.0); Hemoglobin 11.7 g/dl (12.0-16.0); Imm Gran Abs Auto 0.02 X10*3/uL (0.00-0.03); Imm Gran Pct Auto 0.3 % (0.0-0.4); Lymphocytes Absolute Auto 0.7 X10*3/uL (1.2-4.9); Mean Corpuscular HGB Conc 31.5 g/dl (31.0-35.0); Mean Corpuscular Hemoglobin 29.5 pg (27.0-33.0); Mean Corpuscular Volume 93.5 fL (80.0-98.0); NRBC Abs Auto 0.000 X10*3/uL (0.0-0.012); NRBC Pct Auto 0.0 /100WBC (0.0-0.2); Platelet Count 210 X10*3/uL (160-400); Red Blood Count 3.97 X10*6/uL (4.20-5.50); White Blood Count 5.8 X10*3/uL (4.8-10.8)
[2025-10-19 06:38] LABS: Anion Gap 15 (12-20); Blood Urea Nitrogen 7 mg/dL (9-16); Calcium 8.8 mg/dL (8.4-10.2); Carbon Dioxide 20 mmol/L (22-29); Chloride 110 mmol/L (96-108); Creatinine Clr Calc Pharmacy 134.9; Estimated Glomerular Filt Rate > 60; Potassium 4.5 mmol/L (3.3-5.1); Sodium 140 mmol/L (135-145)
[2025-10-19 07:43] VITALS: BP 118/61; PULSE 72; RESP 16; TEMP 36.2; O2SAT 97
--- NOTE | 2025-10-19 09:29 | HO.POSTANES ---
Post Anesthesia Evaluation Post Anesthesia Evaluation Date of Service: 10/19/25 Vital Signs: Vital Signs Temp Pulse Resp BP Pulse Ox O2 Del Method 10/19/25 07:43 97.1 F 72 16 118/61 97 Room Air 10/19/25 03:53 97.0 F 62 14 100/57 L 96 CPAP 10/18/25 23:37 96.8 F 78 16 115/58 L 94 CPAP Anesthesia: General Mental Status: Awake Pain Control: Satisfactory Nausea/Vomiting: None Hydration: Adequate Anesthesia-Related Issues: No Anes. Related Issues
== END 2025-10-19 08:54 | disposition home or self-care (01) ==
LOC: HO.SSS 15:07 → HO.S3 15:15
PROVIDERS: Nurse Practitioner; PCP Pediatrics; Visit Provider Surgery
PROC: (CPT 43845; principal; 2025-10-18 11:40)
DX: E66.01 Morbid (severe) obesity due to excess calories (principal); Z68.42 Body mass index [BMI] 45.0-49.9, adult; Q43.3 Congenital malformations of intestinal fixation; I10 Essential (primary) hypertension; E78.5 Hyperlipidemia, unspecified; G70.00 Myasthenia gravis without (acute) exacerbation; E03.9 Hypothyroidism, unspecified; F32.A Depression, unspecified; F41.9 Anxiety disorder, unspecified; Z90.49 Acquired absence of other specified parts of digestive tract; Z79.899 Other long term (current) drug therapy; Z88.1 Allergy status to other antibiotic agents; Z88.2 Allergy status to sulfonamides; Z88.5 Allergy status to narcotic agent; Z98.890 Other specified postprocedural states
CPT/HCPCS: 43775; 43659; 49329; 36415; 80048; 80053; 80061; 81025; 83036; 83525; 84443; 85014; 85018; 85025; 85610; 85730; 86140; 86850; 86900; 86901; 88304; 88307; 88342; A4649; C9145; J0131; J0690; J1100; J1308; J2003; J2250; J2270; J2405; J2704; J2795; J3010; J7120

== ENCOUNTER → 2025-10-18 08:41 | Outpatient (BNV) | payer OTHER, SELFPAY | PROVIDERS: PCP Pediatrics; Visit Provider Surgery | DX: E66.01 Morbid (severe) obesity due to excess calories (principal); Z68.42 Body mass index [BMI] 45.0-49.9, adult; Z98.84 Bariatric surgery status | CPT/HCPCS: 99024; 99499 ==

== ENCOUNTER 2025-10-26 12:17 | Outpatient (AMB) | payer OTHER, SELFPAY ==
--- NOTE | 2025-10-26 12:41 | MHC.OFFVISWM ---
VS Expanded 10/26/25 12:56 BP 138/88 Blood Pressure Location Rt brachial Blood Pressure Position Sitting Pulse 94 Pulse Source Pulse Oximeter Temp 97.4 F Temperature Source Temporal Artery Scan Pulse Oximetry 96 Oxygen Delivery Method Room Air Height 5 ft Weight 236 lb 9.6 oz BMI 46.2 Body Fat % 50.3 Body Fat Mass 119 Fat Free Mass 117.6 Visceral Fat Rating 16 Body Water % 35.4 Body Water Mass 83.8 Muscle Mass/Score 111.6 Basal Metabolic Rate/Score 1,691 Intake Visit Reasons: (OV) PO LSG 10/18/25 Allergies hydromorphone (From Dilaudid) Allergy (Severe, Verified 10/26/25 13:02) Hives sulfamethoxazole (From Bactrim) Allergy (Severe, Verified 10/26/25 13:02) Rash trimethoprim (From Bactrim) Allergy (Severe, Verified 10/26/25 13:02) Rash clindamycin Allergy (Intermediate, Verified 10/26/25 13:02) Rash erythromycin base Allergy (Mild, Verified 10/26/25 13:02) mg flare oxycodone (From Percocet) Allergy (Mild, Verified 10/26/25 13:02) Agitated Sulfa (Sulfonamide Antibiotics) Allergy (Verified 10/26/25 13:02) Rash Medication List - Last Reconciled 10/26/25 by DENISSE Marie escitalopram oxalate (Lexapro) 10 mg PO DAILY fluconazole 150 mg PO DAILY levothyroxine 75 mcg PO DAILY@0600 liothyronine (Cytomel) 5 mcg PO BID lisinopril 20 mg PO DAILY Held on 10/19/25. Instructions: Resume on 10/20/25. Check your blood pressure every morning as soon as you wake up and send it to Dr. Quinones. Do no take the blood pressure medication if the blood pressure is below 120/70. Wait every day to hear back from Dr. Quinones before you take the medication. pantoprazole 40 mg PO DAILY pyridostigmine bromide (Mestinon) 60 mg PO TID PRN pyridostigmine bromide ER (Mestinon Timespan) 180 mg PO BID 30 days sucralfate 10 mL PO BID HPI Comments Details: Pt is s/p LSG 10/18/2025. No pain. No nausea. Tolerating 3 Premier shakes, 2x 8oz and 1 full shake (started today). Hydration is adequate, at least 40oz per day. Does report constipation. [facility] Medical History (Updated 10/19/25 @ 00:01 by Zandra Mas) History of open sigmoidectomy (~12/26/15) Anxiety Hypertension Morbid obesity COVID-19 virus infection Depression Hypothyroidism Surgical History (Updated 10/26/25 @ 13:22 by Alyson Issa CMA) S/P gastric sleeve procedure History of bowel resection H/O colonoscopy History of esophagogastroduodenoscopy (EGD) Hx of thymectomy (~08/11/25) Hx of cholecystectomy (~06/21/18) Family History Mother Diabetes HTN (hypertension) Hyperlipidemia Glaucoma Father Diabetes HTN (hypertension) Hyperlipidemia Skin cancer Primary vitiligo Hx of Minh thyroiditis Social History Household Members: Significant Other Housing: House Are you a primary ocular care technician to a significant other at home: No Do you presently have visiting nurse or other home services: No Alcohol intake: current Alcohol intake frequency: does not drink Comment: tolerable Patient Tobacco Use Status: Never used Tobacco service: No Physical Exam Vital Signs: Last Vital Signs Temp 97.4 F 10/26/25 12:56 Pulse 94 10/26/25 12:56 BP 138/88 10/26/25 12:56 Pulse Ox 96 10/26/25 12:56 Oxygen Delivery Method Room Air 10/26/25 12:56 BMI result Body Mass Index 46.2 Const General: cooperative, comfortable and no acute distress Orientation/consciousness: patient oriented x3 GI Other: soft, nontender, nondistended, small port site steri-strips c/d/i- center incision strips replaced Neuro General: patient oriented x3 Assessment & Plan Assessment & Plan (1) Morbid obesity: Code(s): E66.01 - Morbid (severe) obesity due to excess calories Category: Medical (2) S/P laparoscopic sleeve gastrectomy: Code(s): Z98.84 - Bariatric surgery status Category: Surgical Plan May shower tomorrow but no bath or submersion of abdomen in water. May start exercise tomorrow.? No abdominal exercises x 6 weeks. Abdominal binder for the next 2 weeks with activity or exercise. Continue meal plan per Dr Armendariz until next f/u in 5 weeks. Reviewed pantoprazole and carafate dosing. Reminded of the pace of drinking 2 mL/min or 1oz per 15 min. Will be emailed link for post op video for review. Can use stool softener or Miralax/MoM for constipation.
[2025-10-26 12:56] VITALS: BP 138/88; PULSE 94; TEMP 36.3; O2SAT 96; BMI 46.2
== END 2025-10-26 13:39 | disposition home or self-care (01) ==
LOC: HO.HBS 12:18
PROVIDERS: PCP Pediatrics; Visit Provider Physician Assistant Surgical
DX: E66.01 Morbid (severe) obesity due to excess calories (principal); Z68.42 Body mass index [BMI] 45.0-49.9, adult; Z90.3 Acquired absence of stomach [part of]; Z98.84 Bariatric surgery status
CPT/HCPCS: 99024

== ENCOUNTER 2025-11-14 12:40 | Outpatient (AMB) | payer OTHER, SELFPAY ==
--- OUTSIDE RECORDS SUMMARY | 2025-11-09 23:59 | XMS_ITS | Continuity of Care Document ---
Author Organization [facility] ion Address [address] [place] [address]- Care Team Providers Care Top Lift Scourer Name Role Phone Angelo Dey MD Primary Care Physician [phone] Encounter [facility] ACCT R [id number] Date(s): 10/10/25 - 11/09/[address] Attending Physician: Michael Rai Admitting Physician: AdmtrMichael Referring Physician: Admtr [id number] Encounter Type: Triage Allergies, Adverse Reactions, Alerts Substance Criticality Severity Reaction Reaction Severity Status clindamycin Active erythromycin Active oxyCODONE Maddie Active sulfADIAZINE Active Dilaudid Hives Active Paxil Active Wheat Active Medications celecoxib 200 mg oral capsule = 200 mg, By Mouth, 2 times a day, # 28 capsule, 0 Refills, Maintenance, 08/13/25 2:13:00 PM EDT, Capsule, [facility], Partial fill upon patient request if the prescription is for a schedule II opioid drug., 158, cm, 08/11/25 21:15:00 EDT, Height, 123.4, kg, 08/11/25 21:15:00 EDT, Dry Weight Start Date: 08/13/25 Stop Date: 08/27/25 Status: Ordered Medication Dispense Status: Completed Quantity: 28.0 Unit: capsule Total Allowed Fills: 1 Fills Dispensed: 0 Indications: Persistent hyperplasia of thymus; Combipatch 0.05 mg-0.14 mg/24 hours transdermal film, extended release 1 patch, Topically, Every Friday and Friday, # 8 patch, 3 Refills, Maintenance, 07/27/25 8:00:00 PMEDT, [id number], Partial fill upon patient request if the prescription is for a schedule IIopioid drug., 1 patch Topically Every Friday and Friday,x28 days, 165, cm, 07/27/25 19:28:00 EDT, Height, 121.5, kg, 07/27/25 19:28:00 EDT, Dry Weight Start Date: 07/27/25 Stop Date: 11/16/25 Status: Ordered Medication Dispense Status: Completed Quantity: 8.0 Unit: patch Total Allowed Fills: 4 Fills Dispensed: 0 custom right knee patellofemoral support brace custom [...] Total Allowed Fills: 1 Fills Dispensed: 0 Estrace Vaginal Cream 0.1 mg/g = 0.1 mg, Vaginally, Daily, weekly for two weeks, then twice weekly for next two weeks then wesea maintenance, # 42.5 Gm, 1 Refills, Maintenance, 07/27/25 11:09:00 PM EDT, Cream, [id number], Partial fill upon patient request if the prescription is for a schedule II opioid drug., 165, cm, 07/27/25 19:28:00 EDT, Height, 121.5, kg, 07/27/25 19:28:00 EDT, Dry Weight Start Date: 07/27/25 Status: Ordered Medication Dispense Status: Completed Quantity: 42.5 Unit: g Total Allowed Fills: 2 Fills Dispensed: 0 Ferrous Gluconate By Mouth, [...] Total Allowed Fills: 1 Fills Dispensed: 0 gabapentin 300 mg oral capsule 300 mg, By Mouth, 3 times a day, # 42 capsule, Refills 0, Tot. Refills 0, Maintenance, 08/13/25 2:13:00 PM EDT, Route to Pharmacy Electronically, [facility], Partial fill upon patient request if the prescription is for a schedule II opioid drug., 158, cm, 08/11/25 21:15:00 EDT, Height,123.4, kg, 08/11/25 21:15:00 EDT, Dry Weight Start Date: 08/13/25 Stop Date: 08/27/25 Status: Ordered Medication Dispense Status: Completed Quantity: 42.0 Unit: capsule Total Allowed Fills: 1 Fills Dispensed: 0 Indications: Persistent hyperplasia of thymus; Glucosamine Chondroitin 3 capsule, By Mouth, Daily, [...] (less than 100 in lifetime) entered on: 08/23/25 Sexual Orientation Self described orien tation: ; Bisexual Sex Sex Representation Female (finding) Patient Care team information Care Team Personnel Name: Angelo Dey MD Position: Reference Physician Member Role: PCP Address: [address] [place] [address] Telecom: Care Team Related Persons Name: JOSE LUIS TIRADO Name: MARRY LAGUERRE Name: CHRISTOPHE COOLEY Insurance Providers Guarantor name: TESSA DUMONTISCOLL [employer]ee[employer] - [employer] [facility] Information #: 1 Payer: [facility] HMO Payer Identifier: PIPER Member Number: [id number] Group Number: [id number] Subscriber Identifier: NA Relationship to Subscriber: spouse Coverage Type: Commercial Managed Care - HMO Coverage Verification Date: Telecom: NA Address:
--- OUTSIDE RECORDS SUMMARY | 2025-11-13 23:59 | XMS_ITS | Continuity of Care Document ---
Author Organization [facility] Address [address] [place] [address] [address], [address] [place] [address]- Care Team Providers Care Herb Grower Name Role Phone Tiburcio VALDEZ, Angelo Primary Care Physician Encounter [facility] Date(s): 10/14/25 - 11/13/25 [facility] [address] [place] [address] [address] [place], [place] [address] Encounter Type: Triage Allergies, Adverse Reactions, Alerts Substance Criticality Severity Reaction Reaction Severity Status clindamycin Active erythromycin Active sulfADIAZINE Active Dilaudid Hives Active oxyCODONE Maddie Active Paxil Active Wheat Active Medications celecoxib 200 mg oral capsule = 200 mg, By Mouth, 2 times a day, # 28 capsule, 0 Refills, Maintenance, 08/13/25 2:13:00 PM EDT, Capsule, [facility], Partial fill upon patient request [...] release 1 patch, Topically, Every Friday and Rick, # 8 patch, 3 Refills, Maintenance, 07/27/25 [...] twice weekly for next two weeks then weely maintenance, # 42.5 Gm, 1 Refills, Maintenance, [...] 2:13:00 PM EDT, Route to Pharmacy Electronically, [facility], Partial fill upon patient request if [...] Position: Reference Physician Member Role: PCP Address: [address] Telecom: Care Team Related Persons Name: JOSE LUIS TIRADO Name: MARRY LAGUERRE Name: CHRISTOPHE COOLEY Insurance Providers Guarantor name: TESSA [place] [employer] [facility] Information #: 1 Payer: [facility] HMO Payer Identifier: NA Member Number: [id number] Group Number: [id number] Subscriber Identifier: NA Relationship to Subscriber: spouse Coverage Type: Commercial Managed Care - HMO Coverage Verification Date: NA Telecom: NA Address: NA
--- NOTE | 2025-11-14 12:30 | A.OFFWM_ITS ---
Intake Intake Visit Reasons: VIDEO PO LSG 10/18/25 Allergies hydromorphone (From Dilaudid) Allergy (Severe, Verified 10/26/25 13:02) Hives sulfamethoxazole (From Bactrim) Allergy (Severe, Verified 10/26/25 13:02) Rash trimethoprim (From Bactrim) Allergy (Severe, Verified 10/26/25 13:02) Rash clindamycin Allergy (Intermediate, Verified 10/26/25 13:02) Rash erythromycin base Allergy (Mild, Verified 10/26/25 13:02) mg flare oxycodone (From Percocet) Allergy (Mild, Verified 10/26/25 13:02) Agitated Sulfa (Sulfonamide Antibiotics) Allergy (Verified 10/26/25 13:02) Rash PFSH Medical History (Updated 10/27/25 @ 00:01 by Background Damayelin) History of open sigmoidectomy (~12/26/15) Anxiety Hypertension Morbid obesity COVID-19 virus infection Depression Hypothyroidism Surgical History (Updated 10/27/25 @ 00:01 by Background Chace) S/P gastric sleeve procedure History of bowel resection H/O colonoscopy History of esophagogastroduodenoscopy (EGD) Hx of thymectomy (~08/11/25) Hx of cholecystectomy (~06/21/18) Family History Mother Diabetes HTN (hypertension) Hyperlipidemia Glaucoma Father Diabetes HTN (hypertension) Hyperlipidemia Skin cancer Primary vitiligo Hx of Minh thyroiditis Social History Household Members: Significant Other Housing: House Are you a primary point of care specialist to a significant other at home: No Do you presently have visiting nurse or other home services: No Alcohol intake: current Alcohol intake frequency: does not drink Comment: tolerable Patient Tobacco Use Status: Never used Tobacco service: No Behavioral Health Assessment Weight Management Therapy Therapy Notes Details Subjective: Patient is status post weight loss surgery on 10/18/2025. Weight at time of surgery was 244 lbs; most recent weight on 11/08/2025 was 229 lbs. She denies pain or complications related to recovery and reports good tolerance of the prescribed meal plan, consisting of two shakes and one bar daily. Mood has been variable; however, she reports good energy and denies symptoms consistent with clinical depression. She is returning to work tomorrow and anticipates that resuming her usual routine will have a positive impact on her mood. She identifies support from family and her therapist. She denies physical hunger but reports intermittent food-related thoughts, particularly when exposed to food cues such as smells or being around others eating. Objective: The patient presents for a post-operative behavioral health follow-up. An emotional check-in was completed to assess mood, recovery, and overall functioning. Psychoeducation was provided regarding common emotional adjustments following bariatric surgery, with focus on differentiating hunger from cravings or food-related thoughts and strategies to address these experiences mindfully. Adherence to Weight Management Program guidelines, including pacing of intake and compliance with meal and exercise plans, was reinforced. Program resources and ongoing support options were reviewed. Assessment/Response: * Mental status: WNL * Risk reported/identified: None Assessment & Plan Assessment & Plan (1) Generalized anxiety disorder: Code(s): F41.1 - Generalized anxiety disorder (2) Panic disorder: Code(s): F41.0 - Panic disorder [episodic paroxysmal anxiety] (3) Major depressive disorder: Code(s): F32.9 - Major depressive disorder, single episode, unspecified (4) Status post bariatric surgery: Code(s): Z98.84 - Bariatric surgery status Plan Patient will continue weekly outpatient therapy to address ongoing mental health needs with her current therapist. She will follow up with this provider in approximately one month for post- operative behavioral health support, with continued focus on meal plan adherence, triggers, and coping strategies. Next appointment scheduled for?12/12/2025 at 11:00 AM (video visit). Telehealth Telehealth Telehealth Platform: [employer] Location of provider rendering services: other (Home office. [place], [place]) Location of patient: address on file Patient Identification confirmed using: Name, : Yes Telehealth method: video Patient verbally consented to treatment: Yes Patient verbally consented to billing insurance company: Yes Patient informed of any privacy concerns related to visit: Yes Minutes spent on Phone/Video with Pt.: 30 [place] [address] Tele Psytx 30 mins Patient Type Established Diagnoses Generalized anxiety disorder F41.1 Panic disorder F41.0 Major depressive disorder F32.9 Status post bariatric surgery Z98.84 Time Spent (min) 30
--- OUTSIDE RECORDS SUMMARY | 2025-11-14 14:33 | XMS_ITS | Encounter Summary ---
Author Organization [facility] Address [address] [place] [address] Phone Care Team Providers Care Pricing Actuary Name Role Phone Angelo Dey MD Primary Care Provider Encounter Details Date Type Department Care Team (Latest Contact Info) Description 10/31/[address] [facility] [address] [place] [address] Megha Rojas, PUNEET [address] [address] [email or web address] Elevated transaminase level (Primary Dx) Social History Tobacco Use Types Packs/Day Years [...] on file documented as of this encounter Plan of Treatment Upcoming Encounters Date Type Department Care Team (Late st Contact Info) Description 04/27/2026 9:15 AM EDT Office Visit [facility] [address] [place] [address] Megha Rojas CNP [address] [address] [email or web address] Scheduled Orders Name Type Priority Associated Diagnoses Orde r Schedule Hepatic Panel (LFTs) Lab Routine Elevated transaminase level Expected: 10/31/2025, Expires: 10/31/2026 documented as of this encounter Visit Diagnoses Diagnosis Elevated transaminase level- Primary documented in this encounter Care Teams Pricing Actuary Relationship Specialty Start Date End Date Angelo Dey MD [address] [place] [address] PCP - General Internal Medicine 06/21/25 documented as of this encounter Additional Source Comments The information contained in this document represents components of the legal health record. It is not the complete legal health record.[facility]
--- OUTSIDE RECORDS SUMMARY | 2025-11-14 14:33 | XMS_ITS | Clinical Summary ---
Author Organization [facility] Address [address] [address] Phone Care Team Providers Care Wardrobe Specialist Name Role Phone Angelo Dey MD Primary Care Provider Allergies Active Allergy Reactions Criticality Noted Date Comments Clindamycin Hcl Rash Low 06/15/2025 Erythromycin Asthenia High 06/15/2025 Hydromorphone Hives 06/15/2025 Oxycodone Feeling Irritable Low 06/15/2025 Paroxetine Hcl 06/15/2025 Sulfa (Sulfonamide Antibiotics) 05/19 Medications lisinopril (PRINIVIL,ZESTRIL) 20 MG tablet Take 1 tablet by mouth every morning. 5 Active liothyronine (CYTOMEL) 5 MCG tablet Take 1 tablet by mouth 2 (two) times a day. 5 Active levothyroxine (SYNTHROID, LEVOTHROID) 75 MCG tablet Take 75 mcg by mouth every morning. 5 Active mycophenolate mofetil (CELLCEPT) 500 mg tablet Take 1 tablet by mouth 2 (two) times a day. 5 Active escitalopram oxalate (LEXAPRO) 10 MG tablet Take 1 tablet by mouth every morning. 5 Active pyRIDostigmine (MESTINON) 60 mg tablet Take 30 mg by mouth. 5 Active pyRIDostigmine (MESTINON) 180 mg CR tablet Take 180 mg by mouth daily. 5 Active docosahexaenoic acid/epa (FISH OIL ORAL) Take by mouth. Activ e glucosamine sulfate (GLUCOSAMINE ORAL) Take by mouth. Active Lactobacillus acidophilus (PROBIOTIC ORAL) Take by mouth. Active MULTIVITAMIN ORAL Take by mouth. Active cholecalciferol, vitamin D3, (VITAMIN D3 ORAL) Take by mouth. Active cefuroxime (CEFTIN) 250 MG tablet Active albuterol 90 mcg/actuation inhaler INHALE 2 PUFFS EVERY 4 HOURS NEEDED FOR 14 DAYS Active doxycycline hyclate (VIBRAMYCIN) 100 MG capsule Take 1 capsule twice a day by oral route for 10 days. Active fluconazole (DIFLUCAN) 150 MG tablet Active fluticasone propionate (FLONASE ALLERGY RELIEF) 50 mcg/actuation nasal spray [place] 1 spray every day by intranasal route. Active levoFLOXacin (LEVAQUIN) 750 MG tablet Take 750 mg by mouth daily. Active ondansetron (ZOFRAN-ODT) 4 MG disintegrating tablet DISSOLVE 1 TABLET BY MOUTH EVERY 12 HOURS NEEDED FOR NAUSEA AND VOMITING Active pantoprazole (PROTONIX) 40 MG tablet Take 40 mg by mouth daily. Active sucralfate (CARAFATE) 100 mg/mL suspension TAKE 10 ML BY MOUTH TWICE A DAY 5 Active Encounters Date Type Department Care Team Description 10/31/2025 Orders Only [facility] [address] [place] [phone] Megha Rojas CNP Elevated transaminase level (Primary Dx) 10/27/2025 11:00 AM EST Office Visit [facility] [address] [place] [phone] Unknown, Unknown, Megha Davidson CNP Fatty liver (Primary Dx); History of adenomatous polyp of colon 10/27/2025 Orders Only [facility] [address] [place] [address] Provider, MD Radha from Last 3 Months Social History Tobacco [...] Sign Reading Time Taken Comments Blood Pressure 117/78 10/27/2025 11:04 AM EST Pulse 106 10/27/2025 11:04 AM EST Temperature 35.8 C (96.4 F) 06/21/2025 8:28 AM EDT Respiratory Rate 25 06/21/2025 8:38 AM EDT Oxygen Saturation 98% 06/21/2025 8:38 AM EDT Inhaled Oxygen Concentration - - Weight 108.4 kg (239 lb) 10/27/2025 11:04 AM EST Height 157.5 cm (5' 2 ) 06/15/2025 3:19 PM EDT Body Mass Index 43.71 06/15/2025 3:19 PM EDT Plan of Treatment Upcoming Encounters Date Type Department Care Team (Late st Contact Info) Description 04/27/2026 9:15 AM EDT Office Visit [facility] [address] [place] [address] Megha Rojas, DOUPER [address] [address] [email or web address] Health Maintenance Due Date Last Done [...] 08/23/2022, Additional history exists MAMMOGRAM 12/22/2025 12/22/2023, 01/2023, 12/05/2021 COLONOSCOPY 06/23/2028 06/21/2025 COLORECTAL CANCER [...] Procedure Name Priority Date/Time Associated Diagnosis Comments OUTSIDE LAB Routine 10/27/2025 2:06 PM EST LFTS (HEPATIC PANEL) Routine 10/27/2025 11:57 AM EST Fatty liver OUTSIDE US IMAGING REPORT ONLY Routine 09/27/2025 2:24 PM EST ENDOSCOPY, COLON 06/21/2025 8:08 AM EDT from Last 3 Months or Most Recently Relevant to Health Maintenance Results * Outside Lab (Non-MGB) (10/27/2025 2:06 PM EST) Historical Provider MD LAB BLOOD BKR ORDERABLES Final Result * (ABNORMAL) Hepatic Panel (LFTs) (10/27/2025 11:57 AM EST) AST 27 <33 U/L 10/27/2025 5:15 PM EST [facility] ALT 55(H) <34 U/L 10/27/2025 5:15 PM [facility] Alkaline Phosphatase 90 40 - 130 U/L 10/27/2025 5:15 PM [facility] Bilirubin, Total 0.2 0.0 - 1.2 mg/dL 10/27/2025 5:15 PM [facility] Bilirubin, Direct 0.1 0.0 - 0.3 mg/dL 10/27/2025 5:15 PM [facility] Total Protein 7.9 6.4 - 8.3 g/dL 10/27/2025 5:15 PM [facility] Albumin 4.6 3.5 - 5.2 g/dL 10/27/2025 5:15 PM [facility] Globulin 3.3 1.9 - 4.1 g/dL 10/27/2025 5:15 PM [facility] Blood (Blood) Venipuncture / Unknown 10/27/2025 11:57 AM EST 10/27/2025 11:57 AM EST Megha Rojas CNP LAB BLOOD BKR ORDERABLES Final Result [address] [address] * Outside US Imaging??Report Only (09/27/2025 2:24 PM EST) us Historical Provider MD CHILDRESS US OP Final Res ult * ENDOSCOPY, COLON (06/21/2025 8:08 AM EDT) Narrative Transcriptions Toni Montague MD - 06/21/2025 8:08 AM EDT [facility] Patient Name: Joanna Elise Attending MD:: TONI MONTAGUE MD, Procedure Date: 06/21/2025 8:08 AM Date of : 1980 Age: 45 Admit Type: Outpatient Gender: Female Room: [place] [address] Referring MD: Angelo Dey MD Exam Type: [...] bowel preparation was evaluated using the BBPS ([place] Bowel Preparation Scale) with scores of:Right Colon [...] minimal. There was evidence of a prior gma-ao-dwlrbyj-colonic anastomosis in the sigmoid colon. This was [...] 8:08 AM Procedure Code(s): --- Professional --- 90768, Colonoscopy, flexible; with removal of tumor(s), polyp(s), or other lesion(s) by snare technique --- Technical --- 37916, Colonoscopy, flexible; with removal of tumor(s), polyp(s), [...] or abscess without bleeding CPT copyright 2021 [employer]. All rights reserved. The codes documented in this report are preliminary and upon superintendent oil field drilling reviewmay be revised to meet current compliance requirements. Procedure Date: 06/21/2025 8:08:[address] [place] [id number] Angelo Dey MD GI PROCEDURE ORDERABLE S Final Result from Last 3 Months or Most Recently Relevant to Health Maintenance Insurance [facility] [place] [address] [place] [address] HMO Care Teams Wardrobe Specialist Relationship Specialty Start Date End Date Angelo Dey MD [address] [place] [address] PCP - General Internal Medicine 06/21/25 Additional Source Comments The information contained in this document represents components of the legal health record. It is not the complete legal health record.[facility]
--- OUTSIDE RECORDS SUMMARY | 2025-11-14 14:33 | XMS_ITS | Continuity of Care Document ---
Author Organization [facility], Main Office Address [address] [place] [address] Care Team Providers Care Noc Analyst Name Role Phone ANGELO RING Primary Care Provider [phone] AIYANA OBREGON Neurologist [facility] Hog Scraper [phone] [facility] SCHEDULING DEPT General Production Laborer [facility] Appeals Coordinator IRINEO LANGFORD Vascular Surgeon [facility] Sleep Medicine JJ MEDRANO Thoracic Surgeon [phone] DANNA PEACE Bariatric Surgeon [phone] MISHA MAYNARD Naturopathic Medicine [phone] Assessment No assessment recorded. Plan of Treatment Reminders Order Date Submit Date Provider Last Modified By Organization Details Last Modified Time Details Appointments FOLLOW UP 30MIN 2025 09:00A Main Ring MD Not available Not available Not available Lab TSH + free T4, serum 2024 026 [email or web address] [facility] (Centralized Electronic Ordering - All Locations), Patient Can Go To The Location Of Their Choice, [id number] 09/08/2025 09:16:45 T3, free, serum or plasma 2024 026 [email or web address] [facility] (Centralized Electronic Ordering - All Locations), Patient Can Go To The Location Of Their Choice, [id number] 09/08/2025 09:16:45 HbA1c (hemog lobin A1c), blood 2024 026 awychowski [facility] (Centralized Electronic Ordering - All Locations), Patient Can Go To The Location Of Their Choice, [id number] 09/08/2025 09:16:44 lipid panel, serum 2024 026 awychowski [facility] (Centralized Electronic Ordering - All Locations), Patient Can Go To The Location Of Their Choice, [id number] 09/08/2025 09:16:44 CMP, serum or plasma 2024 026 awychowski [facility] (Centralized Electronic Ordering - All Locations), Patient Can Go To The Location Of Their Choice, [id number] 09/08/2025 09:16:45 Referral gyneco logist referr oseas - Ravi harvey to willyu le 2024 [email or web address] Not available 09/08/2025 09:26:11 physic al medici ne and rehabi litati on referr al - for eval of left should er pain 2024 [email or web address] Alexandre vincent MD, [address], [address], [place], [address], 09/08/2025 09:26:11 physic al therap ist referr al - for left should er PT for bieps tendin itis/r otator cuff bursit is 2024 [email or web address] [facility] [place], [address], [place], [address], 09/08/2025 09:26:11 nutrit ionist /dieti jocelin referr al 2024 Not available 09/09/2025 08:43:18 Procedures None record ed. Surgeries None record ed. Imaging MAMMO, screen ing, bilate ral - Perfor m Diagno stic Mammog daniella and Breast Ultras ound if needed / Perfor m Ultras ound Guided Aspira tion and/or Breast Biopsy if warran rafia 2024 [facility], [address] [place] [address], [place], [address], 09/08/2025 09:26:11 Medication Orders None record ed. Patient TargetsNo targets recorded. Patient Instructions Encounter Date Encounter Id Patient Instructions Last Modified By Organization Details Last Modified Time 09/08/2025 [id number] high cholesterol: care instructions [facility] Not available 09/08/2025 09:16:45 Cervical Cancer Screening awychowski Not available 09/08/2025 09:16:45 biceps tendinitis: exercises [email or web address] Not available 09/08/2025 09:16:44 rotator cuff: exercises awychowski Not available 09/08/2025 09:16:44 Starting a Weight-Loss Plan: Care Instructions [facility] Not available 09/08/2025 09:16:44 Nutrition Referral and Weight Management Follow-up Information [facility] Not available 09/08/2025 09:16:44 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 Interpretive Naturalist/dietitian Refer ral for Body mass index 40+ - severely obese Referring Physician: Family Celeste Murillo, Encounter Date: 09/08/2025 General Production Laborer Referral for Sc reening for malignant neoplasm of cervix Patient to schedule Referring Physician: Family Celeste Murillo, Encounter Date: 09/08/2025 Physical Medicine And Rehabi litation Referral for Pain of left shoulder region for eval of left shoulder pain Referring Physician: Family Lidia Medicine, Encounter Date: 09/08/2025 Physical Therapist Referral for Pain of left shoulder region for left shoulder PT for bieps tendinitis/rotator cuff bursitis Referring Physician: Family Lidia Medicine, Encounter Date: 09/08/2025 Results Created Date Observation Date Name Description Value Unit Range Abnormal Flag Note LastModifiedBy Organization Detail LastModifiedTime 09/27/2009/27/2025 liver elast ograp hy, mecha nical ly induc ed shear wave (PROC ) No observ ation record ed. [facility] (Medical Records) [address], [place], [address], 09/28/2025 09:08:06 11/04/20 25 11/03/2025 US, rhsyle x, manishaou s, extre mity, compl ete No observ ation record ed. [facility] [address] [address], [place], [address], 11/06/2025 14:36:40 Result Notes None recorded. Problems Name Problem SNOMED Code Status Onset Date Resolution Date Notes Provider Name and Address Organization Details Recorded Time Body mass index 30+ - obesity 878323721 Completed 07/06/2020 Cassia Mcpherson MA null, [facility] 0 15:05:27 Pain of multiple joints 49542398 Active Not Available [facility] 3 13:43:23 Mixed anxiety and depressi ve disorder 868381608 Completed 04/02/2017 Angelo Ring MD [address] [facility] [address], [place], [address] , [facility] 7 10:20:46 Abdomina l pain 34397985 Completed 03/28/2016 Angelo Ring MD [address] [facility] [address], [place], [address] , [facility] 6 21:33:38 Divertic ular disease 278604175 Active s/p partial colectom y Not Available [facility] 3 13:43:23 Diplopia 32961987 Active Not Available [facility] 3 13:43:23 Floaters in visual field 759459685 Completed 03/28/2016 Angelo Ring MD [address] [facility] [address], [place], [address] , [facility] 6 21:33:38 Headache 21874259 Completed 04/02/2017 Angelo Ring MD [address] [facility] [address], [place], [address] , [facility] 7 10:20:58 Myasthen ia gravis 79634889 Active seronega tive Angelo Ring MD [address] [facility] [address], [place], [address] , [facility] 5 06:32:36 Acne 21994916 Completed 04/02/2017 Angelo Ring MD [address] [facility] [address], [place], [address] , [facility] 7 10:20:27 Hypergly cemia 52783329 Completed 04/02/2017 Angelo Ring MD [address] [facility] [address], [place], [address] , [facility] 7 10:21:18 Vitiligo 34393436 Active Not Available [facility] 3 13:43:23 Autoimmu ne polyendo crinopat hy 01032405 Active Not Available [facility] 3 13:43:23 Malaise and fatigue 303310270 Completed 201205/31/2014 IMPRESSI ON: COUPLED TO CHEST [...] 4:18PM BY CASSIA MCPHERSON MA, ANNOTATI ON/PINEDA DUM Angelo Ring MD [address] [facility] [address], [place], [address] , [facility] 6 21:33:38 History of infectio us disease 699670427 Completed 201205/31/2014 RECORDED 01/28/20 13 4:18PM BY CASSIA MCPHERSON MA, ANNOTATI ON/ADDEN DUM Angelo Ring MD [address] [facility] [address], [place], [address] , [facility] 6 21:33:38 Immuniza tion refused Completed 201205/31/2014 RECORDED 01/28/20 13 4:18PM BY CASSIA MCPHERSON MA, ALEX ON/PINEDA Ring MD [address] [facility] [address], [place], [address] , [facility] 6 21:33:38 Malaise and fatigue 744756869 Completed 201206/27/2014 IMPRESSI ON: COUPLED TO CHEST [...] MCPHERSON MA, ALEX ON/PINEDA Ring MD [address] [facility] [address], [place], [address] , [facility] 6 21:33:38 History of infectio us disease 597620028 Completed 201206/27/2014 RECORDED 01/28/20 13 4:18PM BY CASISA MCPHERSON MA, ALEX ON/PINEDA Ring MD [address] [facility] [address], [place], [address] , [facility] 6 21:33:38 Immuniza tion refused Completed 201206/27/2014 RECORDED 01/28/20 13 4:18PM BY CASSIA MCPHERSON MA, ALEX ON/PINEDA Ring MD [address] [facility] [address], [place], [address] , [facility] 6 21:33:38 Patient status finding 426675258 Completed 201205/31/2014 RECORDED 05/21/20 13 2:50PM BY GANESH HOPE MA, ALEX ON/PINEDA Ring MD [address], [place], [address] , [facility] 6 21:33:38 Chest pain 24365760 Completed 201205/31/2014 IMPRESSI ON: SYMPTOMS C/W EIA POSSIBLE ANXIETY COMPONEN T. WILL TRY PRE EXERCISE MDI. ADVISED TO CALL IF PERSISTA NT/WORSE .; RECORDED 05/21/20 13 2:50PM BY GANESH HOPE MA, CAROLINEATI ON/PINEDA Ring MD [address], [place], [address] , [facility] 6 21:33:38 Tachycar effie 4936432 Completed 201205/31/2014 IMPRESSI ON: WILL SCREEN FOR CONDUCTI ON ABNORMAL ITY.; RECORDED 05/21/20 13 2:50PM BY GANESH HOPE MA, ALEX ON/PINEDA Ring MD [address], [place], [address] , [facility] 6 21:33:38 Patient status finding 444814954 Completed 201206/27/2014 RECORDED 05/21/20 13 2:50PM BY GANESH HOPE MA, LAEX ON/PINEDA Ring MD [address], [place], [address] , [facility] 6 21:33:38 Chest pain 12910878 Completed 201206/27/2014 IMPRESSI ON: SYMPTOMS C/W EIA POSSIBLE ANXIETY COMPONEN T. WILL TRY PRE EXERCISE MDI. ADVISED TO CALL IF PERSISTA NT/WORSE .; RECORDED 05/21/20 13 2:50PM BY GANESH HOPE MA, CAROLINEATI ON/PINEDA Ring MD [address], [place], [address] , [facility] 6 21:33:38 Tachycar effie 4305981 Completed 201206/27/2014 IMPRESSI ON: WILL SCREEN FOR CONDUCTI ON ABNORMAL ITY.; RECORDED 05/21/20 13 2:50PM BY GANESH HOPE MA, ANNOTATI ON/ADDEN DUM Angelo Ring MD [address] [facility] [address], [place], [address] , [facility] 6 21:33:38 Influenz a vaccine needed 02981516384 06 Completed 201205/31/2014 RECORDED 07/31/20 13 10:03AM BY RAMYA BENTON I, NURSE VISIT Angelo Ring MD [address] [facility] [address], [place], [address] , [facility] 6 21:33:38 Influenz a vaccine needed 35518510863 06 Completed 201206/27/2014 RECORDED 07/31/20 13 10:03AM BY RAMYA BENTON I, NURSE VISIT Angelo Ring MD [address] [facility] [address], [place], [address] , [facility] 6 21:33:38 Anaphyla xis 16383854 Completed 201305/31/2014 STORY: UNKNOWN CAUSE OCT 2012; RECORDED 02/25/20 14 8:52AM BY ANGELO Siegel MD, ANNOTATI ON/ADDEN DUM Angelo Ring MD [address] [facility] [address], [place], [address] , [facility] 6 21:33:38 Autoimmu ne disease 72522212 Completed 201305/31/2014 RECORDED 02/25/20 14 8:52AM BY ANGELO Siegel MD, ANNOTATI ON/ADDEN DUM Angelo Ring MD [address] [facility] [address], [place], [address] , [facility] 6 21:33:38 Screenin g for malignan t neoplasm of cervix Completed 201305/31/2014 RECORDED 02/25/20 14 8:30AM BY CASSIA MCPHERSON MA, ANNOTATI ON/ADD DUM Angelo Ring MD [address] [address], [place], [address] , [facility] 6 21:33:38 Lyme disease 86189782 Completed 201305/31/2014 IMPRESSI ON: SXS CONSISTE NT WITH EARLY LYME, WILL TREAT. 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 I DO NOT SEE ANY BELLS PALSY AT THIS POINT. REASSURE Janessa ZARATE THAT SHE HAS NO DROOP; RECORDED 02/25/20 14 8:52AM BY ANGELO Siegel MD, ANNOTATI ON/ADD DUM Angelo Ring MD [address] [address], [place], [address] , [facility] 6 21:33:38 Panic disorder without agorapho litzy 92258005 Completed 201305/31/2014 RECORDED 02/25/20 14 8:52AM BY ANGELO Siegel MD, ANNOTATI ON/ Angelo Ring MD [address] [address], [place], [address] , [facility] 6 21:33:38 Anaphyla xis 45377246 Completed 201306/27/2014 STORY: UNKNOWN CAUSE OCT 2012; RECORDED 02/25/20 14 8:52AM BY ANGELO Siegel MD, ANNOTATI ON/ADD DUM Angelo Ring MD [address] [address], [place], [address] , [facility] 6 21:33:38 Autoimmu ne disease 24534255 Completed 201306/27/2014 RECORDED 02/25/20 14 8:52AM BY ANGELO Siegel MD, ANNOTATI ON/ DUM Angelo Ring MD [address] [facility] [address], [place], [address] , [facility] 6 21:33:38 Screenin g for malignan t neoplasm of cervix Completed 201306/27/2014 RECORDED 02/25/20 14 8:30AM BY CASSIA MCPHERSON MA, ANNOTATI ON/ DUM Angelo Ring MD [address] [facility] [address], [place], [address] , [facility] 6 21:33:38 Lyme disease 56840742 Completed 201306/27/2014 IMPRESSI ON: SXS CONSISTE NT WITH EARLY LYME, WILL TREAT. 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 I DO NOT SEE ANY BELLS PALSY AT THIS POINT. REASSURE Janessa ZARATE THAT SHE HAS NO DROOP; RECORDED 02/25/20 14 8:52AM BY ANGELO Siegel MD, ANNOTATI ON/ Angelo Ring MD [address] [address], [place], [address] , [facility] 6 21:33:38 Panic disorder without agorapho litzy 62462804 Completed 201306/27/2014 RECORDED 02/25/20 14 8:52AM BY ANGELO Siegel MD, ANNOTATI ON/ Angelo Ring MD [address] [address], [place], [address] , [facility] 6 21:33:38 Anxiety state 627618549 Completed 201303/28/2016 Angelo Ring MD [address] [address], [place], [address] , [facility] 6 21:33:38 Hashimot o thyroidi tis 13699641 Active 2013 Not Available [facility] 3 13:43:23 Cough 74174876 Completed 201312/09/2014 IMPRESSI ON: LUNGS ARE CLEAR, ALREADY ON AUGMENTI N FOR SINUSITI S WILL COMPLETE COURSE, REC. MUCOLYTI CS/HYDRA TION; RECORDED 03/03/20 14 11:53AM BY CHARLES PATHAK PA-C, OFFICE VISIT Angelo Ring MD [address] [facility] [address], [place], [address] , [facility] 6 21:33:38 Depressi ve disorder 27773581 Completed 201303/28/2016 Angelo Ring MD [address] [facility] [address], [place], [address] , [facility] 6 21:33:38 Recurren t major depressi ve episodes , in full remissio n Completed 201311/05/2019 Removal Reason: negative Angelo Ring MD [address] [facility] [address], [place], [address] , [facility] 9 09:34:27 Adult health examinat ion Completed [...] [address], [place], [address] , [facility] 6 21:33:38 Celiac disease 318451164 Completed 201304/02/2017 STORY: BLOOD TESTS NEGATIVE FOR CELIAC Angelo Ring MD [address] [facility] [address], [place], [address] , [facility] 7 10:21:10 Obesity 681132805 Completed 201304/02/2017 IMPRESSI ON: POTENTIA L ADVERSE HEALTH CONSEQUE NCES DISCUSSE D. INCREASE D PHYSICAL ACTIVITY AND APPROPRI ATWE DIETARY CHANGES ADVISED. ; RECORDED 03/03/20 14 9:43AM BY CALEB HENRY MA, OFFICE VISIT Cherie Hannah PA-C [address] [address], [place], [address] , [facility] 3 15:22:51 Chronic sinusiti s 26115269 Completed 201305/31/2014 IMPRESSI ON: C/W POST VIRAL SECONDAR Y BACTERIA L PROCESS. CALL INB/WORS E.; RECORDED 03/03/20 14 9:43AM BY CALEB HENRY MA, ANNOTATI ON/PINEDA Ring MD [address] [address], [place], [address] , [facility] 6 21:33:38 Vitamin D deficien cy 12740617 Active 2013 Not Available [facility] 3 13:43:23 Adult health examinat ion Completed 201306/27/2014 IMPRESSI ON: IMMUNIZA TION STATUS UTD WILL SCREEN BASED ON RISK FACTORS. REGULAR DENTAL CARE AND SEATBELT USE ADVISED. DISTRACT ED DRIVING DISCUSSE D. CERVICAL CANCER SCREENIN G UTD. ADVANCE DIRECTIV ES DISCUSSE D AND IN PLACE.; RECORDED 03/03/20 14 9:43AM BY CALEB HENRY MA, ALEX ON/PINEDA Ring MD [address] [address], [place], [address] , [facility] 6 21:33:38 Chronic sinusiti s 47043984 Completed 201306/27/2014 IMPRESSI ON: C/W POST VIRAL SECONDAR Y BACTERIA L PROCESS. CALL INB/WORS E.; RECORDED 03/03/20 14 9:43AM BY CALEB HENRY MA, ANNOTATI ON/PINEDA Ring MD [address] [address], [place], [address] , [facility] 6 21:33:38 Divertic ulitis of colon 387115299 Completed 201404/02/2017 Angelo Ring MD [address] [facility] [address], [place], [address] , [facility] 7 10:20:23 Macrocyt osis 931923192 Active 2018 Not Available [facility] 3 13:43:23 Irritabl e bowel syndrome 02713275 Active 2018 Not Available [facility] 3 13:43:23 Recurren t major depressi on in partial remissio n 18016084 Active 2018 Not Available [facility] 3 13:43:23 Essentia l hyperten lucia 47659230 Active 2019 Not Available [facility] 3 13:43:24 Anti-nuc lear factor detected 932978400 Active 2020 Not Available [facility] 3 13:43:23 Herpes zoster 6318784 Active 2020 Not Available [facility] 3 13:43:23 History of SARS-CoV -2 05220071471 1161312 Active 2021 Not Available [facility] 3 13:43:23 Tinea pedis 8170515 Active 2021 Not Available [facility] 3 13:43:24 Generali zed anxiety disorder 18409560 Active 2021 Not Available [facility] 3 13:43:23 Prediabe rema 618657759 Active 2022 Not Available [facility] 3 13:43:24 Hyperlip idemia 59834825 Active 2022 Not Available [facility] 3 13:43:23 Pain of right heel 86621364899 51984 Completed 202208/05/2023 Angelo Ring MD [address], [place], [address] , [facility] 3 13:48:40 Candidia sis of vagina 26600453 Completed 202208/05/2023 Angelo Ring MD [address] [facility] [address], [place], [address] , [facility] 3 13:35:30 Snoring 13495219 Completed 202208/05/2023 Angelo Ring MD [address] [facility] [address], [place], [address] , [facility] 3 13:48:55 Obstruct kathy sleep apnea of adult 26188808446 03 Active 2022 Not Available [facility] 3 13:43:23 Morbid obesity 933254040 Active 2022 Not Available [facility] 3 13:43:23 Family history of malignan t melanoma 630513411 Active 2023 Angelo Ring MD [address] [facility] [address], [place], [address] , [facility] 4 17:18:08 Body mass index 40+ - severely obese 260553972 Active 2023 Angelo Ring MD [address] [facility] [address], [place], [address] , [facility] 4 09:39:33 Venous insuffic iency of lower limb 017884612 Active 2024 Angelo Rign MD [address] [facility] [address], [place], [address] , [facility] 5 14:24:45 Acute pharyngi tis 345074906 Completed 202402/22/2025 Angelo Ring MD [address] [facility] [address], [place], [address] , [facility] 5 15:16:34 Moderate dehydrat ion 12234672092 05 Completed 202402/22/2025 Angelo Ring MD [address] [facility] [address], [place], [address] , [facility] 5 15:16:25 Food-bor ne gastroen teritis 315674407 Completed 202402/22/2025 Angelo Ring MD [address] [facility] [address], [place], [address] , [facility] 5 15:16:36 Axillary hidraden itis suppurat noah 204237600 Completed 202405/26/2025 Angelo Ring MD [address] [facility] [address], [place], [address] , [facility] 5 10:50:03 Pain of knee region 1390731617 Active 2024 Angelo Ring MD [address], [place], [address] , [facility] 5 16:11:12 Steatoti c liver disease 565129124 Active 2024 Angelo Ring MD [address], [place], [address] , [facility] 5 09:22:22 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 43925893268 479371 Active 2024 Angelo Ring MD [address], [place], [address] , [facility] 5 12:58:57 Disorder of thymus gland 48560845 Completed 202409/08/2025 Angelo Ring MD [address], [place], [address] , [facility] 5 09:11:11 Benign adenomat ous neoplasm 598357012 Active 2024 Angelo Ring MD [address], [place], [address] , [facility] 5 15:48:13 Pain of left shoulder region Active 2024 Angelo Ring MD [address], [place], [address] , [facility] 5 09:01:02 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 Procedures Surgical History Date Name Laterality Status Provider Name and Address Organization Details Recorded Time 10/18/20 25 laparoscopic sleeve gastrectomy completed Kristina Jenkins [facility] 10/19/2025 14:06:08 08/11/20 25 total thymectomy completed Angelo Ring MD [address] [facility], [place], [address], [facility] 08/17/2025 13:07:18 06/21/20 25 colonoscopy completed Angelo Ring MD [address] [facility] [address], [place], [address], [facility] 09/08/2025 08:54:04 01/06/20 25 Most Recent Mammogram completed Lizeth Herrera [facility] 01/06/2025 11:27:53 12/22/19 24 Mammogram both breasts completed Charles Jack [place] [facility] 09/07/2024 09:03:27 12/20/19 23 Mammogram both breasts completed Charles Jack [facility] 08/05/2023 13:06:43 12/05/19 22 Mammogram Screening completed Liyah Sheikh [facility] 12/28/2021 14:01:53 03/19/20 20 Date of Last Pap Smear completed Cassia Mcpherson [place] [facility] 07/06/2020 15:07:41 06/21/20 18 Cholecystectomy completed Angelo Ring MD [address] [address], [place], [address], [facility] 06/23/2018 10:10:03 12/26/19 16 Gastrointestinal Surgery completed Angelo Ring MD [address] [address], [place], [address], [facility] 12/27/2015 08:41:03 03/15/20 11 Date of Last Colonoscopy completed Cassia Mcpherson [facility] 03/28/2016 08:32:59 03/15/20 11 Colonoscopy completed Cassia Mcpherson [facility] 03/28/2016 08:33:00 Dxa bone density study [facility] 04/02/2017 09:39:01 Imaging Results None recorded. Procedure Notes None recorded. Medical Equipment None Reported. Allergies Allergen ID Allergen Name Allergen Category Reaction Reaction Severity Criticality Documentation Date Start Date Code Code System Note Provider Name and Address Organization Details Recorded Time 02492 Substance with sulfonami de structure and antibacte rial mechanism of action (substanc e) medicatio n hives moderate Not available 12/09/20142013 80362 8003 SNOMED REACT ION: [facility] 11:01:46 58822 acetamino phen / oxycodone medicatio n other mild Not available 12/09/2014 72507 3 RxNorm agita tion Angelo Ring MD [address], [address], [facility] 5 08:52:25 22543 Dilaudid medicatio n rash mild Not available 01/03/20162015 61248 3 RxNorm hives ,rash , itchi ness, repor rafia [facility] 6 08:13:55 10151 erythromy morro medicatio n other moderate Not available 03/28/20162015 4053 RxNorm MG flare Angelo Ring MD [address], [place], [address], [facility] 6 09:06:27 05751 amoxicill in medicatio n abdominal pain severe Not available 02/01/20192018 723 RxNorm Iris Lutz LPN null, [facility] 9 09:36:51 24752 Bactrim medicatio n Not available Not available Not available 02/28/2020 99684 9 RxNorm Gita Money null, [facility] 0 10:20:34 71687 cephalexi n medicatio n rash moderate Not available 12/24/2022 2231 RxNorm Charles Jack MA null, [facility] 3 14:38:30 33372 bupropion Not available other mild Not available 12/24/2022 41252 RxNorm eleva rafia BP Not Available [facility] 3 17:58:18 4228 clindamyc in hydrochlo ride medicatio n hives moderate Not available 05/31/20142013 80117 RxNorm Cassia Mcpherson MA null, [facility] 6 08:28:39 4229 Paxil medicatio n Not available Not available Not available 05/31/20142013 44037 8 RxNorm REACT ION: ECCHY MOSIS Angelo Ring MD [address], [place], [address], [facility] 7 10:12:34 76336 pseudoeph edrine hydrochlo ride medicatio n Not available Not available Not available 10/24/20252024 64418 RxNorm Not Available [employer] - [employer] - prod 5 10:16:27 57407 oxycodone medicatio n Not available Not available Not available 10/24/20252024 7804 RxNorm Not Available [employer] - [employer] - prod 5 10:16:27 34121 clindamyc in Not available Not available Not available Not available 10/26/2025 2582 RxNorm Not Available [employer] - prod 5 13:59:37 29066 erythromy morro medicatio n Not available Not available Not available 10/26/2025 4053 RxNorm Not Available [employer] - prod 13:59:37 96224 hydromorp shivani medicatio n Not available Not available Not available 10/26/2025 3423 RxNorm Not Available [employer] - prod 13:59:37 22529 sulfadiaz ine medicatio n Not available Not available Not available 10/26/2025 94896 RxNorm Not Available [employer] - prod 5 13:59:37 46182 paroxetin e Not available Not available Not available Not available 10/26/2025 39418 RxNorm Not Available [employer] - prod 13:59:37 06359 sulfameth oxazole medicatio n rash severe high 10/26/20252024 65007 RxNorm Not Available [employer] - prod 5 14:00:38 34728 trimethop rim medicatio n rash severe high 10/26/20252024 24080 RxNorm Not Available [employer] - prod 14:00:38 38541 clindamyc in hydrochlo ride medicatio n rash Not available low 10/26/20252024 15546 RxNorm Not Available [employer] - prod 14:02:09 84935 paroxetin e hydrochlo ride medicatio n Not available Not available Not available 10/26/20252024 50699 0 RxNorm Not Available [employer] - [employer] - prod 14:02:09 Medications Name Sig Start Date Stop Date [...] EVERY FRIDAY AND FRIDAY FOR 28 DAYS 10/19 completed per discharg e summary Not Available Not Available Not Available alprazola [...] le 150 mg tablet TAKE 1 TABLET (150 MG) BY MOUTH DAILY 10/28 completed Not Available Not Available Not Available methylphe nidate 10 mg tablet TAKE 1 TABLET BY MOUTH TWICE A DAY NEEDED FOR 14 DAYS 02/07 completed Not Available Not Available Not Available valacyclo vir 1 gram tablet TAKE 1 TABLET BY MOUTH THREE TIMES A DAY FOR 7 DAYS 02/25 completed Not Available Not Available Not Available sucralfat e 100 mg/mL oral suspensio n TAKE 10 ML BY MOUTH TWICE A DAY active Not Available Not Available No t Available fluconazo le 200 mg tablet Take 1 tablet as needed by oral route for 21 days. 04/03 completed Not Available Not Available Not Available lisinopri l 20 mg tablet TAKE 1 TABLET BY MOUTH EVERY DAY 2024 active Not Available Not Available Not Avai lable prednison e 20 mg tablet DAILY 11/04 [...] completed Not Available Not Available Not Available pantopraz ole 40 mg tablet,de layed release TAKE 1 TABLET BY MOUTH EVERY DAY active Not Available Not Available No t Available clotrimaz ole-betam ethasone 1 %-0.05 % [...] PLEASE SEE ATTACHED FOR DETAILED DIRECTIO NS 10/28 completed Not Available Not Available Not Available levofloxa morro 750 mg tablet TAKE [...] ondansetr on 4 mg disintegr ating tablet DISSOLVE 1 TABLET BY MOUTH EVERY 12 HOURS NEEDED FOR NAUSEA AND VOMITING active Not Available Not Available No t Available mometason e 0.1 % topical cream [...] Vitamin D3 25 mcg (1,000 unit) tablet Take 1 tablet every day by oral route. 2018 active on hold Not Available Not Available Not Avai lable [...] Not Available Not Available iron 1 daily 10/28 completed Not Available Not Available Not Available naltrexon e 3 mcg daily orally 02/23 completed Not Available Not Available Not Available Iron (ferrous sulfate) 1 tab daily orally 04/02 completed Not Available Not Available Not Available Multivita min With Minerals 1 tablet po daily 10/19 completed per discharg e summary Not Available Not Available Not Available cholecalc iferol (vitamin D3) 50 mcg (2,000 unit) capsule Take 1 capsule every day by oral route as directed . 03/30 completed Not Available Not Available Not Available GaviLyte- G 236 gram-22.7 4 gram-6.74 gram-5.86 gram oral solution TAKE 4000ML ORALLY PATIENT HAS INSTRUCT IONS 2 DAYS 04/07 completed Not Available Not Available Not Available Gavilax 17 gram/dose oral powder PLEASE SEE ATTACHED FOR DETAILED DIRECTIO NS 10/28 completed Not Available Not Available Not Available glucos 375 mg-msm 375 mg-collag n2-hyalur on 20 mg-antiar thritic3 tablet Take 2 tablets every day by oral route. 10/28 completed Not Available Not Available Not Available Lo Loestrin Fe 1 mg-10 mcg [...] Relief 50 mcg/actua tion nasal spray,n[employer] [place] 1 spray every day by intranas al [...] (BMI) Body weight Heart rate Oxygen saturation Body temperature Systolic And Diastolic Systolic And Diastolic Provider Name and Address Organization Details Last Updated DateTime 156.85 cm 48.3 kg/m2 499295. 2 g 82 /min 96 % 98.3 [degF] 149/83 mm[Hg] 130/80 mm[Hg] Chantell Montiel [facility] 5 08:34:18 Social History Question Answer Notes LastModified by Organizat ion Details LastModified Time Tobacco Smoking Status Never Smoker Not Available [employer] 09/19/2020 03:36:39 Do You Have An Advance Directive? Yes HCP -Jacklyn, Kaela/Mauro Information not available 06/13/2023 Is Blood Transfusion Acceptable In An Emergency? Yes [id number] Information not available 09/19/2020 What Is Your Level Of Caffeine Consumption? Moderate Coffee [id number] Information not available 09/19/2020 How Much Tobacco Do You Chew? None [id number] Information not available 09/19/2020 What Type Of Diet Are You Following? REGULAR Information not available 07/15/2022 Which Illicit Or Recreational Drugs Have You Used? None [id number] Information not available 09/19/2020 Education Post Graduate [...] Or Greater Than 100 Degrees Fahrenheit? No [email or web address] Information not available 06/28/2020 Are You Or Anyone In Your Household A Health Care Provider Or Emergency Responder? No RealOpsultzki Information not available 06/28/2020 To The Best Of Your Knowledge Have You Been In Close Proximity To Any Individual Who Tested Positive For COVID-19? No RealOpsultDianping Information not available 06/28/2020 *AWV ONLY* Are You Presently Prescribed Opioid Medication By PCP Or Specialist? If YES -Provider Assess The Benefit For Other, Non-opioid Pain Therapies Instead, Even If The Patient Does Not Have OUD But Is Possibly At Risk. No Information not available 07/06/2020 Have You Recently Traveled To A [place] [address] High Risk Area Or Gathering In The Last 10 Days? No Information not available 02/23/2021 What Was The Date Of Your Most Recent Tobacco Screening? 09/08/2025 [email or web address] Information not available 09/08/2025 How Many Children Do You Have? 3 [id number] Information not available 09/19/2020 Do You Use Protection During Sex? No Information not available 07/08/2024 Do You Use Your Seat Belt Or Car Seat Routinely? Yes Information not available 07/15/2022 Seat Belts Used Routinely Yes Information not available 06/13/2023 Are You Sexually Active? Yes [id number] Information not available 09/19/2020 Smoke Alarm In Home Yes Information not available 06/13/2023 Do You Have Smoke And Carbon Monoxide Detectors In Your Home? Yes Information not available 07/15/2022 At What Age Did You Start Smoking Tobacco? 1 [id number] Information not available 09/19/2020 Are You Passively Exposed To Smoke? No Information not available 03/17/2015 How Much Tobacco Do You Smoke? No [id number] Information not available 09/19/2020 Do You Use Sunscreen Routinely? Yes [id number] Information not available 09/19/2020 How Many Years Have You Smoked Tobacco? 0 [id number] Information not available 09/19/2020 Sex: Unknown Functional Status Question Answer Note LastModified by [employer] ion Details LastModified Time Do you use any illicit or recreational drugs? No Information not available 06/13/2023 Do you or have you ever used any other forms of tobacco or nicotine? No Information not available 06/13/2023 What is your level of alcohol consumption? Occasional [email or web address] Information not available 08/05/2023 Do you or have you ever used smokeless tobacco? Never used smokeless tobacco [id number] Information not available 09/19/2020 Are you currently employed? Yes [facility] [employer] [id number] Information not available 09/19/2020 Are you able to walk independently without assistance or assistive devices? YESWOREST Information not available 06/13/2023 Are you able to care for yourself independently? Yes [id number] Information not available 09/19/2020 What is your [...] avail able 04/01/2023 11:29:04 Brother Well adult [email or web address] Not a vailable 09/08/2025 08:20:03 Medical History Condition Response Other N Gout [...] mcg/0.3 mL dose 1 completed Lizeth her [facility] 09/29/2023 09:57:53 COVID-19, mRNA, LNP-S, PF, 30 mcg/0.3 mL dose 1 completed Lizeth her [facility] 09/29/2023 09:57:53 COVID-19, mRNA, LNP-S, PF, 30 mcg/0.3 mL dose 1 completed Lizeth her [facility] 09/29/2023 09:57:53 COVID-19, mRNA, LNP-S, PF, 30 mcg/0.3 mL dose 1 completed Lizeth her [facility] 09/29/2023 09:57:53 Influenza, MDCK, quadrivalent, PF 1 completed Lizeth her [facility] 09/29/2023 09:57:53 Tdap 9 completed Lizeth Herrera null, [facility] 09/29/2023 09:57:53 Influenza, split virus, quadrivalent, PF 8 completed Lizeth Herrera null, [facility] 09/29/2023 09:57:53 Influenza, split virus, quadrivalent, PF 0 completed Lizeth Herrera null, [facility] 09/29/2023 09:57:53 COVID-19, mRNA, LNP-S, PF, 100 mcg/0.5mL dose or 50 mcg/0.25mL dose 2 completed Lizeth Herrera null, [facility] 09/29/2023 09:57:53 Influenza, split virus, quadrivalent, PF 6 completed Lizeth Herrera null, [facility] 09/29/2023 09:57:53 Influenza, split virus, quadrivalent, PF 9 completed Lizeth Herrera null, [facility] 09/29/2023 09:57:53 Influenza, MDCK, quadrivalent, PF 2 completed Lizeth Herrera null, [facility] 09/29/2023 09:57:53 COVID-19, mRNA, LNP-S, bivalent, PF, 50 mcg/0.5 mL or 25mcg/0.25 mL dose 2 completed Lizeth Herrera null, [facility] 09/29/2023 09:57:53 COVID-19, mRNA, LNP-S, PF, 50 mcg/0.5 mL 3 completed Lizeth Herrera null, [facility] 09/29/2023 09:57:53 Influenza, MDCK, trivalent, PF 4 completed Charles Jack PA null, [facility] 09/07/2024 08:52:06 COVID-19, mRNA, LNP-S, PF, mina-sucrose, 30 mcg/0.3 mL 4 completed Charles Jack MA null, [facility] 09/07/2024 08:52:06 Influenza, MDCK, trivalent, PF 5 completed Chantell Montiel MA null, [facility] 09/08/2025 08:26:14 COVID-19, mRNA, LNP-S, PF, mina-sucrose, 30 mcg/0.3 mL 5 completed Chantell Montiel MA null, [facility] 09/08/2025 08:26:14 Tdap 9 completed Lizeth Herrera [facility] 09/29/2023 09:57:53 influenza, seasonal, intradermal, preservative free 3 completed Lizeth her [facility] 09/29/2023 09:57:53 Influenza, split virus, quadrivalent, PF 3 completed Angelo Ring MD [address], [address], [facility] 08/05/2023 13:57:35 Past Encounters Encounter ID Performer Location Encounter Start Date Encounter Closed Date Diagnosis/Indication Diagnosis SNOMED-CT Code Diagnosis ICD10 Code Diagnosis IMO Codes Diagnosis Note [id number] Angelo Ring MD Main Office [address] [address] 09/08/2025 08:19:15 09/08/2025 09:26:11 Adult health examination 846786161 Z00.00 Immunizati on status utd. Will screen based on risk factors. Cervical cancer screening utd, pt to have mammo done this year. Regular dental and ophtho care advised as well as seat belt and sunscreen use. Distracted driving discussed. Advance directives in place. Body mass index 40+ - severely obese 023970091 E66.01 Z68.42 Making strides with Danna olivarez and Dr. Maynard as well. Obstructiv e sleep apnea of adult 3275619450 103 G47.33 On CPAP, tolerating and complying well with it. Screening for malignant neoplasm of cervix 200878512 Z12.4 Will request recent PAP result. Screening for malignant neoplasm of breast 939499495 Z12.39 Due in Dec Pain of le ft shoulder region 1086501477 M25.512 [id number] c/w biceps tendinitis /rotator cuff disease. Try home/forma l PT and PMR consult if persistent /worse. Myasthenia gravis 369827 04 G70.00 Stable and followed by neuro. Off of immunomodu latory meds since thymectomy . Vitamin D deficiency 347 76129 E55.9 Level has been perfect on current dose. Continue as is. Prediabetes 349067808 R7 3.03 Will monitor off of GLP1 agonist Acquired hypothyroidism 593965390 E03.9 75261 On T4?T3 supplement . Hyperlipidemia 07016075 E78.5 Due for reassessme nt, will discuss mgmt based on CVD risk score. Recurrent major depression in partial remission 70419447 F33.41 Under much better control despite increased personal stressors. Well controlled on current SSRI dose. Generalize d anxiety disorder 87172211 F41.1 Stable on current escitalopr am dose and CHRIS therapy. Health Concerns Section Related Observation LastModified by Organization Detai ls LastModified Time None Recorded Concern Status LastModified by Organization Details LastModified Time None Recorded Payers Encounter Date Sequence Insurance Name Policy Number Policy Quick Covered Member ID Quick Member ID Guarantor Name 09/08/2025 1 [facility] [id number] 1 Joanna Elise [id number] Joanna Elise Notes Date Note Type Note Provider Name and Address Organization Details Recorded Time 09/08/2025 text/html Generic HPI TemplateReported by PatientHere for physical, s/p thymectomy, will be going for gastric sleeve in October. Seeing dentist and ophtho regularly. Angelo Ring MD [address] [address], [place], [address], [facility] 09/08/2025 09:24:55 OBGyn Episode No OBEpisode recorded.
--- OUTSIDE RECORDS SUMMARY | 2025-11-14 14:33 | XMS_ITS | Continuity of Care Document ---
Author Organization [facility], Main Office Address [address] [facility] [address] [place] [address] Care Team Providers Care Accounts Receivable Executive Name Role Phone ANGELO RING Primary Care Provider [phone] AIYANA OBREGON Neurologist [facility] Call Or Contact Centre Operator [phone] [facility] SCHEDULING DEPT Slp Teacher JAMAICA DERMATOLOGY Angle Bender IRINEO LANGFORD Vascular Surgeon [phone] [facility] Sleep Medicine JJ MEDRANO Thoracic Surgeon [phone] DANNA PEACE Bariatric Surgeon [phone] MISHA MAYNARD Naturopathic Medicine [phone] Assessment No assessment recorded. Plan of Treatment Reminders Order Date Submit Date Provider Last Modified By Organization Details Last Modified Time Details Appointments FOLLOW UP 30MIN 2025 09:00A Main Ring MD Not available Not available Not available Lab None recorded . Referral None recorded . Procedures None recorded . Surgeries None recorded . Imaging None recorded . Medication Orders None recorded . Patient TargetsNo targets recorded. Patient Instructions Encounter Date Encounter Id Patient Instructions Last Modified By Organization Details Last Modified Time 10/28/2025 [id number] When You Want to Lose Weight: Care Instructions suzy Not available 10/28/2025 09:22:17 At [facility] follow up visit, all current and discharge medications (OTC, herbal therapies, supplements) reviewed and reconciled with patient and or caregiver, including potential side effects, drug interactions, instructions, and the consequences of not taking medication. Reviewed potential barriers to medication adherence, such as side effects from medication or cost of medication. [email or web address] Not available 10/28/2025 08:30:04 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 None Reported. Results Created Date Observation Date Name Description Value Unit Range Abnormal Flag Note LastModifiedBy Organization Detail LastModifiedTime 11/04/20 25 11/03/2025 US, kelly x, samir s, extre mity, compl ete No observ ation record ed. [facility] [address] [facility] [address], [place], [address], 11/06/2025 14:36:40 Result Notes None recorded. Problems Name Problem SNOMED Code Status Onset Date Resolution Date Notes Provider Name and Address Organization Details Recorded Time Body mass index 30+ - obesity 643134293 Completed 07/06/2020 Cassia Mcpherson MA null, [facility] 0 15:05:27 Pain of multiple joints 23397357 Active Not Available [facility] 3 13:43:23 Mixed anxiety and depressi ve disorder 392389047 Completed 04/02/2017 Angelo Ring MD [address] [facility] [address], [place], [address] , [facility] 7 10:20:46 Abdomina l pain 19812583 Completed 03/28/2016 Angelo Ring MD [address] [facility] [address], [place], [address] , [facility] 6 21:33:38 Divertic ular disease 936355754 Active s/p partial colectom y Not Available [facility] 3 13:43:23 Diplopia 21444993 Active Not Available [facility] 3 13:43:23 Floaters in visual field 836459345 Completed 03/28/2016 Angelo Ring MD [address] [facility] [address], [place], [address] , [facility] 6 21:33:38 Headache 12231963 Completed 04/02/2017 Angelo Ring MD [address] [facility] [address], [place], [address] , [facility] 7 10:20:58 Myasthen ia gravis 57535159 Active seronega tive Angelo Ring MD [address] [facility] [address], [place], [address] , [facility] 5 06:32:36 Acne 00462258 Completed 04/02/2017 Angelo Ring MD [address] [facility] [address], [place], [address] , [facility] 7 10:20:27 Hypergly cemia 40899079 Completed 04/02/2017 Angelo Ring MD [address] [facility] [address], [place], [address] , [facility] 7 10:21:18 Vitiligo 62851711 Active Not Available [facility] 3 13:43:23 Autoimmu ne polyendo crinopat hy 41947261 Active Not Available [facility] 3 13:43:23 Malaise and fatigue 973892960 Completed 201205/31/2014 IMPRESSI ON: COUPLED TO CHEST [...] ANNOTATI ON/ADDEN DUM Angelo Ring MD [address] [facility] [address], [place], [address] , [facility] 6 21:33:38 History of infectio us disease 864664138 Completed 201205/31/2014 RECORDED 01/28/20 13 4:18PM BY CASSIA MCPHERSON MA, ALEX ON/PINEDA Ring MD [address], [place], [address] , [facility] 6 21:33:38 Immuniza tion refused Completed 201205/31/2014 RECORDED 01/28/20 13 4:18PM BY CASSIA MCPHERSON MA, ALEX ON/PINEDA Ring MD [address], [place], [address] , [facility] 6 21:33:38 Malaise and fatigue 044519745 Completed 201206/27/2014 IMPRESSI ON: COUPLED TO CHEST [...] MCPHERSON MA, ALEX ON/PINEDA Ring MD [address] [facility] [address], [place], [address] , [facility] 6 21:33:38 History of infectio us disease 690554413 Completed 201206/27/2014 RECORDED 01/28/20 13 4:18PM BY CASSIA MCPHERSON MA, ALEX ON/PINEDA Ring MD [address] [facility] [address], [place], [address] , [facility] 6 21:33:38 Immuniza tion refused Completed 201206/27/2014 RECORDED 01/28/20 13 4:18PM BY CASSIA MCPHERSON MA, ANNOTATI ON/PINEDA Ring MD [address] [address], [place], [address] , [facility] 6 21:33:38 Patient status finding [id number] Completed 201205/31/2014 RECORDED 05/21/20 13 2:50PM BY GANESH HOPE MA, ANNOTATI ON/PINEDA Ring MD [address] [address], [place], [address] , [facility] 6 21:33:38 Chest pain 36837136 Completed 201205/31/2014 IMPRESSI ON: SYMPTOMS C/W EIA POSSIBLE ANXIETY COMPONEN T. WILL TRY PRE EXERCISE MDI. ADVISED TO CALL IF PERSISTA NT/WORSE .; RECORDED 05/21/20 13 2:50PM BY GANESH HOPE MA, ANNOTATI ON/PINEDA Ring MD [address] [address], [place], [address] , [facility] 6 21:33:38 Tachycar effie 7397338 Completed 201205/31/2014 IMPRESSI ON: WILL SCREEN FOR CONDUCTI ON ABNORMAL ITY.; RECORDED 05/21/20 13 2:50PM BY GANESH HOPE MA, ANNOTATI ON/PINEDA Ring MD [address] [address], [place], [address] , [facility] 6 21:33:38 Patient status finding [id number] Completed 201206/27/2014 RECORDED 05/21/20 13 2:50PM BY GANESH HOPE MA, ANNOTATI ON/PINEDA Ring MD [address] [address], [place], [address] , [facility] 6 21:33:38 Chest pain 88652648 Completed 201206/27/2014 IMPRESSI ON: SYMPTOMS C/W EIA POSSIBLE ANXIETY COMPONEN T. WILL TRY PRE EXERCISE MDI. ADVISED TO CALL IF PERSISTA NT/WORSE .; RECORDED 05/21/20 13 2:50PM BY GANESH HOPE MA, ANNOTATI ON/ADDEN DUM Angelo Ring MD [address] [facility] [address], [place], [address] , [facility] 6 21:33:38 Tachycar effie 1963351 Completed 201206/27/2014 IMPRESSI ON: WILL SCREEN FOR CONDUCTI ON ABNORMAL ITY.; RECORDED 05/21/20 13 2:50PM BY GANESH HOPE MA, ANNOTATI ON/ADDEN DUM Angelo Ring MD [address] [facility] [address], [place], [address] , [facility] 6 21:33:38 Influenz a vaccine needed 39637511608 06 Completed 201205/31/2014 RECORDED 07/31/20 13 10:03AM BY RAMYA BENTON I, NURSE VISIT Angelo Ring MD [address] [facility] [address], [place], [address] , [facility] 6 21:33:38 Influenz a vaccine needed 93444110958 06 Completed 201206/27/2014 RECORDED 07/31/20 13 10:03AM BY RAMYA BENTON I, NURSE VISIT Angelo Ring MD [address] [facility] [address], [place], [address] , [facility] 6 21:33:38 Anaphyla xis 95433604 Completed 201305/31/2014 STORY: UNKNOWN CAUSE OCT 2012; RECORDED 02/25/20 14 8:52AM BY ANGELO Siegel MD, ANNOTATI ON/ADDEN DUM Angelo Ring MD [address] [facility] [address], [place], [address] , [facility] 6 21:33:38 Autoimmu ne disease 12879205 Completed 201305/31/2014 RECORDED 02/25/20 14 8:52AM BY ANGELO Siegel MD, ANNOTATI ON/ADD DUM Angelo Ring MD [address] [facility] [address], [place], [address] , [facility] 6 21:33:38 Screenin g for malignan t neoplasm of cervix Completed 201305/31/2014 RECORDED 02/25/20 14 8:30AM BY CASSIA MCPHERSON MA, ANNOTATI ON/ADD DUM Angelo Ring MD [address] [facility] [address], [place], [address] , [facility] 6 21:33:38 Lyme disease 59751799 Completed 201305/31/2014 IMPRESSI ON: SXS CONSISTE NT WITH EARLY LYME, WILL TREAT. 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 I DO NOT SEE ANY BELLS PALSY AT THIS POINT. REASSURE Shine ZARATE THAT SHE HAS NO DROOP; RECORDED 02/25/20 14 8:52AM BY ANGELO Siegel MD, ANNOTATI ON/ DUM Angelo Ring MD [address] [address], [place], [address] , [facility] 6 21:33:38 Panic disorder without agorapho litzy 18301479 Completed 201305/31/2014 RECORDED 02/25/20 14 8:52AM BY ANGELO Siegel MD, ANNOTATI ON/ DUM Angelo Ring MD [address] [facility] [address], [place], [address] , [facility] 6 21:33:38 Anaphyla xis 52157650 Completed 201306/27/2014 STORY: UNKNOWN CAUSE OCT 2012; RECORDED 02/25/20 14 8:52AM BY ANGELO Siegel MD, ANNOTATI ON/ADD DUM Angelo Ring MD [address] [address], [place], [address] , [facility] 6 21:33:38 Autoimmu ne disease 61235328 Completed 201306/27/2014 RECORDED 02/25/20 14 8:52AM BY ANGELO Siegel MD, ANNOTATI ON/ DUM Angelo Ring MD [address] [address], [place], [address] , [facility] 6 21:33:38 Screenin g for malignan t neoplasm of cervix Completed 201306/27/2014 RECORDED 02/25/20 14 8:30AM BY CASSIA MCPHERSON MA, ANNOTATI ON/ Angelo Ring MD [address] [address], [place], [address] , [facility] 6 21:33:38 Lyme disease 89165234 Completed 201306/27/2014 IMPRESSI ON: SXS CONSISTE NT WITH EARLY LYME, WILL TREAT. 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 I DO NOT SEE ANY BELLS PALSY AT THIS POINT. REASSURE Shine ZARATE THAT SHE HAS NO DROOP; RECORDED 02/25/20 14 8:52AM BY ANGELO Siegel MD, ANNOTATI ON/ Angelo Ring MD [address] [address], [place], [address] , [facility] 6 21:33:38 Panic disorder without agorapho litzy 49557916 Completed 201306/27/2014 RECORDED 02/25/20 14 8:52AM BY ANGELO Siegel MD, ANNOTATI ON/ DUM Angelo Ring MD [address] [address], [place], [address] , [facility] 6 21:33:38 Anxiety state 176047303 Completed 201303/28/2016 Angelo Ring MD [address] [address], [place], [address] , [facility] 6 21:33:38 Hashimot o thyroidi tis 96371368 Active 2013 Not Available [facility] 3 13:43:23 Cough 69804504 Completed 201312/09/2014 IMPRESSI ON: LUNGS ARE CLEAR, ALREADY ON AUGMENTI N FOR SINUSITI S WILL COMPLETE COURSE, REC. MUCOLYTI CS/HYDRA TION; RECORDED 03/03/20 14 11:53AM BY CHARLES PATHAK PA-C, OFFICE VISIT Angeol Ring MD [address] [facility] [address], [place], [address] , [facility] 6 21:33:38 Depressi ve disorder 46979479 Completed 201303/28/2016 Angelo Ring MD [address] [facility] [address], [place], [address] , [facility] 6 21:33:38 Recurren t major depressi ve episodes , in full remissio n Completed 201311/05/2019 Removal Reason: negative Angelo Ring MD [address] [facility] [address], [place], [address] , [facility] 9 09:34:27 Adult health examinat ion Completed 201305/31/2014 IMPRESSI ON: IMMUNIZA TION STATUS UTD WILL SCREEN BASED ON RISK FACTORS. REGULAR DENTAL CARE AND SEATBELT USE ADVISED. DISTRACT ED DRIVING DISCUSSE D. CERVICAL CANCER SCREENIN G UTD. ADVANCE DIRECTIV ES DISCUSSE D AND IN PLACE.; RECORDED 03/03/20 14 9:43AM BY CALEB HENRY MA, ANNOTATI ON/ADDEN DUM Angelo Ring MD [address] [facility] [address], [place], [address] , [facility] 6 21:33:38 Celiac disease 422553345 Completed 201304/02/2017 STORY: BLOOD TESTS NEGATIVE FOR CELIAC Angelo Ring MD [address] [address], [place], [address] , [facility] 7 10:21:10 Obesity 662780921 Completed 201304/02/2017 IMPRESSI ON: POTENTIA L ADVERSE HEALTH CONSEQUE NCES DISCUSSE D. INCREASE D PHYSICAL ACTIVITY AND APPROPRI ATWE DIETARY CHANGES ADVISED. ; RECORDED 03/03/20 14 9:43AM BY CALEB HENRY MA, OFFICE VISIT Cherie Hannah PA-C [address] [address], [place], [address] , [facility] 3 15:22:51 Chronic sinusiti s 80116280 Completed 201305/31/2014 IMPRESSI ON: C/W POST VIRAL SECONDAR Y BACTERIA L PROCESS. CALL INB/WORS E.; RECORDED 03/03/20 14 9:43AM BY CALEB HENRY MA, ANNOTATI ON/PINEDA Ring MD [address] [address], [place], [address] , [facility] 6 21:33:38 Vitamin D deficien cy 92567742 Active 2013 Not Available [facility] 3 13:43:23 Adult health examinat ion Completed 201306/27/2014 IMPRESSI ON: IMMUNIZA TION STATUS UTD WILL SCREEN BASED ON RISK FACTORS. REGULAR DENTAL CARE AND SEATBELT USE ADVISED. DISTRACT ED DRIVING DISCUSSE D. CERVICAL CANCER SCREENIN G UTD. ADVANCE DIRECTIV ES DISCUSSE D AND IN PLACE.; RECORDED 03/03/20 14 9:43AM BY CALEB HENRY MA, ALEX ON/PINEDA Ring MD [address] [facility] [address], [place], [address] , [facility] 6 21:33:38 Chronic sinusiti s 52521661 Completed 201306/27/2014 IMPRESSI ON: C/W POST VIRAL SECONDAR Y BACTERIA L PROCESS. CALL INB/WORS E.; RECORDED 03/03/20 14 9:43AM BY CALEB HENRY MA, ANNOTATI ON/ADDEN DUM Angelo Ring MD [address] [facility] [address], [place], [address] , [facility] 6 21:33:38 Divertic ulitis of colon 392146278 Completed 201404/02/2017 Angelo Ring MD [address] [facility] [address], [place], [address] , [facility] 7 10:20:23 Macrocyt osis 797498875 Active 2018 Not Available [facility] 3 13:43:23 Irritabl e bowel syndrome 57717173 Active 2018 Not Available [facility] 3 13:43:23 Recurren t major depressi on in partial remissio n 96798434 Active 2018 Not Available [facility] 3 13:43:23 Essentia l hyperten lucia 21851653 Active 2019 Not Available [facility] 3 13:43:24 Anti-nuc lear factor detected 005256834 Active 2020 Not Available [facility] 3 13:43:23 Herpes zoster 9930923 Active 2020 Not Available [facility] 3 13:43:23 History of SARS-CoV -2 56675062324 3639886 Active 2021 Not Available [facility] 3 13:43:23 Tinea pedis 1473135 Active 2021 Not Available [facility] 3 13:43:24 Generali zed anxiety disorder 94156405 Active 2021 Not Available [facility] 3 13:43:23 Prediabe rema 162459099 Active 2022 Not Available [facility] 3 13:43:24 Hyperlip idemia 78097821 Active 2022 Not Available [facility] 3 13:43:23 Pain of right heel 42796998537 19080 Completed 202208/05/2023 Angelo Ring MD [address] [facility] [address], [place], [address] , [facility] 3 13:48:40 Candidia sis of vagina 22035422 Completed 202208/05/2023 Angelo Ring MD [address] [facility] [address], [place], [address] , [facility] 3 13:35:30 Snoring 03250604 Completed 202208/05/2023 Angelo Ring MD [address] [facility] [address], [place], [address] , [facility] 3 13:48:55 Obstruct kathy sleep apnea of adult 49618360955 03 Active 2022 Not Available [facility] 3 13:43:23 Morbid obesity 758223737 Active 2022 Not Available [facility] 3 13:43:23 Family history of malignan t melanoma 376861285 Active 2023 Angelo Ring MD [address] [facility] [address], [place], [address] , [facility] 4 17:18:08 Body mass index 40+ - severely obese 418685201 Active 2023 Angelo Ring MD [address] [facility] [address], [place], [address] , [facility] 4 09:39:33 Venous insuffic iency of lower limb 058353303 Active 2024 Angelo Ring MD [address] [facility] [address], [place], [address] , [facility] 5 14:24:45 Acute pharyngi tis 922317916 Completed 202402/22/2025 Angelo Ring MD [address] [facility] [address], [place], [address] , [facility] 5 15:16:34 Moderate dehydrat ion 37989785009 05 Completed 202402/22/2025 Angelo Ring MD [address] [facility] [address], [place], [address] , [facility] 5 15:16:25 Food-bor ne gastroen teritis 443585210 Completed 202402/22/2025 Angelo Ring MD [address] [facility] [address], [place], [address] , [facility] 5 15:16:36 Axillary hidraden itis suppurat noah 052544815 Completed 202405/26/2025 Angelo Ring MD [address] [facility] [address], [place], [address] , [facility] 5 10:50:03 Pain of knee region 0837254064 Active 2024 Angelo Ring MD [address] [facility] [address], [place], [address] , [facility] 5 16:11:12 Steatoti c liver disease 213027391 Active 2024 Angelo Ring MD [address] [facility] [address], [place], [address] , [facility] 5 09:22:22 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 53915827120 543695 Active 2024 Angelo Ring MD [address] [facility] [address], [place], [address] , [facility] 5 12:58:57 Disorder of thymus gland 76811142 Completed 202409/08/2025 Angelo Ring MD [address], [place], [address] , [facility] 5 09:11:11 Benign adenomat ous neoplasm 047722245 Active 2024 Angelo Ring MD [address], [place], [address] , [facility] 5 15:48:13 Pain of left shoulder region Active 2024 Angelo Ring MD [address], [place], [address] , [facility] 5 09:01:02 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 Procedures Surgical History Date Name Laterality Status Provider Name and Address Organization Details Recorded Time 10/18/20 25 laparoscopic sleeve gastrectomy completed Krisitna Jenkins [facility] 10/19/2025 14:06:08 08/11/20 25 total thymectomy completed Angelo Ring MD [address] [address], [place], [address], [facility] 08/17/2025 13:07:18 06/21/20 25 colonoscopy completed Angelo Ring MD [address] [address], [place], [address], [facility] 09/08/2025 08:54:04 01/06/20 25 Most Recent Mammogram completed Lizeth Herrera [facility] 01/06/2025 11:27:53 12/22/19 24 Mammogram both breasts completed Charles Jack MA [facility] 09/07/2024 09:03:27 12/20/19 23 Mammogram both breasts completed Charles Jack MA [facility] 08/05/2023 13:06:43 12/05/19 22 Mammogram Screening completed Liyah Sheikh [facility] 12/28/2021 14:01:53 03/19/20 20 Date of Last Pap Smear completed Cassia Mcpherson MA [facility] 07/06/2020 15:07:41 06/21/20 18 Cholecystectomy completed Angelo Ring MD [address] [facility], [place], [address], [facility] 06/23/2018 10:10:03 12/26/19 16 Gastrointestinal Surgery completed Angelo Ring MD [address], [place], [address], [facility] 12/27/2015 08:41:03 03/15/20 11 Date of Last Colonoscopy completed Cassia Mcpherson MA [facility] 03/28/2016 08:32:59 03/15/20 11 Colonoscopy completed Cassia Mcpherson [facility] 03/28/2016 08:33:00 Dxa bone density study completed Cassia Mcpherson MA [facility] 04/02/2017 09:39:01 Imaging Results None recorded. Procedure Notes None recorded. Medical Equipment None Reported. Allergies Allergen ID Allergen Name Allergen Category Reaction Reaction Severity Criticality Documentation Date Start Date Code Code System Note Provider Name and Address Organization Details Recorded Time 14136 Substance with sulfonami de structure and antibacte rial mechanism of action (substanc e) medicatio n hives moderate Not available 12/09/20142013 69245 8003 SNOMED REACT I[facility]: [facility] 11:01:46 47554 acetamino phen / oxycodone medicatio n other mild Not available 12/09/2014 82934 3 RxNorm agita tion Angelo Ring MD [address] [place] [address], [address], [facility] 5 08:52:25 05529 Dilaudid medicatio n rash mild Not available 01/03/20162015 33999 3 RxNorm hives ,rash , itchi ness, repor rafia from pt ED visit Flori Springer taina, [facility] 6 08:13:55 00088 erythromy morro medicatio n other moderate Not available 03/28/20162015 4053 RxNorm MG flare Angelo Ring MD [address], [place], [address], [facility] 6 09:06:27 51824 amoxicill in medicatio n abdominal pain severe Not available 02/01/20192018 723 RxNorm Iris Lutz LPN [facility], [facility] 9 09:36:51 13392 Bactrim medicatio n Not available Not available Not available 02/28/2020 33593 9 RxNorm Gita Money [facility], [facility] 0 10:20:34 75953 cephalexi n medicatio n rash moderate Not available 12/24/2022 2231 RxNorm Charles Jack MA [facility], [facility] 3 14:38:30 24760 bupropion Not available other mild Not available 12/24/2022 87360 RxNorm eleva rafia BP Not Available [facility] 3 17:58:18 4228 clindamyc in hydrochlo ride medicatio n hives moderate Not available 05/31/20142013 29612 RxNorm Cassia Mcpherson MA [facility], [facility] 6 08:28:39 4229 Paxil medicatio n Not available Not available Not available 05/31/20142013 96935 8 RxNorm REACT ION: ECCHY MOSIS Angelo Ring MD [address], [place], [address], [facility] 7 10:12:34 52029 pseudoeph edrine hydrochlo ride medicatio n Not available Not available Not available 10/24/20252024 63280 RxNorm Not Available [facility] - [employer] - prod 5 10:16:27 08688 oxycodone medicatio n Not available Not available Not available 10/24/20252024 7804 RxNorm Not Available [facility] [employer] - prod 5 10:16:27 13809 clindamyc in Not available Not available Not available Not available 10/26/2025 2582 RxNorm Not Available [employer] - prod 13:59:37 15592 erythromy morro medicatio n Not available Not available Not available 10/26/2025 4053 RxNorm Not Available [employer] - prod 5 13:59:37 14095 hydromorp shivani medicatio n Not available Not available Not available 10/26/2025 3423 RxNorm Not Available [facility] [employer] - prod 13:59:37 80744 sulfadiaz ine medicatio n Not available Not available Not available 10/26/2025 41449 RxNorm Not Available [facility] [employer] - prod 5 13:59:37 80830 paroxetin e Not available Not available Not available Not available 10/26/2025 33639 RxNorm Not Available chucky - External Data Service - prod 5 13:59:37 48702 sulfameth oxazole medicatio n rash severe high 10/26/20252024 63221 RxNorm Not Available chucky - External Data Service - prod 5 14:00:38 43496 trimethop rim medicatio n rash severe high 10/26/20252024 75633 RxNorm Not Available chucky - External Data Service - prod 14:00:38 82779 clindamyc in hydrochlo ride medicatio n rash Not available low 10/26/20255 60615 RxNorm Not Available chucky - External Data Service - prod 14:02:09 60192 paroxetin e hydrochlo ride medicatio n Not available Not available Not available 10/26/20252024 47712 0 RxNorm Not Available chucky - External Data Service - prod 14:02:09 [...] Relief 50 mcg/actua tion nasal spray,[employer] [place] 1 spray every day by intranas al [...] completed Not Available Not Available Not Available [employer] COVID-19 Ag Self Test kit FOLLOW INSTRUCT [...] mass index (BMI) Body weight Oxygen saturation Heart rate Body temperature Systolic And Diastolic Provider Name and Address Organization Details Last Updated DateTime 5 156.85 cm 43.9 kg/m2 986600. 98 g 98 % 83 /min 97.8 [degF] 111/80 mm[Hg] Lacy Graham MA [facility] 5 08:35:54 Social History Question Answer Notes LastModified by Organizat ion Details LastModified Time Tobacco Smoking Status Never Smoker Not Available [employer] 09/19/2020 03:36:39 Do You Have An Advance Directive? Yes HCP -Jacklyn, Kaela/Mauro Information not available 06/13/2023 Is Blood Transfusion Acceptable In An Emergency? Yes [id number] Information not available 09/19/2020 What Is Your Level Of Caffeine Consumption? Moderate Coffee [id number] Information not available 09/19/2020 How Much Tobacco Do You Chew? None [id number] Information not available 09/19/2020 What Type Of Diet Are You Following? REGULAR Information not available 07/15/2022 Which Illicit Or Recreational Drugs Have You Used? None [id number] Information not available 09/19/2020 Education Post Graduate [...] Or Greater Than 100 Degrees Fahrenheit? No [place] Information not available 06/28/2020 Are You Or [...] How Many Children Do You Have? 3 [id number] Information not available 09/19/2020 Do You Use Protection During Sex? No Information not available 07/08/2024 Do You Use Your Seat Belt Or Car Seat Routinely? Yes Information not available 07/15/2022 Seat Belts Used Routinely Yes Information not available 06/13/2023 Are You Sexually Active? Yes [id number] Information not available 09/19/2020 Smoke Alarm In Home Yes Information not available 06/13/2023 Do You Have Smoke And Carbon Monoxide Detectors In Your Home? Yes Information not available 07/15/2022 At What Age Did You Start Smoking Tobacco? 1 [id number] Information not available 09/19/2020 Are You Passively Exposed To Smoke? No Information not available 03/17/2015 How Much Tobacco Do You Smoke? No [id number] Information not available 09/19/2020 Do You Use Sunscreen Routinely? Yes [id number] Information not available 09/19/2020 How Many Years Have You Smoked Tobacco? 0 [id number] Information not available 09/19/2020 Sex: Unknown Functional [...] used smokeless tobacco? Never used smokeless tobacco [id number] Information not available 09/19/2020 Are you currently employed? Yes [facility] [employer] [id number] Information not available 09/19/2020 Are you able to walk independently without assistance or assistive devices? YESWOREST Information not available 06/13/2023 Are you able to care for yourself independently? Yes [id number] Information not available 09/19/2020 What is your [...] [email or web address] Not available 11:29:04 Mother Obesity 40 yesika Not avail able 04/01/2023 11:29:04 Brother Well [...] mL dose [address] [facility] 09/29/2023 09:57:53 COVID-19, mRNA, LNP-S, PF, 30 mcg/0.3 mL dose [address] [facility] 09/29/2023 09:57:53 COVID-19, mRNA, LNP-S, PF, 30 mcg/0.3 mL dose [address] [facility] 09/29/2023 09:57:53 COVID-19, mRNA, LNP-S, PF, 30 mcg/0.3 mL dose 1 completed Lizeth Herrera null, [facility] 09/29/2023 09:57:53 Influenza, MDCK, quadrivalent, PF 1 completed Lizeth Herrera null, [facility] 09/29/2023 09:57:53 Tdap 9 completed Lizeth Herrera null, [facility] 09/29/2023 09:57:53 Influenza, split virus, quadrivalent, PF 8 completed Lizeth Herrera null, [facility] 09/29/2023 09:57:53 Influenza, split virus, quadrivalent, PF 0 completed Lizeth Herrera null, [facility] 09/29/2023 09:57:53 COVID-19, mRNA, LNP-S, PF, 100 mcg/0.5mL dose or 50 mcg/0.25mL dose 2 completed Lizeth Herrera null, [facility] 09/29/2023 09:57:53 Influenza, split virus, quadrivalent, PF 6 completed Lizeth Herrera null, [facility] 09/29/2023 09:57:53 Influenza, split virus, quadrivalent, PF 9 completed Lizeth Herrera null, [facility] 09/29/2023 09:57:53 Influenza, MDCK, quadrivalent, PF 2 completed Lizeth Herrera null, [facility] 09/29/2023 09:57:53 COVID-19, mRNA, LNP-S, bivalent, PF, 50 mcg/0.5 mL or 25mcg/0.25 mL dose 2 completed Lizeth Herrera null, [facility] 09/29/2023 09:57:53 COVID-19, mRNA, LNP-S, PF, 50 mcg/0.5 mL 3 completed Lizeth Herrera null, [facility] 09/29/2023 09:57:53 Influenza, MDCK, trivalent, PF 4 completed Charles Jack MA null, [facility] 09/07/2024 08:52:06 COVID-19, mRNA, LNP-S, PF, mina-sucrose, 30 mcg/0.3 mL 4 completed Charles Jack MA null, [facility] 09/07/2024 08:52:06 Influenza, MDCK, trivalent, PF 5 completed Chantell Montiel MA null, [facility] 09/08/2025 08:26:14 COVID-19, mRNA, LNP-S, PF, mina-sucrose, 30 mcg/0.3 mL 5 completed Chantell Montiel MA null, [facility] 09/08/2025 08:26:14 Tdap 9 completed Lizeth her, [facility] 09/29/2023 09:57:53 influenza, seasonal, intradermal, preservative free 3 completed Lizeth her, [facility] 09/29/2023 09:57:53 Influenza, split virus, quadrivalent, PF 3 completed Angelo Ring MD [address], [address], [facility] 08/05/2023 13:57:35 Past Encounters Encounter ID Performer Location Encounter Start Date Encounter Closed Date Diagnosis/Indication Diagnosis SNOMED-CT Code Diagnosis ICD10 Code Diagnosis IMO Codes Diagnosis Note [id number] Angelo Ring MD Main Office [address] [address] 10/24/2025 10:14:30 10/24/2025 13:42:06 Body mass index 40+ - severely obese 986457736 E66.01 Z68.42 Making strides with Danna olivarez and Dr. Maynard as well. [id number] Angelo Ring MD Main Office [address] [place] [address] 10/28/2025 08:22:00 10/28/2025 09:09:12 Morbid obesity 112576650 E66.01 Off of GLP1 and s/p gastrectom y with impressive results. Working with bariatric surgery on dietary plan. Essential hypertension 47616121 I10 Well controlled , continue current regimen. Agree with current dosing plan. Call with any problems or if 10mg lisinopril script is needed. Body mass index 40+ - severely obese 001336126 E66.01 Z68.42 Making strides with Danna olivarez and Dr. Maynard as well. Prediabetes 127482367 R7 3.03 Will monitor with weight loss. Steatotic liver disease 614018777 K76.0 9401 Seen by GI, with minimally abnormal elastograp hy. Continue to monitor with weight loss. Health Concerns Section Related Observation LastModified by Organization Detai ls LastModified Time None Recorded Concern Status LastModified by Organization Details LastModified Time None Recorded Payers Encounter Date Sequence Insurance Name Policy Number Policy Quick Covered Member ID Quick Member ID Guarantor Name 10/28/2025 1 [employer] [place] ([facility] [id number] 1 Joanna Elise [id number] Joanna Elise Notes Date Note Type Note Provider Name and Address Organization Details Recorded Time 10/28/20 25 text/ht ml Musculoskeletal PainReported by PatientHPIFor severity, patient reportsinterference with workbut reportsimproving. For location, patient reportspain is not radiating. For duration, patient reportspresent for >12 months. For timing, patient reportsintermittent. For context, patient reportsoveruse.Has myasthenia Gravis, on pyridostigmine, reporting dramatic improvement in symptoms since total thymectomy in Jul 2025 Hypertension F/UReported by PatientHPIFor associated symptoms, patient reportsno dizziness,no lightheadedness,no chest pain,no shortness of breath,no palpitations,no edema, andno calf pain with exertion. For medications, patient reportstaking medications as directedandno side effects from medication.Has been weaning lisinopril via bariatric surgery, currently taking 10mg daily, but has sliding scale plan in place based on AM BP measurements. Anxiety/DepressionReported by PatientHPIFor context, patient reportsmajor life stressors. For associated symptoms, patient reportsanxietyanddepressionbut reportsdenies homicidal ideations,no significant weight gain,no significant weight loss,mood good, andno crying spells. For quality, patient reportssymptoms improved. For severity, patient reportsable to maintain relationshipsanddoes not interfere with activities of daily living. For duration, patient reportssymptoms lasting over 2 weeks.Symptoms significantly improved post sleeve gastrectomy and thymectomy. Still n SSRI and working with therapist. ObesityReported by PatientHPIFor associated symptoms, patient reportsdepression [...] Tolerating tirzepatide well, but weight loss effect plateaued. Enrolled with bariatric surgery at [facility] and had lap sleeve gastrectomy on , weight down 24 pounds, feels great. Angelo Ring MD [address] [address], [place], [address], [place] [facility] 10/28/2025 09:22:35 OBGyn Episode No OBEpisode recorded.
--- OUTSIDE RECORDS SUMMARY | 2025-11-14 14:34 | XMS_ITS | Encounter Summary ---
Author Organization [facility] Address [address] [place] [id number] Phone Care Team Providers Care Housekeeper Cleaning Cooking Name Role Phone Angelo Dey MD Primary Care Provider Encounter Details Date Type Department Care Team (Late st Contact Info) Description 06/21/2025 Procedure Pass [facility] Admitting Dept Virtual Department [address] [place] [address] Social History Tobacco Use Types Packs/Day Years Used Date Smoking Tobacco: Never Smokeless Tobacco: Never Alcohol Use Standard Drinks/Week Comments Not Currently 0 (1 standard drink = 0.6 oz pure alcohol) none since May 17; typical 1-2 per day Education Answer Date Recorded Are you interested in more education? Not on amry e 2025 Are you concerned about learning? [...] Description 04/27/2026 9:15 AM EDT Office Visit [facility] [address] [place] [address] Megha Rojas, PUNEET [address] [address] [email or web address] documented as of this encounter Visit Diagnoses Not on filedocumented in this encounter Care Teams Housekeeper Cleaning Cooking Relationship Specialty Start Date End Date Angelo Dey MD [address] [place] [id number] PCP - General Internal Medicine 06/21/25 documented as of this encounter Additional Source Comments The information contained in this document represents components of the legal health record. It is not the complete legal health record.[facility]
--- OUTSIDE RECORDS SUMMARY | 2025-11-14 14:34 | XMS_ITS | Data Portability ---
Author Organization [facility], Main Office Address [address] [place] [address] Care Team Providers Care Loom Operator Name Role Phone ANGELO RING Primary Care Provider [phone] AIYANA OBREGON Neurologist [facility] Kiln Stoker [phone] [facility] SCHEDULING DEPT Academic Support Assistant [facility] Overhead Line Worker IRINEO LANGFORD Vascular Surgeon [phone] [facility] Sleep Medicine JJ MEDRANO Thoracic Surgeon [phone] DANNA PEACE Bariatric Surgeon [phone] MISHA MAYNARD Naturopathic Medicine [phone] Assessment No assessment recorded. Plan of Treatment Reminders Order Date Submit Date Provider Last Modified By Organization Details Last Modified Time Details Appointments FOLLO W UP 30MIN 2025 09:00A M Angelo Ring MD Not available Not available Not available Lab TSH + free T4, serum 2024 026 [email or web address] [facility] (Centralized Electronic Ordering - All Locations), Patient Can Go To The Location Of Their Choice, [id number] 09/08/2025 09:16:45 T3, free, serum or plasm a 2024 026 [email or web address] [facility] (Centralized Electronic Ordering - All Locations), Patient Can Go To The Location Of Their Choice, [id number] 09/08/2025 09:16:45 HbA1c (hemo globi n A1c), blood 2024 026 awychowski [facility] (Centralized Electronic Ordering - All Locations), Patient Can Go To The Location Of Their Choice, [id number] 09/08/2025 09:16:44 lipid panel , serum 2024 026 awychowski [facility] (Centralized Electronic Ordering - All Locations), Patient Can Go To The Location Of Their Choice, [id number] 09/08/2025 09:16:44 CMP, serum or plasm a 2024 026 [email or web address] [facility] (Centralized Electronic Ordering - All Locations), Patient Can Go To The Location Of Their Choice, [id number] 09/08/2025 09:16:45 HbA1c (hemo globi n A1c), blood 2024 025 CHUCKY [facility] (Centralized Electronic Ordering - All Locations), Patient Can Go To The Location Of Their Choice, [id number] 07/27/2025 08:38:27 CMP, serum or plasm a 2024 025 CHUCKY [facility] (Centralized Electronic Ordering - All Locations), Patient Can Go To The Location Of Their Choice, [id number] 07/25/2025 11:58:20 lipid panel , serum 2024 025 CHUCKY [facility] (Centralized Electronic Ordering - All Locations), Patient Can Go To The Location Of Their Choice, [id number] 07/25/2025 11:58:20 HbA1c (hemo globi n A1c), blood 2024 025 CHUCKY [facility] (Centralized Electronic Ordering - All Locations), Patient Can Go To The Location Of Their Choice, [id number] 04/08/2025 08:07:[address] refer ral - Patie nt to sched ule 2024 [email or web address] Not available 09/08/2025 09:26:11 physi barry [facility] re[facility] ilita tion refer ral - for eval of left shoul denilson pain 2024 [email or web address] Alexandre vincent MD, [address], [address], [place], [address], 09/08/2025 09:26:11 physi barry thera pist refer ral - for left shoul denilson PT for bieps tendi nitis /rota tor cuff bursi tis 2024 025 [email or web address] [facility], [address], [place], [address], 09/08/2025 09:26:[address]/di etiti an refer ral 2024 025 Not available 09/09/2025 08:43:18 gastr dari vivar ist refer ral - for fatty liver disea se 2024 025 CHUCKY Bowen MD, [address] [place], [address], 10/28/2025 08:57:57 lymph edema consu lt - for lymph edema evalu ation /queenie gemen t [address] [facility] (Physical Therapy), [address], [facility], [place], [address], 05/26/2025 15:24:16 rheum atolo gist refer ral - for eval of knee pain and ayden rn for conne ctive tissu e disea se. 2024 025 GARY Sebastian MD, [address] [place], [address], 05/30/2025 10:04:23 physi barry thera pist refer ral - for right pena lofem oral pain. 2024 025 [email or web address] [facility], [address], [place], [address], 10/07/2025 11:41:13 physi barry medic ine and rehab ilita tion refer ral - for eval of chron ic knee pain with unrem arkab le xray. 2024 025 CHUCKY Be MD, [address] [facility], [facility] [address], [place], [address], 11/13/2025 04:03:23 weigh t manag ement refer ral - For weigh t manag ement 2024 025 [facility], [address] [place] [address] Dr, [facility] [address], [place], [address], 05/06/2025 12:31:44 Procedures None recor ded. Surgeries None recor ded. Imaging MAMMO , scree loli, bilat eral - Perfo rm Diagn ostic Mammo gram and Breas t Ultra sound if neede d / Perfo rm Ultra sound Guide d Aspir ation and/o r Breas t Biops y if warra nted [email or web address] [place] [address] Radiology, [address] [facility], [place], [place], [address], 09/08/2025 09:26:11 XR, knee, 3 view - to asses s arthr itis lew n in pt with pain 2024 025 [facility], [address] [facility], [place], [address], 04/08/2025 09:07:31 Medication Orders None recor ded. Patient TargetsNo targets recorded. Patient Instructions Encounter Date Encounter Id Patient Instructions Last Modified By Organization Details Last Modified Time 04/07/2025 [id number] patellofemoral pain syndrome: care instructions [email or web address] Not available 04/07/2025 15:34:04 body mass index: care instructions awychowski Not available 04/07/2025 15:34:04 learning about healthy weight [email or web address] Not available 04/07/2025 15:34:05 When You Want to Lose Weight: Care Instructions [email or web address] Not available 04/07/2025 15:34:04 05/26/2025 [id number] body mass index: care instructions [email or web address] Not available 05/26/2025 10:53:09 learning about healthy weight awychowski Not available 05/26/2025 10:53:09 high blood pressure: care instructions awychowski Not available 05/26/2025 10:53:09 learning about high blood pressure awychowski Not available 05/26/2025 10:53:08 09/08/2025 [id number] high cholesterol : care instructions awychowski Not available 09/08/2025 09:16:45 Cervical Cancer Screening awychowski Not available 09/08/2025 09:16:45 biceps tendiniti s: exercises awychowski Not available 09/08/2025 09:16:44 rotator cuff: exercises awychowski Not available 09/08/2025 09:16:44 Starting a Weight-Loss Plan: Care Instructions [email or web address] Not available 09/08/2025 09:16:44 Nutrition Referr al and Weight Management Follow-up Information awychowski Not available 09/08/2025 09:16:44 10/28/2025 [id number] When You Want to Lose Weight: Care Instructions [email or web address] Not available 10/28/2025 09:22:17 At [facility] follow up visit, all current and discharge medications (OTC, herbal therapies, supplements) reviewed and reconciled with patient and or caregiver, including potential side effects, drug interactions, instructions, and the consequences of not taking medication. Reviewed potential barriers to medication adherence, such as side effects from medication or cost of medication. [email or web address] Not available 10/28/2025 08:30:04 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 Weight Management Referral f [...] Physician: Family Celeste Murillo, Encounter Date: 05/26/2025 Software Programmer Referral for Patellofemoral syndrome of bilateral knees for eval of knee pain and concern for connective tissue disease. Referring Physician: Family Celeste Murillo, Encounter Date: 05/26/2025 Elementary Principal Referral for Steatotic liver disease for fatty liver disease Referring Physician: Angelo Ring [facility] Celeste, Encounter Date: 05/26/2025 Professor Of Special Education/dietitian Refer ral for Body mass index 40+ - severely obese Referring Physician: Angelo Ring [facility] [place], Encounter Date: 09/08/2025 Academic Support Assistant Referral for Sc reening for malignant neoplasm of cervix Patient to schedule Referring Physician: Angelo Ring [facility] [place], Encounter Date: 09/08/2025 Physical Medicine And Rehabi litation Referral for Pain of left shoulder region for eval of left shoulder pain Referring Physician: Family Celeste Murillo, Encounter Date: 09/08/2025 Physical Therapist Referral for Pain of left shoulder region for left shoulder PT for bieps tendinitis/rotator cuff bursitis Referring Physician: Angelo Ring [facility] [place], Encounter Date: 09/08/2025 Results Created Date Observation Date Name Description Value Unit Range Abnormal Flag Note LastModifiedBy Organization Detail LastModifiedTime 04/07/2004/08/2025 HEMOG LOBIN A1C hemoglobin A1C 6.0 % 4.8-5. 6 above high normal Predi abete s: 5.7 - 6.4 Diabe erma: >6.4 Glyce margarito contr ol for adult s with diabe rema: <7.0 Not Available [facility] ([facility]) [address], [place], [address], 04/08/2025 08:07:19 04/08/20 25 04/08/2025 XR, knee, 3 view Knee 3 Views Right Reason : pain COMPAR EVELYN: 07/26/20 21 FINDIN GS: No bone lesion s or fractu res. No arthri tic change s. No joint effusi on, osteoc hondra l defect s or intra- articu lar loose bodies . IMPRES LUCIA: Normal . WSN: [id number] Orderi ng Physic mauro: Angelo Hernandez Dictat ed By: Angeli Lenz MD Dictat ed Date/T jay jay: 9:04 am Review ed By: Angeli Lenz MD Signed By: Asif qiu MD, Angeli warner Signed Date/T jay jay: 9:04 am Transc ribed By: CSB Transc ribed Date/T jay jay: 9:03 am Patien t Class: Outpat ient [facility] (Outpt Imaging) [address], [place], [address], 05/26/2025 10:48:29 04/15/20 25 04/14/2025 venou s study , lower extre mity, compl ete No observ ation record ed. [facility] [address], [place], [address], 05/26/2025 10:48:29 05/16/20 25 05/16/2025 CT, chest , w/ contr ast No observ ation record ed. [facility] (Medical Records) [address] [place], [address], 05/26/2025 10:48:29 07/22/20 25 07/22/2025 XR, chest , 2 view No observ ation record ed. [facility] (Medical Records) [address] [place], [address], 09/08/2025 08:47:45 09/27/2009/27/2025 liver elast ograp hy, mecha nical ly induc ed shear wave (PROC ) No observ ation record ed. [facility] (Medical Records) [address] [place], [address], 09/28/2025 09:08:06 11/04/2011/03/2025 US, kelly x, samir s, oziel mity, compl ete No observ ation record ed. [facility] [address] [facility] [address], [place], [address], 11/06/2025 14:36:40 Result Notes Documentation Provider Name and Address Organization Details Recorded Time Xr, Knee, 3 View : Knee 3 Views Right Reason: pain COMPARISON: 07/26/2021 FINDINGS: No bone lesions or fractures. No arthritic changes. No joint effusion, osteochondral defects or intra-articular loose bodies. IMPRESSION: Normal. WSN: [id number] Ordering Physician: Angelo Ring Dictated By: Vic Hammond MD Dictated Date/Time: 04/08/25 9:04 am Reviewed By: Vic Hammond MD Signed By: Vic Hammond MD Signed Date/Time: 04/08/25 9:04 am Transcribed By: FLOYD Transcribed Date/Time: 04/08/25 9:03 am Patient Class: Outpatient Angelo Ring MD [address] [facility] [facility] [address], [place], [address], [facility] 05/26/2025 10:48:29 Problems Name Problem SNOMED Code Status Onset Date Resolution Date Notes Provider Name and Address Organization Details Recorded Time Body mass index 30+ - obesity 551766997 Completed 07/06/2020 Cassia Mcpherson MA null, [facility] 0 15:05:27 Pain of multiple joints 01687014 Active Not Available [facility] 3 13:43:23 Mixed anxiety and depressi ve disorder 857451294 Completed 04/02/2017 Angelo Ring MD [address], [place], [address] , [facility] 7 10:20:46 Abdomina l pain 32260306 Completed 03/28/2016 Angelo Ring MD [address] [facility] [address], [place], [address] , [facility] 6 21:33:38 Divertic ular disease 678367753 Active s/p partial colectom y Not Available [facility] 3 13:43:23 Diplopia 60619564 Active Not Available [facility] 3 13:43:23 Floaters in visual field 578109838 Completed 03/28/2016 Angelo Ring MD [address], [place], [address] , [facility] 6 21:33:38 Headache 39981331 Completed 04/02/2017 Angelo Ring MD [address] [facility] [address] [facility] [address], [place], [address] , [facility] 7 10:20:58 Myasthen ia gravis 57612478 Active seronega tive Angelo Ring MD [address] [facility] [address] [address], [place], [address] , [facility] 5 06:32:36 Acne 46254788 Completed 04/02/2017 Angelo Ring MD [address] [facility] [facility] [address], [place], [address] , [facility] 7 10:20:27 Hypergly cemia 75642998 Completed 04/02/2017 Angelo Ring MD [address] [facility] [facility] [address], [place], [address] , [facility] 7 10:21:18 Vitiligo 53046115 Active Not Available [facility] 3 13:43:23 Autoimmu ne polyendo crinopat hy 65613884 Active Not Available [facility] 3 13:43:23 Malaise and fatigue 386967974 Completed 201205/31/2014 IMPRESSI ON: COUPLED TO CHEST [...] 13 4:18PM BY CASSIA MCPHERSON MA, ALEX ON/ADDLEAH Ring MD [address], [place], [address] , [facility] 6 21:33:38 History of infectio us disease 635530372 Completed 201205/31/2014 RECORDED 01/28/20 13 4:18PM BY CASSIA MCPHERSON MA, ALEX PAGE/PINEDA Ring MD [address] [facility] [address], [place], [address] , [facility] 6 21:33:38 Immuniza tion refused Completed 201205/31/2014 RECORDED 01/28/20 13 4:18PM BY CASSIA MCPHERSON MA, ALEX ON/PINEDA Ring MD [address] [facility] [address], [place], [address] , [facility] 6 21:33:38 Malaise and fatigue 328667058 Completed 201206/27/2014 IMPRESSI ON: COUPLED TO CHEST [...] MCPHERSON MA, ALEX ON/PINEDA Ring MD [address] [facility] [address], [place], [address] , [facility] 6 21:33:38 History of infectio us disease 147361849 Completed 201206/27/2014 RECORDED 01/28/20 13 4:18PM BY CASSIA MCPHERSON MA, ANNOTATI ON/PINEDA Ring MD [address] [facility] [address], [place], [address] , [facility] 6 21:33:38 Immuniza tion refused Completed 201206/27/2014 RECORDED 01/28/20 13 4:18PM BY CASSIA MCPHERSON MA, ANNOTATI ON/PINEDA Ring MD [address] [facility] [address], [place], [address] , [facility] 6 21:33:38 Patient status finding [id number] Completed 201205/31/2014 RECORDED 05/21/20 13 2:50PM BY GANESH HOPE MA, ANNOTATI ON/PINEDA Ring MD [address] [facility] [address], [place], [address] , [facility] 6 21:33:38 Chest pain 33616714 Completed 201205/31/2014 IMPRESSI ON: SYMPTOMS C/W EIA POSSIBLE ANXIETY COMPONEN T. WILL TRY PRE EXERCISE MDI. ADVISED TO CALL IF PERSISTA NT/WORSE .; RECORDED 05/21/20 13 2:50PM BY GANESH HOPE MA, ANNOTVICKY ON/PINEDA Ring MD [address] [facility] [address], [place], [address] , [facility] 6 21:33:38 Tachycar effie 4447930 Completed 201205/31/2014 IMPRESSI ON: WILL SCREEN FOR CONDUCTI ON ABNORMAL ITY.; RECORDED 05/21/20 13 2:50PM BY GANESH HOPE MA, ANNOTATI ON/PINEDA Ring MD [address] [facility] [address], [place], [address] , [facility] 6 21:33:38 Patient status finding [id number] Completed 201206/27/2014 RECORDED 05/21/20 13 2:50PM BY GANESH HOPE MA, ANNOTATI ON/PINEDA Ring MD [address] [facility] [address], [place], [address] , [facility] 6 21:33:38 Chest pain 12440439 Completed 201206/27/2014 IMPRESSI ON: SYMPTOMS C/W EIA POSSIBLE ANXIETY COMPONEN T. WILL TRY PRE EXERCISE MDI. ADVISED TO CALL IF PERSISTA NT/WORSE .; RECORDED 05/21/20 13 2:50PM BY GANESH HOPE MA, ANNOTATI ON/PINEDA Ring MD [address] [facility] [address], [place], [address] , [facility] 6 21:33:38 Tachycar effie 9439510 Completed 201206/27/2014 IMPRESSI ON: WILL SCREEN FOR CONDUCTI ON ABNORMAL ITY.; RECORDED 05/21/20 13 2:50PM BY GANESH HOPE MA, ANNOTATI ON/PINEDA Ring MD [address] [facility] [address], [place], [address] , [facility] 6 21:33:38 Influenz a vaccine needed 92754307624 06 Completed 201205/31/2014 RECORDED 07/31/20 13 10:03AM BY RAMYA BENTON I, NURSE VISIT Angelo Ring MD [address] [facility] [address], [place], [address] , [facility] 6 21:33:38 Influenz a vaccine needed 84737237812 06 Completed 201206/27/2014 RECORDED 07/31/20 13 10:03AM BY RAMYA BENTON I, NURSE VISIT Angelo Ring MD [address] [facility] [address], [place], [address] , [facility] 6 21:33:38 Anaphyla xis 89187557 Completed 201305/31/2014 STORY: UNKNOWN CAUSE OCT 2012; RECORDED 02/25/20 14 8:52AM BY ANGELO Siegel MD, ANNOTATI ON/ADDEN DUM Angelo Ring MD [address] [address], [place], [address] , [facility] 6 21:33:38 Autoimmu ne disease 67356529 Completed 201305/31/2014 RECORDED 02/25/20 14 8:52AM BY ANGELO Siegel MD, ANNOTATI ON/ADDEN DUM Angelo Ring MD [address] [address], [place], [address] , [facility] 6 21:33:38 Screenin g for malignan t neoplasm of cervix Completed 201305/31/2014 RECORDED 02/25/20 14 8:30AM BY CASSIA MCPHERSON MA, ANNOTATI ON/ADDEN DUM Angelo Ring MD [address] [address], [place], [address] , [facility] 6 21:33:38 Lyme disease 74282468 Completed 201305/31/2014 IMPRESSI ON: SXS CONSISTE NT WITH EARLY LYME, WILL TREAT. 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 I DO NOT SEE ANY BELLS PALSY AT THIS POINT. REASSURE Shine ZARATE THAT SHE HAS NO DROOP; RECORDED 02/25/20 14 8:52AM BY ANGELO Siegel MD, ANNOTATI ON/ADDEN DUM Angelo Ring MD [address] [facility] [address], [place], [address] , [facility] 6 21:33:38 Panic disorder without agorapho litzy 67495576 Completed 201305/31/2014 RECORDED 02/25/20 14 8:52AM BY ANGELO Siegel MD, ANNOTATI ON/ Angelo Ring MD [address] [facility] [address], [place], [address] , [facility] 6 21:33:38 Anaphyla maos 90940264 Completed 201306/27/2014 STORY: UNKNOWN CAUSE OCT 2012; RECORDED 02/25/20 14 8:52AM BY ANGELO Siegel MD, ANNOTATI ON/ Angelo Ring MD [address] [facility] [address], [place], [address] , [facility] 6 21:33:38 Autoimmu ne disease 27882685 Completed 201306/27/2014 RECORDED 02/25/20 14 8:52AM BY ANGELO Siegel MD, ANNOTATI ON/ Angelo Ring MD [address] [address], [place], [address] , [facility] 6 21:33:38 Screenin g for malignan t neoplasm of cervix Completed 201306/27/2014 RECORDED 02/25/20 14 8:30AM BY CASSIA MCPHERSON MA, ANNOTATI ON/ Angelo Ring MD [address] [address], [place], [address] , [facility] 6 21:33:38 Lyme disease 98899209 Completed 201306/27/2014 IMPRESSI ON: SXS CONSISTE NT WITH EARLY LYME, WILL TREAT. 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 I DO NOT SEE ANY BELLS PALSY AT THIS POINT. REASSURE Shine ZARATE THAT SHE HAS NO DROOP; RECORDED 02/25/20 14 8:52AM BY ANGELO Siegel MD, ANNOTATI ON/ Angelo Ring MD [address] [facility] [address], [place], [address] , [facility] 6 21:33:38 Panic disorder without agorapho litzy 29931977 Completed 201306/27/2014 RECORDED 02/25/20 14 8:52AM BY ANGELO Siegel MD, ANNOTATI ON/ADDEN DUM Angelo Ring MD [address] [facility] [address], [place], [address] , [facility] 6 21:33:38 Anxiety state 845276183 Completed 201303/28/2016 Angelo Ring MD [address] [facility] [address], [place], [address] , [facility] 6 21:33:38 Hashimot o thyroidi tis 22902020 Active 2013 Not Available [facility] 3 13:43:23 Cough 98066095 Completed 201312/09/2014 IMPRESSI ON: LUNGS ARE CLEAR, ALREADY ON AUGMENTI N FOR SINUSITI S WILL COMPLETE COURSE, REC. MUCOLYTI CS/HYDRA TION; RECORDED 03/03/20 14 11:53AM BY LIZZETH PATHAK PA-C, OFFICE VISIT Angelo Ring MD [address] [address], [place], [address] , [facility] 6 21:33:38 Depressi ve disorder 00922571 Completed 201303/28/2016 Angelo Ring MD [address] [address], [place], [address] , [facility] 6 21:33:38 Recurren t major depressi ve episodes , in full remissio n Completed 201311/05/2019 Removal Reason: negative Angelo Ring MD [address] [address], [place], [address] , [facility] 9 09:34:27 Adult health examinat ion Completed 201305/31/2014 IMPRESSI ON: IMMUNIZA TION STATUS UTD WILL SCREEN BASED ON RISK FACTORS. REGULAR DENTAL CARE AND SEATBELT USE ADVISED. DISTRACT ED DRIVING CHRISTIE [place]. CERVICAL CANCER SCREENIN G UTD. ADVANCE DIRECTIV ES CHRISTIE [place] AND IN PLACE.; RECORDED 03/03/20 14 9:43AM BY CALEB HENRY MA, ALEX ON/PINEDA Ring MD [address] [facility] [address], [place], [address] , [facility] 6 21:33:38 Celiac disease 552804845 Completed 201304/02/2017 STORY: BLOOD TESTS NEGATIVE FOR CELIAC Angelo Ring MD [address] [facility] [address], [place], [address] , [facility] 7 10:21:10 Obesity 933276174 Completed 201304/02/2017 IMPRESSI ON: POTENTIA L ADVERSE HEALTH CONSEQUE NCES CHRISTIE [place]. INCREASE D PHYSICAL ACTIVITY AND APPROPRI ATWE DIETARY CHANGES ADVISED. ; RECORDED 03/03/20 14 9:43AM BY CALEB HENRY MA, OFFICE VISIT Cherie Hannah PA-C [address] [facility] [address], [place], [address] , [facility] 3 15:22:51 Chronic sinusiti s 18902738 Completed 201305/31/2014 IMPRESSI ON: C/W POST VIRAL SECONDAR Y BACTERIA L PROCESS. CALL INB/WORS E.; RECORDED 03/03/20 14 9:43AM BY CALEB HENRY MA, ALEX ON/PINEDA Ring MD [address] [facility] [address], [place], [address] , [facility] 6 21:33:38 Vitamin D deficien cy 95873647 Active 2013 Not Available [facility] 3 13:43:23 Adult health examinat ion Completed 201306/27/2014 IMPRESSI ON: IMMUNIZA TION STATUS UTD WILL SCREEN BASED ON RISK FACTORS. REGULAR DENTAL CARE AND SEATBELT USE ADVISED. DISTRACT ED DRIVING DISCUSSE Shine. CERVICAL CANCER SCREENIN G UTD. ADVANCE DIRECTIV ES DISCUSSDanica D AND IN PLACE.; RECORDED 03/03/20 14 9:43AM BY CALEB HENRY MA, ANNOTATI ON/PINEDA Ring MD [address] [facility] [address], [place], [address] , [facility] 6 21:33:38 Chronic sinusiti s 43283063 Completed 201306/27/2014 IMPRESSI ON: C/W POST VIRAL SECONDAR Y BACTERIA L PROCESS. CALL INB/WORS E.; RECORDED 03/03/20 14 9:43AM BY CALEB HENRY MA, ANNOTATI ON/PINEDA Ring MD [address] [facility] [address], [place], [address] , [facility] 6 21:33:38 Divertic ulitis of colon 989979610 Completed 201404/02/2017 Angelo Ring MD [address] [facility] [address], [place], [address] , [facility] 7 10:20:23 Macrocyt osis 423394089 Active 2018 Not Available [facility] 3 13:43:23 Irritabl e bowel syndrome 68642328 Active 2018 Not Available [facility] 3 13:43:23 Recurren t major depressi on in partial remissio n 59428033 Active 2018 Not Available [facility] 3 13:43:23 Essentia l hyperten lucia 10788454 Active 2019 Not Available [facility] 3 13:43:24 Anti-nuc lear factor detected 774096510 Active 2020 Not Available [facility] 3 13:43:23 Herpes zoster 8326352 Active 2020 Not Available [facility] 3 13:43:23 History of SARS-CoV -2 29784270924 4126815 Active 2021 Not Available [facility] 3 13:43:23 Tinea pedis 5362887 Active 2021 Not Available [facility] 3 13:43:24 Generali zed anxiety disorder 01402867 Active 2021 Not Available [facility] 3 13:43:23 Prediabe rema 083101462 Active 2022 Not Available [facility] 3 13:43:24 Hyperlip idemia 49313057 Active 2022 Not Available [facility] 3 13:43:23 Pain of right heel 17614430547 24333 Completed 202208/05/2023 Angelo Ring MD [address], [place], [address] , [facility] 3 13:48:40 Candidia sis of vagina 51158194 Completed 202208/05/2023 Angelo Ring MD [address], [place], [address] , [facility] 3 13:35:30 Snoring 31809706 Completed 202208/05/2023 Angelo Ring MD [address], [place], [address] , [facility] 3 13:48:55 Obstruct kathy sleep apnea of adult 60993141294 03 Active 2022 Not Available [facility] 3 13:43:23 Morbid obesity 182772682 Active 2022 Not Available [facility] 3 13:43:23 Family history of malignan t melanoma 453112706 Active 2023 Angelo Ring MD [address], [place], [address] , [facility] 4 17:18:08 Body mass index 40+ - severely obese 089577160 Active 2023 Angelo Ring MD [address] [facility] [address], [place], [address] , [facility] 4 09:39:33 Venous insuffic iency of lower limb 303665857 Active 2024 Angelo Ring MD [address] [facility] [address], [place], [address] , [facility] 5 14:24:45 Acute pharyngi tis 571484200 Completed 202402/22/2025 Angelo Ring MD [address] [facility] [address], [place], [address] , [facility] 5 15:16:34 Moderate dehydrat ion 81175060355 05 Completed 202402/22/2025 Angelo Ring MD [address] [facility] [address], [place], [address] , [facility] 5 15:16:25 Food-bor ne gastroen teritis 588236415 Completed 202402/22/2025 Angelo Ring MD [address], [place], [address] , [facility] 5 15:16:36 Axillary hidraden itis suppurat noah 119285310 Completed 202405/26/2025 Angelo Ring MD [address] [facility] [address], [place], [address] , [facility] 5 10:50:03 Pain of knee region 2000836813 Active 2024 Angelo Ring MD [address], [place], [address] , [facility] 5 16:11:12 Steatoti c liver disease 014069383 Active 2024 Angelo Ring MD [address], [place], [address] , [facility] 5 09:22:22 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 29065944909 612896 Active 2024 Angelo Ring MD [address] [facility] [address], [place], [address] , [facility] 5 12:58:57 Disorder of thymus gland 87212452 Completed 202409/08/2025 Angelo Ring MD [address] [facility] [address], [place], [address] , [facility] 5 09:11:11 Benign adenomat ous neoplasm 955319429 Active 2024 Angelo Ring MD [address] [facility] [address], [place], [address] , [facility] 5 15:48:13 Pain of left shoulder region Active 2024 Angelo Ring MD [address] [facility] [address], [place], [address] , [facility] 5 09:01:02 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 Procedures Surgical History Date Name Laterality Status Provider Name and Address Organization Details Recorded Time 10/18/20 laparoscopic sleeve gastrectomy completed Kristina Jenkins [facility] 10/19/2025 14:06:08 08/11/20 25 total thymectomy completed Angelo Ring MD [address] [address], [place], [address], [facility] 08/17/2025 13:07:18 0805/20 25 colonoscopy completed Angelo Ring MD [address] [facility], [place], [address], [facility] 09/08/2025 08:54:04 01/06/20 25 Most Recent Mammogram completed Lizeth Herrera [facility] 01/06/2025 11:27:53 12/22/19 24 Mammogram both breasts completed Lizzeth Jack MA [facility] 09/07/2024 09:03:27 12/20/19 23 Mammogram both breasts completed Lizzeth Jack MA [facility] 08/05/2023 13:06:43 12/05/19 22 Mammogram Screening completed Liyah Sheikh [facility] 12/28/2021 14:01:53 03/19/20 20 Date of Last Pap Smear completed Cassia Mcpherson MA [facility] 07/06/2020 15:07:41 06/21/20 18 Cholecystectomy completed Angelo Ring MD [address] [facility], [place], [address], [facility] 06/23/2018 10:10:03 12/26/19 16 Gastrointestinal Surgery completed Angelo Ring MD [address] [facility], [place], [address], [facility] 12/27/2015 08:41:03 03/15/20 11 Date of Last Colonoscopy completed Cassia Mcpherson MA [facility] 03/28/2016 08:32:59 03/15/20 11 Colonoscopy completed Cassia Mcpherson MA [facility] 03/28/2016 08:33:00 Dxa bone density study completed Cassia Mcpherson MA [facility] 04/02/2017 09:39:01 Imaging Results None recorded. Procedure Notes None recorded. Medical Equipment None Reported. Allergies Allergen ID Allergen Name Allergen Category Reaction Reaction Severity Criticality Documentation Date Start Date Code Code System Note Provider Name and Address Organization Details Recorded Time 96311 Substance with sulfonami de structure and antibacte rial mechanism of action (substanc e) medicatio n hives moderate Not available 12/09/20142013 58093 8003 SNOMED REACT ION: HIVES Lily Carroll taina, [facility] 5 11:01:46 25874 acetamino phen / oxycodone medicatio n other mild Not available 12/09/2014 38568 3 RxNorm agita tion Angelo Ring MD [address], [place], [address], [facility] 5 08:52:25 21605 Dilaudid medicatio n rash mild Not available 01/03/20162015 74740 3 RxNorm hives ,rash , itchi ness, repor rafia from pt ED visit Flori Springer taina, [facility] 6 08:13:55 50135 erythromy morro medicatio n other moderate Not available 03/28/20162015 4053 RxNorm MG flare Angelo Ring MD [address], [place], [address], [facility] 6 09:06:27 55842 amoxicill in medicatio n abdominal pain severe Not available 02/01/20192018 723 RxNorm CASEY Anderson, [facility] 9 09:36:51 83058 Bactrim medicatio n Not available Not available Not available 02/28/2020 33954 9 RxNorm Gita Money taina, [facility] 0 10:20:34 15911 cephalexi n medicatio n rash moderate Not available 12/24/2022 2231 RxNorm [place] Hollingsworth, [facility] 3 14:38:30 44158 bupropion Not available other mild Not available 12/24/2022 64375 RxNorm eleva rafia BP Not Available [facility] 3 17:58:18 4228 clindamyc in hydrochlo ride medicatio n hives moderate Not available 05/31/20142013 49779 RxNorm Pomeroylakisha Mcpherson MA null, [facility] 6 08:28:39 4229 Paxil medicatio n Not available Not available Not available 05/31/20142013 58980 8 RxNorm REACT ION: ECCHY SIMON Ring MD [address] [facility] [address], [place], [address], [facility] 7 10:12:34 01979 pseudoeph edrine hydrochlo ride medicatio n Not available Not available Not available 10/24/20252024 79738 RxNorm Not Available [facility] [employer] [facility] 5 10:16:27 33164 oxycodone medicatio n Not available Not available Not available 10/24/20252024 7804 RxNorm Not Available [facility] [employer] [facility] prod 5 10:16:27 62183 clindamyc in Not available Not available Not available Not available 10/26/2025 2582 RxNorm Not Available [facility] [employer] [facility] 5 13:59:37 82511 erythromy morro medicatio n Not available Not available Not available 10/26/2025 4053 RxNorm Not Available [facility] [employer] - prod 5 13:59:37 54957 hydromorp shivani medicatio n Not available Not available Not available 10/26/2025 3423 RxNorm Not Available [facility] [employer] [facility] 5 13:59:37 61229 sulfadiaz ine medicatio n Not available Not available Not available 10/26/2025 39143 RxNorm Not Available [facility] [employer] [facility] 5 13:59:37 97667 paroxetin e Not available Not available Not available Not available 10/26/2025 91086 RxNorm Not Available [facility] [employer] - prod 13:59:37 29240 sulfameth oxazole medicatio n rash severe high 10/26/20252024 24734 RxNorm Not Available [facility] [employer] - prod 14:00:38 83370 trimethop rim medicatio n rash severe high 10/26/20252024 84815 RxNorm Not Available [facility] [employer] - prod 14:00:38 74275 clindamyc in hydrochlo ride medicatio n rash Not available low 10/26/20252024 46723 RxNorm Not Available [facility] [employer] - prod 14:02:09 52024 paroxetin e hydrochlo ride medicatio n Not available Not available Not available 10/26/20252024 73536 0 RxNorm Not Available [facility] [employer] - prod 14:02:09 [...] Relief 50 mcg/actua tion nasal spray,nacho pension [place] 1 spray every day by intranas al [...] Oxygen saturation Body temperature Systolic And Diastolic Provider Name and Address Organization Details Last Updated DateTime 5 156.85 cm 49.8 kg/m2 254084. 94 g 97 /min 96 % 98.1 [degF] 130/86 mm[Hg] Lorenza grissom MA [facility] 5 14:55:35 Date Recorded Body height Body mass index (BMI) Body weight Oxygen saturation Heart rate Body temperature Systolic And Diastolic Provider Name and Address Organization Details Last Updated DateTime 5 156.85 cm 50.2 kg/m2 629637. 52 g 96 % 86 /min 98.3 [degF] 127/78 mm[Hg] Lacy Graham MA [facility] 5 10:10:10 Date Recorded Body height Body mass index (BMI) Body weight Heart rate Oxygen saturation Body temperature Systolic And Diastolic Systolic And Diastolic Provider Name and Address Organization Details Last Updated DateTime 5 156.85 cm 48.3 kg/m2 070516. 2 g 82 /min 96 % 98.3 [degF] 149/83 mm[Hg] 130/80 mm[Hg] Chantell Montiel MA [facility] 5 08:34:18 Date Recorded Body height Body mass index (BMI) Body weight Oxygen saturation Heart rate Body temperature Systolic And Diastolic Provider Name and Address Organization Details Last Updated DateTime 5 156.85 cm 43.9 kg/m2 573193. 98 g 98 % 83 /min 97.8 [degF] 111/80 mm[Hg] Lacy Graham MA [facility] 5 08:35:54 Social History Question Answer Notes LastModified by Organizat ion Details LastModified Time Tobacco Smoking Status Never Smoker Not Available [facility] 09/19/2020 03:36:39 Do You Have An Advance Directive? Yes HCP -Jacklyn, Kaela/Mauro Information not available 06/13/2023 Is Blood Transfusion Acceptable In An Emergency? Yes [id number] Information not available 09/19/2020 What Is Your Level Of Caffeine Consumption? Moderate Coffee [id number] Information not available 09/19/2020 How Much Tobacco Do You Chew? None [id number] Information not available 09/19/2020 What Type Of Diet Are You Following? REGULAR Information not available 07/15/2022 Which Illicit Or Recreational Drugs Have You Used? None [id number] Information not available 09/19/2020 Education Post Graduate [...] Or Greater Than 100 Degrees Fahrenheit? No [employer] Information not available 06/28/2020 Are You Or Anyone In Your Household A Health Care Provider Or Emergency Responder? No [employer] Information not available 06/28/2020 To The Best Of Your Knowledge Have You Been In Close Proximity To Any Individual Who Tested Positive For COVID-19? No [employer] Information not available 06/28/2020 *AWV ONLY* Are You Presently Prescribed Opioid Medication By PCP Or Specialist? If YES -Provider Assess The Benefit For Other, Non-opioid Pain Therapies Instead, Even If The Patient Does Not Have OUD But Is Possibly At Risk. No Information not available 07/06/2020 Have You Recently Traveled To A [place] [address] High Risk Area Or Gathering In The Last 10 Days? No Information not available 02/23/2021 What Was The Date Of Your Most Recent Tobacco Screening? 09/08/2025 [email or web address] Information not available 09/08/2025 How Many Children Do You Have? 3 [id number] Information not available 09/19/2020 Do You Use Protection During Sex? No Information not available 07/08/2024 Do You Use Your Seat Belt Or Car Seat Routinely? Yes Information not available 07/15/2022 Seat Belts Used Routinely Yes Information not available 06/13/2023 Are You Sexually Active? Yes [id number] Information not available 09/19/2020 Smoke Alarm In Home Yes Information not available 06/13/2023 Do You Have Smoke And Carbon Monoxide Detectors In Your Home? Yes Information not available 07/15/2022 At What Age Did You Start Smoking Tobacco? 1 [id number] Information not available 09/19/2020 Are You Passively Exposed To Smoke? No Information not available 03/17/2015 How Much Tobacco Do You Smoke? No [id number] Information not available 09/19/2020 Do You Use Sunscreen Routinely? Yes [id number] Information not available 09/19/2020 How Many Years Have You Smoked Tobacco? 0 [id number] Information not available 09/19/2020 Sex: Unknown Functional [...] used smokeless tobacco? Never used smokeless tobacco [id number] Information not available 09/19/2020 Are you currently employed? Yes [employer] [id number] Information not available 09/19/2020 Are you able to walk independently without assistance or assistive devices? [email or web address] Information not available 06/13/2023 Are you able to care for yourself independently? Yes [id number] Information not available 09/19/2020 What is your [...] Diseases N Hyperthyroidism N Breast Cancer N Lung Disease N Hypothyroidism Y Depression Y COPD N Defects or Inherited [...] mcg/0.3 mL dose 1 completed Lizeth her [facility] 09/29/2023 09:57:53 COVID-19, mRNA, LNP-S, PF, 30 mcg/0.3 mL dose 1 nirav her [facility] 09/29/2023 09:57:53 COVID-19, mRNA, LNP-S, PF, 30 mcg/0.3 mL dose nirav her [facility] 09/29/2023 09:57:53 COVID-19, mRNA, LNP-S, PF, 30 mcg/0.3 mL dose 1 completed Lizeth her [facility] 09/29/2023 09:57:53 Influenza, MDCK, quadrivalent, PF 1 completed Lizeth Herrera null, [facility] 09/29/2023 09:57:53 Tdap 9 completed Lizeth Herrera null, [facility] 09/29/2023 09:57:53 Influenza, split virus, quadrivalent, PF 8 completed Lizeth Herrera null, [facility] 09/29/2023 09:57:53 Influenza, split virus, quadrivalent, PF 0 completed Lizeth Herrera null, [facility] 09/29/2023 09:57:53 COVID-19, mRNA, LNP-S, PF, 100 mcg/0.5mL dose or 50 mcg/0.25mL dose 2 completed Lizeth Herrera null, [facility] 09/29/2023 09:57:53 Influenza, split virus, quadrivalent, PF 6 completed Lizeth Herrera null, [facility] 09/29/2023 09:57:53 Influenza, split virus, quadrivalent, PF 9 completed Lizeth Herrera null, [facility] 09/29/2023 09:57:53 Influenza, MDCK, quadrivalent, PF 2 completed Lizeth Herrera null, [facility] 09/29/2023 09:57:53 COVID-19, mRNA, LNP-S, bivalent, PF, 50 mcg/0.5 mL or 25mcg/0.25 mL dose 2 completed Lizeth Herrera null, [facility] 09/29/2023 09:57:53 COVID-19, mRNA, LNP-S, PF, 50 mcg/0.5 mL 3 completed Lizeth Herrera null, [facility] 09/29/2023 09:57:53 Influenza, MDCK, trivalent, PF 4 completed Lizzeth Jack [place] null, [facility] 09/07/2024 08:52:06 COVID-19, mRNA, LNP-S, PF, mina-sucrose, 30 mcg/0.3 mL 4 completed Lizzeth Jack [place] null, [facility] 09/07/2024 08:52:06 Influenza, MDCK, trivalent, PF 5 completed Chantell Montiel MA null, [facility] 09/08/2025 08:26:14 COVID-19, mRNA, LNP-S, PF, mina-sucrose, 30 mcg/0.3 mL 5 completed Chantell Montiel MA null, [facility] 09/08/2025 08:26:14 Tdap 9 completed Lizeth her, [facility] 09/29/2023 09:57:53 influenza, seasonal, intradermal, preservative free 3 completed Lizeth her, [facility] 09/29/2023 09:57:53 Influenza, split virus, quadrivalent, PF 3 completed Angelo Ring MD [address], [address], [facility] 08/05/2023 13:57:35 Past Encounters Encounter ID Performer Location Encounter Start Date Encounter Closed Date Diagnosis/Indication Diagnosis SNOMED-CT Code Diagnosis ICD10 Code Diagnosis IMO Codes Diagnosis Note [id number] autoEComm erce [address] [facility] [place] [address] 10/30/2012 00:00:00 [id number] autoEComm erce [address] [facility] [address] [facility] [place] [address] 12/17/2012 00:00:00 [id number] autoEComm erce [address] [facility] [address] [facility] [place] [address] 01/28/2013 00:00:00 [id number] autoEComm erce [address] [facility] [place] [address] 05/21/2013 00:00:00 [id number] autoEComm erce [address] [facility] [address] [place], [place] [address] 02/24/2014 00:00:00 [id number] autoEComm erce [address] [facility] [address] [place], [place] [address] 03/03/2014 00:00:00 [id number] Jasen ADAM Mcfarland Main Office [address] [facility] [address] [place] [address] 11/29/2014 14:07:45 11/29/2014 14:55:38 Adnexal tenderness [id number] Acute abdomen 1544158 rebo und tenderness and fever. most tenderness seems to be adnexal. To ER for either CT ab/pelvis or transvag u/s. she will take herself to ER. high risk condition with threat to life [id number] Angelo Ring MD Main Office [address] [place] [address] [place] [address] 12/09/2014 08:01:30 12/09/2014 08:56:51 Diverticulitis of colon 094174357 Responding well to therapy which patient seems to be tolerating well. Will complete course and implement diverticul osis dietary modificati ons. If recurs may need further evaluation /intervent ion. [id number] ADAM Hoang Main Office [address] [facility] [address] [place] [address] 02/15/2015 09:48:55 02/15/2015 10:33:32 Cough 88524953 suspect bacterial infection given the new onset fever after 2 wks of sxs. pneumonia is possible but lung exam nl. sinusitis also possible since getting bloody rhinorrhea . will treat with coverage for both. she will call in 5 days if not improving and we will do a CXR [id number] Angelo Ring MD Main Office [address] [address] [place] [address] 03/17/2015 13:57:14 03/17/2015 15:19:51 Adult health examination 197107321 Immunizati on status utd, flu advised in the Fall. Cervical cancer screening utd. Regular dental and ophtho care advised as well as seatbelt and sunscreen use. Distracted driving discussed. Advance directives in place. Body mass index 30+ - obesity 713381949 Pain of mu ltiple joints 54355782 Has history of Lyme s/p tx. Now episodic flares of joint pain in the context of other autoimmune disease. Will check labs and consult rheum to rule out inflammato ry vs autoimmune joint disease. Minh thyroiditis 23673460 Followed by endo. Will check labs. Mixed anxi ety and depressive disorder 437264060 Suspect this might be playing into some of her symptoms. Will reassess at f/u. [id number] Essence sosa MD Main Office [address] [facility] [address] [place] [address] 05/30/2015 14:03:59 05/30/2015 15:06:20 Abdominal pain 96938051 most likely diverticul itis by hx and exam, feels similar to episode of diverticul itis in 12/01, this is 2nd episode, pain /10, eating and drinking, will check CBC, pt [...] 7 months in such a young person. [id number] Essence sosa MD Main Office [address] [place] [address] 06/01/2015 11:25:30 06/01/2015 11:52:16 Diverticulitis of colon 017017607 much better after 48 hours of abx, did not do CT scan and not needed at this time, any worsening pt needs to return. [id number] Angelo Ring MD Main Office [address] [facility] [address] [place] [address] 06/22/2015 14:07:00 06/22/2015 15:04:05 Diverticulitis of colon 119365655 Given recurrence will ask surgery for opinion on whether resection is indicated. Mixed anxi ety and depressive disorder 126141653 Improved, without meds. Will monitor. Minh thyroiditis 76475543 Will assume med prescribin g. [id number] Angelo Ring MD Main Office [address] [facility] [address] [place] [address] 07/11/2015 12:42:00 07/11/2015 13:32:02 Diplopia 78687239 Exam unremarkab le. Will image to look for evidence of gliosis/MS vs other brainstem lesions vs atypical migraine, vs recurrent lyme. Needs ophtho eval for more thorough fundoscopi c examinatio n. Will start with labs and depending on whether symptoms persist and imaging results neuro referral would be next step. Floaters i n visual field 015391763 Headache 32794849 [id number] Cherie Hannah PA-C Main Office [address] [address] [place] [address] 10/20/2015 13:24:01 10/20/2015 14:01:53 Diverticulitis of colon 676656667 K57.32 3 rd episode of acute diverticul itis. Will try to manage outpatient ly. Do STAT CBC with diff. If high, will ask her to go to the ER. PT. needs clear liquid diet and will strt on Flagyl and Levaquin. If no improvemen t in 24 hrs or high or worse , recommende d to go to the ER immediatel y. [id number] Angelo Ring MD Main Office [address] [address] [place] [address] 12/07/2015 08:06:46 12/07/2015 08:52:55 Diverticulitis of colon 928471083 K57.32 Scheduled for surgery. Minh thyroiditis 21 400869 E06.3 Will assume med prescribin g and monitoring . Needs infl uenza immunization 167575533 Z23 Myasthenia gravis 693572 04 G70.00 Immunology referral generated. Body mass index 30+ - obesity 057419084 Z68.38 Will check fasting labs today. [id number] Angelo Ring MD Main Office [address] [address] [place] [address] 01/02/2016 10:23:43 01/16/2016 11:46:47 [id number] Angelo Ring MD Main Office [address] [address] [place] [address] 03/28/2016 08:05:39 03/28/2016 09:29:39 Adult health examination 411465493 Z00.00 Immunizati on status utd, flu advised in the Fall. Cervical cancer screening utd. Regular dental and ophtho care advised as well as seat belt and sunscreen use. Distracted driving discussed. Advance directives in place. Body mass index 30+ - obesity 739980336 Z68.36 Minh thyroiditis 21 687068 E06.3 Biochemica lly and clinically euthyroid. Continue current dose and follow labs. Hyperglycemia 15955725 R 73.9 Mixed anxi ety and depressive disorder 026897602 F41.8 Improved, without meds. Seeing therapist. will monitor. [id number] Cherie Hannah PA-C Main Office [address] [place] [address] 01/14/2017 08:40:56 01/14/2017 09:24:29 Acute conjunctivitis 25154148 H10.31 [id number] Angelo Ring MD Main Office [address] [place] [address] 04/02/2017 09:26:44 04/02/2017 10:34:49 Adult health examination 852106837 Z00.01 Immunizati on status utd, flu advised in the Fall. Cervical cancer screening utd. Regular dental and ophtho care advised as well as seat belt and sunscreen use. Distracted driving discussed. Advance directives in place. Myasthenia gravis 030339 04 G70.00 Well controlled and followed by neuro. Body mass index 30+ - obesity 635609486 Z68.36 Increased frequency of urination 603699118 R35.0 Info provided on IC as I suspect this is the issue. Pt will call for urology referral if symptoms worsen/kwame nge. [id number] Angelo Ring MD Main Office [address] [place] [address] 04/03/2018 08:22:48 04/03/2018 09:21:03 Adult health examination 792554682 Z00.00 Immunizati on status utd, flu advised in the Fall. Cervical cancer screening utd. Regular dental and ophtho care advised as well as seat belt and sunscreen use. Distracted driving discussed. Advance directives in place. Myasthenia gravis 245223 04 G70.00 Well controlled and followed by neuro. Body mass index 30+ - obesity 413248314 Z68.36 Minh thyroiditis 21 920535 E06.3 Biochemica lly and clinically euthyroid. Continue current dose and follow labs. Vitamin D deficiency 347 80471 E55.9 WIll confirm adequate supplement ation. [id number] Angelo Ring MD Main Office [address] [address] 06/19/2018 14:32:25 06/19/2018 15:29:15 Sprain of jaw 74545950 S03.40XA Mouth guard, prn NSAID. Call dentist inb/worse. [id number] Angelo Ring MD Main Office [address] [place] [address] [place] [address] 06/23/2018 08:44:23 06/23/2018 10:11:04 [id number] Angelo Ring MD Main Office [address] [place] [address] 09/03/2018 14:32:34 09/03/2018 14:43:41 Needs influenza immunization 056178291 Z23 [id number] Angelo Ring MD Main Office [facility] [address] [address] 01/29/2019 10:50:49 01/29/2019 11:48:59 Acute pharyngitis 573080311 J02.9 Given symptom score and recent exposure will cover for strep despite negative rapid. Supportive tx advised as well. Will d/c abx if culture is negative. Call inb/worse or if new symptoms develop. Acute vaginitis 64233759 N76.0 Often an issue with abx for her. Rx provided in case. [id number] Angelo Ring MD Main Office [address] [place], [place] [address] [address] 04/05/2019 14:03:43 04/05/2019 15:27:44 Adult health examination 166478906 Z00.00 Immunizati on status updated, flu advised in the Fall. Cervical cancer screening utd. Regular dental and ophtho care advised as well as seat belt and sunscreen use. Distracted driving discussed. Advance directives in place. Administra tion of viral vaccine 91151162 Z23 Screening for malignant neoplasm of breast 482617948 Z12.39 Myasthenia gravis 095906 04 G70.00 Well controlled and followed by neuro. Body mass index 30+ - obesity 829405634 Z68.37 Minh thyroiditis 21 338444 E06.3 Biochemica lly and clinically euthyroid. Continue current dose and follow labs. Vitamin D deficiency 347 29625 E55.9 WIll confirm adequate supplement ation. Recurrent major depression in partial remission 99179656 F33.41 Symptoms are worse/limi ting. Will see if buproprion is tolerated/ effective. Macrocytosis 437808587 D 75.89 Will screen for nutritiona l deficienci es. Hypercholesterolemia 136 60322 E78.00 Based on current CVD risk score will work on TLC and plan to monitor. Left flank pain 96076623 9 R10.9 Start eval with UA and consider imaging depending on symptom evolution and test results. Impaired f asting glycemia 873188453 R73.01 Low CHO, regular exercise and weight loss advised. Obesity 882633110 E66.9 [id number] Angelo Ring MD Main Office 3640 [facility] [address] [place] [address] 05/13/2019 14:41:57 05/13/2019 15:25:19 Recurrent major depressive episodes, in full remission 377317955 F33.42 Responding well to low dose buproprion . Back to exercising and using mindfullne ss skills. Will continue current dose for now. Call with any problems. Vitamin D deficiency 347 98148 E55.9 Will d/c supplement [id number] Angelo Ring MD Main Office 3640 [facility] [address] [place] [address] 09/14/2019 12:37:13 09/14/2019 13:28:14 Needs influenza immunization 943669380 Z23 Major depr ession single episode, in partial remission 94290672 F32.4 Responding well to low dose buproprion . Planning to resume exercise. Will try alternatin g 300/150mg tablets and see if tolerated/ effective. [id number] Angelo Ring MD Main Office [address] [address] [place] [address] 11/05/2019 08:32:31 11/05/2019 09:43:46 Recurrent major depression in partial remission 73680026 F33.41 Overall doing well on reduced buproprion dose but not in a position to reduce further at this point. Will monitor. Will resume melatonin for sleep. [id number] Angelo Ring MD Main Office [address] [address] [place] [address] 02/28/2020 09:22:21 02/28/2020 13:24:40 Recurrent major depression in partial remission 81220676 F33.41 Overall doing well on reduced buproprion dose but not in a position to reduce further at this point. Will monitor. Impaired f asting glycemia 005868393 R73.01 Low CHO, regular exercise and weight loss advised. Due for f/u labs. Hypercholesterolemia 136 30877 E78.00 Due for reassessme nt, will discuss mgmt based on CVD risk score. Vitamin D deficiency 347 73780 E55.9 Will reassess on lower supplement dose. [id number] Angelo Ring MD Main Office [address] [address] [place] [address] 06/28/2020 14:04:47 06/28/2020 15:12:18 Hypertensive disorder 84207190 I10 Likely diet and weight related, but thyroid issues need to be considered as well. Will screen for end organ damage and start dual medication therapy. Pt advised of common/ser ious potential side effects and to call with any problems after starting. Will go for her fasting labs today. Titrate dose at f/u as tolerated to goal BP <130/90. Minh thyroiditis 21 151755 E06.3 Biochemica lly and clinically euthyroid. Continue current dose and follow labs. [id number] Angelo Ring MD Main Office [address] [address] [place] [address] 07/06/2020 14:50:52 07/06/2020 15:58:04 Adult health examination 255339647 Z00.00 Immunizati on status updated, flu advised in the Fall. Cervical cancer screening utd. Regular dental and ophtho care advised as well as seat belt and sunscreen use. Distracted driving discussed. Advance directives in place. Essential hypertension 00101120 I10 Well controlled on low dose ACEI. Continue as is for now. Screening for malignant neoplasm of breast 888261282 Z12.39 Myasthenia gravis 239790 04 G70.00 Stable and followed by neuro. Obesity 854489161 E66.9 Body mass index 30+ - obesity 157767587 Z68.39 Minh thyroiditis 21 197709 E06.3 Biochemica lly and clinically euthyroid. Continue current dose and follow labs. Vitamin D deficiency 347 03583 E55.9 Continue current dose. Recurrent major depression in partial remission 64408251 F33.41 Improved. Continue current regimen. Hypercholesterolemia 136 32959 E78.01 Based on current CVD risk score will work on TLC and plan to monitor. Impaired f asting glycemia 623159053 R73.01 Low CHO, regular exercise and weight loss advised. [id number] Angelo Ring MD Main Office 3640 [facility] 207 [facility] [place] [address] 09/05/2020 13:24:59 09/05/2020 13:59:04 Essential hypertension 13066430 I10 Well controlled on low dose ACEI. Continue as is for now. May decrease if BP goes down off of SNRI. Recurrent major depression in partial remission 52642587 F33.41 Will try slow wean and monitor symptoms. Call with any problems. Needs infl uenza immunization 409474829 Z23 [id number] Angelo Ring MD [facility] 3640 [facility] 207 [place] [address] 10/13/2020 08:10:30 10/13/2020 13:15:17 Essential hypertension 11762795 I10 Fair control based on reported home numbers. Wants to work on Na restrictio n and weight loss. Will monitor. Recurrent major depression in partial remission 93785844 F33.41 Symptoms have increased since stopping buproprion but overall coping well and heading in the right direction. Will monitor with therapy and no medication for now. Call if any problems. [id number] Angelo Ring MD [facility] 3640 [facility] [address] [place] [address] 02/23/2021 08:38:27 02/23/2021 09:43:57 Essential hypertension 60892011 I10 Fair control based on reported home numbers. Will titrate ACEI dose and monitor home BP. Advised to go for labs 2-3 weeks after dose increase. Healthy diet and exercise habits again discussed/ encouraged . Recurrent major depression in partial remission 88897705 F33.41 Symptoms remain since stopping buproprion but overall coping well and heading in the right direction. Will monitor with therapy and no medication for now. Call if any problems. Impaired f asting glycemia 469050691 R73.01 Low CHO, regular exercise and weight loss advised. Has been normal last 2 assessment s. Will remove diagnosis if normal this time around., [id number] Erasmo Sandoval MD [facility] 3640 [facility] 207 [facility] [place] [address] 03/08/2021 08:40:17 03/08/2021 11:56:11 Headache 74121280 R51.9 Multifacto rial: ( stress, kids school [...] already ordered by PCP. Minh thyroiditis 21 435323 E06.3 Myasthenia gravis 792698 04 G70.00 Essential hypertension 03878082 I10 Recent increase in lisinopril dosing which has improved her BP, still in normal range, do not suspect med is the cause of headache. continue to monitor BP. [id number] Angelo Ring MD Main Office 3640 [facility] 207 [place] [address] 04/26/2021 12:40:23 04/26/2021 13:13:55 Contusion of right foot 3359700345 7997608 S90.31XA Most likely soft tissue injury is the cause of her symptoms, but given persistent point tenderness will image to rule out fracture. Refer to ortho if positive. [id number] Angelo Ring MD Main Office [address] [place] [address] 07/12/2021 10:55:07 07/12/2021 12:03:32 Adult health examination 191711936 Z00.00 Immunizati on status updated, flu advised in the Fall. Will screen based on risk factors. Cervical cancer screening utd, pt to have mammo done this year. Regular dental and ophtho care advised as well as seat belt and sunscreen use. Distracted driving discussed. Advance directives in place. Essential hypertension 63135559 I10 Well controlled , continue current regimen. Screening for malignant neoplasm of breast 594600217 Z12.39 Screening for malignant neoplasm of cervix 525642918 Z12.4 Hepatitis C screening 41 3470667 Z11.59 Myasthenia gravis 121583 04 G70.00 Stable and followed by neuro. Obesity 388119121 E66.9 Minh thyroiditis 21 980312 E06.3 Biochemica lly and clinically euthyroid. Continue current dose and follow labs. Vitamin D deficiency 347 66473 E55.9 Will verify adequate dosing. Recurrent major depression in partial remission 10724960 F33.41 Improved. Continue current regimen. Hypercholesterolemia 136 46906 E78.01 WIll reassess and manage based on CVD risk score. Impaired f asting glycemia 479478689 R73.01 Low CHO, regular exercise and weight loss advised. WIll monitor. Bilateral knee pain 1187 682402 7019044 M25.561 M25.562 Likely OA but with comorbid autoimmune disease will screen for reactive arhtritis. Body mass index 40+ - severely obese 859391828 E66.01 Z68.41 Adjustment disorder with anxious mood 85719773 F43.22 Will monitor with SSRI trial. [id number] Angelo Ring MD [facility] [address] [place] [address] 08/17/2021 08:33:56 08/21/2021 09:12:13 Recurrent major depression in partial remission 47369443 F33.41 Improved but still symptomati c. Still following with therapist. Will continue current dose for now. Herpes zoster 5139965 B0 2.9 Diagnosed at and responding to valacyclov ir without significan t pain symptoms. Will call with any problems. [id number] Byron Rodrigues MD Tele[facility] 3640 [facility] [address] [facility] [address] 02/23/2022 08:23:04 02/25/2022 10:00:48 COVID-19 517549571 U07.1 Motrin or Tylenol OTC, not to [...] tmax 103 > go to nearest ED [id number] Angelo Ring MD Main Office 3640 [facility] [address] [facility] [address] 07/15/2022 10:59:17 07/15/2022 12:27:18 Adult health examination 324848516 Z00.00 Immunizati on status updated, flu advised in the Fall. Will screen based on risk factors. Cervical cancer screening utd, pt to have mammo done this year. Regular dental and ophtho care advised as well as seat belt and sunscreen use. Distracted driving discussed. Advance directives in place. Recurrent major depression in partial remission 91502158 F33.41 Improved but still symptomati c. Still following with therapist. Will continue current dose for now. Impaired f asting glycemia 236767145 R73.01 Low CHO, regular exercise and weight loss advised. Will monitor. Essential hypertension 94913983 I10 Well controlled , continue current regimen. Screening for malignant neoplasm of breast 370650647 Z12.39 Screening for malignant neoplasm of cervix 047904255 Z12.4 Body mass index 40+ - severely obese 337802619 E66.01 Z68.42 Hypercholesterolemia 136 29488 E78.01 Will reassess and manage based on CVD risk score. Vitamin D deficiency 347 12811 E55.9 Level has been perfect on current dose. Contiue as is. Minh thyroiditis 21 225902 E06.3 Biochemica lly and clinically euthyroid. Continue current dose and follow labs. Additional labs ordered for the prescriber of her throid supplement s. Myasthenia gravis 046773 04 G70.00 Stable and followed by neuro. Luis Miguel cano 5809675 B35. 3 [id number] [facility] MD [facility] 3640 [facility] 207 [place] [address] 08/16/2022 08:17:39 08/16/2022 09:29:36 Recurrent major depression in partial remission 33489832 F33.41 Improved but still symptomati c. Will titrate buproprion dose and reassess in 3-4 weeks. Persistent cough 9210527 02 R05.3 Will rule out pneumonia. If CXR positive or if symptoms worsen/sec ond sickening occurs would start her on a course of doxy. May need to consider ACEI induced cough but this sounds more inflammato ry. Generalize d anxiety disorder 93568605 F41.1 Buproprion seems to help. Not using any anxiolytic s. Wonder if there is a component of OCD. [id number] Angelo Ring MD Main Office [address] [place] [address] 10/31/2022 12:35:45 10/31/2022 13:21:07 Generalized anxiety disorder 49766646 F41.1 Buproprion with low dose escitalopr am seems to be helping. Not using any anxiolytic s. Wonder if there is a component of OCD. Consider weaning off of SSRI if remains well controlled . Fever 719966690 R50.9 With exposure and fever here will screen for likely possible viral proccesees in community and more specifical ly at her home. Essential hypertension 33431989 I10 Not well controlled today and not sure if it is related to febrile illness or buporoprio n. Will reassess after acute issues resolve. [id number] Erasmo Sandoval MD Main Office 5920 [facility] 207 [place] [address] 11/22/2022 13:58:23 11/22/2022 14:45:50 Essential hypertension 55294441 I10 will check blood work and urine, and wean off wellbutrin . ut back on sodium, hydration, rest, take lisinopril as directed. F/U as scheduled in Dec.EKG NSR, no acute abnormalit y Anxiety 58696069 F41.9 Cut wellbutrin back to 150mg daily x 7 days. then 150mg every other day for 7 days, if needed may extend to take 150mg every 3rd day then stop med. Prediabetes 454003003 R7 3.03 Hyperlipidemia 96094038 E78.5 Pain of right heel 51573 58669 841028 M79.671 recommend keeping heels clean and dry, use mometasone at bedtime x 7 days then start flexitol heel balm daily. Candidiasis of vagina 72 276729 B37.31 will rx diflucan as she is on abx and gets yeast frequently . [id number] Erasmo Sandoval MD [facility] [address] [place] [address] 12/07/2022 16:43:59 12/09/2022 10:40:33 Eruption 273509684 R21 Possible drug eruption to keflex. [id number] Angelo Ring MD Main Office [address] [place] [address] [place] [address] 12/24/2022 14:31:04 12/24/2022 15:30:08 Essential hypertension 65029945 I10 Well controlled on ACEI, tolerating therapy continue current dose. Liver enzy mes level above reference range 745923939 R74.01 Will reassess and evaluate further if persistent . [id number] Angelo Ring MD Main Office [address] [place] [address] 01/16/2023 09:03:04 01/16/2023 10:05:21 Generalized anxiety disorder 16900642 F41.1 Obesity 322619864 E66.9 Essential hypertension 92341772 I10 Well controlled on ACEI, tolerating therapy continue current dose. Needs to be monitored on stimulant therapy. Attention deficit hyperactivity disorder, combined type 95340168 F90.2 Will trial a course of stimulant therapy to help augment SSRI and monitor BP/symptom s. Titrate as tolerated to goal symptoms control. If effective transition to ER formulatio n. Recurrent major depression in partial remission 76902726 F33.41 Worse, reluctant to titrate SSRI further given her weight issues. [id number] Angel[facility] MD [facility] 3640 [facility] [address] [place] [address] 02/07/2023 13:10:43 02/07/2023 13:56:06 Generalized anxiety disorder 37062302 F41.1 Not well controlled but secondary to stressors which are hopefully going to be mitigate soon. Recurrent major depression in partial remission 93455599 F33.41 Worse, reluctant to titrate SSRI further given her weight issues. Attention deficit hyperactivity disorder, predominantly inattentive type 63038202 F90.0 See if atomoxetin e helps and is better tolerated. Essential hypertension 67866045 I10 Well controlled on ACEI, tolerating therapy continue current dose. Snoring 38303735 R06.83 Based on increasing weight and other symptoms sleep testing to r/o CHRIS is appropriat e. [id number] Angelo Ring MD Main Office 3640 [facility] [address] [place] [address] 04/01/2023 11:19:49 04/01/2023 12:38:49 Generalized anxiety disorder 09698377 F41.1 Not well controlled but secondary to stressors which are hopefully going to be mitigate soon. Snoring 04737465 R06.83 Referral being coordinate d. Impaired f asting glycemia 908664379 R73.01 Low CHO, regular exercise and weight loss advised. Will monitor. Recurrent major depression in partial remission 35092344 F33.41 Worse, reluctant to titrate SSRI further given her weight issues. Ondina 4 weeks since last dose increase. Will monitor. Essential hypertension 61791521 I10 Well controlled on ACEI, tolerating therapy continue current dose. Minh thyroiditis 21 575040 E06.3 Biochemica lly and clinically euthyroid. Continue current dose and follow labs. Additional labs ordered for the prescriber of her throid supplement s. [id number] Angelo Ring MD [facility] 3640 [facility] [address] [place] [address] 05/02/2023 08:32:28 05/06/2023 08:24:01 Generalized anxiety disorder 17343292 F41.1 Improved since escitalopr am dose titration. Will continue as is for now. Recurrent major depression in partial remission 24871238 F33.41 Fair control/co ping better on escitalopr am. Will continue current dose. Obstructiv e sleep apnea of adult 7846649049 103 G47.33 Positive sleep study, no follow up available with sleep medicine until Jul. Pt is ok waiting. I would defer to them as her treatment plan will likely be ivis rowan Contact dermatitis 82963 004 L25.9 OTC cortisone helps somewhat. Will try higher potency for short term only. Body mass index 40+ - severely obese 870513244 E66.01 Z68.41 Member is 17 years of [...] or any other GLP-1 receptor agent. Prediabetes 307328282 R7 3.03 [id number] Angelo Ring MD [facility] 3640 [facility] [address] [place] [address] 06/13/2023 08:26:00 06/13/2023 10:16:05 Generalized anxiety disorder 26847541 F41.1 Improved on escitalopr am dose titration, but virtually resolved with CHRIS therapy. Will try reducing lexapro dose. Morbid obesity 458982026 E66.01 Obstructiv e sleep apnea of adult 1398165083 103 G47.33 On CPAP, tolerating and complying well with it with dramatic impact on systemic symptoms. Prediabetes 529739667 R7 3.03 Will titrate GLP1 agonist dose and go up to 1mg in 4 weeks if continuing to do well. Recurrent major depression in partial remission 68452298 F33.41 Doing much better from a mod perspectiv e on CPAP and not happy with thi impact on libido. Wants to try reducing dose to 5mg daily. Will taper slowly [id number] Angelo Ring MD Main Office 3640 [facility] [address] [place] [address] 08/05/2023 12:49:12 08/05/2023 14:02:15 Adult health examination 875084103 Z00.00 Immunizati on status updated, flu advised in the Fall. Will screen based on risk factors. Cervical cancer screening utd, pt to have mammo done this year. Regular dental and ophtho care advised as well as seat belt and sunscreen use. Distracted driving discussed. Advance directives in place. Needs infl uenza immunization 039027150 Z23 Body mass index 40+ - severely obese 592143003 E66.01 Z68.41 Member is 17 years of [...] agent. Recurrent major depression in partial remission 15416040 F33.41 Under much better control since starting CPAP Accidental ly self titrated her dose down to 5mg and doing well. Will stay there for now. Impaired f asting glycemia 929890120 R73.01 Low CHO, regular exercise and weight loss advised. Will monitor. Essential hypertension 19055030 I10 Well controlled , continue current regimen. Screening for malignant neoplasm of breast 843381964 Z12.39 Screening for malignant neoplasm of cervix 903926401 Z12.4 Hypercholesterolemia 136 12025 E78.01 Will reassess and manage based on CVD risk score. Vitamin D deficiency 347 50329 E55.9 Level has been perfect on current dose. Continue as is. Minh thyroiditis 21 731469 E06.3 Biochemica lly and clinically euthyroid. Continue current dose and follow labs. Additional labs ordered for the prescriber of her throid supplement s. Myasthenia gravis 262072 04 G70.00 Stable and followed by neuro. Abnormal g ait due to impairment of balance 201856038 R26.89 Prediabetes 110251680 R7 3.03 Will titrate GLP1 agonist dose and go up to 2mg in 4 weeks if continuing to do well. Obstructiv e sleep apnea of adult 6169501191 103 G47.33 On CPAP, tolerating and complying well with it with dramatic impact on systemic symptoms. [id number] Byron Rodrigues MD [facility] 3640 [facility] 207 [place] [address] 09/22/2023 14:22:00 09/22/2023 15:45:04 Adverse reaction to drug 02515526 T50.905A Adverse reaction to 2 mg of [...] PCP as scheduled in November. Morbid obesity 668938984 E66.01 Clear benefit from use of GLP-1 despite no weight loss so far on Ozempic. See above. Prediabetes 381787590 R7 3.03 Continue strict low calorie low carb diet and small dose of GLP-1 Ozempic. Discuss with PCP retrying 1 mg in the future if 0.5 mg dose was tolerated well. Avoid using at 2 mg dose. Nausea 141662618 R11.0 [id number] DENISSE NIETO Main Office [address] [address] [place] [address] 10/27/2023 10:39:25 10/27/2023 11:05:58 Cough 52591368 R05.9 -reports of recovering from viral infection- had sore throat that resolved after x1 week (resolved 10/23)-has not taken any OTC medication s-discusse d conservati ve measuremen ts to provide symptomati c relief-lopez krissy order xray for further evaluation Expiratory wheezing 9763 007 R06.2 hx of exercise induced asthma- has not needed/use d an inhaler in yearswi provide albuterol inhaler as wheezing was appreciate d on the PE [id number] Angelo Ring MD Main Office [address] [place] [address] 12/04/2023 14:27:42 12/04/2023 16:00:04 Generalized anxiety disorder 23858768 F41.1 Improved on escitalopr am and CHRIS therapy. Morbid obesity 622972893 E66.01 Hold off on revisitng GLP1 agonsit therapy until chest pain is addressed. Recurrent major depression in partial remission 83970443 F33.41 Under much better control since starting CPAP Accidental ly self titrated her dose down to 5mg and doing well. Will stay there for now. Right side d chest pain 677677058 R07.89 Suspect soft tissue injury/str ain secondary to prolonged severe cough. Treatment options significan tly limited secondary to pt's myesthenia gravis (no NSAIDS/benitez roid). See if heat, and muscle relaxant helps as well as try topical lidocaine therapy if insurance will allow. Rule of rib fracture/P TX with focused imaging. Female uri pedro stress incontinence 58023075 N39.3 With her neuromuscu lar disorder may need further eval if persistent /worse. Will rule out UTI. Myasthenia gravis 801175 04 G70.00 Stable and followed by neuro, but condition and medical therapy impact many treatment options. Body mass index 40+ - severely obese 532362453 Z68.43 [id number] Angelo Ring MD Main Office [address] [facility] [address] [place] [address] 04/06/2024 12:43:35 04/06/2024 13:25:15 Generalized anxiety disorder 28385378 F41.1 Stable on current escitalopr am dose and CHRIS therapy. Prediabetes 415684327 R7 3.03 Will titrate GLP1 agonist dose and go up to 1mg dose Myasthenia gravis 326202 04 G70.00 Needs therapy assistance for global strength/b alance as well as help maintainin g ADLs. Requesting handicap placard which is reasonable . [id number] Angelo Ring MD Main Office [address] [facility] [address] [place] [address] 07/08/2024 12:32:31 07/08/2024 13:26:04 Myasthenia gravis 35431781 G70.00 On Cellcept, and labs being monitored closely by neuro. Minh thyroiditis 21 668900 E06.3 Biochemica lly and clinically euthyroid. Continue current dose and follow labs. Overdue for labs and does not want to follow with integrativ e medicine who prescribed /monitored labs in the past. Obstructiv e sleep apnea of adult 4979264016 103 G47.33 On CPAP, tolerating and complying well with it with dramatic impact on systemic symptoms. Morbid obesity 053025421 E66.01 Certainly a candidate for GLP 1 agonist therapy. I hope insurance realizes this. Body mass index 40+ - severely obese 352243030 E66.01 Z68.41 Essential hypertension 16535226 I10 Well controlled , continue current regimen. Prediabetes 167471170 R7 3.03 Insurance rejected Ozempic, due for labs. [id number] Angelo Ring MD Main Office [address] [facility] [address] [place] [address] 09/07/2024 08:48:57 09/07/2024 09:51:38 Adult health examination 525485119 Z00.00 Immunizati on status utd. Will screen based on risk factors. Cervical cancer screening utd, pt to have mammo done this year. Regular dental and ophtho care advised as well as seat belt and sunscreen use. Distracted driving discussed. Advance directives in place. Screening for malignant neoplasm of cervix 882586930 Z12.4 Screening for malignant neoplasm of breast 781999527 Z12.39 Body mass index 40+ - severely obese 997326154 E66.01 Z68.43 Ins ultimately approved GLP1 therapy and she is responding . WIll titrate dose as tolerated. Needs infl uenza immunization 516107901 Z23 Recurrent major depression in partial remission 07269206 F33.41 Under much better control since starting CPAP, well controlled on current SSRI dose. Impaired f asting glycemia 792842905 R73.01 Low CHO, regular exercise and weight loss advised. Will monitor. Essential hypertension 34651912 I10 Well controlled , continue current regimen. Hypercholesterolemia 136 80134 E78.01 Will reassess and manage based on CVD risk score. Vitamin D deficiency 347 43036 E55.9 Level has been perfect on current dose. Continue as is. Minh thyroiditis 21 309961 E06.3 Biochemica lly and clinically euthyroid. Continue current dose and follow labs. Additional labs ordered for the prescriber of her throid supplement s. Myasthenia gravis 176041 04 G70.00 Stable and followed by neuro. Prediabetes 374992871 R7 3.03 Will titrate GLP1 agonist dose and go up to 2mg in 4 weeks if continuing to do well. If A1c remains >6.4 will enter diabetes diagnosis. Obstructiv e sleep apnea of adult 2331446909 103 G47.33 On CPAP, tolerating and complying well with it with dramatic impact on systemic symptoms. Screening for malignant neoplasm of colon 694212332 Z12.11 [id number] Angelo Ring MD Main Office [address] [facility] [address] [place] [address] 12/07/2024 10:28:22 12/07/2024 11:50:35 Prediabetes 430659440 R73.03 Will titrate GLP1 agonist dose and go up to 15mg in 4 weeks if continuing to do well. Generalize d anxiety disorder 24878751 F41.1 Stable on current escitalopr am dose and CHRIS therapy. Essential hypertension 84228726 I10 Well controlled , continue current regimen. Body mass index 40+ - severely obese 962981738 E66.01 Z68.43 Ins ultimately approved GLP1 therapy not responding as would have expected. Will titrate dose as tolerated. Pain in bi lateral legs 7518707023 9282137 M79.604 M79.605 ? neurogenic vs vascular. will start with vascular eval and go further from there depending on outcome. Recurrent major depression in partial remission 59756856 F33.41 Under much better control despite increased personal stressors. Well controlled on current SSRI dose. [id number] Erasmo Sandoval MD Main Office [address] [facility] [address] [place] [address] 02/16/2025 09:45:44 02/16/2025 10:44:05 Acute pharyngitis 326908045 J02.9 negative strep test. Moderate dehydration 835 0311536 105 E86.0 tachycardi a, has had N/V/D. encouraged hydration with electrolyt es, water. zofran as eeded for nausea Essential hypertension 76003463 I10 BP stable Myasthenia gravis 303435 04 G70.00 Food-borne gastroenteritis 349438969 A05.9 suspect food related, neg covid/ flu and strep. sx overall imrpoving, encouraged zofran as needed, hydration, bland diet and advance as tolerated, if not better next week f/u as scheduled. [id number] Angelo Ring MD Main Office [address] [facility] [address] [place] [address] 02/22/2025 14:43:13 02/22/2025 15:31:58 Morbid obesity 728489139 E66.01 On GLP1 and tolerating well, but not really responding . Will try to increase dose further. Generalize d anxiety disorder 50744574 F41.1 Stable on current escitalopr am dose and CHRIS therapy. Essential hypertension 74743880 I10 Well controlled , continue current regimen. Recurrent major depression in partial remission 46234050 F33.41 Under much better control despite increased personal stressors. Well controlled on current SSRI dose. Body mass index 40+ - severely obese 951630509 E66.01 Z68.43 Ins ultimately approved GLP1 therapy not responding as would have expected. Will titrate dose as tolerated. Obstructiv e sleep apnea of adult 4719687137 103 G47.33 On CPAP, tolerating and complying well with it with dramatic impact on systemic symptoms. Venous ins ufficiency of lower limb 153487703 I87.2 Has ablations scheduled next week [id number] Angelo Ring MD Main Office [address] [facility] [address] [place] [address] 04/07/2025 14:35:27 04/07/2025 15:39:46 Morbid obesity 327104337 E66.01 On GLP1 and tolerating well, but not a max dose. Insurance is not covering any further. Other weight loss medication s are not ideal options based on her comorbidit ies. Body mass index 40+ - severely obese 327963257 E66.01 Z68.43 Insurance denying GLP 1 therapy because of lack of effect. Will try Obstructiv e sleep apnea of adult 1410517970 103 G47.33 On CPAP, tolerating and complying well with it. Prediabetes 054651131 R7 3.03 Will monitor off of GLP1 agonist Pain of knee region 1003 782428 M25.561 G89.29 48286829 Possibly OA vs soft tissue vs vascular. If xray normal will discuss physiatry referral. Obesity 955510140 E66.9 BMI > 30 Axillary h idradenitis suppurativa 506544522 L73.2 5243198 Symptoms are suspicious for this diagnosis. Treatment options limited by allergies and comorbidit ies. Having thymus MRI, which should rule out chest pathology and recent mammogram was negative. Consider further eval if persistent /worse. [id number] Angelo Ring MD Main Office [address] [facility] [address] [facility] [place] [address] 05/26/2025 09:54:16 05/26/2025 11:00:22 Essential hypertension 49462891 I10 Well controlled , continue current regimen. Lipedema o f lower extremity 6079337118 R60.0 0319764521 Followed by vein center, but needs PT for lip/lymphe alyssa Patellofem oral syndrome of bilateral knees 1721022490 8516321 M22.2X1 M22.2X2 64688918 Will comorbidit ies there is concern for CTD. Will ask rheum for guidance. Body mass index 40+ - severely obese 685753484 E66.01 Z68.43 Insurance denying GLP 1 therapy because of lack of effect. Has appt with [facility] Wt mgmt 06/06, and Dr. Maynard as well. Myasthenia gravis 821838 04 G70.00 Stable and followed by neuro. 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 Being referred to thoracic surgery by neuro. 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 Seen incidental ly on chest CT. Will ask GI to help evaluate further. Obstructiv e sleep apnea of adult 6224323901 103 G47.33 On CPAP, tolerating and complying well with it. Being considered for BIPAP. Prediabetes 695906113 R7 3.03 Will monitor off of GLP1 agonist [id number] Angelo Ring MD Main Office [address] [facility] [address] [facility] [place] [address] 09/08/2025 08:19:15 09/08/2025 09:26:11 Adult health examination 095355307 Z00.00 Immunizati on status utd. Will screen based on risk factors. Cervical cancer screening utd, pt to have mammo done this year. Regular dental and ophtho care advised as well as seat belt and sunscreen use. Distracted driving discussed. Advance directives in place. Body mass index 40+ - severely obese 325918510 E66.01 Z68.42 Making strides with [facility] Wt mgmt and Dr. Maynard as well. Obstructiv e sleep apnea of adult 2868693276 103 G47.33 On CPAP, tolerating and complying well with it. Screening for malignant neoplasm of cervix 792531850 Z12.4 Will request recent PAP result. Screening for malignant neoplasm of breast 050691179 Z12.39 Due in Dec Pain of le ft shoulder region 0236405345 M25.512 88457792 c/w biceps tendinitis /rotator cuff disease. Try home/forma l PT and PMR consult if persistent /worse. Myasthenia gravis 675778 04 G70.00 Stable and followed by neuro. Off of immunomodu latory meds since thymectomy . Vitamin D deficiency 347 01625 E55.9 Level has been perfect on current dose. Continue as is. Prediabetes 463173046 R7 3.03 Will monitor off of GLP1 agonist Acquired hypothyroidism 405164937 E03.9 33003 On T4?T3 supplement . Hyperlipidemia 07058657 E78.5 Due for reassessme nt, will discuss mgmt based on CVD risk score. Recurrent major depression in partial remission 74881652 F33.41 Under much better control despite increased personal stressors. Well controlled on current SSRI dose. Generalize d anxiety disorder 57049807 F41.1 Stable on current escitalopr am dose and CHRIS therapy. [id number] Angelo Ring MD Main Office [address] [facility] [address] [facility] [place] [address] 10/24/2025 10:14:30 10/24/2025 13:42:06 Body mass index 40+ - severely obese 299299593 E66.01 Z68.42 Making strides with Danna Wt mgmt and Dr. Maynard as well. [id number] Angelo Ring MD Main Office [address] [facility] [address] [place] [address] 10/28/2025 08:22:00 10/28/2025 09:09:12 Morbid obesity 525457381 E66.01 Off of GLP1 and s/p gastrectom y with impressive results. Working with bariatric surgery on dietary plan. Essential hypertension 29154006 I10 Well controlled , continue current regimen. Agree with current dosing plan. Call with any problems or if 10mg lisinopril script is needed. Body mass index 40+ - severely obese 098701464 E66.01 Z68.42 Making strides with Danna olivarez and Dr. Maynard as well. Prediabetes 471997194 R7 3.03 Will monitor with weight loss. Steatotic liver disease 600974577 K76.0 9401 Seen by GI, with minimally [...] ID Quick Member ID Guarantor Name 07/07/[address] [place] [address] [id number] Frannie Edouard [id number] Joanna Elise 07/11/[address] [place] [address]) [id number] Joanna Elise [id number] Joanna Elise 10/28/[address] [place] [address]) [id number] Joanna Elise [id number] Joanna Elise Notes Date Note Type Note Provider Name and Address Organization Details Recorded Time 025 text/ht ml Musculoskeletal PainReported by PatientHPIFor [...] medications for morbid obesity. Angelo Ring MD [address] [facility] [address], [place], [address], [facility] 04/12/2025 16:26:53 025 text/ht ml Musculoskeletal PainReported [...] weigfht since last visit. Angelo Ring MD [address] [address], [place], [address], [facility] [place] 05/26/2025 13:01:18 025 text/ht ml Generic HPI TemplateReported by PatientHere for physical, s/p thymectomy, will be going for gastric sleeve in October. Seeing dentist and ophtho regularly. Angelo Ring MD [address] [facility] [address], [place], [address], [facility] [place] 09/08/2025 09:24:55 025 text/ht ml Hospitalization Contact RecordReported by PatientHospitalization Contact RecordFor follow up, patient [facility]shospital[facility],admit date: (please enter in format 'mm/dd/yyy') (10/18/2025),date of discharge: (please enter in format 'mm/dd/yyyy') (10/19/2025), anddate of contact: (please enter in format 'mm/dd/yyyy') (10/24/2025).DONOVAN with in 48 working hours? yes HCP on file? yesMOLST on file? noDischarge Summary available? yes 45 year old female underwent elective surgery laparoscopic sleeve gastrectomy and gastropexy . Procedure was uneventful . Post Op patient was doing very well , hit all milestones to be discharge to home. Prior to discharge patient review with nurse follow up instruction , diet regimen , activity and incision protocol. Patient to wear abdominal binder and followup with surgeon as instructed. Product Safety Professional DONOVAN call to patient regarding recent discharge status , provider requesting patient schedule follow up with our office . Coordinator left detailed message on voice mail for patient to call office back on status and to schedule follow up. In regards to lisinopril is being closely monitor by surgeon, patient checking Bp everyday at from readings is instructed on medication regimen. Has follow up with surgeon on Friday10/26/2025 . reviewed and discuss medication regimenScheduled with PCP for this coming Friday10/28/2025 at 8:30 am. Angelo Ring MD [address] [address], [place], [address], [facility] [place] 10/24/2025 12:05:02 025 text/ht ml Musculoskeletal PainReported by PatientHPIFor severity, [...] effect plateaued. Enrolled with bariatric surgery at [facility] and had lap sleeve gastrectomy on , weight down 24 pounds, feels great. Angelo Ring MD [address] [address], [place], [address], [facility] [place] 10/28/2025 09:22:35 OBGyn Episode No OBEpisode recorded.
--- OUTSIDE RECORDS SUMMARY | 2025-11-14 14:34 | XMS_ITS | Encounter Summary ---
Author Organization [facility] Address [address] [place] [address] Phone Care Team Providers Care Bowling Ball Marker Name Role Phone Angelo Dey MD Primary Care Provider 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 * MRI/CAT Scan - Closed Specialty Diagnoses / Procedures Referred By Partha harvey Referred To Contact Radiology Procedures Outside CT Chest Report Only [facility] [address] [place] [address] Phone: tel: fax: Referral ID Status Reason Start Date Expiration Date Visits Re quested Visits Authorized [id number] Closed 10/27/2025 1 1 Encounter Details Date Type Department Care Team (Late st Contact Info) Description 10/27/2025 Orders Only [facility] [address] [place] [address] Radha Randhawa MD [address] [place] [id number] Social History Tobacco Use Types Packs/Day Years [...] Description 04/27/2026 9:15 AM EDT Office Visit [facility] [address] [place] [id number] Megha Rojas, PUNEET [address] [place] [id number] [email or web address] documented as of this encounter Procedures Procedure Name Priority Date/Time Associated Diagnosis Comments OUTSIDE LAB Routine 10/27/2025 2:06 PM EST OUTSIDE US IMAGING REPORT ONLY Routine 09/27/2025 2:[address] CHEST REPORT ONLY Routine 05/16/2025 2:19 PM EDT documented in this encounter Results * Outside Lab (Non-MGB) (10/27/2025 2:06 PM EST) us Historical Provider LAB BLOOD BKR ORDERABLES Final Result * Outside US Imaging??Report Only (09/27/2025 2:24 PM EST) us Historical Provider MD CHILDRESS US OP Final Res ult * Outside CT??Chest Report Only (05/16/2025 2:19 PM EDT) us Historical Provider MD CHILDRESS CT CHEST Final Res ult documented in this encounter Visit Diagnoses Not on filedocumented in this encounter Care Teams Bowling Ball Marker Relationship Specialty Start Date End Date Angelo Dey MD [address] [place] [address] PCP - General Internal Medicine 06/21/25 documented as of this encounter Additional Source Comments The information contained in this document represents components of the legal health record. It is not the complete legal health record.[facility]
--- OUTSIDE RECORDS SUMMARY | 2025-11-14 14:34 | XMS_ITS | Continuity of Care Document ---
Author Organization [facility], Main Office Address [address] [place] [address] Care Team Providers Care Cloth Pattern Maker Name Role Phone ANGELO RING Primary Care Provider [phone] AIYANA OBREGON Neurologist [facility] Glass Vial Bending Conveyor Feeder [phone] [facility] SCHEDULING DEPT Community Resource Consultant [facility] Heating Repair Technician IRINEO LANGFORD Vascular Surgeon [phone] [facility] Sleep Medicine JJ MEDRANO Thoracic Surgeon [phone] DANNA PEACE Bariatric Surgeon [phone] MISHA MAYNARD Naturopathic Medicine [phone] Assessment [...] recorded . Patient TargetsNo targets recorded. Patient InstructionsNo instructions recorded. 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 None Reported. Results Created Date Observation Date Name Description Value Unit Range Abnormal Flag Note LastModifiedBy Organization Detail LastModifiedTime 09/27/20 25 09/27/2025 liver elast ograp hy, mecha nical ly induc ed shear wave (PROC ) No observ ation record ed. [facility] (Medical Records) [address] [place], [address], 09/28/2025 09:08:06 11/04/20 25 11/03/2025 US, samir sterling s, oziel huff, santos ete No observ ation record ed. [facility] [address] [facility] [address], [place], [address], 11/06/2025 14:36:40 Result Notes None recorded. Problems Name Problem SNOMED Code Status Onset Date Resolution Date Notes Provider Name and Address Organization Details Recorded Time Body mass index 30+ - obesity 352138860 Completed 07/06/2020 [facility] 0 15:05:27 Pain of multiple joints 44166020 Active Not Available [facility] 3 13:43:23 Mixed anxiety and depressi ve disorder 522288516 Completed 04/02/2017 Angelo Ring MD [address] [facility] [address], [place], [address] , [facility] 7 10:20:46 Abdomina l pain 68698426 Completed 03/28/2016 Angelo Ring MD [address] [facility] [address], [place], [address] , [facility] 6 21:33:38 Divertic ular disease 278327509 Active s/p partial colectom y Not Available [facility] 3 13:43:23 Diplopia 75579734 Active Not Available [facility] 3 13:43:23 Floaters in visual field 960445414 Completed 03/28/2016 Angelo Ring MD [address] [facility] [address] [place], [address] , [facility] 6 21:33:38 Headache 73494497 Completed 04/02/2017 Angelo Ring MD [address] [facility] [address], [address] , [facility] 7 10:20:58 Myasthen ia gravis 01081238 Active seronega tive Angelo Ring MD [address] [facility] [address], [place], [address] , [facility] 5 06:32:36 Acne 37032976 Completed 04/02/2017 Angelo Ring MD [address] [facility] [address], [place], [address] , [facility] 7 10:20:27 Hypergly cemia 22758092 Completed 04/02/2017 Angelo Ring MD [address] [facility] [address], [place], [address] , [facility] 7 10:21:18 Vitiligo 61247252 Active Not Available [facility] 3 13:43:23 Autoimmu ne polyendo crinopat hy 54081905 Active Not Available [facility] 3 13:43:23 Malaise and fatigue 153066062 Completed 201205/31/2014 IMPRESSI ON: COUPLED TO CHEST [...] ANNOTATI ON/ADDEN DUM Angelo Ring MD [address] [facility] [address], [place], [address] , [facility] 6 21:33:38 History of infectio us disease 891851506 Completed 201205/31/2014 RECORDED 01/28/20 13 4:18PM BY CASSIA MCPHERSON MA, ANNOTATI ON/ADDEN DUM Angelo Ring MD [address] [facility] [address], [place], [address] , [facility] 6 21:33:38 Immuniza tion refused Completed 201205/31/2014 RECORDED 01/28/20 13 4:18PM BY CASSIA MCPHERSON MA, ALEX ON/PINEDA Ring MD [address], [place], [address] , [facility] 6 21:33:38 Malaise and fatigue 585921559 Completed 201206/27/2014 IMPRESSI ON: COUPLED TO CHEST [...] MCPHERSON MA, ALEX ON/PINEDA Ring MD [address] [facility] [address], [place], [address] , [facility] 6 21:33:38 History of infectio us disease 479404875 Completed 201206/27/2014 RECORDED 01/28/20 13 4:18PM BY CASSIA MCPHERSON MA, ALEX ON/PINEDA Ring MD [address] [facility] [address], [place], [address] , [facility] 6 21:33:38 Immuniza tion refused Completed 201206/27/2014 RECORDED 01/28/20 13 4:18PM BY CASSIA MCPHERSON MA, ALEX PAGE/PINEDA Ring MD [address] [facility] [address], [place], [address] , [facility] 6 21:33:38 Patient status finding [id number] Completed 201205/31/2014 RECORDED 05/21/20 13 2:50PM BY GANESH HOPE MA, ANNOTATI ON/PINEDA Ring MD [address] [facility] [address], [place], [address] , [facility] 6 21:33:38 Chest pain 09003003 Completed 201205/31/2014 IMPRESSI ON: SYMPTOMS C/W EIA POSSIBLE ANXIETY COMPONEN T. WILL TRY PRE EXERCISE MDI. ADVISED TO CALL IF PERSISTA NT/WORSE .; RECORDED 05/21/20 13 2:50PM BY GANESH HOPE MA, CAROLINEATI ON/PINEDA Ring MD [address] [address], [place], [address] , [facility] 6 21:33:38 Tachycar effie 4070310 Completed 201205/31/2014 IMPRESSI ON: WILL SCREEN FOR CONDUCTI ON ABNORMAL ITY.; RECORDED 05/21/20 13 2:50PM BY GANESH HOPE MA, ALEX ON/PINEDA Ring MD [address] [address], [place], [address] , [facility] 6 21:33:38 Patient status finding [id number] Completed 201206/27/2014 RECORDED 05/21/20 13 2:50PM BY GANESH HOPE MA, ALEX ON/PINEDA Ring MD [address] [facility] [address], [place], [address] , [facility] 6 21:33:38 Chest pain 34056738 Completed 201206/27/2014 IMPRESSI ON: SYMPTOMS C/W EIA POSSIBLE ANXIETY COMPONEN T. WILL TRY PRE EXERCISE MDI. ADVISED TO CALL IF PERSISTA NT/WORSE .; RECORDED 05/21/20 13 2:50PM BY GANESH HOPE MA, ANNOTATI ON/PINEDA Ring MD [address] [facility] [address], [place], [address] , [facility] 6 21:33:38 Tachycar effie 1641576 Completed 201206/27/2014 IMPRESSI ON: WILL SCREEN FOR CONDUCTI ON ABNORMAL ITY.; RECORDED 05/21/20 13 2:50PM BY GANESH HOPE MA, ANNOTATI ON/ADDEN DUM Angelo Ring MD [address] [facility] [address], [place], [address] , [facility] 6 21:33:38 Influenz a vaccine needed 98063767364 06 Completed 201205/31/2014 RECORDED 07/31/20 13 10:03AM BY RAMYA BENTON I, NURSE VISIT Angelo Ring MD [address] [facility] [address], [place], [address] , [facility] 6 21:33:38 Influenz a vaccine needed 12134989003 06 Completed 201206/27/2014 RECORDED 07/31/20 13 10:03AM BY RAMYA BENTON I, NURSE VISIT Angelo Ring MD [address] [facility] [address], [place], [address] , [facility] 6 21:33:38 Anaphyla xis 22091616 Completed 201305/31/2014 STORY: UNKNOWN CAUSE OCT 2012; RECORDED 02/25/20 14 8:52AM BY ANGELO Siegel MD, ANNOTATI ON/ADDEN DUM Angelo Ring MD [address] [facility] [address], [place], [address] , [facility] 6 21:33:38 Autoimmu ne disease 21005777 Completed 201305/31/2014 RECORDED 02/25/20 14 8:52AM BY ANGELO Siegel MD, ANNOTATI ON/ADDEN DUM Angelo Ring MD [address] [facility] [address], [place], [address] , [facility] 6 21:33:38 Screenin g for malignan t neoplasm of cervix Completed 201305/31/2014 RECORDED 02/25/20 14 8:30AM BY CASSIA MCPHERSON MA, ANNOTATI ON/ADD DUM Angelo Ring MD [address] [address], [place], [address] , [facility] 6 21:33:38 Lyme disease 44654002 Completed 201305/31/2014 IMPRESSI ON: SXS CONSISTE NT WITH EARLY LYME, WILL TREAT. 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 I DO NOT SEE ANY BELLS PALSY AT THIS POINT. REASSURE Janessa ZARATE THAT SHE HAS NO DROOP; RECORDED 02/25/20 14 8:52AM BY ANGELO Siegel MD, ANNOTATI ON/ Angelo Ring MD [address] [address], [place], [address] , [facility] 6 21:33:38 Panic disorder without agorapho litzy 90399136 Completed 201305/31/2014 RECORDED 02/25/20 14 8:52AM BY ANGELO Siegel MD, ANNOTVICKY ON/ DUM Angelo Ring MD [address] [address], [place], [address] , [facility] 6 21:33:38 Anaphyla xis 81360606 Completed 201306/27/2014 STORY: UNKNOWN CAUSE OCT 2012; RECORDED 02/25/20 14 8:52AM BY ANGELO Siegel MD, ANNOTATI ON/ Angelo Ring MD [address] [address], [place], [address] , [facility] 6 21:33:38 Autoimmu ne disease 63468131 Completed 201306/27/2014 RECORDED 02/25/20 14 8:52AM BY ANGELO Siegel MD, ANNOTATI ON/ADD DUM Angelo Ring MD [address] [facility] [address], [place], [address] , [facility] 6 21:33:38 Screenin g for malignan t neoplasm of cervix Completed 201306/27/2014 RECORDED 02/25/20 14 8:30AM BY CASSIA MCPHERSON MA, ANNOTATI ON/ADD DUM Angelo Ring MD [address] [facility] [address], [place], [address] , [facility] 6 21:33:38 Lyme disease 78894563 Completed 201306/27/2014 IMPRESSI ON: SXS CONSISTE NT WITH EARLY LYME, WILL TREAT. 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 I DO NOT SEE ANY BELLS PALSY AT THIS POINT. REASSURE Janessa ZARATE THAT SHE HAS NO DROOP; RECORDED 02/25/20 14 8:52AM BY ANGELO Siegel MD, ANNOTATI ON/ DUM Angelo Ring MD [address] [facility] [address], [place], [address] , [facility] 6 21:33:38 Panic disorder without agorapho litzy 71945581 Completed 201306/27/2014 RECORDED 02/25/20 14 8:52AM BY ANGELO Siegel MD, ANNOTATI ON/ DUM Angelo Ring MD [address] [facility] [address], [place], [address] , [facility] 6 21:33:38 Anxiety state 909235034 Completed 201303/28/2016 Angelo Ring MD [address] [facility] [address], [place], [address] , [facility] 6 21:33:38 Hashimot o thyroidi tis 02742379 Active 2013 Not Available [facility] 3 13:43:23 Cough 81263242 Completed 201312/09/2014 IMPRESSI ON: LUNGS ARE CLEAR, ALREADY ON AUGMENTI N FOR SINUSITI S WILL COMPLETE COURSE, REC. MUCOLYTI CS/HYDRA TION; RECORDED 03/03/20 14 11:53AM BY CHARLES PATHAK PA-C, OFFICE VISIT Angelo Ring MD [address] [facility] [address], [place], [address] , [facility] 6 21:33:38 Depressi ve disorder 61532729 Completed 201303/28/2016 Angelo Ring MD [address] [facility] [address], [place], [address] , [facility] 6 21:33:38 Recurren t major depressi ve episodes , in full remissio n Completed 201311/05/2019 Removal Reason: negative Angelo Ring MD [address] [facility] [address], [place], [address] , [facility] 9 09:34:27 Adult health examinat ion Completed 201305/31/2014 IMPRESSI ON: IMMUNIZA TION STATUS UTD WILL SCREEN BASED ON RISK FACTORS. REGULAR DENTAL CARE AND SEATBELT USE ADVISED. DISTRACT ED DRIVING DISCUSSE D. CERVICAL CANCER SCREENIN G UTD. ADVANCE DIRECTIV ES DISCUSSE D AND IN PLACE.; RECORDED 03/03/20 14 9:43AM BY CALEB HENRY MA, ANNOTATI ON/ADDEN DUM Angelo Ring MD [address] [facility] [address], [place], [address] , [facility] 6 21:33:38 Celiac disease 831701038 Completed 201304/02/2017 STORY: BLOOD TESTS NEGATIVE FOR CELIAC Angelo Ring MD [address] [facility] [address], [place], [address] , [facility] 7 10:21:10 Obesity 146371168 Completed 201304/02/2017 IMPRESSI ON: POTENTIA L ADVERSE HEALTH CONSEQUE NCES DISCUSSE D. INCREASE D PHYSICAL ACTIVITY AND APPROPRI ATWE DIETARY CHANGES ADVISED. ; RECORDED 03/03/20 14 9:43AM BY CALEB HENRY MA, OFFICE VISIT Cherie Hannah PA-C [address] [address], [place], [address] , [facility] 3 15:22:51 Chronic sinusiti s 64174096 Completed 201305/31/2014 IMPRESSI ON: C/W POST VIRAL SECONDAR Y BACTERIA L PROCESS. CALL INB/WORS E.; RECORDED 03/03/20 14 9:43AM BY CALEB HENRY MA, ALEX ON/PINEDA Ring MD [address] [address], [place], [address] , [facility] 6 21:33:38 Vitamin D deficien cy 94080680 Active 2013 Not Available [facility] 3 13:43:23 Adult health examinat ion Completed 201306/27/2014 IMPRESSI ON: IMMUNIZA TION STATUS UTD WILL SCREEN BASED ON RISK FACTORS. REGULAR DENTAL CARE AND SEATBELT USE ADVISED. DISTRACT ED DRIVING DISCUSSE D. CERVICAL CANCER SCREENIN G UTD. ADVANCE DIRECTIV ES DISCUSSE D AND IN PLACE.; RECORDED 03/03/20 14 9:43AM BY CALEB HENRY MA, ALEX ON/PINEDA Ring MD [address] [address], [place], [address] , [facility] 6 21:33:38 Chronic sinusiti s 29475024 Completed 201306/27/2014 IMPRESSI ON: C/W POST VIRAL SECONDAR Y BACTERIA L PROCESS. CALL INB/WORS E.; RECORDED 03/03/20 14 9:43AM BY CALEB HENRY MA, ALEX ON/PINEDA Ring MD [address] [address], [place], [address] , [facility] 6 21:33:38 Divertic ulitis of colon 138522734 Completed 201404/02/2017 Angelo Ring MD [address] [facility] [address], [place], [address] , [facility] 7 10:20:23 Macrocyt osis 253195101 Active 2018 Not Available [facility] 3 13:43:23 Irritabl e bowel syndrome 31342555 Active 2018 Not Available [facility] 3 13:43:23 Recurren t major depressi on in partial remissio n 31527015 Active 2018 Not Available [facility] 3 13:43:23 Essentia l hyperten lucia 19920444 Active 2019 Not Available [facility] 3 13:43:24 Anti-nuc lear factor detected 473960875 Active 2020 Not Available [facility] 3 13:43:23 Herpes zoster 6466139 Active 2020 Not Available [facility] 3 13:43:23 History of SARS-CoV -2 38837168218 7156648 Active 2021 Not Available [facility] 3 13:43:23 Tinea pedis 2300987 Active 2021 Not Available [facility] 3 13:43:24 Generali zed anxiety disorder 39345217 Active 2021 Not Available [facility] 3 13:43:23 Prediabe rema 420061018 Active 2022 Not Available [facility] 3 13:43:24 Hyperlip idemia 05048071 Active 2022 Not Available [facility] 3 13:43:23 Pain of right heel 46181721688 00281 Completed 202208/05/2023 Angelo Ring MD [address] [facility] [address], [place], [address] , [facility] 3 13:48:40 Candidia sis of vagina 89849820 Completed 202208/05/2023 Angelo Ring MD [address] [facility] [address], [place], [address] , [facility] 3 13:35:30 Snoring 96522523 Completed 202208/05/2023 Angelo Ring MD [address], [place], [address] , [facility] 3 13:48:55 Obstruct kathy sleep apnea of adult 61010232858 03 Active 2022 Not Available [facility] 3 13:43:23 Morbid obesity 190075155 Active 2022 Not Available [facility] 3 13:43:23 Family history of malignan t melanoma 944247008 Active 2023 Angelo Ring MD [address] [facility] [address], [place], [address] , [facility] 4 17:18:08 Body mass index 40+ - severely obese 543249523 Active 2023 Angelo Ring MD [address] [facility] [address], [place], [address] , [facility] 4 09:39:33 Venous insuffic iency of lower limb 935434084 Active 2024 Angelo Ring MD [address], [place], [address] , [facility] 5 14:24:45 Acute pharyngi tis 636825598 Completed 202402/22/2025 Angelo Ring MD [address], [place], [address] , [facility] 5 15:16:34 Moderate dehydrat ion 90135279383 05 Completed 202402/22/2025 Angleo Ring MD [address] [facility] [address], [place], [address] , [facility] 5 15:16:25 Food-bor ne gastroen teritis 126181327 Completed 202402/22/2025 Angelo Ring MD [address] [facility] [address], [place], [address] , [facility] 5 15:16:36 Axillary hidraden itis suppurat noah 946711773 Completed 202405/26/2025 Angelo Ring MD [address] [facility] [address], [place], [address] , [facility] 5 10:50:03 Pain of knee region 6509561768 Active 2024 Angelo Ring MD [address] [facility] [address], [place], [address] , [facility] 5 16:11:12 Steatoti c liver disease 713551980 Active 2024 Angelo Ring MD [address] [facility] [address], [place], [address] , [facility] 5 09:22:22 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 42991183408 172644 Active 2024 Angelo Ring MD [address] [facility] [address], [place], [address] , [facility] 5 12:58:57 Disorder of thymus gland 45966399 Completed 202409/08/2025 Angelo Ring MD [address] [facility] [address], [place], [address] , [facility] 5 09:11:11 Benign adenomat ous neoplasm 429763950 Active 2024 Angelo Ring MD [address], [place], [address] , [facility] 5 15:48:13 Pain of left shoulder region Active 2024 Angelo Rign MD [address], [place], [address] , [facility] 5 09:01:02 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 Procedures Surgical History Date Name Laterality Status Provider Name and Address Organization Details Recorded Time 10/18/20 25 laparoscopic sleeve gastrectomy completed Kristina Jenkins [facility] 10/19/2025 14:06:08 08/11/20 25 total thymectomy completed Angelo Ring MD [address] [address], [place], [address], [facility] 08/17/2025 13:07:18 06/21/20 25 colonoscopy completed Angelo Ring MD [address] [address], [place], [address], [facility] 09/08/2025 08:54:04 01/06/20 25 Most Recent Mammogram completed Lizeth Herrera [facility] 01/06/2025 11:27:53 12/22/19 24 Mammogram both breasts completed Charles Jack MA [facility] 09/07/2024 09:03:27 12/20/19 23 Mammogram both breasts completed Charles Jack MA [facility] 08/05/2023 13:06:43 12/05/19 22 Mammogram Screening completed Liyah Sheikh [facility] 12/28/2021 14:01:53 03/19/20 20 Date of Last Pap Smear completed Cassia Mcpherson MA [facility] 07/06/2020 15:07:41 06/21/20 18 Cholecystectomy completed Angelo Ring MD [address] [facility] [address] [facility], [place], [address], [facility] 06/23/2018 10:10:03 12/26/19 16 Gastrointestinal Surgery completed Angelo Ring MD [address] [facility] [address] [facility], [place], [address], [facility] 12/27/2015 08:41:03 03/15/20 11 Date of Last Colonoscopy completed Cassia Mcpherson MA [facility] 03/28/2016 08:32:59 03/15/20 11 Colonoscopy completed Cassia Mcpherson [facility] 03/28/2016 08:33:00 Dxa bone density study completed Burtonlakisha Mcpherson [facility] 04/02/2017 09:39:01 Imaging Results None recorded. Procedure Notes None recorded. Medical Equipment None Reported. Allergies Allergen ID Allergen Name Allergen Category Reaction Reaction Severity Criticality Documentation Date Start Date Code Code System Note Provider Name and Address Organization Details Recorded Time 46419 Substance with sulfonami de structure and antibacte rial mechanism of action (substanc e) medicatio n hives moderate Not available 12/09/20142013 90947 8003 SNOMED REACT ION: HIVES Lily her, [facility] 5 11:01:46 75939 acetamino phen / oxycodone medicatio n other mild Not available 12/09/2014 37149 3 RxNorm agita tion Angelo Ring MD [address] [facility] [address] [place] [address], [address], [facility] 5 08:52:25 77459 Dilaudid medicatio n rash mild Not available 01/03/20162015 25191 3 RxNorm hives ,rash , itchi ness, repor rafia from pt ED visit Flori Springer null, [facility] 6 08:13:55 45991 erythromy morro medicatio n other moderate Not available 03/28/20162015 4053 RxNorm MG flare Angelo Ring MD [address], [facility] [place], [address], [facility] 6 09:06:27 51745 amoxicill in medicatio n abdominal pain severe Not available 02/01/20192018 723 RxNorm Iriscruz Lutz LPN null, [facility] 9 09:36:51 49849 Bactrim medicatio n Not available Not available Not available 02/28/2020 38363 9 RxNorm Gita Money null, [facility] 0 10:20:34 98163 cephalexi n medicatio n rash moderate Not available 12/24/2022 2231 RxNorm Charles Jack MA null, [facility] 3 14:38:30 24427 bupropion Not available other mild Not available 12/24/2022 89525 RxNorm eleva rafia BP Not Available [facility] 3 17:58:18 4228 clindamyc in hydrochlo ride medicatio n hives moderate Not available 05/31/20142013 97432 RxNorm Cassia Mcpherson MA null, [facility] 6 08:28:39 4229 Paxil medicatio n Not available Not available Not available 05/31/20142013 43962 8 RxNorm REACT ION: ECCHY MOSIS Angelo Ring MD [address], [place], [address], [facility] 7 10:12:34 05562 pseudoeph edrine hydrochlo ride medicatio n Not available Not available Not available 10/24/20252024 44463 RxNorm Not Available [employer] - prod 5 10:16:27 83633 oxycodone medicatio n Not available Not available Not available 10/24/20252024 7804 RxNorm Not Available [employer] - prod 5 10:16:27 59108 clindamyc in Not available Not available Not available Not available 10/26/2025 2582 RxNorm Not Available [employer] - prod 5 13:59:37 58664 erythromy morro medicatio n Not available Not available Not available 10/26/2025 4053 RxNorm Not Available [employer] - prod 13:59:37 22709 hydromorp shivani medicatio n Not available Not available Not available 10/26/2025 3423 RxNorm Not Available [facility] [employer] - prod 5 13:59:37 91779 sulfadiaz ine medicatio n Not available Not available Not available 10/26/2025 45464 RxNorm Not Available [employer] - prod 13:59:37 11822 paroxetin e Not available Not available Not available Not available 10/26/2025 17529 RxNorm Not Available [employer] - prod 5 13:59:37 88854 sulfameth oxazole medicatio n rash severe high 10/26/20252024 09133 RxNorm Not Available [employer] - prod 5 14:00:38 24812 trimethop rim medicatio n rash severe high 10/26/20252024 39621 RxNorm Not Available [employer] External Data [employer] - prod 5 14:00:38 27876 clindamyc in hydrochlo ride medicatio n rash Not available low 10/26/20252024 92797 RxNorm Not Available [facility] [employer] - prod 5 14:02:09 [id number] paroxetin e hydrochlo ride medicatio n Not available Not available Not available 10/26/20252024 67561 0 RxNorm Not Available chucky - External [...] Relief 50 mcg/actua tion nasal spray,nacho pension [place] 1 spray every day by intranas al [...] Not Available Not Available Not Available Vitals None Recorded Social History Question Answer Notes LastModified by Organizat ion Details LastModified Time Tobacco Smoking Status Never Smoker Not Available [employer] 09/19/2020 03:36:39 Do You Have An Advance Directive? Yes HCP -Jacklyn, Kaela/Mauro Information not available 06/13/2023 Is Blood Transfusion Acceptable In An Emergency? Yes [id number] Information not available 09/19/2020 What Is Your Level Of Caffeine Consumption? Moderate Coffee [id number] Information not available 09/19/2020 How Much Tobacco Do You Chew? None [id number] Information not available 09/19/2020 What Type Of Diet Are You Following? REGULAR Information not available 07/15/2022 Which Illicit Or Recreational Drugs Have You Used? None [id number] Information not available 09/19/2020 Education Post Graduate [...] Or Greater Than 100 Degrees Fahrenheit? No [employer] Information not available 06/28/2020 Are You Or Anyone In Your Household A Health Care Provider Or Emergency Responder? No [employer] Information not available 06/28/2020 To The Best Of Your Knowledge Have You Been In Close Proximity To Any Individual Who Tested Positive For COVID-19? No [employer] Information not available 06/28/2020 *AWV ONLY* Are [...] How Many Children Do You Have? 3 [id number] Information not available 09/19/2020 Do You Use Protection During Sex? No Information not available 07/08/2024 Do You Use Your Seat Belt Or Car Seat Routinely? Yes Information not available 07/15/2022 Seat Belts Used Routinely Yes Information not available 06/13/2023 Are You Sexually Active? Yes [id number] Information not available 09/19/2020 Smoke Alarm In Home Yes Information not available 06/13/2023 Do You Have Smoke And Carbon Monoxide Detectors In Your Home? Yes Information not available 07/15/2022 At What Age Did You Start Smoking Tobacco? 1 [id number] Information not available 09/19/2020 Are You Passively Exposed To Smoke? No Information not available 03/17/2015 How Much Tobacco Do You Smoke? No [id number] Information not available 09/19/2020 Do You Use Sunscreen Routinely? Yes [id number] Information not available 09/19/2020 How Many Years Have You Smoked Tobacco? 0 [id number] Information not available 09/19/2020 Sex: Unknown Functional [...] used smokeless tobacco? Never used smokeless tobacco [id number] Information not available 09/19/2020 Are you currently employed? Yes [employer] [id number] Information not available 09/19/2020 Are you able to walk independently without assistance or assistive devices? YESWOREST Information not available 06/13/2023 Are you able to care for yourself independently? Yes [id number] Information not available 09/19/2020 What is your [...] mcg/0.3 mL dose 1 completed Lizeth her [facility] 09/29/2023 09:57:53 COVID-19, mRNA, LNP-S, PF, 30 mcg/0.3 mL dose 1 completed Lizeth Herrera [facility] 09/29/2023 09:57:53 COVID-19, mRNA, LNP-S, PF, 30 mcg/0.3 mL dose 1 completed Lizeth her [facility] 09/29/2023 09:57:53 COVID-19, mRNA, LNP-S, PF, 30 mcg/0.3 mL dose 1 completed Lizeth her [facility] 09/29/2023 09:57:53 Influenza, MDCK, quadrivalent, PF 1 completed Lizeth her [facility] 09/29/2023 09:57:53 Tdap 9 completed Lizeth her [facility] 09/29/2023 09:57:53 Influenza, split virus, quadrivalent, PF 8 completed Lizeth her [facility] 09/29/2023 09:57:53 Influenza, split virus, quadrivalent, PF 0 completed Lizeth her, [facility] 09/29/2023 09:57:53 COVID-19, mRNA, LNP-S, PF, 100 mcg/0.5mL dose or 50 mcg/0.25mL dose 2 completed Lizeth her, [facility] 09/29/2023 09:57:53 Influenza, split virus, quadrivalent, PF 6 completed Lizeth Herrera null, [facility] 09/29/2023 09:57:53 Influenza, split virus, quadrivalent, PF 9 completed Lizeth Herrera null, [facility] 09/29/2023 09:57:53 Influenza, MDCK, quadrivalent, PF 2 completed Lizeth her, [facility] 09/29/2023 09:57:53 COVID-19, mRNA, LNP-S, bivalent, PF, 50 mcg/0.5 mL or 25mcg/0.25 mL dose 2 completed Lizeth her, [facility] 09/29/2023 09:57:53 COVID-19, mRNA, LNP-S, PF, 50 mcg/0.5 mL 3 completed Lizeth her, [facility] 09/29/2023 09:57:53 Influenza, MDCK, trivalent, PF 4 completed Charles Jack MA null, [facility] 09/07/2024 08:52:06 COVID-19, mRNA, LNP-S, PF, mina-sucrose, 30 mcg/0.3 mL 4 completed Charles Jack MA null, [facility] 09/07/2024 08:52:06 Influenza, MDCK, trivalent, PF 5 completed Chantell Montiel MA null, [facility] 09/08/2025 08:26:14 COVID-19, mRNA, LNP-S, PF, mina-sucrose, 30 mcg/0.3 mL 5 completed Chantell Montiel MA taina, [facility] 09/08/2025 08:26:14 Tdap 9 completed Lizeth Herrera taina, [facility] 09/29/2023 09:57:53 influenza, seasonal, intradermal, preservative free 3 completed Lizeth Herrera null, [facility] 09/29/2023 09:57:53 Influenza, split virus, quadrivalent, PF 3 completed Angelo Ring MD [address], [address], [facility] 08/05/2023 13:57:35 Past Encounters Encounter ID Performer Location Encounter Start Date Encounter Closed Date Diagnosis/Indication Diagnosis SNOMED-CT Code Diagnosis ICD10 Code Diagnosis IMO Codes Diagnosis Note [id number] Angelo Ring MD Main Office [address] [facility] [address] [place] [address] 10/24/2025 10:14:30 10/24/2025 13:42:06 Body mass index 40+ - severely obese 367412372 E66.01 Z68.42 Making strides with [facility] and Dr. Maynard as well. Health Concerns Section Related Observation LastModified by Organization Detai ls LastModified Time None Recorded Concern Status LastModified by Organization Details LastModified Time None Recorded Payers Encounter Date Sequence Insurance Name Policy Number Policy Quick Covered Member ID Quick Member ID Guarantor Name 10/24/2025 1 [facility] [place] [place] [id number] 1 Joanna Elise [id number] Joanna Elise Notes Date Note Type Note Provider Name and Address Organization Details Recorded Time 5 text/html Hospitalization Contact RecordReported by PatientHospitalization Contact RecordFor follow up, patient [facility]sh[facility],admit date: (please enter in format 'mm/dd/yyyy') (10/18/2025),date of discharge: (please enter in format [...] binder and followup with surgeon as instructed. Business Systems Developer DONOVAN call to patient regarding recent discharge [...] Friday10/28/2025 at 8:30 am. Angelo Ring MD [address] [address], [place], [address], [facility] 10/24/2025 12:05:02 OBGyn Episode No OBEpisode recorded.
== END 2025-11-14 13:04 | disposition home or self-care (01) ==
LOC: HO.HBST 12:40
PROVIDERS: PCP Pediatrics; Visit Provider Counselor Mental Health
DX: F41.1 Generalized anxiety disorder (principal); F41.0 Panic disorder [episodic paroxysmal anxiety]; F32.9 Major depressive disorder, single episode, unspecified; Z98.84 Bariatric surgery status
CPT/HCPCS: 90832